=== PATIENT | female | born 1965 | race Caucasian/White ===

== ENCOUNTER → 2019-02-27 | Outpatient (CLI) | payer MEDICARE ==
--- NOTE | 2019-02-27 09:58 | RADIOLOGY REPORT (SQ) ---
EXAM DESCRIPTION: MRI CERVICAL SPINE COMBO COMPLETED DATE/TIME: 02/27/2019 9:00 am REASON FOR STUDY: CERVICAL DISC DISORDER WITH RADICULOPATHY (M50.10) M50.10 CERVICAL DISC DISORDER W RADICULOPATHY, UNSP CERVICAL COMPARISON: None. TECHNIQUE: Sagittal and Axial imaging includes T1, T2, STIR and gradient echo sequences. T1 post kayode olinium sequences. CONTRAST TYPE AND DOSE: 10 mL Dotarem. RENAL FUNCTION: GFR > 60. LIMITATIONS: Postoperative artifact from anterior fusion. This obscures regional tissues to some ex tent. FINDINGS: ALIGNMENT: Normal. VERTEBRAE: Intact. BONE MARROW: Normal. No marrow replacement or reactive changes. DISCS: Above and below surgery, generally maintained. HARDWARE: Anterior instrumentation with susceptibility artifact spanning C3 through C6. CORD AND BASE OF BRAIN: Artifact versus subtle dorsal intrasubstance cord signal at roughly the C5-6 level. This may represent minimal myelopathic signal in the cord. SOFT TISSUES: Normal as assessed. Shotty neck nodes. C1-C2: No significant spinal stenosis. C2-C3: No significant spinal stenosis or exit foraminal stenosis. C3-C4: No significant spinal stenosis or exit foraminal stenosis. C4-C5: No significant spinal stenosis or exit foraminal stenosis. C5-C6: Suspect mild posterior disc osteophyte complex without cord impingement. Mild central narrowi ng here. C6-C7: No significant spinal stenosis or exit foraminal stenosis. C7-T1: No significant spinal stenosis or exit foraminal stenosis. UPPER THORACIC: Incompletely imaged. No significant spinal stenosis or exit foraminal stenosis. ENHANCEMENT: No abnormal enhancement. OTHER: No other significant finding. IMPRESSION: 1. Prior anterior instrumentation, C3 through C6. 2. Suspect some slight central canal encroachment at the C5-6 level with minimal disc osteophyte comp chanda. No cord compression or overt spinal stenosis. COMMENT: None. TECHNICAL DOCUMENTATION: JOB ID: [id number] [employer]- All Rights Reserved Reading location - IP/workstation name: [email or web address]
== END ==
LOC: RAD 07:25
PROVIDERS: ATTEND Nurse Practitioner Primary Care
DX: M50.10 Cervical disc disorder with radiculopathy, unspecified cervical region (principal)
CPT/HCPCS: 72156; A9576

== ENCOUNTER → 2019-04-28 | Outpatient (CLI) | payer MEDICARE ==
[~2019-04-28] MED LIST: DIAZEPAM 5 MG TABLET ONE
--- NOTE | 2019-04-28 15:48 | RADIOLOGY REPORT (SQ) ---
EXAM DESCRIPTION: L SPINE FLEX/EXT ONLY COMPLETED DATE/TIME: 04/28/2019 2:51 pm REASON FOR STUDY: LUMBAR RADICULOPATHY M54.16 RADICULOPATHY, LUMBAR REGION R26.2 DIFFICULTY IN WAL JONH, NOT ELSEWHERE CLASSIFIED M62.81 MUSCLE WEAKNESS (GENERALIZED) COMPARISON: None. NUMBER OF VIEWS: Two view. TECHNIQUE: Lateral views of the lumbar spine with flexion and extension. LIMITATIONS: None. FINDINGS: MINERALIZATION: Normal. SEGMENTATION: Normal. No transitional anatomy. ALIGNMENT: Normal. FLEXION/EXTENSION: No instability. VERTEBRAE: Maintained height. No fracture or worrisome bone lesion. DISCS: Preserved height. No significant osteophytes or end plate irregularity. POSTERIOR ELEMENTS: Pedicles and facets are intact. No pars defect or posterior arch defects. HARDWARE: None in the spine. OTHER: No other significant finding. IMPRESSION: NO SIGNIFICANT FINDING IN THE SPINE. NO INSTABILITY ON FLEXION/EXTENSION. TECHNICAL DOCUMENTATION: JOB ID: [id number] [employer]- All Rights Reserved Reading location - IP/workstation name: [email or web address]
--- NOTE | 2019-04-28 16:35 | RADIOLOGY REPORT (SQ) ---
EXAM DESCRIPTION: MRI HEAD WITHOUT COMPLETED DATE/TIME: 04/28/2019 3:52 pm REASON FOR STUDY: DIFFICULTY IN WALKING, NOT ELSEWHERE CLASSIFIED M54.16 RADICULOPATHY, LUMBAR DODIE ON R26.2 DIFFICULTY IN WALKING, NOT ELSEWHERE CLASSIFIED M62.81 MUSCLE WEAKNESS (GENERALIZED) COMPARISON: None. TECHNIQUE: Multiplanar imaging includes non-contrasted T1, T2, FLAIR, and diffusion with ADC map seq uences. Images stored on PACS. LIMITATIONS: None. FINDINGS: ANATOMY: No developmental anomalies. Normal vascular flow voids. Pituitary fossa normal. CSF SPACES: Normal in size and contour. No hemorrhage. CEREBRUM: There is an old lacunar infarct in the left posterior thalamus on axial T2 image 15. Minim al chronic small vessel ischemic changes present in the deep hemispheric white matter along the left atrium, lateral ventricle. No MR evidence of hemispheric acute ischemic change, acute hemorrhage mas s effect or midline shift. POSTERIOR FOSSA: A subacute left pontine nonhemorrhagic infarct is present, best shown on axial diffu mick series 4, image 8. No hemorrhage. No edema, masses or mass effect. Internal auditory canals, c erebello-pontine angles, mastoids normal. DIFFUSION IMAGING: Positive for a left pontine subacute infarct. ORBITS: No masses. Globes normal. PARANASAL SINUSES: No fluid levels. Mucosa normal. OTHER: No other significant finding. IMPRESSION: Positive study for left pontine subacute infarct. Remote prior left thalamus lacunar infarct and left deep periatrial white matter small vessel disease EVIDENCE OF ACUTE STROKE: Subacute nonhemorrhagic left pontine infarct TECHNICAL DOCUMENTATION: JOB ID: [id number] [employer]- All Rights Reserved Reading location - IP/workstation name: [email or web address]
--- NOTE | 2019-04-28 16:42 | RADIOLOGY REPORT (SQ) ---
EXAM DESCRIPTION: MRI LUMBAR SPINE WITHOUT COMPLETED DATE/TIME: 04/28/2019 3:52 pm REASON FOR STUDY: LUMBAR RADICULOPATHY M54.16 RADICULOPATHY, LUMBAR REGION R26.2 DIFFICULTY IN WAL JONH, NOT ELSEWHERE CLASSIFIED M62.81 MUSCLE WEAKNESS (GENERALIZED) COMPARISON: None. TECHNIQUE: Sagittal and Axial imaging includes T1, T2, STIR and gradient echo sequences. Coronal T2/ HASTE imaging. LIMITATIONS: None. FINDINGS: VISUALIZED UPPER ABDOMEN: Limited evaluation. No acute or suspicious findings suggested. SEGMENTATION: No transitional anatomy. The lowest well-developed disc space is labeled L5-S1. ALIGNMENT: Minimal anterolisthesis of L4 over L5 VERTEBRAE: Intact. BONE MARROW: Normal. No marrow replacement or reactive changes. DISC SIGNAL: Diffuse decreased T2 weighted intervertebral disc signal without disc space loss of heig ht POSTERIOR ELEMENTS: Generally intact. No pars defect evident. HARDWARE: None in the spine. CORD AND CONUS: Normal in size and signal intensity. Conus at the L1-2 level. SOFT TISSUES: No aortic aneurysm seen. No bulky retroperitoneal adenopathy or mass. No paraspinal mas s or fluid. T11-12: At the upper edge of the field of view. Moderate bilateral facet hypertrophy is present at T11-12 causing mild bilateral foraminal narrowing. No central stenosis. T12-L1: Unremarkable L1-L2: Moderate bilateral facet hypertrophy is present with ligamentum flavum thickening. No posteri or disc bulging. No central or foraminal stenosis. L2-L3: Moderate bilateral facet hypertrophy is present with ligamentum flavum thickening. No posteri or disc bulging. No central or foraminal stenosis. L3-L4: Moderate bilateral facet and ligament hypertrophy is present. No posterior disc bulging or si gnificant central or foraminal stenosis. L4-L5: Mild central canal stenosis is present at L4-5, resulting from bulky bilateral facet hypertrop hy, mild grade 1 anterolisthesis of L4 over L5, and minimal posterior disc bulging. Mild bilateral i nferior foraminal narrowing is present without exiting L4 nerve root impingement L5-S1: Moderate bilateral facet and ligament hypertrophy is present. Moderate right, mild left ashly inal narrowing. No significant central stenosis. SACRUM: Visualized upper sacrum intact. OTHER: No other significant findings. IMPRESSION: Degenerative changes with multilevel facet arthropathy. No high-grade central or forami nal encroachment TECHNICAL DOCUMENTATION: JOB ID: [id number] [employer]- All Rights Reserved Reading location - IP/workstation name: [email or web address]
== END ==
LOC: RAD 12:11
PROVIDERS: ATTEND Specialist
DX: M54.16 Radiculopathy, lumbar region (principal); I63.9 Cerebral infarction, unspecified; R26.2 Difficulty in walking, not elsewhere classified; M62.81 Muscle weakness (generalized)
CPT/HCPCS: 70551; 72148; 72120; A9270

== ENCOUNTER → 2019-05-04 | Outpatient (CLI) | payer MEDICARE ==
--- NOTE | 2019-05-04 13:00 | RADIOLOGY REPORT (SQ) ---
EXAM DESCRIPTION: CAROTID DOPPLER COMPLETED DATE/TIME: 05/04/2019 12:17 pm REASON FOR STUDY: CAROTID STENOSIS I65.29 OCCLUSION AND STENOSIS OF UNSPECIFIED CAROTID ARTERY COMPARISON: None. TECHNIQUE: Grayscale ultrasound, Doppler velocity and spectra, and color Doppler images acquired of the extra-cranial carotid and vertebral arteries. Images stored on PACS. LIMITATIONS: None. FINDINGS: RIGHT CAROTID CCA Velocities: Within normal limits. ICA Velocities Peak systolic 263 cm/s in the midportion. End diastolic 107 cm/s. Proximal ICA/CCA peak systolic ratio 3.82. Spectra normal. Moderate plaque and luminal narrowing in the proximal and mid right ICA. LEFT CAROTID CCA Velocities: Within normal limits. ICA Velocities Peak systolic 105 cm/s. End diastolic 45 cm/s. Proximal ICA/CCA peak systolic ratio 1.03. Spectra normal. Mild -moderate plaque. VERTEBRAL ARTERIES: Antegrade flow. Normal waveforms. SUBCLAVIAN ARTERIES: No finding. OTHER: No other significant finding. IMPRESSION: Moderate right mid ICA stenosis, greater than 70% by velocity and grayscale. COMMENT: Quality ID #195: Velocity criteria are extrapolated from the diameter data as defined by t he Society of Radiologists in Ultrasound Consensus Conference. Radiology 2003: 229; 340-346. TECHNICAL DOCUMENTATION: JOB ID: [id number] [place]-72 2010 [employer]- All Rights Reserved Reading location - IP/workstation name: [email or web address]
== END ==
LOC: SP 10:14
PROVIDERS: ATTEND Specialist
DX: I65.21 Occlusion and stenosis of right carotid artery (principal)
CPT/HCPCS: 93880

== ENCOUNTER 2019-05-28 13:58 | Inpatient (IN) | payer MEDICARE ==
[2019-05-28] MEDS ORDERED: NORMAL SALINE 1000 ML 1,000 ML IV ONE ×2 (14:12→15:13)
--- NOTE | 2019-05-28 14:41 | RADIOLOGY REPORT (SQ) ---
EXAM DESCRIPTION: CHEST SINGLE VIEW COMPLETED DATE/TIME: 05/28/2019 2:32 pm REASON FOR STUDY: AMS COMPARISON: None. NUMBER OF VIEWS: One view. TECHNIQUE: Single frontal radiographic image of the chest acquired. LIMITATIONS: None. FINDINGS: LUNGS AND PLEURA: Stable appearance. MEDIASTINUM AND HILAR STRUCTURES: Stable heart size and mediastinal structures. HEART AND VASCULAR STRUCTURES: Stable appearance. SUPPORT DEVICES: Appropriate location without change. BONES: No acute findings. OTHER: No other significant finding. IMPRESSION: STABLE APPEARANCE OF THE CHEST. SUPPORT DEVICES UNCHANGED. TECHNICAL DOCUMENTATION: JOB ID: [id number] [employer]- All Rights Reserved Reading location - IP/workstation name: [email or web address]
[2019-05-28 14:51] LABS: VENOUS BLOOD BASE EXCESS -11.3 mmol/L; VENOUS BLOOD PCO2 40.8 mmHg (35-63); VENOUS BLOOD PH 7.21 (7.30-7.42)
--- NOTE | 2019-05-28 14:54 | RADIOLOGY REPORT (SQ) ---
EXAM DESCRIPTION: CT CERVICAL SPINE WITHOUT COMPLETED DATE/TIME: 05/28/2019 2:43 pm REASON FOR STUDY: AMS COMPARISON: None. TECHNIQUE: Axial images acquired through the cervical spine without intravenous contrast. Images re viewed with lung, soft tissue and bone windows. Reconstructed coronal and sagittal MPR images review ed. Images stored on PACS. All CT scanners at this facility use dose modulation, iterative reconstruction, and/or weight based d osing when appropriate to reduce radiation dose to as low as reasonably achievable (ALARA). [facility]: Dose Right [facility]: CareDose [facility]: Dose Right [facility]: Teradose 4D [facility]: [employer] RADIATION DOSE: CT Rad equipment meets quality standard of care and radiation dose reduction techniq ues were employed. CTDIvol: 17.7 - 23.9 mGy. DLP: 692 mGy-cm. mGy. LIMITATIONS: None. FINDINGS: ALIGNMENT: Anatomic. MINERALIZATION: Normal. VERTEBRAL BODIES: No fractures or dislocation. DISCS: Multilevel discectomy and fusion from C3 through C7. FACETS, LATERAL MASSES, POSTERIOR ELEMENTS: No fractures. No dislocation. No acute findings. HARDWARE: None in the spine. VISUALIZED RIBS: No fractures. LUNG APICES AND SOFT TISSUES: Emphysema. OTHER: No other significant finding. IMPRESSION: No fracture or static subluxation of the cervical spine. Multilevel discectomy and fusi on from C3 through C7. TECHNICAL DOCUMENTATION: JOB ID: [id number] Quality ID # [id number]: Final reports with documentation of one or more dose reduction techniques (e.g., Au tomated exposure control, adjustment of the mA and/or kV according to patient size, use of iterative reconstruction technique) 2010 [employer]- All Rights Reserved Reading location - IP/workstation name: [email or web address]
[2019-05-28 14:56] LABS: ABSOLUTE BASOPHILS # (AUTO) 0.1 10^3/uL (0.0-0.2); ABSOLUTE LYMPHOCYTES (AUTO) 1.2 10^3/uL (0.5-4.7); ABSOLUTE MONOCYTES (AUTO) 1.8 10^3/uL (0.1-1.4); ABSOLUTE NEUT (AUTO) 16.1 10^3/uL (1.7-8.2); BASOPHILS % (AUTO) 0.6 % (0-2); HEMATOCRIT 48.4 % (36.0-47.0); HEMOGLOBIN 15.6 g/dL (12.0-15.5); LYMPHOCYTES % (AUTO) 6.3 % (13-45); MEAN CORPUSCULAR HEMOGLOBIN 28.9 pg (27.0-33.4); MEAN CORPUSCULAR HGB CONC 32.3 g/dL (32.0-36.0); MEAN CORPUSCULAR VOLUME 90 fl (80-97); MONOCYTES % (AUTO) 9.3 % (3-13); PLATELET COUNT 389 10^3/uL (150-450); RED CELL DISTRIBUTION WIDTH 15.5 % (11.5-14.0); SEGMENTED NEUTROPHILS % (AUTO) 83.8 % (42-78); TOTAL CELLS COUNTED % (AUTO) 100 %; WHITE BLOOD COUNT 19.2 10^3/uL (4.0-10.5)
--- NOTE | 2019-05-28 14:56 | RADIOLOGY REPORT (SQ) ---
EXAM DESCRIPTION: CT HEAD WITHOUT COMPLETED DATE/TIME: 05/28/2019 2:43 pm REASON FOR STUDY: AMS COMPARISON: None. TECHNIQUE: Axial images acquired through the brain without intravenous contrast. Images reviewed wi th bone, brain and subdural windows. Additional sagittal and coronal reconstructions were generated. Images stored on PACS. All CT scanners at this facility use dose modulation, iterative reconstruction, and/or weight based d osing when appropriate to reduce radiation dose to as low as reasonably achievable (ALARA). [facility]: Dose Right [facility]: CareDose [facility]: Dose Right [facility]: Teradose 4D [facility]: [employer] RADIATION DOSE: CT Rad equipment meets quality standard of care and radiation dose reduction techniq ues were employed. CTDIvol: 53.2 mGy. DLP: 1017 mGy-cm. mGy. LIMITATIONS: None. FINDINGS: VENTRICLES: Normal size and contour. CEREBRUM: No masses. No hemorrhage. No midline shift. No evidence for acute infarction. Normal gra y/white matter differentiation. No areas of low density in the white matter. CEREBELLUM: No masses. No hemorrhage. No alteration of density. No evidence for acute infarction. EXTRAAXIAL SPACES: No fluid collections. No masses. ORBITS AND GLOBE: No intra- or extraconal masses. Normal contour of globe without masses. CALVARIUM: No fracture. PARANASAL SINUSES: No fluid or mucosal thickening. SOFT TISSUES: No mass or hematoma. OTHER: No other significant finding. IMPRESSION: No acute intracranial pathology. EVIDENCE OF ACUTE STROKE: NO. COMMENT: Quality ID # 436: Final reports with documentation of one or more dose reduction techniques (e.g., Automated exposure control, adjustment of the mA and/or kV according to patient size, use of iterative reconstruction technique) TECHNICAL DOCUMENTATION: JOB ID: [id number] [employer]- All Rights Reserved Reading location - IP/workstation name: [email or web address]
[2019-05-28 15:09] LABS: APPEARANCE,URINE CLEAR; BILIRUBIN,URINE NEGATIVE (NEGATIVE); COLOR,URINE YELLOW; GLUCOSE, URINE >=500 mg/dL (NEGATIVE); KETONES,URINE 20 mg/dL (NEGATIVE); LEUKOCYTE ESTERASE,URINE NEGATIVE (NEGATIVE); NITRITE,URINE NEGATIVE (NEGATIVE); PROTEIN,URINE 100 mg/dL (NEGATIVE); URINE SPECIFIC GRAVITY 1.029; UROBILINOGEN,URINE NEGATIVE mg/dL (<2.0)
[2019-05-28 15:18] LABS: ALANINE AMINOTRANSFERASE 19 U/L (9-52); ALBUMIN 4.5 g/dL (3.5-5.0); ALKALINE PHOSPHATASE 189 U/L (38-126); ASPARTATE AMINO TRANSFERASE 25 U/L (14-36); BILIRUBIN,DIRECT 0.6 mg/dL (0.0-0.4); BILIRUBIN,TOTAL 0.7 mg/dL (0.2-1.3); BLOOD UREA NITROGEN 31 mg/dL (7-20); CALCIUM 10.2 mg/dL (8.4-10.2); CREATINE KINASE 414 U/L (30-135); POTASSIUM 4.4 mmol/L (3.6-5.0); TOTAL PROTEIN 7.6 g/dL (6.3-8.2)
[2019-05-28 15:27] LABS: CREATINE KINASE MB 6.78 ng/mL (<4.55)
[2019-05-28 15:33] LABS: FREE T3 2.3 pg/mL (2.77-5.27); FREE T4 (FREE THYROXINE) 1.18 ng/dL (0.78-2.19)
[2019-05-28 15:35] LABS: TROPONIN I 0.13 ng/mL
[2019-05-28] MEDS ORDERED: NORMAL SALINE 1000 ML 1,000 ML IV PRN (15:35)
[2019-05-28 15:37] LABS: INTERNATIONAL RATION (INR) 0.97; PROTHROMBIN TIME 12.8 SEC (11.4-15.4)
[2019-05-28] MEDS: INSULIN REG, HUMAN 100 UNIT/ML 3 ML VIAL (PYX) IV ONE ×2 (15:42→16:55)
[2019-05-28 15:47] LABS: THYROID STIMULATING HORMONE 6.16 uIU/mL (0.47-4.68)
[2019-05-28 15:48] LABS: CARBON DIOXIDE 17 mmol/L (22-30); CHLORIDE 107 mmol/L (98-107)
[2019-05-28 15:49] LABS: ALCOHOL < 10 mg/dL (NONE DETECTED); ANION GAP 21 (5-19)
[2019-05-28 15:51] LABS: GLUCOSE 690 mg/dL (75-110)
[2019-05-28] MEDS ORDERED: DEXTROSE 40% GEL 15 GM TUBE X 2 PO PRN (16:00)
[2019-05-28] MEDS ORDERED: DEXTROSE 50%-WATER SYRINGE 25 GM/50 ML DOSE IV PRN (16:00)
[2019-05-28] MEDS ORDERED: DEXTROSE 40% GEL 15 GM TUBE PO PRN (16:00)
[2019-05-28] MEDS ORDERED: DEXTROSE 50%-WATER SYRINGE 12.5 GM/25 ML DOSE IV PRN (16:00)
[2019-05-28] MEDS ORDERED: INSULIN, REGULAR 100 UNIT/100 ML NORMAL SALINE IV PRN ×2 (16:00)
[2019-05-28] MEDS ORDERED: GLUCAGON,HUMAN RECOMB 1 MG INJ IM PRN (16:00)
[2019-05-28 16:02] LABS: URINE AMPHETAMINES SCREEN NEGATIVE; URINE BARBITURATES SCREEN NEGATIVE; URINE BENZODIAZEPINES SCREEN NEGATIVE; URINE COCAINE SCREEN NEGATIVE; URINE MARIJUANA (THC) SCREEN NEGATIVE; URINE METHADONE SCREEN NEGATIVE; URINE PHENCYCLIDINE SCREEN NEGATIVE
[2019-05-28 16:08] LABS: ACETAMINOPHEN < 10 ug/mL (10-30); SALICYLATE < 1.0 mg/dL (2.0-20.0)
[2019-05-28] MEDS ORDERED: LORAZEPAM INJ 2 MG/1 ML VIAL IV ONE (17:25)
[2019-05-28] MEDS: LIDOCAINE 1% INJ-PF (10 MG/ML) 30 ML SDV INJ ONE ×2 (17:38→19:32)
[2019-05-28] MEDS ORDERED: ACETAMINOPHEN 325 MG TABLET PO PRN (17:41)
[2019-05-28] MEDS ORDERED: IPRATROPIUM/ALBUTEROL 0.5-2.5 MG/3 ML AMPUL NEB PRN (17:41)
[2019-05-28] MEDS ORDERED: ONDANSETRON HCL INJ/PF 4 MG/2 ML SDV IV PRN (17:41)
[2019-05-28] MEDS ORDERED: CEFTRIAXONE 1 GM/D5W RTU 1 GM/50 ML RTUPB IV ONE (18:00)
[2019-05-28] MEDS ORDERED: VANCOMYCIN HCL 0 MG in DEXTROSE 5%-WATER 250 ML IV NR (18:00)
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
--- NOTE | 2019-05-28 18:06 | PDOC H&P ---
History of Present Illness Admission Date/PCP: DELFINA NIETO MD History of Present Illness: SHELLEY RODRÍGUEZ is a 54 year old female patient brought by EMS for altered mental status. Since patient is mentally altered and sedated she is not source of history. Brief history is obtained orally from the ER attending and reviewing available charts. Per ER attending note patient arrives via EMS was found by neighbor under her bed. Patient initially was unresponsive but later patient become agitated and combative. She was given by EMS to milligram of IV Ativan. Upon arrival patient was found to be on 5 L oxygen via nasal cannula and she saturates 97%. Her initial blood work shows mild hyponatremia with sodium of 145.3 market hyperglycemia with blood glucose level of 680, creatinine of 1.26 and mild rhabdomyolysis. Her CT head spine and MRI of the brain are negative for acute process. With unresponsiveness and leukocytosis the possibility of meningitis entertained and LP requested. Further detailed history and review of systems unobtainable. Social History Smoking Status: Current Every Day Smoker - Advance Directive Resuscitation Status: Full Code Family History Parental Family History Reviewed: Yes Children Family History Reviewed: Yes Sibling(s) Family History Reviewed.: Yes Medication/Allergy Home Medications: Atorvastatin Calcium [Lipitor 10 mg Tablet] 10 mg PO QHS 05/28/19 Baclofen [Baclofen 10 mg Tablet] 10 mg PO TIDP PRN 05/28/19 Dexamethasone 2 mg PO Q6 05/28/19 Gabapentin [Neurontin] 800 mg PO QIDP PRN 05/28/19 Insulin Lispro [Humalog Kwikpen U-100] See Protocol SQ MEALS 05/28/19 Levothyroxine Sodium [Synthroid] 200 mcg PO Q6AM 05/28/19 Lisinopril [Prinivil] 20 mg PO DAILY 05/28/19 Metformin HCl [Glucophage] 1,000 mg PO BID 05/28/19 Quetiapine Fumarate [Seroquel 100 mg Tablet] 100 mg PO QHS 05/28/19 Zolpidem Tartrate [Ambien] 10 mg PO HSP PRN 05/28/19 Review of Systems ROS unobtainable: Due to mental status Physical Exam Vital Signs: Temp Pulse Resp BP Pulse Ox 19 194/109 H 100 05/28/19 16:36 05/28/19 16:36 05/28/19 16:15 Intake & Output 05/27/19 05/28/19 05/29/19 06:59 06:59 06:59 Intake Total 2000 Balance 2001 Weight 58.4 kg General appearance: PRESENT: mild distress Head exam: PRESENT: other - Laceration on her neck and erythema over the right supraorbital region Eye exam: PRESENT: other - [place] sclerae Neck exam: ABSENT: carotid bruit, JVD, lymphadenopathy, thyromegaly Respiratory exam: PRESENT: clear to auscultation jaqueline. ABSENT: rales, rhonchi, wheezes Cardiovascular exam: PRESENT: RRR. ABSENT: diastolic murmur, rubs, systolic murmur GI/Abdominal exam: PRESENT: normal bowel sounds, soft. ABSENT: distended, guarding, mass, organolmegaly, rebound, tenderness Neurological exam: PRESENT: other - She responds to painful stimuli appropriately but withdrawing herself from the stimulus Results Laboratory Results: 05/28/19 14:20 05/28/19 14:20 05/28/19 05/28/19 05/28/19 14:20 14:20 14:20 WBC 19.2 H RBC 5.40 H Hgb 15.6 H Hct 48.4 H MCV 90 MCH 28.9 MCHC 32.3 RDW 15.5 H Plt Count 389 Seg Neutrophils % 83.8 H Lymphocytes % 6.3 L Monocytes % 9.3 Eosinophils % 0.0 Basophils % 0.6 Absolute Neutrophils 16.1 H Absolute Lymphocytes 1.2 Absolute Monocytes 1.8 H Absolute Eosinophils 0.0 Absolute Basophils 0.1 VBG pH VBG pCO2 VBG HCO3 VBG Base Excess Sodium 145.3 H Potassium 4.4 Chloride 107 Carbon Dioxide 17 L Anion Gap 21 H BUN 31 H Creatinine 1.26 H Est GFR ( Amer) 53 L Est GFR (Non-Af Amer) 44 L Glucose 690 H* Lactic Acid 3.3 H Calcium 10.2 Total Bilirubin 0.7 AST 25 ALT 19 Alkaline Phosphatase 189 H Ammonia Total Protein 7.6 Albumin 4.5 TSH Free T4 Free T3 pg/mL Urine Color Urine Appearance Urine pH Ur Specific [place] Urine Protein Urine Glucose (UA) Urine Ketones Urine Blood Urine Nitrite Ur Leukocyte Esterase Urine WBC (Auto) 05/28/19 05/28/19 05/28/19 14:20 14:20 14:20 WBC RBC Hgb Hct MCV MCH MCHC RDW Plt Count Seg Neutrophils % Lymphocytes % Monocytes % Eosinophils % Basophils % Absolute Neutrophils Absolute Lymphocytes Absolute Monocytes Absolute Eosinophils Absolute Basophils VBG pH 7.21 L VBG pCO2 40.8 VBG HCO3 16.0 L VBG Base Excess -11.3 Sodium Potassium Chloride Carbon Dioxide Anion Gap BUN Creatinine Est GFR ( Amer) Est GFR (Non-Af Amer) Glucose Lactic Acid Calcium Total Bilirubin AST ALT Alkaline Phosphatase Ammonia Total Protein Albumin TSH 6.16 H Free T4 1.18 Free T3 pg/mL 2.30 L Urine Color YELLOW Urine Appearance CLEAR Urine pH 5.0 Ur Specific [place] 1.029 Urine Protein 100 H Urine Glucose (UA) >=500 H Urine Ketones 20 H Urine Blood MODERATE H Urine Nitrite NEGATIVE Ur Leukocyte Esterase NEGATIVE Urine WBC (Auto) 1 05/28/19 15:05 WBC RBC Hgb Hct MCV MCH MCHC RDW Plt Count Seg Neutrophils % Lymphocytes % Monocytes % Eosinophils % Basophils % Absolute Neutrophils Absolute Lymphocytes Absolute Monocytes Absolute Eosinophils Absolute Basophils VBG pH VBG pCO2 VBG HCO3 VBG Base Excess Sodium Potassium Chloride Carbon Dioxide Anion Gap BUN Creatinine Est GFR ( Amer) Est GFR (Non-Af Amer) Glucose Lactic Acid Calcium Total Bilirubin AST ALT Alkaline Phosphatase Ammonia < 8.7 L Total Protein Albumin TSH Free T4 Free T3 pg/mL Urine Color Urine Appearance Urine pH Ur Specific [place] Urine Protein Urine Glucose (UA) Urine Ketones Urine Blood Urine Nitrite Ur Leukocyte Esterase Urine WBC (Auto) 05/28/19 05/28/19 14:20 14:20 Creatine Kinase 414 H CK-MB (CK-2) 6.78 H Troponin I 0.130 Impressions: Cervical Spine CT 05/28/19 14:12 IMPRESSION: No fracture or static subluxation of the cervical spine. Multileve l discectomy and fusion from C3 through C7. Head CT 05/28/19 14:12 IMPRESSION: No acute intracranial pathology. EVIDENCE OF ACUTE STROKE: NO. Chest X-Ray 05/28/19 14:13 IMPRESSION: STABLE APPEARANCE OF THE CHEST. SUPPORT DEVICES UNCHANGED. Assessment and Plan - Diagnosis (1) Acute metabolic encephalopathy Is this a current diagnosis for this admission?: Yes Plan: Hyperglycemia, acute kidney injury metabolic acidosis could explain her altered mental status. LP requested to rule out meningitis. Until meningitis is ruled out patient is on Rocephin and vancomycin. (2) DKA (diabetic ketoacidoses) Qualifiers: Diabetes mellitus type: type 2 Is this a current diagnosis for this admission?: Yes Plan: Patient has hyperglycemia of 690, metabolic acidosis and anion gap. Patient has been started on insulin drip and transferred to ICU. She will be managed according to DKA protocol. (3) Acute kidney injury Is this a current diagnosis for this admission?: Yes Plan: Creatinine of 1.26. Patient has been started on normal saline at rate of 200 mm/h which will correct the acute kidney injury. (5) Rhabdomyolysis Qualifiers: Encounter type: initial encounter Is this a current diagnosis for this admission?: Yes Plan: Will be corrected with hydration. (6) Leukocytosis Is this a current diagnosis for this admission?: Yes Plan: We will monitor her CBC. - Inpatient Certification Medical Necessity: Need Close Monitoring Due to Risk of Patient Decompensation, Need For IV Fluids, Need for IV Antibiotics
[2019-05-28 18:57] LABS: ALANINE AMINOTRANSFERASE 24 U/L (9-52); ALKALINE PHOSPHATASE 164 U/L (38-126); ANION GAP 18 (5-19); ASPARTATE AMINO TRANSFERASE 24 U/L (14-36); BILIRUBIN,DIRECT 0.5 mg/dL (0.0-0.4); BILIRUBIN,TOTAL 0.6 mg/dL (0.2-1.3); BLOOD UREA NITROGEN 28 mg/dL (7-20); CALCIUM 9.4 mg/dL (8.4-10.2); CARBON DIOXIDE 15 mmol/L (22-30); CHLORIDE 115 mmol/L (98-107); POTASSIUM 4.4 mmol/L (3.6-5.0); TOTAL PROTEIN 6.9 g/dL (6.3-8.2)
[2019-05-28] MEDS ORDERED: ATORVASTATIN CALCIUM 20 MG TABLET PO ONE (19:00)
[2019-05-28] MEDS ORDERED: ASPIRIN 325 MG TABLET PO ONE (19:00)
[2019-05-28 19:08] LABS: GLUCOSE 501 mg/dL (75-110)
[2019-05-28 19:12] LABS: GLUCOSE,CSF 357 mg/dL (40-70); PROTEIN,CSF 95 mg/dL (12-60)
[2019-05-28 19:15] LABS: APPEARANCE ALL TUBES CLEAR; COLOR ALL TUBES COLORLESS; CSF TUBE NUMBER 4
[2019-05-28 19:18] LABS: RED BLOOD CELL,CSF 1 /uL (0-10); WHITE BLOOD CELL,CSF 3 /uL (0-5)
[2019-05-28 19:19] LABS: APPEARANCE ALL TUBES CLEAR; COLOR ALL TUBES COLORLESS
[2019-05-28 19:34] LABS: CSF TUBE NUMBER 1
[2019-05-28 19:39] LABS: RED BLOOD CELL,CSF 1023 /uL (0-10); WHITE BLOOD CELL,CSF 4 /uL (0-5)
[2019-05-28] MEDS: ENOXAPARIN SODIUM INJ 40 MG/0.4 ML DISP.SYRIN SUBCUT SCH (19:43)
[2019-05-28] MEDS: VANCOMYCIN HCL 500 MG in DEXTROSE 5%-WATER 100 ML IV SCH (19:57)
--- NOTE | 2019-05-28 20:05 | EKG REPORT ---
SEVERITY:- ABNORMAL ECG - SINUS RHYTHM BIATRIAL ABNORMALITIES LEFT VENTRICULAR HYPERTROPHY PROLONGED QT INTERVAL : Confirmed by: Catie Childers MD 28-May-2019 20:03:37
[2019-05-28 20:31] LABS: BLOOD UREA NITROGEN 26 mg/dL (7-20); CALCIUM 9.6 mg/dL (8.4-10.2); POTASSIUM 4.3 mmol/L (3.6-5.0)
[2019-05-28 20:38] LABS: ANION GAP 19 (5-19); CARBON DIOXIDE 15 mmol/L (22-30); CHLORIDE 114 mmol/L (98-107)
[2019-05-28 20:42] LABS: GLUCOSE 479 mg/dL (75-110)
[2019-05-28] MEDS: NORMAL SALINE 1000 ML 1,000 ML IV PRN (21:37)
[2019-05-28] MEDS ORDERED: HALOPERIDOL LACTATE INJ 5 MG/1 ML VIAL IV ONE (23:37)
[2019-05-29] MEDS: LORAZEPAM INJ 2 MG/1 ML VIAL IV PRN ×3 (01:53→18:05)
[2019-05-29] MEDS: NORMAL SALINE 1000 ML 1,000 ML IV PRN (02:04)
[2019-05-29] MEDS: CEFTRIAXONE 2 GM/D5W RTU 2 GM/50 ML RTUPB IV SCH ×2 (06:23→17:15)
[2019-05-29 06:36] LABS: ARTERIAL BLOOD BASE EXCESS -4.5 mmol/L; ARTERIAL BLOOD H2CO3 0.95 mmol/L (1.05-1.35); ARTERIAL BLOOD HCO3 19.2 mmol/L (20-24); ARTERIAL BLOOD O2 SATURATION 96.6 % (94-98); ARTERIAL BLOOD PCO2 31.7 mmHg (35-45); ARTERIAL BLOOD PO2 85.9 mmHg (80-100); ARTERIAL BLOOD TOTAL CO2 20.1 mmol/L (21-25)
[2019-05-29 06:43] LABS: ARTERIAL BLOOD FIO2 ROOM AIR
[2019-05-29 07:12] LABS: ABSOLUTE LYMPHOCYTES (AUTO) 2.4 10^3/uL (0.5-4.7); MEAN CORPUSCULAR HEMOGLOBIN 28.8 pg (27.0-33.4); TOTAL CELLS COUNTED % (AUTO) 100 %
[2019-05-29 07:18] LABS: ABSOLUTE BASOPHILS # (AUTO) 0.1 10^3/uL (0.0-0.2); ABSOLUTE MONOCYTES (AUTO) 1.7 10^3/uL (0.1-1.4); ABSOLUTE NEUT (AUTO) 14.7 10^3/uL (1.7-8.2); BASOPHILS % (AUTO) 0.4 % (0-2); HEMATOCRIT 41.3 % (36.0-47.0); HEMOGLOBIN 13.8 g/dL (12.0-15.5); LYMPHOCYTES % (AUTO) 12.7 % (13-45); MEAN CORPUSCULAR HGB CONC 33.4 g/dL (32.0-36.0); PLATELET COUNT 389 10^3/uL (150-450); RED BLOOD COUNT 4.78 10^6/uL (3.72-5.28); SEGMENTED NEUTROPHILS % (AUTO) 77.9 % (42-78); WHITE BLOOD COUNT 18.9 10^3/uL (4.0-10.5)
[2019-05-29] MEDS: VANCOMYCIN HCL 500 MG in DEXTROSE 5%-WATER 100 ML IV SCH (07:18)
[2019-05-29 07:29] LABS: ALANINE AMINOTRANSFERASE 25 U/L (9-52); ALKALINE PHOSPHATASE 155 U/L (38-126); ANION GAP 15 (5-19); ASPARTATE AMINO TRANSFERASE 55 U/L (14-36); BILIRUBIN,DIRECT 0.5 mg/dL (0.0-0.4); BILIRUBIN,TOTAL 0.8 mg/dL (0.2-1.3); BLOOD UREA NITROGEN 23 mg/dL (7-20); CALCIUM 9.5 mg/dL (8.4-10.2); CARBON DIOXIDE 17 mmol/L (22-30); CHLORIDE 118 mmol/L (98-107); CREATINE KINASE 1037 U/L (30-135); GLUCOSE 263 mg/dL (75-110); POTASSIUM 4.1 mmol/L (3.6-5.0); TOTAL PROTEIN 7.2 g/dL (6.3-8.2); TRIGLYCERIDES 398 mg/dL (<150)
[2019-05-29 07:33] LABS: MEAN CORPUSCULAR VOLUME 86 fl (80-97)
[2019-05-29 07:41] LABS: DIRECT LDL 263 mg/dL (<100)
[2019-05-29 07:43] LABS: CHOLESTEROL 435.11 mg/dL (0-200); VLDL CHOLESTEROL 79.6 mg/dL (10-31)
[2019-05-29] MEDS ORDERED: DEXTROSE 50%-WATER 25 GM/50 ML DISP.SYRIN IV PRN ×2 (08:22)
[2019-05-29] MEDS ORDERED: DEXTROSE 40% GEL 15 GM TUBE PO PRN ×2 (08:22)
[2019-05-29] MEDS ORDERED: GLUCAGON,HUMAN RECOMB 1 MG INJ IM PRN (08:22)
[2019-05-29] MEDS ORDERED: SODIUM BICARBONATE 8.4% INJ 50 MEQ/50 ML DISP.SYRIN IV ONE (09:00)
[2019-05-29] MEDS ORDERED: GABAPENTIN 400 MG CAPSULE PO PRN (09:00)
[2019-05-29] MEDS ORDERED: ACYCLOVIR 800 MG TABLET PO SCH (10:00)
[2019-05-29] MEDS: LISINOPRIL 10 MG TABLET PO SCH (10:21)
[2019-05-29] MEDS: PANTOPRAZOLE SODIUM 40 MG VIAL IV SCH (10:21)
--- NOTE | 2019-05-29 10:37 | PDOC PROGRESS REPORT ---
Subjective Progress Note for:: 05/29/19 Subjective:: 54 year old female patient brought by EMS for altered mental status. Since patient is mentally altered and sedated she is not source of history. Brief history is obtained orally from the ER attending and reviewing available charts. Per ER attending note patient arrives via EMS was found by neighbor under her bed. Patient initially was unresponsive but later patient become agitated and combative. She was given by EMS to milligram of IV Ativan. Upon arrival mykel morejon was found to be on 5 L oxygen via nasal cannula and she saturates 97%. Her initial blood work shows mild hyponatremia with sodium of 145.3 market hyperglycemia with blood glucose level of 680, creatinine of 1.26 and mild rhabdomyolysis. Her CT head spine and MRI of the brain are negative for acute process. With unresponsiveness and leukocytosis the possibility of meningitis entertained and LP requested. Further detailed history and review of systems unobtainable. 05/[id number]-[id number]-old female admitted with altered mental status unable to get proper history. CT head was negative. Blood sugars are 619 at the time of admission they came around around 250 insulin drip was discontinued she is on sliding scale. Plan to do the MRI of the brain without contrast today and a CT of the neck today and consultation with ID was requested after the LP shows WBC of 4 and high glucose and high blood type protein. Waiting for the cell count and Gram stain. Presently on IV vancomycin and Zosyn and acyclovir is going to be added IV. Examination patient is moaning and moving all her upper and lower extremities pupils are very much dilated but not responding to the verbal commands not responding well to the painful stimuli. Reason For Visit: ACUTE METABOLIC ENCEPHALOPATHY. DKA Physical Exam Vital Signs: Temp Pulse Resp BP Pulse Ox 101.5 F H 124 H 25 H 220/110 H 97 05/29/19 08:00 05/29/19 09:22 05/29/19 08:52 05/29/19 08:00 05/29/19 08:52 Intake & Output 05/28/19 05/29/19 05/30/19 06:59 06:59 06:59 Intake Total 4069 Output Total 850 420 Balance 3219 -420 Weight 58.8 kg General appearance: PRESENT: other Head exam: PRESENT: atraumatic Eye exam: PRESENT: other - Bursa dilated mildly reactive. Mouth exam: PRESENT: moist, tongue midline Teeth exam: PRESENT: poor dentation Neck exam: ABSENT: carotid bruit, JVD, lymphadenopathy, thyromegaly Respiratory exam: PRESENT: decreased breath sounds Cardiovascular exam: PRESENT: tachycardia GI/Abdominal exam: PRESENT: normal bowel sounds, soft. ABSENT: distended, guarding, mass, organolmegaly, rebound, tenderness Rectal exam: PRESENT: deferred Gentrourinary exam: PRESENT: indwelling catheter Neurological exam: PRESENT: other - Patient is not responding to verbal commands not responding to painful stimuli spontaneously moving her upper and lower extremities. Pupils are dilated and reactive. Results Laboratory Results: 05/29/19 06:55 05/29/19 06:55 05/28/19 05/28/19 05/28/19 14:20 14:20 14:20 WBC 19.2 H RBC 5.40 H Hgb 15.6 H Hct 48.4 H MCV 90 MCH 28.9 MCHC 32.3 RDW 15.5 H Plt Count 389 Seg Neutrophils % 83.8 H Lymphocytes % 6.3 L Monocytes % 9.3 Eosinophils % 0.0 Basophils % 0.6 Absolute Neutrophils 16.1 H Absolute Lymphocytes 1.2 Absolute Monocytes 1.8 H Absolute Eosinophils 0.0 Absolute Basophils 0.1 Carbonic Acid HCO3/H2CO3 Ratio ABG pH ABG pCO2 ABG pO2 ABG HCO3 ABG O2 Saturation ABG Base Excess VBG pH VBG pCO2 VBG HCO3 VBG Base Excess FiO2 Sodium 145.3 H Potassium 4.4 Chloride 107 Carbon Dioxide 17 L Anion Gap 21 H BUN 31 H Creatinine 1.26 H Est GFR ( Amer) 53 L Est GFR (Non-Af Amer) 44 L Glucose 690 H* Lactic Acid 3.3 H Calcium 10.2 Total Bilirubin 0.7 AST 25 ALT 19 Alkaline Phosphatase 189 H Ammonia Total Protein 7.6 Albumin 4.5 Triglycerides Cholesterol LDL Cholesterol Direct VLDL Cholesterol HDL Cholesterol TSH Free T4 Free T3 pg/mL Urine Color Urine Appearance Urine pH Ur Specific [place] Urine Protein Urine Glucose (UA) Urine Ketones Urine Blood Urine Nitrite Ur Leukocyte Esterase Urine WBC (Auto) Fluid Tube Number CSF Volume CSF Appearance CSF Color CSF WBC CSF RBC CSF Glucose CSF Total Protein 05/28/19 05/28/19 05/28/19 14:20 14:20 14:20 WBC RBC Hgb Hct MCV MCH MCHC RDW Plt Count Seg Neutrophils % Lymphocytes % Monocytes % Eosinophils % Basophils % Absolute Neutrophils Absolute Lymphocytes Absolute Monocytes Absolute Eosinophils Absolute Basophils Carbonic Acid HCO3/H2CO3 Ratio ABG pH ABG pCO2 ABG pO2 ABG HCO3 ABG O2 Saturation ABG Base Excess VBG pH 7.21 L VBG pCO2 40.8 VBG HCO3 16.0 L VBG Base Excess -11.3 FiO2 Sodium Potassium Chloride Carbon Dioxide Anion Gap BUN Creatinine Est GFR ( Amer) Est GFR (Non-Af Amer) Glucose Lactic Acid Calcium Total Bilirubin AST ALT Alkaline Phosphatase Ammonia Total Protein Albumin Triglycerides Cholesterol LDL Cholesterol Direct VLDL Cholesterol HDL Cholesterol TSH 6.16 H Free T4 1.18 Free T3 pg/mL 2.30 L Urine Color YELLOW Urine Appearance CLEAR Urine pH 5.0 Ur Specific [place] 1.029 Urine Protein 100 H Urine Glucose (UA) >=500 H Urine Ketones 20 H Urine Blood MODERATE H Urine Nitrite NEGATIVE Ur Leukocyte Esterase NEGATIVE Urine WBC (Auto) 1 Fluid Tube Number CSF Volume CSF Appearance CSF Color CSF WBC CSF RBC CSF Glucose CSF Total Protein 05/28/19 05/28/19 05/28/19 15:05 18:30 18:30 WBC RBC Hgb Hct MCV MCH MCHC RDW Plt Count Seg Neutrophils % Lymphocytes % Monocytes % Eosinophils % Basophils % Absolute Neutrophils Absolute Lymphocytes Absolute Monocytes Absolute Eosinophils Absolute Basophils Carbonic Acid HCO3/H2CO3 Ratio ABG pH ABG pCO2 ABG pO2 ABG HCO3 ABG O2 Saturation ABG Base Excess VBG pH VBG pCO2 VBG HCO3 VBG Base Excess FiO2 Sodium 147.5 H Potassium 4.4 Chloride 115 H Carbon Dioxide 15 L Anion Gap 18 BUN 28 H Creatinine 1.03 Est GFR ( Amer) > 60 Est GFR (Non-Af Amer) 55 L Glucose 501 H* Lactic Acid 1.3 Calcium 9.4 Total Bilirubin 0.6 AST 24 ALT 24 Alkaline Phosphatase 164 H Ammonia < 8.7 L Total Protein 6.9 Albumin 4.0 Triglycerides Cholesterol LDL Cholesterol Direct VLDL Cholesterol HDL Cholesterol TSH Free T4 Free T3 pg/mL Urine Color Urine Appearance Urine pH Ur Specific [place] Urine Protein Urine Glucose (UA) Urine Ketones Urine Blood Urine Nitrite Ur Leukocyte Esterase Urine WBC (Auto) Fluid Tube Number CSF Volume CSF Appearance CSF Color CSF WBC CSF RBC CSF Glucose CSF Total Protein 05/28/19 05/28/19 05/28/19 18:30 18:30 18:30 WBC RBC Hgb Hct MCV MCH MCHC RDW Plt Count Seg Neutrophils % Lymphocytes % Monocytes % Eosinophils % Basophils % Absolute Neutrophils Absolute Lymphocytes Absolute Monocytes Absolute Eosinophils Absolute Basophils Carbonic Acid HCO3/H2CO3 Ratio ABG pH ABG pCO2 ABG pO2 ABG HCO3 ABG O2 Saturation ABG Base Excess VBG pH VBG pCO2 VBG HCO3 VBG Base Excess FiO2 Sodium Potassium Chloride Carbon Dioxide Anion Gap BUN Creatinine Est GFR ( Amer) Est GFR (Non-Af Amer) Glucose Lactic Acid Calcium Total Bilirubin AST ALT Alkaline Phosphatase Ammonia Total Protein Albumin Triglycerides Cholesterol LDL Cholesterol Direct VLDL Cholesterol HDL Cholesterol TSH Free T4 Free T3 pg/mL Urine Color Urine Appearance Urine pH Ur Specific [place] Urine Protein Urine Glucose (UA) Urine Ketones Urine Blood Urine Nitrite Ur Leukocyte Esterase Urine WBC (Auto) Fluid Tube Number 1 4 CSF Volume 4.0 4.0 CSF Appearance CLEAR CLEAR CSF Color COLORLESS COLORLESS CSF WBC 4 3 CSF RBC 1023 H 1 CSF Glucose 357 H CSF Total Protein 95 H 05/28/19 05/29/19 05/29/19 20:02 06:10 06:55 WBC 18.9 H RBC 4.78 Hgb 13.8 Hct 41.3 MCV 86 D MCH 28.8 MCHC 33.4 RDW 15.0 H Plt Count 389 Seg Neutrophils % 77.9 Lymphocytes % 12.7 L Monocytes % 9.0 Eosinophils % 0.0 Basophils % 0.4 Absolute Neutrophils 14.7 H Absolute Lymphocytes 2.4 Absolute Monocytes 1.7 H Absolute Eosinophils 0.0 Absolute Basophils 0.1 Carbonic Acid 0.95 L HCO3/H2CO3 Ratio 20:1 ABG pH 7.40 ABG pCO2 31.7 L ABG pO2 85.9 ABG HCO3 19.2 L ABG O2 Saturation 96.6 ABG Base Excess -4.5 VBG pH VBG pCO2 VBG HCO3 VBG Base Excess FiO2 ROOM AIR Sodium 148.1 H Potassium 4.3 Chloride 114 H Carbon Dioxide 15 L Anion Gap 19 BUN 26 H Creatinine 1.02 Est GFR ( Amer) > 60 Est GFR (Non-Af Amer) 56 L Glucose 479 H* Lactic Acid Calcium 9.6 Total Bilirubin AST ALT Alkaline Phosphatase Ammonia Total Protein Albumin Triglycerides Cholesterol LDL Cholesterol Direct VLDL Cholesterol HDL Cholesterol TSH Free T4 Free T3 pg/mL Urine Color Urine Appearance Urine pH Ur Specific [place] Urine Protein Urine Glucose (UA) Urine Ketones Urine Blood Urine Nitrite Ur Leukocyte Esterase Urine WBC (Auto) Fluid Tube Number CSF Volume CSF Appearance CSF Color CSF WBC CSF RBC CSF Glucose CSF Total Protein 05/29/19 06:55 WBC RBC Hgb Hct MCV MCH MCHC RDW Plt Count Seg Neutrophils % Lymphocytes % Monocytes % Eosinophils % Basophils % Absolute Neutrophils Absolute Lymphocytes Absolute Monocytes Absolute Eosinophils Absolute Basophils Carbonic Acid HCO3/H2CO3 Ratio ABG pH ABG pCO2 ABG pO2 ABG HCO3 ABG O2 Saturation ABG Base Excess VBG pH VBG pCO2 VBG HCO3 VBG Base Excess FiO2 Sodium 150.4 H Potassium 4.1 Chloride 118 H Carbon Dioxide 17 L Anion Gap 15 BUN 23 H Creatinine 0.86 Est GFR ( Amer) > 60 Est GFR (Non-Af Amer) > 60 Glucose 263 H Lactic Acid Calcium 9.5 Total Bilirubin 0.8 AST 55 H ALT 25 Alkaline Phosphatase 155 H Ammonia Total Protein 7.2 Albumin 4.0 Triglycerides 398 H Cholesterol 435.11 H LDL Cholesterol Direct 263 H VLDL Cholesterol 79.6 H HDL Cholesterol 50 TSH Free T4 Free T3 pg/mL Urine Color Urine Appearance Urine pH Ur Specific [place] Urine Protein Urine Glucose (UA) Urine Ketones Urine Blood Urine Nitrite Ur Leukocyte Esterase Urine WBC (Auto) Fluid Tube Number CSF Volume CSF Appearance CSF Color CSF WBC CSF RBC CSF Glucose CSF Total Protein 05/28/19 05/28/19 05/29/19 14:20 14:20 06:55 Creatine Kinase 414 H 1037 H CK-MB (CK-2) 6.78 H Troponin I 0.130 Impressions: Cervical Spine CT 05/28/19 14:12 IMPRESSION: No fracture or static subluxation of the cervical spine. Multilevel discectomy and fusion from C3 through C7. Head CT 05/28/19 14:12 IMPRESSION: No acute intracranial pathology. EVIDENCE OF ACUTE STROKE: NO. Chest X-Ray 05/28/19 14:13 IMPRESSION: STABLE APPEARANCE OF THE CHEST. SUPPORT DEVICES UNCHANGED. Assessment and Plan - Diagnosis (1) Acute metabolic encephalopathy Is this a current diagnosis for this admission?: Yes Plan: Hyperglycemia, acute kidney injury metabolic acidosis could explain her altered mental status. LP requested to rule out meningitis. Until meningitis is ruled out patient is on Rocephin and vancomycin. 05/29/2019-patient admitted with altered mental status multiple reasons one is hyperglycemia with blood sugar than 1 6 that once 90 with metabolic acidosis, LP was abnormal waiting for the reports. And she is also has a recent history of pontine infarct CT head was negative at this time MRI of the brain is pending. CT of the head was also requested. 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 ABG done this morning pH is 7.4 bicarb of 32. (3) Rhabdomyolysis Qualifiers: Encounter type: initial encounter Is this a current diagnosis for this admission?: Yes Plan: Will be corrected with hydration. 05/29/2019-patient has rhabdomyolysis with CPK of thousand causes unknown at this point. May be history of fall we do not know. (4) Leukocytosis Is this a current diagnosis for this admission?: Yes Plan: We will monitor her CBC. 05/29/2019-patient admitted with elevated leukocytosis LP was abnormal waiting for the Gram stain and cell count presently on vancomycin and Zosyn started on IV acyclovir. ID consult was requested. Patient is going to be on droplet isolation. (5) Acute kidney injury Is this a current diagnosis for this admission?: Yes Plan: Creatinine of 1.26. Patient has been started on normal saline at rate of 200 mm/h which will correct the acute kidney injury. 05/29/2019-patient creatinine today is 0.86 at the time of admission 1.26 [place] most likely due to poor oral intake resolving. - Time Time Spent with patient: 25-34 minutes Anticipated discharge: Home
[2019-05-29] MEDS: HYDRALAZINE HCL INJ/PF 20 MG/1 ML SDV IV PRN ×3 (10:54→22:22)
[2019-05-29] MEDS ORDERED: INSULIN REG, HUMAN 100 UNIT/ML 3 ML VIAL (PYX) SUBCUT SCH (11:00)
[2019-05-29] MEDS ORDERED: DIAZEPAM INJ 10 MG/2 ML DISP.SYRIN IV ONE ×2 (11:00→14:45)
[2019-05-29] MEDS: CHLORPROMAZINE HCL INJ 25 MG/1 ML AMPULE IV SCH ×2 (11:36→17:34)
[2019-05-29] MEDS ORDERED: ACYCLOVIR SODIUM 700 MG in NORMAL SALINE 100 ML IV SCH (12:00)
[2019-05-29] MEDS ORDERED: DEXAMETHASONE 4 MG TABLET PO SCH (12:00)
--- NOTE | 2019-05-29 12:42 | RADIOLOGY REPORT (SQ) ---
EXAM DESCRIPTION: CHEST SINGLE VIEW COMPLETED DATE/TIME: 05/29/2019 12:28 pm REASON FOR STUDY: Central line placement COMPARISON: None. EXAM PARAMETERS: NUMBER OF VIEWS: One view. TECHNIQUE: Single frontal radiographic view of the chest acquired. RADIATION DOSE: NA LIMITATIONS: None. FINDINGS: LUNGS AND PLEURA: No opacities, masses or pneumothorax. No pleural effusion. MEDIASTINUM AND HILAR STRUCTURES: No masses. Contour normal. HEART AND VASCULAR STRUCTURES: Heart normal in size. Normal vasculature. BONES: No acute findings. HARDWARE: None in the chest. OTHER: Right IJ central line tip overlying right atrium. IMPRESSION: Central line placement. No pneumothorax. TECHNICAL DOCUMENTATION: JOB ID: [id number] [email or web address]- All Rights Reserved Reading location - IP/workstation name: [email or web address]
[2019-05-29] MEDS: DEXAMETHASONE SOD PHOSPHATE INJ 4 MG/1 ML VIAL IV SCH ×2 (12:47→17:35)
[2019-05-29] MEDS ORDERED: NORMAL SALINE INJ/PF 0.9% 10 ML SDV IV PRN (13:01)
--- NOTE | 2019-05-29 13:12 | RADIOLOGY REPORT (SQ) ---
EXAM DESCRIPTION: NON-TUNNEL CV CATH COMPLETED DATE/TIME: 05/29/2019 12:41 pm REASON FOR STUDY: NEED FOR VASCULAR ACCESS COMPARISON: None. TECHNIQUE: Ultrasound image from vascular access. LIMITATIONS: None. FINDINGS: None. IMPRESSION: Ultrasound guidance for vascular access. TECHNICAL DOCUMENTATION: JOB ID: [id number] [employer]- All Rights Reserved Reading location - IP/workstation name: [email or web address]
--- NOTE | 2019-05-29 13:56 | Operative Report ---
Operative Report DATE OF SURGERY: 05/29/19 PREOPERATIVE DIAGNOSIS: Respiratory failure; pharmacologic intoxication POSTOPERATIVE DIAGNOSIS: Same OPERATION: 1. Focused ultrasound of the right neck. 2. Ultrasound directed insertion of triple-lumen right internal jugular vein. 3. Interpretation of the portable upright chest x-ray SURGEON: VANE FIGUEROA ANESTHESIA: Local TISSUE REMOVED OR ALTERED: none COMPLICATIONS: none ESTIMATED BLOOD LOSS: scant INTRAOPERATIVE FINDINGS: See below PROCEDURE: Informed consent was obtained. The patient was placed in Trendelenburg the right neck and chest wall were exposed, and prepped and draped in a sterile fashion. Surgical plan and surgica l timeout discussed. The right neck was anesthetized with 1% lidocaine without epinephrine. Using the variable frequency linear transducer, real time, a 18-gauge needle and wire were threaded into the right internal jugular vein. The tract was dilated up, the dilator removed, and the triple-lumen central venous access catheter was threaded into the right internal jugular vein uneventfully to the hub. There was excellent aspiration and flush of saline through all 3 lumens. The catheter was affixed to the skin with a Biopatch and 2-0 silk suture; sterile dressing applied. The patient tolerated the procedure well. There were no complications. Portable upright chest x-ray demonstrated tip of the catheter in appropriate position with no pneumothorax. Results shared with nursing staff.
[2019-05-29] MEDS ORDERED: CHLORPROMAZINE HCL INJ 25 MG/1 ML AMPULE IV SCH (14:00)
[2019-05-29] MEDS: DIAZEPAM INJ 10 MG/2 ML DISP.SYRIN IV PRN ×2 (15:24→22:19)
--- NOTE | 2019-05-29 15:35 | RADIOLOGY REPORT (SQ) ---
EXAM DESCRIPTION: MRI HEAD WITHOUT COMPLETED DATE/TIME: 05/29/2019 3:17 pm REASON FOR STUDY: stroke COMPARISON: None. TECHNIQUE: Multiplanar imaging includes non-contrasted T1, T2, FLAIR, and diffusion with ADC map seq uences. Images stored on PACS. LIMITATIONS: Patient movement. FINDINGS: ANATOMY: No anomalies. Normal vascular flow voids. Pituitary fossa normal. CSF SPACES: Normal in size and contour. No hemorrhage. CEREBRUM: Sulci and gyri normal in size and contour. Normal white matter signal on FLAIR imaging. No evidence of hemorrhage, mass, or extraaxial fluid collection. POSTERIOR FOSSA: No signal alteration. No hemorrhage. No edema, masses or mass effect. Internal nba tory canals, cerebello-pontine angles, mastoids normal. DIFFUSION IMAGING: Negative for acute or sub-acute infarction. ORBITS: No masses. Globes normal. PARANASAL SINUSES: No fluid levels. Mucosa normal. OTHER: No other significant finding. IMPRESSION: Normal but limited due to motion. Recommend repeat when the patient is more stable. EVIDENCE OF ACUTE STROKE: NO. TECHNICAL DOCUMENTATION: JOB ID: [id number] [email or web address]- All Rights Reserved Reading location - IP/workstation name: [email or web address]
--- NOTE | 2019-05-29 16:10 | RADIOLOGY REPORT (SQ) ---
EXAM DESCRIPTION: CTA HEAD COMPLETED DATE/TIME: 05/29/2019 3:48 pm REASON FOR STUDY: cva COMPARISON: None. TECHNIQUE: Post IV contrast scanning, thin section axial imaging through the brain to evaluate the a rterial structures. Source and MIP images are saved and reviewed on PACS. Advanced 3D imaging as volume-rendering, MIPs, SSD performed? yes All CT scanners at this facility use dose modulation, iterative reconstruction, and/or weight based d osing when appropriate to reduce radiation dose to as low as reasonably achievable (ALARA). [facility]: Dose Right [facility]: CareDose [facility]: Dose Right [facility]: Teradose 4D [facility]: Smart Techpacker CONTRAST TYPE AND DOSE: See separate report of the same date. RENAL FUNCTION: See separate report of the same date. LIMITATIONS: None. FINDINGS: [place] OF SANDERS: The anterior, middle, posterior cerebral arteries are all patent. No ev idence of aneurysm or focal stenosis. POSTERIOR CIRCULATION: The distal vertebral arteries are patent as is the basilar artery. No aneurysm . BRAIN: No abnormal enhancement. BONES: Intact as visualized. SINUSES: No fluid or mucosal thickening. OTHER: No other significant finding. IMPRESSION: NO CTA EVIDENCE OF STENOSIS OR ANEURYSM OF THE [place] OF SANDERS. TECHNICAL DOCUMENTATION: JOB ID: [id number] Quality ID # [id number]: Final reports with documentation of one or more dose reduction techniques (e.g., Au tomated exposure control, adjustment of the mA and/or kV according to patient size, use of iterative reconstruction technique) 2010 [employer]- All Rights Reserved Reading location - IP/workstation name: [email or web address]
--- NOTE | 2019-05-29 16:14 | RADIOLOGY REPORT (SQ) ---
EXAM DESCRIPTION: CTA NECK COMPLETED DATE/TIME: 05/29/2019 3:48 pm REASON FOR STUDY: stroke COMPARISON: None. TECHNIQUE: Axial dynamic scanning technique with dynamic contrast enhancement through the extra-aircraft powertrain repairer nial carotid and vertebral arteries. Multiplanar reconstruction. 3-D MIPS and Volume-rendered imag es acquired at the workstation and saved to PACS. Images are reviewed in soft tissue, bone, lung w indows. All CT scanners at this facility use dose modulation, iterative reconstruction, and/or weight based d osing when appropriate to reduce radiation dose to as low as reasonably achievable (ALARA). [facility]: Dose Right [facility]: CareDose [facility]: Dose Right [facility]: Teradose 4D [facility]: Nubimetrics CONTRAST TYPE AND DOSE: contrast/concentration: Isovue 350.00 mg/ml; Total Contrast Delivered: 80.0 ml; Total Saline Delivered: 75.0 ml RENAL FUNCTION: GFR > 60. LIMITATIONS: None. FINDINGS: AORTIC ARCH: Normal three-vessel origin. Bilateral subclavian arteries are patent. No d issection. RIGHT CAROTIDS: 70- 80% stenosis of the proximal ICA. RIGHT VERTEBRAL: Patent. No dissection. LEFT CAROTIDS: No significant stenosis. LEFT VERTEBRAL: Patent. No dissection. OTHER: No other significant finding. OTHER: 3-D reconstructions confirm findings. 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 COMMENT: Quality ID #[id number]: Measurements of distal internal carotid diameter were used as the denomina tor for stenosis measurement. TECHNICAL DOCUMENTATION: JOB ID: [id number] Quality ID # 436: Final reports with documentation of one or more dose reduction techniques (e.g., Au tomated exposure control, adjustment of the mA and/or kV according to patient size, use of iterative reconstruction technique) 2010 [employer]- All Rights Reserved Reading location - IP/workstation name: [email or web address]
[2019-05-29] MEDS: ENOXAPARIN SODIUM INJ 40 MG/0.4 ML DISP.SYRIN SUBCUT SCH (17:16)
[2019-05-29] MEDS: INSULIN REG, HUMAN 100 UNIT/ML 3 ML VIAL (PYX) SUBCUT SCH (17:34)
[2019-05-29] MEDS: VANCOMYCIN HCL 750 MG in DEXTROSE 5%-WATER 250 ML IV SCH (17:35)
[2019-05-29] MEDS: METOPROLOL TARTRATE PF/INJ 5 MG/5 ML SDV IV PRN (17:39)
--- NOTE | 2019-05-29 17:49 | Progress Note ---
Provider Note Provider Note: ID Consult Note Asked to review patient's chart. Pt not seen or examined. Ms. Suarez is a 54 year old diabetic lady who was brougth to the ED on 05/28/19 after being found by her neighbor under her bed after not being seen for a day. She was noted to have pinpoint pupils by EMS and was combative. In the ED she was noted to have coffee ground emesis around mouth, face and chest, periorbital discoloration, pinpoint pupils minimally reactive to light, clear lungs, regular heart rate with no murmurs, unremarkable abdomen, and the appearance of johnson to her upper back with ruptured blisters and surrounding erythema. She had a GCS of 8. Initial labs showed leukocytosis, hemoconcentration, anion gap, acidosis, lactate 3.3, glucose nearly 700, elevated CPK. LP was performed which yielded clear colorless CSF with no CSF pleocytosis. CSF glucose was 357 and total protein 95. CT head did not show acute infarct. MRI of the brain today did not show any abnormalities but was limited due to patient motion. Blood cultures are negative x 1 day. CSF gram stain showed no organisms. CSF culture is negative x 1 day. Urine culture is negative. Impression/Recommendations ID input was requested regarding CSF profile. It is not consistent with meningitis. - Pt was hyperglycemic when she presented, and the high CSF glucose reflects this. The CSF glucose is not low or lower than expected to suggest that inflammation is impairing glucose transport into the CSF as can occur with bacterial, fungal or mycobacterial meningitis. She has no CSF pleocytosis either. Her CSF WBC count is normal. The CSF protein is elevated but not specific. Viral processes do not cause as much inflammation in the CSF but would still be likely to cause some elevation in WBC count, which is not seen here. - Pt does not need to continue empiric antibiotics for bacterial meningitis or droplet precautions for possible meningococcal meningitis. De-escalate or discontinue if no other infection identified (e.g. BCx negative x 48h, no pneumonia on CXR has been seen, no cellulitis). - The best test for HSV encephalitis is HSV PCR of CSF. HSV encephalitis is accompanied by CSF pleocytosis in the majority of cases (90% or more), which is absent here, and accompanied by MRI abnormalities in the majority of cases (around 90%), again absent here. If she has skin lesions that are consistent with shingles, acyclovir can be continued. If high suspicion, then send HSV PCR and continue IV acyclovir until result is negative. Otherwise, consider stopping acyclovir. What is available presently in her chart does not strongly suggest HSV encephalitis. - Causes of fever are manifold with noninfectious causes including rhabdomyolysis, GI bleed, and some toxidromes or withdrawal syndromes. If there is no infection identified over the next few days with continued evaluation and monitoring, discontinuing antibiotics would be appropriate. Mike Chapa MD [facility] Infectious Diseases pager [phone]
[2019-05-29] MEDS ORDERED: INSULIN GLARGINE,HUM.REC.ANLOG 1,000 UNIT/10 ML VIAL SUBCUT SCH (22:00)
[2019-05-29] MEDS: ATORVASTATIN CALCIUM 10 MG TABLET PO SCH (22:22)
[2019-05-29] MEDS: QUETIAPINE FUMARATE 100 MG TABLET PO SCH (22:22)
[2019-05-30] MEDS: DEXAMETHASONE SOD PHOSPHATE INJ 4 MG/1 ML VIAL IV SCH ×4 (01:25→17:16)
[2019-05-30] MEDS: LORAZEPAM INJ 2 MG/1 ML VIAL IV PRN ×3 (01:25→23:09)
[2019-05-30] MEDS: METOPROLOL TARTRATE PF/INJ 5 MG/5 ML SDV IV PRN ×2 (01:25→14:20)
[2019-05-30] MEDS: INSULIN REG, HUMAN 100 UNIT/ML 3 ML VIAL (PYX) SUBCUT SCH ×4 (01:26→17:26)
[2019-05-30] MEDS: CHLORPROMAZINE HCL INJ 25 MG/1 ML AMPULE IV SCH ×3 (01:26→17:16)
[2019-05-30] MEDS: VANCOMYCIN HCL 750 MG in DEXTROSE 5%-WATER 250 ML IV SCH (05:27)
[2019-05-30] MEDS: CEFTRIAXONE 2 GM/D5W RTU 2 GM/50 ML RTUPB IV SCH (05:28)
[2019-05-30 05:51] LABS: ABSOLUTE BASOPHILS # (AUTO) 0.2 10^3/uL (0.0-0.2); ABSOLUTE LYMPHOCYTES (AUTO) 1.5 10^3/uL (0.5-4.7); ABSOLUTE NEUT (AUTO) 12.6 10^3/uL (1.7-8.2); BASOPHILS % (AUTO) 1.1 % (0-2); HEMATOCRIT 38.2 % (36.0-47.0); HEMOGLOBIN 12.7 g/dL (12.0-15.5); LYMPHOCYTES % (AUTO) 9.5 % (13-45); MEAN CORPUSCULAR HEMOGLOBIN 28.9 pg (27.0-33.4); MEAN CORPUSCULAR HGB CONC 33.3 g/dL (32.0-36.0); MEAN CORPUSCULAR VOLUME 87 fl (80-97); MONOCYTES % (AUTO) 6.5 % (3-13); PLATELET COUNT 291 10^3/uL (150-450); RED BLOOD COUNT 4.39 10^6/uL (3.72-5.28); RED CELL DISTRIBUTION WIDTH 15.8 % (11.5-14.0); SEGMENTED NEUTROPHILS % (AUTO) 82.9 % (42-78); TOTAL CELLS COUNTED % (AUTO) 100 %; WHITE BLOOD COUNT 15.2 10^3/uL (4.0-10.5)
[2019-05-30] MEDS ORDERED: LEVOTHYROXINE SODIUM 0.1 MG TABLET PO SCH (06:00)
[2019-05-30] MEDS: HYDRALAZINE HCL INJ/PF 20 MG/1 ML SDV IV PRN ×5 (06:13→23:09)
[2019-05-30 06:29] LABS: ALANINE AMINOTRANSFERASE 23 U/L (9-52); ALBUMIN 3.4 g/dL (3.5-5.0); ALKALINE PHOSPHATASE 124 U/L (38-126); ANION GAP 9 (5-19); ASPARTATE AMINO TRANSFERASE 36 U/L (14-36); BILIRUBIN,DIRECT 0.4 mg/dL (0.0-0.4); BILIRUBIN,TOTAL 0.5 mg/dL (0.2-1.3); BLOOD UREA NITROGEN 30 mg/dL (7-20); CALCIUM 9.2 mg/dL (8.4-10.2); CARBON DIOXIDE 25 mmol/L (22-30); CHLORIDE 118 mmol/L (98-107); GLUCOSE 265 mg/dL (75-110); TOTAL PROTEIN 6.3 g/dL (6.3-8.2)
[2019-05-30 06:30] LABS: POTASSIUM 3.9 mmol/L (3.6-5.0)
[2019-05-30] MEDS: 1/2 NORMAL SALINE 1,000 ML IV PRN ×2 (08:44→19:20)
[2019-05-30] MEDS ORDERED: LABETALOL HCL INJ 20 MG/4 ML DISP.SYRIN IV PRN (09:48)
--- NOTE | 2019-05-30 09:55 | PDOC PROGRESS REPORT ---
Subjective Progress Note for:: 05/30/19 Subjective:: 54 year old female patient brought by EMS for altered mental status. Since patient is mentally altered and sedated she is not source of history. Brief history is obtained orally from the ER attending and reviewing available charts. Per ER attending note patient arrives via EMS was found by neighbor under her bed. Patient initially was unresponsive but later patient become agitated and combative. She was given by EMS to milligram of IV Ativan. Upon arrival mykel morejon was found to be on 5 L oxygen via nasal cannula and she saturates 97%. Her initial blood work shows mild hyponatremia with sodium of 145.3 market hyperglycemia with blood glucose level of 680, creatinine of 1.26 and mild rhabdomyolysis. Her CT head spine and MRI of the brain are negative for acute process. With unresponsiveness and leukocytosis the possibility of meningitis entertained and LP requested. Further detailed history and review of systems unobtainable. 05/29/[id number]-lczq-old female admitted with altered mental status unable to get proper history. CT head was negative. Blood sugars are 619 at the time of admission they came around around 250 insulin drip was discontinued she is on sliding scale. Plan to do the MRI of the brain without contrast today and a CT of the neck today and consultation with ID was requested after the LP shows WBC of 4 and high glucose and high blood type protein. Waiting for the cell count and Gram stain. Presently on IV vancomycin and Zosyn and acyclovir is going to be added IV. Examination patient is moaning and moving all her upper and lower extremities pupils are very much dilated but not responding to the verbal commands not responding well to the painful stimuli. 05/30/[id number]-uagx-old female admitted with altered mental status most likely medication induced. MRI of the head was negative for acute pathology CTA of the neck and head indicates 60 to 80% blockage in the right proximal carotid artery. Patient is more alert more awake compared to yesterday. Still not unable to take any medications by mouth. She is off the fluids since yesterday sodium went up to 152 urinary output is decreased. Blood pressure still high because of the agitation systolic blood pressure is more than 200. Started on half- normal saline at 100 cc/h to closely monitor the blood pressure. She is on IV hydralazine 10 mg every 4 PRN for systolic blood pressure more than 150 and IV labetalol 100 mg added to the medication to control the blood pressures. Reason For Visit: ACUTE METABOLIC ENCEPHALOPATHY. DKA Physical Exam Vital Signs: Temp Pulse Resp BP Pulse Ox 98.4 F 106 H 19 189/91 H 95 05/30/19 07:45 05/30/19 07:45 05/30/19 07:45 05/30/19 07:45 05/30/19 07:45 Intake & Output 05/29/19 05/30/19 05/31/19 06:59 06:59 06:59 Intake Total 4119 464 Output Total 850 2180 200 Balance 9429 -5246 -200 Weight 58.8 kg 56.7 kg General appearance: PRESENT: no acute distress, thin Head exam: PRESENT: atraumatic Eye exam: PRESENT: PERRLA Mouth exam: PRESENT: moist, tongue midline Teeth exam: PRESENT: poor dentation Neck exam: ABSENT: carotid bruit, JVD, lymphadenopathy, thyromegaly Respiratory exam: PRESENT: clear to auscultation jaqueline. ABSENT: rales, rhonchi, wheezes Cardiovascular exam: PRESENT: RRR. ABSENT: diastolic murmur, rubs, systolic murmur GI/Abdominal exam: PRESENT: normal bowel sounds, soft. ABSENT: distended, guarding, mass, organolmegaly, rebound, tenderness Rectal exam: PRESENT: deferred Gentrourinary exam: PRESENT: indwelling catheter Neurological exam: PRESENT: altered Psychiatric exam: PRESENT: agitated Skin exam: PRESENT: other - has skin abrasion like a pressure wounds on the back. Probably stage I. We are going to put the Bactroban cream and try to change the body position every 2 hours. Results Laboratory Results: 05/30/19 05:35 05/30/19 05:35 05/30/19 05/30/19 05:35 05:35 WBC 15.2 H RBC 4.39 Hgb 12.7 Hct 38.2 MCV 87 MCH 28.9 MCHC 33.3 RDW 15.8 H Plt Count 291 Seg Neutrophils % 82.9 H Lymphocytes % 9.5 L Monocytes % 6.5 Eosinophils % 0.0 Basophils % 1.1 Absolute Neutrophils 12.6 H Absolute Lymphocytes 1.5 Absolute Monocytes 1.0 Absolute Eosinophils 0.0 Absolute Basophils 0.2 Sodium 152.4 H Potassium 3.9 Chloride 118 H Carbon Dioxide 25 Anion Gap 9 BUN 30 H Creatinine 0.96 Est GFR ( Amer) > 60 Est GFR (Non-Af Amer) > 60 Glucose 265 H Calcium 9.2 Magnesium 2.2 Total Bilirubin 0.5 AST 36 ALT 23 Alkaline Phosphatase 124 Total Protein 6.3 Albumin 3.4 L 05/28/19 05/28/19 05/29/19 14:20 14:20 06:55 Creatine Kinase 414 H 1037 H CK-MB (CK-2) 6.78 H Troponin I 0.130 05/29/19 11:15 Creatine Kinase 1312 H CK-MB (CK-2) Troponin I Impressions: Cervical Spine CT 05/28/19 14:12 IMPRESSION: No fracture or static subluxation of the cervical spine. Multilevel discectomy and fusion from C3 through C7. Head CT 05/28/19 14:12 IMPRESSION: No acute intracranial pathology. EVIDENCE OF ACUTE STROKE: NO. Head CTA 05/29/19 00:00 IMPRESSION: NO CTA EVIDENCE OF STENOSIS OR ANEURYSM OF THE [place] OF SANDERS. Interventional Vascular Procedure 05/29/19 00:00 IMPRESSION: Ultrasound guidance for vascular access. Neck CTA 05/29/19 00:00 IMPRESSION: 70- 80% stenosis of the proximal right ICA. Chest X-Ray 05/29/19 12:07 IMPRESSION: Central line placement. No pneumothorax. Head MRI 05/29/19 15:17 IMPRESSION: Normal but limited due to motion. Recommend repeat when the patient is more stable. EVIDENCE OF ACUTE STROKE: NO. Assessment and Plan - Diagnosis (1) Acute metabolic encephalopathy Is this a current diagnosis for this admission?: Yes Plan: Hyperglycemia, acute kidney injury metabolic acidosis could explain her altered mental status. LP requested to rule out meningitis. Until meningitis is ruled out patient is on Rocephin and vancomycin. 05/29/2019-patient admitted with altered mental status multiple reasons one is hyperglycemia with blood sugar than 1 6 that once 90 with metabolic acidosis, LP was abnormal waiting for the reports. And she is also has a recent history of pontine infarct CT head was negative at this time MRI of the brain is pending. CT of the head was also requested. 05/30/2019-patient admitted with altered mental status LP was negative as per ID recommendations antibiotics and acyclovir are discontinued. Previous history of strokes. Altered mental status may be secondary to hyperglycemia and medication overdose. Psych consult is going to be requested. Patient is more alert more awake today MRI of the head was negative CT of the neck shows 60 to 80% of the blockage in the right proximal carotid artery. (2) DKA, type 2 Qualifiers: Diabetes mellitus shelter insulin use: with shelter use Diabetes mellitus complication detail: with coma Qualified Code(s): E11.11 - Type 2 diabetes mellitus with ketoacidosis with coma; Z79.4 - intermediate frame tender (current) use of insulin Is this a current diagnosis for this admission?: No Plan: 05/29/2019-patient came in the blood sugars of more than 690 with metabolic acidosis blood sugars are improving metabolic acidosis is resolving. ABG done this morning pH is 7.4 bicarb of 32. 05/30/2019-patient blood sugar is 265 on insulin sliding scale every 6 hours. Plan is to continue the present management. We are going to request for speech to clear to feed. (3) Rhabdomyolysis Qualifiers: Encounter type: initial encounter Is this a current diagnosis for this admission?: Yes Plan: Will be corrected with hydration. 05/29/2019-patient has rhabdomyolysis with CPK of thousand causes unknown at this point. May be history of fall we do not know. 05/30/2019-patient came in with elevated CK levels most likely secondary to muscle damage. She is on IV fluids. (4) Leukocytosis Is this a current diagnosis for this admission?: Yes Plan: We will monitor her CBC. 05/29/2019-patient admitted with elevated leukocytosis LP was abnormal waiting for the Gram stain and cell count presently on vancomycin and Zosyn started on IV acyclovir. ID consult was requested. Patient is going to be on droplet isolation. 05/30/2019-patient WBC count is 15,200 improving. Blood cultures are negative. Urine cultures are negative. LP was negative. Antibiotics are discontinued. (5) Acute kidney injury Is this a current diagnosis for this admission?: Yes Plan: Creatinine of 1.26. Patient has been started on normal saline at rate of 200 mm/h which will correct the acute kidney injury. 05/29/2019-patient creatinine today is 0.86 at the time of admission 1.26 ELFEGO most likely due to poor oral intake resolving. 05/30/2019-patient creatinine is 0.96 on admission is 1.26 ELFEGO most likely secondary to poor oral intake. - Time Time Spent with patient: 25-34 minutes Medications reviewed and adjusted accordingly: Yes Anticipated discharge: SNF
[2019-05-30] MEDS ORDERED: ACYCLOVIR SODIUM INJ/PF 500 MG/10 ML SDV IV SCH (10:00)
[2019-05-30] MEDS: INSULIN GLARGINE,HUM.REC.ANLOG 1,000 UNIT/10 ML VIAL SUBCUT SCH ×2 (10:32→22:02)
[2019-05-30] MEDS: PANTOPRAZOLE SODIUM 40 MG VIAL IV SCH (10:33)
[2019-05-30] MEDS: LEVOTHYROXINE SODIUM INJ/PF 0.1 MG SDV IV SCH (10:39)
[2019-05-30] MEDS: MUPIROCIN CALCIUM 2% CREAM 15 GM TP SCH ×2 (10:44→17:16)
[2019-05-30] MEDS: LISINOPRIL 10 MG TABLET PO SCH (10:46)
[2019-05-30] MEDS: AMLODIPINE BESYLATE 10 MG TABLET PO SCH (10:46)
--- NOTE | 2019-05-30 12:35 | RADIOLOGY REPORT (SQ) ---
EXAM DESCRIPTION: CHEST SINGLE VIEW COMPLETED DATE/TIME: 05/30/2019 12:24 pm REASON FOR STUDY: shortness of breath COMPARISON: 05/29/2019 NUMBER OF VIEWS: One view. TECHNIQUE: Single frontal radiographic image of the chest acquired. LIMITATIONS: None. FINDINGS: LUNGS AND PLEURA: No evidence of pulmonary edema or pneumonia. No pneumothorax. MEDIASTINUM AND HEART: Stable heart size and mediastinal structures. SUPPORT DEVICES: Appropriate location without change. BONY STRUCTURES: No acute findings. HARDWARE: None. OTHER: No other significant finding. IMPRESSION: No acute findings in the chest. Reading location - IP/workstation name: [email or web address]
[2019-05-30] MEDS: ENOXAPARIN SODIUM INJ 40 MG/0.4 ML DISP.SYRIN SUBCUT SCH (17:19)
[2019-05-30 20:56] LABS: ARTERIAL BLOOD BASE EXCESS -0.6 mmol/L; ARTERIAL BLOOD FIO2 5LPM; ARTERIAL BLOOD H2CO3 0.91 mmol/L (1.05-1.35); ARTERIAL BLOOD HCO3 21.9 mmol/L (20-24); ARTERIAL BLOOD O2 SATURATION 89.4 % (94-98); ARTERIAL BLOOD PCO2 30.3 mmHg (35-45); ARTERIAL BLOOD PH 7.48 (7.35-7.45); ARTERIAL BLOOD PO2 51.6 mmHg (80-100); ARTERIAL BLOOD TOTAL CO2 22.8 mmol/L (21-25)
[2019-05-30] MEDS: ATORVASTATIN CALCIUM 10 MG TABLET PO SCH (22:04)
[2019-05-30] MEDS: QUETIAPINE FUMARATE 100 MG TABLET PO SCH (22:04)
[2019-05-31] MEDS ORDERED: MORPHINE SULFATE 10 MG/ML INJ ONE (00:08)
[2019-05-31] MEDS ORDERED: PROPOFOL 1,000 MG/100 ML INFUS..BTL IV ONE (00:09)
[2019-05-31] MEDS: INSULIN REG, HUMAN 100 UNIT/ML 3 ML VIAL (PYX) SUBCUT SCH ×4 (00:10→17:49)
[2019-05-31] MEDS: METOPROLOL TARTRATE PF/INJ 5 MG/5 ML SDV IV PRN (00:12)
--- NOTE | 2019-05-31 01:17 | RADIOLOGY REPORT (SQ) ---
EXAM DESCRIPTION: XR CHEST 1 VIEW COMPLETED DATE/TME: 05/31/2019 00:00 CLINICAL HISTORY: 54 years, Female, ETT placement/NG Tube placement COMPARISON: 05/28/2019 chest NUMBER OF VIEWS: 1 TECHNIQUE: Portable chest LIMITATIONS: None. FINDINGS: Heart size is normal. Enteric tube with the tip in the upper abdomen likely in the body of the stomach. Endotracheal tube with the tip approximately 4.4 cm above the larisa. Central venous catheter with the tip in the right atrium. No pneumothorax. Osteopenia. Lungs are clear IMPRESSION: Lines and catheters in place. Lungs are clear copyright 2010 [employer]- All Rights Reserved
[2019-05-31 01:55] LABS: ARTERIAL BLOOD BASE EXCESS 0.4 mmol/L; ARTERIAL BLOOD FIO2 40%; ARTERIAL BLOOD H2CO3 1.05 mmol/L (1.05-1.35); ARTERIAL BLOOD HCO3 23.9 mmol/L (20-24); ARTERIAL BLOOD O2 SATURATION 97.1 % (94-98); ARTERIAL BLOOD PCO2 34.8 mmHg (35-45); ARTERIAL BLOOD PH 7.46 (7.35-7.45); ARTERIAL BLOOD PO2 87.1 mmHg (80-100)
[2019-05-31] MEDS ORDERED: MORPHINE SULFATE 10 MG/ML INJ IV ONE (02:00)
[2019-05-31] MEDS: CHLORPROMAZINE HCL INJ 25 MG/1 ML AMPULE IV SCH ×2 (02:50→09:39)
[2019-05-31] MEDS: PROPOFOL 1,000 MG/100 ML INFUS..BTL IV PRN ×3 (05:34→21:48)
[2019-05-31] MEDS ORDERED: MIDAZOLAM HCL 50 MG/100 ML RTUINJ IV PRN (06:01)
--- NOTE | 2019-05-31 06:15 | Progress Note ---
Provider Note Provider Note: Critical care note: Onset of critical care: 23:54 05/30/2019 Critical care problem: Worsening respiratory status. Patient had significant degradation in her respiratory status over the course of 2-3 hours prior to the onset of the critical care interval. She was being observed by myself and her ICU nurse closely over this period of time. She was noted to have progressively decreasing oxygen saturations and progressively increasing work of breathing. Use of BiPAP was attempted prior to the initiation of critical care status. Patient initially responded minimally to BiPAP and then continued to have worsening of her symptomology. On exam she was noted to have minimal air movement with a markedly prolonged expiratory phase in all wing. She was also noted to have very high pitched minimally audible end expiratory wheezes consistent with severe bronchoconstriction and little or no air movement in her chest. Patient was noted to have supraclavicular, infraclavicular, intercostal and subcostal retractions and in addition to being very tachypneic was noted to have markedly severe work of breathing. She was subsequently intubated and placed on mechanical ventilation. Patient's initial settings were FiO2 40%, tidal volume 450 mL, respiratory rate 16 breaths/min, pressure support of 10 and PEEP of 5. ABGs were done after an appropriate interval and showed a pH of 7.46 PCO2 of 34.8 and a PO2 of 87.1. Patient appeared to be doing much better clinically after intubation and mechanical vent ilation with significantly improved perfusion of her extremities. End of critical care: 00:38 05/31/2019 Total critical care time: 44 minutes
[2019-05-31 06:28] LABS: ABSOLUTE BASOPHILS # (AUTO) 0.1 10^3/uL (0.0-0.2); ABSOLUTE LYMPHOCYTES (AUTO) 2.3 10^3/uL (0.5-4.7); ABSOLUTE MONOCYTES (AUTO) 0.8 10^3/uL (0.1-1.4); ABSOLUTE NEUT (AUTO) 9.8 10^3/uL (1.7-8.2); BASOPHILS % (AUTO) 0.7 % (0-2); HEMATOCRIT 35.4 % (36.0-47.0); HEMOGLOBIN 11.5 g/dL (12.0-15.5); LYMPHOCYTES % (AUTO) 17.9 % (13-45); MEAN CORPUSCULAR HEMOGLOBIN 28.5 pg (27.0-33.4); MEAN CORPUSCULAR HGB CONC 32.5 g/dL (32.0-36.0); MEAN CORPUSCULAR VOLUME 88 fl (80-97); MONOCYTES % (AUTO) 5.9 % (3-13); PLATELET COUNT 241 10^3/uL (150-450); RED BLOOD COUNT 4.04 10^6/uL (3.72-5.28); RED CELL DISTRIBUTION WIDTH 15.5 % (11.5-14.0); SEGMENTED NEUTROPHILS % (AUTO) 75.5 % (42-78); TOTAL CELLS COUNTED % (AUTO) 100 %; WHITE BLOOD COUNT 12.9 10^3/uL (4.0-10.5)
[2019-05-31 06:54] LABS: ALANINE AMINOTRANSFERASE 31 U/L (9-52); ALKALINE PHOSPHATASE 105 U/L (38-126); ASPARTATE AMINO TRANSFERASE 25 U/L (14-36); BILIRUBIN,DIRECT 0.4 mg/dL (0.0-0.4); BILIRUBIN,TOTAL 0.6 mg/dL (0.2-1.3); BLOOD UREA NITROGEN 31 mg/dL (7-20); CALCIUM 8.8 mg/dL (8.4-10.2); GLUCOSE 165 mg/dL (75-110); POTASSIUM 3.2 mmol/L (3.6-5.0); TOTAL PROTEIN 5.6 g/dL (6.3-8.2)
[2019-05-31 06:59] LABS: ANION GAP 5 (5-19); CARBON DIOXIDE 27 mmol/L (22-30); CHLORIDE 113 mmol/L (98-107)
[2019-05-31] MEDS: 1/2 NORMAL SALINE 1,000 ML IV PRN ×2 (07:30→17:51)
[2019-05-31] MEDS: POTASSIUM CHLORIDE 20 MEQ/50 ML RTU IV SCH ×2 (08:04→09:36)
[2019-05-31] MEDS: BUDESONIDE NEB 0.5 MG/2 ML AMPUL NEB SCH ×2 (08:57→20:28)
[2019-05-31] MEDS: IPRATROPIUM BROMIDE 0.02% NEB 0.5 MG/2.5 ML AMPUL NEB SCH ×2 (08:57→16:57)
[2019-05-31] MEDS: LEVALBUTEROL HCL NEB 1.25 MG/3 ML AMPUL NEB SCH ×2 (08:57→16:57)
--- NOTE | 2019-05-31 09:29 | PDOC PROGRESS REPORT ---
Subjective Progress Note for:: 05/31/19 Subjective:: 54 year old female patient brought by EMS for altered mental status. Since patient is mentally altered and sedated she is not source of history. Brief history is obtained orally from the ER attending and reviewing available charts. Per ER attending note patient arrives via EMS was found by neighbor under her bed. Patient initially was unresponsive but later patient become agitated and combative. She was given by EMS to milligram of IV Ativan. Upon arrival mykel morejon was found to be on 5 L oxygen via nasal cannula and she saturates 97%. Her initial blood work shows mild hyponatremia with sodium of 145.3 market hyperglycemia with blood glucose level of 680, creatinine of 1.26 and mild rhabdomyolysis. Her CT head spine and MRI of the brain are negative for acute process. With unresponsiveness and leukocytosis the possibility of meningitis entertained and LP requested. Further detailed history and review of systems unobtainable. 05/29/[id number]-rgwz-old female admitted with altered mental status unable to get proper history. CT head was negative. Blood sugars are 619 at the time of admission they came around around 250 insulin drip was discontinued she is on sliding scale. Plan to do the MRI of the brain without contrast today and a CT of the neck today and consultation with ID was requested after the LP shows WBC of 4 and high glucose and high blood type protein. Waiting for the cell count and Gram stain. Presently on IV vancomycin and Zosyn and acyclovir is going to be added IV. Examination patient is moaning and moving all her upper and lower extremities pupils are very much dilated but not responding to the verbal commands not responding well to the painful stimuli. 05/30/[id number]-qldj-old female admitted with altered mental status most likely medication induced. MRI of the head was negative for acute pathology CTA of the neck and head indicates 60 to 80% blockage in the right proximal carotid artery. Patient is more alert more awake compared to yesterday. Still not unable to take any medications by mouth. She is off the fluids since yesterday sodium went up to 152 urinary output is decreased. Blood pressure still high because of the agitation systolic blood pressure is more than 200. Started on half- normal saline at 100 cc/h to closely monitor the blood pressure. She is on IV hydralazine 10 mg every 4 PRN for systolic blood pressure more than 150 and IV labetalol 100 mg added to the medication to control the blood pressures. 05/31/[id number]-juxx-old female admitted for altered mental status MRI of the brain was negative CTA of the neck shows right-sided coronary artery stenosis 60 to 80%. Last night as per the hospitalist patient went into respiratory distress status post intubation. Post ABG shows PCO2 of 87%. Chest x-ray this morning is normal. Vital signs are stable. Pulse ox is 98% on SIMV with tidal volume of 450. PEEP of 5. Plan is to continue the IV antibiotic therapy continue the IV fluids continue to be on ventilator at least for next 24 hours. To continue the sedation. Reason For Visit: ACUTE METABOLIC ENCEPHALOPATHY. DKA Physical Exam Vital Signs: Temp Pulse Resp BP Pulse Ox 97.5 F 86 16 128/84 H 100 05/31/19 08:00 05/31/19 08:57 05/31/19 08:57 05/31/19 08:00 05/31/19 08:57 Intake & Output 05/30/19 05/31/19 06/01/19 06:59 06:59 06:59 Intake Total 464 2000 4 Output Total 2180 1425 17 Balance -1716 575 -13 Weight 56.7 kg 61.3 kg General appearance: PRESENT: other - And is intubated under sedation. Head exam: PRESENT: atraumatic Eye exam: PRESENT: PERRLA Mouth exam: PRESENT: moist, tongue midline Teeth exam: PRESENT: poor dentation Respiratory exam: PRESENT: clear to auscultation jaqueline. ABSENT: rales, rhonchi, wheezes Cardiovascular exam: PRESENT: RRR. ABSENT: diastolic murmur, rubs, systolic murmur GI/Abdominal exam: PRESENT: normal bowel sounds, soft. ABSENT: distended, guarding, mass, organolmegaly, rebound, tenderness Rectal exam: PRESENT: deferred Extremities exam: PRESENT: calf tenderness Neurological exam: PRESENT: other - unAble to do the neuro exam because patient is intubated under sedation. Results Laboratory Results: 05/31/19 05:50 05/31/19 05:50 05/30/19 05/31/19 05/31/19 20:43 01:32 05:50 WBC 12.9 H RBC 4.04 Hgb 11.5 L Hct 35.4 L MCV 88 MCH 28.5 MCHC 32.5 RDW 15.5 H Plt Count 241 Seg Neutrophils % 75.5 Lymphocytes % 17.9 Monocytes % 5.9 Eosinophils % 0.0 Basophils % 0.7 Absolute Neutrophils 9.8 H Absolute Lymphocytes 2.3 Absolute Monocytes 0.8 Absolute Eosinophils 0.0 Absolute Basophils 0.1 Carbonic Acid 0.91 L 1.05 HCO3/H2CO3 Ratio 24:1 22:1 ABG pH 7.48 H 7.46 H ABG pCO2 30.3 L 34.8 L ABG pO2 51.6 L 87.1 ABG HCO3 21.9 23.9 ABG O2 Saturation 89.4 L 97.1 ABG Base Excess -0.6 0.4 FiO2 5LPM 40% Sodium Potassium Chloride Carbon Dioxide Anion Gap BUN Creatinine Est GFR ( Amer) Est GFR (Non-Af Amer) Glucose Calcium Magnesium Total Bilirubin AST ALT Alkaline Phosphatase Total Protein Albumin 05/31/19 05:50 WBC RBC Hgb Hct MCV MCH MCHC RDW Plt Count Seg Neutrophils % Lymphocytes % Monocytes % Eosinophils % Basophils % Absolute Neutrophils Absolute Lymphocytes Absolute Monocytes Absolute Eosinophils Absolute Basophils Carbonic Acid HCO3/H2CO3 Ratio ABG pH ABG pCO2 ABG pO2 ABG HCO3 ABG O2 Saturation ABG Base Excess FiO2 Sodium 145.4 H Potassium 3.2 L Chloride 113 H Carbon Dioxide 27 Anion Gap 5 BUN 31 H Creatinine 0.86 Est GFR ( Amer) > 60 Est GFR (Non-Af Amer) > 60 Glucose 165 H Calcium 8.8 Magnesium 2.0 Total Bilirubin 0.6 AST 25 ALT 31 Alkaline Phosphatase 105 Total Protein 5.6 L Albumin 3.0 L 05/28/19 18:30 Cerebral Spinal Fluid - Tube 3 (Csf) Gram Stain - Final 05/28/19 18:30 Cerebral Spinal Fluid - Tube 3 (Csf) CSF Culture - Final NO GROWTH 3 DAYS 05/28/19 14:20 Catheterized Urine Urine Culture - Final NO GROWTH 2 DAYS 05/28/19 05/28/19 05/29/19 14:20 14:20 06:55 Creatine Kinase 414 H 1037 H CK-MB (CK-2) 6.78 H Troponin I 0.130 05/29/19 11:15 Creatine Kinase 1312 H CK-MB (CK-2) Troponin I Impressions: Cervical Spine CT 05/28/19 14:12 IMPRESSION: No fracture or static subluxation of the cervical spine. Multilevel discectomy and fusion from C3 through C7. Head CT 05/28/19 14:12 IMPRESSION: No acute intracranial pathology. EVIDENCE OF ACUTE STROKE: NO. Head CTA 05/29/19 00:00 IMPRESSION: NO CTA EVIDENCE OF STENOSIS OR ANEURYSM OF THE [place]. Interventional Vascular Procedure 05/29/19 00:00 IMPRESSION: Ultrasound guidance for vascular access. Neck CTA 05/29/19 00:00 IMPRESSION: 70- 80% stenosis of the proximal right ICA. Head MRI 05/29/19 15:17 IMPRESSION: Normal but limited due to motion. Recommend repeat when the p atient is more stable. EVIDENCE OF ACUTE STROKE: NO. Chest X-Ray 05/31/19 00:00 IMPRESSION: Lines and catheters in place. Lungs are clear copyright 2010 [employer]- All Rights Reserved Assessment and Plan - Diagnosis (1) Acute metabolic encephalopathy Is this a current diagnosis for this admission?: Yes Plan: Hyperglycemia, acute kidney injury metabolic acidosis could explain her altered mental status. LP requested to rule out meningitis. Until meningitis is ruled out patient is on Rocephin and vancomycin. 05/29/2019-patient admitted with altered mental status multiple reasons one is hyperglycemia with blood sugar than 690 that once 90 with metabolic acidosis, LP was abnormal waiting for the reports. And she is also has a recent history of pontine infarct CT head was negative at this time MRI of the brain is pending. CT of the head was also requested. 05/30/2019-patient admitted with altered mental status LP was negative as per ID recommendations antibiotics and acyclovir are discontinued. Previous history of strokes. Altered mental status may be secondary to hyperglycemia and medication overdose. Psych consult is going to be requested. Patient is more alert more awake today MRI of the head was negative CT of the neck shows 60 to 80% of the blockage in the right proximal carotid artery. 05/31/[id number]-hgrg-old female admitted for altered mental status most likely secondary to medication overdose. LP was done as per the ID recommendations meningitis is very unlikely. Antibiotics and acyclovir are discontinued patient is afebrile WBC count is stable. 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 ABG done this morning pH is 7.4 bicarb of 32. 05/30/2019-patient blood sugar is 265 on insulin sliding scale every 6 hours. Plan is to continue the present management. We are going to request for speech to clear to feed. 05/31/2019-patient latest blood sugar is 107. Patient n.p.o. status post intubation. Patient has NG tube. Plan is to continue to closely monitor the blood sugars. (3) Rhabdomyolysis Qualifiers: Encounter type: initial encounter Is this a current diagnosis for this admission?: Yes Plan: Will be corrected with hydration. 05/29/2019-patient has rhabdomyolysis with CPK of thousand causes unknown at this point. May be history of fall we do not know. 05/30/2019-patient came in with elevated CK levels most likely secondary to muscle damage. She is on IV fluids. 05/31/2019-patient came with elevated CKs most likely secondary to fall. CK level is 1312 on half normal saline at 100 cc/h plan is to see repeat the CK levels today. (4) Leukocytosis Is this a current diagnosis for this admission?: Yes Plan: We will monitor her CBC. 05/29/2019-patient admitted with elevated leukocytosis LP was abnormal waiting for the Gram stain and cell count presently on vancomycin and Zosyn started on IV acyclovir. ID consult was requested. Patient is going to be on droplet isolation. 05/30/2019-patient WBC count is 15,200 improving. Blood cultures are negative. Urine cultures are negative. LP was negative. Antibiotics are discontinued. 05/31/2019-patient's WBC count is 12,900 improving. Patient is off the antibiotics. Leukocytosis most likely reactive leukocytosis. (5) Acute kidney injury Is this a current diagnosis for this admission?: Yes Plan: Creatinine of 1.26. Patient has been started on normal saline at rate of 200 mm/h which will correct the acute kidney injury. 05/29/2019-patient creatinine today is 0.86 at the time of admission 1.26 ELFEGO most likely due to poor oral intake resolving. 05/30/2019-patient creatinine is 0.96 on admission is 1.26 ELFEGO most likely secondary to poor oral intake. 05/31/2019-patient came in with ELFEGO admission creatinine is 1.26 and the latest creatinine is 0.8. Acute kidney injury secondary to poor oral intake is resol lakshmi. - Time Time Spent with patient: 25-34 minutes Medications reviewed and adjusted accordingly: Yes Anticipated discharge: Home
[2019-05-31] MEDS: AMLODIPINE BESYLATE 10 MG TABLET PO SCH (09:34)
[2019-05-31] MEDS: LISINOPRIL 10 MG TABLET PO SCH (09:35)
[2019-05-31] MEDS: LEVOTHYROXINE SODIUM INJ/PF 0.1 MG SDV IV SCH (09:35)
[2019-05-31] MEDS: DEXAMETHASONE SOD PHOSPHATE INJ 4 MG/1 ML VIAL IV SCH ×2 (09:35→18:13)
[2019-05-31] MEDS: PANTOPRAZOLE SODIUM 40 MG VIAL IV SCH (09:35)
[2019-05-31] MEDS: MUPIROCIN CALCIUM 2% CREAM 15 GM TP SCH ×2 (09:39→17:41)
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
--- NOTE | 2019-05-31 11:37 | RADIOLOGY REPORT (SQ) ---
EXAM DESCRIPTION: CTA CHEST COMPLETED DATE/TIME: 05/31/2019 10:33 am REASON FOR STUDY: resp failure COMPARISON: None. TECHNIQUE: CT scan of the chest performed using helical scanning technique with dynamic intravenous contrast injection. Images reviewed with lung, soft tissue and bone windows. Reconstructed coronal and sagittal MPR images reviewed. Additional 3 dimensional post-processing performed to develop Maximal Intensity Projection images (DC P). All images stored on PACS. All CT scanners at this facility use dose modulation, iterative reconstruction, and/or weight based d osing when appropriate to reduce radiation dose to as low as reasonably achievable (ALARA). [facility]: Dose Right [facility]: CareDose [facility]: Dose Right [facility]: Teradose 4D [facility]: Emerging Tigers CONTRAST TYPE AND DOSE: contrast/concentration: Isovue 350.00 mg/ml; Total Contrast Delivered: 71.0 ml; Total Saline Delivered: 80.0 ml Contrast bolus optimized for the pulmonary arteries. Not diagnostic for the aorta. RENAL FUNCTION: GFR > 60. RADIATION DOSE: CT Rad equipment meets quality standard of care and radiation dose reduction techniq ues were employed. CTDIvol: 13.2 - 14.3 mGy. DLP: 492 mGy-cm. . LIMITATIONS: None. FINDINGS: LUNGS AND PLEURA: Left lower lobe consolidation. No effusions. AORTA AND GREAT VESSELS: No aneurysm. Contrast bolus not optimized for the aorta. HEART: No pericardial effusion. PULMONARY ARTERIES: No emboli visualized in the main pulmonary arteries or the segmental branches. HILAR AND MEDIASTINAL STRUCTURES: No identified masses or abnormal nodes. HARDWARE: None in the chest. UPPER ABDOMEN: Nasogastric tube in the stomach. THYROID AND OTHER SOFT TISSUES: No masses. No adenopathy. BONES: No acute or significant finding. 3D MIPS: Confirm above findings. OTHER: Appropriate position of nasogastric tube, endotracheal tube, and right-sided central line. IMPRESSION: Left lower lobe pneumonia. No PE. COMMENT: Quality ID # [id number]: Final reports with documentation of one or more dose reduction techniques (e.g., Automated exposure control, adjustment of the mA and/or kV according to patient size, use of iterative reconstruction technique) TECHNICAL DOCUMENTATION: JOB ID: [id number] [employer]- All Rights Reserved Reading location - IP/workstation name: [email or web address]
[2019-05-31] MEDS ORDERED: SUCCINYLCHOLINE CHLORIDE INJ 200 MG/10 ML VIAL ONE (14:11)
[2019-05-31] MEDS: ENOXAPARIN SODIUM INJ 40 MG/0.4 ML DISP.SYRIN SUBCUT SCH (17:45)
[2019-05-31] MEDS: LEVALBUTEROL HCL NEB 0.63 MG/3 ML AMPUL NEB PRN (20:28)
[2019-05-31] MEDS: QUETIAPINE FUMARATE 100 MG TABLET PO SCH (21:36)
[2019-05-31] MEDS: ATORVASTATIN CALCIUM 10 MG TABLET PO SCH (21:36)
[2019-06-01] MEDS: IPRATROPIUM BROMIDE 0.02% NEB 0.5 MG/2.5 ML AMPUL NEB SCH ×3 (00:36→16:58)
[2019-06-01] MEDS: LEVALBUTEROL HCL NEB 1.25 MG/3 ML AMPUL NEB SCH ×3 (00:36→16:58)
[2019-06-01] MEDS ORDERED: 1/2 NORMAL SALINE 500 ML IV ONE ×2 (02:00→03:30)
[2019-06-01] MEDS: INSULIN REG, HUMAN 100 UNIT/ML 3 ML VIAL (PYX) SUBCUT SCH ×3 (02:19→12:19)
[2019-06-01] MEDS: CHLORPROMAZINE HCL INJ 25 MG/1 ML AMPULE IV SCH ×4 (02:45→17:26)
[2019-06-01] MEDS: 1/2 NORMAL SALINE 1,000 ML IV PRN ×2 (03:40→19:59)
[2019-06-01 06:11] LABS: ARTERIAL BLOOD BASE EXCESS -5.8 mmol/L; ARTERIAL BLOOD FIO2 30%; ARTERIAL BLOOD HCO3 17.4 mmol/L (20-24); ARTERIAL BLOOD O2 SATURATION 98.9 % (94-98); ARTERIAL BLOOD PCO2 26.7 mmHg (35-45); ARTERIAL BLOOD PH 7.43 (7.35-7.45); ARTERIAL BLOOD PO2 136.7 mmHg (80-100); ARTERIAL BLOOD TOTAL CO2 18.3 mmol/L (21-25)
[2019-06-01 06:13] LABS: ABSOLUTE LYMPHOCYTES (AUTO) 1.4 10^3/uL (0.5-4.7); ABSOLUTE MONOCYTES (AUTO) 0.3 10^3/uL (0.1-1.4); ABSOLUTE NEUT (AUTO) 5.5 10^3/uL (1.7-8.2); BASOPHILS % (AUTO) 0.3 % (0-2); HEMATOCRIT 29.5 % (36.0-47.0); HEMOGLOBIN 9.9 g/dL (12.0-15.5); LYMPHOCYTES % (AUTO) 19.4 % (13-45); MEAN CORPUSCULAR HEMOGLOBIN 29.4 pg (27.0-33.4); MEAN CORPUSCULAR HGB CONC 33.5 g/dL (32.0-36.0); MEAN CORPUSCULAR VOLUME 88 fl (80-97); MONOCYTES % (AUTO) 4.5 % (3-13); PLATELET COUNT 211 10^3/uL (150-450); RED BLOOD COUNT 3.37 10^6/uL (3.72-5.28); RED CELL DISTRIBUTION WIDTH 15.6 % (11.5-14.0); SEGMENTED NEUTROPHILS % (AUTO) 75.8 % (42-78); TOTAL CELLS COUNTED % (AUTO) 100 %; WHITE BLOOD COUNT 7.3 10^3/uL (4.0-10.5)
[2019-06-01 06:49] LABS: ALANINE AMINOTRANSFERASE 20 U/L (9-52); ALBUMIN 2.3 g/dL (3.5-5.0); ALKALINE PHOSPHATASE 80 U/L (38-126); ANION GAP 7 (5-19); ASPARTATE AMINO TRANSFERASE 16 U/L (14-36); BILIRUBIN,DIRECT 0.3 mg/dL (0.0-0.4); BILIRUBIN,TOTAL 0.3 mg/dL (0.2-1.3); BLOOD UREA NITROGEN 30 mg/dL (7-20); CARBON DIOXIDE 21 mmol/L (22-30); CHLORIDE 112 mmol/L (98-107); GLUCOSE 174 mg/dL (75-110); POTASSIUM 3.6 mmol/L (3.6-5.0); TOTAL PROTEIN 4.7 g/dL (6.3-8.2)
[2019-06-01] MEDS: BUDESONIDE NEB 0.5 MG/2 ML AMPUL NEB SCH ×2 (08:39→21:26)
--- NOTE | 2019-06-01 10:18 | PDOC PROGRESS REPORT ---
Subjective Progress Note for:: 06/01/19 Subjective:: 54 year old female patient brought by EMS for altered mental status. Since patient is mentally altered and sedated she is not source of history. Brief history is obtained orally from the ER attending and reviewing available charts. Per ER attending note patient arrives via EMS was found by neighbor under her bed. Patient initially was unresponsive but later patient become agitated and combative. She was given by EMS to milligram of IV Ativan. Upon arrival mykel morejon was found to be on 5 L oxygen via nasal cannula and she saturates 97%. Her initial blood work shows mild hyponatremia with sodium of 145.3 market hyperglycemia with blood glucose level of 680, creatinine of 1.26 and mild rhabdomyolysis. Her CT head spine and MRI of the brain are negative for acute process. With unresponsiveness and leukocytosis the possibility of meningitis entertained and LP requested. Further detailed history and review of systems unobtainable. 05/29/[id number]-oddf-old female admitted with altered mental status unable to get proper history. CT head was negative. Blood sugars are 619 at the time of admission they came around around 250 insulin drip was discontinued she is on sliding scale. Plan to do the MRI of the brain without contrast today and a CT of the neck today and consultation with ID was requested after the LP shows WBC of 4 and high glucose and high blood type protein. Waiting for the cell count and Gram stain. Presently on IV vancomycin and Zosyn and acyclovir is going to be added IV. Examination patient is moaning and moving all her upper and lower extremities pupils are very much dilated but not responding to the verbal commands not responding well to the painful stimuli. 05/30/[id number]-tfis-old female admitted with altered mental status most likely medication induced. MRI of the head was negative for acute pathology CTA of the neck and head indicates 60 to 80% blockage in the right proximal carotid artery. Patient is more alert more awake compared to yesterday. Still not unable to take any medications by mouth. She is off the fluids since yesterday sodium went up to 152 urinary output is decreased. Blood pressure still high because of the agitation systolic blood pressure is more than 200. Started on half- normal saline at 100 cc/h to closely monitor the blood pressure. She is on IV hydralazine 10 mg every 4 PRN for systolic blood pressure more than 150 and IV labetalol 100 mg added to the medication to control the blood pressures. 05/31/[id number]-tscl-old female admitted for altered mental status MRI of the brain was negative CTA of the neck shows right-sided coronary artery stenosis 60 to 80%. Last night as per the hospitalist patient went into respiratory distress status post intubation. Post ABG shows PCO2 of 87%. Chest x-ray this morning is normal. Vital signs are stable. Pulse ox is 98% on SIMV with tidal volume of 450. PEEP of 5. Plan is to continue the IV antibiotic therapy continue the IV fluids continue to be on ventilator at least for next 24 hours. To continue the sedation. 06/01/[id number]-bfcm-old female admitted with altered mental status MRI of the brain was negative for acute stroke CT of the neck shows 60 to 80% of the blockage in the right carotid artery. Patient presently intubated because of the respiratory distress. On pressure support. Patient is not following the c ommands and not waking up enough to extubate the patient. There is a concern about the possibility of an anoxic encephalopathy. Reason For Visit: ACUTE METABOLIC ENCEPHALOPATHY. DKA Physical Exam Vital Signs: Temp Pulse Resp BP Pulse Ox 97.2 F 59 L 16 148/86 H 100 06/01/19 08:00 06/01/19 08:39 06/01/19 08:39 06/01/19 08:00 06/01/19 08:39 Intake & Output 05/31/19 06/01/19 06/02/19 06:59 06:59 06:59 Intake Total 1999 2254 Output Total 1425 496 125 Balance 575 1758 -125 Weight 61.3 kg 63.7 kg General appearance: PRESENT: other - Shunt is presently intubated and on Diprivan. Head exam: PRESENT: atraumatic Eye exam: PRESENT: PERRLA Mouth exam: PRESENT: moist, tongue midline Neck exam: ABSENT: carotid bruit, JVD, lymphadenopathy, thyromegaly Respiratory exam: PRESENT: other - ET tube in place chest bilateral entry was good. Cardiovascular exam: PRESENT: RRR. ABSENT: diastolic murmur, rubs, systolic murmur GI/Abdominal exam: PRESENT: normal bowel sounds, soft. ABSENT: distended, guarding, mass, organolmegaly, rebound, tenderness Rectal exam: PRESENT: deferred Gentrourinary exam: PRESENT: indwelling catheter Extremities exam: PRESENT: full ROM. ABSENT: calf tenderness, clubbing, pedal edema Neurological exam: PRESENT: other - Shunt is presently on Diprivan. Sedated. Results Laboratory Results: 06/01/19 03:55 06/01/19 03:55 05/31/19 06/01/19 06/01/19 14:30 03:55 03:55 WBC 7.3 RBC 3.37 L Hgb 9.9 L Hct 29.5 L MCV 88 MCH 29.4 MCHC 33.5 RDW 15.6 H Plt Count 211 Seg Neutrophils % 75.8 Lymphocytes % 19.4 Monocytes % 4.5 Eosinophils % 0.0 Basophils % 0.3 Absolute Neutrophils 5.5 Absolute Lymphocytes 1.4 Absolute Monocytes 0.3 Absolute Eosinophils 0.0 Absolute Basophils 0.0 Carbonic Acid 0.80 L HCO3/H2CO3 Ratio 21:1 ABG pH 7.43 ABG pCO2 26.7 L ABG pO2 136.7 H ABG HCO3 17.4 L ABG O2 Saturation 98.9 H ABG Base Excess -5.8 FiO2 30% Sodium Potassium 3.9 Chloride Carbon Dioxide Anion Gap BUN Creatinine Est GFR ( Amer) Est GFR (Non-Af Amer) Glucose Calcium Magnesium Total Bilirubin AST ALT Alkaline Phosphatase Total Protein Albumin 06/01/19 03:55 WBC RBC Hgb Hct MCV MCH MCHC RDW Plt Count Seg Neutrophils % Lymphocytes % Monocytes % Eosinophils % Basophils % Absolute Neutrophils Absolute Lymphocytes Absolute Monocytes Absolute Eosinophils Absolute Basophils Carbonic Acid HCO3/H2CO3 Ratio ABG pH ABG pCO2 ABG pO2 ABG HCO3 ABG O2 Saturation ABG Base Excess FiO2 Sodium 139.6 Potassium 3.6 Chloride 112 H Carbon Dioxide 21 L Anion Gap 7 BUN 30 H Creatinine 0.95 Est GFR ( Amer) > 60 Est GFR (Non-Af Amer) > 60 Glucose 174 H Calcium 8.0 L Magnesium 1.8 Total Bilirubin 0.3 AST 16 ALT 20 Alkaline Phosphatase 80 Total Protein 4.7 L Albumin 2.3 L 05/28/19 18:30 Cerebral Spinal Fluid - Tube 3 (Csf) Gram Stain - Final 05/28/19 18:30 Cerebral Spinal Fluid - Tube 3 (Csf) CSF Culture - Final NO GROWTH 3 DAYS 07/11/19 07/11/19 07/12/19 14:20 14:20 06:55 Creatine Kinase 414 H 1037 H CK-MB (CK-2) 6.78 H Troponin I 0.130 05/29/19 05/31/19 11:15 10:39 Creatine Kinase 1312 H 84 CK-MB (CK-2) Troponin I Impressions: Cervical Spine CT 05/28/19 14:12 IMPRESSION: No fracture or static subluxation of the cervical spine. Multilevel discectomy and fusion from C3 through C7. Head CT 05/28/19 14:12 IMPRESSION: No acute intracranial pathology. EVIDENCE OF ACUTE STROKE: NO. Head CTA 05/29/19 00:00 IMPRESSION: NO CTA EVIDENCE OF STENOSIS OR ANEURYSM OF THE COUNCIL OF SANDERS. Interventional Vascular Procedure 05/29/19 00:00 IMPRESSION: Ultrasound guidance for vascular access. Neck CTA 05/29/19 00:00 IMPRESSION: 70- 80% stenosis of the proximal right ICA. Head MRI 05/29/19 15:17 IMPRESSION: Normal but limited due to motion. Recommend repeat when the patient is more stable. EVIDENCE OF ACUTE STROKE: NO. Chest X-Ray 05/31/19 00:00 IMPRESSION: Lines and catheters in place. Lungs are clear copyright 2010 [employer]- All Rights Reserved Chest/Abdomen CTA 05/31/19 00:00 IMPRESSION: Left lower lobe pneumonia. No PE. Assessment and Plan - Diagnosis (1) Acute metabolic encephalopathy Is this a current diagnosis for this admission?: Yes Plan: Hyperglycemia, acute kidney injury metabolic acidosis could explain her altered mental status. LP requested to rule out meningitis. Until meningitis is ruled out patient is on Rocephin and vancomycin. 05/29/2019-patient admitted with altered mental status multiple reasons one is hyperglycemia with blood sugar than 690 that once 90 with metabolic acidosis, LP was abnormal waiting for the reports. And she is also has a recent history of pontine infarct CT head was negative at this time MRI of the brain is pending. CT of the head was also requested. 05/30/2019-patient admitted with altered mental status LP was negative as per ID recommendations antibiotics and acyclovir are discontinued. Previous history of strokes. Altered mental status may be secondary to hyperglycemia and medication overdose. Psych consult is going to be requested. Patient is more alert more a wake today MRI of the head was negative CT of the neck shows 60 to 80% of the blockage in the right proximal carotid artery. 05/31/[id number]-zycz-old female admitted for altered mental status most likely secondary to medication overdose. LP was done as per the ID recommendations meningitis is very unlikely. Antibiotics and acyclovir are discontinued patient is afebrile WBC count is stable. 06/01/2019-patient was admitted with altered mental status CT head is negative for acute stroke MRI is negative for acute stroke CT of the neck shows right carotid artery occlusions with 60 to 80% blockage. anoxic Encephalopathy is a possibility also. EEG was requested. 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 ABG done this morning pH is 7.4 bicarb of 32. 05/30/2019-patient blood sugar is 265 on insulin sliding scale every 6 hours. Plan is to continue the present management. We are going to request for speech to clear to feed. 05/31/2019-patient latest blood sugar is 107. Patient n.p.o. status post intubation. Patient has NG tube. Plan is to continue to closely monitor the blood sugars. 06/01/2019-patient blood sugar this morning is 170. On insulin sliding scale every 6 hours plan is to continue the present management. (3) Rhabdomyolysis Qualifiers: Encounter type: initial encounter Is this a current diagnosis for this admission?: Yes Plan: Will be corrected with hydration. 05/29/2019-patient has rhabdomyolysis with CPK of thousand causes unknown at this point. May be history of fall we do not know. 05/30/2019-patient came in with elevated CK levels most likely secondary to muscle damage. She is on IV fluids. 05/31/2019-patient came with elevated CKs most likely secondary to fall. CK level is 1312 on half normal saline at 100 cc/h plan is to see repeat the CK levels today. 06/01/2019-patient came in with elevated CKs receiving IV fluids. latest CK is 84. (4) Leukocytosis Is this a current diagnosis for this admission?: Yes Plan: We will monitor her CBC. 05/29/2019-patient admitted with elevated leukocytosis LP was abnormal waiting for the Gram stain and cell count presently on vancomycin and Zosyn started on IV acyclovir. ID consult was requested. Patient is going to be on droplet isolation. 05/30/2019-patient WBC count is 15,200 improving. Blood cultures are negative. Urine cultures are negative. LP was negative. Antibiotics are discontinued. 05/31/2019-patient's WBC count is 12,900 improving. Patient is off the antibiotics. Leukocytosis most likely reactive leukocytosis. 12/02/2018-patient came in with elevated WBC count leukocytosis resolved WBC count today is 7.3. (5) Acute kidney injury Is this a current diagnosis for this admission?: Yes Plan: Creatinine of 1.26. Patient has been started on normal saline at rate of 200 mm/h which will correct the acute kidney injury. 05/29/2019-patient creatinine today is 0.86 at the time of admission 1.26 ELFEGO most likely due to poor oral intake resolving. 05/30/2019-patient creatinine is 0.96 on admission is 1.26 ELFEGO most likely secondary to poor oral intake. 05/31/2019-patient came in with ELFEGO admission creatinine is 1.26 and the latest creatinine is 0.8. Acute kidney injury secondary to poor oral intake is resolved. 06/01/[id number]-imtj-old female came in with ELFEGO admission creatinine is 1.26 today's creatinine was 0.95 acute kidney injury is resolved. - Time Time Spent with patient: 15-24 minutes Medications reviewed and adjusted accordingly: Yes Anticipated discharge: SNF
[2019-06-01] MEDS: MUPIROCIN CALCIUM 2% CREAM 15 GM TP SCH ×2 (10:29→17:25)
[2019-06-01] MEDS: LEVOTHYROXINE SODIUM INJ/PF 0.1 MG SDV IV SCH (10:30)
[2019-06-01] MEDS: DEXAMETHASONE SOD PHOSPHATE INJ 4 MG/1 ML VIAL IV SCH ×2 (10:30→17:26)
[2019-06-01] MEDS: LISINOPRIL 10 MG TABLET PO SCH (10:30)
[2019-06-01] MEDS: AMLODIPINE BESYLATE 10 MG TABLET PO SCH (10:30)
[2019-06-01] MEDS ORDERED: GLUCAGON,HUMAN RECOMB 1 MG INJ IM PRN (12:30)
[2019-06-01] MEDS ORDERED: DEXTROSE 40% GEL 15 GM TUBE X 2 PO PRN (12:30)
[2019-06-01] MEDS ORDERED: DEXTROSE 40% GEL 15 GM TUBE PO PRN (12:30)
[2019-06-01] MEDS ORDERED: DEXTROSE 50%-WATER SYRINGE 12.5 GM/25 ML DOSE IV PRN (12:30)
[2019-06-01] MEDS ORDERED: DEXTROSE 50%-WATER SYRINGE 25 GM/50 ML DOSE IV PRN (12:30)
[2019-06-01] MEDS: INSULIN LISPRO 100 UNIT/ML 3 ML VIAL SUBCUT SCH ×3 (13:03→23:47)
--- NOTE | 2019-06-01 13:56 | Progress Note ---
Provider Note Provider Note: 06/01/2019-patient came in with hypertensive emergency the diagnosis is supported by blood pressures of 210/109, 219/107, 255/104. These high blood pressures are associated with acute kidney injury admission creatinine is 1.26 improved .84 today.
[2019-06-01] MEDS: ENOXAPARIN SODIUM INJ 40 MG/0.4 ML DISP.SYRIN SUBCUT SCH (17:26)
[2019-06-01] MEDS: LORAZEPAM INJ 2 MG/1 ML VIAL IV PRN (17:51)
[2019-06-01] MEDS: PROPOFOL 1,000 MG/100 ML INFUS..BTL IV PRN (17:52)
[2019-06-01] MEDS ORDERED: VANCOMYCIN HCL INJ 1000 MG VIAL IV SCH (18:00)
[2019-06-01] MEDS: ATORVASTATIN CALCIUM 10 MG TABLET PO SCH (21:56)
[2019-06-01] MEDS: QUETIAPINE FUMARATE 100 MG TABLET PO SCH (21:56)
[2019-06-01] MEDS: VANCOMYCIN HCL 750 MG in DEXTROSE 5%-WATER 250 ML IV SCH (21:56)
[2019-06-02] MEDS: PROPOFOL 1,000 MG/100 ML INFUS..BTL IV PRN ×4 (00:57→18:43)
[2019-06-02] MEDS: LEVALBUTEROL HCL NEB 1.25 MG/3 ML AMPUL NEB SCH ×3 (01:11→16:22)
[2019-06-02] MEDS: IPRATROPIUM BROMIDE 0.02% NEB 0.5 MG/2.5 ML AMPUL NEB SCH ×3 (01:11→16:22)
[2019-06-02] MEDS: CHLORPROMAZINE HCL INJ 25 MG/1 ML AMPULE IV SCH ×3 (01:33→18:44)
[2019-06-02] MEDS: 1/2 NORMAL SALINE 1,000 ML IV PRN ×2 (04:15→15:59)
[2019-06-02 04:41] LABS: ABSOLUTE BASOPHILS # (AUTO) 0.1 10^3/uL (0.0-0.2); ABSOLUTE LYMPHOCYTES (AUTO) 1.5 10^3/uL (0.5-4.7); ABSOLUTE MONOCYTES (AUTO) 0.4 10^3/uL (0.1-1.4); ABSOLUTE NEUT (AUTO) 4.3 10^3/uL (1.7-8.2); BASOPHILS % (AUTO) 1.4 % (0-2); HEMATOCRIT 30.9 % (36.0-47.0); HEMOGLOBIN 10.5 g/dL (12.0-15.5); LYMPHOCYTES % (AUTO) 23.5 % (13-45); MEAN CORPUSCULAR HEMOGLOBIN 29.5 pg (27.0-33.4); MEAN CORPUSCULAR VOLUME 87 fl (80-97); MONOCYTES % (AUTO) 5.9 % (3-13); PLATELET COUNT 211 10^3/uL (150-450); RED BLOOD COUNT 3.56 10^6/uL (3.72-5.28); RED CELL DISTRIBUTION WIDTH 14.9 % (11.5-14.0); SEGMENTED NEUTROPHILS % (AUTO) 69.2 % (42-78); TOTAL CELLS COUNTED % (AUTO) 100 %; WHITE BLOOD COUNT 6.2 10^3/uL (4.0-10.5)
[2019-06-02 05:00] LABS: ALANINE AMINOTRANSFERASE 28 U/L (9-52); ALBUMIN 2.5 g/dL (3.5-5.0); ALKALINE PHOSPHATASE 92 U/L (38-126); ANION GAP 6 (5-19); ASPARTATE AMINO TRANSFERASE 15 U/L (14-36); BILIRUBIN,DIRECT 0.3 mg/dL (0.0-0.4); BILIRUBIN,TOTAL 0.4 mg/dL (0.2-1.3); BLOOD UREA NITROGEN 20 mg/dL (7-20); CALCIUM 8.3 mg/dL (8.4-10.2); CARBON DIOXIDE 19 mmol/L (22-30); CHLORIDE 112 mmol/L (98-107); GLUCOSE 190 mg/dL (75-110); POTASSIUM 3.9 mmol/L (3.6-5.0); TOTAL PROTEIN 4.8 g/dL (6.3-8.2)
[2019-06-02 05:38] LABS: ARTERIAL BLOOD BASE EXCESS -3.4 mmol/L; ARTERIAL BLOOD H2CO3 0.84 mmol/L (1.05-1.35); ARTERIAL BLOOD HCO3 19.4 mmol/L (20-24); ARTERIAL BLOOD O2 SATURATION 96.8 % (94-98); ARTERIAL BLOOD PCO2 27.8 mmHg (35-45); ARTERIAL BLOOD PH 7.46 (7.35-7.45); ARTERIAL BLOOD PO2 81.9 mmHg (80-100); ARTERIAL BLOOD TOTAL CO2 20.3 mmol/L (21-25)
[2019-06-02 05:45] LABS: ARTERIAL BLOOD FIO2 25%
[2019-06-02] MEDS: INSULIN LISPRO 100 UNIT/ML 3 ML VIAL SUBCUT SCH ×3 (05:58→18:43)
--- NOTE | 2019-06-02 07:32 | RADIOLOGY REPORT (SQ) ---
EXAM DESCRIPTION: XR CHEST 1 VIEW COMPLETED DATE/TME: 06/02/2019 06:00 CLINICAL HISTORY: 54 years Female, resp failure COMPARISON: 2 days prior. NUMBER OF VIEWS/TECHNIQUE: 1/AP FINDINGS: Clear lungs of adequate volume, and normal cardiac silhouette. Adequate appearing endotracheal tube. Adequate appearing enteric tube partially obscured. Adequate appearing right jugular central line. No pneumothorax. Stable bony thorax. IMPRESSION: No significant change.
[2019-06-02] MEDS: BUDESONIDE NEB 0.5 MG/2 ML AMPUL NEB SCH ×2 (08:00→20:40)
[2019-06-02] MEDS: DEXAMETHASONE SOD PHOSPHATE INJ 4 MG/1 ML VIAL IV SCH ×2 (10:37→18:43)
[2019-06-02] MEDS: VANCOMYCIN HCL 750 MG in DEXTROSE 5%-WATER 250 ML IV SCH ×2 (10:37→21:10)
[2019-06-02] MEDS: LEVOTHYROXINE SODIUM INJ/PF 0.1 MG SDV IV SCH (10:37)
[2019-06-02] MEDS: LISINOPRIL 10 MG TABLET PO SCH (10:38)
[2019-06-02] MEDS: MUPIROCIN CALCIUM 2% CREAM 15 GM TP SCH ×2 (10:38→18:42)
[2019-06-02] MEDS: AMLODIPINE BESYLATE 10 MG TABLET PO SCH (10:38)
[2019-06-02 15:34] LABS: ALBUMIN 2.8 g/dL (3.5-5.0); ANION GAP 6 (5-19); BLOOD UREA NITROGEN 18 mg/dL (7-20); CALCIUM 8.5 mg/dL (8.4-10.2); CARBON DIOXIDE 22 mmol/L (22-30); CHLORIDE 111 mmol/L (98-107); GLUCOSE 231 mg/dL (75-110); POTASSIUM 3.7 mmol/L (3.6-5.0)
--- NOTE | 2019-06-02 16:05 | NEURO WORKBENCH EEG REPORT ---
EEG Report Patient: Michael Suarez ID: [id number] Referring Doctor: Adair Rey DOS: 06/02/2019 Medications: Norvasc, Lipitor, Pulmicort, Thorazine, decadron, lovenox, porcine, Humalog, Atrovent, Xopenex, Synthroid, versed, mupirocin, propofol, Seroquel, vancomycin, dextrose, valium, gabapentin, ativan History This is a 54 year old woman with a history of hypothyroidism and type 2 diabetes who was found down after unknown period of time early 05/31/2019. She is on propofol 40ug, intubated (with other sedatives listed including versed and prn Ativan/valium/gabapentin). This EEG was requested for altered mental status. EEG Interpretation This EEG was recorded in the obtunded state with the patient intubated and sedated. The EEG is characterized by a disorganized background with diffuse slowing in the theta and delta range with some alpha activity. There was no posterior dominant rhythm noted but there was reactivity to passive eye opening and closing. There were spontaneous head movements with associated muscle artifact on the EEG. Vertex waves and sleep spindles were seen in the midline head regions. Photic stimulation resulted in a moderate driving response. There were no definite epileptiform abnormalities nor periodic patterns. There were no seizure patterns. The EKG showed a mainly regular rhythm with occasional irregularity (appeared to be PVCs) noted. EEG Classification Generalized background slowing Disorganization EKG - irregularity EEG Impression This EEG is abnormal. It is consistent with diffuse cerebral dysfunction. However, to characterize the background more accurately, a repeat EEG without sedatives may be repeated. There were no epileptiform abnormalities. The EKG may require further investigation. INTERPRETING NEUROLOGIST: Karla Reese MD, FRCPC Board Certified in Neurology, with special qualification in Child Neurology, and in Clinical Neurophysiology [facility]
[2019-06-02] MEDS: ENOXAPARIN SODIUM INJ 40 MG/0.4 ML DISP.SYRIN SUBCUT SCH (18:43)
[2019-06-02] MEDS: QUETIAPINE FUMARATE 100 MG TABLET PO SCH (21:09)
[2019-06-02] MEDS: ATORVASTATIN CALCIUM 10 MG TABLET PO SCH (21:09)
[2019-06-03] MEDS: INSULIN LISPRO 100 UNIT/ML 3 ML VIAL SUBCUT SCH ×5 (00:03→23:26)
[2019-06-03] MEDS: IPRATROPIUM BROMIDE 0.02% NEB 0.5 MG/2.5 ML AMPUL NEB SCH ×4 (00:35→23:44)
[2019-06-03] MEDS: LEVALBUTEROL HCL NEB 1.25 MG/3 ML AMPUL NEB SCH ×4 (00:35→23:44)
[2019-06-03] MEDS: CHLORPROMAZINE HCL INJ 25 MG/1 ML AMPULE IV SCH ×3 (01:17→17:15)
[2019-06-03] MEDS: PROPOFOL 1,000 MG/100 ML INFUS..BTL IV PRN ×4 (01:17→20:42)
[2019-06-03] MEDS: 1/2 NORMAL SALINE 1,000 ML IV PRN ×2 (03:11→16:21)
[2019-06-03 06:24] LABS: ALBUMIN 2.5 g/dL (3.5-5.0); BLOOD UREA NITROGEN 16 mg/dL (7-20); CALCIUM 8.3 mg/dL (8.4-10.2); CARBON DIOXIDE 24 mmol/L (22-30); CHLORIDE 110 mmol/L (98-107); GLUCOSE 210 mg/dL (75-110); POTASSIUM 3.7 mmol/L (3.6-5.0)
[2019-06-03 06:33] LABS: ANION GAP 4 (5-19)
--- NOTE | 2019-06-03 06:50 | PDOC PROGRESS REPORT ---
Subjective Progress Note for:: 06/02/19 Subjective:: Actually opening eyes transiently to verbal stimulus. Attempts to answer questions by head nod. Eyes quickly closed after several seconds. Reason For Visit: ACUTE METABOLIC ENCEPHALOPATHY. DKA Physical Exam Vital Signs: Temp Pulse Resp BP Pulse Ox 98.1 F 67 16 150/85 H 100 06/02/19 12:00 06/02/19 12:00 06/02/19 12:00 06/02/19 12:00 06/02/19 12:00 Intake & Output 06/01/19 06/02/19 06/03/19 06:59 06:59 06:59 Intake Total 2254 2397 116 Output Total 496 2315 805 Balance 1758 82 -689 Weight 63.7 kg 64.8 kg General appearance: PRESENT: no acute distress, cooperative - Attempts to interact, well-developed Head exam: PRESENT: atraumatic, normocephalic Ear exam: PRESENT: normal external ear exam Mouth exam: PRESENT: other - Endotracheal and nasogastric tubes in place Respiratory exam: PRESENT: clear to auscultation jaqueline - Anteriorly, decreased breath sounds - Distant breath sounds, symmetrical, unlabored. ABSENT: accessory muscle use, rales, rhonchi, tachypnea, wheezes Cardiovascular exam: PRESENT: RRR, +S1, +S2 GI/Abdominal exam: PRESENT: normal bowel sounds, soft. ABSENT: distended, tenderness Rectal exam: PRESENT: deferred Gentrourinary exam: PRESENT: indwelling catheter Extremities exam: ABSENT: joint swelling, pedal edema Musculoskeletal exam: PRESENT: normal inspection Neurological exam: PRESENT: awake, oriented to person - Open her eyes to her name. Unable to further evaluate.. ABSENT: alert - Still on propofol Psychiatric exam: PRESENT: flat affect. ABSENT: agitated, anxious Focused psych exam: ABSENT: restlessness Skin exam: PRESENT: dry, normal color, warm. ABSENT: rash Results Laboratory Results: 06/02/19 04:15 06/02/19 04:15 06/02/19 06/02/19 06/02/19 04:15 04:15 05:20 WBC 6.2 RBC 3.56 L Hgb 10.5 L Hct 30.9 L MCV 87 MCH 29.5 MCHC 34.0 RDW 14.9 H Plt Count 211 Seg Neutrophils % 69.2 Lymphocytes % 23.5 Monocytes % 5.9 Eosinophils % 0.0 Basophils % 1.4 Absolute Neutrophils 4.3 Absolute Lymphocytes 1.5 Absolute Monocytes 0.4 Absolute Eosinophils 0.0 Absolute Basophils 0.1 Carbonic Acid 0.84 L HCO3/H2CO3 Ratio 23:1 ABG pH 7.46 H ABG pCO2 27.8 L ABG pO2 81.9 ABG HCO3 19.4 L ABG O2 Saturation 96.8 ABG Base Excess -3.4 FiO2 25% Sodium 137.4 Potassium 3.9 Chloride 112 H Carbon Dioxide 19 L Anion Gap 6 BUN 20 Creatinine 0.75 Est GFR ( Amer) > 60 Est GFR (Non-Af Amer) > 60 Glucose 190 H Calcium 8.3 L Magnesium 1.9 Total Bilirubin 0.4 AST 15 ALT 28 Alkaline Phosphatase 92 Total Protein 4.8 L Albumin 2.5 L 05/28/19 05/28/19 05/29/19 14:20 14:20 06:55 Creatine Kinase 414 H 1037 H CK-MB (CK-2) 6.78 H Troponin I 0.130 05/29/19 05/31/19 11:15 10:39 Creatine Kinase 1312 H 84 CK-MB (CK-2) Troponin I Impressions: Cervical Spine CT 05/28/19 14:12 IMPRESSION: No fracture or static subluxation of the cervical spine. Multilevel discectomy and fusion from C3 through C7. Head CT 05/28/19 14:12 IMPRESSION: No acute intracranial pathology. EVIDENCE OF ACUTE STROKE: NO. Head CTA 05/29/19 00:00 IMPRESSION: NO CTA EVIDENCE OF STENOSIS OR ANEURYSM OF [place]. Interventional Vascular Procedure 05/29/19 00:00 IMPRESSION: Ultrasound guidance for vascular access. Neck CTA 05/29/19 00:00 IMPRESSION: 70- 80% stenosis of the proximal right ICA. Head MRI 05/29/19 15:17 IMPRESSION: Normal but limited due to motion. Recommend repeat when the patient is more stable. EVIDENCE OF ACUTE STROKE: NO. Chest/Abdomen CTA 05/31/19 00:00 IMPRESSION: Left lower lobe pneumonia. No PE. Chest X-Ray 06/02/19 06:00 IMPRESSION: No significant change. Assessment and Plan - Diagnosis (1) Acute metabolic encephalopathy Is this a current diagnosis for this admission?: Yes Plan: Hyperglycemia, acute kidney injury metabolic acidosis could explain her altered mental status. LP requested to rule out meningitis. Until meningitis is ruled out patient is on Rocephin and vancomycin. 05/29/2019-patient admitted with altered mental status multiple reasons one is hyperglycemia with blood sugar than 690 that once 90 with metabolic acidosis, LP was abnormal waiting for the reports. And she is also has a recent history of pontine infarct CT head was negative at this time MRI of the brain is pending. CT of the head was also requested. 05/30/2019-patient admitted with altered mental status LP was negative as per ID recommendations antibiotics and acyclovir are discontinued. Previous history of strokes. Altered mental status may be secondary to hyperglycemia and medication overdose. Psych consult is going to be requested. Patient is more alert more awake today MRI of the head was negative CT of the neck shows 60 to 80% of the blockage in the right proximal carotid artery. [id number]-lhiy-old female admitted for altered mental status most likely secondary to medication overdose. LP was done as per the ID recommendations meningitis is very unlikely. Antibiotics and acyclovir are discontinued patient is afebrile WBC count is stable. 06/01/2019-patient was admitted with altered mental status CT head is negative for acute stroke MRI is negative for acute stroke CT of the neck shows right carotid artery occlusions with 60 to 80% blockage. anoxic Encephalopathy is a possibility also. EEG was requested. 06/02/2019-discussion in multidisciplinary rounds seems to suggest that the patient had a prescription for Ambien. An empty pill bottle was found. All of the medication was missing and cannot be accounted for. It is possible that the patient ingested all of the medication. An EEG is being obtained today. I will review the results. She is opening her eyes to verbal stimulus. She does not keep them open for long. She did try to establish eye contact. In addition she did nod her head yes and no to to simple questions. We will continue to assess. (2) DKA (diabetic ketoacidoses) Qualifiers: Diabetes mellitus type: type 2 Is this a current diagnosis for this admission?: Yes Plan: Patient has hyperglycemia of 690, metabolic acidosis and anion gap. Patient has been started on insulin drip and transferred to ICU. She will be managed according to DKA protocol. 06/02/2019-patient was initially placed on continuous insulin infusion. She has since come off of the insulin. She is on Accu-Cheks and sliding scale coverage at this time. We will review home medications and resume when appropriate. (3) Acute kidney injury Is this a current diagnosis for this admission?: Yes Plan: Creatinine of 1.26. Patient has been started on normal saline at rate of 200 mm/h which will correct the acute kidney injury. 05/29/2019-patient creatinine today is 0.86 at the time of admission 1.26 ELFEGO most likely due to poor oral intake resolving. 05/30/2019-patient creatinine is 0.96 on admission is 1.26 ELFEGO most likely se condary to poor oral intake. 05/31/2019-patient came in with ELFEGO admission creatinine is 1.26 and the latest creatinine is 0.8. Acute kidney injury secondary to poor oral intake is resolved. [id number]-undt-old female came in with ELFEGO admission creatinine is 1.26 today's creatinine was 0.95 acute kidney injury is resolved. 06/02/2019-on admission the patient had minimal creatinine elevation at 1.26. It has since normalized with IV hydration. Possible etiologies include poor oral intake and the slightly elevated creatinine kinase. (4) Leukocytosis Is this a current diagnosis for this admission?: Yes Plan: We will monitor her CBC. 05/29/2019-patient admitted with elevated leukocytosis LP was abnormal waiting for the Gram stain and cell count presently on vancomycin and Zosyn started on IV acyclovir. ID consult was requested. Patient is going to be on droplet isolation. 05/30/2019-patient WBC count is 15,200 improving. Blood cultures are negative. Urine cultures are negative. LP was negative. Antibiotics are discontinued. 05/31/2019-patient's WBC count is 12,900 improving. Patient is off the antibiotics. Leukocytosis most likely reactive leukocytosis. 12/02/2018-patient came in with elevated WBC count leukocytosis resolved WBC count today is 7.3. 06/02/2019-white blood cell count is now normal. She is on dexamethasone 2 mg every 6 hours at home. No further information is obtained at this point. We will continue for the time being and investigate further when the patient is able to provide more information. (5) Rhabdomyolysis Qualifiers: Encounter type: initial encounter Is this a current diagnosis for this admission?: Yes Plan: Will be corrected with hydration. 05/29/2019-patient has rhabdomyolysis with CPK of thousand causes unknown at this point. May be history of fall we do not know. 05/30/2019-patient came in with elevated CK levels most likely secondary to muscle damage. She is on IV fluids. 05/31/2019-patient came with elevated CKs most likely secondary to fall. CK level is 1312 on half normal saline at 100 cc/h plan is to see repeat the CK levels today. 06/01/2019-patient came in with elevated CKs receiving IV fluids. latest CK is 84. 06/02/2019-resolved with IV hydration (6) Acute respiratory failure with hypoxemia Is this a current diagnosis for this admission?: Yes Plan: 06/02/2019-on May 30 the account manager forest service was called to the bedside. The patient was exhibiting increased work of breathing with increasing hypoxemia despite higher oxygen supply. The patient was intubated and placed on mechanical ventilation. She is currently on SIMV/PRVC with a rate of 16, tidal volume of 450 with 10 of pressure support and 5 of PEEP. We will try to wean as tolerated. (7) Atherosclerosis of right carotid artery Is this a current diagnosis for this admission?: Yes Plan: 06/02/2019-CT angiogram obtained earlier shows 60 to 80% stenosis of the right carotid artery. There is no evidence of stroke on imaging studies at the time of admission. She is already on statin therapy and I will initiate aspirin 81 mg daily. (8) Hypothyroidism Qualifiers: Hypothyroidism type: unspecified Qualified Code(s): E03.9 - Hypothyroidism, unspecified Is this a current diagnosis for this admission?: Yes Plan: 06/02/2019-the patient is on 200 mcg of levothyroxine daily at home. We will administer 100 mcg by IV daily until she is able to take oral medications and then change her back to her normal outpatient dosing. (9) Hypertension Qualifiers: Hypertension type: essential hypertension Qualified Code(s): I10 - Essential (primary) hypertension Is this a current diagnosis for this admission?: Yes Plan: 06/02/2019-the patient is on lisinopril 20 mg daily at home. Her blood pressures were quite elevated and in addition to the lisinopril amlodipine was added. She also has as needed medications by intravenous available. We will continue to monitor her blood pressure and adjust medications accordingly. - Time Time Spent with patient: 35 or more minutes Medications reviewed and adjusted accordingly: Yes - Plan Summary Plan Summary: Tube feeds, labs
--- NOTE | 2019-06-03 07:11 | RADIOLOGY REPORT (SQ) ---
EXAM DESCRIPTION: XR CHEST 1 VIEW COMPLETED DATE/TME: 06/03/2019 06:00 CLINICAL HISTORY: 54 years Female, Respiratory failure COMPARISON: One day prior. NUMBER OF VIEWS/TECHNIQUE: 1/AP FINDINGS: Clear lungs of adequate volume, and normal cardiac silhouette. Adequate appearing endotracheal tube. Adequate appearing enteric tube partially obscured. Adequate appearing right jugular central line. Normal cardiac silhouette size. No pneumothorax. Stable bony thorax. IMPRESSION: No significant change.
[2019-06-03] MEDS: BUDESONIDE NEB 0.5 MG/2 ML AMPUL NEB SCH ×2 (08:34→20:37)
[2019-06-03] MEDS: DEXAMETHASONE SOD PHOSPHATE INJ 4 MG/1 ML VIAL IV SCH ×2 (10:17→17:15)
[2019-06-03] MEDS: ASPIRIN 81 MG TABLET, CHEWABLE NG SCH (10:17)
[2019-06-03] MEDS: AMLODIPINE BESYLATE 10 MG TABLET PO SCH (10:17)
[2019-06-03] MEDS: MUPIROCIN CALCIUM 2% CREAM 15 GM TP SCH ×2 (10:17→17:01)
[2019-06-03] MEDS: LEVOTHYROXINE SODIUM INJ/PF 0.1 MG SDV IV SCH (10:17)
[2019-06-03] MEDS: LISINOPRIL 10 MG TABLET PO SCH (10:17)
[2019-06-03] MEDS: VANCOMYCIN HCL 750 MG in DEXTROSE 5%-WATER 250 ML IV SCH (10:18)
[2019-06-03 11:01] LABS: VANCOMYCIN,TROUGH 13.6 ug/mL (5.0-20.0)
[2019-06-03] MEDS ORDERED: BACLOFEN 10 MG TABLET PO PRN (16:37)
[2019-06-03] MEDS: LORAZEPAM INJ 2 MG/1 ML VIAL IV PRN ×2 (16:59→23:29)
[2019-06-03] MEDS: ENOXAPARIN SODIUM INJ 40 MG/0.4 ML DISP.SYRIN SUBCUT SCH (17:15)
[2019-06-03] MEDS: METFORMIN HCL 500 MG TABLET PO SCH (17:16)
--- NOTE | 2019-06-03 21:18 | PDOC PROGRESS REPORT ---
Subjective Progress Note for:: 06/03/19 Subjective:: Patient is actually awake and alert. She is mouthing words. Sometimes it is very hard to understand what she is trying to say but she is able to shake her head yes and no to answer questions. Reason For Visit: ACUTE METABOLIC ENCEPHALOPATHY. DKA Physical Exam Vital Signs: Temp Pulse Resp BP Pulse Ox 98.1 F 73 16 140/88 H 95 06/03/19 12:00 06/03/19 16:04 06/03/19 16:04 06/03/19 15:02 06/03/19 16:04 Intake & Output 06/02/19 06/03/19 06/04/19 06:59 06:59 06:59 Intake Total 2397 3110 1350 Output Total 2315 3310 675 Balance 82 -200 675 Weight 64.8 kg 64.6 kg General appearance: PRESENT: no acute distress, cooperative, well-developed Head exam: PRESENT: atraumatic, normocephalic Ear exam: PRESENT: normal external ear exam Mouth exam: PRESENT: other - Endotracheal tube and orogastric tube in place Respiratory exam: PRESENT: clear to auscultation jaqueline - Anteriorly, rales, symmetrical, unlabored, other - She would take a deep breath on command however when she was switched to CPAP she did not initiate a breath for many seconds.. ABSENT: rhonchi, tachypnea, wheezes Cardiovascular exam: PRESENT: RRR, +S1, +S2 GI/Abdominal exam: PRESENT: normal bowel sounds, soft. ABSENT: distended, guarding, tenderness Rectal exam: PRESENT: deferred Gentrourinary exam: PRESENT: indwelling catheter Extremities exam: ABSENT: joint swelling, pedal edema Musculoskeletal exam: PRESENT: normal inspection Neurological exam: PRESENT: alert, awake, oriented to person - Appears to be oriented to person. Did not try to assess further as she is intubated. Psychiatric exam: PRESENT: flat affect. ABSENT: agitated, anxious Focused psych exam: ABSENT: delusional - Does not appear to be delusional or delirious, restlessness Skin exam: PRESENT: dry, warm. ABSENT: rash Results Laboratory Results: 06/02/19 04:15 06/03/19 05:40 06/03/19 05:40 Sodium 138.4 Potassium 3.7 Chloride 110 H Carbon Dioxide 24 Anion Gap 4 L BUN 16 Creatinine 0.75 Est GFR ( Amer) > 60 Est GFR (Non-Af Amer) > 60 Glucose 210 H Calcium 8.3 L Magnesium 1.8 Albumin 2.5 L 05/31/19 10:59 Tracheal Aspirate Gram Stain - Final 05/31/19 10:59 Tracheal Aspirate Sputum Culture - Final Mrsa (Meth Resis Staph Aureus) C.albicans/C.dubliniensis Yeast, Not Earnestine Albicans Normal Jessica Absent 05/28/19 15:05 Blood Blood Culture - Final NO GROWTH IN 5 DAYS 05/28/19 14:20 Blood Blood Culture - Final NO GROWTH IN 5 DAYS 05/28/19 05/28/19 05/29/19 14:20 14:20 06:55 Creatine Kinase 414 H 1037 H CK-MB (CK-2) 6.78 H Troponin I 0.130 05/29/19 05/31/19 11:15 10:39 Creatine Kinase 1312 H 84 CK-MB (CK-2) Troponin I Impressions: Cervical Spine CT 05/28/19 14:12 IMPRESSION: No fracture or static subluxation of the cervical spine. Multilevel discectomy and fusion from C3 through C7. Head CT 05/28/19 14:12 IMPRESSION: No acute intracranial pathology. EVIDENCE OF ACUTE STROKE: NO. Head CTA 05/29/19 00:00 IMPRESSION: NO CTA EVIDENCE OF STENOSIS OR ANEURYSM OF THE [place]. Interventional Vascular Procedure 05/29/19 00:00 IMPRESSION: Ultrasound guidance for vascular access. Neck CTA 05/29/19 00:00 IMPRESSION: 70- 80% stenosis of the proximal right ICA. Head MRI 05/29/19 15:17 IMPRESSION: Normal but limited due to motion. Recommend repeat when the patient is more stable. EVIDENCE OF ACUTE STROKE: NO. Chest/Abdomen CTA 05/31/19 00:00 IMPRESSION: Left lower lobe pneumonia. No PE. Chest X-Ray 06/03/19 06:00 IMPRESSION: No significant change. Assessment and Plan - Diagnosis (1) Acute metabolic encephalopathy Is this a current diagnosis for this admission?: Yes Plan: Hyperglycemia, acute kidney injury metabolic acidosis could explain her altered mental status. LP requested to rule out meningitis. Until meningitis is ruled out patient is on Rocephin and vancomycin. 05/29/2019-patient admitted with altered mental status multiple reasons one is hyperglycemia with blood sugar than 690 that once 90 with metabolic acidosis, LP was abnormal waiting for the reports. And she is also has a recent history of pontine infarct CT head was negative at this time MRI of the brain is pending. CT of the head was also requested. 05/30/2019-patient admitted with altered mental status LP was negative as per ID recommendations antibiotics and acyclovir are discontinued. Previous history of strokes. Altered mental status may be secondary to hyperglycemia and medication overdose. Psych consult is going to be requested. Patient is more alert more awake today MRI of the head was negative CT of the neck shows 60 to 80% of the blockage in the right proximal carotid artery. [id number]-[id number]-old female admitted for altered mental status most likely secondary to medication overdose. LP was done as per the ID recommendations meningitis is very unlikely. Antibiotics and acyclovir are discontinued patient is afebrile WBC count is stable. 06/01/2019-patient was admitted with altered mental status CT head is negative for acute stroke MRI is negative for acute stroke CT of the neck shows right carotid artery occlusions with 60 to 80% blockage. anoxic Encephalopathy is a possibility also. EEG was requested. 06/02/2019-discussion in multidisciplinary rounds seems to suggest that the patient had a prescription for Ambien. An empty pill bottle was found. All of the medication was missing and cannot be accounted for. It is possible that the patient ingested all of the medication. An EEG is being obtained today. I will review the results. She is opening her eyes to verbal stimulus. She does not keep them open for long. She did try to establish eye contact. In addition she did nod her head yes and no to to simple questions. We will continue to assess. 06/03/2019-the patient in fact was opening her eyes. She appeared to understand everything I was saying. She did try to answer questions. With the endotracheal tube in place it was difficult to interpret mouthing words. She was able to shake her head yes and no. The encephalopathy appears to have cleared. (2) DKA (diabetic ketoacidoses) Qualifiers: Diabetes mellitus type: type 2 Is this a current diagnosis for this admission?: Yes Plan: Patient has hyperglycemia of 690, metabolic acidosis and anion gap. Patient has been started on insulin drip and transferred to ICU. She will be managed according to DKA protocol. 06/02/2019-patient was initially placed on continuous insulin infusion. She has since come off of the insulin. She is on Accu-Cheks and sliding scale coverage at this time. We will review home medications and resume when appropriate. 06/03/2019-she is currently on sliding scale. I will resume her metformin as her Accu-Cheks very widely. I will review her sliding scale requirements and consider long-acting insulin. (3) Acute kidney injury Is this a current diagnosis for this admission?: Yes Plan: Creatinine of 1.26. Patient has been started on normal saline at rate of 200 mm/h which will correct the acute kidney injury. 05/29/2019-patient creatinine today is 0.86 at the time of admission 1.26 ELFEGO most likely due to poor oral intake resolving. 05/30/2019-patient creatinine is 0.96 on admission is 1.26 ELFEGO most likely secondary to poor oral intake. 05/31/2019-patient came in with ELFEGO admission creatinine is 1.26 and the latest creatinine is 0.8. Acute kidney injury secondary to poor oral intake is resolved. 06/[id number]-udvs-old female came in with ELFEGO admission creatinine is 1.26 today's creatinine was 0.95 acute kidney injury is resolved. 06/02/2019-on admission the patient had minimal creatinine elevation at 1.26. It has since normalized with IV hydration. Possible etiologies include poor oral intake and the slightly elevated creatinine kinase. 06/03/2019-resolved (4) Leukocytosis Is this a current diagnosis for this admission?: Yes Plan: We will monitor her CBC. 05/29/2019-patient admitted with elevated leukocytosis LP was abnormal waiting for the Gram stain and cell count presently on vancomycin and Zosyn started on IV acyclovir. ID consult was requested. Patient is going to be on droplet isolation. 05/30/2019-patient WBC count is 15,200 improving. Blood cultures are negative. Urine cultures are negative. LP was negative. Antibiotics are discontinued. 05/31/2019-patient's WBC count is 12,900 improving. Patient is off the antibiotics. Leukocytosis most likely reactive leukocytosis. 12/02/2018-patient came in with elevated WBC count leukocytosis resolved WBC count today is 7.3. 06/02/2019-white blood cell count is now normal. She is on dexamethasone 2 mg every 6 hours at home. No further information is obtained at this point. We will continue for the time being and investigate further when the patient is able to provide more information. 06/03/2019-white blood cell count is now normal (5) Rhabdomyolysis Qualifiers: Encounter type: initial encounter Is this a current diagnosis for this admission?: Yes Plan: Will be corrected with hydration. 05/29/2019-patient has rhabdomyolysis with CPK of thousand causes unknown at this point. May be history of fall we do not know. 05/30/2019-patient came in with elevated CK levels most likely secondary to muscle damage. She is on IV fluids. 05/31/2019-patient came with elevated CKs most likely secondary to fall. CK level is 1312 on half normal saline at 100 cc/h plan is to see repeat the CK levels today. 06/01/2019-patient came in with elevated CKs receiving IV fluids. latest CK is 84. 06/02/2019-resolved with IV hydration As above (6) Acute respiratory failure with hypoxemia Is this a current diagnosis for this admission?: Yes Plan: 06/02/2019-on May 30 the distribution technician was called to the bedside. The patient was exhibiting increased work of breathing with increasing hypoxemia despite higher oxygen supply. The patient was intubated and placed on mechanical ventilation. She is currently on SIMV/PRVC with a rate of 16, tidal volume of 450 with 10 of pressure support and 5 of PEEP. We will try to wean as tolerated. 06/03/2019-the patient is wide awake and responding to questions. We placed her on pressure support and she went for many seconds without initiating of breath. On command she can take a deep breath. We will continue to wean as tolerated. (7) Atherosclerosis of right carotid artery Is this a current diagnosis for this admission?: Yes Plan: 06/02/2019-CT angiogram obtained earlier shows 60 to 80% stenosis of the right carotid artery. There is no evidence of stroke on imaging studies at the time of admission. She is already on statin therapy and I will initiate aspirin 81 mg daily. 06/03/2019-continue statin therapy as well as aspirin. (8) Hypothyroidism Qualifiers: Hypothyroidism type: unspecified Qualified Code(s): E03.9 - Hypothyroidism, unspecified Is this a current diagnosis for this admission?: Yes Plan: 06/02/2019-the patient is on 200 mcg of levothyroxine daily at home. We will administer 100 mcg by IV daily until she is able to take oral medications and then change her back to her normal outpatient dosing. 06/03/2019-I will change the patient back to her 200 mcg of levothyroxine and will administer per NG tube for the time being. (9) Hypertension Qualifiers: Hypertension type: essential hypertension Qualified Code(s): I10 - Essential (primary) hypertension Is this a current diagnosis for this admission?: Yes Plan: 06/02/2019-the patient is on lisinopril 20 mg daily at home. Her blood pressures were quite elevated and in addition to the lisinopril amlodipine was added. She also has as needed medications by intravenous available. We will continue to monitor her blood pressure and adjust medications accordingly. 06/03/2019-her blood pressures are still quite variable. She now is on li sinopril and amlodipine. I will monitor closely and consider medication alterations based on her response to the current medication regimen. - Time Time Spent with patient: 35 or more minutes Medications reviewed and adjusted accordingly: Yes
[2019-06-03] MEDS: QUETIAPINE FUMARATE 100 MG TABLET PO SCH (21:30)
[2019-06-03] MEDS: ATORVASTATIN CALCIUM 10 MG TABLET PO SCH (21:30)
[2019-06-03] MEDS: VANCOMYCIN HCL 1,000 MG in DEXTROSE 5%-WATER 250 ML IV SCH (21:30)
[2019-06-04] MEDS: CHLORPROMAZINE HCL INJ 25 MG/1 ML AMPULE IV SCH ×3 (01:44→18:37)
[2019-06-04] MEDS: PROPOFOL 1,000 MG/100 ML INFUS..BTL IV PRN ×3 (03:53→21:33)
[2019-06-04] MEDS: 1/2 NORMAL SALINE 1,000 ML IV PRN ×2 (04:38→16:49)
[2019-06-04] MEDS: INSULIN LISPRO 100 UNIT/ML 3 ML VIAL SUBCUT SCH ×4 (05:39→23:22)
[2019-06-04] MEDS: LEVOTHYROXINE SODIUM 0.1 MG TABLET NG SCH (05:39)
[2019-06-04 05:40] LABS: ABSOLUTE BASOPHILS # (AUTO) 0.1 10^3/uL (0.0-0.2); ABSOLUTE MONOCYTES (AUTO) 0.7 10^3/uL (0.1-1.4); ABSOLUTE NEUT (AUTO) 6.7 10^3/uL (1.7-8.2); ARTERIAL BLOOD BASE EXCESS -0.6 mmol/L; ARTERIAL BLOOD H2CO3 0.86 mmol/L (1.05-1.35); ARTERIAL BLOOD HCO3 21.7 mmol/L (20-24); ARTERIAL BLOOD O2 SATURATION 97.4 % (94-98); ARTERIAL BLOOD PCO2 28.5 mmHg (35-45); ARTERIAL BLOOD PO2 87.4 mmHg (80-100); ARTERIAL BLOOD TOTAL CO2 22.6 mmol/L (21-25); EOSINOPHILS % (AUTO) 0.1 % (0-6); HEMOGLOBIN 10.6 g/dL (12.0-15.5); LYMPHOCYTES % (AUTO) 20.8 % (13-45); MEAN CORPUSCULAR HEMOGLOBIN 29.4 pg (27.0-33.4); MEAN CORPUSCULAR VOLUME 87 fl (80-97); MONOCYTES % (AUTO) 7.5 % (3-13); PLATELET COUNT 233 10^3/uL (150-450); RED BLOOD COUNT 3.59 10^6/uL (3.72-5.28); RED CELL DISTRIBUTION WIDTH 15.2 % (11.5-14.0); SEGMENTED NEUTROPHILS % (AUTO) 70.6 % (42-78); TOTAL CELLS COUNTED % (AUTO) 100 %; WHITE BLOOD COUNT 9.5 10^3/uL (4.0-10.5)
[2019-06-04 05:54] LABS: ARTERIAL BLOOD FIO2 25%
[2019-06-04 06:02] LABS: ALBUMIN 2.3 g/dL (3.5-5.0); ANION GAP 8 (5-19); BLOOD UREA NITROGEN 15 mg/dL (7-20); CALCIUM 8.2 mg/dL (8.4-10.2); CARBON DIOXIDE 22 mmol/L (22-30); CHLORIDE 110 mmol/L (98-107); GLUCOSE 169 mg/dL (75-110); POTASSIUM 3.6 mmol/L (3.6-5.0)
[2019-06-04] MEDS: IPRATROPIUM BROMIDE 0.02% NEB 0.5 MG/2.5 ML AMPUL NEB SCH ×3 (08:26→23:58)
[2019-06-04] MEDS: BUDESONIDE NEB 0.5 MG/2 ML AMPUL NEB SCH ×2 (08:26→20:09)
[2019-06-04] MEDS: LEVALBUTEROL HCL NEB 1.25 MG/3 ML AMPUL NEB SCH ×3 (08:26→23:58)
[2019-06-04] MEDS: METFORMIN HCL 500 MG TABLET PO SCH ×2 (11:01→18:11)
[2019-06-04] MEDS: LISINOPRIL 10 MG TABLET PO SCH (11:01)
[2019-06-04] MEDS: VANCOMYCIN HCL 1,000 MG in DEXTROSE 5%-WATER 250 ML IV SCH ×2 (11:02→21:32)
[2019-06-04] MEDS: AMLODIPINE BESYLATE 10 MG TABLET PO SCH (11:02)
[2019-06-04] MEDS: ASPIRIN 81 MG TABLET, CHEWABLE NG SCH (11:02)
[2019-06-04] MEDS: DEXAMETHASONE SOD PHOSPHATE INJ 4 MG/1 ML VIAL IV SCH ×3 (11:03→20:50)
[2019-06-04] MEDS: MUPIROCIN CALCIUM 2% CREAM 15 GM TP SCH ×2 (11:16→18:42)
[2019-06-04] MEDS: LORAZEPAM INJ 2 MG/1 ML VIAL IV PRN ×2 (16:55→21:45)
[2019-06-04] MEDS: ENOXAPARIN SODIUM INJ 40 MG/0.4 ML DISP.SYRIN SUBCUT SCH (18:11)
--- NOTE | 2019-06-04 19:48 | PDOC PROGRESS REPORT ---
Subjective Progress Note for:: 06/04/19 Subjective:: Patient awake and alert. There is a problem with the suction system for the ET tube and this will be replaced. Right now she sounds very congested. Reason For Visit: ACUTE METABOLIC ENCEPHALOPATHY. DKA Physical Exam Vital Signs: Temp Pulse Resp BP Pulse Ox 99.0 F 58 L 16 121/70 97 06/04/19 12:00 06/04/19 14:00 06/04/19 14:02 06/04/19 14:02 06/04/19 14:02 Intake & Output 06/03/19 06/04/19 06/05/19 06:59 06:59 06:59 Intake Total 3110 3500 65 Output Total 3310 1880 1000 Balance -200 1620 -935 Weight 64.6 kg 64.8 kg General appearance: PRESENT: cooperative, mild distress, well-developed Head exam: PRESENT: atraumatic, normocephalic Eye exam: PRESENT: conjunctiva pale. ABSENT: scleral icterus Ear exam: PRESENT: normal external ear exam Mouth exam: PRESENT: dry mucosa, other - Endotracheal tube in place Respiratory exam: PRESENT: symmetrical, unlabored. ABSENT: accessory muscle use, clear to auscultation jaqueline - Very congested breath sounds bilaterally, rales, rhonchi, tachypnea, wheezes Cardiovascular exam: PRESENT: RRR, +S1, +S2 GI/Abdominal exam: PRESENT: normal bowel sounds, soft. ABSENT: distended, tenderness Rectal exam: PRESENT: deferred Gentrourinary exam: PRESENT: indwelling catheter Extremities exam: ABSENT: pedal edema Neurological exam: PRESENT: alert, awake, oriented to person Psychiatric exam: PRESENT: flat affect. ABSENT: agitated, anxious Focused psych exam: ABSENT: restlessness Results Laboratory Results: 06/04/19 05:20 06/04/19 05:20 06/04/19 06/04/19 06/04/19 05:20 05:20 05:20 WBC 9.5 RBC 3.59 L Hgb 10.6 L Hct 31.0 L MCV 87 MCH 29.4 MCHC 34.0 RDW 15.2 H Plt Count 233 Seg Neutrophils % 70.6 Lymphocytes % 20.8 Monocytes % 7.5 Eosinophils % 0.1 Basophils % 1.0 Absolute Neutrophils 6.7 Absolute Lymphocytes 2.0 Absolute Monocytes 0.7 Absolute Eosinophils 0.0 Absolute Basophils 0.1 Carbonic Acid 0.86 L HCO3/H2CO3 Ratio 25:1 ABG pH 7.50 H ABG pCO2 28.5 L ABG pO2 87.4 ABG HCO3 21.7 ABG O2 Saturation 97.4 ABG Base Excess -0.6 FiO2 25% Sodium 139.8 Potassium 3.6 Chloride 110 H Carbon Dioxide 22 Anion Gap 8 BUN 15 Creatinine 0.67 Est GFR ( Amer) > 60 Est GFR (Non-Af Amer) > 60 Glucose 169 H Calcium 8.2 L Magnesium 1.7 Albumin 2.3 L 05/28/19 05/28/19 05/29/19 14:20 14:20 06:55 Creatine Kinase 414 H 1037 H CK-MB (CK-2) 6.78 H Troponin I 0.130 05/29/19 05/31/19 11:15 10:39 Creatine Kinase 1312 H 84 CK-MB (CK-2) Troponin I Impressions: Cervical Spine CT 05/28/19 14:12 IMPRESSION: No fracture or static subluxation of the cervical spine. Multilevel discectomy and fusion from C3 through C7. Head CT 05/28/19 14:12 IMPRESSION: No acute intracranial pathology. EVIDENCE OF ACUTE STROKE: NO. Head CTA 05/29/19 00:00 IMPRESSION: NO CTA EVIDENCE OF STENOSIS OR ANEURYSM OF THE ELEM OF SANDERS. Interventional Vascular Procedure 05/29/19 00:00 IMPRESSION: Ultrasound guidance for vascular access. Neck CTA 05/29/19 00:00 IMPRESSION: 70- 80% stenosis of the proximal right ICA. Head MRI 05/29/19 15:17 IMPRESSION: Normal but limited due to motion. Recommend repeat when the patient is more stable. EVIDENCE OF ACUTE STROKE: NO. Chest/Abdomen CTA 05/31/19 00:00 IMPRESSION: Left lower lobe pneumonia. No PE. Chest X-Ray 06/03/19 06:00 IMPRESSION: No significant change. Assessment and Plan - Diagnosis (1) Acute metabolic encephalopathy Is this a current diagnosis for this admission?: Yes Plan: Hyperglycemia, acute kidney injury metabolic acidosis could explain her altered mental status. LP requested to rule out meningitis. Until meningitis is ruled out patient is on Rocephin and vancomycin. 05/29/2019-patient admitted with altered mental status multiple reasons one is hyperglycemia with blood sugar than 690 that once 90 with metabolic acidosis, LP was abnormal waiting for the reports. And she is also has a recent history of pontine infarct CT head was negative at this time MRI of the brain is pending. CT of the head was also requested. 05/30/2019-patient admitted with altered mental status LP was negative as per ID recommendations antibiotics and acyclovir are discontinued. Previous history of strokes. Altered mental status may be secondary to hyperglycemia and medication overdose. Psych consult is going to be requested. Patient is more alert more awake today MRI of the head was negative CT of the neck shows 60 to 80% of the blockage in the right proximal carotid artery. [id number]-old female admitted for altered mental status most likely secondary to medication overdose. LP was done as per the ID recommendations meningitis is very unlikely. Antibiotics and acyclovir are discontinued patient is afebrile WBC count is stable. 06/01/2019-patient was admitted with altered mental status CT head is negative for acute stroke MRI is negative for acute stroke CT of the neck shows right carotid artery occlusions with 60 to 80% blockage. anoxic Encephalopathy is a possibility also. EEG was requested. 06/02/2019-discussion in multidisciplinary rounds seems to suggest that the patient had a prescription for Ambien. An empty pill bottle was found. All of the medication was missing and cannot be accounted for. It is possible that the patient ingested all of the medication. An EEG is being obtained today. I will review the results. She is opening her eyes to verbal stimulus. She does not keep them open for long. She did try to establish eye contact. In addition she did nod her head yes and no to to simple questions. We will continue to assess. 06/03/2019-the patient in fact was opening her eyes. She appeared to understand everything I was saying. She did try to answer questions. With the e ndotracheal tube in place it was difficult to interpret mouthing words. She was able to shake her head yes and no. The encephalopathy appears to have cleared. 06/04/2019-patient was quite alert today. She is tried to mouth words to respond to questions. Breath sounds are quite congested and she would cough intermittently but they are replacing her endotracheal suction device. The encephalopathy appears to have cleared but we have not been able to engage in a true conversation. Once she is extubated we should be able to evaluate further. Psychiatry is also waiting to see the patient. (2) DKA (diabetic ketoacidoses) Qualifiers: Diabetes mellitus type: type 2 Is this a current diagnosis for this admission?: Yes Plan: Patient has hyperglycemia of 690, metabolic acidosis and anion gap. Patient has been started on insulin drip and transferred to ICU. She will be managed according to DKA protocol. 06/02/2019-patient was initially placed on continuous insulin infusion. She has since come off of the insulin. She is on Accu-Cheks and sliding scale coverage at this time. We will review home medications and resume when appropriate. 06/03/2019-she is currently on sliding scale. I will resume her metformin as her Accu-Cheks vary widely. I will review her sliding scale requirements and consider long-acting insulin. 06/04/2019-she is back on metformin in addition to the insulin sliding scale. Will make adjustments based on the sliding scale requirements. (3) Acute kidney injury Is this a current diagnosis for this admission?: Yes Plan: Creatinine of 1.26. Patient has been started on normal saline at rate of 200 mm/h which will correct the acute kidney injury. 05/29/2019-patient creatinine today is 0.86 at the time of admission 1.26 ELFEGO most likely due to poor oral intake resolving. 05/30/2019-patient creatinine is 0.96 on admission is 1.26 ELFEGO most likely secondary to poor oral intake. 05/31/2019-patient came in with ELFEGO admission creatinine is 1.26 and the latest creatinine is 0.8. Acute kidney injury secondary to poor oral intake is resolved. 06/[id number]-old female came in with ELFEGO admission creatinine is 1.26 today's creatinine was 0.95 acute kidney injury is resolved. 06/02/2019-on admission the patient had minimal creatinine elevation at 1.26. It has since normalized with IV hydration. Possible etiologies include poor oral intake and the slightly elevated creatinine kinase. 06/03/2019-resolved (4) Leukocytosis Is this a current diagnosis for this admission?: Yes Plan: We will monitor her CBC. 05/29/2019-patient admitted with elevated leukocytosis LP was abnormal waiting for the Gram stain and cell count presently on vancomycin and Zosyn started on IV acyclovir. ID consult was requested. Patient is going to be on droplet isolation. 05/30/2019-patient WBC count is 15,200 improving. Blood cultures are negative. Urine cultures are negative. LP was negative. Antibiotics are discontinued. 05/31/2019-patient's WBC count is 12,900 improving. Patient is off the antibiotics. Leukocytosis most likely reactive leukocytosis. 12/02/2018-patient came in with elevated WBC count leukocytosis resolved WBC cou nt today is 7.3. 06/02/2019-white blood cell count is now normal. She is on dexamethasone 2 mg every 6 hours at home. No further information is obtained at this point. We will continue for the time being and investigate further when the patient is able to provide more information. 06/03/2019-white blood cell count is now normal 06/04/2019-resolved (5) Rhabdomyolysis Qualifiers: Encounter type: initial encounter Is this a current diagnosis for this admission?: Yes Plan: Will be corrected with hydration. 05/29/2019-patient has rhabdomyolysis with CPK of thousand causes unknown at this point. May be history of fall we do not know. 05/30/2019-patient came in with elevated CK levels most likely secondary to muscle damage. She is on IV fluids. 05/31/2019-patient came with elevated CKs most likely secondary to fall. CK level is 1312 on half normal saline at 100 cc/h plan is to see repeat the CK levels today. 06/01/2019-patient came in with elevated CKs receiving IV fluids. latest CK is 84. 06/02/2019-resolved with IV hydration As above (6) Acute respiratory failure with hypoxemia Is this a current diagnosis for this admission?: Yes Plan: 06/02/2019-on May 30 the supervising floorperson was called to the bedside. The patient was exhibiting increased work of breathing with increasing hypoxemia despite higher oxygen supply. The patient was intubated and placed on mechanical ventilation. She is currently on SIMV/PRVC with a rate of 16, tidal volume of 450 with 10 of pressure support and 5 of PEEP. We will try to wean as tolerated. 06/03/2019-the patient is wide awake and responding to questions. We placed her on pressure support and she went for many seconds without initiating of breath. On command she can take a deep breath. We will continue to wean as tolerated. 06/04/2019-we did perform a spontaneous pressure support trial this afternoon. I asked the patient to take several deep breaths. She then began to breathe spontaneously without prompting. We will continue his pressure support trial this afternoon and again in the morning. If he does well then consider extubation. (7) Atherosclerosis of right carotid artery Is this a current diagnosis for this admission?: Yes Plan: 06/02/2019-CT angiogram obtained earlier shows 60 to 80% stenosis of the right carotid artery. There is no evidence of stroke on imaging studies at the time of admission. She is already on statin therapy and I will initiate aspirin 81 mg daily. 06/03/2019-continue statin therapy as well as aspirin. 06/04/2019-continue current medication regimen. No other intervention at this time. (8) Hypothyroidism Qualifiers: Hypothyroidism type: unspecified Qualified Code(s): E03.9 - Hypothyroidism, unspecified Is this a current diagnosis for this admission?: Yes Plan: 06/02/2019-the patient is on 200 mcg of levothyroxine daily at home. We will administer 100 mcg by IV daily until she is able to take oral medications and then change her back to her normal outpatient dosing. 06/03/2019-I will change the patient back to her 200 mcg of levothyroxine and will administer per NG tube for the time being. 06/04/2019-she is back on 200 mcg of levothyroxine per the nasogastric tube. (9) Hypertension Qualifiers: Hypertension type: essential hypertension Qualified Code(s): I10 - Essential (primary) hypertension Is this a current diagnosis for this admission?: Yes Plan: 06/02/2019-the patient is on lisinopril 20 mg daily at home. Her blood pressures were quite elevated and in addition to the lisinopril amlodipine was added. She also has as needed medications by intravenous available. We will continue to monitor her blood pressure and adjust medications accordingly. 06/03/2019-her blood pressures are still quite variable. She now is on lisinopril and amlodipine. I will monitor closely and consider medication alterations based on her response to the current medication regimen. 06/04/2019-good blood pressure control at this time. No changes in her regimen unless prompted by elevated readings. - Time Time Spent with patient: 25-34 minutes Medications reviewed and adjusted accordingly: Yes
[2019-06-04] MEDS: LEVALBUTEROL HCL NEB 0.63 MG/3 ML AMPUL NEB PRN (20:09)
[2019-06-04] MEDS: ATORVASTATIN CALCIUM 10 MG TABLET PO SCH (21:33)
[2019-06-04] MEDS: QUETIAPINE FUMARATE 100 MG TABLET PO SCH (21:33)
[2019-06-04] MEDS: DEXAMETHASONE 4 MG TABLET NG SCH (23:22)
[2019-06-05] MEDS: CHLORPROMAZINE HCL INJ 25 MG/1 ML AMPULE IV SCH ×3 (01:39→17:03)
[2019-06-05 03:54] LABS: ABSOLUTE BASOPHILS # (AUTO) 0.1 10^3/uL (0.0-0.2); ABSOLUTE LYMPHOCYTES (AUTO) 1.3 10^3/uL (0.5-4.7); ABSOLUTE MONOCYTES (AUTO) 0.8 10^3/uL (0.1-1.4); ABSOLUTE NEUT (AUTO) 7.9 10^3/uL (1.7-8.2); BASOPHILS % (AUTO) 0.8 % (0-2); EOSINOPHILS % (AUTO) 0.3 % (0-6); HEMATOCRIT 32.5 % (36.0-47.0); HEMOGLOBIN 10.9 g/dL (12.0-15.5); LYMPHOCYTES % (AUTO) 12.7 % (13-45); MEAN CORPUSCULAR HEMOGLOBIN 29.1 pg (27.0-33.4); MEAN CORPUSCULAR HGB CONC 33.5 g/dL (32.0-36.0); MEAN CORPUSCULAR VOLUME 87 fl (80-97); PLATELET COUNT 279 10^3/uL (150-450); RED BLOOD COUNT 3.74 10^6/uL (3.72-5.28); RED CELL DISTRIBUTION WIDTH 15.4 % (11.5-14.0); SEGMENTED NEUTROPHILS % (AUTO) 78.2 % (42-78); TOTAL CELLS COUNTED % (AUTO) 100 %
[2019-06-05 04:00] LABS: ARTERIAL BLOOD BASE EXCESS -4.3 mmol/L; ARTERIAL BLOOD H2CO3 0.79 mmol/L (1.05-1.35); ARTERIAL BLOOD HCO3 18.3 mmol/L (20-24); ARTERIAL BLOOD O2 SATURATION 97.2 % (94-98); ARTERIAL BLOOD PCO2 26.4 mmHg (35-45); ARTERIAL BLOOD PH 7.46 (7.35-7.45); ARTERIAL BLOOD PO2 87.2 mmHg (80-100); ARTERIAL BLOOD TOTAL CO2 19.1 mmol/L (21-25)
[2019-06-05 04:04] LABS: ARTERIAL BLOOD FIO2 25%
[2019-06-05 04:19] LABS: ANION GAP 5 (5-19); BLOOD UREA NITROGEN 13 mg/dL (7-20); CALCIUM 8.7 mg/dL (8.4-10.2); CARBON DIOXIDE 23 mmol/L (22-30); CHLORIDE 112 mmol/L (98-107); GLUCOSE 167 mg/dL (75-110)
[2019-06-05] MEDS: INSULIN LISPRO 100 UNIT/ML 3 ML VIAL SUBCUT SCH ×4 (05:18→23:57)
[2019-06-05] MEDS: LEVOTHYROXINE SODIUM 0.1 MG TABLET NG SCH (05:18)
[2019-06-05] MEDS: DEXAMETHASONE 4 MG TABLET NG SCH ×4 (05:18→23:58)
[2019-06-05] MEDS: PROPOFOL 1,000 MG/100 ML INFUS..BTL IV PRN ×4 (05:19→23:57)
[2019-06-05] MEDS: 1/2 NORMAL SALINE 1,000 ML IV PRN ×2 (05:49→16:00)
[2019-06-05] MEDS: IPRATROPIUM BROMIDE 0.02% NEB 0.5 MG/2.5 ML AMPUL NEB SCH ×2 (08:47→16:04)
[2019-06-05] MEDS: BUDESONIDE NEB 0.5 MG/2 ML AMPUL NEB SCH ×2 (08:47→20:31)
[2019-06-05] MEDS: LEVALBUTEROL HCL NEB 1.25 MG/3 ML AMPUL NEB SCH ×2 (08:47→16:04)
[2019-06-05] MEDS: METFORMIN HCL 500 MG TABLET PO SCH ×2 (11:57→17:03)
[2019-06-05] MEDS: AMLODIPINE BESYLATE 10 MG TABLET PO SCH (11:57)
[2019-06-05] MEDS: LISINOPRIL 10 MG TABLET PO SCH (11:57)
[2019-06-05] MEDS: VANCOMYCIN HCL 1,000 MG in DEXTROSE 5%-WATER 250 ML IV SCH ×2 (11:57→20:59)
[2019-06-05] MEDS: MUPIROCIN CALCIUM 2% CREAM 15 GM TP SCH ×2 (11:57→17:04)
[2019-06-05] MEDS: ASPIRIN 81 MG TABLET, CHEWABLE NG SCH (11:58)
[2019-06-05] MEDS: ENOXAPARIN SODIUM INJ 40 MG/0.4 ML DISP.SYRIN SUBCUT SCH (17:03)
--- NOTE | 2019-06-05 20:24 | PDOC PROGRESS REPORT ---
Subjective Progress Note for:: 06/05/19 Subjective:: The patient is restless. She has slid down in the bed. She has caused a kink in her endotracheal tube. She may have aspirated tube feed by squirming and repositioning herself in the bed. Reason For Visit: ACUTE METABOLIC ENCEPHALOPATHY. DKA Physical Exam Vital Signs: Temp Pulse Resp BP Pulse Ox 98.1 F 73 16 117/68 96 06/05/19 18:00 06/05/19 18:00 06/05/19 18:03 06/05/19 18:03 06/05/19 18:03 Intake & Output 06/04/19 06/05/19 06/06/19 06:59 06:59 06:59 Intake Total 3500 3092 1722 Output Total 1880 2975 1940 Balance 1620 117 -218 Weight 64.8 kg 61.2 kg General appearance: PRESENT: mild distress, thin, well-developed Head exam: PRESENT: atraumatic, normocephalic Mouth exam: PRESENT: other - Endotracheal tube in place Throat exam: PRESENT: other - Saliva with bits of ignacio liquid reflux in the back into her mouth Respiratory exam: PRESENT: rhonchi - On the right, symmetrical. ABSENT: rales, tachypnea, wheezes Cardiovascular exam: PRESENT: RRR, +S1, +S2 GI/Abdominal exam: PRESENT: normal bowel sounds, soft. ABSENT: distended, tenderness Rectal exam: PRESENT: deferred Gentrourinary exam: PRESENT: indwelling catheter Extremities exam: ABSENT: pedal edema Musculoskeletal exam: PRESENT: normal inspection. ABSENT: deformity Neurological exam: PRESENT: alert, awake, oriented to person. ABSENT: oriented to place Psychiatric exam: PRESENT: agitated. ABSENT: anxious Focused psych exam: PRESENT: restlessness Results Laboratory Results: 06/05/19 03:41 06/05/19 03:41 06/05/19 06/05/19 06/05/19 03:41 03:41 03:41 WBC 10.0 RBC 3.74 Hgb 10.9 L Hct 32.5 L MCV 87 MCH 29.1 MCHC 33.5 RDW 15.4 H Plt Count 279 Seg Neutrophils % 78.2 H Lymphocytes % 12.7 L Monocytes % 8.0 Eosinophils % 0.3 Basophils % 0.8 Absolute Neutrophils 7.9 Absolute Lymphocytes 1.3 Absolute Monocytes 0.8 Absolute Eosinophils 0.0 Absolute Basophils 0.1 Carbonic Acid 0.79 L HCO3/H2CO3 Ratio 23:1 ABG pH 7.46 H ABG pCO2 26.4 L ABG pO2 87.2 ABG HCO3 18.3 L ABG O2 Saturation 97.2 ABG Base Excess -4.3 FiO2 25% Sodium 139.6 Potassium 4.0 Chloride 112 H Carbon Dioxide 23 Anion Gap 5 BUN 13 Creatinine 0.72 Est GFR ( Amer) > 60 Est GFR (Non-Af Amer) > 60 Glucose 167 H Calcium 8.7 Magnesium 1.7 05/28/19 05/28/19 05/29/19 14:20 14:20 06:55 Creatine Kinase 414 H 1037 H CK-MB (CK-2) 6.78 H Troponin I 0.130 05/29/19 05/31/19 11:15 10:39 Creatine Kinase 1312 H 84 CK-MB (CK-2) Troponin I Impressions: Cervical Spine CT 05/28/19 14:12 IMPRESSION: No fracture or static subluxation of the cervical spine. Multilevel discectomy and fusion from C3 through C7. Head CT 05/28/19 14:12 IMPRESSION: No acute intracranial pathology. EVIDENCE OF ACUTE STROKE: NO. Head CTA 05/29/19 00:00 IMPRESSION: NO CTA EVIDENCE OF STENOSIS OR ANEURYSM OF THE [place] OF S[place]. Interventional Vascular Procedure 05/29/19 00:00 IMPRESSION: Ultrasound guidance for vascular access. Neck CTA 05/29/19 00:00 IMPRESSION: 70- 80% stenosis of the proximal right ICA. Head MRI 05/29/19 15:17 IMPRESSION: Normal but limited due to motion. Recommend repeat when the patient is more stable. EVIDENCE OF ACUTE STROKE: NO. Chest/Abdomen CTA 05/31/19 00:00 IMPRESSION: Left lower lobe pneumonia. No PE. Chest X-Ray 06/03/19 06:00 IMPRESSION: No significant change. Assessment and Plan - Diagnosis (1) Acute metabolic encephalopathy Is this a current diagnosis for this admission?: Yes Plan: Hyperglycemia, acute kidney injury metabolic acidosis could explain her altered mental status. LP requested to rule out meningitis. Until meningitis is ruled out patient is on Rocephin and vancomycin. 05/29/2019-patient admitted with altered mental status multiple reasons one is hyperglycemia with blood sugar than 690 that once 90 with metabolic acidosis, LP was abnormal waiting for the reports. And she is also has a recent history of pontine infarct CT head was negative at this time MRI of the brain is pending. CT of the head was also requested. 05/30/2019-patient admitted with altered mental status LP was negative as per ID recommendations antibiotics and acyclovir are discontinued. Previous history of strokes. Altered mental status may be secondary to hyperglycemia and medication overdose. Psych consult is going to be requested. Patient is more alert more awake today MRI of the head was negative CT of the neck shows 60 to 80% of the blockage in the right proximal carotid artery. 05/31/[id number]-inrp-old female admitted for altered mental status most likely secondary to medication overdose. LP was done as per the ID recommendations meningitis is very unlikely. Antibiotics and acyclovir are discontinued patient is afebrile WBC count is stable. 06/01/2019-patient was admitted with altered mental status CT head is negative for acute stroke MRI is negative for acute stroke CT of the neck shows right carotid artery occlusions with 60 to 80% blockage. anoxic Encephalopathy is a possibility also. EEG was requested. 06/02/2019-discussion in multidisciplinary rounds seems to suggest that the patient had a prescription for Ambien. An empty pill bottle was found. All of the medication was missing and cannot be accounted for. It is possible that the patient ingested all of the medication. An EEG is being obtained today. I will review the results. She is opening her eyes to verbal stimulus. She does not keep them open for long. She did try to establish eye contact. In addition she did nod her head yes and no to to simple questions. We will continue to assess. 06/03/2019-the patient in fact was opening her eyes. She appeared to understand everything I was saying. She did try to answer questions. With the endotrache al tube in place it was difficult to interpret mouthing words. She was able to shake her head yes and no. The encephalopathy appears to have cleared. 06/04/2019-patient was quite alert today. She is tried to mouth words to respond to questions. Breath sounds are quite congested and she would cough intermittently but they are replacing her endotracheal suction device. The encephalopathy appears to have cleared but we have not been able to engage in a true conversation. Once she is extubated we should be able to evaluate further. Psychiatry is also waiting to see the patient. 06/05/2019-patient is alert but somewhat agitated today. She is quite restless. Still impossible to assess mental state while intubated (2) DKA (diabetic ketoacidoses) Qualifiers: Diabetes mellitus type: type 2 Is this a current diagnosis for this admission?: Yes Plan: Patient has hyperglycemia of 690, metabolic acidosis and anion gap. Patient has been started on insulin drip and transferred to ICU. She will be managed according to DKA protocol. 06/02/2019-patient was initially placed on continuous insulin infusion. She has since come off of the insulin. She is on Accu-Cheks and sliding scale coverage at this time. We will review home medications and resume when appropriate. 06/03/2019-she is currently on sliding scale. I will resume her metformin as her Accu-Cheks vary widely. I will review her sliding scale requirements and consider long-acting insulin. 06/04/2019-she is back on metformin in addition to the insulin sliding scale. Will make adjustments based on the sliding scale requirements. 06/05/2019-continue to monitor Accu-Cheks now on metformin and still on sliding scale (3) Acute kidney injury Is this a current diagnosis for this admission?: Yes Plan: Creatinine of 1.26. Patient has been started on normal saline at rate of 200 mm/h which will correct the acute kidney injury. 05/29/2019-patient creatinine today is 0.86 at the time of admission 1.26 ELFEGO most likely due to poor oral intake resolving. 05/30/2019-patient creatinine is 0.96 on admission is 1.26 ELFEGO most likely secondary to poor oral intake. 05/31/2019-patient came in with ELFEGO admission creatinine is 1.26 and the latest creatinine is 0.8. Acute kidney injury secondary to poor oral intake is resolved. 06/01/[id number]kftw-old female came in with ELFEGO admission creatinine is 1.26 today's creatinine was 0.95 acute kidney injury is resolved. 06/02/2019-on admission the patient had minimal creatinine elevation at 1.26. It has since normalized with IV hydration. Possible etiologies include poor oral intake and the slightly elevated creatinine kinase. 06/03/2019-resolved (4) Leukocytosis Is this a current diagnosis for this admission?: Yes Plan: We will monitor her CBC. 05/29/2019-patient admitted with elevated leukocytosis LP was abnormal waiting for the Gram stain and cell count presently on vancomycin and Zosyn started on IV acyclovir. ID consult was requested. Patient is going to be on droplet isolation. 05/30/2019-patient WBC count is 15,200 improving. Blood cultures are negative. Urine cultures are negative. LP was negative. Antibiotics are discontinued. 05/31/2019-patient's WBC count is 12,900 improving. Patient is off the antibiotics. Leukocytosis most likely reactive leukocytosis. 12/02/2018-patient came in with elevated WBC count leukocytosis resolved WBC count today is 7.3. 06/02/2019-white blood cell count is now normal. She is on dexamethasone 2 mg every 6 hours at home. No further information is obtained at this point. We will continue for the time being and investigate further when the patient is able to provide more information. 06/03/2019-white blood cell count is now normal 06/04/2019-resolved (5) Rhabdomyolysis Qualifiers: Encounter type: initial encounter Is this a current diagnosis for this admission?: Yes Plan: Will be corrected with hydration. 05/29/2019-patient has rhabdomyolysis with CPK of thousand causes unknown at this point. May be history of fall we do not know. 05/30/2019-patient came in with elevated CK levels most likely secondary to muscle damage. She is on IV fluids. 05/31/2019-patient came with elevated CKs most likely secondary to fall. CK level is 1312 on half normal saline at 100 cc/h plan is to see repeat the CK levels today. 06/01/2019-patient came in with elevated CKs receiving IV fluids. latest CK is 84. 06/02/2019-resolved with IV hydration As above (6) Acute respiratory failure with hypoxemia Is this a current diagnosis for this admission?: Yes Plan: 06/02/2019-on May 30 the manager user experience was called to the bedside. The patient was exhibiting increased work of breathing with increasing hypoxemia despite higher oxygen supply. The patient was intubated and placed on mechanical ventilation. She is currently on SIMV/PRVC with a rate of 16, tidal volume of 450 with 10 of pressure support and 5 of PEEP. We will try to wean as tolerated. 06/03/2019-the patient is wide awake and responding to questions. We placed her on pressure support and she went for many seconds without initiating of breath. On command she can take a deep breath. We will continue to wean as tolerated. 06/04/2019-we did perform a spontaneous pressure support trial this afternoon. I asked the patient to take several deep breaths. She then began to breathe spontaneously without prompting. We will continue his pressure support trial this afternoon and again in the morning. If he does well then consider extubation. 06/05/2019-pressure support trial was initiated again today but this time the patient did not breathe spontaneously. No obvious source of this abnormality (breathing spontaneous 1 day and then the next) has been identified. It may very well be due to an hypoxic injury. (7) Atherosclerosis of right carotid artery Is this a current diagnosis for this admission?: Yes Plan: 06/02/2019-CT angiogram obtained earlier shows 60 to 80% stenosis of the right carotid artery. There is no evidence of stroke on imaging studies at the time of admission. She is already on statin therapy and I will initiate aspirin 81 mg daily. 06/03/2019-continue statin therapy as well as aspirin. 06/04/2019-continue current medication regimen. No other intervention at this time. 06/05/2019-continue same (8) Hypothyroidism Qualifiers: Hypothyroidism type: unspecified Qualified Code(s): E03.9 - Hypothyroidism, unspecified Is this a current diagnosis for this admission?: Yes Plan: 06/02/2019-the patient is on 200 mcg of levothyroxine daily at home. We will administer 100 mcg by IV daily until she is able to take oral medications and then change her back to her normal outpatient dosing. 06/03/2019-I will change the patient back to her 200 mcg of levothyroxine and will administer per NG tube for the time being. 06/04/2019-she is back on 200 mcg of levothyroxine per the nasogastric tube. 06/05/2019-continue 200 mcg levothyroxine (9) Hypertension Qualifiers: Hypertension type: essential hypertension Qualified Code(s): I10 - Essential (primary) hypertension Is this a current diagnosis for this admission?: Yes Plan: 06/02/2019-the patient is on lisinopril 20 mg daily at home. Her blood pressures were quite elevated and in addition to the lisinopril amlodipine was added. She also has as needed medications by intravenous available. We will continue to monitor her blood pressure and adjust medications accordingly. 06/03/2019-her blood pressures are still quite variable. She now is on lisinopril and amlodipine. I will monitor closely and consider medication alterations based on her response to the current medication regimen. 06/04/2019-good blood pressure control at this time. No changes in her regimen unless prompted by elevated readings. 06/05/2019-continue same - Time Time Spent with patient: 15-24 minutes Medications reviewed and adjusted accordingly: Yes
[2019-06-05] MEDS: LEVALBUTEROL HCL NEB 0.63 MG/3 ML AMPUL NEB PRN (20:31)
[2019-06-05] MEDS: QUETIAPINE FUMARATE 100 MG TABLET PO SCH (20:59)
[2019-06-05] MEDS: ATORVASTATIN CALCIUM 10 MG TABLET PO SCH (20:59)
[2019-06-06] MEDS: LEVALBUTEROL HCL NEB 1.25 MG/3 ML AMPUL NEB SCH ×4 (00:05→23:40)
[2019-06-06] MEDS: IPRATROPIUM BROMIDE 0.02% NEB 0.5 MG/2.5 ML AMPUL NEB SCH ×4 (00:05→23:40)
[2019-06-06] MEDS: CHLORPROMAZINE HCL INJ 25 MG/1 ML AMPULE IV SCH ×2 (01:38→11:18)
[2019-06-06] MEDS: PROPOFOL 1,000 MG/100 ML INFUS..BTL IV PRN ×3 (03:53→22:22)
[2019-06-06] MEDS: 1/2 NORMAL SALINE 1,000 ML IV PRN ×2 (03:53→14:00)
[2019-06-06 04:20] LABS: ABSOLUTE LYMPHOCYTES (AUTO) 1.2 10^3/uL (0.5-4.7); ABSOLUTE MONOCYTES (AUTO) 0.7 10^3/uL (0.1-1.4); ABSOLUTE NEUT (AUTO) 7.4 10^3/uL (1.7-8.2); BASOPHILS % (AUTO) 0.2 % (0-2); EOSINOPHILS % (AUTO) 0.2 % (0-6); HEMOGLOBIN 10.9 g/dL (12.0-15.5); LYMPHOCYTES % (AUTO) 12.5 % (13-45); MEAN CORPUSCULAR HEMOGLOBIN 28.8 pg (27.0-33.4); MEAN CORPUSCULAR HGB CONC 33.2 g/dL (32.0-36.0); MEAN CORPUSCULAR VOLUME 87 fl (80-97); MONOCYTES % (AUTO) 7.8 % (3-13); PLATELET COUNT 322 10^3/uL (150-450); RED BLOOD COUNT 3.81 10^6/uL (3.72-5.28); RED CELL DISTRIBUTION WIDTH 15.5 % (11.5-14.0); SEGMENTED NEUTROPHILS % (AUTO) 79.3 % (42-78); TOTAL CELLS COUNTED % (AUTO) 100 %; WHITE BLOOD COUNT 9.3 10^3/uL (4.0-10.5)
[2019-06-06 04:46] LABS: ANION GAP 6 (5-19); BLOOD UREA NITROGEN 12 mg/dL (7-20); CALCIUM 8.5 mg/dL (8.4-10.2); CARBON DIOXIDE 24 mmol/L (22-30); CHLORIDE 110 mmol/L (98-107); GLUCOSE 170 mg/dL (75-110); PHOSPHORUS 3.9 mg/dL (2.5-4.5); POTASSIUM 3.9 mmol/L (3.6-5.0)
[2019-06-06 05:05] LABS: ARTERIAL BLOOD BASE EXCESS -2.8 mmol/L; ARTERIAL BLOOD H2CO3 0.77 mmol/L (1.05-1.35); ARTERIAL BLOOD HCO3 19.2 mmol/L (20-24); ARTERIAL BLOOD O2 SATURATION 97.9 % (94-98); ARTERIAL BLOOD PCO2 25.5 mmHg (35-45)
[2019-06-06 05:13] LABS: ARTERIAL BLOOD FIO2 25%
[2019-06-06] MEDS: MAGNESIUM SULFATE 1 GM/D5W 100 ML IV SCH ×2 (05:51→06:44)
[2019-06-06] MEDS: LEVOTHYROXINE SODIUM 0.1 MG TABLET NG SCH (05:51)
[2019-06-06] MEDS: DEXAMETHASONE 4 MG TABLET NG SCH ×3 (05:52→21:52)
[2019-06-06] MEDS: INSULIN LISPRO 100 UNIT/ML 3 ML VIAL SUBCUT SCH ×3 (05:52→19:44)
[2019-06-06] MEDS: BUDESONIDE NEB 0.5 MG/2 ML AMPUL NEB SCH ×2 (08:31→20:11)
--- NOTE | 2019-06-06 08:59 | RADIOLOGY REPORT (SQ) ---
EXAM DESCRIPTION: CHEST SINGLE VIEW COMPLETED DATE/TIME: 06/06/2019 6:54 am REASON FOR STUDY: od/resp failure COMPARISON: 06/03/2019. EXAM PARAMETERS: NUMBER OF VIEWS: One view. TECHNIQUE: Single frontal radiographic view of the chest acquired. RADIATION DOSE: NA LIMITATIONS: None. FINDINGS: LUNGS AND PLEURA: No opacities, masses or pneumothorax. No pleural effusion. MEDIASTINUM AND HILAR STRUCTURES: No masses. Contour normal. HEART AND VASCULAR STRUCTURES: Heart normal in size. Normal vasculature. BONES: No acute findings. HARDWARE: Stable endotracheal tube, nasogastric tube, and central line. OTHER: No other significant finding. IMPRESSION: STABLE APPEARANCE. NO ACUTE RADIOGRAPHIC FINDING IN THE CHEST. TECHNICAL DOCUMENTATION: JOB ID: [id number] [employer]- All Rights Reserved Reading location - IP/workstation name: [email or web address]
[2019-06-06] MEDS: LISINOPRIL 10 MG TABLET PO SCH (11:14)
[2019-06-06] MEDS: METFORMIN HCL 500 MG TABLET PO SCH ×2 (11:17→19:45)
[2019-06-06] MEDS: ASPIRIN 81 MG TABLET, CHEWABLE NG SCH (11:17)
[2019-06-06] MEDS: AMLODIPINE BESYLATE 10 MG TABLET PO SCH (11:18)
[2019-06-06] MEDS: VANCOMYCIN HCL 1,000 MG in DEXTROSE 5%-WATER 250 ML IV SCH (11:18)
[2019-06-06 12:15] LABS: VANCOMYCIN,TROUGH 21.4 ug/mL (5.0-20.0)
[2019-06-06] MEDS ORDERED: BISACODYL 5 MG TABEC PO ONE (17:23)
[2019-06-06] MEDS ORDERED: BISACODYL 10 MG SUPP.RECT PR ONE (17:23)
[2019-06-06] MEDS ORDERED: BISACODYL 10 MG SUPP.RECT PR PRN (17:23)
[2019-06-06] MEDS ORDERED: BISACODYL 5 MG TABEC PO PRN (17:23)
[2019-06-06] MEDS ORDERED: POLYETHYLENE GLYCOL 3350 POWDER 17 GM/1 PACKET NG PRN (18:14)
--- NOTE | 2019-06-06 18:23 | PDOC PROGRESS REPORT ---
Subjective Progress Note for:: 06/06/19 Subjective:: Currently resting on IMV. Intubated and sedated. Pressure support trial failed earlier. Reason For Visit: ACUTE METABOLIC ENCEPHALOPATHY. DKA Physical Exam Vital Signs: Temp Pulse Resp BP Pulse Ox 98.2 F 59 L 10 L 162/82 H 98 06/06/19 12:00 06/06/19 12:00 06/06/19 12:00 06/06/19 12:00 06/06/19 12:35 Intake & Output 06/05/19 06/06/19 06/07/19 06:59 06:59 06:59 Intake Total 3092 3268 29 Output Total 7949 4165 1100 Balance 262 -886 -6075 Weight 61.2 kg 56.4 kg General appearance: PRESENT: no acute distress, other - Currently sedated Head exam: PRESENT: atraumatic, normocephalic Mouth exam: PRESENT: other - Endotracheal tube in place Respiratory exam: PRESENT: clear to auscultation jaqueline, symmetrical, unlabored. ABSENT: rales, rhonchi, tachypnea, wheezes Cardiovascular exam: PRESENT: RRR, +S1, +S2 GI/Abdominal exam: PRESENT: normal bowel sounds, soft. ABSENT: distended, te nderness Rectal exam: PRESENT: deferred Gentrourinary exam: PRESENT: indwelling catheter Extremities exam: ABSENT: pedal edema Musculoskeletal exam: PRESENT: normal inspection Neurological exam: ABSENT: awake Psychiatric exam: ABSENT: agitated Focused psych exam: ABSENT: restlessness Results Laboratory Results: 06/06/19 04:06 06/06/19 04:06 06/06/19 06/06/19 06/06/19 04:06 04:06 04:56 WBC 9.3 RBC 3.81 Hgb 10.9 L Hct 33.0 L MCV 87 MCH 28.8 MCHC 33.2 RDW 15.5 H Plt Count 322 Seg Neutrophils % 79.3 H Lymphocytes % 12.5 L Monocytes % 7.8 Eosinophils % 0.2 Basophils % 0.2 Absolute Neutrophils 7.4 Absolute Lymphocytes 1.2 Absolute Monocytes 0.7 Absolute Eosinophils 0.0 Absolute Basophils 0.0 Carbonic Acid 0.77 L HCO3/H2CO3 Ratio 24:1 ABG pH 7.50 H ABG pCO2 25.5 L ABG pO2 95.0 ABG HCO3 19.2 L ABG O2 Saturation 97.9 ABG Base Excess -2.8 FiO2 25% Sodium 139.9 Potassium 3.9 Chloride 110 H Carbon Dioxide 24 Anion Gap 6 BUN 12 Creatinine 0.66 Est GFR ( Amer) > 60 Est GFR (Non-Af Amer) > 60 Glucose 170 H Calcium 8.5 Phosphorus 3.9 Magnesium 1.5 L 05/28/19 05/28/19 05/29/19 14:20 14:20 06:55 Creatine Kinase 414 H 1037 H CK-MB (CK-2) 6.78 H Troponin I 0.130 05/29/19 05/31/19 11:15 10:39 Creatine Kinase 1312 H 84 CK-MB (CK-2) Troponin I Impressions: Cervical Spine CT 05/28/19 14:12 IMPRESSION: No fracture or static subluxation of the cervical spine. Multilev el discectomy and fusion from C3 through C7. Head CT 05/28/19 14:12 IMPRESSION: No acute intracranial pathology. EVIDENCE OF ACUTE STROKE: NO. Head CTA 05/29/19 00:00 IMPRESSION: NO CTA EVIDENCE OF STENOSIS OR ANEURYSM OF THE [place]. Interventional Vascular Procedure 05/29/19 00:00 IMPRESSION: Ultrasound guidance for vascular access. Neck CTA 05/29/19 00:00 IMPRESSION: 70- 80% stenosis of the proximal right ICA. Head MRI 05/29/19 15:17 IMPRESSION: Normal but limited due to motion. Recommend repeat when the patient is more stable. EVIDENCE OF ACUTE STROKE: NO. Chest/Abdomen CTA 05/31/19 00:00 IMPRESSION: Left lower lobe pneumonia. No PE. Chest X-Ray 06/06/19 06:00 IMPRESSION: STABLE APPEARANCE. NO ACUTE RADIOGRAPHIC FINDING IN THE CHEST. Assessment and Plan - Diagnosis (1) Acute metabolic encephalopathy Is this a current diagnosis for this admission?: Yes Plan: Hyperglycemia, acute kidney injury metabolic acidosis could explain her altered mental status. LP requested to rule out meningitis. Until meningitis is ruled out patient is on Rocephin and vancomycin. 05/29/2019-patient admitted with altered mental status multiple reasons one is hyperglycemia with blood sugar than 690 that once 90 with metabolic acidosis, LP was abnormal waiting for the reports. And she is also has a recent history of pontine infarct CT head was negative at this time MRI of the brain is pending. CT of the head was also requested. 05/30/2019-patient admitted with altered mental status LP was negative as per ID recommendations antibiotics and acyclovir are discontinued. Previous history of strokes. Altered mental status may be secondary to hyperglycemia and medication overdose. Psych consult is going to be requested. Patient is more alert more awake today MRI of the head was negative CT of the neck shows 60 to 80% of the blockage in the right proximal carotid artery. 05/31/[id number]-veip-old female admitted for altered mental status most likely se[place] ndary to medication overdose. LP was done as per the ID recommendations meningitis is very unlikely. Antibiotics and acyclovir are discontinued patient is afebrile WBC count is stable. 06/01/2019-patient was admitted with altered mental status CT head is negative for acute stroke MRI is negative for acute stroke CT of the neck shows right carotid artery occlusions with 60 to 80% blockage. anoxic Encephalopathy is a possibility also. EEG was requested. 06/02/2019-discussion in multidisciplinary rounds seems to suggest that the patient had a prescription for Ambien. An empty pill bottle was found. All of the medication was missing and cannot be accounted for. It is possible that the patient ingested all of the medication. An EEG is being obtained today. I will review the results. She is opening her eyes to verbal stimulus. She does not keep them open for long. She did try to establish eye contact. In addition she did nod her head yes and no to to simple questions. We will continue to assess. 06/03/2019-the patient in fact was opening her eyes. She appeared to understand everything I was saying. She did try to answer questions. With the endotracheal tube in place it was difficult to interpret mouthing words. She was able to shake her head yes and no. The encephalopathy appears to have cleared. 06/04/2019-patient was quite alert today. She is tried to mouth words to respond to questions. Breath sounds are quite congested and she would cough intermittently but they are replacing her endotracheal suction device. The encephalopathy appears to have cleared but we have not been able to engage in a true conversation. Once she is extubated we should be able to evaluate further. Psychiatry is also waiting to see the patient. 06/05/2019-patient is alert but somewhat agitated today. She is quite restless. Still impossible to assess mental state while intubated 06/06/2019-the patient has been able to communicate on decreased dose of propofol. We will reassess her mental state when she is extubated and able to have a conversation. (2) DKA (diabetic ketoacidoses) Qualifiers: Diabetes mellitus type: type 2 Is this a current diagnosis for this admission?: Yes Plan: Patient has hyperglycemia of 690, metabolic acidosis and anion gap. Patient has been started on insulin drip and transferred to ICU. She will be managed according to DKA protocol. 06/02/2019-patient was initially placed on continuous insulin infusion. She has since come off of the insulin. She is on Accu-Cheks and sliding scale coverage at this time. We will review home medications and resume when appropriate. 06/03/2019-she is currently on sliding scale. I will resume her metformin as her Accu-Cheks vary widely. I will review her sliding scale requirements and consider long-acting insulin. 06/04/2019-she is back on metformin in addition to the insulin sliding scale. Will make adjustments based on the sliding scale requirements. 06/05/2019-continue to monitor Accu-Cheks now on metformin and still on sliding scale 06/06/2019-ketoacidosis is resolved. Her fingerstick still very widely. We are hopeful for extubation tomorrow at that time we may very well and some long- acting insulin to her metformin. (3) Acute kidney injury Is this a current diagnosis for this admission?: Yes Plan: Creatinine of 1.26. Patient has been started on normal saline at rate of 200 mm/h which will correct the acute kidney injury. 05/29/2019-patient creatinine today is 0.86 at the time of admission 1.26 ELFEGO most likely due to poor oral intake resolving. 05/30/2019-patient creatinine is 0.96 on admission is 1.26 ELFEGO most likely secondary to poor oral intake. 05/31/2019-patient came in with ELFEGO admission creatinine is 1.26 and the latest creatinine is 0.8. Acute kidney injury secondary to poor oral intake is resolved. 06/01/[id number]-wbnx-old female came in with ELFEGO admission creatinine is 1.26 today's creatinine was 0.95 acute kidney injury is resolved. 06/02/2019-on admission the patient had minimal creatinine elevation at 1.26. It has since normalized with IV hydration. Possible etiologies include poor oral intake and the slightly elevated creatinine kinase. 06/03/2019-resolved As above (4) Leukocytosis Is this a current diagnosis for this admission?: Yes Plan: We will monitor her CBC. 05/29/2019-patient admitted with elevated leukocytosis LP was abnormal waiting for the Gram stain and cell count presently on vancomycin and Zosyn started on IV acyclovir. ID consult was requested. Patient is going to be on droplet isolation. 05/30/2019-patient WBC count is 15,200 improving. Blood cultures are negative. Urine cultures are negative. LP was negative. Antibiotics are discontinued. 05/31/2019-patient's WBC count is 12,900 improving. Patient is off the antibiotics. Leukocytosis most likely reactive leukocytosis. 12/02/2018-patient came in with elevated WBC count leukocytosis resolved WBC count today is 7.3. 06/02/2019-white blood cell count is now normal. She is on dexamethasone 2 mg every 6 hours at home. No further information is obtained at this point. We will continue for the time being and investigate further when the patient is able to provide more information. 06/03/2019-white blood cell count is now normal 06/04/2019-resolved 06/06/2019-resolved. Continue to monitor white cell count. (5) Rhabdomyolysis Qualifiers: Encounter type: initial encounter Is this a current diagnosis for this admission?: Yes Plan: Will be corrected with hydration. 05/29/2019-patient has rhabdomyolysis with CPK of thousand causes unknown at this point. May be history of fall we do not know. 05/30/2019-patient came in with elevated CK levels most likely secondary to muscle damage. She is on IV fluids. 05/31/2019-patient came with elevated CKs most likely secondary to fall. CK level is 1312 on half normal saline at 100 cc/h plan is to see repeat the CK levels today. 06/01/2019-patient came in with elevated CKs receiving IV fluids. latest CK is 84. 06/02/2019-resolved with IV hydration As above (6) Acute respiratory failure with hypoxemia Is this a current diagnosis for this admission?: Yes Plan: 06/02/2019-on May 30 the county library director was called to the bedside. The patient was exhibiting increased work of breathing with increasing hypoxemia despite higher oxygen supply. The patient was intubated and placed on mechanical ventilation. She is currently on SIMV/PRVC with a rate of 16, tidal volume of 450 with 10 of pressure support and 5 of PEEP. We will try to wean as tolerated. 06/03/2019-the patient is wide awake and responding to questions. We placed her on pressure support and she went for many seconds without initiating of breath. On command she can take a deep breath. We will continue to wean as tolerated. 06/04/2019-we did perform a spontaneous pressure support trial this afternoon. I asked the patient to take several deep breaths. She then began to breathe spontaneously without prompting. We will continue his pressure support trial this afternoon and again in the morning. If he does well then consider extubation. 06/05/2019-pressure support trial was initiated again today but this time the patient did not breathe spontaneously. No obvious source of this abnormality (breathing spontaneous 1 day and then the next) has been identified. It may very well be due to an hypoxic injury. 06/06/2019-after careful review the patient's nurse realized that the Thorazine was on a scheduled dose as opposed to as needed. I stopped the scheduled dose, decreased the actual dose and changed it to as needed. This should allow for extubation tomorrow. (7) Atherosclerosis of right carotid artery Is this a current diagnosis for this admission?: Yes Plan: 06/02/2019-CT angiogram obtained earlier shows 60 to 80% stenosis of the right carotid artery. There is no evidence of stroke on imaging studies at the time of admission. She is already on statin therapy and I will initiate aspirin 81 mg daily. 06/03/2019-continue statin therapy as well as aspirin. 06/04/2019-continue current medication regimen. No other intervention at this time. 06/05/2019-continue same (8) Hypothyroidism Qualifiers: Hypothyroidism type: unspecified Qualified Code(s): E03.9 - Hypothyroidism, unspecified Is this a current diagnosis for this admission?: Yes Plan: 06/02/2019-the patient is on 200 mcg of levothyroxine daily at home. We will administer 100 mcg by IV daily until she is able to take oral medications and then change her back to her normal outpatient dosing. 06/03/2019-I will change the patient back to her 200 mcg of levothyroxine and will administer per NG tube for the time being. 06/04/2019-she is back on 200 mcg of levothyroxine per the nasogastric tube. 06/05/2019-continue 200 mcg levothyroxine (9) Hypertension Qualifiers: Hypertension type: essential hypertension Qualified Code(s): I10 - Essential (primary) hypertension Is this a current diagnosis for this admission?: Yes Plan: 06/02/2019-the patient is on lisinopril 20 mg daily at home. Her blood pressures were quite elevated and in addition to the lisinopril amlodipine was added. She also has as needed medications by intravenous available. We will continue to monitor her blood pressure and adjust medications accordingly. 06/03/2019-her blood pressures are still quite variable. She now is on lisinopril and amlodipine. I will monitor closely and consider medication alterations based on her response to the current medication regimen. 06/04/2019-good blood pressure control at this time. No changes in her regimen unless prompted by elevated readings. 06/05/2019-continue same 06/06/2019-blood pressures on the low side today. I may have to adjust her medications. - Time Time Spent with patient: 15-24 minutes Medications reviewed and adjusted accordingly: Yes Anticipated discharge: Other - Will have to evaluate with physical therapy. Prolonged critical illness has likely weakend her.
[2019-06-06] MEDS: ENOXAPARIN SODIUM INJ 40 MG/0.4 ML DISP.SYRIN SUBCUT SCH (19:43)
[2019-06-06] MEDS: DOCUSATE SODIUM 100 MG/10 ML UDC PO SCH (19:45)
[2019-06-06] MEDS: ATORVASTATIN CALCIUM 10 MG TABLET PO SCH (21:52)
[2019-06-06] MEDS: QUETIAPINE FUMARATE 100 MG TABLET PO SCH (21:52)
[2019-06-06] MEDS: VANCOMYCIN HCL 750 MG in DEXTROSE 5%-WATER 250 ML IV SCH (21:52)
[2019-06-06] MEDS ORDERED: CHLORPROMAZINE HCL INJ 25 MG/1 ML AMPULE ONE (21:57)
[2019-06-06] MEDS: CHLORPROMAZINE HCL INJ 25 MG/1 ML AMPULE IV PRN (22:04)
[2019-06-07] MEDS: INSULIN LISPRO 100 UNIT/ML 3 ML VIAL SUBCUT SCH ×4 (01:28→18:45)
[2019-06-07] MEDS: PROPOFOL 1,000 MG/100 ML INFUS..BTL IV PRN (04:15)
[2019-06-07] MEDS ORDERED: CHLORPROMAZINE HCL INJ 25 MG/1 ML AMPULE ONE (04:48)
[2019-06-07] MEDS: 1/2 NORMAL SALINE 1,000 ML IV PRN ×2 (04:59→22:34)
[2019-06-07] MEDS: LEVOTHYROXINE SODIUM 0.1 MG TABLET NG SCH (05:00)
[2019-06-07] MEDS: CHLORPROMAZINE HCL INJ 25 MG/1 ML AMPULE IV PRN (05:00)
[2019-06-07 05:01] LABS: ABSOLUTE LYMPHOCYTES (AUTO) 1.4 10^3/uL (0.5-4.7); ABSOLUTE MONOCYTES (AUTO) 0.8 10^3/uL (0.1-1.4); ABSOLUTE NEUT (AUTO) 9.7 10^3/uL (1.7-8.2); BASOPHILS % (AUTO) 0.1 % (0-2); EOSINOPHILS % (AUTO) 0.2 % (0-6); HEMATOCRIT 32.2 % (36.0-47.0); HEMOGLOBIN 10.6 g/dL (12.0-15.5); LYMPHOCYTES % (AUTO) 11.8 % (13-45); MEAN CORPUSCULAR HEMOGLOBIN 28.9 pg (27.0-33.4); MEAN CORPUSCULAR VOLUME 88 fl (80-97); MONOCYTES % (AUTO) 6.9 % (3-13); PLATELET COUNT 350 10^3/uL (150-450); RED BLOOD COUNT 3.68 10^6/uL (3.72-5.28); RED CELL DISTRIBUTION WIDTH 15.5 % (11.5-14.0); TOTAL CELLS COUNTED % (AUTO) 100 %
[2019-06-07 05:08] LABS: ARTERIAL BLOOD BASE EXCESS -1.8 mmol/L; ARTERIAL BLOOD H2CO3 1.07 mmol/L (1.05-1.35); ARTERIAL BLOOD HCO3 22.3 mmol/L (20-24); ARTERIAL BLOOD O2 SATURATION 97.5 % (94-98); ARTERIAL BLOOD PCO2 35.4 mmHg (35-45); ARTERIAL BLOOD PH 7.42 (7.35-7.45); ARTERIAL BLOOD PO2 95.8 mmHg (80-100); ARTERIAL BLOOD TOTAL CO2 23.4 mmol/L (21-25)
[2019-06-07 05:14] LABS: ARTERIAL BLOOD FIO2 25%
[2019-06-07 05:23] LABS: ANION GAP 7 (5-19); BLOOD UREA NITROGEN 12 mg/dL (7-20); CALCIUM 8.6 mg/dL (8.4-10.2); CARBON DIOXIDE 24 mmol/L (22-30); CHLORIDE 108 mmol/L (98-107); GLUCOSE 249 mg/dL (75-110)
[2019-06-07] MEDS: IPRATROPIUM BROMIDE 0.02% NEB 0.5 MG/2.5 ML AMPUL NEB SCH ×3 (07:57→23:39)
[2019-06-07] MEDS: BUDESONIDE NEB 0.5 MG/2 ML AMPUL NEB SCH ×2 (07:58→19:55)
[2019-06-07] MEDS: LEVALBUTEROL HCL NEB 1.25 MG/3 ML AMPUL NEB SCH ×3 (07:58→23:39)
--- NOTE | 2019-06-07 08:19 | RADIOLOGY REPORT (SQ) ---
EXAM DESCRIPTION: CHEST SINGLE VIEW COMPLETED DATE/TIME: 06/07/2019 6:52 am REASON FOR STUDY: intubated, s/p surgery COMPARISON: 06/06/2019. EXAM PARAMETERS: NUMBER OF VIEWS: One view. TECHNIQUE: Single frontal radiographic view of the chest acquired. RADIATION DOSE: NA LIMITATIONS: None. FINDINGS: LUNGS AND PLEURA: No opacities, masses or pneumothorax. No pleural effusion. MEDIASTINUM AND HILAR STRUCTURES: No masses. Contour normal. HEART AND VASCULAR STRUCTURES: Heart normal in size. Normal vasculature. BONES: No acute findings. HARDWARE: Stable endotracheal tube, nasogastric tube, and central line. OTHER: No other significant finding. IMPRESSION: STABLE APPEARANCE. NO ACUTE FINDINGS. TECHNICAL DOCUMENTATION: JOB ID: [id number] [employer]- All Rights Reserved Reading location - IP/workstation name: [email or web address]
[2019-06-07] MEDS: LISINOPRIL 10 MG TABLET PO SCH (09:32)
[2019-06-07] MEDS: AMLODIPINE BESYLATE 10 MG TABLET PO SCH (09:32)
[2019-06-07] MEDS: VANCOMYCIN HCL 750 MG in DEXTROSE 5%-WATER 250 ML IV SCH ×2 (09:32→22:44)
[2019-06-07] MEDS: METFORMIN HCL 500 MG TABLET PO SCH ×2 (09:32→18:15)
[2019-06-07] MEDS: ASPIRIN 81 MG TABLET, CHEWABLE NG SCH (09:32)
[2019-06-07] MEDS: DOCUSATE SODIUM 100 MG/10 ML UDC PO SCH ×2 (09:32→18:15)
[2019-06-07] MEDS: DEXAMETHASONE 4 MG TABLET NG SCH (09:33)
[2019-06-07] MEDS: PANTOPRAZOLE SODIUM 40 MG VIAL IV SCH (10:40)
[2019-06-07] MEDS ORDERED: BENZOCAINE/MENTHOL SORE THROAT LOZENGE BUCCAL PRN (14:35)
[2019-06-07] MEDS ORDERED: TRAMADOL HCL 50 MG TABLET PO PRN (14:39)
--- NOTE | 2019-06-07 16:59 | PDOC PROGRESS REPORT ---
Subjective Progress Note for:: 06/07/19 Subjective:: Resting quite comfortably. She was extubated this morning. Voice is quite hoarse. Reason For Visit: ACUTE METABOLIC ENCEPHALOPATHY. DKA Physical Exam Vital Signs: Temp Pulse Resp BP Pulse Ox 98.4 F 70 14 158/76 H 94 06/07/19 12:00 06/07/19 12:00 06/07/19 12:00 06/07/19 12:00 06/07/19 12:00 Intake & Output 06/06/19 06/07/19 06/08/19 06:59 06:59 06:59 Intake Total 3268 2827 67 Output Total 4165 3225 570 Balance -897 -398 -503 Weight 56.4 kg 62.8 kg General appearance: PRESENT: no acute distress, cooperative, thin, other - Resting comfortably Head exam: PRESENT: atraumatic, normocephalic Ear exam: PRESENT: normal external ear exam Mouth exam: PRESENT: other - Very hoarse voice Respiratory exam: PRESENT: clear to auscultation jaqueline, symmetrical, unlabored. ABSENT: rales, rhonchi, tachypnea, wheezes Cardiovascular exam: PRESENT: RRR, +S1, +S2 GI/Abdominal exam: PRESENT: normal bowel sounds, soft. ABSENT: distended, tenderness Rectal exam: PRESENT: deferred Gentrourinary exam: PRESENT: indwelling catheter Extremities exam: ABSENT: joint swelling, pedal edema Musculoskeletal exam: PRESENT: normal inspection Neurological exam: PRESENT: awake, oriented to person, oriented to place, oriented to time, oriented to situation, CN II-XII grossly intact. ABSENT: alert - Slightly sleepy Psychiatric exam: PRESENT: flat affect. ABSENT: agitated, anxious Focused psych exam: ABSENT: delusional, restlessness Results Laboratory Results: 06/07/19 04:30 06/07/19 04:30 06/07/19 06/07/19 06/07/19 04:30 04:30 04:30 WBC 12.0 H RBC 3.68 L Hgb 10.6 L Hct 32.2 L MCV 88 MCH 28.9 MCHC 33.0 RDW 15.5 H Plt Count 350 Seg Neutrophils % 81.0 H Lymphocytes % 11.8 L Monocytes % 6.9 Eosinophils % 0.2 Basophils % 0.1 Absolute Neutrophils 9.7 H Absolute Lymphocytes 1.4 Absolute Monocytes 0.8 Absolute Eosinophils 0.0 Absolute Basophils 0.0 Carbonic Acid 1.07 HCO3/H2CO3 Ratio 20:1 ABG pH 7.42 ABG pCO2 35.4 ABG pO2 95.8 ABG HCO3 22.3 ABG O2 Saturation 97.5 ABG Base Excess -1.8 FiO2 25% Sodium 138.8 Potassium 4.0 Chloride 108 H Carbon Dioxide 24 Anion Gap 7 BUN 12 Creatinine 0.68 Est GFR ( Amer) > 60 Est GFR (Non-Af Amer) > 60 Glucose 249 H Calcium 8.6 Magnesium 1.7 05/28/19 05/28/19 05/29/19 14:20 14:20 06:55 Creatine Kinase 414 H 1037 H CK-MB (CK-2) 6.78 H Troponin I 0.130 05/29/19 05/31/19 11:15 10:39 Creatine Kinase 1312 H 84 CK-MB (CK-2) Troponin I Impressions: Cervical Spine CT 05/28/19 14:12 IMPRESSION: No fracture or static subluxation of the cervical spine. Multilevel discectomy and fusion from C3 through C7. Head CT 05/28/19 14:12 IMPRESSION: No acute intracranial pathology. EVIDENCE OF ACUTE STROKE: NO. Head CTA 05/29/19 00:00 IMPRESSION: NO CTA EVIDENCE OF STENOSIS OR ANEURYSM OF THE [place]. Interventional Vascular Procedure 05/29/19 00:00 IMPRESSION: Ultrasound guidance for vascular access. Neck CTA 05/29/19 00:00 IMPRESSION: 70- 80% stenosis of the proximal right ICA. Head MRI 05/29/19 15:17 IMPRESSION: Normal but limited due to motion. Recommend repeat when the patient is more stable. EVIDENCE OF ACUTE STROKE: NO. Chest/Abdomen CTA 05/31/19 00:00 IMPRESSION: Left lower lobe pneumonia. No PE. Chest X-Ray 06/07/19 06:00 IMPRESSION: STABLE APPEARANCE. NO ACUTE FINDINGS. Assessment and Plan - Diagnosis (1) Acute metabolic encephalopathy Is this a current diagnosis for this admission?: Yes Plan: Hyperglycemia, acute kidney injury metabolic acidosis could explain her altered mental status. LP requested to rule out meningitis. Until meningitis is ruled out patient is on Rocephin and vancomycin. 05/29/2019-patient admitted with altered mental status multiple reasons one is hyperglycemia with blood sugar than 690 that once 90 with metabolic acidosis, LP was abnormal waiting for the reports. And she is also has a recent history of pontine infarct CT head was negative at this time MRI of the brain is pending. CT of the head was also requested. 05/30/2019-patient admitted with altered mental status LP was negative as per ID recommendations antibiotics and acyclovir are discontinued. Previous history of strokes. Altered mental status may be secondary to hyperglycemia and medication overdose. Psych consult is going to be requested. Patient is more alert more awake today MRI of the head was negative CT of the neck shows 60 to 80% of the blockage in the right proximal carotid artery. 05/31/[id number]-ntse-old female admitted for altered mental status most likely secondary to medication overdose. LP was done as per the ID recommendations m eningitis is very unlikely. Antibiotics and acyclovir are discontinued patient is afebrile WBC count is stable. 06/01/2019-patient was admitted with altered mental status CT head is negative for acute stroke MRI is negative for acute stroke CT of the neck shows right carotid artery occlusions with 60 to 80% blockage. anoxic Encephalopathy is a possibility also. EEG was requested. 06/02/2019-discussion in multidisciplinary rounds seems to suggest that the patient had a prescription for Ambien. An empty pill bottle was found. All of the medication was missing and cannot be accounted for. It is possible that the patient ingested all of the medication. An EEG is being obtained today. I will review the results. She is opening her eyes to verbal stimulus. She does not keep them open for long. She did try to establish eye contact. In addition she did nod her head yes and no to to simple questions. We will continue to assess. 06/03/2019-the patient in fact was opening her eyes. She appeared to understand everything I was saying. She did try to answer questions. With the endotr acheal tube in place it was difficult to interpret mouthing words. She was able to shake her head yes and no. The encephalopathy appears to have cleared. 06/04/2019-patient was quite alert today. She is tried to mouth words to respond to questions. Breath sounds are quite congested and she would cough intermittently but they are replacing her endotracheal suction device. The encephalopathy appears to have cleared but we have not been able to engage in a true conversation. Once she is extubated we should be able to evaluate further. Psychiatry is also waiting to see the patient. 06/05/2019-patient is alert but somewhat agitated today. She is quite restless. Still impossible to assess mental state while intubated 06/06/2019-the patient has been able to communicate on decreased dose of propofol. We will reassess her mental state when she is extubated and able to have a conversation. 06/07/2019-the patient is extubated. Her voice is quite hoarse. She appears to be making sense. Further evaluation of her mental state can be carried out tomorrow. (2) DKA (diabetic ketoacidoses) Qualifiers: Diabetes mellitus type: type 2 Is this a current diagnosis for this admission?: Yes Plan: Patient has hyperglycemia of 690, metabolic acidosis and anion gap. Patient has been started on insulin drip and transferred to ICU. She will be managed according to DKA protocol. 06/02/2019-patient was initially placed on continuous insulin infusion. She has since come off of the insulin. She is on Accu-Cheks and sliding scale coverage at this time. We will review home medications and resume when appropriate. 06/03/2019-she is currently on sliding scale. I will resume her metformin as her Accu-Cheks vary widely. I will review her sliding scale requirements and consider long-acting insulin. 06/04/2019-she is back on metformin in addition to the insulin sliding scale. Will make adjustments based on the sliding scale requirements. 06/05/2019-continue to monitor Accu-Cheks now on metformin and still on sliding scale 06/06/2019-ketoacidosis is resolved. Her fingerstick still very widely. We are hopeful for extubation tomorrow at that time we may very well and some long- acting insulin to her metformin. 06/07/2019-she was just extubated today. Once she establishes that she can tolerate an oral diet I will likely add some Lantus to her regimen. (3) Acute kidney injury Is this a current diagnosis for this admission?: Yes Plan: Creatinine of 1.26. Patient has been started on normal saline at rate of 200 mm/h which will correct the acute kidney injury. 05/29/2019-patient creatinine today is 0.86 at the time of admission 1.26 ELFEGO most likely due to poor oral intake resolving. 05/30/2019-patient creatinine is 0.96 on admission is 1.26 ELFEGO most likely secondary to poor oral intake. 05/31/2019-patient came in with ELFEGO admission creatinine is 1.26 and the latest creatinine is 0.8. Acute kidney injury secondary to poor oral intake is resolved. 06/01/[id number]-gsty-old female came in with ELFEGO admission creatinine is 1.26 today's creatinine was 0.95 acute kidney injury is resolved. 06/02/2019-on admission the patient had minimal creatinine elevation at 1.26. It has since normalized with IV hydration. Possible etiologies include poor oral intake and the slightly elevated creatinine kinase. 06/03/2019-resolved As above 06/07/2019-resolved. Continue to monitor. (4) Leukocytosis Is this a current diagnosis for this admission?: Yes Plan: We will monitor her CBC. 05/29/2019-patient admitted with elevated leukocytosis LP was abnormal waiting f or the Gram stain and cell count presently on vancomycin and Zosyn started on IV acyclovir. ID consult was requested. Patient is going to be on droplet isolation. 05/30/2019-patient WBC count is 15,200 improving. Blood cultures are negative. Urine cultures are negative. LP was negative. Antibiotics are discontinued. 05/31/2019-patient's WBC count is 12,900 improving. Patient is off the anti biotics. Leukocytosis most likely reactive leukocytosis. 12/02/2018-patient came in with elevated WBC count leukocytosis resolved WBC count today is 7.3. 06/02/2019-white blood cell count is now normal. She is on dexamethasone 2 mg every 6 hours at home. No further information is obtained at this point. We will continue for the time being and investigate further when the patient is able to provide more information. 06/03/2019-white blood cell count is now normal 06/04/2019-resolved 06/06/2019-resolved. Continue to monitor white cell count. 06/07/2019-the patient's white blood cell count is increased slightly to 12,000. I am unsure of the exact etiology. We will continue to monitor. On occasion white blood cell counts will rise and fall without clinical significance. This may very well be the case. (5) Rhabdomyolysis Qualifiers: Encounter type: initial encounter Is this a current diagnosis for this admission?: Yes Plan: Will be corrected with hydration. 05/29/2019-patient has rhabdomyolysis with CPK of thousand causes unknown at this point. May be history of fall we do not know. 05/30/2019-patient came in with elevated CK levels most likely secondary to muscle damage. She is on IV fluids. 05/31/2019-patient came with elevated CKs most likely secondary to fall. CK level is 1312 on half normal saline at 100 cc/h plan is to see repeat the CK levels today. 06/01/2019-patient came in with elevated CKs receiving IV fluids. latest CK is 84. 06/02/2019-resolved with IV hydration As above 06/07/2019-no reason to suspect recurrence. Not following creatinine kinase enzymes at this time. (6) Acute respiratory failure with hypoxemia Is this a current diagnosis for this admission?: Yes Plan: 06/02/2019-on May 30 the saddle tree stitcher was called to the bedside. The patient was exhibiting increased work of breathing with increasing hypoxemia despite higher oxygen supply. The patient was intubated and placed on mechanical ventilation. She is currently on SIMV/PRVC with a rate of 16, tidal volume of 450 with 10 of pressure support and 5 of PEEP. We will try to wean as tolerated. 06/03/2019-the patient is wide awake and responding to questions. We placed her on pressure support and she went for many seconds without initiating of breath. On command she can take a deep breath. We will continue to wean as tolerated. 06/04/2019-we did perform a spontaneous pressure support trial this afternoon. I asked the patient to take several deep breaths. She then began to breathe spontaneously without prompting. We will continue his pressure support trial this afternoon and again in the morning. If he does well then consider extubation. 06/05/2019-pressure support trial was initiated again today but this time the patient did not breathe spontaneously. No obvious source of this abnormality (breathing spontaneous 1 day and then the next) has been identified. It may very well be due to an hypoxic injury. 06/06/2019-after careful review the patient's nurse realized that the Thorazine was on a scheduled dose as opposed to as needed. I stopped the scheduled dose, decreased the actual dose and changed it to as needed. This should allow for extubation tomorrow. 06/07/2019-the patient was extubated today. She has nasal cannula oxygen and available if needed. She is breathing comfortably. We will continue to monitor. Now that she is extubated she will be able to downgrade to medical floor status on telemetry. (7) Atherosclerosis of right carotid artery Is this a current diagnosis for this admission?: Yes Plan: 06/02/2019-CT angiogram obtained earlier shows 60 to 80% stenosis of the right carotid artery. There is no evidence of stroke on imaging studies at the time of admission. She is already on statin therapy and I will initiate aspirin 81 mg daily. 06/03/2019-continue statin therapy as well as aspirin. 06/04/2019-continue current medication regimen. No other intervention at this time. 06/05/2019-continue same 06/07/2019-no intervention at this time. She can pursue this as an outpatient. (8) Hypothyroidism Qualifiers: Hypothyroidism type: unspecified Qualified Code(s): E03.9 - Hypothyroidism, unspecified Is this a current diagnosis for this admission?: Yes Plan: 06/02/2019-the patient is on 200 mcg of levothyroxine daily at home. We will administer 100 mcg by IV daily until she is able to take oral medications and then change her back to her normal outpatient dosing. 06/03/2019-I will change the patient back to her 200 mcg of levothyroxine and will administer per NG tube for the time being. 06/04/2019-she is back on 200 mcg of levothyroxine per the nasogastric tube. 06/05/2019-continue 200 mcg levothyroxine 06/07/2019-her TSH was slightly elevated and her T3 was slightly low. She is already on 200 mcg of levothyroxine. Consider low-dose liothyronine. (9) Hypertension Qualifiers: Hypertension type: essential hypertension Qualified Code(s): I10 - Essential (primary) hypertension Is this a current diagnosis for this admission?: Yes Plan: 06/02/2019-the patient is on lisinopril 20 mg daily at home. Her blood pressures were quite elevated and in addition to the lisinopril amlodipine was added. She also has as needed medications by intravenous available. We will continue to monitor her blood pressure and adjust medications accordingly. 06/03/2019-her blood pressures are still quite variable. She now is on lisinopril and amlodipine. I will monitor closely and consider medication alterations based on her response to the current medication regimen. 06/04/2019-good blood pressure control at this time. No changes in her regimen unless prompted by elevated readings. 06/05/2019-continue same 06/06/2019-blood pressures on the low side today. I may have to adjust her medications. 06/07/2019-continue current medications. Blood pressures are occasionally low but as she increases her activity and is off sedating medications (while she was intubated) her blood pressure should improve. - Time Time Spent with patient: 15-24 minutes Medications reviewed and adjusted accordingly: Yes
[2019-06-07] MEDS: ENOXAPARIN SODIUM INJ 40 MG/0.4 ML DISP.SYRIN SUBCUT SCH (18:36)
[2019-06-07] MEDS: QUETIAPINE FUMARATE 100 MG TABLET PO SCH (22:28)
[2019-06-07] MEDS: ATORVASTATIN CALCIUM 10 MG TABLET PO SCH (22:28)
[2019-06-07] MEDS: DEXAMETHASONE SOD PHOSPHATE INJ 4 MG/1 ML VIAL IV SCH (22:34)
[2019-06-08] MEDS: INSULIN LISPRO 100 UNIT/ML 3 ML VIAL SUBCUT SCH ×5 (00:40→23:55)
[2019-06-08] MEDS: CHLORPROMAZINE HCL INJ 25 MG/1 ML AMPULE IV PRN ×3 (00:40→21:05)
[2019-06-08] MEDS: HYDRALAZINE HCL INJ/PF 20 MG/1 ML SDV IV PRN (03:54)
[2019-06-08] MEDS: LEVOTHYROXINE SODIUM 0.1 MG TABLET NG SCH (05:20)
[2019-06-08] MEDS: ONDANSETRON HCL INJ/PF 4 MG/2 ML SDV IV PRN (05:31)
[2019-06-08 05:41] LABS: ABSOLUTE BASOPHILS # (AUTO) 0.1 10^3/uL (0.0-0.2); ABSOLUTE EOSINOPHILS # (AUTO) 0.1 10^3/uL (0.0-0.6); ABSOLUTE LYMPHOCYTES (AUTO) 1.8 10^3/uL (0.5-4.7); ABSOLUTE MONOCYTES (AUTO) 0.7 10^3/uL (0.1-1.4); ABSOLUTE NEUT (AUTO) 10.1 10^3/uL (1.7-8.2); BASOPHILS % (AUTO) 0.7 % (0-2); EOSINOPHILS % (AUTO) 0.6 % (0-6); HEMATOCRIT 35.6 % (36.0-47.0); HEMOGLOBIN 11.8 g/dL (12.0-15.5); LYMPHOCYTES % (AUTO) 14.4 % (13-45); MEAN CORPUSCULAR HEMOGLOBIN 28.7 pg (27.0-33.4); MEAN CORPUSCULAR VOLUME 87 fl (80-97); MONOCYTES % (AUTO) 5.2 % (3-13); PLATELET COUNT 403 10^3/uL (150-450); RED BLOOD COUNT 4.09 10^6/uL (3.72-5.28); SEGMENTED NEUTROPHILS % (AUTO) 79.1 % (42-78); TOTAL CELLS COUNTED % (AUTO) 100 %; WHITE BLOOD COUNT 12.7 10^3/uL (4.0-10.5)
[2019-06-08 06:15] LABS: ANION GAP 7 (5-19); BLOOD UREA NITROGEN 10 mg/dL (7-20); CALCIUM 8.6 mg/dL (8.4-10.2); CARBON DIOXIDE 26 mmol/L (22-30); CHLORIDE 106 mmol/L (98-107); GLUCOSE 153 mg/dL (75-110); POTASSIUM 3.9 mmol/L (3.6-5.0)
[2019-06-08 06:19] LABS: ARTERIAL BLOOD BASE EXCESS 0.1 mmol/L; ARTERIAL BLOOD H2CO3 1.08 mmol/L (1.05-1.35); ARTERIAL BLOOD HCO3 23.8 mmol/L (20-24); ARTERIAL BLOOD O2 SATURATION 94.3 % (94-98); ARTERIAL BLOOD PCO2 35.9 mmHg (35-45); ARTERIAL BLOOD PH 7.44 (7.35-7.45); ARTERIAL BLOOD PO2 68.1 mmHg (80-100); ARTERIAL BLOOD TOTAL CO2 24.9 mmol/L (21-25)
[2019-06-08 06:21] LABS: ARTERIAL BLOOD FIO2 ROOM AIR
[2019-06-08] MEDS: BUDESONIDE NEB 0.5 MG/2 ML AMPUL NEB SCH ×2 (08:56→20:54)
[2019-06-08] MEDS: LEVALBUTEROL HCL NEB 1.25 MG/3 ML AMPUL NEB SCH ×2 (08:56→15:54)
[2019-06-08] MEDS: IPRATROPIUM BROMIDE 0.02% NEB 0.5 MG/2.5 ML AMPUL NEB SCH ×2 (08:56→15:55)
[2019-06-08] MEDS: 1/2 NORMAL SALINE 1,000 ML IV PRN ×2 (09:38→22:31)
[2019-06-08] MEDS: DOCUSATE SODIUM 100 MG/10 ML UDC PO SCH ×2 (10:19→19:50)
[2019-06-08] MEDS: ASPIRIN 81 MG TABLET, CHEWABLE NG SCH (10:19)
[2019-06-08] MEDS: AMLODIPINE BESYLATE 10 MG TABLET PO SCH (10:20)
[2019-06-08] MEDS: LISINOPRIL 10 MG TABLET PO SCH (10:20)
[2019-06-08] MEDS: METFORMIN HCL 500 MG TABLET PO SCH ×2 (10:20→19:50)
[2019-06-08] MEDS: VANCOMYCIN HCL 750 MG in DEXTROSE 5%-WATER 250 ML IV SCH (10:35)
[2019-06-08] MEDS: DEXAMETHASONE SOD PHOSPHATE INJ 4 MG/1 ML VIAL IV SCH ×2 (10:39→22:32)
[2019-06-08] MEDS: PANTOPRAZOLE SODIUM 40 MG VIAL IV SCH (10:40)
--- NOTE | 2019-06-08 10:42 | RADIOLOGY REPORT (SQ) ---
EXAM DESCRIPTION: CHEST SINGLE VIEW COMPLETED DATE/TIME: 06/08/2019 9:29 am REASON FOR STUDY: pna COMPARISON: 06/07/2019 NUMBER OF VIEWS: One view. TECHNIQUE: Single frontal radiographic view of the chest acquired. LIMITATIONS: None. FINDINGS: LUNGS AND PLEURA: Patient has been extubated. The NG tube removed. Right-sided central l ine remains in place. Lung wing are clear. No consolidation or effusions. No pneumothorax. MEDIASTINUM AND HILAR STRUCTURES: No masses. Contour normal. HEART AND VASCULAR STRUCTURES: Heart normal in size. Normal vasculature. BONES: No acute findings. HARDWARE: None in the chest. OTHER: No other significant finding. IMPRESSION: Central line remains in place. Lung wing are clear. NG tube and endotracheal tube koo ve been removed. TECHNICAL DOCUMENTATION: JOB ID: [id number]- All Rights Reserved Reading location - IP/workstation name: [email or web address]
[2019-06-08 10:57] LABS: VANCOMYCIN,TROUGH 18.5 ug/mL (5.0-20.0)
--- NOTE | 2019-06-08 12:52 | PDOC CONSULTATION ---
Consultation Consult Date: 06/02/19 Attending physician:: ESDRAS KINGSTON Provider Consulted: TEE JOSHI Consult reason:: Altered mental status possible drug overdose History of Present Illness Admission Date/PCP: 05/28/19 17:41 DELFINA NIETO MD History of Present Illness: SHELLEY RODRÍGUEZ is a 54 year old female brought to the emergency room by EMS which she was sent after she was found to have altered mental status and was found intubated she also per reports had several vitals of medications recently feel that were completely empty her mental status continued to decline and she was also noted to have leukocytosis subsequently she was intubated and sedated. She has proven difficult to wean from the ventilator so far Past Medical History Pulmonary Medical History: Reports: Chronic Obstructive Pulmonary Disease (COPD) Endocrine Medical History: Reports: Diabetes Mellitus Type 2, Hypothyroidism Psychiatric Medical History: Reports: Depression Traumatic Medical History: Denies: Gunshot Wound, Pneumothorax Hematology: Denies: Sickle Cell Disease Infectious Medical History: Denies: HIV Social History Information Source: [facility] Records Smoking Status: Unknown if Ever Smoked Hx Recreational Drug Use: Yes Hx Prescription Drug Abuse: Yes - Advance Directive Resuscitation Status: Full Code Family History Parental Family History Reviewed: No Children Family History Reviewed: No Sibling(s) Family History Reviewed.: No Medication/Allergy Home Medications: Atorvastatin Calcium [Lipitor 10 mg Tablet] 10 mg PO QHS 05/28/19 Baclofen [Baclofen 10 mg Tablet] 10 mg PO TIDP PRN 05/28/19 Dexamethasone 2 mg PO Q6 05/28/19 Gabapentin [Neurontin] 800 mg PO QIDP PRN 05/28/19 Insulin Lispro [Humalog Kwikpen U-100] See Protocol SQ MEALS 05/28/19 Levothyroxine Sodium [Synthroid] 200 mcg PO Q6AM 05/28/19 Lisinopril [Prinivil] 20 mg PO DAILY 05/28/19 Metformin HCl [Glucophage] 1,000 mg PO BID 05/28/19 Quetiapine Fumarate [Seroquel 100 mg Tablet] 100 mg PO QHS 05/28/19 Zolpidem Tartrate [Ambien] 10 mg PO HSP PRN 05/28/19 Allergies/Adverse Reactions: Penicillins Allergy (Verified 05/28/19 18:43) Review of Systems ROS unobtainable: Due to endotracheal tube, Due to mental status Physical Exam Vital Signs: Temp Pulse Resp BP Pulse Ox 97.9 F 78 18 158/89 H 99 06/02/19 08:00 06/02/19 08:00 06/02/19 08:00 06/02/19 08:00 06/02/19 08:00 Intake & Output 06/01/19 06/02/19 06/03/19 06:59 06:59 06:59 Intake Total 2254 2147 Output Total 496 3135 560 Balance 1758 -168 -692 Weight 63.7 kg 64.8 kg General appearance: PRESENT: no acute distress, disheveled. ABSENT: cooperative Head exam: PRESENT: atraumatic, normocephalic Eye exam: PRESENT: conjunctiva pale. ABSENT: nystagmus, periorbital swelling, scleral icterus Mouth exam: PRESENT: dry mucosa, neck supple, tongue midline, other - Endotracheal tube Neck exam: ABSENT: carotid bruit, full ROM, JVD, lymphadenopathy, meningismus, tenderness, thyromegaly, tracheal deviation, tracheostomy, other Respiratory exam: PRESENT: decreased breath sounds, prolonged expiratory phas, rales, rhonchi, unlabored. ABSENT: retraction, stridor, tachypnea Cardiovascular exam: PRESENT: RRR, +S1, +S2, tachycardia Pulses: PRESENT: normal radial pulses GI/Abdominal exam: PRESENT: soft. ABSENT: mass, tenderness Gentrourinary exam: PRESENT: indwelling catheter Extremities exam: PRESENT: pedal edema. ABSENT: calf tenderness, clubbing, joint swelling Musculoskeletal exam: ABSENT: deformity, dislocation Neurological exam: ABSENT: awake Skin exam: PRESENT: dry, warm Results Laboratory Results: 06/02/19 04:15 06/02/19 04:15 06/02/19 06/02/19 06/02/19 04:15 04:15 05:20 WBC 6.2 RBC 3.56 L Hgb 10.5 L Hct 30.9 L MCV 87 MCH 29.5 MCHC 34.0 RDW 14.9 H Plt Count 211 Seg Neutrophils % 69.2 Lymphocytes % 23.5 Monocytes % 5.9 Eosinophils % 0.0 Basophils % 1.4 Absolute Neutrophils 4.3 Absolute Lymphocytes 1.5 Absolute Monocytes 0.4 Absolute Eosinophils 0.0 Absolute Basophils 0.1 Carbonic Acid 0.84 L HCO3/H2CO3 Ratio 23:1 ABG pH 7.46 H ABG pCO2 27.8 L ABG pO2 81.9 ABG HCO3 19.4 L ABG O2 Saturation 96.8 ABG Base Excess -3.4 FiO2 25% Sodium 137.4 Potassium 3.9 Chloride 112 H Carbon Dioxide 19 L Anion Gap 6 BUN 20 Creatinine 0.75 Est GFR ( Amer) > 60 Est GFR (Non-Af Amer) > 60 Glucose 190 H Calcium 8.3 L Magnesium 1.9 Total Bilirubin 0.4 AST 15 ALT 28 Alkaline Phosphatase 92 Total Protein 4.8 L Albumin 2.5 L 05/28/19 05/28/19 05/29/19 14:20 14:20 06:55 Creatine Kinase 414 H 1037 H CK-MB (CK-2) 6.78 H Troponin I 0.130 05/29/19 05/31/19 11:15 10:39 Creatine Kinase 1312 H 84 CK-MB (CK-2) Troponin I Impressions: Cervical Spine CT 05/28/19 14:12 IMPRESSION: No fracture or static subluxation of the cervical spine. Multilevel discectomy and fusion from C3 through C7. Head CT 05/28/19 14:12 IMPRESSION: No acute intracranial pathology. EVIDENCE OF ACUTE STROKE: NO. Head CTA 05/29/19 00:00 IMPRESSION: NO CTA EVIDENCE OF STENOSIS OR ANEURYSM OF THE [place]. Interventional Vascular Procedure 05/29/19 00:00 IMPRESSION: Ultrasound guidance for vascular access. Neck CTA 05/29/19 00:00 IMPRESSION: 70- 80% stenosis of the proximal right ICA. Head MRI 05/29/19 15:17 IMPRESSION: Normal but limited due to motion. Recommend repeat when the patient is more stable. EVIDENCE OF ACUTE STROKE: NO. Chest/Abdomen CTA 05/31/19 00:00 IMPRESSION: Left lower lobe pneumonia. No PE. Chest X-Ray 06/02/19 06:00 IMPRESSION: No significant change. Assessment & Plan - Diagnosis (1) Acute respiratory failure with hypoxemia Is this a current diagnosis for this admission?: Yes Plan: Continue mechanical ventilation with increase FiO2 (2) Altered mental status Qualifiers: Altered mental status type: coma Coma depth: [place] coma 3-8 Coma timing: in the field (EMT or ambulance) Qualified Code(s): R40.2431 - [place] coma scale score 3-8, in the field [EMT or ambulance] Is this a current diagnosis for this admission?: Yes Plan: Hypoxia versus drug overdose versus infarct (3) Acute metabolic encephalopathy Is this a current diagnosis for this admission?: Yes Plan: Renal failure acute and possible drug overdose - Time Total Critical Time (Minutes): 60
--- NOTE | 2019-06-08 16:10 | PSYCHOLOGICAL NOTE ---
Psych Note - Psych Note Date seen by psych provider: 06/08/19 Time seen by psych provider: 13:25 - Chart review at 1325. Attending Hospitalist called Count includes the [facility] at 1422. Psych Note: Presenting Problem: OD, BiPAP unsuccessful so intubated back on 05/31/19. Patient extubated 06/07/19 at 1102. Hospitalist progress Note from 06/07/19 stated patient had a very hoarse voice. At 2120 patient failed the swallow screen so to remain NPO. Attending Hospitalist called to inquire if [facility] saw patient, that they were going to try feeding pudding, PT involved, speech getting involved, that patient is able to engage in conversation and if psychiatrically cleared would recommend fpc. Diagnosis: OD Sleep Issues (on Ambien and Seroquel at night) Impression/Plan: Patient just extubated yesterday (06/07/19). Will conduct evaluation first thing tomorrow (06/09/19) morning as priority.
--- NOTE | 2019-06-08 18:10 | RADIOLOGY REPORT (SQ) ---
EXAM DESCRIPTION: KUB/ABDOMEN (SINGLE VIEW) COMPLETED DATE/TIME: 06/08/2019 5:39 pm REASON FOR STUDY: NG PLACEMENT; Will call when tube in place. COMPARISON: None. NUMBER OF VIEWS: One view. TECHNIQUE: Supine radiographic image of the abdomen acquired. LIMITATIONS: None. FINDINGS: The supine view the abdomen shows an NG tube that is doubled back upon itself in the dista l esophagus. IMPRESSION: The NG tube is doubled back upon itself in the distal esophagus. TECHNICAL DOCUMENTATION: JOB ID: [id number] [employer]- All Rights Reserved Reading location - IP/workstation name: [email or web address]
[2019-06-08] MEDS: ENOXAPARIN SODIUM INJ 40 MG/0.4 ML DISP.SYRIN SUBCUT SCH (18:17)
--- NOTE | 2019-06-08 22:08 | PDOC PROGRESS REPORT ---
Subjective Progress Note for:: 06/08/19 Subjective:: Patient is sitting in bed. Somewhat of a flat affect. She still remains quite hoarse. Reason For Visit: ACUTE METABOLIC ENCEPHALOPATHY. DKA Physical Exam Vital Signs: Temp Pulse Resp BP Pulse Ox 98.5 F 92 18 151/83 H 98 06/08/19 08:54 06/08/19 08:54 06/08/19 08:54 06/08/19 08:54 06/08/19 08:54 Intake & Output 06/07/19 06/08/19 06/09/19 06:59 06:59 06:59 Intake Total 2827 1567 1250 Output Total 3225 2590 Balance -398 -1023 1250 Weight 62.8 kg 61.5 kg General appearance: PRESENT: no acute distress, cooperative, well-developed Head exam: PRESENT: atraumatic, normocephalic Mouth exam: PRESENT: moist, tongue midline Respiratory exam: PRESENT: rales - Initial rales at the right base that cleared with deep breathing, symmetrical, unlabored. ABSENT: rhonchi, tachypnea, wheezes Cardiovascular exam: PRESENT: RRR, +S1, +S2, systolic murmur - 2/6 GI/Abdominal exam: PRESENT: normal bowel sounds, soft. ABSENT: distended, tenderness Extremities exam: ABSENT: joint swelling, pedal edema Musculoskeletal exam: PRESENT: normal inspection Neurological exam: PRESENT: alert, awake, oriented to person, oriented to place, oriented to situation Psychiatric exam: PRESENT: flat affect. ABSENT: agitated, anxious Focused psych exam: ABSENT: delusional, restlessness Results Laboratory Results: 06/08/19 05:30 06/08/19 05:30 06/08/19 06/08/19 06/08/19 05:30 05:30 06:10 WBC 12.7 H RBC 4.09 Hgb 11.8 L Hct 35.6 L MCV 87 MCH 28.7 MCHC 33.0 RDW 15.0 H Plt Count 403 Seg Neutrophils % 79.1 H Lymphocytes % 14.4 Monocytes % 5.2 Eosinophils % 0.6 Basophils % 0.7 Absolute Neutrophils 10.1 H Absolute Lymphocytes 1.8 Absolute Monocytes 0.7 Absolute Eosinophils 0.1 Absolute Basophils 0.1 Carbonic Acid 1.08 HCO3/H2CO3 Ratio 22:1 ABG pH 7.44 ABG pCO2 35.9 ABG pO2 68.1 L ABG HCO3 23.8 ABG O2 Saturation 94.3 ABG Base Excess 0.1 FiO2 ROOM AIR Sodium 139.0 Potassium 3.9 Chloride 106 Carbon Dioxide 26 Anion Gap 7 BUN 10 Creatinine 0.64 Est GFR ( Amer) > 60 Est GFR (Non-Af Amer) > 60 Glucose 153 H Calcium 8.6 Magnesium 1.5 L 05/28/19 05/28/19 05/29/19 14:20 14:20 06:55 Creatine Kinase 414 H 1037 H CK-MB (CK-2) 6.78 H Troponin I 0.130 05/29/19 05/31/19 11:15 10:39 Creatine Kinase 1312 H 84 CK-MB (CK-2) Troponin I Impressions: Cervical Spine CT 05/28/19 14:12 IMPRESSION: No fracture or static subluxation of the cervical spine. Multilevel discectomy and fusion from C3 through C7. Head CT 05/28/19 14:12 IMPRESSION: No acute intracranial pathology. EVIDENCE OF ACUTE STROKE: NO. Head CTA 05/29/19 00:00 IMPRESSION: NO CTA EVIDENCE OF STENOSIS OR ANEURYSM OF THE [place]. Interventional Vascular Procedure 05/29/19 00:00 IMPRESSION: Ultrasound guidance for vascular access. Neck CTA 05/29/19 00:00 IMPRESSION: 70- 80% stenosis of the proximal right ICA. Head MRI 05/29/19 15:17 IMPRESSION: Normal but limited due to motion. Recommend repeat when the patient is more stable. EVIDENCE OF ACUTE STROKE: NO. Chest/Abdomen CTA 05/31/19 00:00 IMPRESSION: Left lower lobe pneumonia. No PE. Chest X-Ray 06/08/19 06:00 IMPRESSION: Central line remains in place. Lung wing are clear. NG tube and endotracheal tube have been removed. Assessment and Plan - Diagnosis (1) Acute metabolic encephalopathy Is this a current diagnosis for this admission?: Yes Plan: Hyperglycemia, acute kidney injury metabolic acidosis could explain her altered mental status. LP requested to rule out meningitis. Until meningitis is ruled out patient is on Rocephin and vancomycin. 05/29/2019-patient admitted with altered mental status multiple reasons one is hyperglycemia with blood sugar than 690 that once 90 with metabolic acidosis, LP was abnormal waiting for the reports. And she is also has a recent history of pontine infarct CT head was negative at this time MRI of the brain is pending. CT of the head was also requested. 05/30/2019-patient admitted with altered mental status LP was negative as per ID recommendations antibiotics and acyclovir are discontinued. Previous history of strokes. Altered mental status may be secondary to hyperglycemia and medication overdose. Psych consult is going to be requested. Patient is more alert more awake today MRI of the head was negative CT of the neck shows 60 to 80% of the blockage in the right proximal carotid artery. 05/31/[id number]-lxef-old female admitted for altered mental status most likely secondary to medication overdose. LP was done as per the ID recommendations meningitis is very unlikely. Antibiotics and acyclovir are discontinued patient is afebrile WBC count is stable. 06/01/2019-patient was admitted with altered mental status CT head is negative for acute stroke MRI is negative for acute stroke CT of the neck shows right carotid artery occlusions with 60 to 80% blockage. anoxic Encephalopathy is a possibility also. EEG was requested. 06/02/2019-discussion in multidisciplinary rounds seems to suggest that the patient had a prescription for Ambien. An empty pill bottle was found. All of the medication was missing and cannot be accounted for. It is possible that the patient ingested all of the medication. An EEG is being obtained today. I will review the results. She is opening her eyes to verbal stimulus. She does not keep them open for long. She did try to establish eye contact. In addition she did nod her head yes and no to to simple questions. We will continue to assess. 06/03/2019-the patient in fact was opening her eyes. She appeared to understand everything I was saying. She did try to answer questions. With the endotracheal tube in place it was difficult to interpret mouthing words. She was able to shake her head yes and no. The encephalopathy appears to have cleared. 06/04/2019-patient was quite alert today. She is tried to mouth words to respond to questions. Breath sounds are quite congested and she would cough intermittently but they are replacing her endotracheal suction device. The encephalopathy appears to have cleared but we have not been able to engage in a true conversation. Once she is extubated we should be able to evaluate further. Psychiatry is also waiting to see the patient. 06/05/2019-patient is alert but somewhat agitated today. She is quite restless. Still impossible to assess mental state while intubated 06/06/2019-the patient has been able to communicate on decreased dose of propofol. We will reassess her mental state when she is extubated and able to have a conversation. 06/07/2019-the patient is extubated. Her voice is quite hoarse. She appears to be making sense. Further evaluation of her mental state can be carried out t omorrow. 06/08/2019-the patient can carry on an intelligible conversation. I believe the metabolic encephalopathy is completely resolved. (2) DKA (diabetic ketoacidoses) Qualifiers: Diabetes mellitus type: type 2 Is this a current diagnosis for this admission?: Yes Plan: Patient has hyperglycemia of 690, metabolic acidosis and anion gap. Patient has been started on insulin drip and transferred to ICU. She will be managed according to DKA protocol. 06/02/2019-patient was initially placed on continuous insulin infusion. She has since come off of the insulin. She is on Accu-Cheks and sliding scale coverage at this time. We will review home medications and resume when appropriate. 06/03/2019-she is currently on sliding scale. I will resume her metformin as her Accu-Cheks vary widely. I will review her sliding scale requirements and consider long-acting insulin. 06/04/2019-she is back on metformin in addition to the insulin sliding scale. Will make adjustments based on the sliding scale requirements. 06/05/2019-continue to monitor Accu-Cheks now on metformin and still on sliding scale 06/06/2019-ketoacidosis is resolved. Her fingerstick still very widely. We are hopeful for extubation tomorrow at that time we may very well and some long- acting insulin to her metformin. 06/07/2019-she was just extubated today. Once she establishes that she can tolerate an oral diet I will likely add some Lantus to her regimen. 06/08/2019-unfortunately the patient swallows compromised and the NG tube had to be placed back for nutrition and medication administration. (3) Acute kidney injury Is this a current diagnosis for this admission?: Yes Plan: Creatinine of 1.26. Patient has been started on normal saline at rate of 200 mm/h which will correct the acute kidney injury. 05/29/2019-patient creatinine today is 0.86 at the time of admission 1.26 [place] most likely due to poor oral intake resolving. 05/30/2019-patient creatinine is 0.96 on admission is 1.26 [place] most likely secondary to poor oral intake. 05/31/2019-patient came in with ELFEGO admission creatinine is 1.26 and the latest creatinine is 0.8. Acute kidney injury secondary to poor oral intake is resolved. 06/01/[id number]-oift-old female came in with ELFEGO admission creatinine is 1.26 today's creatinine was 0.95 acute kidney injury is resolved. 06/02/2019-on admission the patient had minimal creatinine elevation at 1.26. It has since normalized with IV hydration. Possible etiologies include poor oral intake and the slightly elevated creatinine kinase. 06/03/2019-resolved As above 06/07/2019-resolved. Continue to monitor. (4) Leukocytosis Is this a current diagnosis for this admission?: Yes Plan: We will monitor her CBC. 05/29/2019-patient admitted with elevated leukocytosis LP was abnormal waiting for the Gram stain and cell count presently on vancomycin and Zosyn started on IV acyclovir. ID consult was requested. Patient is going to be on droplet isolation. 05/30/2019-patient WBC count is 15,200 improving. Blood cultures are negative. Urine cultures are negative. LP was negative. Antibiotics are discontinued. 05/31/2019-patient's WBC count is 12,900 improving. Patient is off the antibiotics. Leukocytosis most likely reactive leukocytosis. 12/02/2018-patient came in with elevated WBC count leukocytosis resolved WBC count today is 7.3. 06/02/2019-white blood cell count is now normal. She is on dexamethasone 2 mg every 6 hours at home. No further information is obtained at this point. We will continue for the time being and investigate further when the patient is able to provide more information. 06/03/2019-white blood cell count is now normal 06/04/2019-resolved 06/06/2019-resolved. Continue to monitor white cell count. 06/07/2019-the patient's white blood cell count is increased slightly to 12,000. I am unsure of the exact etiology. We will continue to monitor. On occasion white blood cell counts will rise and fall without clinical significance. This may very well be the case. (5) Rhabdomyolysis Qualifiers: Encounter type: initial encounter Is this a current diagnosis for this admission?: Yes Plan: Will be corrected with hydration. 05/29/2019-patient has rhabdomyolysis with CPK of thousand causes unknown at this point. May be history of fall we do not know. 05/30/2019-patient came in with elevated CK levels most likely secondary to muscle damage. She is on IV fluids. 05/31/2019-patient came with elevated CKs most likely secondary to fall. CK level is 1312 on half normal saline at 100 cc/h plan is to see repeat the CK levels today. 06/01/2019-patient came in with elevated CKs receiving IV fluids. latest CK is 84. 06/02/2019-resolved with IV hydration As above 06/07/2019-no reason to suspect recurrence. Not following creatinine kinase en zymes at this time. (6) Acute respiratory failure with hypoxemia Is this a current diagnosis for this admission?: Yes Plan: 06/02/2019-on May 30 the personnel consultant was called to the bedside. The patient was exhibiting increased work of breathing with increasing hypoxemia despite higher oxygen supply. The patient was intubated and placed on mechanical ventilation. She is currently on SIMV/PRVC with a rate of 16, tidal volume of 450 with 10 of pressure support and 5 of PEEP. We will try to wean as tolerated. 06/03/2019-the patient is wide awake and responding to questions. We placed her on pressure support and she went for many seconds without initiating of breath. On command she can take a deep breath. We will continue to wean as tolerated. 06/04/2019-we did perform a spontaneous pressure support trial this afternoon. I asked the patient to take several deep breaths. She then began to breathe spontaneously without prompting. We will continue his pressure support trial this afternoon and again in the morning. If he does well then consider extubation. 06/05/2019-pressure support trial was initiated again today but this time the patient did not breathe spontaneously. No obvious source of this abnormality (breathing spontaneous 1 day and then the next) has been identified. It may very well be due to an hypoxic injury. 06/06/2019-after careful review the patient's nurse realized that the Thorazine was on a scheduled dose as opposed to as needed. I stopped the scheduled dose, decreased the actual dose and changed it to as needed. This should allow for extubation tomorrow. 06/07/2019-the patient was extubated today. She has nasal cannula oxygen and available if needed. She is breathing comfortably. We will continue to monitor. Now that she is extubated she will be able to downgrade to medical floor status on telemetry. 06/08/2019-the patient is doing well off of the ventilator. She has weaned from oxygen as well. (7) Atherosclerosis of right carotid artery Is this a current diagnosis for this admission?: Yes Plan: 06/02/2019-CT angiogram obtained earlier shows 60 to 80% stenosis of the right carotid artery. There is no evidence of stroke on imaging studies at the time of admission. She is already on statin therapy and I will initiate aspirin 81 mg daily. 06/03/2019-continue statin therapy as well as aspirin. 06/04/2019-continue current medication regimen. No other intervention at this time. 06/05/2019-continue same 06/07/2019-no intervention at this time. She can pursue this as an outpatient. (8) Hypothyroidism Qualifiers: Hypothyroidism type: unspecified Qualified Code(s): E03.9 - Hypothyroidism, unspecified Is this a current diagnosis for this admission?: Yes Plan: 06/02/2019-the patient is on 200 mcg of levothyroxine daily at home. We will administer 100 mcg by IV daily until she is able to take oral medications and then change her back to her normal outpatient dosing. 06/03/2019-I will change the patient back to her 200 mcg of levothyroxine and will administer per NG tube for the time being. 06/04/2019-she is back on 200 mcg of levothyroxine per the nasogastric tube. 06/05/2019-continue 200 mcg levothyroxine 06/07/2019-her TSH was slightly elevated and her T3 was slightly low. She is already on 200 mcg of levothyroxine. Consider low-dose liothyronine. (9) Hypertension Qualifiers: Hypertension type: essential hypertension Qualified Code(s): I10 - Essential (primary) hypertension Is this a current diagnosis for this admission?: Yes Plan: 06/02/2019-the patient is on lisinopril 20 mg daily at home. Her blood pressures were quite elevated and in addition to the lisinopril amlodipine was added. She also has as needed medications by intravenous available. We will continue to monitor her blood pressure and adjust medications accordingly. 06/03/2019-her blood pressures are still quite variable. She now is on lisinopril and amlodipine. I will monitor closely and consider medication alterations based on her response to the current medication regimen. 06/04/2019-good blood pressure control at this time. No changes in her regimen unless prompted by elevated readings. 06/05/2019-continue same 06/06/2019-blood pressures on the low side today. I may have to adjust her medications. 06/07/2019-continue current medications. Blood pressures are occasionally low but as she increases her activity and is off sedating medications (while she was intubated) her blood pressure should improve. (10) Dysphagia Qualifiers: Dysphagia type: unspecified Qualified Code(s): R13.10 - Dysphagia, unspecified Is this a current diagnosis for this admission?: Yes Plan: 06/08/2019-the patient does not have a safe swallow. Speech therapy consult has been ordered. She does need medication and nutrition and so a nasogastric tube has been ordered. Unfortunately the first 2 attempts have failed and the patient wishes to put off recurrent insertion until tomorrow. I have placed tube feed orders tonight so that once the nasogastric tube is in place they can initiate the tube feeding. - Time Time Spent with patient: 15-24 minutes Medications reviewed and adjusted accordingly: Yes Anticipated discharge: SNF
[2019-06-08] MEDS: ASPIRIN 81 MG TABLET, ENT COATED PO SCH (22:27)
[2019-06-08] MEDS: ATORVASTATIN CALCIUM 10 MG TABLET PO SCH (22:27)
[2019-06-08] MEDS: QUETIAPINE FUMARATE 100 MG TABLET PO SCH (22:27)
[2019-06-09] MEDS: IPRATROPIUM BROMIDE 0.02% NEB 0.5 MG/2.5 ML AMPUL NEB SCH ×3 (00:10→16:24)
[2019-06-09] MEDS: LEVALBUTEROL HCL NEB 1.25 MG/3 ML AMPUL NEB SCH ×3 (00:10→16:24)
[2019-06-09] MEDS: HYDRALAZINE HCL INJ/PF 20 MG/1 ML SDV IV PRN ×2 (00:24→11:09)
[2019-06-09] MEDS: INSULIN LISPRO 100 UNIT/ML 3 ML VIAL SUBCUT SCH ×3 (05:30→18:02)
[2019-06-09] MEDS: ONDANSETRON HCL INJ/PF 4 MG/2 ML SDV IV PRN (05:30)
[2019-06-09] MEDS: LEVOTHYROXINE SODIUM 0.1 MG TABLET NG SCH (05:37)
--- NOTE | 2019-06-09 06:48 | RADIOLOGY REPORT (SQ) ---
CLINICAL HISTORY: Check placement of NG tube. Tube has been placed. COMPARISON: 06/08/2019. TECHNIQUE: XR ABDOMEN 1 VIEW (KUB) 06/08/2019 12:00 AM CDT FINDINGS: Bowel gas pattern is nonspecific. There are no abnormal radiopaque foreign bodies or abnormal calcifications. Osseous structures are grossly unremarkable. NG tube tip is coiled upon itself in the distal esophagus. Lungs are clear. Right IJ central tip is in the lower SVC. Visualized upper abdominal gas pattern is unremarkable. IMPRESSION: Unchanged appearance of the NG tube with the tube coiled in the distal esophagus.
--- NOTE | 2019-06-09 07:26 | PDOC PROGRESS REPORT ---
Subjective Progress Note for:: 06/03/19 Subjective:: patient currently intubated and sedated Reason For Visit: ACUTE METABOLIC ENCEPHALOPATHY. DKA Physical Exam Vital Signs: Temp Pulse Resp BP Pulse Ox 97.9 F 52 L 17 194/82 H 100 06/09/19 00:19 06/09/19 02:00 06/09/19 00:19 06/09/19 00:19 06/09/19 00:19 Intake & Output 06/08/19 06/09/19 06/10/19 06:59 06:59 06:59 Intake Total 1567 2250 Output Total 2590 1250 Balance -1023 1000 Weight 61.5 kg 61.5 kg General appearance: PRESENT: no acute distress, well-developed, well-nourished Head exam: PRESENT: atraumatic, normocephalic Eye exam: PRESENT: conjunctiva pink, EOMI, PERRLA. ABSENT: scleral icterus Ear exam: PRESENT: normal external ear exam Mouth exam: PRESENT: moist, tongue midline, other - et tube in place Neck exam: ABSENT: carotid bruit, JVD, lymphadenopathy, thyromegaly Respiratory exam: PRESENT: clear to auscultation jaqueline, rales, symmetrical, unlabored. ABSENT: rhonchi, wheezes Cardiovascular exam: PRESENT: RRR. ABSENT: diastolic murmur, rubs, systolic murmur Pulses: PRESENT: normal radial pulses Vascular exam: PRESENT: normal capillary refill GI/Abdominal exam: PRESENT: normal bowel sounds, soft. ABSENT: distended, guarding, mass, organolmegaly, rebound, tenderness Rectal exam: PRESENT: deferred Gentrourinary exam: PRESENT: indwelling catheter Extremities exam: PRESENT: full ROM. ABSENT: calf tenderness, clubbing, pedal edema Neurological exam: PRESENT: awake. ABSENT: motor sensory deficit Psychiatric exam: PRESENT: appropriate affect, normal mood. ABSENT: homicidal ideation, suicidal ideation Skin exam: PRESENT: dry, intact, warm. ABSENT: cyanosis, rash Results Laboratory Results: 06/08/19 05:30 06/08/19 05:30 05/28/19 05/28/19 05/29/19 14:20 14:20 06:55 Creatine Kinase 414 H 1037 H CK-MB (CK-2) 6.78 H Troponin I 0.130 05/29/19 05/31/19 11:15 10:39 Creatine Kinase 1312 H 84 CK-MB (CK-2) Troponin I Impressions: Cervical Spine CT 05/28/19 14:12 IMPRESSION: No fracture or static subluxation of the cervical spine. Multilevel discectomy and fusion from C3 through C7. Head CT 05/28/19 14:12 IMPRESSION: No acute intracranial pathology. EVIDENCE OF ACUTE STROKE: NO. Head CTA 05/29/19 00:00 IMPRESSION: NO CTA EVIDENCE OF STENOSIS OR ANEURYSM OF THE [place]. Interventional Vascular Procedure 05/29/19 00:00 IMPRESSION: Ultrasound guidance for vascular access. Neck CTA 05/29/19 00:00 IMPRESSION: 70- 80% stenosis of the proximal right ICA. Head MRI 05/29/19 15:17 IMPRESSION: Normal but limited due to motion. Recommend repeat when the patient is more stable. EVIDENCE OF ACUTE STROKE: NO. Chest/Abdomen CTA 05/31/19 00:00 IMPRESSION: Left lower lobe pneumonia. No PE. Chest X-Ray 06/08/19 06:00 IMPRESSION: Central line remains in place. Lung wing are clear. NG tube and endotracheal tube have been removed. KUB X-Ray 06/08/19 16:39 IMPRESSION: The NG tube is doubled back upon itself in the distal esophagus. Assessment & Plan - Diagnosis (1) Acute respiratory failure with hypoxemia Is this a current diagnosis for this admission?: Yes Plan: Continue mechanical ventilation with increased FiO2 (2) Altered mental status Qualifiers: Altered mental status type: coma Coma depth: [place] coma 3-8 Coma timing: in the field (EMT or ambulance) Qualified Code(s): R40.2431 - [place] coma scale score 3-8, in the field [EMT or ambulance] Is this a current diagnosis for this admission?: Yes Plan: continue to monitor (3) Acute metabolic encephalopathy Is this a current diagnosis for this admission?: Yes Plan: acute renal failure and possible drug overdose as empty bill bottle was found - Time Total Critical Time (Minutes): 45 Inpatient Scribe Statement - . Entered by Liliana Zarate, acting as scribe for Dr. Bashir.
--- NOTE | 2019-06-09 07:31 | PDOC PROGRESS REPORT ---
Subjective Progress Note for:: 06/04/19 Subjective:: patient currently intubated and sedated Reason For Visit: ACUTE METABOLIC ENCEPHALOPATHY. DKA Physical Exam Vital Signs: Temp Pulse Resp BP Pulse Ox 97.9 F 52 L 17 194/82 H 100 06/09/19 00:19 06/09/19 02:00 06/09/19 00:19 06/09/19 00:19 06/09/19 00:19 Intake & Output 06/08/19 06/09/19 06/10/19 06:59 06:59 06:59 Intake Total 1567 2250 Output Total 2590 1250 Balance -1023 1000 Weight 61.5 kg 61.5 kg General appearance: PRESENT: no acute distress, well-developed, well-nourished Head exam: PRESENT: atraumatic, normocephalic Eye exam: PRESENT: conjunctiva pink, EOMI, PERRLA. ABSENT: scleral icterus Ear exam: PRESENT: normal external ear exam Mouth exam: PRESENT: moist, tongue midline Neck exam: ABSENT: carotid bruit, JVD, lymphadenopathy, thyromegaly Respiratory exam: PRESENT: decreased breath sounds, rales, rhonchi. ABSENT: wheezes Cardiovascular exam: PRESENT: RRR. ABSENT: diastolic murmur, rubs, systolic murmur Pulses: PRESENT: normal radial pulses Vascular exam: PRESENT: normal capillary refill GI/Abdominal exam: PRESENT: normal bowel sounds, soft. ABSENT: distended, guarding, mass, organolmegaly, rebound, tenderness Rectal exam: PRESENT: deferred Extremities exam: PRESENT: full ROM. ABSENT: calf tenderness, clubbing, pedal edema Neurological exam: ABSENT: alert, awake, motor sensory deficit Psychiatric exam: PRESENT: appropriate affect, normal mood. ABSENT: homicidal ideation, suicidal ideation Skin exam: PRESENT: dry, intact, warm. ABSENT: cyanosis, rash Results Laboratory Results: 06/08/19 05:30 06/08/19 05:30 05/28/19 05/28/19 05/29/19 14:20 14:20 06:55 Creatine Kinase 414 H 1037 H CK-MB (CK-2) 6.78 H Troponin I 0.130 05/29/19 05/31/19 11:15 10:39 Creatine Kinase 1312 H 84 CK-MB (CK-2) Troponin I Impressions: Cervical Spine CT 05/28/19 14:12 IMPRESSION: No fracture or static subluxation of the cervical spine. Multilevel discectomy and fusion from C3 through C7. Head CT 05/28/19 14:12 IMPRESSION: No acute intracranial pathology. EVIDENCE OF ACUTE STROKE: NO. Head CTA 05/29/19 00:00 IMPRESSION: NO CTA EVIDENCE OF STENOSIS OR ANEURYSM OF THE [place]. Interventional Vascular Procedure 05/29/19 00:00 IMPRESSION: Ultrasound guidance for vascular access. Neck CTA 05/29/19 00:00 IMPRESSION: 70- 80% stenosis of the proximal right ICA. Head MRI 05/29/19 15:17 IMPRESSION: Normal but limited due to motion. Recommend repeat when the patient is more stable. EVIDENCE OF ACUTE STROKE: NO. Chest/Abdomen CTA 05/31/19 00:00 IMPRESSION: Left lower lobe pneumonia. No PE. Chest X-Ray 06/08/19 06:00 IMPRESSION: Central line remains in place. Lung wing are clear. NG tube and endotracheal tube have been removed. KUB X-Ray 06/08/19 16:39 IMPRESSION: The NG tube is doubled back upon itself in the distal esophagus. Assessment & Plan - Diagnosis (1) Acute respiratory failure with hypoxemia Is this a current diagnosis for this admission?: Yes Plan: Continue mechanical ventilation with increased FiO2, continue weaning trials (2) Altered mental status Qualifiers: Altered mental status type: coma Coma depth: [place] coma 3-8 Coma timing: in the field (EMT or ambulance) Qualified Code(s): R40.2431 - [place] coma scale score 3-8, in the field [EMT or ambulance] Is this a current diagnosis for this admission?: Yes Plan: continue to monitor (3) Acute metabolic encephalopathy Is this a current diagnosis for this admission?: Yes Plan: acute renal failure and possible drug overdose as empty bill bottle was found - Time Total Critical Time (Minutes): 50 Inpatient Scribe Statement - . Entered by Liliana Zarate, acting as scribe for Dr. Bashir.
--- NOTE | 2019-06-09 07:34 | PDOC PROGRESS REPORT ---
Subjective Progress Note for:: 06/05/19 Subjective:: patient currently intubated and sedated Reason For Visit: ACUTE METABOLIC ENCEPHALOPATHY. DKA Physical Exam Vital Signs: Temp Pulse Resp BP Pulse Ox 97.9 F 52 L 17 194/82 H 100 06/09/19 00:19 06/09/19 02:00 06/09/19 00:19 06/09/19 00:19 06/09/19 00:19 Intake & Output 06/08/19 06/09/19 06/10/19 06:59 06:59 06:59 Intake Total 1567 2250 Output Total 2590 1250 Balance -1023 1000 Weight 61.5 kg 61.5 kg General appearance: PRESENT: no acute distress, well-developed, well-nourished Head exam: PRESENT: atraumatic, normocephalic Eye exam: PRESENT: conjunctiva pink, EOMI, PERRLA. ABSENT: scleral icterus Ear exam: PRESENT: normal external ear exam Mouth exam: PRESENT: moist, tongue midline, other - et tube in place Neck exam: ABSENT: carotid bruit, JVD, lymphadenopathy, thyromegaly Respiratory exam: PRESENT: clear to auscultation jaqueline. ABSENT: rales, rhonchi, wheezes Cardiovascular exam: PRESENT: RRR. ABSENT: diastolic murmur, rubs, systolic murmur Pulses: PRESENT: normal dorsalis pedis pul Vascular exam: PRESENT: normal capillary refill GI/Abdominal exam: PRESENT: normal bowel sounds, soft. ABSENT: distended, guarding, mass, organolmegaly, rebound, tenderness Rectal exam: PRESENT: deferred Extremities exam: PRESENT: full ROM. ABSENT: calf tenderness, clubbing, pedal edema Neurological exam: ABSENT: awake, motor sensory deficit Psychiatric exam: PRESENT: appropriate affect, normal mood. ABSENT: homicidal ideation, suicidal ideation Skin exam: PRESENT: dry, intact, warm. ABSENT: cyanosis, rash Results Laboratory Results: 06/08/19 05:30 06/08/19 05:30 05/28/19 05/28/19 05/29/19 14:20 14:20 06:55 Creatine Kinase 414 H 1037 H CK-MB (CK-2) 6.78 H Troponin I 0.130 05/29/19 05/31/19 11:15 10:39 Creatine Kinase 1312 H 84 CK-MB (CK-2) Troponin I Impressions: Cervical Spine CT 05/28/19 14:12 IMPRESSION: No fracture or static subluxation of the cervical spine. Multilevel discectomy and fusion from C3 through C7. Head CT 05/28/19 14:12 IMPRESSION: No acute intracranial pathology. EVIDENCE OF ACUTE STROKE: NO. Head CTA 05/29/19 00:00 IMPRESSION: NO CTA EVIDENCE OF STENOSIS OR ANEURYSM OF THE [place]. Interventional Vascular Procedure 05/29/19 00:00 IMPRESSION: Ultrasound guidance for vascular access. Neck CTA 05/29/19 00:00 IMPRESSION: 70- 80% stenosis of the proximal right ICA. Head MRI 05/29/19 15:17 IMPRESSION: Normal but limited due to motion. Recommend repeat when the patient is more stable. EVIDENCE OF ACUTE STROKE: NO. Chest/Abdomen CTA 05/31/19 00:00 IMPRESSION: Left lower lobe pneumonia. No PE. Chest X-Ray 06/08/19 06:00 IMPRESSION: Central line remains in place. Lung wing are clear. NG tube and endotracheal tube have been removed. KUB X-Ray 06/08/19 16:39 IMPRESSION: The NG tube is doubled back upon itself in the distal esophagus. Assessment & Plan - Diagnosis (1) Acute respiratory failure with hypoxemia Is this a current diagnosis for this admission?: Yes Plan: Continue mechanical ventilation with increased FiO2, continue weaning trials (2) Altered mental status Qualifiers: Altered mental status type: coma Coma depth: [place] coma 3-8 Coma timing: in the field (EMT or ambulance) Qualified Code(s): R40.2431 - [place] coma scale score 3-8, in the field [EMT or ambulance] Is this a current diagnosis for this admission?: Yes Plan: continue to monitor (3) Acute metabolic encephalopathy Is this a current diagnosis for this admission?: Yes Plan: acute renal failure and possible drug overdose as empty bill bottle was found - Time Total Critical Time (Minutes): 45 Inpatient Scribe Statement - . Entered by Liliana Zarate, acting as scribe for Dr. Bashir.
--- NOTE | 2019-06-09 07:39 | PDOC PROGRESS REPORT ---
Subjective Progress Note for:: 06/06/19 Subjective:: patient currently intubated and sedated Reason For Visit: ACUTE METABOLIC ENCEPHALOPATHY. DKA Physical Exam Vital Signs: Temp Pulse Resp BP Pulse Ox 97.9 F 52 L 17 194/82 H 100 06/09/19 00:19 06/09/19 02:00 06/09/19 00:19 06/09/19 00:19 06/09/19 00:19 Intake & Output 06/08/19 06/09/19 06/10/19 06:59 06:59 06:59 Intake Total 1567 2250 Output Total 2590 1250 Balance -1023 1000 Weight 61.5 kg 61.5 kg General appearance: PRESENT: no acute distress, well-developed, well-nourished Head exam: PRESENT: atraumatic, normocephalic Eye exam: PRESENT: conjunctiva pink, EOMI, PERRLA. ABSENT: scleral icterus Ear exam: PRESENT: normal external ear exam Mouth exam: PRESENT: moist, tongue midline Neck exam: ABSENT: carotid bruit, JVD, lymphadenopathy, thyromegaly Respiratory exam: PRESENT: decreased breath sounds, rales, rhonchi. ABSENT: wheezes Cardiovascular exam: PRESENT: RRR. ABSENT: diastolic murmur, rubs, systolic murmur Pulses: PRESENT: normal dorsalis pedis pul Vascular exam: PRESENT: normal capillary refill GI/Abdominal exam: PRESENT: normal bowel sounds, soft. ABSENT: distended, guarding, mass, organolmegaly, rebound, tenderness Rectal exam: PRESENT: deferred Extremities exam: PRESENT: full ROM. ABSENT: calf tenderness, clubbing, pedal edema Neurological exam: ABSENT: alert, awake, motor sensory deficit Psychiatric exam: PRESENT: appropriate affect, normal mood. ABSENT: homicidal ideation, suicidal ideation Skin exam: PRESENT: dry, intact, warm. ABSENT: cyanosis, rash Results Laboratory Results: 06/08/19 05:30 06/08/19 05:30 05/28/19 05/28/19 05/29/19 14:20 14:20 06:55 Creatine Kinase 414 H 1037 H CK-MB (CK-2) 6.78 H Troponin I 0.130 05/29/19 05/31/19 11:15 10:39 Creatine Kinase 1312 H 84 CK-MB (CK-2) Troponin I Impressions: Cervical Spine CT 05/28/19 14:12 IMPRESSION: No fracture or static subluxation of the cervical spine. Multilevel discectomy and fusion from C3 through C7. Head CT 05/28/19 14:12 IMPRESSION: No acute intracranial pathology. EVIDENCE OF ACUTE STROKE: NO. Head CTA 05/29/19 00:00 IMPRESSION: NO CTA EVIDENCE OF STENOSIS OR ANEURYSM OF [place]. Interventional Vascular Procedure 05/29/19 00:00 IMPRESSION: Ultrasound guidance for vascular access. Neck CTA 05/29/19 00:00 IMPRESSION: 70- 80% stenosis of the proximal right ICA. Head MRI 05/29/19 15:17 IMPRESSION: Normal but limited due to motion. Recommend repeat when the patient is more stable. EVIDENCE OF ACUTE STROKE: NO. Chest/Abdomen CTA 05/31/19 00:00 IMPRESSION: Left lower lobe pneumonia. No PE. Chest X-Ray 06/08/19 06:00 IMPRESSION: Central line remains in place. Lung wing are clear. NG tube and endotracheal tube have been removed. KUB X-Ray 06/08/19 16:39 IMPRESSION: The NG tube is doubled back upon itself in the distal esophagus. Assessment & Plan - Diagnosis (1) Acute respiratory failure with hypoxemia Is this a current diagnosis for this admission?: Yes Plan: Continue mechanical ventilation with increased FiO2, continue weaning trials (2) Altered mental status Qualifiers: Altered mental status type: coma Coma depth: [place] coma 3-8 Coma timing: in the field (EMT or ambulance) Qualified Code(s): R40.2431 - [place] coma scale score 3-8, in the field [EMT or ambulance] Is this a current diagnosis for this admission?: Yes Plan: continue to monitor (3) Acute metabolic encephalopathy Is this a current diagnosis for this admission?: Yes Plan: acute renal failure and possible drug overdose as empty bill bottle was found - Time Total Critical Time (Minutes): 45 Inpatient Scribe Statement - . Entered by Liliana Zarate, acting as scribe for Dr. Bashir.
--- NOTE | 2019-06-09 07:43 | PDOC PROGRESS REPORT ---
Subjective Progress Note for:: 06/07/19 Subjective:: patient currently intubated and sedated, pressure support a success, will proceed with extubation Reason For Visit: ACUTE METABOLIC ENCEPHALOPATHY. DKA Physical Exam Vital Signs: Temp Pulse Resp BP Pulse Ox 97.9 F 52 L 17 194/82 H 100 06/09/19 00:19 06/09/19 02:00 06/09/19 00:19 06/09/19 00:19 06/09/19 00:19 Intake & Output 06/08/19 06/09/19 06/10/19 06:59 06:59 06:59 Intake Total 1567 2250 Output Total 2590 1250 Balance -1023 1000 Weight 61.5 kg 61.5 kg General appearance: PRESENT: no acute distress, well-developed, well-nourished Head exam: PRESENT: atraumatic, normocephalic Eye exam: PRESENT: conjunctiva pink, EOMI, PERRLA. ABSENT: scleral icterus Ear exam: PRESENT: normal external ear exam Mouth exam: PRESENT: moist, tongue midline Neck exam: ABSENT: carotid bruit, JVD, lymphadenopathy, thyromegaly Respiratory exam: PRESENT: rales, symmetrical, unlabored. ABSENT: rhonchi, wheezes Cardiovascular exam: PRESENT: RRR. ABSENT: diastolic murmur, rubs, systolic murmur Pulses: PRESENT: normal dorsalis pedis pul Vascular exam: PRESENT: normal capillary refill GI/Abdominal exam: PRESENT: normal bowel sounds, soft. ABSENT: distended, guar ding, mass, organolmegaly, rebound, tenderness Rectal exam: PRESENT: deferred Extremities exam: PRESENT: full ROM. ABSENT: calf tenderness, clubbing, pedal edema Neurological exam: PRESENT: alert, awake, oriented to person, oriented to place. ABSENT: motor sensory deficit Psychiatric exam: PRESENT: flat affect, normal mood. ABSENT: homicidal ideation, suicidal ideation Skin exam: PRESENT: dry, intact, warm. ABSENT: cyanosis, rash Results Laboratory Results: 06/08/19 05:30 06/08/19 05:30 05/28/19 05/28/19 05/29/19 14:20 14:20 06:55 Creatine Kinase 414 H 1037 H CK-MB (CK-2) 6.78 H Troponin I 0.130 05/29/19 05/31/19 11:15 10:39 Creatine Kinase 1312 H 84 CK-MB (CK-2) Troponin I Impressions: Cervical Spine CT 05/28/19 14:12 IMPRESSION: No fracture or static subluxation of the cervical spine. Multilevel discectomy and fusion from C3 through C7. Head CT 05/28/19 14:12 IMPRESSION: No acute intracranial pathology. EVIDENCE OF ACUTE STROKE: NO. Head CTA 05/29/19 00:00 IMPRESSION: NO CTA EVIDENCE OF STENOSIS OR ANEURYSM OF THE [place]. Interventional Vascular Procedure 05/29/19 00:00 IMPRESSION: Ultrasound guidance for vascular access. Neck CTA 05/29/19 00:00 IMPRESSION: 70- 80% stenosis of the proximal right ICA. Head MRI 05/29/19 15:17 IMPRESSION: Normal but limited due to motion. Recommend repeat when the patient is more stable. EVIDENCE OF ACUTE STROKE: NO. Chest/Abdomen CTA 05/31/19 00:00 IMPRESSION: Left lower lobe pneumonia. No PE. Chest X-Ray 06/08/19 06:00 IMPRESSION: Central line remains in place. Lung wing are clear. NG tube and endotracheal tube have been removed. KUB X-Ray 06/08/19 16:39 IMPRESSION: The NG tube is doubled back upon itself in the distal esophagus. Assessment & Plan - Diagnosis (1) Acute respiratory failure with hypoxemia Is this a current diagnosis for this admission?: Yes Plan: will proceed with extubation today (2) Altered mental status Qualifiers: Altered mental status type: coma Coma depth: Bren[place] coma 3-8 Coma timing: in the field (EMT or ambulance) Qualified Code(s): R40.2431 - [place] coma scale score 3-8, in the field [EMT or ambulance] Is this a current diagnosis for this admission?: Yes Plan: continue to monitor (3) Acute metabolic encephalopathy Is this a current diagnosis for this admission?: Yes Plan: acute renal failure and possible drug overdose as empty bill bottle was found - Time Total Critical Time (Minutes): 40 Inpatient Scribe Statement - . Entered by Liliana Zarate, acting as scribe for Dr. Bashir.
[2019-06-09] MEDS: BUDESONIDE NEB 0.5 MG/2 ML AMPUL NEB SCH ×2 (08:38→19:40)
[2019-06-09] MEDS: AMLODIPINE BESYLATE 10 MG TABLET PO SCH (10:00)
[2019-06-09] MEDS: LISINOPRIL 10 MG TABLET PO SCH (10:00)
[2019-06-09] MEDS: 1/2 NORMAL SALINE 1,000 ML IV PRN ×2 (11:08→20:58)
[2019-06-09] MEDS: PANTOPRAZOLE SODIUM 40 MG VIAL IV SCH (11:09)
[2019-06-09] MEDS: DEXAMETHASONE SOD PHOSPHATE INJ 4 MG/1 ML VIAL IV SCH ×2 (11:10→23:00)
[2019-06-09] MEDS: METFORMIN HCL 500 MG TABLET PO SCH ×2 (12:20→18:01)
[2019-06-09] MEDS: DOCUSATE SODIUM 100 MG/10 ML UDC PO SCH ×2 (12:20→18:02)
--- NOTE | 2019-06-09 16:59 | PDOC PROGRESS REPORT ---
Subjective Progress Note for:: 06/09/19 Subjective:: No adverse events overnight. No new complaints. She says today she is been able to eat a little bit of applesauce and tolerated it well. Vital signs been stable. She was seen by speech therapy who recommended getting a modified barium swallow prior to recommending a formal diet. Reason For Visit: ACUTE METABOLIC ENCEPHALOPATHY. DKA Physical Exam Vital Signs: Temp Pulse Resp BP Pulse Ox 98.6 F 82 18 156/82 H 98 06/09/19 16:00 06/09/19 16:24 06/09/19 16:24 06/09/19 16:00 06/09/19 16:24 Intake & Output 06/08/19 06/09/19 06/10/19 06:59 06:59 06:59 Intake Total 1567 2250 1000 Output Total 2590 1250 600 Balance -1023 1000 400 Weight 61.5 kg 61.5 kg General appearance: PRESENT: no acute distress, cooperative, disheveled Respiratory exam: PRESENT: clear to auscultation jaqueline, symmetrical, unlabored. ABSENT: accessory muscle use, crackles, prolonged expiratory phas, rales, rhonchi, tachypnea, wheezes Cardiovascular exam: PRESENT: RRR, +S1, +S2 Pulses: PRESENT: normal carotid pulses Vascular exam: PRESENT: normal capillary refill GI/Abdominal exam: PRESENT: normal bowel sounds, soft. ABSENT: distended, guarding, rebound, tenderness Extremities exam: ABSENT: clubbing, pedal edema Musculoskeletal exam: PRESENT: normal inspection. ABSENT: deformity Neurological exam: PRESENT: alert, awake, oriented to person, oriented to place, oriented to situation Psychiatric exam: PRESENT: appropriate affect, normal mood Skin exam: PRESENT: dry, warm Results Laboratory Results: 06/08/19 05:30 06/08/19 05:30 05/28/19 05/28/19 05/29/19 14:20 14:20 06:55 Creatine Kinase 414 H 1037 H CK-MB (CK-2) 6.78 H Troponin I 0.130 05/29/19 05/31/19 11:15 10:39 Creatine Kinase 1312 H 84 CK-MB (CK-2) Troponin I Impressions: Cervical Spine CT 05/28/19 14:12 IMPRESSION: No fracture or static subluxation of the cervical spine. Multilevel discectomy and fusion from C3 through C7. Head CT 05/28/19 14:12 IMPRESSION: No acute intracranial pathology. EVIDENCE OF ACUTE STROKE: NO. Head CTA 05/29/19 00:00 IMPRESSION: NO CTA EVIDENCE OF STENOSIS OR ANEURYSM OF THE [place]. Interventional Vascular Procedure 05/29/19 00:00 IMPRESSION: Ultrasound guidance for vascular access. Neck CTA 05/29/19 00:00 IMPRESSION: 70- 80% stenosis of the proximal right ICA. Head MRI 05/29/19 15:17 IMPRESSION: Normal but limited due to motion. Recommend repeat when the patient is more stable. EVIDENCE OF ACUTE STROKE: NO. Chest/Abdomen CTA 05/31/19 00:00 IMPRESSION: Left lower lobe pneumonia. No PE. Chest X-Ray 06/08/19 06:00 IMPRESSION: Central line remains in place. Lung wing are clear. NG tube and endotracheal tube have been removed. KUB X-Ray 06/08/19 16:39 IMPRESSION: The NG tube is doubled back upon itself in the distal esophagus. Assessment and Plan - Diagnosis (1) Acute renal failure Qualifiers: Acute renal failure type: unspecified Qualified Code(s): N17.9 - Acute kidney failure, unspecified Is this a current diagnosis for this admission?: Yes Plan: Resolved (2) Acute respiratory failure with hypoxemia Is this a current diagnosis for this admission?: Yes Plan: Resolved (3) Altered mental status Qualifiers: Altered mental status type: coma Coma depth: [place] coma 3-8 Coma timing: in the field (EMT or ambulance) Qualified Code(s): R40.2431 - [place] coma scale score 3-8, in the field [EMT or ambulance] Is this a current diagnosis for this admission?: Yes Plan: Thought to be secondary to Ambien overdose, now resolved (4) Atherosclerosis of right carotid artery Is this a current diagnosis for this admission?: Yes Plan: Could possibly benefit from vascular surgical consultation as an outpatient, no evidence of acute stroke (5) DKA, type 2 Qualifiers: Diabetes mellitus custodial 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 Modified barium swallow is pending. (7) Rhabdomyolysis Qualifiers: Encounter type: initial encounter Is this a current diagnosis for this admission?: Yes Plan: Resolved - Time Time Spent with patient: 15-24 minutes
[2019-06-09] MEDS: ENOXAPARIN SODIUM INJ 40 MG/0.4 ML DISP.SYRIN SUBCUT SCH (18:00)
[2019-06-09] MEDS: QUETIAPINE FUMARATE 100 MG TABLET PO SCH (23:00)
[2019-06-09] MEDS: ASPIRIN 81 MG TABLET, ENT COATED PO SCH (23:00)
[2019-06-09] MEDS: ATORVASTATIN CALCIUM 10 MG TABLET PO SCH (23:00)
[2019-06-10] MEDS: IPRATROPIUM BROMIDE 0.02% NEB 0.5 MG/2.5 ML AMPUL NEB SCH ×3 (00:01→15:58)
[2019-06-10] MEDS: INSULIN LISPRO 100 UNIT/ML 3 ML VIAL SUBCUT SCH ×4 (00:44→18:34)
[2019-06-10] MEDS: LEVOTHYROXINE SODIUM 0.1 MG TABLET NG SCH (06:12)
[2019-06-10] MEDS: 1/2 NORMAL SALINE 1,000 ML IV PRN (07:14)
[2019-06-10] MEDS: BUDESONIDE NEB 0.5 MG/2 ML AMPUL NEB SCH ×2 (07:59→19:51)
[2019-06-10] MEDS: LEVALBUTEROL HCL NEB 1.25 MG/3 ML AMPUL NEB SCH ×3 (08:00→15:58)
[2019-06-10] MEDS ORDERED: ENALAPRILAT DIHYDRATE INJ/PF 1.25 MG/1 ML SDV IV PRN (08:05)
--- NOTE | 2019-06-10 08:51 | PDOC PROGRESS REPORT ---
Subjective Progress Note for:: 06/08/19 Subjective:: patient is 24 hours status post extubation Reason For Visit: ACUTE METABOLIC ENCEPHALOPATHY. DKA Physical Exam Vital Signs: Temp Pulse Resp BP Pulse Ox 98.6 F 81 14 171/89 H 97 06/10/19 00:00 06/10/19 08:00 06/10/19 08:00 06/10/19 00:00 06/10/19 08:15 Intake & Output 06/09/19 06/10/19 06/11/19 06:59 06:59 06:59 Intake Total 2250 3333 Output Total 1250 840 Balance 1000 2493 Weight 61.5 kg 61.2 kg General appearance: PRESENT: no acute distress, well-developed, well-nourished Head exam: PRESENT: atraumatic, normocephalic Eye exam: PRESENT: conjunctiva pink, EOMI, PERRLA. ABSENT: scleral icterus Ear exam: PRESENT: normal external ear exam Mouth exam: PRESENT: moist, tongue midline Neck exam: ABSENT: carotid bruit, JVD, lymphadenopathy, thyromegaly Respiratory exam: PRESENT: rales, symmetrical, unlabored. ABSENT: rhonchi, wheezes Cardiovascular exam: PRESENT: RRR. ABSENT: diastolic murmur, rubs, systolic murmur Pulses: PRESENT: normal dorsalis pedis pul Vascular exam: PRESENT: normal capillary refill GI/Abdominal exam: PRESENT: normal bowel sounds, soft. ABSENT: distended, guarding, mass, organolmegaly, rebound, tenderness Rectal exam: PRESENT: deferred Extremities exam: PRESENT: full ROM. ABSENT: calf tenderness, clubbing, pedal edema Neurological exam: PRESENT: alert, awake, oriented to person, oriented to place, oriented to time, oriented to situation, CN II-XII grossly intact. ABSENT: motor sensory deficit Psychiatric exam: PRESENT: flat affect, normal mood. ABSENT: homicidal ideation, suicidal ideation Skin exam: PRESENT: dry, intact, warm. ABSENT: cyanosis, rash Results Laboratory Results: 06/08/19 05:30 06/08/19 05:30 05/28/19 05/28/19 05/29/19 14:20 14:20 06:55 Creatine Kinase 414 H 1037 H CK-MB (CK-2) 6.78 H Troponin I 0.130 05/29/19 05/31/19 11:15 10:39 Creatine Kinase 1312 H 84 CK-MB (CK-2) Troponin I Impressions: Cervical Spine CT 05/28/19 14:12 IMPRESSION: No fracture or static subluxation of the cervical spine. Multilevel discectomy and fusion from C3 through C7. Head CT 05/28/19 14:12 IMPRESSION: No acute intracranial pathology. EVIDENCE OF ACUTE STROKE: NO. Head CTA 05/29/19 00:00 IMPRESSION: NO CTA EVIDENCE OF STENOSIS OR ANEURYSM OF THE [place]. Interventional Vascular Procedure 05/29/19 00:00 IMPRESSION: Ultrasound guidance for vascular access. Neck CTA 05/29/19 00:00 IMPRESSION: 70- 80% stenosis of the proximal right ICA. Head MRI 05/29/19 15:17 IMPRESSION: Normal but limited due to motion. Recommend repeat when the patient is more stable. EVIDENCE OF ACUTE STROKE: NO. Chest/Abdomen CTA 05/31/19 00:00 IMPRESSION: Left lower lobe pneumonia. No PE. Chest X-Ray 06/08/19 06:00 IMPRESSION: Central line remains in place. Lung wing are clear. NG tube and endotracheal tube have been removed. KUB X-Ray 06/08/19 16:39 IMPRESSION: The NG tube is doubled back upon itself in the distal esophagus. Assessment & Plan - Diagnosis (1) Acute respiratory failure with hypoxemia Is this a current diagnosis for this admission?: Yes Plan: patient is doing well status post extubation, supplemental o2 as necessary (2) Altered mental status Qualifiers: Altered mental status type: coma Coma depth: [place] coma 3-8 Coma timing: in the field (EMT or ambulance) Qualified Code(s): R40.2431 - [place] coma scale score 3-8, in the field [EMT or ambulance] Is this a current diagnosis for this admission?: Yes Plan: continue to monitor (3) Acute metabolic encephalopathy Is this a current diagnosis for this admission?: Yes Plan: acute renal failure and possible drug overdose as empty bill bottle was found - Time Total Critical Time (Minutes): 40 Inpatient Scribe Statement - . Entered by Liliana Zarate, acting as scribe for Dr. Bashir.
--- NOTE | 2019-06-10 10:28 | RADIOLOGY REPORT (SQ) ---
EXAM DESCRIPTION: YENNI SWALLOW COMPLETED DATE/TIME: 06/10/2019 10:19 am REASON FOR STUDY: signs of aspiration after extubation COMPARISON: None. TECHNIQUE: Videofluoroscopic swallowing examination was performed in conjunction with speech patholo gy. Videofluoroscopic imaging was obtained and reviewed and these are the findings: RADIATION DOSE: 1 minutes 43 seconds of fluoroscopy was used. 1 images saved to PACS. LIMITATIONS: None FINDINGS: The patient was brought into the fluoro room and placed upright on a modified barium swall ow chair. The patient was then given multiple pudding consistency mixed with barium to swallow under live fluoroscopic video guidance. According to the Speech Pathologist there was gross laryngeal pen etration and aspiration of the ingested material. There is absent movement of the epiglottis during the swallow. IMPRESSION: LARYNGEAL PENETRATION AND ASPIRATION ABOVE. PLEASE SEE SPEECH PATHOLOGIST REPORT FOR OTHER FINDINGS AND RECOMMENDATIONS. COMMENT: Quality ID [id number]: Final reports for procedures using fluoroscopy that document radiation exp osure indices, or exposure time and number of fluorographic images (if radiation exposure indices are not available) TECHNICAL DOCUMENTATION: JOB ID: [id number] [employer]- All Rights Reserved Reading location - IP/workstation name: [email or web address]
[2019-06-10] MEDS: DOCUSATE SODIUM 100 MG/10 ML UDC PO SCH ×2 (11:30→18:26)
[2019-06-10] MEDS: DEXAMETHASONE SOD PHOSPHATE INJ 4 MG/1 ML VIAL IV SCH ×2 (11:30→22:26)
[2019-06-10] MEDS: AMLODIPINE BESYLATE 10 MG TABLET PO SCH (11:32)
[2019-06-10] MEDS: METFORMIN HCL 500 MG TABLET PO SCH ×2 (11:32→18:27)
[2019-06-10] MEDS: HYDRALAZINE HCL INJ/PF 20 MG/1 ML SDV IV PRN ×2 (14:24→21:06)
[2019-06-10] MEDS: NYSTATIN 500000 UNIT/5 ML UDCUP PO SCH ×3 (14:24→22:25)
--- NOTE | 2019-06-10 15:27 | PDOC PROGRESS REPORT ---
Subjective Progress Note for:: 06/10/19 Subjective:: No adverse events overnight. She had a swallow study this morning and was aspirating with all consistencies. She does not complain of any dyspnea but her breathing sounded coarse even though she showed no signs of respiratory distress. She says overall she feels pretty good. Reason For Visit: ACUTE METABOLIC ENCEPHALOPATHY. DKA Physical Exam Vital Signs: Temp Pulse Resp BP Pulse Ox 98.5 F 89 14 194/89 H 98 06/10/19 12:49 06/10/19 12:49 06/10/19 08:00 06/10/19 12:49 06/10/19 12:49 Intake & Output 06/09/19 06/10/19 06/11/19 06:59 06:59 06:59 Intake Total 2250 3333 377 Output Total 1250 840 Balance 1000 2493 377 Weight 61.5 kg 61.2 kg General appearance: PRESENT: no acute distress, cooperative, disheveled Respiratory exam: PRESENT: Coarse breath sounds bilaterally, symmetrical, unlabored. ABSENT: accessory muscle use, crackles, prolonged expiratory phase, rales, rhonchi, tachypnea, wheezes Cardiovascular exam: PRESENT: RRR, +S1, +S2 Pulses: PRESENT: normal carotid pulses Vascular exam: PRESENT: normal capillary refill GI/Abdominal exam: PRESENT: normal bowel sounds, soft. ABSENT: distended, guarding, rebound, tenderness Extremities exam: ABSENT: clubbing, pedal edema Musculoskeletal exam: PRESENT: normal inspection. ABSENT: deformity Neurological exam: PRESENT: alert, awake, oriented to person, oriented to place, oriented to situation Psychiatric exam: PRESENT: appropriate affect, normal mood Skin exam: PRESENT: dry, warm Results Laboratory Results: 06/08/19 05:30 06/08/19 05:30 05/28/19 05/28/19 05/29/19 14:20 14:20 06:55 Creatine Kinase 414 H 1037 H CK-MB (CK-2) 6.78 H Troponin I 0.130 05/29/19 05/31/19 11:15 10:39 Creatine Kinase 1312 H 84 CK-MB (CK-2) Troponin I Impressions: Cervical Spine CT 05/28/19 14:12 IMPRESSION: No fracture or static subluxation of the cervical spine. Multilevel discectomy and fusion from C3 through C7. Head CT 05/28/19 14:12 IMPRESSION: No acute intracranial pathology. EVIDENCE OF ACUTE STROKE: NO. Head CTA 05/29/19 00:00 IMPRESSION: NO CTA EVIDENCE OF STENOSIS OR ANEURYSM OF THE [place]. Interventional Vascular Procedure 05/29/19 00:00 IMPRESSION: Ultrasound guidance for vascular access. Neck CTA 05/29/19 00:00 IMPRESSION: 70- 80% stenosis of the proximal right ICA. Chest/Abdomen CTA 05/31/19 00:00 IMPRESSION: Left lower lobe pneumonia. No PE. Chest X-Ray 06/08/19 06:00 IMPRESSION: Central line remains in place. Lung wing are clear. NG tube and endotracheal tube have been removed. KUB X-Ray 06/08/19 16:39 IMPRESSION: The NG tube is doubled back upon itself in the distal esophagus. Modified Barium Swallow 06/10/19 00:00 IMPRESSION: LARYNGEAL PENETRATION AND ASPIRATION ABOVE. PLEASE SEE SPEECH PATHOLOGIST REPORT FOR OTHER FINDINGS AND RECOMMENDATIONS. Assessment and Plan - Diagnosis (1) Acute renal failure Qualifiers: Acute renal failure type: unspecified Qualified Code(s): N17.9 - Acute kidney failure, unspecified Is this a current diagnosis for this admission?: Yes Plan: Resolved (2) Acute respiratory failure with hypoxemia Is this a current diagnosis for this admission?: Yes Plan: Resolved (3) Altered mental status Qualifiers: Altered mental status type: coma Coma depth: [place] coma 3-8 Coma timing: in the field (EMT or ambulance) Qualified Code(s): R40.2431 - [place] coma scale score 3-8, in the field [EMT or ambulance] Is this a current diagnosis for this admission?: Yes Plan: Thought to be secondary to Ambien overdose, now resolved (4) Atherosclerosis of right carotid artery Is this a current diagnosis for this admission?: Yes Plan: Could possibly benefit from vascular surgical consultation as an outpatient, no evidence of acute stroke (5) DKA, type 2 Qualifiers: Diabetes mellitus terminal carman insulin use: with skilled nursing use Diabetes mellitus complication detail: with coma Qualified Code(s): E11.11 - Type 2 diabetes mellitus with ketoacidosis with coma; Z79.4 - longterm (current) use of insulin Is this a current diagnosis for this admission?: No Plan: Resolved (6) Rhabdomyolysis Qualifiers: Encounter type: initial encounter Is this a current diagnosis for this admission?: Yes Plan: Resolved (7) Dysphagia Qualifiers: Dysphagia type: unspecified Qualified Code(s): R13.10 - Dysphagia, unspecified Is this a current diagnosis for this admission?: Yes Plan: Failed first modified barium swallow today. Look back in her MRI which was done earlier on in the hospitalization. There was some motion artifact, so I am going to repeat her MRI of her brain to see if she has had a stroke as an etiol ogy for her dysphagia. She is also on steroids to help with any residual laryngeal edema may have occurred as result of a prolonged intubation. Speech therapy is following closely. - Time Time Spent with patient: 15-24 minutes
--- NOTE | 2019-06-10 15:52 | RADIOLOGY REPORT (SQ) ---
EXAM DESCRIPTION: MRI HEAD WITHOUT COMPLETED DATE/TIME: 06/10/2019 3:18 pm REASON FOR STUDY: dysphagia COMPARISON: 05/29/2019 TECHNIQUE: Multiplanar imaging includes non-contrasted T1, T2, FLAIR, and diffusion with ADC map seq uences. Images stored on PACS. LIMITATIONS: None. FINDINGS: ANATOMY: No anomalies. Normal vascular flow voids. Pituitary fossa normal. CSF SPACES: Normal in size and contour. No hemorrhage. CEREBRUM: There is a small old lacunar infarct in the left thalamus. There is no mass. There is no hemorrhage. POSTERIOR FOSSA: No signal alteration. No hemorrhage. No edema, masses or mass effect. Internal nba tory canals, cerebello-pontine angles, mastoids normal. DIFFUSION IMAGING: Negative for acute or sub-acute infarction. ORBITS: No masses. Globes normal. PARANASAL SINUSES: No fluid levels. Mucosa normal. OTHER: No other significant finding. IMPRESSION: No acute intracranial imaging findings. EVIDENCE OF ACUTE STROKE: NO. TECHNICAL DOCUMENTATION: JOB ID: [id number] [employer]- All Rights Reserved Reading location - IP/workstation name: [email or web address]
--- NOTE | 2019-06-10 17:18 | ST Inp Modified Barium Swallow ---
Medical Diagnosis - Medical Diagnoses Medical Diagnosis Description & ICD-10 Code(s): dysphagia ST Inpatient MBS - General Date: 06/10/19 Date of Onset: 06/06/19 - History -: Medical - per EMR: patient admitted 05/28 with altered mental status. Patient was later intubated on 05/31, extubated 06/07 and failed subsequent swallow screen. Was receiving NG feeds, however, NG tube had to be removed due to poor position, has not been reinserted. Patient demonstrated signs of aspiration with ice chip trials and thin liquids at bedside dysphagia assessment on 06/09, MBSS recommended. Medications: Medications Reviewed Allergies: Refer to medical record - Subjective Current PO Diet: Thickened liquids - physician placed diet for nectar liquids and puree solids Current Symptoms: Coughing Pain: Patient reports, 0/5 - Objective Assessment: Upright, Left Lateral, A-P Position - Food Trials Food Trials Used: Pureed The Patient: fed by ST - Assessment Labial Function: Within Normal Limits Lingual Function: Within Normal Limits Mandibular Function: Within Normal Limits Dentition: Full Velo-Pharyngeal Function: Unremarkable Laryngeal Function: Weak Cough, weak voicing - poor vocal adduction heard, breathy voice - Pharyngeal Stage Initiation of Pharyngeal Stage: Delayed - mild delay Decreased Laryngeal Elevation: Yes Reduced Velo-Pharyngeal Closure: no Reduced Pressure Generation: Yes Pre-Swallowing Pooling in Valleculae: Moderate Reduced Epiglottic Excursion: Yes - significant Multiple Swallows With: Ineffective Clearance Post Swallow Residuals in Valleculae: Moderate Post Swallow Residuals in Pyriforms: Moderate Post Swallow Residuals: throughout pharynx Pahryngeal Stage Comments: Aspiration of puree (pudding) seen. Aspiration occured on second swallows to clear residue consistently, silent aspiration seen. Laryngeal vestibule remained open during the swallow due to reduced elevation and reduced epiglottic inversion. Due to weak phonation, high likelihood of poor glottis closure during the swallow. - Impression/Summary Tracheal Aspiration: yes, deep, silent, during swallow, after swallow Productive Cough: No Ineffective Compensatory Strategies: chin down, throat clear & reswallow, hard swallow Patient Presents With: Pharyngeal stage dysph., Severe Risk of Aspiration: Severe - Recommendations NPO: yes Strict Aspitarion Precautions: Yes Dysphagia Therapy with RECRUITMENT DIRECTOR: Yes - treatment indicated to address swallow strengh. Other Recommendations: Treatment goals: Patient will complete tongue base retraction/elevation exercises independently. Patient will demonstrate completion of laryngeal elevation exercises (Danis, Effortful Swallow) for improved airway protection. Patient will complete vocal adduction exercises for improved airway protection. - Time Total Time: 30 Total Timed Minutes: 30
[2019-06-10] MEDS: ENOXAPARIN SODIUM INJ 40 MG/0.4 ML DISP.SYRIN SUBCUT SCH (18:33)
[2019-06-10] MEDS: ASPIRIN 81 MG TABLET, ENT COATED PO SCH (21:25)
[2019-06-10] MEDS: ATORVASTATIN CALCIUM 10 MG TABLET PO SCH (21:25)
[2019-06-10] MEDS: QUETIAPINE FUMARATE 100 MG TABLET PO SCH (21:26)
[2019-06-11] MEDS: LEVALBUTEROL HCL NEB 1.25 MG/3 ML AMPUL NEB SCH ×3 (00:03→15:34)
[2019-06-11] MEDS: IPRATROPIUM BROMIDE 0.02% NEB 0.5 MG/2.5 ML AMPUL NEB SCH ×3 (00:03→15:34)
[2019-06-11] MEDS: INSULIN LISPRO 100 UNIT/ML 3 ML VIAL SUBCUT SCH ×4 (00:26→18:46)
[2019-06-11] MEDS: POTASSI CL 20 MEQ/D5-1/2NS 1L 1,000 ML IV PRN ×2 (00:29→21:45)
[2019-06-11] MEDS: LEVOTHYROXINE SODIUM 0.1 MG TABLET NG SCH (06:29)
[2019-06-11] MEDS: BUDESONIDE NEB 0.5 MG/2 ML AMPUL NEB SCH ×2 (08:34→19:48)
[2019-06-11] MEDS: METFORMIN HCL 500 MG TABLET PO SCH ×2 (09:36→18:04)
[2019-06-11] MEDS: AMLODIPINE BESYLATE 10 MG TABLET PO SCH (09:36)
[2019-06-11] MEDS: LISINOPRIL 10 MG TABLET PO SCH (09:36)
[2019-06-11] MEDS: DOCUSATE SODIUM 100 MG/10 ML UDC PO SCH (09:36)
[2019-06-11] MEDS: DEXAMETHASONE SOD PHOSPHATE INJ 4 MG/1 ML VIAL IV SCH ×2 (09:42→22:02)
[2019-06-11] MEDS: NYSTATIN 500000 UNIT/5 ML UDCUP PO SCH ×4 (09:42→22:02)
[2019-06-11] MEDS: DOCUSATE SODIUM 100 MG CAPSULE PO SCH ×2 (09:49→18:03)
[2019-06-11] MEDS ORDERED: POLYETHYLENE GLYCOL 3350 POWDER 17 GM/1 PACKET PO PRN (10:00)
--- NOTE | 2019-06-11 17:04 | PDOC PROGRESS REPORT ---
Subjective Progress Note for:: 06/11/19 Subjective:: No adverse events overnight. No complaints. Repeat MRI showed evidence of an old left thalamic stroke but nothing new. She says she feels fine and does not feel out of the ordinary except for trouble she is having swallowing. She did poorly on a modified barium swallow yesterday and they are still recommending that she stay n.p.o. but she received a series of exercises to do. Reason For Visit: ACUTE METABOLIC ENCEPHALOPATHY. DKA Physical Exam Vital Signs: Temp Pulse Resp BP Pulse Ox 98.4 F 79 18 168/80 H 94 06/11/19 11:39 06/11/19 15:36 06/11/19 15:36 06/11/19 11:39 06/11/19 15:36 Intake & Output 06/10/19 06/11/19 06/12/19 06:59 06:59 06:59 Intake Total 3333 1627 Output Total 840 2325 700 Balance 7953 -896 -700 Weight 61.2 kg 60.2 kg General appearance: PRESENT: no acute distress, cooperative, disheveled Respiratory exam: PRESENT: Coarse breath sounds bilaterally, symmetrical, unlabored. ABSENT: accessory muscle use, crackles, prolonged expiratory phase, rales, rhonchi, tachypnea, wheezes Cardiovascular exam: PRESENT: RRR, +S1, +S2 Pulses: PRESENT: normal carotid pulses Vascular exam: PRESENT: normal capillary refill GI/Abdominal exam: PRESENT: normal bowel sounds, soft. ABSENT: distended, guarding, rebound, tenderness Extremities exam: ABSENT: clubbing, pedal edema Musculoskeletal exam: PRESENT: normal inspection. ABSENT: deformity Neurological exam: PRESENT: alert, awake, oriented to person, oriented to place, oriented to situation Psychiatric exam: PRESENT: appropriate affect, normal mood Skin exam: PRESENT: dry, warm Results Laboratory Results: 06/08/19 05:30 06/08/19 05:30 05/28/19 05/28/19 05/29/19 14:20 14:20 06:55 Creatine Kinase 414 H 1037 H CK-MB (CK-2) 6.78 H Troponin I 0.130 05/29/19 05/31/19 11:15 10:39 Creatine Kinase 1312 H 84 CK-MB (CK-2) Troponin I Impressions: Cervical Spine CT 05/28/19 14:12 IMPRESSION: No fracture or static subluxation of the cervical spine. Multilevel discectomy and fusion from C3 through C7. Head CT 05/28/19 14:12 IMPRESSION: No acute intracranial pathology. EVIDENCE OF ACUTE STROKE: NO. Head CTA 05/29/19 00:00 IMPRESSION: NO CTA EVIDENCE OF STENOSIS OR ANEURYSM OF THE [place]. Interventional Vascular Procedure 05/29/19 00:00 IMPRESSION: Ultrasound guidance for vascular access. Neck CTA 05/29/19 00:00 IMPRESSION: 70- 80% stenosis of the proximal right ICA. Chest/Abdomen CTA 05/31/19 00:00 IMPRESSION: Left lower lobe pneumonia. No PE. Chest X-Ray 06/08/19 06:00 IMPRESSION: Central line remains in place. Lung wing are clear. NG tube and endotracheal tube have been removed. KUB X-Ray 06/08/19 16:39 IMPRESSION: The NG tube is doubled back upon itself in the distal esophagus. Head MRI 06/10/19 00:00 IMPRESSION: No acute intracranial imaging findings. EVIDENCE OF ACUTE STROKE: NO. Modified Barium Swallow 06/10/19 00:00 IMPRESSION: LARYNGEAL PENETRATION AND ASPIRATION ABOVE. PLEASE SEE SPEECH PATHOLOGIST REPORT FOR OTHER FINDINGS AND RECOMMENDATIONS. Assessment and Plan - Diagnosis (1) Acute renal failure Qualifiers: Acute renal failure type: unspecified Qualified Code(s): N17.9 - Acute kidney failure, unspecified Is this a current diagnosis for this admission?: Yes Plan: Resolved (2) Acute respiratory failure with hypoxemia Is this a current diagnosis for this admission?: Yes Plan: Resolved (3) Altered mental status Qualifiers: Altered mental status type: coma Coma depth: [place] coma 3-8 Coma timing: in the field (EMT or ambulance) Qualified Code(s): R40.2431 - [place] coma scale score 3-8, in the field [EMT or ambulance] Is this a current diagnosis for this admission?: Yes Plan: Thought to be secondary to Ambien overdose, now resolved (4) Atherosclerosis of right carotid artery Is this a current diagnosis for this admission?: Yes Plan: Could possibly benefit from vascular surgical consultation as an outpatient, no evidence of acute stroke (5) DKA, type 2 Qualifiers: Diabetes mellitus chcf insulin use: with sports writer use Diabetes mellitus complication detail: with coma Qualified Code(s): E11.11 - Type 2 diabetes mellitus with ketoacidosis with coma; Z79.4 - detention (current) use of insulin Is this a current diagnosis for this admission?: No Plan: Resolved (6) Rhabdomyolysis Qualifiers: Encounter type: initial encounter Is this a current diagnosis for this admission?: Yes Plan: Resolved (7) Dysphagia Qualifiers: Dysphagia type: unspecified Qualified Code(s): R13.10 - Dysphagia, unspecified Is this a current diagnosis for this admission?: Yes Plan: We talked about her options. She is to go to a group home facility but no one is going to take her if she has an NG tube or Dobb[place] tube. We discussed the option of a feeding tube such as a PEG tube. Going to give her a day of trying the exercises and will have her evaluated by speech therapy tomorrow. If she is not making any progress we will going to have to consider PEG tube in the hopes that it will be short-term. - Time Time Spent with patient: 15-24 minutes
[2019-06-11] MEDS: ENOXAPARIN SODIUM INJ 40 MG/0.4 ML DISP.SYRIN SUBCUT SCH (18:46)
[2019-06-11] MEDS: ASPIRIN 81 MG TABLET, ENT COATED PO SCH (21:53)
[2019-06-11] MEDS: ATORVASTATIN CALCIUM 10 MG TABLET PO SCH (21:54)
[2019-06-11] MEDS: QUETIAPINE FUMARATE 100 MG TABLET PO SCH (21:55)
[2019-06-12] MEDS: INSULIN LISPRO 100 UNIT/ML 3 ML VIAL SUBCUT SCH ×4 (00:07→18:52)
[2019-06-12] MEDS: LEVALBUTEROL HCL NEB 1.25 MG/3 ML AMPUL NEB SCH ×3 (00:16→15:14)
[2019-06-12] MEDS: IPRATROPIUM BROMIDE 0.02% NEB 0.5 MG/2.5 ML AMPUL NEB SCH ×3 (00:17→15:14)
[2019-06-12] MEDS: LEVOTHYROXINE SODIUM 0.1 MG TABLET PO SCH (05:07)
[2019-06-12] MEDS: BUDESONIDE NEB 0.5 MG/2 ML AMPUL NEB SCH ×2 (07:39→20:47)
[2019-06-12] MEDS: AMLODIPINE BESYLATE 10 MG TABLET PO SCH (11:18)
[2019-06-12] MEDS: LISINOPRIL 10 MG TABLET PO SCH (11:18)
[2019-06-12] MEDS: DEXAMETHASONE SOD PHOSPHATE INJ 4 MG/1 ML VIAL IV SCH ×2 (11:18→22:52)
[2019-06-12] MEDS: NYSTATIN 500000 UNIT/5 ML UDCUP PO SCH ×4 (11:19→22:52)
[2019-06-12] MEDS: DOCUSATE SODIUM 100 MG CAPSULE PO SCH ×2 (11:19→18:51)
[2019-06-12] MEDS: METFORMIN HCL 500 MG TABLET PO SCH ×2 (11:19→18:51)
--- NOTE | 2019-06-12 12:31 | PDOC CONSULTATION ---
Consultation Consult Date: 06/12/19 Provider Consulted: LEO COLES Consult reason:: PEG tube placement History of Present Illness Admission Date/PCP: 05/28/19 17:41 DELFINA NIETO MD Patient complains of: unable to swallow History of Present Illness: SHELLEY RODRÍGUEZ is a 54 year old female who was admitted for loss of consciousness due to DKA and Ambien overdose. Patient able to eat and drink prior to this episode a week ago. She failed barium swallow and speech t herapist evaluation and therefore needed a PEG tube hopefully on a temporary basis. Past Medical History Pulmonary Medical History: Reports: Chronic Obstructive Pulmonary Disease (COPD) Endocrine Medical History: Reports: Diabetes Mellitus Type 2, Hypothyroidism Psychiatric Medical History: Reports: Depression Traumatic Medical History: Denies: Gunshot Wound, Pneumothorax Hematology: Denies: Sickle Cell Disease Infectious Medical History: Denies: HIV Social History Smoking Status: Current Every Day Smoker Cigarettes Packs Per Day: 2 Hx Recreational Drug Use: Yes Hx Prescription Drug Abuse: Yes - Advance Directive Resuscitation Status: Full Code Family History Family History: None - Unable to be obtained due to altered mental status. Parental Family History Reviewed: Yes Children Family History Reviewed: No Sibling(s) Family History Reviewed.: No Medication/Allergy Home Medications: Atorvastatin Calcium [Lipitor 10 mg Tablet] 10 mg PO QHS 05/28/19 Baclofen [Baclofen 10 mg Tablet] 10 mg PO TIDP PRN 05/28/19 Dexamethasone 2 mg PO Q6 05/28/19 Gabapentin [Neurontin] 800 mg PO QIDP PRN 05/28/19 Insulin Lispro [Humalog Kwikpen U-100] See Protocol SQ MEALS 05/28/19 Levothyroxine Sodium [Synthroid] 200 mcg PO Q6AM 05/28/19 Lisinopril [Prinivil] 20 mg PO DAILY 05/28/19 Metformin HCl [Glucophage] 1,000 mg PO BID 05/28/19 Quetiapine Fumarate [Seroquel 100 mg Tablet] 100 mg PO QHS 05/28/19 Zolpidem Tartrate [Ambien] 10 mg PO HSP PRN 05/28/19 Allergies/Adverse Reactions: Penicillins Allergy (Verified 05/28/19 18:43) Review of Systems Constitutional: PRESENT: as per HPI Physical Exam Vital Signs: Temp Pulse Resp BP Pulse Ox 98.3 F 68 16 189/87 H 100 06/12/19 11:14 06/12/19 11:14 06/12/19 11:14 06/12/19 11:14 06/12/19 11:14 Intake & Output 06/11/19 06/12/19 06/13/19 06:59 06:59 06:59 Intake Total 1627 1200 Output Total 2326 5840 300 Balance -698 -2250 -300 Weight 60.2 kg 59.8 kg General appearance: PRESENT: no acute distress Eye exam: PRESENT: conjunctiva pink Mouth exam: PRESENT: moist Respiratory exam: PRESENT: clear to auscultation jaqueline Cardiovascular exam: PRESENT: RRR Pulses: PRESENT: normal radial pulses Vascular exam: PRESENT: normal capillary refill GI/Abdominal exam: PRESENT: soft Rectal exam: PRESENT: deferred Psychiatric exam: PRESENT: appropriate affect Skin exam: PRESENT: normal color, warm Results Laboratory Results: 06/08/19 05:30 06/08/19 05:30 05/28/19 05/28/19 05/29/19 14:20 14:20 06:55 Creatine Kinase 414 H 1037 H CK-MB (CK-2) 6.78 H Troponin I 0.130 05/29/19 05/31/19 11:15 10:39 Creatine Kinase 1312 H 84 CK-MB (CK-2) Troponin I Impressions: Cervical Spine CT 05/28/19 14:12 IMPRESSION: No fracture or static subluxation of the cervical spine. Multilevel discectomy and fusion from C3 through C7. Head CT 05/28/19 14:12 IMPRESSION: No acute intracranial pathology. EVIDENCE OF ACUTE STROKE: NO. Head CTA 05/29/19 00:00 IMPRESSION: NO CTA EVIDENCE OF STENOSIS OR ANEURYSM OF THE [place]. Interventional Vascular Procedure 05/29/19 00:00 IMPRESSION: Ultrasound guidance for vascular access. Neck CTA 05/29/19 00:00 IMPRESSION: 70- 80% stenosis of the proximal right ICA. Chest/Abdomen CTA 05/31/19 00:00 IMPRESSION: Left lower lobe pneumonia. No PE. Chest X-Ray 06/08/19 06:00 IMPRESSION: Central line remains in place. Lung wing are clear. NG tube and endotracheal tube have been removed. KUB X-Ray 06/08/19 16:39 IMPRESSION: The NG tube is doubled back upon itself in the distal esophagus. Head MRI 06/10/19 00:00 IMPRESSION: No acute intracranial imaging findings. EVIDENCE OF ACUTE STROKE: NO. Modified Barium Swallow 06/10/19 00:00 IMPRESSION: LARYNGEAL PENETRATION AND ASPIRATION ABOVE. PLEASE SEE SPEECH PATHOLOGIST REPORT FOR OTHER FINDINGS AND RECOMMENDATIONS. Assessment & Plan - Diagnosis (1) failure to swallow Is this a current diagnosis for this admission?: Yes - Time Time Spent: 30 to 50 Minutes - Inpatient Certification Medical Necessity: Need for Surgery - Plan Summary Plan Summary: for PEG tubeplacement today or tomorrow by DR Poon
[2019-06-12] MEDS ORDERED: PROPOFOL INJ 200 MG/20 ML VIAL IV ONE (13:07)
--- NOTE | 2019-06-12 14:58 | PDOC PROGRESS REPORT ---
Subjective Progress Note for:: 06/12/19 Subjective:: No adverse events overnight. No new complaints. She tried again with speech therapy today and did not do well. She is ready to go forward with a PEG tube in the hopes that it will be temporary. Reason For Visit: ACUTE METABOLIC ENCEPHALOPATHY. DKA Physical Exam Vital Signs: Temp Pulse Resp BP Pulse Ox 98.3 F 80 16 189/87 H 100 06/12/19 11:14 06/12/19 14:00 06/12/19 11:14 06/12/19 11:14 06/12/19 11:14 Intake & Output 06/11/19 06/12/19 06/13/19 06:59 06:59 06:59 Intake Total 1627 1200 Output Total 2325 2350 300 Balance -698 -1150 -300 Weight 60.2 kg 59.8 kg General appearance: PRESENT: no acute distress, cooperative, disheveled Respiratory exam: PRESENT: Coarse breath sounds bilaterally, symmetrical, unlabored. ABSENT: accessory muscle use, crackles, prolonged expiratory phase, rales, rhonchi, tachypnea, wheezes Cardiovascular exam: PRESENT: RRR, +S1, +S2 Pulses: PRESENT: normal carotid pulses Vascular exam: PRESENT: normal capillary refill GI/Abdominal exam: PRESENT: normal bowel sounds, soft. ABSENT: distended, guarding, rebound, tenderness Extremities exam: ABSENT: clubbing, pedal edema Musculoskeletal exam: PRESENT: normal inspection. ABSENT: deformity Neurological exam: PRESENT: alert, awake, oriented to person, oriented to place, oriented to situation Psychiatric exam: PRESENT: appropriate affect, normal mood Skin exam: PRESENT: dry, warm Results Laboratory Results: 06/08/19 05:30 06/08/19 05:30 05/28/19 05/28/19 05/29/19 14:20 14:20 06:55 Creatine Kinase 414 H 1037 H CK-MB (CK-2) 6.78 H Troponin I 0.130 05/29/19 05/31/19 11:15 10:39 Creatine Kinase 1312 H 84 CK-MB (CK-2) Troponin I Impressions: Cervical Spine CT 05/28/19 14:12 IMPRESSION: No fracture or static subluxation of the cervical spine. Multilev el discectomy and fusion from C3 through C7. Head CT 05/28/19 14:12 IMPRESSION: No acute intracranial pathology. EVIDENCE OF ACUTE STROKE: NO. Head CTA 05/29/19 00:00 IMPRESSION: NO CTA EVIDENCE OF STENOSIS OR ANEURYSM OF THE [place]. Interventional Vascular Procedure 05/29/19 00:00 IMPRESSION: Ultrasound guidance for vascular access. Neck CTA 05/29/19 00:00 IMPRESSION: 70- 80% stenosis of the proximal right ICA. Chest/Abdomen CTA 05/31/19 00:00 IMPRESSION: Left lower lobe pneumonia. No PE. Chest X-Ray 06/08/19 06:00 IMPRESSION: Central line remains in place. Lung wing are clear. NG tube and endotracheal tube have been removed. KUB X-Ray 06/08/19 16:39 IMPRESSION: The NG tube is doubled back upon itself in the distal esophagus. Head MRI 06/10/19 00:00 IMPRESSION: No acute intracranial imaging findings. EVIDENCE OF ACUTE STROKE: NO. Modified Barium Swallow 06/10/19 00:00 IMPRESSION: LARYNGEAL PENETRATION AND ASPIRATION ABOVE. PLEASE SEE SPEECH PATHOLOGIST REPORT FOR OTHER FINDINGS AND RECOMMENDATIONS. Assessment and Plan - Diagnosis (1) Acute renal failure Qualifiers: Acute renal failure type: unspecified Qualified Code(s): N17.9 - Acute kidney failure, unspecified Is this a current diagnosis for this admission?: Yes Plan: Resolved (2) Acute respiratory failure with hypoxemia Is this a current diagnosis for this admission?: Yes Plan: Resolved (3) Altered mental status Qualifiers: Altered mental status type: coma Coma depth: [place] coma 3-8 Coma timing: in the field (EMT or ambulance) Qualified Code(s): R40.2431 - [place] coma scale score 3-8, in the field [EMT or ambulance] Is this a current diagnosis for this admission?: Yes Plan: Thought to be secondary to Ambien overdose, now resolved (4) Atherosclerosis of right carotid artery Is this a current diagnosis for this admission?: Yes Plan: Could possibly benefit from vascular surgical consultation as an outpatient, no evidence of acute stroke (5) DKA, type 2 Qualifiers: Diabetes mellitus [place] insulin use: with meterman use Diabetes mellitus complication detail: with coma Qualified Code(s): E11.11 - Type 2 diabetes mellitus with ketoacidosis with coma; Z79.4 - nursing home (current) use of insulin Is this a current diagnosis for this admission?: No Plan: Resolved (6) Rhabdomyolysis Qualifiers: Encounter type: initial encounter Is this a current diagnosis for this admission?: Yes Plan: Resolved (7) Dysphagia Qualifiers: Dysphagia type: unspecified Qualified Code(s): R13.10 - Dysphagia, unspeci fied Is this a current diagnosis for this admission?: Yes Plan: She is ready to go forward with a PEG tube. I talked to the surgical service a nd they are going to get her set up have a tube put in. When she gets that done, will consult dietary for tube feeding recommendations.
[2019-06-12] MEDS ORDERED: METRONIDAZOLE 500 MG/NS RTU 500 MG/100 ML RTUPB IV ONE (18:07)
[2019-06-12] MEDS: FENTANYL CITRATE INJ/PF 100 MCG/2 ML AMPUL ONE ×2 (18:30→18:35)
[2019-06-12] MEDS ORDERED: FENTANYL CITRATE INJ/PF 100 MCG/2 ML AMPUL IV PRN ×3 (18:41)
[2019-06-12] MEDS ORDERED: DIPHENHYDRAMINE HCL 50 MG/ML VIAL IV PRN (18:41)
[2019-06-12] MEDS ORDERED: MORPHINE SULFATE 10 MG/ML INJ IV PRN (18:41)
[2019-06-12] MEDS ORDERED: MEPERIDINE HCL/PF INJ 25 MG/1 ML DISP.SYRIN IV PRN (18:41)
[2019-06-12] MEDS ORDERED: PROMETHAZINE HCL INJ 25 MG/1 ML VIAL IV PRN ×2 (18:41)
[2019-06-12] MEDS ORDERED: ONDANSETRON HCL INJ/PF 4 MG/2 ML SDV IV PRN (18:41)
[2019-06-12] MEDS: ENOXAPARIN SODIUM INJ 40 MG/0.4 ML DISP.SYRIN SUBCUT SCH (18:52)
[2019-06-12] MEDS ORDERED: ACETAMINOPHEN 1,000 MG/100 ML RTUPB IV ONE (19:02)
[2019-06-12] MEDS ORDERED: HYDROMORPHONE HCL INJ/PF 2 MG/ML AMPULE ONE (19:02)
[2019-06-12] MEDS: ASPIRIN 81 MG TABLET, ENT COATED PO SCH (22:49)
[2019-06-12] MEDS: ATORVASTATIN CALCIUM 10 MG TABLET PO SCH (22:49)
[2019-06-12] MEDS: QUETIAPINE FUMARATE 100 MG TABLET PO SCH (22:50)
[2019-06-12] MEDS: POTASSI CL 20 MEQ/D5-1/2NS 1L 1,000 ML IV PRN (22:56)
[2019-06-13] MEDS: INSULIN LISPRO 100 UNIT/ML 3 ML VIAL SUBCUT SCH ×5 (00:08→23:33)
[2019-06-13] MEDS: IPRATROPIUM BROMIDE 0.02% NEB 0.5 MG/2.5 ML AMPUL NEB SCH ×4 (00:43→23:49)
[2019-06-13] MEDS: LEVALBUTEROL HCL NEB 1.25 MG/3 ML AMPUL NEB SCH ×4 (00:43→23:49)
[2019-06-13] MEDS: LEVOTHYROXINE SODIUM 0.1 MG TABLET PO SCH (06:49)
[2019-06-13] MEDS: BUDESONIDE NEB 0.5 MG/2 ML AMPUL NEB SCH ×2 (07:56→19:35)
[2019-06-13] MEDS: METFORMIN HCL 500 MG TABLET PO SCH ×2 (13:51→17:20)
[2019-06-13] MEDS: DEXAMETHASONE SOD PHOSPHATE INJ 4 MG/1 ML VIAL IV SCH ×2 (13:51→23:20)
[2019-06-13] MEDS: DOCUSATE SODIUM 100 MG CAPSULE PO SCH ×2 (13:51→18:34)
[2019-06-13] MEDS: AMLODIPINE BESYLATE 10 MG TABLET PO SCH (13:51)
[2019-06-13] MEDS: NYSTATIN 500000 UNIT/5 ML UDCUP PO SCH ×4 (13:51→23:20)
[2019-06-13] MEDS: LISINOPRIL 10 MG TABLET PO SCH (13:52)
[2019-06-13] MEDS ORDERED: KETOROLAC TROMETHAMINE INJ/PF 30 MG/1 ML SDV IV ONE (16:15)
--- NOTE | 2019-06-13 16:32 | PDOC PROGRESS REPORT ---
Subjective Progress Note for:: 06/13/19 Subjective:: No adverse events overnight. She got her PEG tube yesterday and tolerated the procedure well. Were awaiting confirmation from surgery that we can use the tube to start feeds and medications. She says she feels pretty good. She is agreeable to going to a rehab center. Reason For Visit: ACUTE METABOLIC ENCEPHALOPATHY. DKA Physical Exam Vital Signs: Temp Pulse Resp BP Pulse Ox 98.6 F 75 16 170/85 H 97 06/13/19 04:00 06/13/19 16:12 06/13/19 16:12 06/13/19 12:19 06/13/19 16:12 Intake & Output 06/12/19 06/13/19 06/14/19 06:59 06:59 06:59 Intake Total 1200 1500 Output Total 2350 1250 Balance -1150 250 Weight 59.8 kg 58.6 kg General appearance: PRESENT: no acute distress, cooperative, disheveled Respiratory exam: PRESENT: Coarse breath sounds bilaterally, symmetrical, unl abored. ABSENT: accessory muscle use, crackles, prolonged expiratory phase, rales, rhonchi, tachypnea, wheezes Cardiovascular exam: PRESENT: RRR, +S1, +S2 Pulses: PRESENT: normal carotid pulses Vascular exam: PRESENT: normal capillary refill GI/Abdominal exam: PRESENT: normal bowel sounds, soft, has on abdominal binder. ABSENT: distended, guarding, rebound, tenderness Extremities exam: ABSENT: clubbing, pedal edema Musculoskeletal exam: PRESENT: normal inspection. ABSENT: deformity Neurological exam: PRESENT: alert, awake, oriented to person, oriented to place, oriented to situation Psychiatric exam: PRESENT: appropriate affect, normal mood Skin exam: PRESENT: dry, warm Results Laboratory Results: 06/08/19 05:30 06/08/19 05:30 05/28/19 05/28/19 05/29/19 14:20 14:20 06:55 Creatine Kinase 414 H 1037 H CK-MB (CK-2) 6.78 H Troponin I 0.130 05/29/19 05/31/19 11:15 10:39 Creatine Kinase 1312 H 84 CK-MB (CK-2) Troponin I Impressions: Cervical Spine CT 05/28/19 14:12 IMPRESSION: No fracture or static subluxation of the cervical spine. Multilevel discectomy and fusion from C3 through C7. Head CT 05/28/19 14:12 IMPRESSION: No acute intracranial pathology. EVIDENCE OF ACUTE STROKE: NO. Head CTA 05/29/19 00:00 IMPRESSION: NO CTA EVIDENCE OF STENOSIS OR ANEURYSM OF THE [place]. Interventional Vascular Procedure 05/29/19 00:00 IMPRESSION: Ultrasound guidance for vascular access. Neck CTA 05/29/19 00:00 IMPRESSION: 70- 80% stenosis of the proximal right ICA. Chest/Abdomen CTA 05/31/19 00:00 IMPRESSION: Left lower lobe pneumonia. No PE. Chest X-Ray 06/08/19 06:00 IMPRESSION: Central line remains in place. Lung wing are clear. NG tube and endotracheal tube have been removed. KUB X-Ray 06/08/19 16:39 IMPRESSION: The NG tube is doubled back upon itself in the distal esophagus. Head MRI 06/10/19 00:00 IMPRESSION: No acute intracranial imaging findings. EVIDENCE OF ACUTE STROKE: NO. Modified Barium Swallow 06/10/19 00:00 IMPRESSION: LARYNGEAL PENETRATION AND ASPIRATION ABOVE. PLEASE SEE SPEECH PATHOLOGIST REPORT FOR OTHER FINDINGS AND RECOMMENDATIONS. Assessment and Plan - Diagnosis (1) Acute renal failure Qualifiers: Acute renal failure type: unspecified Qualified Code(s): N17.9 - Acute kidney failure, unspecified Is this a current diagnosis for this admission?: Yes Plan: Resolved (2) Acute respiratory failure with hypoxemia Is this a current diagnosis for this admission?: Yes Plan: Resolved (3) Altered mental status Qualifiers: Altered mental status type: coma Coma depth: [place] coma 3-8 Coma timing: in the field (EMT or ambulance) Qualified Code(s): R40.2431 - [place] coma scale score 3-8, in the field [EMT or ambulance] Is this a current diagnosis for this admission?: Yes Plan: Thought to be secondary to Ambien overdose, now resolved (4) Atherosclerosis of right carotid artery Is this a current diagnosis for this admission?: Yes Plan: Could possibly benefit from vascular surgical consultation as an outpatient, no evidence of acute stroke (5) DKA, type 2 Qualifiers: Diabetes mellitus nursing home insulin use: with nursing home use Diabetes mellitus complication detail: with coma Qualified Code(s): E11.11 - Type 2 diabetes mellitus with ketoacidosis with coma; Z79.4 - [facility] (current) use of insulin Is this a current diagnosis for this admission?: No Plan: Resolved (6) Rhabdomyolysis Qualifiers: Encounter type: initial encounter Is this a current diagnosis for this admission?: Yes Plan: Resolved (7) Dysphagia Qualifiers: Dysphagia type: unspecified Qualified Code(s): R13.10 - Dysphagia, unspecified Is this a current diagnosis for this admission?: Yes Plan: Had PEG tube placed. Plan to start tube feeds and titrate to goal per dietary recommendations. Once were able to do this, we will also start her oral medications via the tube. When she is up to goal and tolerating it, she can be placed in rehab. - Time Time Spent with patient: 15-24 minutes
--- NOTE | 2019-06-13 16:38 | PDOC PROGRESS REPORT ---
Subjective Progress Note for:: 06/13/19 Subjective:: This is a 54-year-old female with dysphasia and aspiration, requiring gastrostomy. She is postoperative day 1 after percutaneous endoscopic gastrostomy. She is doing well. She reports minimal pain. She is eager to use her gastrostomy to eat. She denies chest pain, fevers, chills, nausea, vomiting, hematemesis, melena, headache, dizziness, orthostasis. She does report mild abdominal tenderness at the gastrostomy site. Reason For Visit: ACUTE METABOLIC ENCEPHALOPATHY. DKA Physical Exam Vital Signs: Temp Pulse Resp BP Pulse Ox 98.6 F 75 16 170/85 H 97 06/13/19 04:00 06/13/19 16:12 06/13/19 16:12 06/13/19 12:19 06/13/19 16:12 Intake & Output 06/12/19 06/13/19 06/14/19 06:59 06:59 06:59 Intake Total 1200 1500 Output Total 2350 1250 Balance -1150 250 Weight 59.8 kg 58.6 kg General appearance: PRESENT: no acute distress, cooperative Head exam: PRESENT: atraumatic, normocephalic Eye exam: PRESENT: EOMI, PERRLA. ABSENT: scleral icterus Mouth exam: PRESENT: moist, neck supple Neck exam: ABSENT: meningismus, tenderness, thyromegaly, tracheal deviation Respiratory exam: PRESENT: chest wall tenderness, tachypnea. ABSENT: unlabored Cardiovascular exam: PRESENT: RRR Pulses: PRESENT: normal radial pulses GI/Abdominal exam: PRESENT: soft, tenderness - At gastrostomy site. ABSENT: distended, firm, guarding, rigid Rectal exam: PRESENT: deferred Musculoskeletal exam: PRESENT: deformity Neurological exam: PRESENT: alert, awake, oriented to person, oriented to place, oriented to time, oriented to situation, CN II-XII grossly intact Psychiatric exam: ABSENT: agitated, anxious, depressed Focused psych exam: ABSENT: delusional Skin exam: ABSENT: cyanosis, erythema, jaundice Results Laboratory Results: 06/08/19 05:30 06/08/19 05:30 05/28/19 05/28/19 05/29/19 14:20 14:20 06:55 Creatine Kinase 414 H 1037 H CK-MB (CK-2) 6.78 H Troponin I 0.130 05/29/19 05/31/19 11:15 10:39 Creatine Kinase 1312 H 84 CK-MB (CK-2) Troponin I Impressions: Cervical Spine CT 05/28/19 14:12 IMPRESSION: No fracture or static subluxation of the cervical spine. Multilevel discectomy and fusion from C3 through C7. Head CT 05/28/19 14:12 IMPRESSION: No acute intracranial pathology. EVIDENCE OF ACUTE STROKE: NO. Head CTA 05/29/19 00:00 IMPRESSION: NO CTA EVIDENCE OF STENOSIS OR ANEURYSM OF THE [place]. Interventional Vascular Procedure 05/29/19 00:00 IMPRESSION: Ultrasound guidance for vascular access. Neck CTA 05/29/19 00:00 IMPRESSION: 70- 80% stenosis of the proximal right ICA. Chest/Abdomen CTA 05/31/19 00:00 IMPRESSION: Left lower lobe pneumonia. No PE. Chest X-Ray 06/08/19 06:00 IMPRESSION: Central line remains in place. Lung wing are clear. NG tube and endotracheal tube have been removed. KUB X-Ray 06/08/19 16:39 IMPRESSION: The NG tube is doubled back upon itself in the distal esophagus. Head MRI 06/10/19 00:00 IMPRESSION: No acute intracranial imaging findings. EVIDENCE OF ACUTE STROKE: NO. Modified Barium Swallow 06/10/19 00:00 IMPRESSION: LARYNGEAL PENETRATION AND ASPIRATION ABOVE. PLEASE SEE SPEECH PATHOLOGIST REPORT FOR OTHER FINDINGS AND RECOMMENDATIONS. Assessment & Plan - Diagnosis (1) Dysphagia Qualifiers: Dysphagia type: unspecified Qualified Code(s): R13.10 - Dysphagia, unspecified Is this a current diagnosis for this admission?: Yes - Plan Summary Plan Summary: This is a 54-year-old female with dysphagia, status post percutaneous endoscopic gastrostomy. She is doing well. It is okay for nursing staff to use the gastrostomy. I have told the patient that if the tube becomes dislodged within 4 weeks of the operation, surgical reimplantation is necessary. She is to contact me immediately with any trouble or dysfunction of her gastrostomy tube. I will see the patient again as needed. Please renotify with any questions or concerns.
[2019-06-13] MEDS: POTASSI CL 20 MEQ/D5-1/2NS 1L 1,000 ML IV PRN (18:27)
[2019-06-13] MEDS: ENOXAPARIN SODIUM INJ 40 MG/0.4 ML DISP.SYRIN SUBCUT SCH (21:12)
[2019-06-13] MEDS: ASPIRIN 81 MG TABLET, ENT COATED PO SCH (23:20)
[2019-06-13] MEDS: QUETIAPINE FUMARATE 100 MG TABLET PO SCH (23:21)
[2019-06-13] MEDS: ATORVASTATIN CALCIUM 10 MG TABLET PO SCH (23:21)
[2019-06-14] MEDS: LEVOTHYROXINE SODIUM 0.1 MG TABLET PO SCH (05:58)
[2019-06-14] MEDS: INSULIN LISPRO 100 UNIT/ML 3 ML VIAL SUBCUT SCH ×3 (06:26→18:19)
[2019-06-14] MEDS: BUDESONIDE NEB 0.5 MG/2 ML AMPUL NEB SCH ×2 (08:09→20:38)
[2019-06-14] MEDS: LEVALBUTEROL HCL NEB 1.25 MG/3 ML AMPUL NEB SCH ×2 (08:09→16:03)
[2019-06-14] MEDS: IPRATROPIUM BROMIDE 0.02% NEB 0.5 MG/2.5 ML AMPUL NEB SCH ×2 (08:09→16:03)
[2019-06-14] MEDS: METFORMIN HCL 500 MG TABLET PO SCH ×2 (12:29→18:20)
[2019-06-14] MEDS: DOCUSATE SODIUM 100 MG CAPSULE PO SCH ×2 (12:29→18:33)
[2019-06-14] MEDS: LISINOPRIL 10 MG TABLET PO SCH (12:30)
[2019-06-14] MEDS: NYSTATIN 500000 UNIT/5 ML UDCUP PO SCH ×4 (12:30→22:09)
[2019-06-14] MEDS: AMLODIPINE BESYLATE 10 MG TABLET PO SCH (12:30)
[2019-06-14 12:42] LABS: ANION GAP 7 (5-19); BLOOD UREA NITROGEN 10 mg/dL (7-20); CARBON DIOXIDE 30 mmol/L (22-30); CHLORIDE 100 mmol/L (98-107); GLUCOSE 90 mg/dL (75-110); PHOSPHORUS 3.2 mg/dL (2.5-4.5)
[2019-06-14] MEDS: DEXAMETHASONE SOD PHOSPHATE INJ 4 MG/1 ML VIAL IV SCH ×2 (12:47→22:10)
[2019-06-14] MEDS: HYDRALAZINE HCL INJ/PF 20 MG/1 ML SDV IV PRN (15:25)
[2019-06-14] MEDS: POTASSI CL 20 MEQ/D5-1/2NS 1L 1,000 ML IV PRN (15:29)
--- NOTE | 2019-06-14 17:24 | PDOC PROGRESS REPORT ---
Subjective Progress Note for:: 06/14/19 Subjective:: No adverse events overnight. She is ready to start her tube feeds today. No new complaints. Vital signs been stable. Blood pressure has been elevated says she could not get her oral medications yet. Reason For Visit: ACUTE METABOLIC ENCEPHALOPATHY. DKA Physical Exam Vital Signs: Temp Pulse Resp BP Pulse Ox 98.6 F 66 16 206/91 H 99 06/14/19 15:18 06/14/19 16:00 06/14/19 16:00 06/14/19 15:18 06/14/19 16:00 Intake & Output 06/13/19 06/14/19 06/15/19 06:59 06:59 06:59 Intake Total 1500 976 996 Output Total 1250 400 Balance 250 576 996 Weight 58.6 kg 58.2 kg General appearance: PRESENT: no acute distress, cooperative, disheveled Respiratory exam: PRESENT: Coarse breath sounds bilaterally, symmetrical, unlabored. ABSENT: accessory muscle use, crackles, prolonged expiratory phase, rales, rhonchi, tachypnea, wheezes Cardiovascular exam: PRESENT: RRR, +S1, +S2 Pulses: PRESENT: normal carotid pulses Vascular exam: PRESENT: normal capillary refill GI/Abdominal exam: PRESENT: normal bowel sounds, soft, has on abdominal binder. ABSENT: distended, guarding, rebound, tenderness Extremities exam: ABSENT: clubbing, pedal edema Musculoskeletal exam: PRESENT: normal inspection. ABSENT: deformity Neurological exam: PRESENT: alert, awake, oriented to person, oriented to place, oriented to situation Psychiatric exam: PRESENT: appropriate affect, normal mood Skin exam: PRESENT: dry, warm Results Laboratory Results: 06/08/19 05:30 06/14/19 11:20 06/14/19 11:20 Sodium 136.9 L Potassium 4.0 Chloride 100 Carbon Dioxide 30 Anion Gap 7 BUN 10 Creatinine 0.70 Est GFR ( Amer) > 60 Est GFR (Non-Af Amer) > 60 Glucose 90 Calcium 9.0 Phosphorus 3.2 Magnesium 1.6 05/28/19 05/28/19 05/29/19 14:20 14:20 06:55 Creatine Kinase 414 H 1037 H CK-MB (CK-2) 6.78 H Troponin I 0.130 05/29/19 05/31/19 11:15 10:39 Creatine Kinase 1312 H 84 CK-MB (CK-2) Troponin I Impressions: Cervical Spine CT 05/28/19 14:12 IMPRESSION: No fracture or static subluxation of the cervical spine. Multilevel discectomy and fusion from C3 through C7. Head CT 05/28/19 14:12 IMPRESSION: No acute intracranial pathology. EVIDENCE OF ACUTE STROKE: NO. Head CTA 05/29/19 00:00 IMPRESSION: NO CTA EVIDENCE OF STENOSIS OR ANEURYSM OF THE [place]. Interventional Vascular Procedure 05/29/19 00:00 IMPRESSION: Ultrasound guidance for vascular access. Neck CTA 05/29/19 00:00 IMPRESSION: 70- 80% stenosis of the proximal right ICA. Chest/Abdomen CTA 05/31/19 00:00 IMPRESSION: Left lower lobe pneumonia. No PE. Chest X-Ray 06/08/19 06:00 IMPRESSION: Central line remains in place. Lung wing are clear. NG tube and endotracheal tube have been removed. KUB X-Ray 06/08/19 16:39 IMPRESSION: The NG tube is doubled back upon itself in the distal esophagus. Head MRI 06/10/19 00:00 IMPRESSION: No acute intracranial imaging findings. EVIDENCE OF ACUTE STROKE: NO. Modified Barium Swallow 06/10/19 00:00 IMPRESSION: LARYNGEAL PENETRATION AND ASPIRATION ABOVE. PLEASE SEE SPEECH PATHOLOGIST REPORT FOR OTHER FINDINGS AND RECOMMENDATIONS. Assessment and Plan - Diagnosis (1) Acute renal failure Qualifiers: Acute renal failure type: unspecified Qualified Code(s): N17.9 - Acute kidney failure, unspecified Is this a current diagnosis for this admission?: Yes Plan: Resolved (2) Acute respiratory failure with hypoxemia Is this a current diagnosis for this admission?: Yes Plan: Resolved (3) Altered mental status Qualifiers: Altered mental status type: coma Coma depth: [place] coma 3-8 Coma timing: in the field (EMT or ambulance) Qualified Code(s): R40.2431 - [place] coma scale score 3-8, in the field [EMT or ambulance] Is this a current diagnosis for this admission?: Yes Plan: Thought to be secondary to Ambien overdose, now resolved (4) Atherosclerosis of right carotid artery Is this a current diagnosis for this admission?: Yes Plan: Could possibly benefit from vascular surgical consultation as an outpatient, no evidence of acute stroke (5) DKA, type 2 Qualifiers: Diabetes mellitus assisted insulin use: with buttermaker helper use Diabetes mellitus complication detail: with coma Qualified Code(s): E11.11 - Type 2 diabetes mellitus with ketoacidosis with coma; 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
[2019-06-14] MEDS: ENOXAPARIN SODIUM INJ 40 MG/0.4 ML DISP.SYRIN SUBCUT SCH (18:19)
[2019-06-14] MEDS ORDERED: TRAMADOL HCL 50 MG TABLET PEG PRN (21:48)
[2019-06-14] MEDS ORDERED: ATORVASTATIN CALCIUM 10 MG TABLET PEG SCH (22:00)
[2019-06-14] MEDS ORDERED: ASPIRIN 81 MG TABLET, CHEWABLE PEG SCH (22:00)
[2019-06-14] MEDS ORDERED: QUETIAPINE FUMARATE 100 MG TABLET PEG SCH (22:00)
[2019-06-15] MEDS: LEVALBUTEROL HCL NEB 1.25 MG/3 ML AMPUL NEB SCH ×3 (00:44→16:04)
[2019-06-15] MEDS: IPRATROPIUM BROMIDE 0.02% NEB 0.5 MG/2.5 ML AMPUL NEB SCH ×3 (00:44→16:04)
[2019-06-15] MEDS: INSULIN LISPRO 100 UNIT/ML 3 ML VIAL SUBCUT SCH ×3 (02:03→12:25)
[2019-06-15] MEDS ORDERED: LEVOTHYROXINE SODIUM 0.1 MG TABLET PEG SCH (06:00)
[2019-06-15 06:34] LABS: ANION GAP 9 (5-19); BLOOD UREA NITROGEN 13 mg/dL (7-20); CALCIUM 9.4 mg/dL (8.4-10.2); CARBON DIOXIDE 27 mmol/L (22-30); CHLORIDE 99 mmol/L (98-107); GLUCOSE 224 mg/dL (75-110); PHOSPHORUS 3.8 mg/dL (2.5-4.5); POTASSIUM 4.5 mmol/L (3.6-5.0)
[2019-06-15] MEDS: BUDESONIDE NEB 0.5 MG/2 ML AMPUL NEB SCH (07:38)
[2019-06-15] MEDS: POTASSI CL 20 MEQ/D5-1/2NS 1L 1,000 ML IV PRN (09:31)
[2019-06-15] MEDS: NYSTATIN 500000 UNIT/5 ML UDCUP PO SCH ×2 (09:33→13:25)
[2019-06-15] MEDS: DEXAMETHASONE SOD PHOSPHATE INJ 4 MG/1 ML VIAL IV SCH (09:34)
[2019-06-15] MEDS: DOCUSATE SODIUM 100 MG CAPSULE PO SCH (09:34)
[2019-06-15] MEDS ORDERED: AMLODIPINE BESYLATE 10 MG TABLET PEG SCH (10:00)
[2019-06-15] MEDS ORDERED: METFORMIN HCL 500 MG TABLET PEG SCH (10:00)
[2019-06-15] MEDS ORDERED: LISINOPRIL 10 MG TABLET PEG SCH (10:00)
[2019-06-15] MEDS ORDERED: GABAPENTIN 400 MG CAPSULE PO PRN (12:30)
[2019-06-15 16:09] VITALS: BP 134/72
--- NOTE | 2019-06-15 17:31 | PDOC PROGRESS REPORT ---
Subjective Progress Note for:: 06/15/19 Subjective:: No adverse events overnight. Tube feeds have been started and she is been tolerating them well. We are going to discharge her today but apparently there is some sort of an issue with her ability to pay for the various things she is going to need associated with her tube feeds. Reason For Visit: ACUTE METABOLIC ENCEPHALOPATHY. DKA Physical Exam Vital Signs: Temp Pulse Resp BP Pulse Ox 98.1 F 66 16 134/72 H 100 06/15/19 16:08 06/15/19 16:08 06/15/19 16:08 06/15/19 16:08 06/15/19 16:08 Intake & Output 06/14/19 06/15/19 06/16/19 06:59 06:59 06:59 Intake Total 976 1556 902 Output Total 400 2700 400 Balance 576 -1144 502 Weight 58.2 kg 58.9 kg General appearance: PRESENT: no acute distress, cooperative, disheveled Respiratory exam: PRESENT: Coarse breath sounds bilaterally, symmetrical, unlabored. ABSENT: accessory muscle use, crackles, prolonged expiratory phase, rales, rhonchi, tachypnea, wheezes Cardiovascular exam: PRESENT: RRR, +S1, +S2 Pulses: PRESENT: normal carotid pulses Vascular exam: PRESENT: normal capillary refill GI/Abdominal exam: PRESENT: normal bowel sounds, soft, has on abdominal binder. ABSENT: distended, guarding, rebound, tenderness Extremities exam: ABSENT: clubbing, pedal edema Musculoskeletal exam: PRESENT: normal inspection. ABSENT: deformity Neurological exam: PRESENT: alert, awake, oriented to person, oriented to place, oriented to situation Psychiatric exam: PRESENT: appropriate affect, normal mood Skin exam: PRESENT: dry, warm Results Laboratory Results: 06/08/19 05:30 06/15/19 05:55 06/15/19 05:55 Sodium 135.2 L Potassium 4.5 Chloride 99 Carbon Dioxide 27 Anion Gap 9 BUN 13 Creatinine 0.67 Est GFR ( Amer) > 60 Est GFR (Non-Af Amer) > 60 Glucose 224 H Calcium 9.4 Phosphorus 3.8 Magnesium 1.6 05/28/19 05/28/19 05/29/19 14:20 14:20 06:55 Creatine Kinase 414 H 1037 H CK-MB (CK-2) 6.78 H Troponin I 0.130 05/29/19 05/31/19 11:15 10:39 Creatine Kinase 1312 H 84 CK-MB (CK-2) Troponin I Impressions: Cervical Spine CT 05/28/19 14:12 IMPRESSION: No fracture or static subluxation of the cervical spine. Multil evel discectomy and fusion from C3 through C7. Head CT 05/28/19 14:12 IMPRESSION: No acute intracranial pathology. EVIDENCE OF ACUTE STROKE: NO. Head CTA 05/29/19 00:00 IMPRESSION: NO CTA EVIDENCE OF STENOSIS OR ANEURYSM OF [place]. Interventional Vascular Procedure 05/29/19 00:00 IMPRESSION: Ultrasound guidance for vascular access. Neck CTA 05/29/19 00:00 IMPRESSION: 70- 80% stenosis of the proximal right ICA. Chest/Abdomen CTA 05/31/19 00:00 IMPRESSION: Left lower lobe pneumonia. No PE. Chest X-Ray 06/08/19 06:00 IMPRESSION: Central line remains in place. Lung wing are clear. NG tube and endotracheal tube have been removed. KUB X-Ray 06/08/19 16:39 IMPRESSION: The NG tube is doubled back upon itself in the distal esophagus. Head MRI 06/10/19 00:00 IMPRESSION: No acute intracranial imaging findings. EVIDENCE OF ACUTE STROKE: NO. Modified Barium Swallow 06/10/19 00:00 IMPRESSION: LARYNGEAL PENETRATION AND ASPIRATION ABOVE. PLEASE SEE SPEECH PATHOLOGIST REPORT FOR OTHER FINDINGS AND RECOMMENDATIONS. Assessment and Plan - Diagnosis (1) Acute renal failure Qualifiers: Acute renal failure type: unspecified Qualified Code(s): N17.9 - Acute kidney failure, unspecified Is this a current diagnosis for this admission?: Yes Plan: Resolved (2) Acute respiratory failure with hypoxemia Is this a current diagnosis for this admission?: Yes Plan: Resolved (3) Altered mental status Qualifiers: Altered mental status type: coma Coma depth: [place] coma 3-8 Coma timing : in the field (EMT or ambulance) Qualified Code(s): R40.2431 - [place] coma scale score 3-8, in the field [EMT or ambulance] Is this a current diagnosis for this admission?: Yes Plan: Thought to be secondary to Ambien overdose, now resolved (4) Atherosclerosis of right carotid artery Is this a current diagnosis for this admission?: Yes Plan: Could possibly benefit from vascular surgical consultation as an outpatient, no evidence of acute stroke (5) DKA, type 2 Qualifiers: Diabetes mellitus care home insulin use: with extermination inspector use Diabetes mellitus complication detail: with coma Qualified Code(s): E11.11 - Type 2 diabetes mellitus with ketoacidosis with coma; Z79.4 - [facility] (current) use of insulin Is this a current diagnosis for this admission?: No Plan: Resolved (6) Rhabdomyolysis Qualifiers: Encounter type: initial encounter Is this a current diagnosis for this admission?: Yes Plan: Resolved (7) Dysphagia Qualifiers: Dysphagia type: unspecified Qualified Code(s): R13.10 - Dysphagia, unspe cified Is this a current diagnosis for this admission?: Yes Plan: Tube feeds are up to 25 mL's an hour, goal is 45 an hour. She is tolerating well. She got up and ambulated in the hallway independently and so she now does not need to go to a assisted facility from a physical therapy standpoint. She is independent with transfers. Were going to get home health for her, and will discharge her once she is sure that she is going to be able to get her tube feeding supplies. - Time Time Spent with patient: 25-34 minutes
--- NOTE | 2019-06-16 20:08 | PDOC DISCHARGE SUMMARY ---
General - Admit/Disc Date/PCP Admission Date/Primary Care Provider: 05/28/19 17:41 DELFINA NIETO MD Discharge Date: 06/15/19 - Discharge Diagnosis (1) Acute respiratory failure with hypoxemia Is this a current diagnosis for this admission?: Yes Summary: She is been in the hospital for couple of days getting fluids and electrolyte for her DKA and she has decompensation of her respiratory status. In addition to the fluids, is also thought that she may have aspirated. She was intubated on the vent for 8 to 9 days. She was subsequently extubated to nasal cannula and left the hospital on room air. (2) DKA, type 2 Is this a current diagnosis for this admission?: No Summary: She was in DKA when she first came in. It is not known whether her DKA is because her encephalopathy initially, or if she took too much medication because she was not taking her medication she then went into DKA. At any rate, this was resolved and she was back on her home medication. (3) Acute renal failure Is this a current diagnosis for this admission?: Yes Summary: Resolved with IV fluids (4) Altered mental status Is this a current diagnosis for this admission?: Yes Summary: Certainly some of this is from her DKA, but it is also thought that she may have overdosed on Ambien. An empty bottle of it was found next to her. Status was back to baseline and she was cleared by psychiatry. (5) Atherosclerosis of right carotid artery Is this a current diagnosis for this admission?: Yes Summary: She can follow-up as an outpatient with a vascular surgeon for consultation. (6) Rhabdomyolysis Is this a current diagnosis for this admission?: Yes Summary: Resolved with IV fluids (7) Dysphagia Is this a current diagnosis for this admission?: Yes Summary: After she was extubated, she failed multiple swallow evaluations. She was deemed not safe with any consistencies. On her barium swallow, her epiglottis did not even move. She got a PEG tube and was set up on a tube feeding regimen. - Additional Information Resuscitation Status: Full Code Discharge Diet: Tube Feeding (Comments) Discharge Activity: Activity As Tolerated, Balance Activity w/Rest, No Lifting Over 10 Pounds, No Lifting/Push/Pulling, Slowly Increase Activity, Supervised Activity, No tub bath Prescriptions: Amlodipine Besylate [Norvasc 10 mg Tablet] 10 mg PEG DAILY #30 tablet Feeder Cont, Henderson Set,Enfit [Enteral [place] Bag Set-Enfit] 1 each MC CONTINUOUS PRN #30 each PRN Reason: Pump Set [Flexiflo Quantum] 1 each MC CONTINUOUS 90 Days #1 each Syringe, Disposable, 60 ml [Easy [place] Catheter Tip Syring] 1 each MC PRN PRN #50 disp.syrin PRN Reason: Home Medications: Atorvastatin Calcium [Lipitor 10 mg Tablet] 10 mg PO QHS 05/28/19 Gabapentin [Neurontin] 800 mg PO QIDP PRN 05/28/19 Insulin Lispro [Humalog Kwikpen U-100] See Protocol SQ MEALS 05/28/19 Levothyroxine Sodium [Synthroid] 200 mcg PO Q6AM 05/28/19 Lisinopril [Prinivil] 20 mg PO DAILY 05/28/19 Metformin HCl [Glucophage] 1,000 mg PO BID 05/28/19 Quetiapine Fumarate [Seroquel 100 mg Tablet] 100 mg PO QHS 05/28/19 Amlodipine Besylate [Norvasc 10 mg Tablet] 10 mg PEG DAILY #30 tablet 06/15/19 Aspirin [Aspirin 81 mg Chewable Tablet] 81 mg PEG QHS tab.chew 06/15/19 Feeder Cont, Henderson Set,Enfit [Enteral [place] Bag Set-Enfit] 1 each MC CONTINUOUS PRN #30 each 06/15/19 Pump Set [Flexiflo Quantum] 1 each MC CONTINUOUS 90 Days #1 each 06/15/19 Syringe, Disposable, 60 ml [Easy [place] Catheter Tip Syring] 1 each MC PRN PRN #50 disp.syrin 06/15/19 History of Present Illness History of Present Illness: SHELLEY RODRÍGUEZ is a 54 year old female patient brought by EMS for altered mental status. Since patient is mentally altered and sedated she is not source of history. Brief history is obtained orally from the ER attending and review ing available charts. Per ER attending note patient arrives via EMS was found by neighbor under her bed. Patient initially was unresponsive but later patient become agitated and combative. She was given by EMS to milligram of IV Ativan. Upon arrival patient was found to be on 5 L oxygen via nasal cannula and she saturates 97%. Her initial blood work shows mild hyponatremia with sodium of 145.3 market hyperglycemia with blood glucose level of 680, creatinine of 1.26 and mild rhabdomyolysis. Her CT head spine and MRI of the brain are negative for acute process. With unresponsiveness and leukocytosis the possibility of meningitis entertained and LP requested. Further detailed history and review of systems unobtainable. Hospital Course Hospital Course: She was encephalopathic on arrival and was sent for an insulin drip to treat her DKA. She received fluid and electrolyte management as well. After couple of days, her respiratory status declined, possibly from fluids but also possibly from aspiration. She was intubated and was on the ventilator for 8 to 9 days. She was extubated, and after she was extubated she had trouble swallowing. She failed multiple swallow evaluations. She ultimately elected to have a PEG tube placed so that she could get nutrition while she is getting speech therapy. Tube feeding regimen was set up for her at home. Her labs and examination were reassuring and she was discharged in good condition. Physical Exam Vital Signs: Temp Pulse Resp BP Pulse Ox 98.1 F 66 16 134/72 H 100 06/15/19 16:08 06/15/19 16:08 06/15/19 16:08 06/15/19 16:08 06/15/19 16:08 Intake & Output 06/15/19 06/16/19 06/17/19 06:59 06:59 06:59 Intake Total 1556 902 Output Total 2700 400 Balance -1144 502 Weight 58.9 kg General appearance: PRESENT: no acute distress, cooperative, disheveled Respiratory exam: PRESENT: Coarse breath sounds bilaterally, symmetrical, unlabored. ABSENT: accessory muscle use, crackles, prolonged expiratory phase, rales, rhonchi, tachypnea, wheezes Cardiovascular exam: PRESENT: RRR, +S1, +S2 Pulses: PRESENT: normal carotid pulses Vascular exam: PRESENT: normal capillary refill GI/Abdominal exam: PRESENT: normal bowel sounds, soft, has on abdominal binder. ABSENT: distended, guarding, rebound, tenderness Extremities exam: ABSENT: clubbing, pedal edema Musculoskeletal exam: PRESENT: normal inspection. ABSENT: deformity Neurological exam: PRESENT: alert, awake, oriented to person, oriented to place, oriented to situation Psychiatric exam: PRESENT: appropriate affect, normal mood Skin exam: PRESENT: dry, warm Results Laboratory Results: 06/08/19 05:30 06/15/19 05:55 05/28/19 05/28/19 05/29/19 14:20 14:20 06:55 Creatine Kinase 414 H 1037 H CK-MB (CK-2) 6.78 H Troponin I 0.130 05/29/19 05/31/19 11:15 10:39 Creatine Kinase 1312 H 84 CK-MB (CK-2) Troponin I Impressions: Cervical Spine CT 05/28/19 14:12 IMPRESSION: No fracture or static subluxation of the cervical spine. Multilevel discectomy and fusion from C3 through C7. Head CT 05/28/19 14:12 IMPRESSION: No acute intracranial pathology. EVIDENCE OF ACUTE STROKE: NO. Head CTA 05/29/19 00:00 IMPRESSION: NO CTA EVIDENCE OF STENOSIS OR ANEURYSM OF THE [place]. Interventional Vascular Procedure 05/29/19 00:00 IMPRESSION: Ultrasound guidance for vascular access. Neck CTA 05/29/19 00:00 IMPRESSION: 70- 80% stenosis of the proximal right ICA. Chest/Abdomen CTA 05/31/19 00:00 IMPRESSION: Left lower lobe pneumonia. No PE. Chest X-Ray 06/08/19 06:00 IMPRESSION: Central line remains in place. Lung wing are clear. NG tube and endotracheal tube have been removed. KUB X-Ray 06/08/19 16:39 IMPRESSION: The NG tube is doubled back upon itself in the distal esophagus. Head MRI 06/10/19 00:00 IMPRESSION: No acute intracranial imaging findings. EVIDENCE OF ACUTE STROKE: NO. Modified Barium Swallow 06/10/19 00:00 IMPRESSION: LARYNGEAL PENETRATION AND ASPIRATION ABOVE. PLEASE SEE SPEECH PATHOLOGIST REPORT FOR OTHER FINDINGS AND RECOMMENDATIONS. Qualifiers - * PATIENT BEING DISCHARGED WITH ANY OF THE FOLLOWING DIAGNOSIS: No Acute Heart Failure - Is this a Heart Failure Patient?: No Plan Time Spent: Greater than 30 Minutes
--- NOTE | 2019-06-18 19:39 | PSYCHOLOGICAL NOTE ---
Psych Note - Psych Note Date seen by psych provider: 06/09/19 Time seen by psych provider: 16:44 - Evaluation from [id number]. Spoke to Attending Hospitalist at 1705. Psych Note: Presenting Problem: OD, BiPAP unsuccessful so intubated back on 05/31/19. Patient extubated 06/07/19 at 1102. Hospitalist progress Note from 06/07/19 stated patient had a very hoarse voice. At 2120 patient failed the swallow screen so to remain NPO. Midday yesterday (06/08/19) Attending Hospitalist called to inquire if [facility] saw patient, that they were going to try feeding pudding, PT involved, speech getting involved, that patient is able to engage in conversation and if psychiatrically cleared would recommend correction. Today patient stated she did not remember much but had been told in the hospital that she OD on Ambien. She commented "it's weird I really don't take the Ambien, I think I'm just going to get rid of it and stay away from it." She identified she typically takes Seroquel for sleep and has Gabapentin for nerve pain. She reported her outpatient provider is PCM at [facility]. She mentioned "things had actually been going really well, my boyfriend Ta and I have been progressing, I had neurology follow ups and e were finally moving forward with a plan for the cysts found and I am involved with adventist groups that I love." She denied previous hospitalizations. She admitted to previous opiate addiction after being prescribed pills but reported she had been clean. She denied current SI/HI. Patient was alert and oriented x5 with linear and organized thinking, was able to carry on dialogue conversation, talked about the positive things in her life (future/forward thinking) and open about her history. Spoke to attending nurse and hospitalist about talking/discussing with Ta and patient the need to get rid of medications that are old or no longer prescribed. Diagnosis: OD Sleep Issues (on Ambien and Seroquel at night) Impression/Plan: Patient is cleared from acute psychiatric services. She denied current SI/HI, did not recall much of events prior to OD, and talked about the positive things in her life such as relationship with boyfriend progressing/neurolgy appointments going well and having a plan/adventist groups (future/forward thinking). She goes to [facility] for medical and psychiatric medications. She was encouraged to follow up as soon as she was discharged. Spoke to attending nurse and hospitalist about discussing with patient and boyfriend the need to get rid of medications that were old or no longer prescribed. Consulted with Dr. Crawford regarding the management and care of patient. Attending Hospitalist made aware of recommendations.
--- NOTE | 2019-06-22 16:42 | Operative Report ---
Nonrecallable Operative Report DATE OF SURGERY: 07/13/19 PREOPERATIVE DIAGNOSIS: Inanition, dysphagia of unknown origin, history of aspiration POSTOPERATIVE DIAGNOSIS: Same as above OPERATION: Percutaneous endoscopic gastrostomy SURGEON: LUIZA CATALAN ANESTHESIA: LMAC TISSUE REMOVED OR ALTERED: None COMPLICATIONS: None apparent ESTIMATED BLOOD LOSS: Minimal PROCEDURE: Drains/implants: 20 [place] gastrostomy. Procedure in detail: After informed consent was obtained, the patient was brought into the operating room and laid in the supine position. The flexible gastroscope was passed down the oropharynx, down the esophagus, and into the stomach. The stomach was then insufflated with air. An appropriate place for gastrostomy insertion was chosen using one-to-one ballottement and transillumination. After an appropriate place had been identified, and needle was inserted through the skin, percutaneously into the stomach. A wire was placed through the insertion needle. It was grasped with a snare and pulled out the oropharynx. The PEG tube was then attached to the wire and pulled down the esophagus, through the anterior abdominal wall. This left the internal bumper against the mucosa of the stomach. This was confirmed via endoscopic means. There was no active bleeding. The external bumper was placed at 3 cm at the skin. The PEG tube was assembled, and the procedure was concluded. All sponge, instrument, and needle counts were correct. Condition: Stable.
== END 2019-06-15 17:40 | disposition home health service (06) | DRG 637 ==
LOC: ER 13:58 → EH 17:41 → ICU 05-29 04:41 → 5 06-07 20:50
PROVIDERS: ADMIT Internal Medicine; ATTEND Internal Medicine
PROC: 009U3ZX Drainage of Spinal Canal, Percutaneous Approach, Diagnostic (ICD-10-PCS; principal; 2019-05-28)
PROC: 02H633Z Insertion of Infusion Device into Right Atrium, Percutaneous Approach (ICD-10-PCS; 2019-05-29)
PROC: B244ZZZ Ultrasonography of Right Heart (ICD-10-PCS; 2019-05-29)
PROC: 0BH17EZ Insertion of Endotracheal Airway into Trachea, Via Natural or Artificial Opening (ICD-10-PCS; 2019-05-31)
PROC: 5A1955Z Respiratory Ventilation, Greater than 96 Consecutive Hours (ICD-10-PCS; 2019-05-31)
PROC: 0DH63UZ Insertion of Feeding Device into Stomach, Percutaneous Approach (ICD-10-PCS; 2019-06-12)
DX: E11.11 Type 2 diabetes mellitus with ketoacidosis with coma (principal); G93.41 Metabolic encephalopathy; J96.01 Acute respiratory failure with hypoxia; N17.9 Acute kidney failure, unspecified; M62.82 Rhabdomyolysis; E87.1 Hypo-osmolality and hyponatremia; T42.6X1A Poisoning by other antiepileptic and sedative-hypnotic drugs, accidental (unintentional), initial encounter; R41.82 Altered mental status, unspecified; R13.10 Dysphagia, unspecified; I65.21 Occlusion and stenosis of right carotid artery; E03.9 Hypothyroidism, unspecified; I10 Essential (primary) hypertension; T21.23XA Burn of second degree of upper back, initial encounter; F17.210 Nicotine dependence, cigarettes, uncomplicated; T31.0 Burns involving less than 10% of body surface; X08.8XXA Exposure to other specified smoke, fire and flames, initial encounter; Y93.9 Activity, unspecified; Y92.9 Unspecified place or not applicable; Y92.003 Bedroom of unspecified non-institutional (private) residence as the place of occurrence of the external cause; Z79.84 Long term (current) use of oral hypoglycemic drugs; Z79.4 Long term (current) use of insulin; Z79.899 Other long term (current) drug therapy
CPT/HCPCS: 00731; 31500; 36415; 36556; 43246; 70450; 70496; 70498; 70551; 71045; 71275; 72125; 74018; 74230; 76937; 80048; 80053; 80061; 80202; 80307; 81001; 82040; 82140; 82550; 82553; 82803; 82945; 82962; 83036; 83605; 83735; 84100; 84132; 84157; 84439; 84443; 84481; 84484; 85025; 85610; 87040; 87070; 87077; 87086; 87186; 87205; 89050; 93005; 93010; 94002; 94003; 94660; 94799; 95819; 96360; 99291; J0131; J0133; J0330; J0360; J0696; J1100; J1170; J1630; J1642; J1650; J1815; J1885; J2060; J2270; J2405; J2704; J3010; J3230; J3360; J3370; J3475; J3480; J3490; J7030; J7050; J7060; J7614; L0172; S0164

== ENCOUNTER → 2019-07-10 | Outpatient (CLI) | payer MEDICARE ==
--- NOTE | 2019-07-10 08:55 | RADIOLOGY REPORT (SQ) ---
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 TECHNIQUE: Sagittal and Axial imaging includes T1, T2, STIR and gradient echo sequences. LIMITATIONS: None. FINDINGS: LOCALIZER: No worrisome findings. ALIGNMENT: Normal. VERTEBRAE: Intact. BONE MARROW: Normal. No marrow replacement or reactive changes. HARDWARE: None in the spine. CORD: Normal in size and signal intensity. SOFT TISSUES: No soft tissue masses. THORACIC DISCS T1-T12: No significant spinal stenosis or exit foraminal stenosis. LOWER CERVICAL: Incompletely imaged. No significant spinal stenosis or exit foraminal stenosis. UPPER LUMBAR: Incompletely imaged. No significant spinal stenosis or exit foraminal stenosis. OTHER: No other significant finding. IMPRESSION: NORMAL MRI THORACIC SPINE. TECHNICAL DOCUMENTATION: JOB ID: [id number] [employer]- All Rights Reserved Reading location - IP/workstation name: [email or web address]
--- NOTE | 2019-07-10 09:01 | RADIOLOGY REPORT (SQ) ---
EXAM DESCRIPTION: MRI CERVICAL SPINE WITHOUT COMPLETED DATE/TIME: 07/10/2019 8:43 am REASON FOR STUDY: CERVICAL MYELOPATHY (M47.12) M47.12 OTHER SPONDYLOSIS WITH MYELOPATHY, CERVICAL R EGION M54.14 RADICULOPATHY, THORACIC REGION COMPARISON: 02/27/2019 TECHNIQUE: Sagittal and Axial imaging includes T1, T2, STIR and gradient echo sequences. LIMITATIONS: None. FINDINGS: ALIGNMENT: Normal. VERTEBRAE: Intact. BONE MARROW: Normal. No marrow replacement or reactive changes. DISCS: Loss of normal height and signal from C3-4 through C6. HARDWARE: Postsurgical changes anteriorly from C3 through C6. CORD AND BASE OF BRAIN: Normal in size and signal intensity. SOFT TISSUES: No soft tissue masses. C1-C2: No significant spinal stenosis. C2-C3: No significant spinal stenosis or exit foraminal stenosis. C3-C4: No significant spinal stenosis or exit foraminal stenosis. C4-C5: No significant spinal stenosis or exit foraminal stenosis. C5-C6: Mild central stenosis and mild bilateral foraminal narrowing. C6-C7: No significant spinal stenosis or exit foraminal stenosis. C7-T1: No significant spinal stenosis or exit foraminal stenosis. UPPER THORACIC: Incompletely imaged. No significant spinal stenosis or exit foraminal stenosis. OTHER: No other significant finding. IMPRESSION: Postsurgical changes as described. Persistent mild central canal stenosis at C5-C6 not significantly changed from prior study. TECHNICAL DOCUMENTATION: JOB ID: [id number] [employer] All Rights Reserved Reading location - IP/workstation name: [email or web address]
== END ==
LOC: RAD 06:51
PROVIDERS: ATTEND Neurological Surgery
DX: M47.12 Other spondylosis with myelopathy, cervical region (principal); M54.14 Radiculopathy, thoracic region
CPT/HCPCS: 72141; 72146

== ENCOUNTER 2019-07-27 12:01 | Inpatient (IN) | payer MEDICARE ==
[2019-07-27] MEDS ORDERED: NORMAL SALINE 500 ML with NALOXONE HCL 2 MG IV PRN ×2 (12:19)
[2019-07-27] MEDS ORDERED: DEXTROSE 5%-NORMAL SALINE 1,000 ML IV ONE (12:26)
[2019-07-27] MEDS ORDERED: NORMAL SALINE 1000 ML 1,000 ML IV ONE (12:26)
[2019-07-27] MEDS ORDERED: VANCOMYCIN HCL INJ 1000 MG VIAL IV ONE (12:37)
--- NOTE | 2019-07-27 12:52 | RADIOLOGY REPORT (SQ) ---
EXAM DESCRIPTION: CHEST SINGLE VIEW COMPLETED DATE/TIME: 07/27/2019 12:39 pm REASON FOR STUDY: Postintubation COMPARISON: CT chest 05/31/2019 AP chest 06/07/2019, 06/08/2019 EXAM PARAMETERS: NUMBER OF VIEWS: One view. TECHNIQUE: Single frontal radiographic view of the chest acquired. RADIATION DOSE: NA LIMITATIONS: None. FINDINGS: LUNGS AND PLEURA: No opacities, masses or pneumothorax. No pleural effusion. MEDIASTINUM AND HILAR STRUCTURES: No masses. Contour normal. HEART AND VASCULAR STRUCTURES: Heart normal in size. Normal vasculature. BONES: No acute findings. HARDWARE: Endotracheal tube tip 2.5 cm above the larisa. Gastrostomy tube tip left upper quadrant pr ojected over the stomach. Stomach is decompressed. OTHER: No other significant finding. IMPRESSION: Endotracheal tube tip in good positioning. No focal infiltrates TECHNICAL DOCUMENTATION: JOB ID: [id number] [employer]- All Rights Reserved Reading location - IP/workstation name: [email or web address]
[2019-07-27 12:57] LABS: APPEARANCE,URINE CLEAR; BILIRUBIN,URINE NEGATIVE (NEGATIVE); COLOR,URINE YELLOW; GLUCOSE, URINE NEGATIVE (NEGATIVE); KETONES,URINE NEGATIVE (NEGATIVE); LEUKOCYTE ESTERASE,URINE NEGATIVE (NEGATIVE); NITRITE,URINE NEGATIVE (NEGATIVE); PROTEIN,URINE NEGATIVE (NEGATIVE); URINE SPECIFIC GRAVITY 1.013; UROBILINOGEN,URINE NEGATIVE mg/dL (<2.0)
[2019-07-27 12:59] LABS: ARTERIAL BLOOD BASE EXCESS -2.3 mmol/L; ARTERIAL BLOOD FIO2 35%; ARTERIAL BLOOD H2CO3 1.52 mmol/L (1.05-1.35); ARTERIAL BLOOD HCO3 24.5 mmol/L (20-24); ARTERIAL BLOOD PCO2 50.4 mmHg (35-45); ARTERIAL BLOOD PO2 120.1 mmHg (80-100)
[2019-07-27 13:04] LABS: ABSOLUTE BASOPHILS # (AUTO) 0.1 10^3/uL (0.0-0.2); ABSOLUTE LYMPHOCYTES (AUTO) 1.3 10^3/uL (0.5-4.7); ABSOLUTE MONOCYTES (AUTO) 0.5 10^3/uL (0.1-1.4); ABSOLUTE NEUT (AUTO) 10.6 10^3/uL (1.7-8.2); BASOPHILS % (AUTO) 0.7 % (0-2); EOSINOPHILS % (AUTO) 0.4 % (0-6); HEMATOCRIT 34.2 % (36.0-47.0); HEMOGLOBIN 11.2 g/dL (12.0-15.5); LYMPHOCYTES % (AUTO) 10.1 % (13-45); MEAN CORPUSCULAR HEMOGLOBIN 28.1 pg (27.0-33.4); MEAN CORPUSCULAR HGB CONC 32.7 g/dL (32.0-36.0); MEAN CORPUSCULAR VOLUME 86 fl (80-97); MONOCYTES % (AUTO) 3.9 % (3-13); PLATELET COUNT 329 10^3/uL (150-450); RED BLOOD COUNT 3.97 10^6/uL (3.72-5.28); RED CELL DISTRIBUTION WIDTH 15.5 % (11.5-14.0); SEGMENTED NEUTROPHILS % (AUTO) 84.9 % (42-78); TOTAL CELLS COUNTED % (AUTO) 100 %; WHITE BLOOD COUNT 12.5 10^3/uL (4.0-10.5)
--- NOTE | 2019-07-27 13:08 | RADIOLOGY REPORT (SQ) ---
EXAM DESCRIPTION: CT HEAD WITHOUT COMPLETED DATE/TIME: 07/27/2019 12:57 pm REASON FOR STUDY: Unconscious, trauma COMPARISON: 05/29/2019 TECHNIQUE: Axial images acquired through the brain without intravenous contrast. Images reviewed wi th bone, brain and subdural windows. Additional sagittal and coronal reconstructions were generated. Images stored on PACS. All CT scanners at this facility use dose modulation, iterative reconstruction, and/or weight based d osing when appropriate to reduce radiation dose to as low as reasonably achievable (ALARA). [facility]: Dose Right [facility]: CareDose [facility]: Dose Right [facility]: Teradose 4D [facility]: [employer] RADIATION DOSE: CT Rad equipment meets quality standard of care and radiation dose reduction techniq ues were employed. CTDIvol: 53.2 mGy. DLP: 1044 mGy-cm. mGy. LIMITATIONS: None. FINDINGS: VENTRICLES: Normal size and contour. CEREBRUM: No masses. No hemorrhage. No midline shift. No evidence for acute infarction. Normal gra y/white matter differentiation. No areas of low density in the white matter. CEREBELLUM: No masses. No hemorrhage. No alteration of density. No evidence for acute infarction. EXTRAAXIAL SPACES: No fluid collections. No masses. ORBITS AND GLOBE: No intra- or extraconal masses. Normal contour of globe without masses. CALVARIUM: No fracture. PARANASAL SINUSES: No fluid or mucosal thickening. Frothy fluid within the nasal cavity and orophary nx. SOFT TISSUES: No mass or hematoma. OTHER: No other significant finding. IMPRESSION: 1. No acute intracranial pathology. 2. Frothy fluid within the nasal cavity and oropharynx. Correlate with evidence of epistaxis. EVIDENCE OF ACUTE STROKE: NO. COMMENT: Quality ID # [id number]: Final reports with documentation of one or more dose reduction techniques (e.g., Automated exposure control, adjustment of the mA and/or kV according to patient size, use of iterative reconstruction technique) TECHNICAL DOCUMENTATION: JOB ID: [id number] [employer]- All Rights Reserved Reading location - IP/workstation name: [email or web address]
[2019-07-27 13:14] LABS: URINE AMPHETAMINES SCREEN NEGATIVE; URINE BARBITURATES SCREEN NEGATIVE; URINE BENZODIAZEPINES SCREEN NEGATIVE; URINE COCAINE SCREEN NEGATIVE; URINE MARIJUANA (THC) SCREEN NEGATIVE; URINE METHADONE SCREEN NEGATIVE; URINE PHENCYCLIDINE SCREEN NEGATIVE
--- NOTE | 2019-07-27 13:14 | RADIOLOGY REPORT (SQ) ---
EXAM DESCRIPTION: CT CERVICAL SPINE WITHOUT COMPLETED DATE/TIME: 07/27/2019 12:57 pm REASON FOR STUDY: Unconscious, trauma COMPARISON: 05/28/2019 TECHNIQUE: Axial images acquired through the cervical spine without intravenous contrast. Images re viewed with lung, soft tissue and bone windows. Reconstructed coronal and sagittal MPR images review ed. Images stored on PACS. All CT scanners at this facility use dose modulation, iterative reconstruction, and/or weight based d osing when appropriate to reduce radiation dose to as low as reasonably achievable (ALARA). [facility]: Dose Right [facility]: CareDose [facility]: Dose Right [facility]: Teradose 4D [facility]: [employer] RADIATION DOSE: CT Rad equipment meets quality standard of care and radiation dose reduction techniq ues were employed. CTDIvol: 17.4 mGy. DLP: 362 mGy-cm. mGy. LIMITATIONS: None. FINDINGS: ALIGNMENT: Anatomic. MINERALIZATION: Normal. VERTEBRAL BODIES: No fractures or dislocation. DISCS: Multilevel disc space narrowing with osteophytes. FACETS, LATERAL MASSES, POSTERIOR ELEMENTS: Facet arthropathy. No fractures. No dislocation. No ac [place] findings. HARDWARE: Anterior fusion hardware at the C3-4 level. Inter-disc spacers at C4-5 and C5-6. VISUALIZED RIBS: No fractures. LUNG APICES AND SOFT TISSUES: No significant or acute findings. OTHER: Endotracheal tube. IMPRESSION: CHRONIC DEGENERATIVE CHANGES. NO ACUTE FINDINGS. TECHNICAL DOCUMENTATION: JOB ID: [id number] Quality ID # [id number]: Final reports with documentation of one or more dose reduction techniques (e.g., Au tomated exposure control, adjustment of the mA and/or kV according to patient size, use of iterative reconstruction technique) 2010 [employer]- All Rights Reserved Reading location - IP/workstation name: [email or web address]
[2019-07-27 13:16] LABS: ALBUMIN 3.8 g/dL (3.5-5.0); ALKALINE PHOSPHATASE 95 U/L (38-126); ANION GAP 11 (5-19); ASPARTATE AMINO TRANSFERASE 18 U/L (14-36); BILIRUBIN,DIRECT 0.1 mg/dL (0.0-0.4); BILIRUBIN,TOTAL 0.2 mg/dL (0.2-1.3); BLOOD UREA NITROGEN 22 mg/dL (7-20); CARBON DIOXIDE 25 mmol/L (22-30); CHLORIDE 102 mmol/L (98-107); CREATINE KINASE 32 U/L (30-135); GLUCOSE 172 mg/dL (75-110); POTASSIUM 5.1 mmol/L (3.6-5.0); TOTAL PROTEIN 6.5 g/dL (6.3-8.2)
[2019-07-27 13:17] LABS: ALCOHOL < 10 mg/dL (NONE DETECTED)
[2019-07-27] MEDS: LEVOFLOXACIN 500 MG/D5W RTU 500 MG/100 ML RTUPB IV SCH (13:20)
[2019-07-27 13:28] LABS: CREATINE KINASE MB 0.64 ng/mL (<4.55); NT PRO BNP 256 pg/mL (5-900)
[2019-07-27 13:29] LABS: TROPONIN I < 0.012 ng/mL
[2019-07-27] MEDS ORDERED: SUCCINYLCHOLINE CHLORIDE INJ 200 MG/10 ML VIAL IV ONE (13:47)
[2019-07-27] MEDS ORDERED: ETOMIDATE INJ/PF 20 MG/10 ML SDV IV ONE (13:47)
[2019-07-27] MEDS ORDERED: NALOXONE HCL INJ 2 MG/2 ML DISP.SYRIN IV ONE (13:49)
--- NOTE | 2019-07-27 14:16 | ER Document Report ---
ED Neuro Symptoms/Deficit - General Chief Complaint: Unresponsive Stated Complaint: UNRESPONSIVE Time Seen by Provider: 07/27/19 12:16 Primary Care Provider: CLINTON TIDWELL MD [Primary Care Provider] - Follow up as needed Notes: Chief complaint: Unconscious History of complain:( obtained from----patient) 54 years old female was found in the yard close to her friends unconscious just prior to arrival. Her condition was reported to the EMS by the neighbors. EMS found slammed against the friends. Pupils were pinpoint nonreactive, not responding to tactile stimuli. She was oxygenating, to put on nasal cannula and brought to the ED. In the ED her coma scale was 8, Narcan was given with no response. Subsequently she was intubated endotracheally. No further history is available Onset: Sudden Duration: Unknown Severity: Severe Quality: Unknown Context: Unknown Exacerbating factor and relieving factors: Not applicable REVIEW OF SYSTEMS: Unable to obtain due to coma scale of 8. PHYSICAL EXAMINATION: GENERAL: Well-appearing, well-nourished and in no acute distress. HEAD: Atraumatic, normocephalic. EYES: Bilateral pinpoint pupil nonreactive ENT: Nares patent, oropharynx clear without exudates. Moist mucous membranes. NECK: On c-collar LUNGS: Diffuse bilateral crackles were heard HEART: Regular rate and rhythm without murmurs ABDOMEN: Not distended, positive bowel sounds Examination of genitals-deferred Musculoskeletal: No trauma or injury noted both in upper limbs and lower limb NEUROLOGICAL: Coma scale of 8, unresponsive to verbal and and stimuli PSYCH: Not applicable SKIN: Warm, Dry, normal turgor, no rashes or lesions noted. Dictation was performed using [employer] voice recognition software TRAVEL OUTSIDE OF THE [place] IN LAST 30 DAYS: No - HPI Notes: Dictated - Related Data Allergies/Adverse Reactions: Penicillins Allergy (Verified 05/28/19 18:43) Past Medical History - Social History Smoking Status: Current Every Day Smoker Family History: None - Unable to be obtained due to altered mental status. Patient has suicidal ideation: No - unknown Patient has homicidal ideation: No - unknown Pulmonary Medical History: Reports: Hx COPD Endocrine Medical History: Reports: Hx Diabetes Mellitus Type 2, Hx Hypothyroidism Renal/ Medical History: Denies: Hx Peritoneal Dialysis Psychiatric Medical History: Reports: Hx Depression Traumatic Medical History: Denies: Hx Gunshot Wound, Hx Pneumothorax Infectious Medical History: Denies: Hx HIV Review of Systems - Review of Systems Notes: Dictated Physical Exam - Vital signs Vitals: Pulse Ox 98 07/27/19 12:16 - Notes Notes: Dictated Course - Vital Signs Vital signs: Temp Pulse Resp BP Pulse Ox 14 150/96 H 99 07/27/19 14:01 07/27/19 14:01 07/27/19 14:01 - Laboratory Result Diagrams: 07/27/19 12:10 07/27/19 12:10 Laboratory results interpreted by me: 07/27/19 07/27/19 07/27/19 12:04 12:10 12:10 WBC 12.5 H Hgb 11.2 L Hct 34.2 L RDW 15.5 H Lymph % (Auto) 10.1 L Absolute Neuts (auto) 10.6 H Seg Neutrophils % 84.9 H Carbonic Acid ABG pH ABG pCO2 ABG pO2 ABG HCO3 ABG Total CO2 Potassium 5.1 H BUN 22 H Glucose 172 H POC Glucose 177 H Lactic Acid 07/27/19 07/27/19 12:10 12:10 WBC Hgb Hct RDW Lymph % (Auto) Absolute Neuts (auto) Seg Neutrophils % Carbonic Acid 1.52 H ABG pH 7.30 L ABG pCO2 50.4 H ABG pO2 120.1 H ABG HCO3 24.5 H ABG Total CO2 26.0 H Potassium BUN Glucose POC Glucose Lactic Acid 3.1 H - Diagnostic Test Radiology reviewed: Reports reviewed - CT of the head reported by radiologist no bleed- CT of the neck reported by radiologist as no injuries Chest x-ray reported by radiologist as ET tube in position, no obvious infiltrate or effusion. - EKG Interpretation by Me EKG shows normal: Sinus rhythm - Sinus rhythm at a rate of 80 bpm normal axis no acute ST-T wave changes. Procedures - Intubation Orotracheal Airway evaluation: Normal anatomy Mallampati Classification: Class 1 Intubation method: Orotracheal Blade type: Alfie Blade size: 3 ETT size: 8.0 ETT secured at: Teeth ETT secured at (cm): 23 Breath Sounds after Intubation: Equal Tidal volume: 450 FiO2: 35 Respirations: 12 Pressure support: 10 PEEP: 5 Post Intubation Xray: Yes - ET tube in place Critical Care Note - Critical Care Note Total time excluding time spent on procedures (mins): 40 Comments: Evaluation, treatment, intubation, post intubation care Discharge - Discharge Clinical Impression: Acute metabolic encephalopathy, Unconscious Condition: Critical Disposition: ADMITTED INPATIENT Admitting Provider: Jane fenton Dr. Unit Admitted: ICU Referrals: TIDWELL,MD CLINTON [Primary Care Provider] - Follow up as needed
[2019-07-27] MEDS ORDERED: IPRATROPIUM/ALBUTEROL 0.5-2.5 MG/3 ML AMPUL NEB PRN (14:37)
--- NOTE | 2019-07-27 14:44 | EKG REPORT ---
SEVERITY:- ABNORMAL ECG - SINUS RHYTHM FIRST DEGREE AV BLOCK PROBABLE LEFT ATRIAL ABNORMALITY PROBABLE LEFT VENTRICULAR HYPERTROPHY ANTERIOR ST ELEVATION, PROBABLY DUE TO LVH BORDERLINE PROLONGED QT INTERVAL : Confirmed by: Catie Childers MD 27-Jul-2019 14:44:04
[2019-07-27] MEDS ORDERED: GLUCAGON,HUMAN RECOMB 1 MG INJ IM PRN (14:48)
[2019-07-27] MEDS ORDERED: DEXTROSE 50%-WATER 25 GM/50 ML DISP.SYRIN IV PRN ×2 (14:48)
[2019-07-27] MEDS ORDERED: DEXTROSE 40% GEL 15 GM TUBE PO PRN ×2 (14:48)
[2019-07-27] MEDS: LORAZEPAM INJ 2 MG/1 ML VIAL IV PRN (15:22)
[2019-07-27] MEDS ORDERED: PROPOFOL 1,000 MG/100 ML INFUS..BTL IV PRN ×2 (15:38→15:52)
[2019-07-27] MEDS ORDERED: PROPOFOL 1,000 MG/100 ML INFUS..BTL IV ONE (15:43)
[2019-07-27] MEDS: PROPOFOL 1,000 MG/100 ML INFUS..BTL IV PRN (16:03)
[2019-07-27] MEDS: INSULIN REG, HUMAN 100 UNIT/ML 3 ML VIAL (PYX) SUBCUT SCH ×2 (18:08→23:04)
[2019-07-27] MEDS: ENOXAPARIN SODIUM INJ 30 MG/0.3 ML DISP.SYRIN SUBCUT SCH (18:17)
[2019-07-27] MEDS: RINGERS SOLUTION,LACTATED 1,000 ML IV PRN (18:17)
[2019-07-27] MEDS: NICARDIPINE HCL RTU, ISO-OS 20 MG/200 ML RTUINJ IV PRN ×2 (18:41→22:35)
[2019-07-28] MEDS: PROPOFOL 1,000 MG/100 ML INFUS..BTL IV PRN ×2 (00:37→08:15)
[2019-07-28] MEDS: NICARDIPINE HCL RTU, ISO-OS 20 MG/200 ML RTUINJ IV PRN ×3 (02:30→13:06)
[2019-07-28 03:29] LABS: ARTERIAL BLOOD BASE EXCESS -0.1 mmol/L; ARTERIAL BLOOD FIO2 25%; ARTERIAL BLOOD H2CO3 1.12 mmol/L (1.05-1.35); ARTERIAL BLOOD O2 SATURATION 96.5 % (94-98); ARTERIAL BLOOD PCO2 37.2 mmHg (35-45); ARTERIAL BLOOD PH 7.43 (7.35-7.45); ARTERIAL BLOOD PO2 83.7 mmHg (80-100); ARTERIAL BLOOD TOTAL CO2 25.1 mmol/L (21-25)
[2019-07-28 04:06] LABS: ABSOLUTE BASOPHILS # (AUTO) 0.1 10^3/uL (0.0-0.2); ABSOLUTE EOSINOPHILS # (AUTO) 0.2 10^3/uL (0.0-0.6); ABSOLUTE LYMPHOCYTES (AUTO) 1.8 10^3/uL (0.5-4.7); ABSOLUTE MONOCYTES (AUTO) 0.6 10^3/uL (0.1-1.4); ABSOLUTE NEUT (AUTO) 7.1 10^3/uL (1.7-8.2); BASOPHILS % (AUTO) 0.7 % (0-2); EOSINOPHILS % (AUTO) 2.4 % (0-6); HEMATOCRIT 33.6 % (36.0-47.0); HEMOGLOBIN 11.2 g/dL (12.0-15.5); LYMPHOCYTES % (AUTO) 18.6 % (13-45); MEAN CORPUSCULAR HEMOGLOBIN 28.3 pg (27.0-33.4); MEAN CORPUSCULAR HGB CONC 33.4 g/dL (32.0-36.0); MEAN CORPUSCULAR VOLUME 85 fl (80-97); MONOCYTES % (AUTO) 5.8 % (3-13); PLATELET COUNT 347 10^3/uL (150-450); RED BLOOD COUNT 3.97 10^6/uL (3.72-5.28); RED CELL DISTRIBUTION WIDTH 15.6 % (11.5-14.0); SEGMENTED NEUTROPHILS % (AUTO) 72.5 % (42-78); TOTAL CELLS COUNTED % (AUTO) 100 %; WHITE BLOOD COUNT 9.8 10^3/uL (4.0-10.5)
[2019-07-28 04:20] LABS: ANION GAP 8 (5-19); BLOOD UREA NITROGEN 11 mg/dL (7-20); CALCIUM 9.3 mg/dL (8.4-10.2); CARBON DIOXIDE 27 mmol/L (22-30); CHLORIDE 103 mmol/L (98-107); GLUCOSE 138 mg/dL (75-110)
[2019-07-28 04:36] LABS: FREE T4 (FREE THYROXINE) 2.28 ng/dL (0.78-2.19)
[2019-07-28 04:50] LABS: THYROID STIMULATING HORMONE 0.06 uIU/mL (0.47-4.68)
[2019-07-28] MEDS: RINGERS SOLUTION,LACTATED 1,000 ML IV PRN ×2 (05:34→21:15)
[2019-07-28] MEDS: INSULIN REG, HUMAN 100 UNIT/ML 3 ML VIAL (PYX) SUBCUT SCH ×4 (05:34→23:49)
[2019-07-28] MEDS: LORAZEPAM INJ 2 MG/1 ML VIAL IV PRN (06:28)
--- NOTE | 2019-07-28 08:14 | EKG REPORT ---
SEVERITY:- ABNORMAL ECG - SINUS RHYTHM RIGHT ATRIAL ABNORMALITY CONSIDER ANTEROSEPTAL INFARCT BORDERLINE PROLONGED QT INTERVAL : Confirmed by: Catie Childers MD 28-Jul-2019 08:13:56
[2019-07-28] MEDS: ENOXAPARIN SODIUM INJ 30 MG/0.3 ML DISP.SYRIN SUBCUT SCH (10:28)
[2019-07-28] MEDS: LEVOFLOXACIN 500 MG/D5W RTU 500 MG/100 ML RTUPB IV SCH (10:28)
[2019-07-28] MEDS: FAMOTIDINE INJ/PF 20 MG/2 ML SDV IV SCH ×2 (10:28→21:16)
--- NOTE | 2019-07-28 13:34 | PDOC PROGRESS REPORT ---
Subjective Progress Note for:: 07/28/19 Subjective:: The patient was just extubated. She was found very obtunded naear her house and brought to the ED yesterdaY. oN LIGHTENING HER SEDATION today the patient became more responsive and was following commands appropriatelty. Her speech is quite harse presently post-extubation. Reason For Visit: DRUG OVERDOSE Physical Exam Vital Signs: Temp Pulse Resp BP Pulse Ox 99.5 F 114 H 16 149/92 H 99 07/28/19 12:00 07/28/19 13:00 07/28/19 13:00 07/28/19 13:00 07/28/19 13:00 Intake & Output 07/27/19 07/28/19 07/29/19 06:59 06:59 06:59 Intake Total 3632 295 Output Total 3800 790 Balance -168 -495 Weight 60.1 kg General appearance: PRESENT: no acute distress, well-developed, well-nourished Head exam: PRESENT: atraumatic, normocephalic Eye exam: PRESENT: conjunctiva pink, EOMI, PERRLA. ABSENT: scleral icterus Ear exam: PRESENT: normal external ear exam Mouth exam: PRESENT: moist, tongue midline Neck exam: PRESENT: full ROM. ABSENT: carotid bruit, JVD, lymphadenopathy, thyromegaly Respiratory exam: PRESENT: clear to auscultation jaqueline. ABSENT: accessory muscle use Cardiovascular exam: PRESENT: RRR. ABSENT: diastolic murmur, rubs, systolic murmur Pulses: PRESENT: normal dorsalis pedis pul, +2 pedal pulses bilateral Vascular exam: PRESENT: normal capillary refill GI/Abdominal exam: PRESENT: normal bowel sounds, soft. ABSENT: distended, guarding, mass, organolmegaly, rebound, tenderness Rectal exam: PRESENT: deferred Extremities exam: PRESENT: full ROM. ABSENT: pedal edema Neurological exam: PRESENT: alert, awake, oriented to person, oriented to place, oriented to time, oriented to situation, CN II-XII grossly intact. ABSENT: motor sensory deficit Psychiatric exam: PRESENT: appropriate affect, normal mood. ABSENT: homicidal ideation, suicidal ideation Skin exam: PRESENT: dry, intact, warm. ABSENT: cyanosis, rash Results Laboratory Results: 07/28/19 03:46 07/28/19 03:46 07/27/19 07/27/1919 12:10 16:20 17:01 WBC RBC Hgb Hct MCV MCH MCHC RDW Plt Count Seg Neutrophils % Carbonic Acid HCO3/H2CO3 Ratio ABG pH ABG pCO2 ABG pO2 ABG HCO3 ABG O2 Saturation ABG Base Excess FiO2 Sodium Potassium Chloride Carbon Dioxide Anion Gap BUN Creatinine Est GFR ( Amer) Glucose Lactic Acid 3.1 H 2.8 H Calcium Ammonia < 8.7 L TSH Free T4 07/28/19 07/28/19 07/28/19 03:23 03:46 03:46 WBC 9.8 RBC 3.97 Hgb 11.2 L Hct 33.6 L MCV 85 MCH 28.3 MCHC 33.4 RDW 15.6 H Plt Count 347 Seg Neutrophils % 72.5 Carbonic Acid 1.12 HCO3/H2CO3 Ratio 21:1 ABG pH 7.43 ABG pCO2 37.2 ABG pO2 83.7 ABG HCO3 24.0 ABG O2 Saturation 96.5 ABG Base Excess -0.1 FiO2 25% Sodium 138.0 Potassium 4.0 D Chloride 103 Carbon Dioxide 27 Anion Gap 8 BUN 11 Creatinine 0.65 Est GFR ( Amer) > 60 Glucose 138 H Lactic Acid Calcium 9.3 Ammonia TSH Free T4 07/28/19 03:46 WBC RBC Hgb Hct MCV MCH MCHC RDW Plt Count Seg Neutrophils % Carbonic Acid HCO3/H2CO3 Ratio ABG pH ABG pCO2 ABG pO2 ABG HCO3 ABG O2 Saturation ABG Base Excess FiO2 Sodium Potassium Chloride Carbon Dioxide Anion Gap BUN Creatinine Est GFR ( Amer) Glucose Lactic Acid Calcium Ammonia TSH 0.06 L Free T4 2.28 H 07/27/19 07/27/19 12:10 12:10 Creatine Kinase 32 CK-MB (CK-2) 0.64 Troponin I < 0.012 NT-Pro-B Natriuret Pep 256 Impressions: Chest X-Ray 07/27/19 12:17 IMPRESSION: Endotracheal tube tip in good positioning. No focal infiltrates Cervical Spine CT 07/27/19 12:18 IMPRESSION: CHRONIC DEGENERATIVE CHANGES. NO ACUTE FINDINGS. Head CT 07/27/19 12:18 IMPRESSION: 1. No acute intracranial pathology. 2. Frothy fluid within the nasal cavity and oropharynx. Correlate with evidence of epistaxis. EVIDENCE OF ACUTE STROKE: NO. Assessment & Plan - Diagnosis (1) Acute kidney injury Is this a current diagnosis for this admission?: Yes Plan: Urine output and kidney function are normal at this time (2) Acute metabolic encephalopathy Is this a current diagnosis for this admission?: Yes Plan: The patient is fully alert and apears oriented. We suspect she may have taken excessive amounts of prescribed medciations leading to this situation. It appears that a very similar occurrence led top admission 2 months ago although it kyle have been complicated by DKA at thyat time. We suspected she may have taken extra Seroquel and amitryptyline over the past several days to weeks. Her drug screen was negative. in addtion, thepatient si not repsond to Narcan administered in the ED. CT of the head was unremarkable. (3) Acute respiratory failure with hypoxemia Is this a current diagnosis for this admission?: Yes Plan: The patient as noted required intuabation for hypopnea and airway protection. She is fully awke now and her respiratory effort appeasrs normal and she is amintainiongnher 02 sat. (4) Drug overdose, multiple drugs Is this a current diagnosis for this admission?: Yes Plan: To reitertrate we beleieve th epatient kyle have taken too much of certain prescribed emds. as her prescritions forn Seroquela and amitrypline showed lesser quatities than they should have when thebottle were examined - Time Medications reviewed and adjusted accordingly: Yes Anticipated discharge: Home
[2019-07-28] MEDS ORDERED: (PENDING PHARMACY ID) (Lisinopril [Lisinopril] 20 MG) PO SCH (13:45)
[2019-07-28] MEDS ORDERED: AMLODIPINE BESYLATE 10 MG TABLET PO SCH (14:00)
[2019-07-28] MEDS: LISINOPRIL 10 MG TABLET PEG SCH (14:54)
[2019-07-28] MEDS: AMLODIPINE BESYLATE 10 MG TABLET PEG SCH (14:54)
[2019-07-28] MEDS: LEVOTHYROXINE SODIUM 0.1 MG TABLET PO SCH (17:53)
[2019-07-28] MEDS: METFORMIN HCL 500 MG TABLET PO SCH (17:53)
[2019-07-28] MEDS: ATORVASTATIN CALCIUM 10 MG TABLET PO SCH (17:54)
[2019-07-28] MEDS ORDERED: (PENDING PHARMACY ID) (Levothyroxine Sodium [Levothyroxine Sodium] 200 MCG) PO SCH (18:00)
[2019-07-28] MEDS: QUETIAPINE FUMARATE 100 MG TABLET PO SCH (21:16)
[2019-07-28] MEDS ORDERED: AMITRIPTYLINE HCL 25 MG TABLET PO SCH (22:00)
[2019-07-29] MEDS: LORAZEPAM INJ 2 MG/1 ML VIAL IV PRN (00:24)
[2019-07-29] MEDS: INSULIN REG, HUMAN 100 UNIT/ML 3 ML VIAL (PYX) SUBCUT SCH ×3 (06:55→18:48)
[2019-07-29 07:28] LABS: ARTERIAL BLOOD BASE EXCESS 0.1 mmol/L; ARTERIAL BLOOD H2CO3 1.21 mmol/L (1.05-1.35); ARTERIAL BLOOD HCO3 24.7 mmol/L (20-24); ARTERIAL BLOOD O2 SATURATION 98.3 % (94-98); ARTERIAL BLOOD PCO2 40.3 mmHg (35-45); ARTERIAL BLOOD PH 7.41 (7.35-7.45); ARTERIAL BLOOD PO2 117.3 mmHg (80-100)
[2019-07-29 07:29] LABS: ARTERIAL BLOOD FIO2 3L
[2019-07-29] MEDS: RINGERS SOLUTION,LACTATED 1,000 ML IV PRN ×2 (11:03→23:04)
[2019-07-29] MEDS: AMLODIPINE BESYLATE 10 MG TABLET PEG SCH (11:05)
[2019-07-29] MEDS: METFORMIN HCL 500 MG TABLET PO SCH ×2 (11:05→17:46)
[2019-07-29] MEDS: ENOXAPARIN SODIUM INJ 30 MG/0.3 ML DISP.SYRIN SUBCUT SCH (11:05)
[2019-07-29] MEDS: FAMOTIDINE INJ/PF 20 MG/2 ML SDV IV SCH (11:05)
[2019-07-29] MEDS: LISINOPRIL 10 MG TABLET PEG SCH (11:06)
--- NOTE | 2019-07-29 14:14 | PSYCHOLOGICAL NOTE ---
Psych Note - Psych Note Date seen by psych provider: 07/29/19 Time seen by psych provider: 12:50 Psych Note: Reason For Consult: intentional overdose Consent Permissions:none provided Patient reports that she was found unresponsive and that it "just happened a week ago." She reports that she needs to contact her outpatient provider to see what is going on. Patient denies suicidal ideation, history of mental health and history of accidental or intentional overdose. 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 She denies any new stressors and states "my life is as easy as it gets." Clinician notes patient then states that she is wheelchair-bound for the last 3 to 4 months that "one day my legs just stopped working." She continued to state that at this point it seems like is not reversible. Clinician notes attending nurse states patient just engaged in PT and was walking with no difficulties. Patient is not wheelchair-bound. Patient is alert and orientated to person, place, time and circumstance. Mood is euthymic with congruent affect. Patient denies suicidal and homicidal ideation; however, this is the second overdose in less than 2 months both of which required intubation. Delusions are absent and behaviors congruent with an intact reality based presentation ie organized and linear thought process. Eye contact is poor. Conversational speech is within normal rate, tone and prosody. Intellectual abilities appear to be within the average range. Attention and concentration are fair. Insight, judgment, impulse control are poor. Diagnosis: Overdose Medication recommendations per [facility]'s contracted psychiatrist Dr. Lang GREGG are as follows No medication recommendations at this time Impression\\plan: Patient is recommended for IVC. While patient denies intentional overdose currently, she did disclose intentional overdose to an attending nurse. This is the second overdose the patient has experienced in less than 2 months where she needed to be intubated. Patient overdosed on Seroquel and amitriptyline. There is significant concern the patient has been intentionally overdosing. Patient will be reevaluated. Dr. Crawford was consulted to care management of this patient; attending physicians in agreement with recommendations and disposition.
--- NOTE | 2019-07-29 15:12 | RADIOLOGY REPORT (SQ) ---
EXAM DESCRIPTION: SHOULDER RIGHT 2 OR MORE VIEWS COMPLETED DATE/TIME: 07/29/2019 2:56 pm REASON FOR STUDY: Pain, limited mobility in the shoulder after a fall COMPARISON: None. NUMBER OF VIEWS: Three views. TECHNIQUE: Internal rotation, external rotation, and Y view images acquired of the right shoulder. LIMITATIONS: None. FINDINGS: MINERALIZATION: Normal. BONES: No acute fracture. JOINTS: No dislocation. Degeneration of the AC joint. VISUALIZED LUNGS AND RIBS: No pneumothorax. No rib fracture. SOFT TISSUES: No radiopaque foreign body. OTHER: No other finding. IMPRESSION: 1. No fracture or dislocation of the right shoulder. 2. AC joint osteoarthrosis. TECHNICAL DOCUMENTATION: JOB ID: [id number] [email or web address]- All Rights Reserved Reading location - IP/workstation name: [email or web address]
[2019-07-29] MEDS: GABAPENTIN 400 MG CAPSULE PO PRN (16:24)
[2019-07-29] MEDS: LEVOTHYROXINE SODIUM 0.1 MG TABLET PO SCH (17:46)
[2019-07-29] MEDS: ATORVASTATIN CALCIUM 10 MG TABLET PO SCH (17:46)
[2019-07-29] MEDS: QUETIAPINE FUMARATE 100 MG TABLET PO SCH (22:43)
[2019-07-29] MEDS: AMITRIPTYLINE HCL 25 MG TABLET PO SCH (22:43)
[2019-07-30] MEDS: INSULIN REG, HUMAN 100 UNIT/ML 3 ML VIAL (PYX) SUBCUT SCH ×4 (00:34→17:29)
[2019-07-30] MEDS: LORAZEPAM INJ 2 MG/1 ML VIAL IV PRN (01:04)
[2019-07-30] MEDS ORDERED: HALOPERIDOL LACTATE INJ 5 MG/1 ML VIAL IV ONE (03:00)
[2019-07-30] MEDS: METFORMIN HCL 500 MG TABLET PO SCH ×2 (08:08→16:28)
[2019-07-30] MEDS: ENOXAPARIN SODIUM INJ 30 MG/0.3 ML DISP.SYRIN SUBCUT SCH (10:32)
[2019-07-30] MEDS: LISINOPRIL 10 MG TABLET PEG SCH (10:33)
[2019-07-30] MEDS: AMLODIPINE BESYLATE 10 MG TABLET PEG SCH (10:35)
--- NOTE | 2019-07-30 16:49 | PSYCHOLOGICAL NOTE ---
Psych Note - Psych Note Date seen by psych provider: 07/30/19 Time seen by psych provider: 13:28 - Chart review at 1328. Psych Note: Presenting Problem: IVC, OD of Seroquel and Amitriptyline, second one in a 2 month period both required intubation. She was extubated on 07/29/19. Medical documentation noted she was initially oriented, denied SI, when medications were administered confusion and restlessness increased, staff tried to reorient without success and Haldol was utilized. Today at 0800 documentation noted patient was oriented to time and place, said she was at [facility], had periods of incoherent speech. Consult was placed for swallow eval uation. At 0933 restraints removed. Diagnosis: OD Impression/Plan: Recommendation to maintain IVC. She is not medically cleared yet. Will see patient face to face when more alert and oriented. At this time consideration for inpatient hospitalization once medically cleared since this is second OD in two month period that required intubation. Consulted with Dr. Crawford regarding the management and care of patient. Attending Hospitalist aware of recommendations.
[2019-07-30] MEDS: LEVOTHYROXINE SODIUM 0.1 MG TABLET PO SCH (17:21)
[2019-07-30] MEDS: ATORVASTATIN CALCIUM 10 MG TABLET PO SCH (17:21)
[2019-07-30] MEDS: QUETIAPINE FUMARATE 100 MG TABLET PO SCH (22:43)
[2019-07-30] MEDS: AMITRIPTYLINE HCL 25 MG TABLET PO SCH (22:43)
[2019-07-31] MEDS: INSULIN REG, HUMAN 100 UNIT/ML 3 ML VIAL (PYX) SUBCUT SCH ×5 (00:32→23:02)
[2019-07-31] MEDS: METFORMIN HCL 500 MG TABLET PO SCH ×2 (08:54→16:17)
[2019-07-31] MEDS: ENOXAPARIN SODIUM INJ 30 MG/0.3 ML DISP.SYRIN SUBCUT SCH (09:00)
[2019-07-31] MEDS: LISINOPRIL 10 MG TABLET PEG SCH (09:00)
[2019-07-31] MEDS: AMLODIPINE BESYLATE 10 MG TABLET PEG SCH (09:01)
--- NOTE | 2019-07-31 10:15 | ST Inp Modified Barium Swallow ---
Medical Diagnosis - Medical Diagnoses Medical Diagnosis Description & ICD-10 Code(s): acute metabolic encephalopathy, dysphagia R13.10 ST Inpatient MBS - General Date: 07/31/19 Date of Onset: 07/28/19 - admit date - History -: Medical - per EMR: patient admitted 07/27, unresponsive, and subsequently intubated. Was extubated on 07/28. Prior medical history includes COPD and PEG placement at prior admission. Previously admitted in May and had MBSS completed, which showed silent aspiration of puree textures due to poor closure of laryngeal vestibule and reduced epiglottic inversion. Patient reports that she has been eating and drinking regular textures at home prior to this hospitalization. Medications: Medications Reviewed Allergies: Refer to medical record - Subjective Current Nutritional Means: NPO, PEG Current PO Diet: N/A (NPO) Current Symptoms: other - history of silent aspiration - Objective Assessment: Upright, Left Lateral - Food Trials Food Trials Used: Thin liquids, Pureed, Regular The Patient: Was Able to Self Feed - Assessment Labial Function: Within Normal Limits Lingual Function: Within Normal Limits Mandibular Function: Within Normal Limits Dentition: Partial Velo-Pharyngeal Function: Unremarkable Laryngeal Function: weak voicing, breathy voice - Pharyngeal Stage Initiation of Pharyngeal Stage: Normal Decreased Laryngeal Elevation: Yes - mild Reduced Velo-Pharyngeal Closure: no Reduced Pressure Generation: Yes - mild Reduced Tongue Base Retraction: No Pre-Swallowing Pooling in Valleculae: Mild Pre-Swallowing Pooling in Pyriforms: None Reduced Thyro-Hyiod Approximation: Yes - mild Reduced Epiglottic Excursion: No Reduced Pharyngeal Peristalsis: No Multiple Swallows With: Cleared w/ Liquid Assist Post Swallow Residuals in Valleculae: Moderate Post Swallow Residuals in Pyriforms: Mild Post Swallow Residuals: throughout pharynx Pahryngeal Stage Comments: No active aspiration seen. Patient is still at risk of aspiration due to deep penetration of thin liquids (silent) and residue of solids thorughout pharynx. Laryngeal vestibule closes late on the swallow, allowing liquid in for penetration. Possible signs of reduced UES opening, this may also be due to overall weakness of pharyngeal constrictors. Piecemeal degluttition of regular solids seen. - Impression/Summary Laryngeal Penetration: Deep, Silent, during swallow - with thin liquids Tracheal Aspiration: no Productive Cough: Yes Effective Clearing: yes Patient Presents With: Pharyngeal stage dysph., Mild-Moderate Risk of Aspiration: Mild Risk of Nutritional Compromise: WNL - Recommendations Solid Diet Recommendations: Mechanical Soft, Chopped Meat Liquid Diet Recommendations: Thin Strict Aspitarion Precautions: Yes Dysphagia Therapy with EMULSION OPERATOR: No Recommended Techniques: Fully Upright During Meal, Small Bites and Sips, Alternate Bites/Sips Supervision: Distant - Time Total Time: 30 Total Timed Minutes: 30
--- NOTE | 2019-07-31 12:52 | RADIOLOGY REPORT (SQ) ---
EXAM DESCRIPTION: COOKIE SWALLOW COMPLETED DATE/TIME: 07/31/2019 12:39 pm REASON FOR STUDY: assess for aspirationAspiration following long-term intubation, follow-up, CVA, di abetic coma COMPARISON: 06/10/2019 TECHNIQUE: Videofluoroscopic swallowing examination was performed in conjunction with speech patholo gy. Videofluoroscopic imaging was obtained and reviewed and these are the findings: RADIATION DOSE: 2 minutes 39 seconds of fluoroscopy was used. 1 images saved to PACS. LIMITATIONS: None FINDINGS: The patient was brought into the fluoro room and placed upright on a modified barium swall ow chair. The patient was then given multiple consistencies mixed with barium to swallow under live fluoroscopic video guidance. According to the Speech Pathologist there was deep laryngeal penetratio n with thin liquids. No aspiration seen. IMPRESSION: DEEP LARYNGEAL PENETRATION WITH THIN LIQUIDS. NO ASPIRATION. PLEASE SEE SPEECH PATHOLOG IST REPORT FOR OTHER FINDINGS AND RECOMMENDATIONS. COMMENT: Quality ID [id number]: Final reports for procedures using fluoroscopy that document radiation exp osure indices, or exposure time and number of fluorographic images (if radiation exposure indices are not available) TECHNICAL DOCUMENTATION: JOB ID: [id number] [employer]- All Rights Reserved Reading location - IP/workstation name: [email or web address] [id number]
[2019-07-31] MEDS: ATORVASTATIN CALCIUM 10 MG TABLET PO SCH (18:26)
[2019-07-31] MEDS: LEVOTHYROXINE SODIUM 0.1 MG TABLET PO SCH (18:26)
[2019-07-31] MEDS: GABAPENTIN 400 MG CAPSULE PO PRN (18:28)
[2019-07-31] MEDS: QUETIAPINE FUMARATE 100 MG TABLET PO SCH (21:50)
[2019-07-31] MEDS: AMITRIPTYLINE HCL 25 MG TABLET PO SCH (21:50)
[2019-08-01] MEDS: GABAPENTIN 400 MG CAPSULE PO PRN ×4 (00:08→17:48)
[2019-08-01] MEDS: INSULIN REG, HUMAN 100 UNIT/ML 3 ML VIAL (PYX) SUBCUT SCH ×3 (06:32→17:29)
[2019-08-01 09:00] LABS: ABSOLUTE BASOPHILS # (AUTO) 0.1 10^3/uL (0.0-0.2); ABSOLUTE EOSINOPHILS # (AUTO) 0.5 10^3/uL (0.0-0.6); ABSOLUTE MONOCYTES (AUTO) 0.6 10^3/uL (0.1-1.4); ABSOLUTE NEUT (AUTO) 4.5 10^3/uL (1.7-8.2); BASOPHILS % (AUTO) 1.1 % (0-2); EOSINOPHILS % (AUTO) 6.9 % (0-6); HEMATOCRIT 34.1 % (36.0-47.0); HEMOGLOBIN 11.3 g/dL (12.0-15.5); LYMPHOCYTES % (AUTO) 25.8 % (13-45); MEAN CORPUSCULAR HEMOGLOBIN 28.2 pg (27.0-33.4); MEAN CORPUSCULAR HGB CONC 33.3 g/dL (32.0-36.0); MEAN CORPUSCULAR VOLUME 85 fl (80-97); MONOCYTES % (AUTO) 8.2 % (3-13); PLATELET COUNT 400 10^3/uL (150-450); RED BLOOD COUNT 4.02 10^6/uL (3.72-5.28); TOTAL CELLS COUNTED % (AUTO) 100 %; WHITE BLOOD COUNT 7.7 10^3/uL (4.0-10.5)
[2019-08-01 09:13] LABS: ANION GAP 8 (5-19); BLOOD UREA NITROGEN 17 mg/dL (7-20); CALCIUM 9.8 mg/dL (8.4-10.2); CARBON DIOXIDE 30 mmol/L (22-30); CHLORIDE 99 mmol/L (98-107); GLUCOSE 115 mg/dL (75-110); POTASSIUM 4.2 mmol/L (3.6-5.0)
[2019-08-01 09:36] LABS: FREE T3 3.18 pg/mL (2.77-5.27); FREE T4 (FREE THYROXINE) 2.53 ng/dL (0.78-2.19)
[2019-08-01] MEDS: AMLODIPINE BESYLATE 10 MG TABLET PEG SCH (09:40)
[2019-08-01] MEDS: METFORMIN HCL 500 MG TABLET PO SCH ×2 (09:40→17:45)
[2019-08-01] MEDS: LISINOPRIL 10 MG TABLET PEG SCH (09:40)
[2019-08-01] MEDS: ENOXAPARIN SODIUM INJ 30 MG/0.3 ML DISP.SYRIN SUBCUT SCH (09:41)
[2019-08-01 09:50] LABS: THYROID STIMULATING HORMONE 0.11 uIU/mL (0.47-4.68)
--- NOTE | 2019-08-01 11:23 | Progress Note ---
Provider Note Provider Note: Patient has been downgraded from the ICU and per dietary tech sign out, she has been doing and been stable for the past 48 hrs and is just awaiting psych placement She is medically cleared for discharge for final disposition to inpatient psych facility as psych has recommended.
--- NOTE | 2019-08-01 15:19 | PDOC PROGRESS REPORT ---
Subjective Progress Note for:: 08/01/19 Subjective:: This is a 4-year-old female who was found unconscious at home. Patient was found obtunded and was subsequently intubated. She was admitted to the ICU and was treated for an overdose likely from intentional ingestion of Seroquel and Elavil. Patient was subsequently extubated on 07/28/2019. She was IVCed and psych placing her for inpatient psych treatment. Assumed care today. Verbal sign out received from the harbor tug captain. Patient denies acute complaints. She denies chest pain or shortness of breath. Discussed with psych team as well who will initiate placement process. Reason For Visit: DRUG OVERDOSE Physical Exam Vital Signs: Temp Pulse Resp BP Pulse Ox 98.2 F 96 17 107/68 100 08/01/19 00:06 08/01/19 00:06 08/01/19 00:06 08/01/19 01:04 08/01/19 00:06 Intake & Output 07/31/19 08/01/19 08/02/19 06:59 06:59 06:59 Intake Total 720 1660 Output Total 1610 1020 Balance -890 640 Weight 122 lb 12.76 oz 122 lb 9.232 oz General appearance: PRESENT: no acute distress, well-developed, well-nourished Head exam: PRESENT: atraumatic, normocephalic Eye exam: PRESENT: conjunctiva pink, EOMI, PERRLA. ABSENT: scleral icterus Ear exam: PRESENT: normal external ear exam Mouth exam: PRESENT: moist, tongue midline Neck exam: ABSENT: carotid bruit, JVD, lymphadenopathy, thyromegaly Respiratory exam: PRESENT: clear to auscultation jaqueline. ABSENT: rales, rhonchi, wheezes Cardiovascular exam: PRESENT: RRR. ABSENT: diastolic murmur, rubs, systolic murmur Pulses: PRESENT: normal dorsalis pedis pul GI/Abdominal exam: PRESENT: normal bowel sounds, soft. ABSENT: distended, guarding, mass, organolmegaly, rebound, tenderness Rectal exam: PRESENT: deferred Extremities exam: PRESENT: full ROM. ABSENT: calf tenderness, clubbing, pedal edema Neurological exam: PRESENT: alert, awake, oriented to person, oriented to place, oriented to time, oriented to situation, CN II-XII grossly intact. ABSENT: motor sensory deficit Results Laboratory Results: 08/01/19 08:11 08/01/19 08:11 08/01/19 08/01/19 08/01/19 08:11 08:11 08:11 WBC 7.7 RBC 4.02 Hgb 11.3 L Hct 34.1 L MCV 85 MCH 28.2 MCHC 33.3 RDW 15.0 H Plt Count 400 Seg Neutrophils % 58.0 Sodium 137.2 Potassium 4.2 Chloride 99 Carbon Dioxide 30 Anion Gap 8 BUN 17 Creatinine 0.77 Est GFR ( Amer) > 60 Glucose 115 H Lactic Acid 0.7 Calcium 9.8 TSH Free T4 Free T3 pg/mL 08/01/19 08:11 WBC RBC Hgb Hct MCV MCH MCHC RDW Plt Count Seg Neutrophils % Sodium Potassium Chloride Carbon Dioxide Anion Gap BUN Creatinine Est GFR ( Amer) Glucose Lactic Acid Calcium TSH 0.11 L Free T4 2.53 H Free T3 pg/mL 3.18 07/27/19 07/27/19 12:10 12:10 Creatine Kinase 32 CK-MB (CK-2) 0.64 Troponin I < 0.012 NT-Pro-B Natriuret Pep 256 Impressions: Chest X-Ray 07/27/19 12:17 IMPRESSION: Endotracheal tube tip in good positioning. No focal infiltrates Cervical Spine CT 07/27/19 12:18 IMPRESSION: CHRONIC DEGENERATIVE CHANGES. NO ACUTE FINDINGS. Head CT 07/27/19 12:18 IMPRESSION: 1. No acute intracranial pathology. 2. Frothy fluid within the nasal cavity and oropharynx. Correlate with evidence of epistaxis. EVIDENCE OF ACUTE STROKE: NO. Shoulder X-Ray 07/29/19 00:00 IMPRESSION: 1. No fracture or dislocation of the right shoulder. 2. AC joint osteoarthrosis. Modified Barium Swallow 07/31/19 00:00 IMPRESSION: DEEP LARYNGEAL PENETRATION WITH THIN LIQUIDS. NO ASPIRATION. PLEASE SEE SPEECH PATHOLOGIST REPORT FOR OTHER FINDINGS AND RECOMMENDATIONS. Assessment and Plan - Diagnosis (1) Acute respiratory failure with hypoxemia Is this a current diagnosis for this admission?: Yes Plan: Secondary to acute toxic encephalopathy from drug overdose. Resolved. Extubated on 07/28/2019. Saturating well on room air at the moment. (2) Acute encephalopathy Is this a current diagnosis for this admission?: Yes Plan: Secondary to drug overdose (Elavil and Seroquel. (3) Drug overdose, multiple drugs Is this a current diagnosis for this admission?: Yes Plan: Psych currently working on placement. (4) Lactic acidosis Is this a current diagnosis for this admission?: Yes Plan: Resolved.
[2019-08-01] MEDS: LEVOTHYROXINE SODIUM 0.1 MG TABLET PO SCH (17:44)
[2019-08-01] MEDS: ATORVASTATIN CALCIUM 10 MG TABLET PO SCH (17:45)
[2019-08-01] MEDS: AMITRIPTYLINE HCL 25 MG TABLET PO SCH (20:59)
[2019-08-01] MEDS: QUETIAPINE FUMARATE 100 MG TABLET PO SCH (20:59)
[2019-08-02] MEDS: INSULIN REG, HUMAN 100 UNIT/ML 3 ML VIAL (PYX) SUBCUT SCH ×3 (00:27→12:02)
[2019-08-02] MEDS: GABAPENTIN 400 MG CAPSULE PO PRN ×2 (07:19→13:17)
[2019-08-02] MEDS: METFORMIN HCL 500 MG TABLET PO SCH ×2 (07:23→16:15)
[2019-08-02] MEDS: LISINOPRIL 10 MG TABLET PEG SCH (10:04)
[2019-08-02] MEDS: AMLODIPINE BESYLATE 10 MG TABLET PEG SCH (10:05)
[2019-08-02] MEDS: ENOXAPARIN SODIUM INJ 30 MG/0.3 ML DISP.SYRIN SUBCUT SCH (10:05)
--- NOTE | 2019-08-02 10:53 | PSYCHOLOGICAL NOTE ---
Psych Note - Psych Note Date seen by psych provider: 08/02/19 Time seen by psych provider: 08:02 - Chart review at 0802. Discussion with nurse and hopsitalist at 1008. Evaluation from [id number]. Psych Note: Presenting Problem: IVC, OD of Seroquel and Amitriptyline, second one in a 2 month period both required intubation. She was extubated on 07/29/19. Medical documentation noted she was initially oriented, denied SI, when medications were administered confusion and restlessness increased, staff tried to reorient without success and Haldol was utilized. Her orientation has continued to improve. She was medically cleared 08/01/19 so inpatient psychiatric hospitalization placement efforts began. Home psychiatric related medications were listed as: Elavil 50 or 75MG QHS, Seroquel 100MG QHS, Neurontin 800MG QID PRN pain. Psychiatric medication being administered while in the hospital include: Elavil 50MG QHS, Seroquel 100MG QHS, Neurontin 800MG QID PRN pain (last given 08/02/19 at 0719), and Ativan 1MG Q6H PRN IV (last given 07/30/19 at 0104). Continue admit criteria as of 08/01/19 were: ARF with hypoxemia, acute encephalopathy, drug overdose multiple drugs and lactic acidosis. Today patient had her PEG tube removed without complication. She adamantly d enied this and her other visit about 6 weeks ago being intentional overdoses and commented "there was no malice or intentional nature." She mentioned her neurosurgeon (Dr. Jewell) prescribed Elavil (she just increased from 25 to 50MG QHS) since her last visit and maybe she took a double dose of her BP medication forgetting she took the first one. She commented she does not have a pill binder and just takes medications from the bottles. She also stated she has 2 nurses that come to the house early who tell her when to take her BP medication based on what her BP was. She stated otherwise she does not know "why this has happened." She mentioned she has appointments on Saturday that she cannot miss: nerve conduction test at her neurosurgeon's office and the doctor who does it only comes once a month, she need the nerve conduction test in order to bee seen at [facility], and she has a dental appointment with the [facility][1]. She stated she had a man staying with her and has concerns since some of her medications were missing pills. She stated "I take responsibility, they are my medications and I allowed him there." She noted he no longer resides with her so she lives alone. She stated she has difficulty walking due to nerve pain in her legs which is what the neurosurgeon and nerve conduction test are about. She stated she has disability but is unable to get Medicaid due to felony drug charge from the past. She stated in [place] she saw a therapist and wants to be linked here. She noted she has been in ID for about 1.5 years. Diagnosis: OD Medication recommendations made by the psychiatric medication provider, Dr. Lang MD., includes: Discontinue Ativan 1MG IV every 6 hours as needed Discontinue Elavil 50MG at night Discontinue Seroquel 100MG at night Decrease Neurontin to 800MG twice a day as needed for pain (also has mood stabilization component) No Ambien (was a previous home medication, last visit was for Ambien OD) IF NO HX BIPOLAR Add Effexor 37.5MG twice a day for depression/energy/focus I Add Buspar 5MG in the morning for anxiety/calming effect/depression 10MG at night for anxiety/calming effect/depression/sleep Impression/Plan: Recommendation to maintain IVC. There is concern given she had 2 overdoses in a 6 week period that required intubation. Medication recommendations are just being provided today. Consulted with Dr. Crawford regarding the management and care of patient. Attending Hospitalist aware of recommendations.
--- NOTE | 2019-08-02 15:16 | Operative Report ---
Operative Report DATE OF SURGERY: 08/02/19 PREOPERATIVE DIAGNOSIS: Exhausted feeding tube POSTOPERATIVE DIAGNOSIS: Same OPERATION: Removal of percutaneous endoscopic gastrostomy tube at bedside SURGEON: VANE FIGUEROA ANESTHESIA: Other - None TISSUE REMOVED OR ALTERED: Tube removal COMPLICATIONS: None ESTIMATED BLOOD LOSS: Scant INTRAOPERATIVE FINDINGS: See below PROCEDURE: The feeding tube was placed approximately 7 weeks ago. Patient is now taking p.o. and no longer needs a feeding tube The patient was examined in room 424. She was placed supine position. The feeding tube exit site was unremarkable. Using gentle traction, the feeding tube with bolster were removed uneventfully. 4 x 4's and tape applied. Discharge instructions provided to patient. She can follow-up with general surgeon on a as needed basis.
[2019-08-02] MEDS: ACETAMINOPHEN 325 MG TABLET PO PRN (16:05)
[2019-08-02] MEDS ORDERED: DEXTROSE 40% GEL 15 GM TUBE PO PRN (16:30)
[2019-08-02] MEDS ORDERED: DEXTROSE 50%-WATER SYRINGE 12.5 GM/25 ML DOSE IV PRN (16:30)
[2019-08-02] MEDS ORDERED: DEXTROSE 40% GEL 15 GM TUBE X 2 PO PRN (16:30)
[2019-08-02] MEDS ORDERED: GLUCAGON,HUMAN RECOMB 1 MG INJ IM PRN (16:30)
[2019-08-02] MEDS ORDERED: DEXTROSE 50%-WATER SYRINGE 25 GM/50 ML DOSE IV PRN (16:30)
--- NOTE | 2019-08-02 16:33 | PDOC PROGRESS REPORT ---
Subjective Progress Note for:: 08/02/19 Subjective:: This is a 4-year-old female who was found unconscious at home. Patient was found obtunded and was subsequently intubated. She was admitted to the ICU and was treated for an overdose likely from intentional ingestion of Seroquel and Elavil. Patient was subsequently extubated on 07/28/2019. She was IVCed and psych placing her for inpatient psych treatment. 08/01: Assumed care today. Verbal sign out received from the hydrogenation still operator. Patient denies acute complaints. She denies chest pain or shortness of breath. Discussed with psych team as well who will initiate placement process. 08/02: No acute event overnight. Patient request her PEG to be taken out as she has been tolerating regular diet well without any issues. Discussed with surgery who has agreed to remove PEG tube today. Discussed with psychiatry team who is currently working on inpatient psych placement. Reason For Visit: DRUG OVERDOSE Physical Exam Vital Signs: Temp Pulse Resp BP Pulse Ox 98.0 F 88 16 133/85 H 100 08/02/19 10:37 08/02/19 10:37 08/02/19 10:37 08/02/19 10:37 08/02/19 10:37 Intake & Output 08/01/19 08/02/19 08/03/19 06:59 06:59 06:59 Intake Total 1660 1410 720 Output Total 1020 Balance 640 1410 720 Weight 122 lb 9.232 oz 123 lb 3.814 oz General appearance: PRESENT: no acute distress, well-developed, well-nourished Head exam: PRESENT: atraumatic, normocephalic Eye exam: PRESENT: conjunctiva pink, EOMI, PERRLA. ABSENT: scleral icterus Ear exam: PRESENT: normal external ear exam Mouth exam: PRESENT: moist, tongue midline Neck exam: ABSENT: carotid bruit, JVD, lymphadenopathy, thyromegaly Respiratory exam: PRESENT: clear to auscultation jaqueline. ABSENT: rales, rhonchi, wheezes Cardiovascular exam: PRESENT: RRR. ABSENT: diastolic murmur, rubs, systolic murmur Pulses: PRESENT: normal dorsalis pedis pul GI/Abdominal exam: PRESENT: normal bowel sounds, soft. ABSENT: distended, guarding, mass, organolmegaly, rebound, tenderness Rectal exam: PRESENT: deferred Extremities exam: PRESENT: full ROM. ABSENT: calf tenderness, clubbing, pedal edema Neurological exam: PRESENT: alert, awake, oriented to person, oriented to place, oriented to time, oriented to situation, CN II-XII grossly intact. ABSENT: motor sensory deficit Psychiatric exam: ABSENT: homicidal ideation, suicidal ideation Results Laboratory Results: 08/01/19 08:11 08/01/19 08:11 07/27/19 12:34 Blood Blood Culture - Final NO GROWTH IN 5 DAYS 07/27/19 07/27/19 12:10 12:10 Creatine Kinase 32 CK-MB (CK-2) 0.64 Troponin I < 0.012 NT-Pro-B Natriuret Pep 256 Impressions: Chest X-Ray 07/27/19 12:17 IMPRESSION: Endotracheal tube tip in good positioning. No focal infiltrates Cervical Spine CT 07/27/19 12:18 IMPRESSION: CHRONIC DEGENERATIVE CHANGES. NO ACUTE FINDINGS. Head CT 07/27/19 12:18 IMPRESSION: 1. No acute intracranial pathology. 2. Frothy fluid within the nasal cavity and oropharynx. Correlate with evidence of epistaxis. EVIDENCE OF ACUTE STROKE: NO. Shoulder X-Ray 07/29/19 00:00 IMPRESSION: 1. No fracture or dislocation of the right shoulder. 2. AC joint osteoarthrosis. Modified Barium Swallow 07/31/19 00:00 IMPRESSION: DEEP LARYNGEAL PENETRATION WITH THIN LIQUIDS. NO ASPIRATION. PLEASE SEE SPEECH PATHOLOGIST REPORT FOR OTHER FINDINGS AND RECOMMENDATIONS. Assessment and Plan - Diagnosis (1) Acute respiratory failure with hypoxemia Is this a current diagnosis for this admission?: Yes Plan: Secondary to acute toxic encephalopathy from drug overdose. Resolved. Extubated on 07/28/2019. Saturating well on room air at the moment. (2) Acute encephalopathy Is this a current diagnosis for this admission?: Yes Plan: Secondary to drug overdose (Elavil and Seroquel). (3) Drug overdose, multiple drugs Is this a current diagnosis for this admission?: Yes Plan: Psych currently working on inpatient psych placement. (4) Lactic acidosis Is this a current diagnosis for this admission?: Yes Plan: Resolved. - Time Time Spent with patient: 15-24 minutes
[2019-08-02] MEDS: ATORVASTATIN CALCIUM 10 MG TABLET PO SCH (17:05)
[2019-08-02] MEDS: LEVOTHYROXINE SODIUM 0.1 MG TABLET PO SCH (17:05)
[2019-08-02] MEDS: INSULIN LISPRO 100 UNIT/ML 3 ML VIAL SUBCUT SCH ×2 (17:07→21:29)
[2019-08-02] MEDS ORDERED: INSULIN LISPRO 100 UNIT/ML 3 ML VIAL SUBCUT SCH (22:00)
[2019-08-02] MEDS: LORAZEPAM INJ 2 MG/1 ML VIAL IV PRN (23:17)
[2019-08-03] MEDS: INSULIN LISPRO 100 UNIT/ML 3 ML VIAL SUBCUT SCH ×4 (07:14→21:43)
[2019-08-03] MEDS: LISINOPRIL 10 MG TABLET PEG SCH (09:43)
[2019-08-03] MEDS: AMLODIPINE BESYLATE 10 MG TABLET PEG SCH (09:44)
[2019-08-03] MEDS: ENOXAPARIN SODIUM INJ 30 MG/0.3 ML DISP.SYRIN SUBCUT SCH (09:44)
[2019-08-03] MEDS: GABAPENTIN 400 MG CAPSULE PO PRN ×2 (09:47→21:43)
[2019-08-03] MEDS: LORAZEPAM INJ 2 MG/1 ML VIAL IV PRN (12:17)
--- NOTE | 2019-08-03 12:53 | PDOC PROGRESS REPORT ---
Subjective Progress Note for:: 08/03/19 Subjective:: This is a 4-year-old female who was found unconscious at home. Patient was found obtunded and was subsequently intubated. She was admitted to the ICU and was treated for an overdose likely from intentional ingestion of Seroquel and Elavil. Patient was subsequently extubated on 07/28/2019. She was IVCed and psych placing her for inpatient psych treatment. 08/01: Assumed care today. Verbal sign out received from the production weigher. Patient denies acute complaints. She denies chest pain or shortness of breath. Discussed with psych team as well who will initiate placement process. 08/02: Patient request her PEG to be taken out as she has been tolerating regular diet well without any issues. Discussed with surgery who has agreed to remove PEG tube today. Discussed with psychiatry team who is currently working on inpatient psych placement. 08/03: No acute event overnight. She denies acute complaints. Denies suicidal or homicidal ideations. We discussed current plan and disposition and recommendation from the psych team. she verbalizes that she wants to talk to the lead psychiatrist for further insight why there is a need for her to be placed for inpatient psych. Reason For Visit: DRUG OVERDOSE Physical Exam Vital Signs: Temp Pulse Resp BP Pulse Ox 98.7 F 91 16 130/82 H 100 08/03/19 11:39 08/03/19 11:39 08/03/19 11:39 08/03/19 11:39 08/03/19 11:39 Intake & Output 08/02/19 08/03/19 08/04/19 06:59 06:59 06:59 Intake Total 1410 1410 600 Balance 1410 1410 600 Weight 123 lb 3.814 oz 123 lb 10.869 oz General appearance: PRESENT: no acute distress, well-developed, well-nourished Head exam: PRESENT: atraumatic, normocephalic Eye exam: PRESENT: conjunctiva pink, EOMI, PERRLA. ABSENT: scleral icterus Ear exam: PRESENT: normal external ear exam Mouth exam: PRESENT: moist, tongue midline Neck exam: ABSENT: carotid bruit, JVD, lymphadenopathy, thyromegaly Respiratory exam: PRESENT: clear to auscultation jaqueline. ABSENT: rales, rhonchi, wheezes Cardiovascular exam: PRESENT: RRR. ABSENT: diastolic murmur, rubs, systolic murmur Pulses: PRESENT: normal dorsalis pedis pul GI/Abdominal exam: PRESENT: normal bowel sounds, soft. ABSENT: distended, guarding, mass, organolmegaly, rebound, tenderness Rectal exam: PRESENT: deferred Extremities exam: PRESENT: full ROM. ABSENT: calf tenderness, clubbing, pedal e ashok Neurological exam: PRESENT: alert, awake, oriented to person, oriented to place, oriented to time, oriented to situation, CN II-XII grossly intact. ABSENT: motor sensory deficit Results Laboratory Results: 08/01/19 08:11 08/01/19 08:11 07/27/19 07/27/19 12:10 12:10 Creatine Kinase 32 CK-MB (CK-2) 0.64 Troponin I < 0.012 NT-Pro-B Natriuret Pep 256 Impressions: Chest X-Ray 07/27/19 12:17 IMPRESSION: Endotracheal tube tip in good positioning. No focal infiltrates Cervical Spine CT 07/27/19 12:18 IMPRESSION: CHRONIC DEGENERATIVE CHANGES. NO ACUTE FINDINGS. Head CT 07/27/19 12:18 IMPRESSION: 1. No acute intracranial pathology. 2. Frothy fluid within the nasal cavity and oropharynx. Correlate with evidence of epistaxis. EVIDENCE OF ACUTE STROKE: NO. Shoulder X-Ray 07/29/19 00:00 IMPRESSION: 1. No fracture or dislocation of the right shoulder. 2. AC joint osteoarthrosis. Modified Barium Swallow 07/31/19 00:00 IMPRESSION: DEEP LARYNGEAL PENETRATION WITH THIN LIQUIDS. NO ASPIRATION. PLEASE SEE SPEECH PATHOLOGIST REPORT FOR OTHER FINDINGS AND RECOMMENDATIONS. Assessment and Plan - Diagnosis (1) Acute respiratory failure with hypoxemia Is this a current diagnosis for this admission?: Yes Plan: Secondary to acute toxic encephalopathy from drug overdose. Resolved. Extubated on 07/28/2019. Saturating well on room air at the moment. (2) Acute encephalopathy Is this a current diagnosis for this admission?: Yes Plan: Secondary to drug overdose (Elavil and Seroquel). (3) Drug overdose, multiple drugs Is this a current diagnosis for this admission?: Yes Plan: Psych currently working on inpatient psych placement. (4) Lactic acidosis Is this a current diagnosis for this admission?: Yes Plan: Resolved.
--- NOTE | 2019-08-03 15:39 | PSYCHOLOGICAL NOTE ---
Psych Note - Psych Note Date seen by psych provider: 08/03/19 Psych Note: Presenting Problem: IVC, OD of Seroquel and Amitriptyline, second one in a 2 month period both required intubation. She was extubated on 07/29/19. Dr. Crawford saw patient for evaluation today. There will be further doc umentation by her based on that evaluation and interaction. Medications that EMS brought with patient to this hospital visit were: Seroquel empty, Baclofen empty, Elavil 11, Metformin 104, Gabapentin 63, Baclofen 78, Aspirin 89, Amlodipine 25, Lisinopril 117, Atorvastatin 42 and Levothyroxone 45. 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 MRI, Sleep/Wake EEG on chart. She has spinal effusion. The previous OD visit EMS found patient with a pillow over her head. Radha Otoole [phone] is a doorperson or luggage porter for patient. Medication recommendations made by the psychiatric medication provider, Dr. Lang MD., includes: Discontinue Ativan 1MG IV every 6 hours as needed Discontinue Elavil 50MG at night Discontinue Seroquel 100MG at night Decrease Neurontin to 800MG twice a day (also has mood stabilization component) No Ambien (was a previous home medication, last visit was for Ambien OD) Add Depakote DR 250MG twice a day for mood stabilization (not Effexor as was suggested yesterday) Add Buspar 5MG in the morning for anxiety/calming effect/depression 10MG at night for anxiety/calming effect/depression/sleep Diagnosis: OD Impression/Plan: Recommendation to maintain IVC. There is concern given she had 2 overdoses in a 6 week period that required intubation. Medication recommendations have been updated today and none started yet. Consulted with Dr. Crawford regarding the management and care of patient. Attending Hospitalist aware of recommendations.
[2019-08-03] MEDS: ATORVASTATIN CALCIUM 10 MG TABLET PO SCH (17:29)
[2019-08-03] MEDS: DIVALPROEX SODIUM 250 MG TABLET.DR PO SCH (17:29)
[2019-08-03] MEDS: LEVOTHYROXINE SODIUM 0.1 MG TABLET PO SCH (17:30)
[2019-08-03] MEDS: ACETAMINOPHEN 325 MG TABLET PO PRN (17:49)
[2019-08-03] MEDS: BUSPIRONE HCL 10 MG TABLET PO SCH (21:43)
[2019-08-03] MEDS: TRAZODONE HCL 50 MG TABLET PO PRN (23:20)
[2019-08-04] MEDS: DIVALPROEX SODIUM 250 MG TABLET.DR PO SCH ×2 (06:53→17:31)
[2019-08-04] MEDS: INSULIN LISPRO 100 UNIT/ML 3 ML VIAL SUBCUT SCH ×4 (08:52→22:06)
[2019-08-04] MEDS: BUSPIRONE HCL 10 MG TABLET PO SCH ×3 (09:09→21:47)
[2019-08-04] MEDS: AMLODIPINE BESYLATE 10 MG TABLET PEG SCH (09:09)
[2019-08-04] MEDS: LISINOPRIL 10 MG TABLET PEG SCH (09:09)
[2019-08-04] MEDS: ENOXAPARIN SODIUM INJ 30 MG/0.3 ML DISP.SYRIN SUBCUT SCH (09:09)
[2019-08-04] MEDS: GABAPENTIN 400 MG CAPSULE PO PRN ×2 (10:18→22:07)
--- NOTE | 2019-08-04 11:45 | PDOC PROGRESS REPORT ---
Subjective Progress Note for:: 08/04/19 Subjective:: This is a 4-year-old female who was found unconscious at home. Patient was found obtunded and was subsequently intubated. She was admitted to the ICU and was treated for an overdose likely from intentional ingestion of Seroquel and Elavil. Patient was subsequently extubated on 07/28/2019. She was IVCed and psych placing her for inpatient psych treatment. 08/01: Assumed care today. Verbal sign out received from the metal sander. Patient denies acute complaints. She denies chest pain or shortness of breath. Discussed with psych team as well who will initiate placement process. 08/02: Patient request her PEG to be taken out as she has been tolerating regular diet well without any issues. Discussed with surgery who has agreed to remove PEG tube today. Discussed with psychiatry team who is currently working on inpatient psych placement. 08/03: No acute event overnight. She denies acute complaints. Denies suicidal or homicidal ideations. We discussed current plan and disposition and recommendation from the psych team. she verbalizes that she wants to talk to the lead psychiatrist for further insight why there is a need for her to be placed for inpatient psych. 08/04: No issues overnight. She is sitting with a friend of hers. She does not appear to be in any distress. She is asking when she is going home. Reason For Visit: DRUG OVERDOSE Physical Exam Vital Signs: Temp Pulse Resp BP Pulse Ox 98.0 F 92 16 152/91 H 97 08/04/19 07:17 08/04/19 07:17 08/04/19 07:17 08/04/19 07:17 08/04/19 07:17 Intake & Output 08/03/19 08/04/19 08/05/19 06:59 06:59 06:59 Intake Total 1410 1400 Balance 1410 1400 Weight 123 lb 10.869 oz 122 lb 9.232 oz Exam: Patient is no acute distress Alert oriented to time place person No anxiety or depression Head: atraumatic normocephalic Pupils: are equal reactive Neck: is supple and trachea is central no lymphadenopathy No pharyngeal erythema or exudates Heart: Regular rate and rhythm Lungs: clear no distress Abdomen: nontender nondistended. Site of PEG tube is healing very nicely Neurological exam: unremarkable Musculoskeletal: No joint swelling or effusion chronic lower back pain and tenderness No suicidal or homicidal ideation Results Laboratory Results: 08/01/19 08:11 08/01/19 08:11 07/27/19 07/27/19 12:10 12:10 Creatine Kinase 32 CK-MB (CK-2) 0.64 Troponin I < 0.012 NT-Pro-B Natriuret Pep 256 Impressions: Chest X-Ray 07/27/19 12:17 IMPRESSION: Endotracheal tube tip in good positioning. No focal infiltrates Cervical Spine CT 07/27/19 12:18 IMPRESSION: CHRONIC DEGENERATIVE CHANGES. NO ACUTE FINDINGS. Head CT 07/27/19 12:18 IMPRESSION: 1. No acute intracranial pathology. 2. Frothy fluid within the nasal cavity and oropharynx. Correlate with evidence of epistaxis. EVIDENCE OF ACUTE STROKE: NO. Shoulder X-Ray 07/29/19 00:00 IMPRESSION: 1. No fracture or dislocation of the right shoulder. 2. AC joint osteoarthrosis. Modified Barium Swallow 07/31/19 00:00 IMPRESSION: DEEP LARYNGEAL PENETRATION WITH THIN LIQUIDS. NO ASPIRATION. PLEASE SEE SPEECH PATHOLOGIST REPORT FOR OTHER FINDINGS AND RECOMMENDATIONS. Assessment and Plan - Diagnosis (1) Acute encephalopathy Is this a current diagnosis for this admission?: Yes Plan: Secondary to drug overdose (2) Drug overdose, multiple drugs Is this a current diagnosis for this admission?: Yes Plan: She has been evaluated by psychiatry. (3) Lactic acidosis Is this a current diagnosis for this admission?: Yes Plan: Resolved. (4) Acute respiratory failure with hypoxemia Is this a current diagnosis for this admission?: Yes Plan: Secondary to acute toxic encephalopathy from drug overdose. Resolved. Extubated on 07/28/2019. Saturating well on room air.
--- NOTE | 2019-08-04 14:39 | PSYCHOLOGICAL NOTE ---
<KYRA PAK - Last Filed: 08/05/19 07:57> Psych Note - Psych Note Date seen by psych provider: 08/04/19 Psych Note: Presenting Problem: IVC, OD of Seroquel and Amitriptyline, second one in a 2 month period both required intubation. She was extubated on 07/29/19. Continued placement efforts based on Dr. Crawford's recommendations after face to face yesterday (08/03/19). Most places are full. Diagnosis: OD Impression/Plan: Recommendation to maintain IVC. There is concern given she had 2 overdoses in a 6 week period that required intubation. Consulted with Dr. Crawford regarding the management and care of patient. Attending Hospitalist aware of recommendations. <ASTRID CRAWFORD - Last Filed: 08/06/19 12:47> Psych Note - Psych Note Time seen by psych provider: 13:00 Psych Note: Met with Patient as she requested to understand the reason she was being transferred to a psychiatric facility. It was explained to patient that 2 suicide attempts or overdoses within a 6 week period was considered high risk behavior, as well as her as admission of abuse and overuse of ambien and xanax. Patient was upset and indicated she had no one to feed her cat despite her neighbor already having that responsibility, and other concerns that would not matter if she had succeeded in dying. When confronted with the multiple EMS visits to her home for "medical concerns" such as attempted suffocation by placing a pillow over her head, the patient demonstrated she was initially surprised I knew that information then tried to deny EMS came to her home. In summary, during the conversation it became more clear the patient remained at risk for continued self harm as she was adamant that she required her Seroquel and or Xanax that the overnight physician has prescribed (and she did not tell she had a prior addiction too). Review of patient's brain MRI's revealed 2 prior strokes and language consistent with neurodegenerative brain disease (likely dementia), and physicians were encouraged to avoid prescribing benzodiazepines, antipsychotics, sleep medications, and opiates as they tend to cause or exacerbate memory problems, increased aggression and irritability, decreased insight, judgment, ad insight, hallucinations and other psychosis. Patient was not receptive to such feedback. As such, continued IVC and inpatient psychiatric hospitalization was recommended.
[2019-08-04] MEDS: ATORVASTATIN CALCIUM 10 MG TABLET PO SCH (17:26)
[2019-08-04] MEDS: LEVOTHYROXINE SODIUM 0.1 MG TABLET PO SCH (17:27)
[2019-08-04] MEDS: TRAZODONE HCL 50 MG TABLET PO PRN (22:07)
[2019-08-05] MEDS: DIVALPROEX SODIUM 250 MG TABLET.DR PO SCH ×2 (06:08→17:03)
[2019-08-05] MEDS: INSULIN LISPRO 100 UNIT/ML 3 ML VIAL SUBCUT SCH ×4 (08:07→21:57)
[2019-08-05] MEDS: ENOXAPARIN SODIUM INJ 30 MG/0.3 ML DISP.SYRIN SUBCUT SCH (10:06)
[2019-08-05] MEDS: AMLODIPINE BESYLATE 10 MG TABLET PEG SCH (10:06)
[2019-08-05] MEDS: LISINOPRIL 10 MG TABLET PEG SCH (10:06)
[2019-08-05] MEDS: BUSPIRONE HCL 10 MG TABLET PO SCH ×2 (10:08→21:33)
[2019-08-05] MEDS: GABAPENTIN 400 MG CAPSULE PO PRN ×2 (10:10→21:59)
--- NOTE | 2019-08-05 13:02 | PDOC PROGRESS REPORT ---
Subjective Progress Note for:: 08/05/19 Subjective:: This is a 4-year-old female who was found unconscious at home. Patient was found obtunded and was subsequently intubated. She was admitted to the ICU and was treated for an overdose likely from intentional ingestion of Seroquel and Elavil. Patient was subsequently extubated on 07/28/2019. She was IVCed and psych placing her for inpatient psych treatment. 08/01: Assumed care today. Verbal sign out received from the control supervisor. Patient denies acute complaints. She denies chest pain or shortness of breath. Discussed with psych team as well who will initiate placement process. 08/02: Patient request her PEG to be taken out as she has been tolerating regular diet well without any issues. Discussed with surgery who has agreed to remove PEG tube today. Discussed with psychiatry team who is currently working on inpatient psych placement. 08/03: No acute event overnight. She denies acute complaints. Denies suicidal or homicidal ideations. We discussed current plan and disposition and recommendation from the psych team. she verbalizes that she wants to talk to the lead psychiatrist for further insight why there is a need for her to be placed for inpatient psych. 08/04: No issues overnight. She is sitting with a friend of hers. She does not appear to be in any distress. She is asking when she is going home. 08/05: No acute events. No medical issues to address. Reason For Visit: DRUG OVERDOSE Physical Exam Vital Signs: Temp Pulse Resp BP Pulse Ox 98.2 F 99 16 136/79 H 99 08/05/19 00:17 08/05/19 00:17 08/05/19 00:17 08/05/19 00:17 08/05/19 00:17 Intake & Output 08/04/19 08/05/19 08/06/19 06:59 06:59 06:59 Intake Total 1400 1220 Balance 1400 1220 Weight 122 lb 9.232 oz 124 lb 1.924 oz Exam: Patient is no acute distress Alert oriented to time place person No anxiety or depression Head: atraumatic normocephalic Pupils: are equal reactive Neck: is supple and trachea is central no lymphadenopathy No pharyngeal erythema or exudates Heart: Regular rate and rhythm Lungs: clear no distress Abdomen: nontender nondistended. Site of PEG tube is healing very nicely Neurological exam: unremarkable Musculoskeletal: No joint swelling or effusion chronic lower back pain and tenderness No suicidal or homicidal ideation Results Laboratory Results: 08/01/19 08:11 08/01/19 08:11 07/27/19 07/27/19 12:10 12:10 Creatine Kinase 32 CK-MB (CK-2) 0.64 Troponin I < 0.012 NT-Pro-B Natriuret Pep 256 Impressions: Chest X-Ray 07/27/19 12:17 IMPRESSION: Endotracheal tube tip in good positioning. No focal infiltrates Cervical Spine CT 07/27/19 12:18 IMPRESSION: CHRONIC DEGENERATIVE CHANGES. NO ACUTE FINDINGS. Head CT 07/27/19 12:18 IMPRESSION: 1. No acute intracranial pathology. 2. Frothy fluid within the nasal cavity and oropharynx. Correlate with evidence of epistaxis. EVIDENCE OF ACUTE STROKE: NO. Shoulder X-Ray 07/29/19 00:00 IMPRESSION: 1. No fracture or dislocation of the right shoulder. 2. AC joint osteoarthrosis. Modified Barium Swallow 07/31/19 00:00 IMPRESSION: DEEP LARYNGEAL PENETRATION WITH THIN LIQUIDS. NO ASPIRATION. PLEASE SEE SPEECH PATHOLOGIST REPORT FOR OTHER FINDINGS AND RECOMMENDATIONS. Assessment and Plan - Diagnosis (1) Acute encephalopathy Is this a current diagnosis for this admission?: Yes Plan: Secondary to drug overdose Resolved (2) Drug overdose, multiple drugs Is this a current diagnosis for this admission?: Yes Plan: She has been evaluated by psychiatry. She is under IVC per psych. (3) Lactic acidosis Is this a current diagnosis for this admission?: Yes Plan: Resolved. (4) Acute respiratory failure with hypoxemia Is this a current diagnosis for this admission?: Yes Plan: Secondary to acute toxic encephalopathy from drug overdose. Resolved. Extubated on 07/28/2019. Saturating well on room air.
--- NOTE | 2019-08-05 14:56 | PSYCHOLOGICAL NOTE ---
Psych Note - Psych Note Date seen by psych provider: 08/05/19 Time seen by psych provider: 12:00 - Discussion with Patient Advocate, followed by chart review followed by evalulation. Psych Note: Presenting Problem: IVC, OD of Seroquel and Amitriptyline, second one in a 2 month period both required intubation. She was extubated on 07/29/19. Patient Advocate involved because patient complained about IVC and having to go inpatient since it was not intentional, she is missing medical appointments while in hospital and she has cats at home (neighbor has been taking care of them and is available for next two weeks) that she needs to get back to. Medication recommendations started the night of 08/03/19 (the day they were provided) however Buspar not given per JAN. Today patient continued to deny intentional OD. She asked what was going to be done about her leg/nerve pain. She reported Buspar did not work in the past so she was not going to take it. She agreed to try it after being made aware she did not have it in conjunction with Depakote in the past. She commented "I do not have a mood problem why do I need mood stabilizer" after commenting she had been on numerous antidepressants in the past." She stated she needed something for sleep and the trazodone p rovided last night was not effective. She mentioned being involved in [facility]din and a recovery program. She did not seem to understand the severity of 2 ODs in 6 weeks, where she was unresponsive, required intubation during being unresponsive and sedated/intubated there is concern for hypoxia which can have long lasting effects. She stated she has home health nurses and was again reminded that even with them (only come twice a week) she still had 2 overdoses. Diagnosis: OD Impression/Plan: Recommendation to maintain IVC. There is concern given she had 2 overdoses in a 6 week period that required intubation. Consulted with Dr. Crawford regarding the management and care of patient. Attending Hospitalist aware of recommendations. Patient accepted to [facility] at and can get there at 0900 tomorrow (08/06/19) morning. Will move forward with that placement. Patient aware and provided pamphlet on facility.
[2019-08-05] MEDS: ATORVASTATIN CALCIUM 10 MG TABLET PO SCH (17:03)
[2019-08-05] MEDS: LEVOTHYROXINE SODIUM 0.1 MG TABLET PO SCH (17:03)
[2019-08-05] MEDS: TRAZODONE HCL 50 MG TABLET PO PRN (21:57)
[2019-08-06] MEDS: DIVALPROEX SODIUM 250 MG TABLET.DR PO SCH (06:57)
[2019-08-06] MEDS: INSULIN LISPRO 100 UNIT/ML 3 ML VIAL SUBCUT SCH (07:50)
[2019-08-06] MEDS: GABAPENTIN 400 MG CAPSULE PO PRN (08:54)
[2019-08-06 09:11] VITALS: BP 150/87
[2019-08-06] MEDS: BUSPIRONE HCL 10 MG TABLET PO SCH (09:30)
[2019-08-06] MEDS: AMLODIPINE BESYLATE 10 MG TABLET PEG SCH (09:30)
[2019-08-06] MEDS: LISINOPRIL 10 MG TABLET PEG SCH (09:30)
[2019-08-06] MEDS: ENOXAPARIN SODIUM INJ 30 MG/0.3 ML DISP.SYRIN SUBCUT SCH (09:33)
--- NOTE | 2019-08-06 11:37 | PDOC DISCHARGE SUMMARY ---
General - Admit/Disc Date/PCP Admission Date/Primary Care Provider: 07/27/19 14:40 CLINTON TIDWELL MD Discharge Date: 08/06/19 - Discharge Diagnosis (1) Acute encephalopathy Is this a current diagnosis for this admission?: Yes (2) Drug overdose, multiple drugs Is this a current diagnosis for this admission?: Yes (3) Lactic acidosis Is this a current diagnosis for this admission?: Yes (4) Acute respiratory failure with hypoxemia Is this a current diagnosis for this admission?: Yes - Additional Information Resuscitation Status: Full Code Home Medications: Amitriptyline HCl [Elavil 25 mg Tablet] 25 mg PO QHS 07/27/19 Amitriptyline HCl [Elavil 25 mg Tablet] 50 mg PO QHS 07/27/19 Amlodipine Besylate [Norvasc 10 mg Tablet] 10 mg PO DAILY 07/27/19 Atorvastatin Calcium [Lipitor 10 mg Tablet] 10 mg PO QPM 07/27/19 Baclofen [Baclofen 10 mg Tablet] 10 mg PO TIDP PRN 07/27/19 Gabapentin [Neurontin] 800 mg PO QIDP PRN 07/27/19 Insulin Lispro [Humalog Kwikpen] 0 unit SQ .SLDSCALE MDD 60 07/27/19 Levothyroxine Sodium 200 mcg PO 1800 07/27/19 Lisinopril 20 mg PO DAILY 07/27/19 Metformin HCl [Glucophage] 1,000 mg PO BID 07/27/19 Quetiapine Fumarate [Seroquel 100 mg Tablet] 100 mg PO QHS 07/27/19 History of Present Illness History of Present Illness: SHELLEY RODRÍGUEZ is a 54 year old female Hospital Course Hospital Course: This is a 4-year-old female who was found unconscious at home. Patient was found obtunded and was subsequently intubated. She was admitted to the ICU and was treated for an overdose likely from intentional ingestion of Seroquel and Elavil. Patient was subsequently extubated on 07/28/2019. She was IVCed and psych placing her for inpatient psych treatment. 08/01: Assumed care today. Verbal sign out received from the garage supervisor. Patient denies acute complaints. She denies chest pain or shortness of breath. Discussed with psych team as well who will initiate placement process. 08/02: Patient request her PEG to be taken out as she has been tolerating regular diet well without any issues. Discussed with surgery who has agreed to remove PEG tube today. Discussed with psychiatry team who is currently working on inpatient psych placement. 08/03: No acute event overnight. She denies acute complaints. Denies suicidal or homicidal ideations. We discussed current plan and disposition and recommendation from the psych team. she verbalizes that she wants to talk to the lead psychiatrist for further insight why there is a need for her to be placed for inpatient psych. 08/04: No issues overnight. She is sitting with a friend of hers. She does not appear to be in any distress. She is asking when she is going home. 08/05: No acute events. No medical issues to address. (1) Acute encephalopathy Secondary to drug overdose Resolved (2) Drug overdose, multiple drugs She has been evaluated by psychiatry. She is under IVC per psych. (3) Lactic acidosis Resolved. (4) Acute respiratory failure with hypoxemia Secondary to acute toxic encephalopathy from drug overdose. Resolved. Extubated on 07/28/2019. Saturating well on room air. Patient is being taken by the geriatric physician to be transferred to inpatient psych facility in a stable condition. Physical Exam Vital Signs: Temp Pulse Resp BP Pulse Ox 98.1 F 88 16 150/87 H 98 08/06/19 07:22 08/06/19 07:22 08/06/19 07:22 08/06/19 07:22 08/06/19 07:22 Intake & Output 08/05/19 08/06/19 08/07/19 06:59 06:59 06:59 Intake Total 1220 1307 Balance 1220 1307 Weight 124 lb 1.924 oz 124 lb 8.979 oz Exam: Patient is no acute distress Alert oriented to time place person No anxiety or depression Head: atraumatic normocephalic Pupils: are equal reactive Neck: is supple and trachea is central no lymphadenopathy No pharyngeal erythema or exudates Heart: Regular rate and rhythm Lungs: clear no distress Abdomen: nontender nondistended. Site of PEG tube is healing very nicely Neurological exam: unremarkable Musculoskeletal: No joint swelling or effusion chronic lower back pain and tenderness No suicidal or homicidal ideation Results Laboratory Results: 08/01/19 08:11 08/01/19 08:11 07/27/19 07/27/19 12:10 12:10 Creatine Kinase 32 CK-MB (CK-2) 0.64 Troponin I < 0.012 NT-Pro-B Natriuret Pep 256 Impressions: Chest X-Ray 07/27/19 12:17 IMPRESSION: Endotracheal tube tip in good positioning. No focal infiltrates Cervical Spine CT 07/27/19 12:18 IMPRESSION: CHRONIC DEGENERATIVE CHANGES. NO ACUTE FINDINGS. Head CT 07/27/19 12:18 IMPRESSION: 1. No acute intracranial pathology. 2. Frothy fluid within the nasal cavity and oropharynx. Correlate with evidence of epistaxis. EVIDENCE OF ACUTE STROKE: NO. Shoulder X-Ray 07/29/19 00:00 IMPRESSION: 1. No fracture or dislocation of the right shoulder. 2. AC joint osteoarthrosis. Modified Barium Swallow 07/31/19 00:00 IMPRESSION: DEEP LARYNGEAL PENETRATION WITH THIN LIQUIDS. NO ASPIRATION. PLEASE SEE SPEECH PATHOLOGIST REPORT FOR OTHER FINDINGS AND RECOMMENDATIONS. Qualifiers - * PATIENT BEING DISCHARGED WITH ANY OF THE FOLLOWING DIAGNOSIS: No Acute Heart Failure - Is this a Heart Failure Patient?: No Plan Time Spent: Greater than 30 Minutes - 33 minutes
== END 2019-08-06 10:06 | DRG 917 ==
LOC: ER 12:01 → EH 14:40 → ICU 16:06 → 4S 07-31 19:33
PROVIDERS: ADMIT Hospitalist; ATTEND Hospitalist
PROC: 5A1945Z Respiratory Ventilation, 24-96 Consecutive Hours (ICD-10-PCS; principal; 2019-07-27)
PROC: 0BH17EZ Insertion of Endotracheal Airway into Trachea, Via Natural or Artificial Opening (ICD-10-PCS; 2019-07-27)
PROC: 0DP6XUZ Removal of Feeding Device from Stomach, External Approach (ICD-10-PCS; 2019-08-02)
DX: T43.592A Poisoning by other antipsychotics and neuroleptics, intentional self-harm, initial encounter (principal); J96.01 Acute respiratory failure with hypoxia; G92 Toxic encephalopathy; E87.2 Acidosis; N17.9 Acute kidney failure, unspecified; T43.012A Poisoning by tricyclic antidepressants, intentional self-harm, initial encounter; F17.210 Nicotine dependence, cigarettes, uncomplicated; J44.9 Chronic obstructive pulmonary disease, unspecified; E11.9 Type 2 diabetes mellitus without complications; E03.9 Hypothyroidism, unspecified; F32.9 Major depressive disorder, single episode, unspecified; Z60.2 Problems related to living alone; Y92.9 Unspecified place or not applicable; Z79.899 Other long term (current) drug therapy; Z78.1 Physical restraint status; Z88.0 Allergy status to penicillin
CPT/HCPCS: 36415; 51702; 70450; 71045; 72125; 74230; 80048; 80053; 80307; 81001; 82140; 82550; 82553; 82803; 82962; 83605; 83735; 83880; 84439; 84443; 84481; 84484; 85025; 87040; 87070; 87077; 87205; 93005; 93010; 94002; 94003; 94640; 96361; 96365; 96368; 96375; 99291; J0330; J1630; J1650; J1815; J1956; J2060; J2310; J2704; J3370; J3490; J7030; J7120; J7620; S0028

== ENCOUNTER 2019-09-24 22:08 | Inpatient (IN) | payer MEDICARE ==
[~2019-09-24 22:08] MED LIST changes: -DIAZEPAM 5 MG TABLET ONE; +ETOMIDATE INJ/PF 20 MG/10 ML SDV IV ONE
[2019-09-24] MEDS ORDERED: NALOXONE HCL INJ 2 MG/2 ML DISP.SYRIN ONE (22:17)
[2019-09-24] MEDS ORDERED: NALOXONE HCL INJ 2 MG/2 ML DISP.SYRIN IV ONE (22:23)
[2019-09-24 22:47] LABS: ABSOLUTE LYMPHOCYTES (AUTO) 1.7 10^3/uL (0.5-4.7); ABSOLUTE MONOCYTES (AUTO) 0.6 10^3/uL (0.1-1.4); ABSOLUTE NEUT (AUTO) 12.2 10^3/uL (1.7-8.2); BASOPHILS % (AUTO) 0.3 % (0-2); EOSINOPHILS % (AUTO) 0.1 % (0-6); HEMATOCRIT 39.9 % (36.0-47.0); HEMOGLOBIN 13.3 g/dL (12.0-15.5); LYMPHOCYTES % (AUTO) 11.7 % (13-45); MEAN CORPUSCULAR HEMOGLOBIN 27.7 pg (27.0-33.4); MEAN CORPUSCULAR HGB CONC 33.4 g/dL (32.0-36.0); MEAN CORPUSCULAR VOLUME 83 fl (80-97); PLATELET COUNT 432 10^3/uL (150-450); RED BLOOD COUNT 4.82 10^6/uL (3.72-5.28); SEGMENTED NEUTROPHILS % (AUTO) 83.9 % (42-78); TOTAL CELLS COUNTED % (AUTO) 100 %; WHITE BLOOD COUNT 14.5 10^3/uL (4.0-10.5)
[2019-09-24] MEDS ORDERED: MIDAZOLAM HCL 50 MG/100 ML RTUINJ ONE (22:54)
[2019-09-24 23:02] LABS: ALBUMIN 3.3 g/dL (3.5-5.0); ALKALINE PHOSPHATASE 126 U/L (38-126); ANION GAP 14 (5-19); ASPARTATE AMINO TRANSFERASE 30 U/L (14-36); BILIRUBIN,DIRECT 0.5 mg/dL (0.0-0.4); BILIRUBIN,TOTAL 0.6 mg/dL (0.2-1.3); BLOOD UREA NITROGEN 29 mg/dL (7-20); CALCIUM 8.5 mg/dL (8.4-10.2); CARBON DIOXIDE 21 mmol/L (22-30); CHLORIDE 97 mmol/L (98-107); GLUCOSE 154 mg/dL (75-110); POTASSIUM 3.2 mmol/L (3.6-5.0); TOTAL PROTEIN 5.7 g/dL (6.3-8.2)
[2019-09-24] MEDS ORDERED: SUCCINYLCHOLINE CHLORIDE INJ 200 MG/10 ML VIAL IV ONE (23:02)
[2019-09-24] MEDS ORDERED: ETOMIDATE INJ/PF 20 MG/10 ML SDV IV ONE (23:02)
[2019-09-24 23:03] LABS: ACETAMINOPHEN < 10 ug/mL (10-30); ALCOHOL < 10 mg/dL (NONE DETECTED); SALICYLATE < 1.0 mg/dL (2.0-20.0)
--- NOTE | 2019-09-24 23:07 | RADIOLOGY REPORT (SQ) ---
EXAM DESCRIPTION: XR CHEST 1 VIEW COMPLETED DATE/TME: 09/24/2019 00:00 CLINICAL HISTORY: DECREASED RESPONSIVENESS COMPARISON: 07/27/2019 FINDINGS: Single frontal view of the chest. Cardiomediastinal silhouette: Normal size and contour. Lungs: No consolidation, pneumothorax, or pleural effusion. Bones: No acute osseous abnormality. Leads overlie the chest. Upper abdomen: No abnormality identified. IMPRESSION: 1. No acute pulmonary process identified.
--- NOTE | 2019-09-25 00:06 | RADIOLOGY REPORT (SQ) ---
EXAM DESCRIPTION: XR CHEST 1 VIEW COMPLETED DATE/TME: 09/24/2019 23:13 CLINICAL HISTORY: 54 years, Female, post intubation COMPARISON: Prior study from earlier the same day NUMBER OF VIEWS: Two TECHNIQUE: Two frontal radiographs of the chest were acquired LIMITATIONS: None. FINDINGS: Endotracheal tube tip is located within the lower thoracic trachea, approximately 2.8 cm above the larisa. Enteric drainage tube tip curls within the gastric fundus. Cardiac and mediastinal contours are stable. Lungs appear clear. No pleural effusion or pneumothorax. IMPRESSION: Endotracheal tube tip is located within the trachea, approximately 2.8 cm above the larisa. Otherwise, clear lungs. copyright 2010 [employer]- All Rights Reserved
--- NOTE | 2019-09-25 00:31 | ER Document Report ---
Entered by ZELALEM TO SCRIBE 09/24/19 [id number] Acting as scribe for:FABIOLA CARR IV, MD ED Psych Disorder / Suicide - General Chief Complaint: Unresponsive Stated Complaint: UNRESPONSIVE Time Seen by Provider: 09/24/19 22:15 Mode of Arrival: Medic Information source: Emergency Med Personnel, [facility] Records Cannot obtain history due to: Altered mental status Notes: 54-year-old female that presents today after an attempted overdose of unknown medication. Patient has been seen here twice in the past requiring intubation for overdose. During those visits it was thought that the patient had overdosed on Seroquel and amitriptyline. According to EMS the patient's roommate found the patient unresponsive on the floor. History is unable to be obtained due to mental status, GCS of 7. Upon review of pharmacy records, the patient filled prescriptions for amitriptyline 25 mg, gabapentin 800 mg, quetiapine 100mg, and tramadol 50 mg yesterday. TRAVEL OUTSIDE OF THE [place] IN LAST 30 DAYS: No - Related Data Allergies/Adverse Reactions: Penicillins Allergy (Verified 05/28/19 18:43) Past Medical History - General Information source: [facility] Records Cannot obtain history due to: Altered mental status - Social History Smoking Status: Unknown if Ever Smoked Family History: None - Unable to be obtained due to altered mental status. Pulmonary Medical History: Reports: Hx COPD Endocrine Medical History: Reports: Hx Diabetes Mellitus Type 2, Hx Hypothyroidism Psychiatric Medical History: Reports: Hx Depression Review of Systems - Review of Systems -: Yes ROS unobtainable due to patient's medical condition Physical Exam - Vital signs Vitals: Resp Pulse Ox 16 97 09/24/19 22:11 09/24/19 22:11 - General General appearance: Other - Minimally responsive - HEENT Head: Normocephalic, Atraumatic - Respiratory Respiratory status: Depressed respirations Chest status: Nontender Breath sounds: Rhonchi - Cardiovascular Rhythm: Regular Heart sounds: Normal auscultation Murmur: No - Abdominal Inspection: Normal Distension: No distension Tenderness: Nontender - Extremities General upper extremity: Normal inspection. No: Edema General lower extremity: Normal inspection. No: Edema - Neurological Notes: GCS of 7 - Skin Skin Temperature: Warm Skin Moisture: Dry Skin Color: Normal Course - Vital Signs Vital signs: Temp Pulse Resp BP Pulse Ox 18 116/79 100 09/25/19 04:41 09/25/19 04:41 09/25/19 04:41 - Laboratory Result Diagrams: 09/24/19 22:35 09/24/19 22:35 Laboratory results interpreted by me: 09/24/19 09/24/19 09/24/19 00:44 22:35 22:35 WBC 14.5 H RDW 16.0 H Lymph % (Auto) 11.7 L Absolute Neuts (auto) 12.2 H Seg Neutrophils % 83.9 H Sodium 131.6 L Potassium 3.2 L Chloride 97 L Carbon Dioxide 21 L BUN 29 H Creatinine 2.42 H Est GFR ( Amer) 25 L Est GFR (MDRD) Non-Af 21 L Glucose 154 H POC Glucose Direct Bilirubin 0.5 H Total Protein 5.7 L Albumin 3.3 L Urine Protein 100 H Urine Glucose (UA) 50 H Urine Blood SMALL H Salicylates < 1.0 L Acetaminophen < 10 L Carbamazepine 09/24/19 09/24/19 22:35 22:37 WBC RDW Lymph % (Auto) Absolute Neuts (auto) Seg Neutrophils % Sodium Potassium Chloride Carbon Dioxide BUN Creatinine Est GFR ( Amer) Est GFR (MDRD) Non-Af Glucose POC Glucose 163 H Direct Bilirubin Total Protein Albumin Urine Protein Urine Glucose (UA) Urine Blood Salicylates Acetaminophen Carbamazepine 2.6 L - EKG Interpretation by Me Additional EKG results interpreted by me: 09/25/19 00:36 EKG done at 2221 hrs. on 09/24/2019 was interpreted by this MD. Findings: Normal sinus rhythm with a heart rate of 82, normal access there is a moderate amount of baseline artifact the QRS is 102 ms, the QTC is 566 ms. When compared to patient's prior EKG from 07/28/2019 at 055 7 hours the morphology appears grossly the same. The patient's QRS duration on the prior EKG was 96 ms and the QTC was 509 ms. Impression sinus rhythm with normal access, morphology similar to prior EKG, QT interval prolongation is present. - Consults dr walker Time consulted: 02:42 Reason for consultation: 09/25/19 02:42 ams, h/o o/d, respiratory failure, gcs 7 Consulted provider: will see as inpatient Procedures - Intubation Orotracheal Time of Intubation: 23:50 - gcs 7 Airway evaluation: Copious secretions, Other - poor dentition Mallampati Classification: Class 3 Medications: Etomidate, Succinylcholine Intubation method: Orotracheal Blade type: Kline Blade size: 4 Equipment used: Glidescope ETT size: 7.5 ETT secured at: Lips ETT secured at (cm): 23 Breath Sounds after Intubation: Equal End tidal CO2 confirmed: Yes Ventilator settings: SIMV Tidal volume: 400 FiO2: 30 Respirations: 12 PEEP: 5 Post Intubation Xray: Yes Intubation Complications: No complications Critical Care Note - Critical Care Note Total time excluding time spent on procedures (mins): 210 Discharge - Discharge Clinical Impression: H/O drug overdose, Hypokalemia, Hypothermia, Acute respiratory failure with hypoxemia Acute respiratory failure Qualifiers: Respiratory failure complication: hypoxia Qualified Code(s): J96.01 - Acute res piratory failure with hypoxia Condition: Critical Disposition: ADMITTED INPATIENT Admitting Provider: Rei (Hospitalist) - case d/w dr walker at 0242 hours. he accepted pt for admission to ICU Unit Admitted: ICU I personally performed the services described in the documentation, reviewed and edited the documentation which was dictated to the scribe in my presence, and it accurately records my words and actions.
[2019-09-25 01:06] LABS: APPEARANCE,URINE CLEAR; BILIRUBIN,URINE NEGATIVE (NEGATIVE); COLOR,URINE YELLOW; GLUCOSE, URINE 50 mg/dL (NEGATIVE); KETONES,URINE NEGATIVE (NEGATIVE); LEUKOCYTE ESTERASE,URINE NEGATIVE (NEGATIVE); NITRITE,URINE NEGATIVE (NEGATIVE); PROTEIN,URINE 100 mg/dL (NEGATIVE); UROBILINOGEN,URINE NEGATIVE mg/dL (<2.0)
[2019-09-25 01:12] LABS: URINE AMPHETAMINES SCREEN NEGATIVE; URINE BARBITURATES SCREEN NEGATIVE; URINE BENZODIAZEPINES SCREEN NEGATIVE; URINE COCAINE SCREEN NEGATIVE; URINE MARIJUANA (THC) SCREEN NEGATIVE; URINE METHADONE SCREEN NEGATIVE; URINE PHENCYCLIDINE SCREEN NEGATIVE
--- NOTE | 2019-09-25 01:44 | RADIOLOGY REPORT (SQ) ---
EXAM DESCRIPTION: CT HEAD WITHOUT IV CONTRAST COMPLETED DATE/TME: 09/24/2019 23:12 CLINICAL HISTORY: 54 years Female, altered mental status COMPARISON: 07/27/19 TECHNIQUE: No contrast. Coronal and sagittal reformat. This exam was performed according to our departmental dose-optimization program, which includes automated exposure control, adjustment of the mA and/or kV according to patient size and/or use of iterative reconstruction technique. FINDINGS: No hemorrhage or infarct. No mass, mass effect, or midline shift. Enteric and nasogastric tubes partially imaged. Brain and extra-axial structures appear otherwise intact. IMPRESSION: No acute findings.
[2019-09-25] MEDS ORDERED: POTASSI CL 20 MEQ/50 ML RIDER 20 MEQ/50 ML RTUPB IV ONE (02:01)
[2019-09-25] MEDS: NORMAL SALINE 1000 ML 1,000 ML IV PRN ×2 (02:20→11:02)
[2019-09-25] MEDS ORDERED: GLUCAGON,HUMAN RECOMB 1 MG INJ IM PRN (02:41)
[2019-09-25] MEDS ORDERED: DEXTROSE 50%-WATER 25 GM/50 ML DISP.SYRIN IV PRN ×2 (02:41)
[2019-09-25] MEDS ORDERED: IPRATROPIUM/ALBUTEROL 0.5-2.5 MG/3 ML AMPUL NEB PRN (02:41)
[2019-09-25] MEDS ORDERED: MAG HYDROX/AL HYDROX/SIMETH SUSP 30 ML UDCUP PO PRN (02:41)
[2019-09-25] MEDS ORDERED: DEXTROSE 40% GEL 15 GM TUBE PO PRN ×2 (02:41)
[2019-09-25] MEDS ORDERED: MIDAZOLAM HCL 50 MG/100 ML RTUINJ IV PRN (02:44)
[2019-09-25] MEDS ORDERED: FENTANYL CITRATE INJ/PF 100 MCG/2 ML AMPUL IV PRN (02:44)
[2019-09-25] MEDS ORDERED: NORMAL SALINE 1000 ML 1,000 ML IV PRN (02:45)
[2019-09-25] MEDS ORDERED: HEPARIN SOD (PORCINE) 5,000 UNIT/ML 1 ML VIAL SUBCUT SCH (06:00)
--- NOTE | 2019-09-25 06:07 | PDOC H&P ---
History of Present Illness Admission Date/PCP: 09/25/19 03:16 CLINTON TIDWELL MD Patient complains of: Overdose History of Present Illness: SHELLEY RODRÍGUEZ is a 54 year old female with a past medical history of diabetes, hypothyroidism, hypertension, COPD, bipolar and recurrent suicide attempt by medication presents to the emergency room after discovered by her roommate poorly responsive on the floor. In the emergency room she has a GCS of 7, hypotension and respiratory depression unable to protect her airway she is intubated. She is otherwise found to have acute renal failure and a prolonged QT interval. She is referred to the hospitalist for admission. Past Medical History Pulmonary Medical History: Reports: Chronic Obstructive Pulmonary Disease (COPD) Endocrine Medical History: Reports: Diabetes Mellitus Type 2, Hypothyroidism Psychiatric Medical History: Reports: Depression Traumatic Medical History: Denies: Gunshot Wound, Pneumothorax Hematology: Denies: Sickle Cell Disease Infectious Medical History: Denies: HIV Social History Information [facility] Lives with: Friend Smoking Status: Unknown if Ever Smoked Hx Recreational Drug Use: Yes Hx Prescription Drug Abuse: Yes - Advance Directive Resuscitation Status: Full Code Family History Family History: Other - Unobtainable Parental Family History Reviewed: No - Unobtainable Children Family History Reviewed: No - Unobtainable Sibling(s) Family History Reviewed.: No - Unobtainable Medication/Allergy Home Medications: Amitriptyline HCl [Elavil 25 mg Tablet] 25 mg PO QHS 07/27/19 Amitriptyline HCl [Elavil 25 mg Tablet] 50 mg PO QHS 07/27/19 Amlodipine Besylate [Norvasc 10 mg Tablet] 10 mg PO DAILY 07/27/19 Atorvastatin Calcium [Lipitor 10 mg Tablet] 10 mg PO QPM 07/27/19 Baclofen [Baclofen 10 mg Tablet] 10 mg PO TIDP PRN 07/27/19 Gabapentin [Neurontin] 800 mg PO QIDP PRN 07/27/19 Insulin Lispro [Humalog Kwikpen] 0 unit SQ .SLDSCALE MDD 60 07/27/19 Levothyroxine Sodium 200 mcg PO 1800 07/27/19 Lisinopril 20 mg PO DAILY 07/27/19 Metformin HCl [Glucophage] 1,000 mg PO BID 07/27/19 Quetiapine Fumarate [Seroquel 100 mg Tablet] 100 mg PO QHS 07/27/19 Allergies/Adverse Reactions: Penicillins Allergy (Verified 05/28/19 18:43) Review of Systems ROS unobtainable: Due to endotracheal tube, Due to mental status Physical Exam Vital Signs: Temp Pulse Resp BP Pulse Ox 19 115/74 100 09/25/19 05:21 09/25/19 05:21 09/25/19 05:21 Intake & Output 09/23/19 09/24/19 09/25/19 11:59 11:59 11:59 Intake Total 50 Balance 50 Weight 56.5 kg General appearance: PRESENT: disheveled, mild distress, well-developed, well- nourished. ABSENT: cooperative Head exam: PRESENT: atraumatic, normocephalic, other - 1 cm abrasion to the chin without open ulcer Eye exam: PRESENT: conjunctiva pink, EOMI, PERRLA. ABSENT: scleral icterus Ear exam: PRESENT: normal external ear exam Mouth exam: PRESENT: dry mucosa, tongue midline Neck exam: ABSENT: carotid bruit, JVD, lymphadenopathy, thyromegaly Respiratory exam: PRESENT: crackles, prolonged expiratory phas. ABSENT: rales, rhonchi, wheezes Cardiovascular exam: PRESENT: RRR. ABSENT: diastolic murmur, rubs, systolic murmur Pulses: PRESENT: normal dorsalis pedis pul Vascular exam: PRESENT: normal capillary refill GI/Abdominal exam: PRESENT: normal bowel sounds, soft. ABSENT: distended, guarding, mass, organolmegaly, rebound, tenderness Rectal exam: PRESENT: deferred Extremities exam: PRESENT: full ROM. ABSENT: calf tenderness, clubbing, pedal edema Neurological exam: PRESENT: altered. ABSENT: motor sensory deficit Psychiatric exam: PRESENT: other - Intubated and sedated. ABSENT: homicidal ideation, suicidal ideation Skin exam: PRESENT: abrasion - Bilateral abrasions to the lower extremities Results Laboratory Results: 09/24/19 22:35 09/24/19 22:35 09/24/19 09/24/19 09/24/19 00:44 22:35 22:35 WBC 14.5 H RBC 4.82 Hgb 13.3 Hct 39.9 MCV 83 MCH 27.7 MCHC 33.4 RDW 16.0 H Plt Count 432 Seg Neutrophils % 83.9 H Sodium 131.6 L Potassium 3.2 L Chloride 97 L Carbon Dioxide 21 L Anion Gap 14 BUN 29 H Creatinine 2.42 H Est GFR ( Amer) 25 L Glucose 154 H Calcium 8.5 Magnesium Total Bilirubin 0.6 AST 30 Alkaline Phosphatase 126 Total Protein 5.7 L Albumin 3.3 L Serum HCG, Qual Urine Color YELLOW Urine Appearance CLEAR Urine pH 6.0 Ur Specific [place] 1.010 Urine Protein 100 H Urine Glucose (UA) 50 H Urine Ketones NEGATIVE Urine Blood SMALL H Urine Nitrite NEGATIVE Ur Leukocyte Esterase NEGATIVE Urine WBC (Auto) 2 Urine RBC (Auto) 1 09/24/19 09/24/19 22:35 22:35 WBC RBC Hgb Hct MCV MCH MCHC RDW Plt Count Seg Neutrophils % Sodium Potassium Chloride Carbon Dioxide Anion Gap BUN Creatinine Est GFR ( Amer) Glucose Calcium Magnesium 1.8 Total Bilirubin AST Alkaline Phosphatase Total Protein Albumin Serum HCG, Qual NEGATIVE Urine Color Urine Appearance Urine pH Ur Specific [place] Urine Protein Urine Glucose (UA) Urine Ketones Urine Blood Urine Nitrite Ur Leukocyte Esterase Urine WBC (Auto) Urine RBC (Auto) 09/24/19 09/24/19 22:35 22:35 Creatine Kinase 84 Troponin I 0.807 Impressions: Head CT 09/24/19 23:12 IMPRESSION: No acute findings. Chest X-Ray 09/24/19 23:13 IMPRESSION: Endotracheal tube tip is located within the trachea, approximately 2.8 cm above the larisa. Otherwise, clear lungs. copyright 2010 [employer]- All Rights Reserved Assessment and Plan - Diagnosis (1) Long QT interval Is this a current diagnosis for this admission?: Yes Plan: Likely secondary to amitriptyline overdose, bicarb PRN (2) Acute respiratory failure Qualifiers: Respiratory failure complication: hypoxia Qualified Code(s): J96.01 - Acute respiratory failure with hypoxia Is this a current diagnosis for this admission?: Yes Plan: Secondary to polypharmacy overdose, intubated for airway protection (3) H/O drug overdose Is this a current diagnosis for this admission?: Yes Plan: Mental health consult when extubated (4) Hypokalemia Is this a current diagnosis for this admission?: Yes Plan: Follow-up magnesium, potassium repletion (5) Acute encephalopathy Is this a current diagnosis for this admission?: Yes Plan: Secondary to polypharmacy overdose. 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
[2019-09-25] MEDS ORDERED: HEPARIN SODIUM,PORCINE/D5W 25,000 UNIT/250 ML RTUINJ IV PRN (06:08)
[2019-09-25] MEDS ORDERED: HEPARIN SOD (PORCINE) 1,000 UNIT/ML 10 ML VIAL IV ONE (06:08)
[2019-09-25] MEDS ORDERED: INFLUENZA QUAD (6MOS+) 2019-20 VAC 0.5 ML SYR IM ONE (06:14)
[2019-09-25] MEDS ORDERED: ASPIRIN 81 MG TABLET, CHEWABLE NG ONE (06:30)
[2019-09-25 07:28] LABS: HEMATOCRIT 44.2 % (36.0-47.0); HEMOGLOBIN 14.8 g/dL (12.0-15.5); MEAN CORPUSCULAR HEMOGLOBIN 27.6 pg (27.0-33.4); MEAN CORPUSCULAR HGB CONC 33.4 g/dL (32.0-36.0); MEAN CORPUSCULAR VOLUME 83 fl (80-97); RED BLOOD COUNT 5.36 10^6/uL (3.72-5.28); RED CELL DISTRIBUTION WIDTH 16.2 % (11.5-14.0)
[2019-09-25 07:45] LABS: ABSOLUTE LYMPHOCYTES# (MANUAL) 1.4 10^3/uL (0.5-4.7); ABSOLUTE MONOCYTES # (MANUAL) 1.2 10^3/uL (0.1-1.4); BASOPHILS % (MANUAL) 0 % (0-2); EOSINOPHILS % (MANUAL) 0 % (0-6); LYMPHOCYTES % (MANUAL) 6 % (13-45); MONOCYTES % (MANUAL) 5 % (3-13); SEGMENTED NEUTROPHILS % (MAN) 89 % (42-78); TOTAL CELLS COUNTED 100
[2019-09-25 07:47] LABS: ANISOCYTOSIS SLIGHT; PLATELET CLUMPS PRESENT; PLATELET COMMENT ADEQUATE; SMUDGE CELLS PRESENT
[2019-09-25 07:48] LABS: PLATELET COUNT 349 10^3/uL (150-450)
[2019-09-25] MEDS ORDERED: POTASSIUM CHLORIDE 20 MEQ PACKET GT ONE ×2 (08:00→11:00)
[2019-09-25] MEDS: IPRATROPIUM/ALBUTEROL 0.5-2.5 MG/3 ML AMPUL NEB SCH ×3 (08:36→20:20)
--- NOTE | 2019-09-25 09:02 | PDOC PROGRESS REPORT ---
Subjective Progress Note for:: 09/25/19 Subjective:: Waking up from OD and sedation. Reason For Visit: AMS,LONG QT,OVERDOSE. Intubated for airway protection. Physical Exam Vital Signs: Temp Pulse Resp BP Pulse Ox 100.9 F H 96 19 116/83 100 09/25/19 07:31 09/25/19 05:56 09/25/19 07:31 09/25/19 07:31 09/25/19 07:31 Intake & Output 09/24/19 09/25/19 09/26/19 06:59 06:59 06:59 Intake Total 50 Output Total 130 Balance -80 Weight 53 kg General appearance: PRESENT: no acute distress Head exam: PRESENT: atraumatic, normocephalic Eye exam: PRESENT: conjunctiva pink, EOMI, PERRLA. ABSENT: scleral icterus Ear exam: PRESENT: normal external ear exam Mouth exam: PRESENT: moist, tongue midline Additional comments: ETT and OG Respiratory exam: PRESENT: clear to auscultation jaqueline, unlabored Cardiovascular exam: PRESENT: RRR. ABSENT: diastolic murmur, rubs, systolic murmur Pulses: PRESENT: normal dorsalis pedis pul, +2 pedal pulses bilateral Vascular exam: PRESENT: normal capillary refill GI/Abdominal exam: PRESENT: normal bowel sounds, soft. ABSENT: distended, guarding, mass, organolmegaly, rebound, tenderness Rectal exam: PRESENT: deferred Gentrourinary exam: PRESENT: indwelling catheter Extremities exam: PRESENT: full ROM Musculoskeletal exam: PRESENT: full ROM Neurological exam: PRESENT: altered, CN II-XII grossly intact Skin exam: PRESENT: dry, intact, warm. ABSENT: cyanosis, rash Results Laboratory Results: 09/25/19 07:05 09/24/19 22:35 09/24/19 09/24/19 09/24/19 00:44 22:35 22:35 WBC 14.5 H RBC 4.82 Hgb 13.3 Hct 39.9 MCV 83 MCH 27.7 MCHC 33.4 RDW 16.0 H Plt Count 432 Seg Neutrophils % 83.9 H Sodium 131.6 L Potassium 3.2 L Chloride 97 L Carbon Dioxide 21 L Anion Gap 14 BUN 29 H Creatinine 2.42 H Est GFR ( Amer) 25 L Glucose 154 H Calcium 8.5 Magnesium Total Bilirubin 0.6 AST 30 Alkaline Phosphatase 126 Total Protein 5.7 L Albumin 3.3 L Serum HCG, Qual Urine Color YELLOW Urine Appearance CLEAR Urine pH 6.0 Ur Specific [place] 1.010 Urine Protein 100 H Urine Glucose (UA) 50 H Urine Ketones NEGATIVE Urine Blood SMALL H Urine Nitrite NEGATIVE Ur Leukocyte Esterase NEGATIVE Urine WBC (Auto) 2 Urine RBC (Auto) 1 09/24/19 09/24/19 09/25/19 22:35 22:35 07:05 WBC 23.0 H RBC 5.36 H Hgb 14.8 Hct 44.2 MCV 83 MCH 27.6 MCHC 33.4 RDW 16.2 H Plt Count 349 Seg Neutrophils % Not Reportable Sodium Potassium Chloride Carbon Dioxide Anion Gap BUN Creatinine Est GFR ( Amer) Glucose Calcium Magnesium 1.8 Total Bilirubin AST Alkaline Phosphatase Total Protein Albumin Serum HCG, Qual NEGATIVE Urine Color Urine Appearance Urine pH Ur Specific [place] Urine Protein Urine Glucose (UA) Urine Ketones Urine Blood Urine Nitrite Ur Leukocyte Esterase Urine WBC (Auto) Urine RBC (Auto) 09/24/19 09/24/19 09/25/19 22:35 22:35 07:05 Creatine Kinase 84 709 H Troponin I 0.807 Impressions: Head CT 09/24/19 23:12 IMPRESSION: No acute findings. Chest X-Ray 09/24/19 23:13 IMPRESSION: Endotracheal tube tip is located within the trachea, approximately 2.8 cm above the larisa. Otherwise, clear lungs. copyright 2010 [employer]- All Rights Reserved Assessment & Plan - Diagnosis (1) Acute respiratory failure Qualifiers: Respiratory failure complication: hypoxia Qualified Code(s): J96.01 - Acute respiratory failure with hypoxia Is this a current diagnosis for this admission?: Yes Plan: Intubated for GCS 7 and airway protection. Waking up. Plan to extubate today. (2) Hypokalemia Is this a current diagnosis for this admission?: Yes Plan: Being replaced with PO supplements. Aim for level of 4.0. Troponin up largely d ue to AFR and perhaps some hypoxia. Doubt ACS or [place]. (3) Long QT interval Is this a current diagnosis for this admission?: Yes Plan: May need bicarb. QT still prolonged but looks improved (4) Acute kidney injury Is this a current diagnosis for this admission?: Yes Plan: Should improve with IVF. No nephrotoxic agents. (5) Drug overdose, multiple drugs Qualifiers: Encounter type: initial encounter Injury intent: undetermined intent Qualified Code(s): T50.914A - Poisoning by multiple unspecified drugs, medicaments and biological substances, undetermined, initial encounter Is this a current diagnosis for this admission?: Yes Plan: Main admitting DX. When awake extubate and assess intention. She has seen and likely needs to see psychiatry - Time Time Spent with patient: 35 or more minutes Total Critical Time (Minutes): 35 Level of Care: ICU Medications reviewed and adjusted accordingly: Yes Anticipated discharge: Home with Homehealth Within: within 48 hours - Inpatient Certification Based on my medical assessment, after consideration of the patient's comorbidities, presenting symptoms, or acuity I expect that the services needed warrant INPATIENT care.: Yes I certify that my determination is in accordance with my understanding of Medicare's requirements for reasonable and necessary INPATIENT services [42 CFR 412.3e].: Yes Medical Necessity: Failure to Improve With Outpatient Therapy, Significant Comorbidiites Make Outpatient Treatment Too Risky, Need Close Monitoring Due to Risk of Patient Decompensation, Need For IV Fluids, Need For Continuous Telemetry Monitoring
[2019-09-25] MEDS ORDERED: HEPARIN SOD (PORCINE) 1,000 UNIT/ML 10 ML VIAL IV PRN (09:08)
[2019-09-25 09:09] LABS: INTERNATIONAL RATION (INR) 1.02; PARTIAL THROMBOPLASTIN TIME 24.3 SEC (23.5-35.8); PROTHROMBIN TIME 13.4 SEC (11.4-15.4)
[2019-09-25] MEDS: INSULIN LISPRO 100 UNIT/ML 3 ML VIAL SUBCUT SCH ×3 (09:09→17:57)
[2019-09-25] MEDS: DOCUSATE SODIUM 100 MG CAPSULE PO SCH ×2 (09:10→18:05)
[2019-09-25 10:36] LABS: APPEARANCE,URINE CLOUDY; BILIRUBIN,URINE NEGATIVE (NEGATIVE); GLUCOSE, URINE NEGATIVE (NEGATIVE); KETONES,URINE TRACE mg/dL (NEGATIVE); LEUKOCYTE ESTERASE,URINE TRACE (NEGATIVE); NITRITE,URINE NEGATIVE (NEGATIVE); PROTEIN,URINE 100 mg/dL (NEGATIVE); URINE SPECIFIC GRAVITY 1.017; UROBILINOGEN,URINE NEGATIVE mg/dL (<2.0)
[2019-09-25 10:37] LABS: COLOR,URINE DARK YELLOW
[2019-09-25] MEDS ORDERED: POTASSIUM CHLORIDE 10 MEQ CAPSULE.ER PO ONE (10:49)
[2019-09-25] MEDS: ENOXAPARIN SODIUM INJ 40 MG/0.4 ML DISP.SYRIN SUBCUT SCH (11:09)
[2019-09-25] MEDS: FAMOTIDINE 20 MG TABLET PO SCH (11:11)
[2019-09-25] MEDS: MAGNESIUM SULFATE/D5W 1 GM/100 ML RTUPB IV SCH ×2 (14:52→15:47)
[2019-09-25] MEDS: BACLOFEN 10 MG TABLET PO SCH ×2 (14:55→21:50)
[2019-09-25] MEDS: ASPIRIN 325 MG TABLET PO SCH (14:55)
[2019-09-25] MEDS: DULOXETINE HCL 30 MG CAPSULE.DR PO SCH (14:55)
[2019-09-25] MEDS: ACETAMINOPHEN 325 MG TABLET PO PRN (14:55)
[2019-09-25] MEDS: TRAMADOL HCL 50 MG TABLET PO SCH ×2 (14:56→21:48)
[2019-09-25] MEDS: METOPROLOL SUCCINATE 25 MG TAB.SR.24H PO SCH ×2 (14:57→21:50)
[2019-09-25 15:39] LABS: POTASSIUM 4.6 mmol/L (3.6-5.0)
[2019-09-25] MEDS: POTASSIUM CHLORIDE 10 MEQ CAPSULE.ER PO SCH ×2 (16:27→21:49)
[2019-09-25] MEDS: SIMVASTATIN 10 MG TABLET PO SCH (21:48)
[2019-09-25] MEDS: LISINOPRIL 10 MG TABLET PO SCH (21:50)
[2019-09-26] MEDS: INSULIN LISPRO 100 UNIT/ML 3 ML VIAL SUBCUT SCH ×4 (00:11→18:04)
[2019-09-26 00:49] LABS: POTASSIUM 4.3 mmol/L (3.6-5.0)
[2019-09-26] MEDS: HYDRALAZINE HCL INJ/PF 20 MG/1 ML SDV IV PRN (03:33)
[2019-09-26 03:42] LABS: ABSOLUTE BASOPHILS # (AUTO) 0.1 10^3/uL (0.0-0.2); ABSOLUTE LYMPHOCYTES (AUTO) 1.3 10^3/uL (0.5-4.7); ABSOLUTE MONOCYTES (AUTO) 0.9 10^3/uL (0.1-1.4); ABSOLUTE NEUT (AUTO) 14.2 10^3/uL (1.7-8.2); BASOPHILS % (AUTO) 0.5 % (0-2); EOSINOPHILS % (AUTO) 0.2 % (0-6); HEMATOCRIT 40.5 % (36.0-47.0); HEMOGLOBIN 13.3 g/dL (12.0-15.5); LYMPHOCYTES % (AUTO) 8.1 % (13-45); MEAN CORPUSCULAR HEMOGLOBIN 27.3 pg (27.0-33.4); MEAN CORPUSCULAR HGB CONC 32.9 g/dL (32.0-36.0); MEAN CORPUSCULAR VOLUME 83 fl (80-97); MONOCYTES % (AUTO) 5.3 % (3-13); PLATELET COUNT 309 10^3/uL (150-450); RED BLOOD COUNT 4.89 10^6/uL (3.72-5.28); RED CELL DISTRIBUTION WIDTH 16.2 % (11.5-14.0); SEGMENTED NEUTROPHILS % (AUTO) 85.9 % (42-78); TOTAL CELLS COUNTED % (AUTO) 100 %; WHITE BLOOD COUNT 16.5 10^3/uL (4.0-10.5)
[2019-09-26 04:02] LABS: ALBUMIN 3.3 g/dL (3.5-5.0); ALKALINE PHOSPHATASE 130 U/L (38-126); ANION GAP 10 (5-19); ASPARTATE AMINO TRANSFERASE 66 U/L (14-36); BILIRUBIN,DIRECT 0.4 mg/dL (0.0-0.4); BILIRUBIN,TOTAL 0.5 mg/dL (0.2-1.3); BLOOD UREA NITROGEN 32 mg/dL (7-20); CALCIUM 8.5 mg/dL (8.4-10.2); CARBON DIOXIDE 20 mmol/L (22-30); CHLORIDE 108 mmol/L (98-107); GLUCOSE 96 mg/dL (75-110); POTASSIUM 3.9 mmol/L (3.6-5.0); TOTAL PROTEIN 6.4 g/dL (6.3-8.2)
[2019-09-26] MEDS: LEVOTHYROXINE SODIUM 0.075 MG TABLET PO SCH (05:41)
[2019-09-26] MEDS: LEVOTHYROXINE SODIUM 0.1 MG TABLET PO SCH (05:41)
[2019-09-26] MEDS: TRAMADOL HCL 50 MG TABLET PO SCH (05:41)
[2019-09-26] MEDS: BACLOFEN 10 MG TABLET PO SCH (05:42)
[2019-09-26] MEDS ORDERED: (PENDING PHARMACY ID) (Levothyroxine Sodium [Synthroid] 175 MCG) PO SCH (06:00)
[2019-09-26] MEDS: POTASSI CL 20 MEQ/50 ML RIDER 20 MEQ/50 ML RTUPB IV SCH (07:25)
[2019-09-26] MEDS: IPRATROPIUM/ALBUTEROL 0.5-2.5 MG/3 ML AMPUL NEB SCH (08:18)
[2019-09-26] MEDS: ACETAMINOPHEN 325 MG TABLET PO PRN (09:12)
[2019-09-26] MEDS: METOPROLOL SUCCINATE 25 MG TAB.SR.24H PO SCH ×2 (09:12→21:11)
[2019-09-26] MEDS: DOCUSATE SODIUM 100 MG CAPSULE PO SCH ×2 (09:13→18:04)
[2019-09-26] MEDS: ENOXAPARIN SODIUM INJ 40 MG/0.4 ML DISP.SYRIN SUBCUT SCH (09:13)
[2019-09-26] MEDS: ASPIRIN 325 MG TABLET PO SCH (09:13)
[2019-09-26] MEDS: AMLODIPINE BESYLATE 10 MG TABLET PO SCH (09:13)
[2019-09-26] MEDS: FAMOTIDINE 20 MG TABLET PO SCH (09:14)
[2019-09-26] MEDS: DULOXETINE HCL 30 MG CAPSULE.DR PO SCH (09:14)
[2019-09-26] MEDS: POTASSIUM CHLORIDE 10 MEQ CAPSULE.ER PO SCH ×2 (09:14→21:11)
[2019-09-26] MEDS ORDERED: (PENDING PHARMACY ID) (Carbamazepine [Carbamazepine Er] 200 MG) PO SCH (10:00)
[2019-09-26] MEDS ORDERED: ASPIRIN 81 MG TABLET, CHEWABLE NG SCH (10:00)
[2019-09-26] MEDS ORDERED: CARBAMAZEPINE 200 MG TAB.SR.12H PO SCH (10:00)
[2019-09-26] MEDS ORDERED: GABAPENTIN 400 MG CAPSULE PO SCH (12:00)
[2019-09-26 12:44] LABS: POTASSIUM 4.2 mmol/L (3.6-5.0)
[2019-09-26] MEDS: METFORMIN HCL 500 MG TABLET PO SCH ×2 (12:54→21:12)
[2019-09-26 16:06] LABS: C DIFFICILE GDH NEGATIVE (NEGATIVE)
[2019-09-26] MEDS: LISINOPRIL 10 MG TABLET PO SCH (21:11)
[2019-09-26] MEDS: SIMVASTATIN 10 MG TABLET PO SCH (21:11)
[2019-09-26] MEDS: AMITRIPTYLINE HCL 25 MG TABLET PO SCH (21:16)
--- NOTE | 2019-09-26 21:36 | EKG REPORT ---
SEVERITY:- ABNORMAL ECG - SINUS RHYTHM BORDERLINE INFERIOR Q WAVES ABNORMAL T, CONSIDER ISCHEMIA, LATERAL LEADS BORDERLINE PROLONGED QT INTERVAL : Confirmed by: Lucian Moran 26-Sep-2019 21:35:16
--- NOTE | 2019-09-26 21:36 | EKG REPORT ---
SEVERITY:- ABNORMAL ECG - SINUS RHYTHM CONSIDER LEFT VENTRICULAR HYPERTROPHY : Confirmed by: Lucian Moran 26-Sep-2019 21:34:54
--- NOTE | 2019-09-26 21:36 | EKG REPORT ---
SEVERITY:- ABNORMAL ECG - SINUS RHYTHM RIGHT ATRIAL ABNORMALITY PROBABLE INFERIOR INFARCT, AGE INDETERMINATE ABNRM R PROG, CONSIDER ASMI OR LEAD PLACEMENT LATERAL LEADS ARE ALSO INVOLVED BORDERLINE PROLONGED QT INTERVAL : Confirmed by: Lucian Moran 26-Sep-2019 21:35:26
--- NOTE | 2019-09-26 21:36 | EKG REPORT ---
SEVERITY:- ABNORMAL ECG - SINUS RHYTHM PROBABLE LEFT ATRIAL ABNORMALITY PROBABLE ANTEROSEPTAL INFARCT, AGE INDETERM LATERAL LEADS ARE ALSO INVOLVED PROLONGED QT INTERVAL : Confirmed by: Lucian Moran 26-Sep-2019 21:35:09
--- NOTE | 2019-09-26 21:36 | EKG REPORT ---
SEVERITY:- ABNORMAL ECG - SINUS RHYTHM BIATRIAL ABNORMALITIES LVH WITH SECONDARY REPOLARIZATION ABNORMALITY PROBABLE INFERIOR INFARCT, OLD CONSIDER ANTERIOR INFARCT PROLONGED QT INTERVAL : Confirmed by: Lucian Moran 26-Sep-2019 21:35:37
[2019-09-26] MEDS ORDERED: QUETIAPINE FUMARATE 100 MG TABLET PO SCH (22:00)
[2019-09-27] MEDS: INSULIN LISPRO 100 UNIT/ML 3 ML VIAL SUBCUT SCH ×4 (00:10→18:52)
[2019-09-27] MEDS: LEVOTHYROXINE SODIUM 0.1 MG TABLET PO SCH (05:31)
[2019-09-27] MEDS: LEVOTHYROXINE SODIUM 0.075 MG TABLET PO SCH (05:31)
[2019-09-27] MEDS: AMLODIPINE BESYLATE 10 MG TABLET PO SCH (08:20)
[2019-09-27] MEDS: FAMOTIDINE 20 MG TABLET PO SCH (09:51)
[2019-09-27] MEDS: ASPIRIN 325 MG TABLET PO SCH (09:52)
[2019-09-27] MEDS: METFORMIN HCL 500 MG TABLET PO SCH (09:52)
[2019-09-27] MEDS: POTASSIUM CHLORIDE 10 MEQ CAPSULE.ER PO SCH ×2 (09:52→21:33)
[2019-09-27] MEDS: DOCUSATE SODIUM 100 MG CAPSULE PO SCH ×2 (09:52→18:52)
[2019-09-27] MEDS: METOPROLOL SUCCINATE 25 MG TAB.SR.24H PO SCH ×2 (09:52→21:33)
[2019-09-27] MEDS: DULOXETINE HCL 30 MG CAPSULE.DR PO SCH (09:52)
[2019-09-27] MEDS: ENOXAPARIN SODIUM INJ 40 MG/0.4 ML DISP.SYRIN SUBCUT SCH (09:53)
[2019-09-27] MEDS ORDERED: DIPHENOXYLATE HCL/ATROP SULF 2.5-0.025 MG TABLET PO PRN (11:35)
--- NOTE | 2019-09-27 11:46 | PDOC PROGRESS REPORT ---
Subjective Progress Note for:: 09/27/19 Subjective:: More awake with no complaints. Reason For Visit: AMS,LONG QT,OVERDOSE Physical Exam Vital Signs: Temp Pulse Resp BP Pulse Ox 98.6 F 76 18 164/105 H 98 09/27/19 10:00 09/26/19 08:20 09/27/19 10:00 09/27/19 09:42 09/27/19 09:42 Intake & Output 09/26/19 09/27/19 09/28/19 06:59 06:59 06:59 Intake Total 1572 2480 Output Total 1315 1720 Balance 257 760 Weight 54.6 kg 53.5 kg General appearance: PRESENT: no acute distress, thin, well-developed, well- nourished Head exam: PRESENT: atraumatic, normocephalic Eye exam: PRESENT: conjunctiva pink, EOMI, PERRLA. ABSENT: scleral icterus Ear exam: PRESENT: normal external ear exam Mouth exam: PRESENT: moist, tongue midline Respiratory exam: PRESENT: clear to auscultation jaqueline, unlabored Cardiovascular exam: PRESENT: RRR. ABSENT: diastolic murmur, rubs, systolic murmur Vascular exam: PRESENT: normal capillary refill GI/Abdominal exam: PRESENT: normal bowel sounds, soft. ABSENT: distended, guarding, mass, organolmegaly, rebound, tenderness Rectal exam: PRESENT: deferred Gentrourinary exam: PRESENT: indwelling catheter Extremities exam: PRESENT: full ROM Musculoskeletal exam: PRESENT: normal inspection Neurological exam: PRESENT: alert, altered, awake, oriented to person, oriented to place, oriented to time, oriented to situation, CN II-XII grossly intact. ABSENT: motor sensory deficit Skin exam: PRESENT: dry, intact, warm. ABSENT: cyanosis, rash Results Laboratory Results: 09/26/19 03:29 09/26/19 12:05 09/26/19 12:05 Potassium 4.2 Magnesium 2.0 09/24/19 09/24/19 09/25/19 22:35 22:35 07:05 Creatine Kinase 84 709 H Troponin I 0.807 09/25/19 09/25/19 09/25/19 10:33 10:33 18:44 Creatine Kinase 896 H Troponin I 10.900 7.170 09/26/19 03:29 Creatine Kinase Troponin I 3.480 Impressions: Head CT 09/24/19 23:12 IMPRESSION: No acute findings. Chest X-Ray 09/24/19 23:13 IMPRESSION: Endotracheal tube tip is located within the trachea, approximately 2.8 cm above the larisa. Otherwise, clear lungs. copyright 2010 [employer]- All Rights Reserved Assessment & Plan - Diagnosis (1) Acute kidney injury Is this a current diagnosis for this admission?: Yes Plan: Still has Cr of 2. Not at baseline. Continue IVF as she is not eating much (2) Drug overdose, multiple drugs Qualifiers: Encounter type: initial encounter Injury intent: undetermined intent Qualified Code(s): T50.914A - Poisoning by multiple unspecified drugs, medicaments and biological substances, undetermined, initial encounter Is this a current diagnosis for this admission?: Yes Plan: Mental status improving. Does not recall events. Not suicidal. (3) Elevated troponin Is this a current diagnosis for this admission?: Yes Plan: Coming down, no symptoms. EKG shows prolonged QT less than on admission. (4) Urinary retention Is this a current diagnosis for this admission?: Yes Plan: Side effect of psych meds with anticholinergic effect. Immobility. PT ordered. (5) Diarrhea Qualifiers: Diarrhea type: functional diarrhea Qualified Code(s): K59.1 - Functional diarrhea Is this a current diagnosis for this admission?: Yes Plan: Cdif toxins negative. Aleshia ordered routine cultures obtained. She says she has had for 2 days. - Time Time Spent with patient: 25-34 minutes Level of Care: MEDICAL Medications reviewed and adjusted accordingly: Yes Anticipated discharge: SNF Within: within 72 hours - Inpatient Certification Based on my medical assessment, after consideration of the patient's comorbidities, presenting symptoms, or acuity I expect that the services needed warrant INPATIENT care.: Yes I certify that my determination is in accordance with my understanding of Medicare's requirements for reasonable and necessary INPATIENT services [42 CFR 412.3e].: Yes Medical Necessity: Failure to Improve With Outpatient Therapy, Significant Comorbidiites Make Outpatient Treatment Too Risky, Need For IV Fluids, Need For Continuous Telemetry Monitoring
--- NOTE | 2019-09-27 12:43 | XCELERA REPORT ---
[address] [address] Transthoracic Echocardiogram Report Name: SHELLEY RODRÍGUEZ Age: 54 yrs Gender: Female : 1965 Patient Status: Inpatient Patient Location: ICU^610^A Study Date: 09/25/2019 01:41 PM Height: 63 in Weight: 116 lb BSA: 1.5 m2 Procedure: A two-dimensional transthoracic echocardiogram with color flow and Doppler was performed. The study was technically difficult with many images being suboptimal in quality. Reason For Study: Probable hypoxia but troponin 10. ? wall motion ab History: Probable hypoxia but troponin 10. ? wall motion ab. Ordering Physician: ETHEL CUEVAS Performed By: Yue Grant Interpretation Summary The left ventricle is normal in size. There is mild concentric left ventricular hypertrophy. LV EF is Greater than 65% Left ventricular systolic function is normal. Doppler measurements suggest impaired left ventricular relaxation, which is associated with grade I/IV or mild diastolic dysfunction The left ventricular wall motion is normal. There is no thrombus. The right ventricle is normal in size and function. The right atrium is normal. The left atrial size is normal. There is no evidence of mitral valve prolapse. There is no vegetation seen on the mitral valve. There is no mitral valve stenosis. There is a trace amount of mitral regurgitation There is no aortic valvular vegetation. There is no aortic valve stenosis There is no LVOT obstruction. No aortic regurgitation is present. There is no tricuspid stenosis. There is a trace amount of tricuspid regurgitation Tricuspid regurgitation jet envelope not well defined to measure RV systolic pressure accurately. There is no pulmonic valvular stenosis. There is no pulmonic valvular regurgitation. The aortic root is normal size. The inferior vena cava appeared normal and decreased > 50% with respiration (RAP 5-10 mmHg) There is no pericardial effusion. MMode/2D Measurements & Calculations RVDd: 2.1 cm LVIDd: 4.4 cm FS: 37.2 % Ao root diam: 2.2 cm IVSd: 1.2 cm LVIDs: 2.7 cm EDV(Teich): 86.1 ml Ao root area: 3.7 cm2 LVPWd: 1.1 cm ESV(Teich): 28.0 ml LA dimension: 3.2 cm EF(Teich): 67.4 % Doppler Measurements & Calculations MV E max lemuel: MV P1/2t max lemuel: Ao V2 max: LV V1 max P.0 cm/sec 76.0 cm/sec 207.5 cm/sec 6.6 mmHg MV A max lemuel: MV P1/2t: 72.1 msec Ao max PG: LV V1 max: 111.6 cm/sec MVA(P1/2t): 3.1 cm2 17.2 mmHg 128.3 cm/sec MV E/A: 0.67 MV dec slope: 308.8 cm/sec2 MV dec time: 0.24 sec PA V2 max: MV P1/2t-pr_phl: 173.1 cm/sec 72.1 msec PA max P.0 mmHg Left Ventricle The left ventricle is normal in size. There is mild concentric left ventricular hypertrophy. LV EF is Greater than 65%. Left ventricular systolic function is normal. Doppler measurements suggest impaired left ventricular relaxation, which is associated with grade I/IV or mild diastolic dysfunction. The left ventricular wall motion is normal. There is no thrombus. No ASD ,VSD , or PFO seen. Right Ventricle The right ventricle is normal in size and function. Atria The right atrium is normal. The left atrial size is normal. Mitral Valve There is no evidence of mitral valve prolapse. There is no vegetation seen on the mitral valve. There is no mitral valve stenosis. There is a trace amount of mitral regurgitation. Aortic Valve There is no aortic valvular vegetation. There is no aortic valve stenosis. There is no LVOT obstruction. No aortic regurgitation is present. Tricuspid Valve There is no tricuspid stenosis. There is a trace amount of tricuspid regurgitation. Tricuspid regurgitation jet envelope not well defined to measure RV systolic pressure accurately. Pulmonic Valve There is no pulmonic valvular stenosis. There is no pulmonic valvular regurgitation. Great Vessels The aortic root is normal size. The inferior vena cava appeared normal and decreased > 50% with respiration (RAP 5-10 mmHg). Effusions There is no pericardial effusion. : ETHEL CUEVAS Lakshmi
[2019-09-27] MEDS: HYDRALAZINE HCL INJ/PF 20 MG/1 ML SDV IV PRN (16:35)
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
[2019-09-27] MEDS: AMITRIPTYLINE HCL 25 MG TABLET PO SCH (21:33)
[2019-09-27] MEDS: SIMVASTATIN 10 MG TABLET PO SCH (21:33)
[2019-09-27] MEDS: LISINOPRIL 10 MG TABLET PO SCH (21:33)
[2019-09-27] MEDS ORDERED: QUETIAPINE FUMARATE 100 MG TABLET PO SCH (22:00)
--- NOTE | 2019-09-27 23:19 | EKG REPORT ---
SEVERITY:- ABNORMAL ECG - SINUS RHYTHM ABNRM R PROG, CONSIDER ASMI OR LEAD PLACEMENT BORDERLINE PROLONGED QT INTERVAL : Confirmed by: Lucian Moran 27-Sep-2019 23:17:37
[2019-09-28] MEDS: INSULIN LISPRO 100 UNIT/ML 3 ML VIAL SUBCUT SCH ×4 (00:09→18:11)
[2019-09-28 04:52] LABS: HEMATOCRIT 39.3 % (36.0-47.0); MEAN CORPUSCULAR HEMOGLOBIN 27.6 pg (27.0-33.4); MEAN CORPUSCULAR VOLUME 84 fl (80-97); PLATELET COUNT 385 10^3/uL (150-450); RED BLOOD COUNT 4.71 10^6/uL (3.72-5.28); RED CELL DISTRIBUTION WIDTH 16.4 % (11.5-14.0); WHITE BLOOD COUNT 11.6 10^3/uL (4.0-10.5)
--- NOTE | 2019-09-28 07:06 | EKG REPORT ---
SEVERITY:- ABNORMAL ECG - SINUS RHYTHM ANTERIOR INFARCT, AGE INDETERMINATE BORDERLINE ST ELEVATION, INFERIOR LEADS BORDERLINE PROLONGED QT INTERVAL : Confirmed by: Lucian Moran 28-Sep-2019 07:06:05
[2019-09-28] MEDS: LEVOTHYROXINE SODIUM 0.075 MG TABLET PO SCH (08:19)
[2019-09-28] MEDS: LEVOTHYROXINE SODIUM 0.1 MG TABLET PO SCH (08:19)
[2019-09-28] MEDS: DULOXETINE HCL 30 MG CAPSULE.DR PO SCH (08:19)
[2019-09-28] MEDS: DOCUSATE SODIUM 100 MG CAPSULE PO SCH ×2 (09:08→17:21)
[2019-09-28] MEDS: POTASSIUM CHLORIDE 10 MEQ CAPSULE.ER PO SCH (09:12)
[2019-09-28] MEDS: METOPROLOL SUCCINATE 25 MG TAB.SR.24H PO SCH (09:12)
[2019-09-28] MEDS: FAMOTIDINE 20 MG TABLET PO SCH (09:13)
[2019-09-28] MEDS: AMLODIPINE BESYLATE 10 MG TABLET PO SCH (09:13)
[2019-09-28] MEDS: ENOXAPARIN SODIUM INJ 40 MG/0.4 ML DISP.SYRIN SUBCUT SCH (09:14)
[2019-09-28 09:15] LABS: ANION GAP 11 (5-19); BLOOD UREA NITROGEN 17 mg/dL (7-20); CALCIUM 9.4 mg/dL (8.4-10.2); CARBON DIOXIDE 19 mmol/L (22-30); CHLORIDE 106 mmol/L (98-107); GLUCOSE 120 mg/dL (75-110); POTASSIUM 5.3 mmol/L (3.6-5.0)
[2019-09-28] MEDS: LACTOBACILLUS ACIDOPHILUS 250 MG TAB PO SCH ×2 (09:35→17:20)
[2019-09-28 10:48] LABS: APPEARANCE,URINE CLEAR; BILIRUBIN,URINE NEGATIVE (NEGATIVE); COLOR,URINE YELLOW; GLUCOSE, URINE 50 mg/dL (NEGATIVE); KETONES,URINE 20 mg/dL (NEGATIVE); PROTEIN,URINE NEGATIVE (NEGATIVE); URINE SPECIFIC GRAVITY 1.012; UROBILINOGEN,URINE NEGATIVE mg/dL (<2.0)
[2019-09-28] MEDS: ACETAMINOPHEN 325 MG TABLET PO PRN (13:13)
--- NOTE | 2019-09-28 13:15 | RADIOLOGY REPORT (SQ) ---
EXAM DESCRIPTION: MRA HEAD WITHOUT COMPLETED DATE/TIME: 09/28/2019 1:02 pm REASON FOR STUDY: AMS following Overdose; ? Anoxic injury COMPARISON: 06/10/2019 TECHNIQUE: Axial 3-D [id number] acquisition imaging performed through the brain in the area of t he [place]. Images reformatted using 3-D MIPS. LIMITATIONS: None. FINDINGS: SOURCE IMAGES: No unexpected findings on source images. No large masses. 3-D MIP: No aneurysm. No occlusions. No significant stenosis. OTHER: No other significant finding. IMPRESSION: NORMAL MRA OF THE [place]. TECHNICAL DOCUMENTATION: JOB ID: [id number] [employer]- All Rights Reserved Reading location - IP/workstation name: [email or web address]
--- NOTE | 2019-09-28 14:17 | PDOC PROGRESS REPORT ---
Subjective Progress Note for:: 09/28/19 Subjective:: The patient is a 54-year-old female with a past medical history of hypertension, hypothyroidism, and recurrent drug overdoses who was admitted 09/24/2019 for Seroquel overdose resulting in altered mental status and acute respiratory failure requiring intubation. Patient was extubated 09/26/2019. She is downgraded to the telemetry floor 09/28/2019. Patient was seen on morning rounds. She was found sitting up in bed, comfortably, on room air. She is noted to be alert and oriented to self only. She did hesitate and stutter multiple times before self-correcting to say her name. She then tells me that the year is 818, states a nonsensical word for location, and tells me that she came here to look for her friend. She is unable to answer any other questions appropriately. She tells me that she enjoyed her breakfast and ate everything, although, her untouched breakfast tray is sitting on the bedside table in front of her. ROS is limited secondary to mental exam status, however, she does appear to be comfortable and not noted to be in any acute distress. No concerns per nursing. Reason For Visit: AMS,LONG QT,OVERDOSE Physical Exam Vital Signs: Temp Pulse Resp BP Pulse Ox 97.8 F 74 17 155/78 H 97 09/28/19 00:00 09/28/19 00:00 09/28/19 00:00 09/28/19 00:00 09/28/19 09:19 Intake & Output 09/27/19 09/28/19 09/29/19 06:59 06:59 06:59 Intake Total 2480 250 Output Total 1720 1625 Balance 760 -1375 Weight 53.5 kg 53.5 kg General appearance: PRESENT: no acute distress, disheveled, thin, well- developed, well-nourished Head exam: PRESENT: atraumatic, normocephalic Eye exam: PRESENT: conjunctiva pink, EOMI, PERRLA. ABSENT: scleral icterus Ear exam: PRESENT: normal external ear exam Mouth exam: PRESENT: moist, tongue midline Teeth exam: PRESENT: poor dentation Neck exam: ABSENT: carotid bruit, JVD, lymphadenopathy, thyromegaly Respiratory exam: PRESENT: clear to auscultation jaqueline, symmetrical, unlabored. ABSENT: rales, rhonchi, wheezes Cardiovascular exam: PRESENT: RRR. ABSENT: diastolic murmur, rubs, systolic murmur Pulses: PRESENT: normal dorsalis pedis pul Vascular exam: PRESENT: normal capillary refill GI/Abdominal exam: PRESENT: normal bowel sounds, soft. ABSENT: distended, guarding, mass, organolmegaly, rebound, tenderness Rectal exam: PRESENT: deferred, other - fecal managment tube w/ liquid stool Gentrourinary exam: PRESENT: indwelling catheter Extremities exam: PRESENT: full ROM. ABSENT: calf tenderness, clubbing, pedal edema Neurological exam: PRESENT: alert, awake, oriented to person, CN II-XII grossly intact, other - Patient initially was unable to state name, but did self corre ct. Year is 08[birth year] and location was unintelligable. She states she ate her entire breakfast though her untouched tray was in front of her.. ABSENT: oriented to place, oriented to time, oriented to situation, motor sensory deficit Psychiatric exam: PRESENT: appropriate affect, normal mood. ABSENT: homicidal ideation, suicidal ideation Skin exam: PRESENT: dry, intact, warm. ABSENT: cyanosis, rash Results Laboratory Results: 09/28/19 04:00 09/28/19 04:00 09/28/19 09/28/19 09/28/19 04:00 04:00 04:00 WBC 11.6 H RBC 4.71 Hgb 13.0 Hct 39.3 MCV 84 MCH 27.6 MCHC 33.0 RDW 16.4 H Plt Count 385 Sodium 135.9 L Potassium 5.3 H Chloride 106 Carbon Dioxide 19 L Anion Gap 11 BUN 17 Creatinine 1.13 Est GFR ( Amer) > 60 Glucose 120 H Calcium 9.4 Magnesium 1.8 Urine Color Urine Appearance Urine pH Ur Specific [place] Urine Protein Urine Glucose (UA) Urine Ketones Urine Blood Urine Nitrite Ur Leukocyte Esterase Urine WBC (Auto) Urine RBC (Auto) 09/28/19 09:55 WBC RBC Hgb Hct MCV MCH MCHC RDW Plt Count Sodium Potassium Chloride Carbon Dioxide Anion Gap BUN Creatinine Est GFR ( Amer) Glucose Calcium Magnesium Urine Color YELLOW Urine Appearance CLEAR Urine pH 5.0 Ur Specific [place] 1.012 Urine Protein NEGATIVE Urine Glucose (UA) 50 H Urine Ketones 20 H Urine Blood LARGE H Urine Nitrite Cancelled Ur Leukocyte Esterase Cancelled Urine WBC (Auto) Cancelled Urine RBC (Auto) 48 09/24/19 09/24/19 09/25/19 22:35 22:35 07:05 Creatine Kinase 84 709 H Troponin I 0.807 09/25/19 09/25/19 09/25/19 10:33 10:33 18:44 Creatine Kinase 896 H Troponin I 10.900 7.170 09/26/19 03:29 Creatine Kinase Troponin I 3.480 Impressions: Head CT 09/24/19 23:12 IMPRESSION: No acute findings. Chest X-Ray 09/24/19 23:13 IMPRESSION: Endotracheal tube tip is located within the trachea, approximately 2.8 cm above the larisa. Otherwise, clear lungs. copyright 2010 [employer]- All Rights Reserved Brain MRI with MRA 09/28/19 00:00 IMPRESSION: NORMAL MRA OF THE [place]. Assessment and Plan - Diagnosis (1) Drug overdose, multiple drugs Qualifiers: Encounter type: initial encounter Injury intent: undetermined intent Q ualified Code(s): T50.914A - Poisoning by multiple unspecified drugs, medicaments and biological substances, undetermined, initial encounter Is this a current diagnosis for this admission?: Yes Plan: Admitted 09/25/2019 for altered mental status and acute respiratory failure with hypoxia requiring intubation. Per roommate, the patient likely overdosed on approximately 42 Seroquel pills (unknown dose). Poison control following. EKG this morning shows sinus rhythm. QTc interval improved to 499. Mental health services are consulted. Avoid QTC prolonging agents. Continue to monitor on telemetry. Supportive care. (2) Acute encephalopathy Is this a current diagnosis for this admission?: Yes Plan: Secondary to polypharmacy overdose. Now with UTI. Patient oriented to self only. Poor situational awareness. Head MRI/MRA to evaluate for possible anoxic brain injury pending. Treatment of UTI as below. Fall precautions. Supportive care (3) Diarrhea Qualifiers: Diarrhea type: functional diarrhea Qualified Code(s): K59.1 - Functional diarrhea Is this a current diagnosis for this admission?: Yes Plan: Stool culture pending. Start lactobacillus twice daily. Continue Lomotil as needed. (4) Elevated troponin Is this a current diagnosis for this admission?: Yes Plan: Patient is chest pain-free. Troponin admission 0.807; peaked at 10.9, now trending down. EKG reveals Prolonged QTC, though decreased from time of admission. Echocardiogram reveals LVEF greater than 65% with mild diastolic dysfunction, normal ventricular wall motion Continue daily aspirin and statin therapy. Continue monitor on cardiac telemetry. (5) Acute kidney injury Is this a current diagnosis for this admission?: Yes Plan: Resolved. And 1.13/BUN 17; down from 2.42/29 Likely secondary to hypotension Continue IV fluids until taking adequate p.o. fluids. (6) Acute respiratory failure with hypoxemia Is this a current diagnosis for this admission?: Yes Plan: Resolved. Secondary to substance overdose. Patient was intubated on 09/24/2019; extubated 09/26/2019. Continue supplemental oxygen as needed to maintain saturations. Continue scheduled and as needed nebulizer treatments. (7) UTI (urinary tract infection) Qualifiers: Urinary tract infection type: catheter-associated UTI Indwelling urinary catheter type: indwelling urethral catheter Encounter type: initial encounter Qualified Code(s): T83.511A - Infection and inflammatory reaction due to indwelling urethral catheter, initial encounter; N39.0 - Urinary tract infection, site not specified Is this a current diagnosis for this admission?: Yes Plan: Urinalysis positive for UTI. Urine culture pending. Empirically started on IV Rocephin. (8) Hyperkalemia Is this a current diagnosis for this admission?: Yes Plan: K 5.3 Continue IVF. Start Veltassa - Time Time Spent with patient: 25-34 minutes Medications reviewed and adjusted accordingly: Yes Anticipated discharge: SNF
--- NOTE | 2019-09-28 14:25 | RADIOLOGY REPORT (SQ) ---
EXAM DESCRIPTION: MRI HEAD WITHOUT COMPLETED DATE/TIME: 09/28/2019 1:02 pm REASON FOR STUDY: AMS following Overdose; ? anoxic injury COMPARISON: CT dated 09/25/2019. TECHNIQUE: Multiplanar imaging includes non-contrasted T1, T2, FLAIR, and diffusion with ADC map seq uences. Images stored on PACS. LIMITATIONS: None. FINDINGS: ANATOMY: No anomalies. Normal vascular flow voids. Pituitary fossa normal. CSF SPACES: Normal in size and contour. No hemorrhage. CEREBRUM: Sulci and gyri normal in size and contour. Normal white matter signal on FLAIR imaging. Th ere is increased FLAIR and T2 signal in the cortex of the right and left occipital lobe and focal are a in the right thalamus. Possible similar finding in the right cerebellar hemisphere No evidence of hemorrhage, mass, or extraaxial fluid collection. POSTERIOR FOSSA: No signal alteration. No hemorrhage. No edema, masses or mass effect. Internal nba tory canals, cerebello-pontine angles, mastoids normal. DIFFUSION IMAGING: Restricted diffusion along the cortical surfaces of the right and left occipital l obe, subcortical white matter of the posterior left parietal lobe, and in the right thalamus. Questi onable restricted diffusion in the right cerebellar hemisphere. ORBITS: No masses. Globes normal. PARANASAL SINUSES: No fluid levels. Mucosa normal. OTHER: No other significant finding. IMPRESSION: SEVERAL AREAS OF RESTRICTED DIFFUSION CONSISTENT WITH RECENT INFARCT. AREAS OF INVOLVEM ENT INCLUDE THE CORTICAL SURFACES OF THE RIGHT AND LEFT OCCIPITAL LOBE, SUBCORTICAL WHITE MATTER OF T HE POSTERIOR LEFT PARIETAL LOBE, AND IN THE RIGHT THALAMUS. POSSIBLE SIMILAR FINDING IN THE RIGHT CE REBELLAR HEMISPHERE. EVIDENCE OF ACUTE STROKE: YES. RIGHT AND LEFT POSTERIOR CIRCULATION AND RIGHT AND LEFT MIDDLE CEREB RAL ARTERY. COMMENT: Pertinent findings on the imaging study reported as a CRITICAL RESULT to [address] [place] [address] 4:13 on 09/28/2019. Category of Critical Result: Cerebral infarct. TECHNICAL DOCUMENTATION: JOB ID: [id number] [employer]- All Rights Reserved Reading location - IP/workstation name: [email or web address]
[2019-09-28] MEDS: NORMAL SALINE 1000 ML 1,000 ML IV PRN (15:06)
[2019-09-28] MEDS: CEFTRIAXONE 1 GM/D5W RTU 1 GM/50 ML RTUPB IV SCH (15:13)
[2019-09-28] MEDS ORDERED: ASPIRIN 81 MG TABLET, ENT COATED PO ONE (15:30)
[2019-09-28] MEDS: HYDRALAZINE HCL INJ/PF 20 MG/1 ML SDV IV PRN (15:34)
[2019-09-28] MEDS: PATIROMER 8.4 GM SUSP PACKET PO SCH (17:20)
[2019-09-29] MEDS: AMITRIPTYLINE HCL 25 MG TABLET PO SCH ×2 (00:22→21:30)
[2019-09-29] MEDS: METOPROLOL SUCCINATE 25 MG TAB.SR.24H PO SCH ×3 (00:23→21:29)
[2019-09-29] MEDS: POTASSIUM CHLORIDE 10 MEQ CAPSULE.ER PO SCH (00:23)
[2019-09-29] MEDS: ATORVASTATIN CALCIUM 80 MG TABLET PO SCH ×2 (00:23→21:30)
[2019-09-29] MEDS: LISINOPRIL 10 MG TABLET PO SCH ×2 (00:23→21:30)
[2019-09-29] MEDS: INSULIN LISPRO 100 UNIT/ML 3 ML VIAL SUBCUT SCH ×5 (00:24→22:15)
--- NOTE | 2019-09-29 01:19 | RADIOLOGY REPORT (SQ) ---
EXAM DESCRIPTION: [facility]: US CAROTID DOPPLER BILATERAL CLINICAL HISTORY: 54 years Female; Acute CVA TECHNIQUE: Grayscale and Doppler (color and pulse) ultrasound of bilateral carotid arteries and the vertebral arteries was performed. Stenosis assessment based on Carotid Artery Stenosis: More[place]-Scale and Doppler US DiagnosisSociety of Radiologists in Ultrasound Consensus Conference; Radiology, Sep 2003, Vol. 229:340-346 COMPARISON: CTA 05/29/2019 FINDINGS: Exam was technically difficult due to patient's mental status. All velocities in cm/sec. Right carotid: Morphology: Mixed echogenic plaque at the bifurcation and proximal ICA ICA velocities: Proximal 81/24, distal 258/74 (Normal < 124/40) CCA PSV: Proximal 88, distal 86 ICA/CCA PSV ratio: 3.0 (Normal < 2.0) ECA: Patent, PSV 154 Left carotid: Morphology: Mixed echogenic plaque at the bifurcation and proximal ECA and ICA ICA velocities: Proximal 89/30, distal 103/28 (Normal < 124/40) CCA PSV: Proximal 88, distal 72 ICA/CCA PSV ratio: 1.4 (Normal < 2.0) ECA: Patent, PSV 240 Right vertebral: Could not be visualized Left vertebral: Antegrade, PSV 59 IMPRESSION: 1. Atherosclerosis 2. Greater than 70% stenosis of the right internal carotid artery, as seen on 05/29/2019 3. No significant stenosis of the left internal carotid artery 4. At least 50-69% stenosis of the left external carotid artery 5. Right vertebral could not be identified. Normal antegrade flow in the left vertebral artery.
[2019-09-29] MEDS ORDERED: METOPROLOL TARTRATE PF/INJ 5 MG/5 ML SDV IV PRN (01:28)
[2019-09-29] MEDS ORDERED: ENALAPRILAT DIHYDRATE INJ/PF 1.25 MG/1 ML SDV IV ONE (01:30)
[2019-09-29] MEDS: LEVOTHYROXINE SODIUM 0.075 MG TABLET PO SCH (05:14)
[2019-09-29] MEDS: NORMAL SALINE 1000 ML 1,000 ML IV PRN (06:08)
[2019-09-29 08:17] LABS: HEMATOCRIT 37.6 % (36.0-47.0); HEMOGLOBIN 12.5 g/dL (12.0-15.5); MEAN CORPUSCULAR HEMOGLOBIN 27.5 pg (27.0-33.4); MEAN CORPUSCULAR HGB CONC 33.3 g/dL (32.0-36.0); MEAN CORPUSCULAR VOLUME 83 fl (80-97); PLATELET COUNT 464 10^3/uL (150-450); RED BLOOD COUNT 4.56 10^6/uL (3.72-5.28); RED CELL DISTRIBUTION WIDTH 16.3 % (11.5-14.0); WHITE BLOOD COUNT 8.6 10^3/uL (4.0-10.5)
[2019-09-29] MEDS: LEVOTHYROXINE SODIUM 0.1 MG TABLET PO SCH (08:34)
[2019-09-29] MEDS: DULOXETINE HCL 30 MG CAPSULE.DR PO SCH (08:34)
[2019-09-29 08:38] LABS: ANION GAP 12 (5-19); BLOOD UREA NITROGEN 12 mg/dL (7-20); CALCIUM 8.9 mg/dL (8.4-10.2); CARBON DIOXIDE 19 mmol/L (22-30); CHLORIDE 102 mmol/L (98-107); CHOLESTEROL 242.46 mg/dL (0-200); GLUCOSE 120 mg/dL (75-110); POTASSIUM 4.8 mmol/L (3.6-5.0); TRIGLYCERIDES 297 mg/dL (<150)
--- NOTE | 2019-09-29 08:46 | PDOC PROGRESS REPORT ---
Subjective Progress Note for:: 09/29/19 Subjective:: 09/29/2019-no complaints this a.m. Reason For Visit: AMS,LONG QT,OVERDOSE Physical Exam Vital Signs: Temp Pulse Resp BP Pulse Ox 97.5 F 83 16 162/85 H 95 09/29/19 08:16 09/29/19 08:16 09/29/19 08:16 09/29/19 08:16 09/29/19 08:16 Intake & Output 09/28/19 09/29/19 09/30/19 06:59 06:59 06:59 Intake Total 250 1050 Output Total 1625 880 Balance -1375 170 Weight 55.1 kg General appearance: PRESENT: no acute distress, well-developed, well-nourished Neck exam: ABSENT: carotid bruit, JVD, lymphadenopathy, thyromegaly Respiratory exam: PRESENT: clear to auscultation jaqueline. ABSENT: rales, rhonchi, wheezes Cardiovascular exam: PRESENT: RRR. ABSENT: diastolic murmur, rubs, systolic murmur Pulses: PRESENT: +1 pedal pulses bilateral Vascular exam: PRESENT: normal capillary refill GI/Abdominal exam: PRESENT: normal bowel sounds, soft. ABSENT: distended, guarding, mass, organolmegaly, rebound, tenderness Extremities exam: PRESENT: full ROM. ABSENT: calf tenderness, clubbing, pedal edema Neurological exam: PRESENT: alert, awake, oriented to person, oriented to place, oriented to time Psychiatric exam: PRESENT: appropriate affect, normal mood. ABSENT: homicidal ideation, suicidal ideation Skin exam: PRESENT: dry, intact, warm, other - Multiple bruises. ABSENT: cyanosis, rash Results Laboratory Results: 09/29/19 07:40 09/28/19 09/28/19 09/29/19 04:00 09:55 07:40 WBC 8.6 RBC 4.56 Hgb 12.5 Hct 37.6 MCV 83 MCH 27.5 MCHC 33.3 RDW 16.3 H Plt Count 464 H Sodium 135.9 L Potassium 5.3 H Chloride 106 Carbon Dioxide 19 L Anion Gap 11 BUN 17 Creatinine 1.13 Est GFR ( Amer) > 60 Glucose 120 H Calcium 9.4 Urine Color YELLOW Urine Appearance CLEAR Urine pH 5.0 Ur Specific [place] 1.012 Urine Protein NEGATIVE Urine Glucose (UA) 50 H Urine Ketones 20 H Urine Blood LARGE H Urine Nitrite Cancelled Ur Leukocyte Esterase Cancelled Urine WBC (Auto) Cancelled Urine RBC (Auto) 48 09/24/19 09/24/19 09/25/19 22:35 22:35 07:05 Creatine Kinase 84 709 H Troponin I 0.807 09/25/19 09/25/19 09/25/19 10:33 10:33 18:44 Creatine Kinase 896 H Troponin I 10.900 7.170 09/26/19 09/28/19 09/29/19 03:29 16:21 00:43 Creatine Kinase Troponin I 3.480 0.675 0.676 Impressions: Head CT 09/24/19 23:12 IMPRESSION: No acute findings. Chest X-Ray 09/24/19 23:13 IMPRESSION: Endotracheal tube tip is located within the trachea, approximately 2.8 cm above the larisa. Otherwise, clear lungs. copyright 2010 [employer]- All Rights Reserved Brain MRI with MRA 09/28/19 00:00 IMPRESSION: NORMAL MRA OF THE [place]. Carotid Doppler Study 09/28/19 00:00 IMPRESSION: 1. Atherosclerosis 2. Greater than 70% stenosis of the right internal carotid artery, as seen on 05/29/2019 3. No significant stenosis of the left internal carotid artery 4. At least 50-69% stenosis of the left external carotid artery 5. Right vertebral could not be identified. Normal antegrade flow in the left vertebral artery. Head MRI 09/28/19 00:00 IMPRESSION: SEVERAL AREAS OF RESTRICTED DIFFUSION CONSISTENT WITH RECENT INFARCT. AREAS OF INVOLVEMENT INCLUDE THE CORTICAL SURFACES OF THE RIGHT AND LEFT OCCIPITAL LOBE, SUBCORTICAL WHITE MATTER OF THE POSTERIOR LEFT PARIETAL LOBE, AND IN THE RIGHT THALAMUS. POSSIBLE SIMILAR FINDING IN THE RIGHT CEREBELLAR HEMISPHERE. EVIDENCE OF ACUTE STROKE: YES. RIGHT AND LEFT POSTERIOR CIRCULATION AND RIGHT AND LEFT MIDDLE CEREBRAL ARTERY. Assessment and Plan - Diagnosis (1) Drug overdose, multiple drugs Qualifiers: Encounter type: initial encounter Injury intent: undetermined intent Qualified Code(s): T50.914A - Poisoning by multiple unspecified drugs, medicaments and biological substances, undetermined, initial encounter Is this a current diagnosis for this admission?: Yes Plan: Admitted 09/25/2019 for altered mental status and acute respiratory failure with hypoxia requiring intubation. Per roommate, the patient likely overdosed on approximately 42 Seroquel pills (unknown dose). Poison control following. EKG this morning shows sinus rhythm. QTc interval improved to 499. Mental health services are consulted. Avoid QTC prolonging agents. Continue to monitor on telemetry. Supportive care. 09/29/2019-stable at this time. Patient awake alert. Continue supportive care. Await mental health consultation (2) Acute encephalopathy Is this a current diagnosis for this admission?: Yes Plan: 09/29/2019-stable (3) Diarrhea Qualifiers: Diarrhea type: functional diarrhea Qualified Code(s): K59.1 - Functional diarrhea Is this a current diagnosis for this admission?: Yes Plan: Stool culture pending. Start lactobacillus twice daily. Continue Lomotil as needed. 09/29/2019-continue Lomotil as needed (4) Elevated troponin Is this a current diagnosis for this admission?: Yes Plan: Patient is chest pain-free. Troponin admission 0.807; peaked at 10.9, now trending down. EKG reveals Prolonged QTC, though decreased from time of admission. Echocardiogram reveals LVEF greater than 65% with mild diastolic dysfunction, normal ventricular wall motion Continue daily aspirin and statin therapy. Continue monitor on cardiac telemetry. 09/29/2019-stable. Continue daily aspirin and statin. Continue telemetry (5) Acute kidney injury Is this a current diagnosis for this admission?: Yes Plan: Resolved. And 1.13/BUN 17; down from 2.42/29 Likely secondary to hypotension Continue IV fluids until taking adequate p.o. fluids. 09/29/2019-stable continue to follow (6) Acute respiratory failure with hypoxemia Is this a current diagnosis for this admission?: Yes Plan: Resolved. Secondary to substance overdose. Patient was intubated on 09/24/2019; extubated 09/26/2019. Continue supplemental oxygen as needed to maintain saturations. Continue scheduled and as needed nebulizer treatments. 09/29/2019-stable continue submental oxygen as needed (7) UTI (urinary tract infection) Qualifiers: Urinary tract infection type: catheter-associated UTI Indwelling urinary catheter type: indwelling urethral catheter Encounter type: initial encounter Qualified Code(s): T83.511A - Infection and inflammatory reaction due to indwelling urethral catheter, initial encounter; N39.0 - Urinary tract infection, site not specified Is this a current diagnosis for this admission?: Yes Plan: Urinalysis positive for UTI. Urine culture pending. Empirically started on IV Rocephin. 09/29/2019-continue Rocephin until cultures return (8) Hyperkalemia Is this a current diagnosis for this admission?: Yes Plan: K 5.3 Continue IVF. Start Veltassa 09/29/2019-awaiting a.m. labs. Make change in plan of care at that time. - Time Time Spent with patient: 15-24 minutes - Inpatient Certification Based on my medical assessment, after consideration of the patient's comorbidities, presenting symptoms, or acuity I expect that the services needed warrant INPATIENT care.: Yes I certify that my determination is in accordance with my understanding of Medicare's requirements for reasonable and necessary INPATIENT services [42 CFR 412.3e].: Yes Medical Necessity: Other - IV diuresis
[2019-09-29 08:49] LABS: DIRECT LDL 164 mg/dL (<100)
[2019-09-29 08:50] LABS: VLDL CHOLESTEROL 59.4 mg/dL (10-31)
[2019-09-29] MEDS: ENOXAPARIN SODIUM INJ 30 MG/0.3 ML DISP.SYRIN SUBCUT SCH (09:15)
[2019-09-29] MEDS: LACTOBACILLUS ACIDOPHILUS 250 MG TAB PO SCH ×2 (11:34→17:05)
[2019-09-29] MEDS: DOCUSATE SODIUM 100 MG CAPSULE PO SCH ×2 (11:34→17:03)
[2019-09-29] MEDS: CLOPIDOGREL BISULFATE 75 MG TABLET PO SCH (11:35)
[2019-09-29] MEDS: FAMOTIDINE 20 MG TABLET PO SCH (11:35)
[2019-09-29] MEDS: AMLODIPINE BESYLATE 10 MG TABLET PO SCH (11:35)
[2019-09-29] MEDS: CEFTRIAXONE 1 GM/D5W RTU 1 GM/50 ML RTUPB IV SCH (14:10)
[2019-09-29] MEDS: PATIROMER 8.4 GM SUSP PACKET PO SCH (17:04)
[2019-09-30] MEDS: LEVOTHYROXINE SODIUM 0.1 MG TABLET PO SCH (06:00)
[2019-09-30] MEDS: LEVOTHYROXINE SODIUM 0.075 MG TABLET PO SCH (06:00)
[2019-09-30 07:13] LABS: ANION GAP 12 (5-19); BLOOD UREA NITROGEN 12 mg/dL (7-20); CALCIUM 9.5 mg/dL (8.4-10.2); CARBON DIOXIDE 21 mmol/L (22-30); CHLORIDE 103 mmol/L (98-107); GLUCOSE 126 mg/dL (75-110); POTASSIUM 4.4 mmol/L (3.6-5.0)
[2019-09-30] MEDS: INSULIN LISPRO 100 UNIT/ML 3 ML VIAL SUBCUT SCH ×4 (08:02→21:18)
--- NOTE | 2019-09-30 08:12 | PDOC PROGRESS REPORT ---
Subjective Progress Note for:: 09/30/19 Subjective:: 09/29/2019-no complaints this a.m. 09/30/2019-no complaints Reason For Visit: AMS,LONG QT,OVERDOSE Physical Exam Vital Signs: Temp Pulse Resp BP Pulse Ox 98.8 F 111 H 12 177/104 H 100 09/29/19 23:46 09/30/19 07:00 09/30/19 03:49 09/30/19 03:49 09/30/19 03:49 Intake & Output 09/29/19 09/30/19 10/01/19 06:59 06:59 06:59 Intake Total 1050 390 Output Total 880 155 Balance 170 235 Weight 55.1 kg General appearance: PRESENT: no acute distress, well-developed, well-nourished Neck exam: ABSENT: carotid bruit, JVD, lymphadenopathy, thyromegaly Respiratory exam: PRESENT: clear to auscultation jaqueline. ABSENT: rales, rhonchi, wheezes Cardiovascular exam: PRESENT: RRR. ABSENT: diastolic murmur, rubs, systolic murmur Vascular exam: PRESENT: normal capillary refill GI/Abdominal exam: PRESENT: normal bowel sounds, soft. ABSENT: distended, guarding, mass, organolmegaly, rebound, tenderness Extremities exam: PRESENT: full ROM. ABSENT: calf tenderness, clubbing, pedal edema Neurological exam: PRESENT: alert, awake, oriented to person, oriented to place, oriented to time, oriented to situation Psychiatric exam: PRESENT: appropriate affect, normal mood. ABSENT: homicidal ideation, suicidal ideation Skin exam: PRESENT: dry, intact, warm, other - Left arm dressing in place. A BSENT: cyanosis, rash Results Laboratory Results: 09/30/19 04:07 09/29/19 09/29/19 09/30/19 07:40 07:40 04:07 WBC 8.6 RBC 4.56 Hgb 12.5 Hct 37.6 MCV 83 MCH 27.5 MCHC 33.3 RDW 16.3 H Plt Count 464 H Sodium 133.3 L 135.6 L Potassium 4.8 4.4 Chloride 102 103 Carbon Dioxide 19 L 21 L Anion Gap 12 12 BUN 12 12 Creatinine 0.98 1.02 Est GFR ( Amer) > 60 > 60 Glucose 120 H 126 H Calcium 8.9 9.5 Triglycerides 297 H Cholesterol 242.46 H LDL Cholesterol Direct 164 H VLDL Cholesterol 59.4 H HDL Cholesterol 32 L 09/24/19 09/24/19 09/25/19 22:35 22:35 07:05 Creatine Kinase 84 709 H Troponin I 0.807 09/25/19 09/25/19 09/25/19 10:33 10:33 18:44 Creatine Kinase 896 H Troponin I 10.900 7.170 09/26/19 09/28/19 09/29/19 03:29 16:21 00:43 Creatine Kinase Troponin I 3.480 0.675 0.676 09/29/19 07:40 Creatine Kinase Troponin I 0.635 Impressions: Head CT 09/24/19 23:12 IMPRESSION: No acute findings. Chest X-Ray 09/24/19 23:13 IMPRESSION: Endotracheal tube tip is located within the trachea, approximately 2.8 cm above the larisa. Otherwise, clear lungs. copyright 2011 [email or web address]- All Rights Reserved Brain MRI with MRA 09/28/19 00:00 IMPRESSION: NORMAL MRA OF THE [place]. Carotid Doppler Study 09/28/19 00:00 IMPRESSION: 1. Atherosclerosis 2. Greater than 70% stenosis of the right internal carotid artery, as seen on 05/29/2019 3. No significant stenosis of the left internal carotid artery 4. At least 50-69% stenosis of the left external carotid artery 5. Right vertebral could not be identified. Normal antegrade flow in the left vertebral artery. Head MRI 09/28/19 00:00 IMPRESSION: SEVERAL AREAS OF RESTRICTED DIFFUSION CONSISTENT WITH RECENT INFARCT. AREAS OF INVOLVEMENT INCLUDE THE CORTICAL SURFACES OF THE RIGHT AND LEFT OCCIPITAL LOBE, SUBCORTICAL WHITE MATTER OF THE POSTERIOR LEFT PARIETAL LOBE, AND IN THE RIGHT THALAMUS. POSSIBLE SIMILAR FINDING IN THE RIGHT CEREBELLAR HEMISPHERE. EVIDENCE OF ACUTE STROKE: YES. RIGHT AND LEFT POSTERIOR CIRCULATION AND RIGHT AND LEFT MIDDLE CEREBRAL ARTERY. Assessment and Plan - Diagnosis (1) Drug overdose, multiple drugs Qualifiers: Encounter type: initial encounter Injury intent: undetermined intent Qualified Code(s): T50.914A - Poisoning by multiple unspecified drugs, med icaments and biological substances, undetermined, initial encounter Is this a current diagnosis for this admission?: Yes Plan: Admitted 09/25/2019 for altered mental status and acute respiratory failure with hypoxia requiring intubation. Per roommate, the patient likely overdosed on approximately 42 Seroquel pills (unknown dose). Poison control following. EKG this morning shows sinus rhythm. QTc interval improved to 499. Mental health services are consulted. Avoid QTC prolonging agents. Continue to monitor on telemetry. Supportive care. 09/29/2019-stable at this time. Patient awake alert. Continue supportive care. Await mental health consultation 09/30/2019-stable continue supportive care await mental health consultation (2) Acute encephalopathy Is this a current diagnosis for this admission?: Yes Plan: 09/29/2019-stable continue to follow (3) Diarrhea Qualifiers: Diarrhea type: functional diarrhea Qualified Code(s): K59.1 - Functional diarrhea Is this a current diagnosis for this admission?: Yes Plan: Stool culture pending. Start lactobacillus twice daily. Continue Lomotil as needed. 09/29/2019-continue Lomotil as needed -continue Lomotil as needed (4) Elevated troponin Is this a current diagnosis for this admission?: Yes Plan: Patient is chest pain-free. Troponin admission 0.807; peaked at 10.9, now trending down. EKG reveals Prolonged QTC, though decreased from time of admission. Echocardiogram reveals LVEF greater than 65% with mild diastolic dysfunction, normal ventricular wall motion Continue daily aspirin and statin therapy. Continue monitor on cardiac telemetry. 09/29/2019-stable. Continue daily aspirin and statin. Continue telemetry 09/30/2019 continue current therapy (5) Acute kidney injury Is this a current diagnosis for this admission?: Yes Plan: Resolved. And 1.13/BUN 17; down from 2.42/29 Likely secondary to hypotension Continue IV fluids until taking adequate p.o. fluids. 09/29/2019-stable continue to follow 09/30/2019- continue to follow continue to encourage p.o. intake (6) Acute respiratory failure with hypoxemia Is this a current diagnosis for this admission?: Yes Plan: Resolved. Secondary to substance overdose. Patient was intubated on 09/24/2019; extubated 09/26/2019. Continue supplemental oxygen as needed to maintain saturations. Continue scheduled and as needed nebulizer treatments. 09/29/2019-stable continue submental oxygen as needed -stable continue supplemental oxygen (7) UTI (urinary tract infection) Qualifiers: Urinary tract infection type: catheter-associated UTI Indwelling urinary catheter type: indwelling urethral catheter Encounter type: initial encounter Qualified Code(s): T83.511A - Infection and inflammatory reaction due to indwelling urethral catheter, initial encounter; N39.0 - Urinary tract infection, site not specified Is this a current diagnosis for this admission?: Yes Plan: Urinalysis positive for UTI. Urine culture pending. Empirically started on IV Rocephin. 09/29/2019-continue Rocephin until cultures return 09/30/2019-continue Rocephin await culture (8) Hyperkalemia Is this a current diagnosis for this admission?: Yes Plan: K 5.3 Continue IVF. Start Veltassa 09/29/2019-awaiting a.m. labs. Make change in plan of care at that time. 09/30/2019-stable at this time continue to follow - Time Time Spent with patient: 15-24 minutes - Inpatient Certification Based on my medical assessment, after consideration of the patient's comorbidities, presenting symptoms, or acuity I expect that the services needed warrant INPATIENT care.: Yes I certify that my determination is in accordance with my understanding of Medicare's requirements for reasonable and necessary INPATIENT services [42 CFR 412.3e].: Yes Medical Necessity: Need for IV Antibiotics
[2019-09-30 08:18] LABS: HEMATOCRIT 39.1 % (36.0-47.0); HEMOGLOBIN 13.1 g/dL (12.0-15.5); MEAN CORPUSCULAR HEMOGLOBIN 27.8 pg (27.0-33.4); MEAN CORPUSCULAR HGB CONC 33.6 g/dL (32.0-36.0); MEAN CORPUSCULAR VOLUME 83 fl (80-97); PLATELET COUNT 425 10^3/uL (150-450); RED BLOOD COUNT 4.73 10^6/uL (3.72-5.28); RED CELL DISTRIBUTION WIDTH 16.1 % (11.5-14.0); WHITE BLOOD COUNT 9.2 10^3/uL (4.0-10.5)
[2019-09-30] MEDS: DULOXETINE HCL 30 MG CAPSULE.DR PO SCH (09:29)
[2019-09-30] MEDS: DOCUSATE SODIUM 100 MG CAPSULE PO SCH ×2 (12:10→17:17)
[2019-09-30] MEDS: AMLODIPINE BESYLATE 10 MG TABLET PO SCH (12:13)
[2019-09-30] MEDS: METOPROLOL SUCCINATE 25 MG TAB.SR.24H PO SCH ×2 (12:13→21:18)
[2019-09-30] MEDS: LACTOBACILLUS ACIDOPHILUS 250 MG TAB PO SCH ×2 (12:13→17:17)
[2019-09-30] MEDS: FAMOTIDINE 20 MG TABLET PO SCH (12:13)
[2019-09-30 12:30] LABS: AMORPHOUS SEDIMENT,URINE TRACE /HPF; APPEARANCE,URINE CLOUDY; BILIRUBIN,URINE NEGATIVE (NEGATIVE); COLOR,URINE YELLOW; GLUCOSE, URINE NEGATIVE (NEGATIVE); KETONES,URINE 20 mg/dL (NEGATIVE); LEUKOCYTE ESTERASE,URINE LARGE (NEGATIVE); NITRITE,URINE NEGATIVE (NEGATIVE); PROTEIN,URINE 30 mg/dL (NEGATIVE); URINE SPECIFIC GRAVITY 1.015; UROBILINOGEN,URINE NEGATIVE mg/dL (<2.0)
[2019-09-30] MEDS ORDERED: LIDOCAINE 2% JELLY 5 ML TUBE ONE (14:37)
[2019-09-30] MEDS: CLOPIDOGREL BISULFATE 75 MG TABLET PO SCH (15:16)
[2019-09-30] MEDS: ENOXAPARIN SODIUM INJ 30 MG/0.3 ML DISP.SYRIN SUBCUT SCH (15:16)
[2019-09-30] MEDS: CEFTRIAXONE 1 GM/D5W RTU 1 GM/50 ML RTUPB IV SCH (15:19)
[2019-09-30] MEDS ORDERED: DIPHENHYDRAMINE HCL 50 MG/ML VIAL ONE (16:54)
[2019-09-30] MEDS ORDERED: LIDOCAINE 2% VISCOUS SOLN 20 ML UDCUP ONE (16:54)
[2019-09-30] MEDS ORDERED: BENZOCAINE 20% AEROSOL SPRAY 60 GM ONE (16:55)
[2019-09-30] MEDS ORDERED: NALOXONE HCL INJ/PF 0.4 MG/1 ML SDV ONE (16:55)
[2019-09-30] MEDS ORDERED: FLUMAZENIL INJ 0.5 MG/5 ML VIAL ONE (16:55)
[2019-09-30] MEDS ORDERED: EPINEPHRINE INJ 1 MG/10 ML DISP.SYRIN ONE (16:56)
[2019-09-30] MEDS ORDERED: GLUCAGON,HUMAN RECOMB 1 MG INJ ONE (16:56)
[2019-09-30] MEDS: PATIROMER 8.4 GM SUSP PACKET PO SCH (17:17)
[2019-09-30] MEDS: MIDAZOLAM 2 MG/2 ML INJ ONE ×3 (17:47→17:54)
[2019-09-30] MEDS: FENTANYL CITRATE INJ/PF 100 MCG/2 ML AMPUL ONE ×3 (17:47→17:55)
--- NOTE | 2019-09-30 18:14 | PDOC CONSULTATION ---
Consultation Consult Date: 09/30/19 Provider Consulted: DEBORAH STOUT History of Present Illness Admission Date/PCP: 09/25/19 03:16 CLINTON TIDWELL MD History of Present Illness: SHELLEY RODRÍGUEZ is a 54 year old female With the following active problems 1. Drug overdose 2. CVA Patient was admitted with drug overdose attribute it to Seroquel. 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 Transesophageal echocardiogram has been requested. Patient is not a great historian and has some processing changes attributable to recent cerebral insult. Presently no complaints. Past Medical History Pulmonary Medical History: Reports: Chronic Obstructive Pulmonary Disease (COPD) Endocrine Medical History: Reports: Diabetes Mellitus Type 2, Hypothyroidism Psychiatric Medical History: Reports: Depression Traumatic Medical History: Denies: Gunshot Wound, Pneumothorax Hematology: Denies: Sickle Cell Disease Infectious Medical History: Denies: HIV Social History Lives with: Friend Smoking Status: Unknown if Ever Smoked Hx Recreational Drug Use: Yes Hx Prescription Drug Abuse: Yes - Advance Directive Resuscitation Status: Full Code Family History Family History: None, Reviewed & Not Pertinent, Other - Unobtainable Parental Family History Reviewed: No Children Family History Reviewed: No Sibling(s) Family History Reviewed.: No Medication/Allergy Home Medications: Amitriptyline HCl [Elavil 25 mg Tablet] 25 mg PO QHS 09/25/19 Amlodipine Besylate [Norvasc 10 mg Tablet] 10 mg PO DAILY 09/25/19 Baclofen [Baclofen 10 mg Tablet] 10 mg PO Q8 09/25/19 Carbamazepine [Carbamazepine ER] 200 mg PO BID 09/25/19 Duloxetine HCl [Cymbalta] 60 mg PO QAM 09/25/19 Gabapentin [Neurontin] 800 mg PO QID 09/25/19 Insulin Lispro [Humalog Ej Kwikpen] 0 unit SQ .SLD SCALE 09/25/19 Levothyroxine Sodium [Synthroid] 175 mcg PO Q6AM 09/25/19 Lisinopril [Prinivil 10 mg Tablet] 10 mg PO QHS 09/25/19 Metformin HCl [Glucophage] 1,000 mg PO BID 09/25/19 Quetiapine Fumarate [Seroquel 100 mg Tablet] 100 mg PO QHS 09/25/19 Simvastatin [Zocor 10 mg Tablet] 10 mg PO QHS 09/25/19 Tramadol HCl [Ultram 50 mg Tablet] 50 mg PO Q8 09/25/19 Allergies/Adverse Reactions: Penicillins Allergy (Verified 05/28/19 18:43) Review of Systems Constitutional: PRESENT: as per HPI Eyes: PRESENT: as per HPI Cardiovascular: PRESENT: as per HPI Physical Exam Vital Signs: Temp Pulse Resp BP Pulse Ox 98.1 F 74 16 144/90 H 98 09/30/19 12:02 09/30/19 14:00 09/30/19 12:02 09/30/19 12:02 09/30/19 12:02 Intake & Output 09/29/19 09/30/19 10/01/19 06:59 06:59 06:59 Intake Total 1050 390 Output Total 880 755 100 Balance 170 -365 -100 Weight 55.1 kg 53 kg 53 kg General appearance: PRESENT: no acute distress Head exam: PRESENT: atraumatic Eye exam: PRESENT: EOMI Ear exam: PRESENT: normal external ear exam Mouth exam: PRESENT: moist Respiratory exam: PRESENT: symmetrical, unlabored Cardiovascular exam: PRESENT: RRR Vascular exam: PRESENT: normal capillary refill GI/Abdominal exam: PRESENT: soft Musculoskeletal exam: PRESENT: normal inspection Neurological exam: PRESENT: alert, awake Results Laboratory Results: 09/30/19 04:07 09/30/19 04:07 09/30/19 09/30/19 09/30/19 04:07 04:07 11:54 WBC 9.2 RBC 4.73 Hgb 13.1 Hct 39.1 MCV 83 MCH 27.8 MCHC 33.6 RDW 16.1 H Plt Count 425 Sodium 135.6 L Potassium 4.4 Chloride 103 Carbon Dioxide 21 L Anion Gap 12 BUN 12 Creatinine 1.02 Est GFR ( Amer) > 60 Glucose 126 H Calcium 9.5 Urine Color YELLOW Urine Appearance CLOUDY Urine pH 6.0 Ur Specific [place] 1.015 Urine Protein 30 H Urine Glucose (UA) NEGATIVE Urine Ketones 20 H Urine Blood MODERATE H Urine Nitrite NEGATIVE Ur Leukocyte Esterase LARGE H Urine WBC (Auto) >182 Urine RBC (Auto) 22 09/28/19 09:55 Duncan Catheter Urine Culture - Final Proteus Mirabilis Klebsiella(Enterobac)Aerogenes 09/24/19 09/24/19 09/25/19 22:35 22:35 07:05 Creatine Kinase 84 709 H Troponin I 0.807 09/25/19 09/25/19 09/25/19 10:33 10:33 18:44 Creatine Kinase 896 H Troponin I 10.900 7.170 09/26/19 09/28/19 09/29/19 03:29 16:21 00:43 Creatine Kinase Troponin I 3.480 0.675 0.676 09/29/19 07:40 Creatine Kinase Troponin I 0.635 Impressions: Head CT 09/24/19 23:12 IMPRESSION: No acute findings. Chest X-Ray 09/24/19 23:13 IMPRESSION: Endotracheal tube tip is located within the trachea, approximately 2.8 cm above the larisa. Otherwise, clear lungs. copyright 2011 [employer]- All Rights Reserved Brain MRI with MRA 09/28/19 00:00 IMPRESSION: NORMAL MRA OF THE [place]. Carotid Doppler Study 09/28/19 00:00 IMPRESSION: 1. Atherosclerosis 2. Greater than 70% stenosis of the right internal carotid artery, as seen on 05/29/2019 3. No significant stenosis of the left internal carotid artery 4. At least 50-69% stenosis of the left external carotid artery 5. Right vertebral could not be identified. Normal antegrade flow in the left vertebral artery. Head MRI 09/28/19 00:00 IMPRESSION: SEVERAL AREAS OF RESTRICTED DIFFUSION CONSISTENT WITH RECENT INFARCT. AREAS OF INVOLVEMENT INCLUDE THE CORTICAL SURFACES OF THE RIGHT AND LEFT OCCIPITAL LOBE, SUBCORTICAL WHITE MATTER OF THE POSTERIOR LEFT PARIETAL LOBE, AND IN THE RIGHT THALAMUS. POSSIBLE SIMILAR FINDING IN THE RIGHT CEREBELLAR HEMISPHERE. EVIDENCE OF ACUTE STROKE: YES. RIGHT AND LEFT POSTERIOR CIRCULATION AND RIGHT AND LEFT MIDDLE CEREBRAL ARTERY. Assessment & Plan - Diagnosis (1) CVA (cerebral vascular accident) Qualifiers: CVA mechanism: unspecified Qualified Code(s): I63.9 - Cerebral infarction, unspecified Is this a current diagnosis for this admission?: Yes Plan: Request for transesophageal echocardiogram as part of work-up for embolic CVA Cervical overdose Long QT acquired secondary to drug overdose We will proceed with transesophageal echocardiogram. Transesophageal echocardiogram was attempted after giving 3 mg of midazolam and 75 mcg of fentanyl. In spite of fairly adequate sedation patient did have trouble swallowing the probe due to a powerful gag reflex. After several attempts and with the onset of mild desaturation we decided to abort the procedure. The procedure can be reattempted with anesthesia support. The above was communicated with the primary team.
[2019-09-30] MEDS: LISINOPRIL 10 MG TABLET PO SCH (21:18)
[2019-09-30] MEDS: ATORVASTATIN CALCIUM 80 MG TABLET PO SCH (21:18)
[2019-09-30] MEDS: AMITRIPTYLINE HCL 25 MG TABLET PO SCH (21:18)
[2019-10-01] MEDS: LEVOTHYROXINE SODIUM 0.1 MG TABLET PO SCH (05:27)
[2019-10-01] MEDS: LEVOTHYROXINE SODIUM 0.075 MG TABLET PO SCH (05:27)
[2019-10-01 06:42] LABS: ANION GAP 8 (5-19); BLOOD UREA NITROGEN 15 mg/dL (7-20); CARBON DIOXIDE 25 mmol/L (22-30); CHLORIDE 102 mmol/L (98-107); GLUCOSE 114 mg/dL (75-110); POTASSIUM 3.9 mmol/L (3.6-5.0)
[2019-10-01] MEDS: INSULIN LISPRO 100 UNIT/ML 3 ML VIAL SUBCUT SCH ×4 (08:14→21:57)
[2019-10-01] MEDS: DULOXETINE HCL 30 MG CAPSULE.DR PO SCH (08:15)
--- NOTE | 2019-10-01 08:32 | PDOC PROGRESS REPORT ---
Subjective Progress Note for:: 10/01/19 Subjective:: 09/29/2019-no complaints this a.m. 09/30/2019-no complaints 10/01/2019-no complaints this a.m. Reason For Visit: AMS,LONG QT,OVERDOSE Physical Exam Vital Signs: Temp Pulse Resp BP Pulse Ox 97.8 F 60 14 145/74 H 100 10/01/19 03:53 10/01/19 07:00 10/01/19 03:53 10/01/19 03:53 10/01/19 03:53 Intake & Output 09/30/19 10/01/19 10/02/19 06:59 06:59 06:59 Intake Total 390 Output Total 755 100 Balance -365 -100 Weight 53 kg 53.9 kg General appearance: PRESENT: no acute distress, thin Neck exam: ABSENT: carotid bruit, JVD, lymphadenopathy, thyromegaly Respiratory exam: PRESENT: clear to auscultation jaqueline. ABSENT: rales, rhonchi, wheezes Cardiovascular exam: PRESENT: RRR. ABSENT: diastolic murmur, rubs, systolic murmur Pulses: PRESENT: normal dorsalis pedis pul GI/Abdominal exam: PRESENT: normal bowel sounds, soft. ABSENT: distended, guarding, mass, organolmegaly, rebound, tenderness Extremities exam: PRESENT: full ROM. ABSENT: calf tenderness, clubbing, pedal edema Neurological exam: PRESENT: alert, awake, oriented to person, oriented to place, oriented to time, oriented to situation, CN II-XII grossly intact. ABSENT: motor sensory deficit Psychiatric exam: PRESENT: appropriate affect, normal mood. ABSENT: homicidal ideation, suicidal ideation Skin exam: PRESENT: dry, intact, warm. ABSENT: cyanosis, rash Results Laboratory Results: 09/30/19 04:07 10/01/19 05:43 09/30/19 10/01/19 11:54 05:43 Sodium 134.7 L Potassium 3.9 Chloride 102 Carbon Dioxide 25 Anion Gap 8 BUN 15 Creatinine 1.21 Est GFR ( Amer) 56 L Glucose 114 H Calcium 9.0 Urine Color YELLOW Urine Appearance CLOUDY Urine pH 6.0 Ur Specific [place] 1.015 Urine Protein 30 H Urine Glucose (UA) NEGATIVE Urine Ketones 20 H Urine Blood MODERATE H Urine Nitrite NEGATIVE Ur Leukocyte Esterase LARGE H Urine WBC (Auto) >182 Urine RBC (Auto) 22 09/28/19 09:55 Duncan Catheter Urine Culture - Final Proteus Mirabilis Klebsiella(Enterobac)Aerogenes 09/24/19 09/24/19 09/25/19 22:35 22:35 07:05 Creatine Kinase 84 709 H Troponin I 0.807 09/25/19 09/25/19 09/25/19 10:33 10:33 18:44 Creatine Kinase 896 H Troponin I 10.900 7.170 09/26/19 09/28/19 09/29/19 03:29 16:21 00:43 Creatine Kinase Troponin I 3.480 0.675 0.676 09/29/19 07:40 Creatine Kinase Troponin I 0.635 Impressions: Head CT 09/24/19 23:12 IMPRESSION: No acute findings. Chest X-Ray 09/24/19 23:13 IMPRESSION: Endotracheal tube tip is located within the trachea, approximately 2.8 cm above the larisa. Otherwise, clear lungs. copyright 2010 [employer]- All Rights Reserved Brain MRI with MRA 09/28/19 00:00 IMPRESSION: NORMAL MRA OF THE [place]. Carotid Doppler Study 09/28/19 00:00 IMPRESSION: 1. Atherosclerosis 2. Greater than 70% stenosis of the right internal carotid artery, as seen on 05/29/2019 3. No significant stenosis of the left internal carotid artery 4. At least 50-69% stenosis of the left external carotid artery 5. Right vertebral could not be identified. Normal antegrade flow in the left vertebral artery. Head MRI 09/28/19 00:00 IMPRESSION: SEVERAL AREAS OF RESTRICTED DIFFUSION CONSISTENT WITH RECENT INFARCT. AREAS OF INVOLVEMENT INCLUDE THE CORTICAL SURFACES OF THE RIGHT AND LEFT OCCIPITAL LOBE, SUBCORTICAL WHITE MATTER OF THE POSTERIOR LEFT PARIETAL LOBE, AND IN THE RIGHT THALAMUS. POSSIBLE SIMILAR FINDING IN THE RIGHT CEREBELLAR HEMISPHERE. EVIDENCE OF ACUTE STROKE: YES. RIGHT AND LEFT POSTERIOR CIRCULATION AND RIGHT AND LEFT MIDDLE CEREBRAL ARTERY. Assessment and Plan - Diagnosis (1) Drug overdose, multiple drugs Qualifiers: Encounter type: initial encounter Injury intent: undetermined intent Qualified Code(s): T50.914A - Poisoning by multiple unspecified drugs, medicaments and biological substances, undetermined, initial encounter Is this a current diagnosis for this admission?: Yes Plan: Admitted 09/25/2019 for altered mental status and acute respiratory failure with hypoxia requiring intubation. Per roommate, the patient likely overdosed on approximately 42 Seroquel pills (unknown dose). Poison control following. EKG this morning shows sinus rhythm. QTc interval improved to 499. Mental health services are consulted. Avoid QTC prolonging agents. Continue to monitor on telemetry. Supportive care. 09/29/2019-stable at this time. Patient awake alert. Continue supportive care. Await mental health consultation 09/30/2019-stable continue supportive care await mental health consultation 10/01/2019 continue to follow (2) Acute encephalopathy Is this a current diagnosis for this admission?: Yes Plan: 09/29/2019stable continue to follow 10/01/2019. Unfortunately I believe this last overdose has taken a toll. Not sure how much more past this point she will get her baseline. We will continue to follow (3) Diarrhea Qualifiers: Diarrhea type: functional diarrhea Qualified Code(s): K59.1 - Functional diarrhea Is this a current diagnosis for this admission?: Yes Plan: Stool culture pending. Start lactobacillus twice daily. Continue Lomotil as needed. 09/29/2019-continue Lomotil as needed -continue Lomotil as needed 10/01/2019 continue to follow (4) Elevated troponin Is this a current diagnosis for this admission?: Yes Plan: Patient is chest pain-free. Troponin admission 0.807; peaked at 10.9, now trending down. EKG reveals Prolonged QTC, though decreased from time of admission. Echocardiogram reveals LVEF greater than 65% with mild diastolic dysfunction, normal ventricular wall motion Continue daily aspirin and statin therapy. Continue monitor on cardiac telemetry. 09/29/2019-stable. Continue daily aspirin and statin. Continue telemetry 09/30/2019- continue current therapy 10/01/2019 continue aspirin and statin (5) Acute kidney injury Is this a current diagnosis for this admission?: Yes Plan: Resolved. And 1.13/BUN 17; down from 2.42/29 Likely secondary to hypotension Continue IV fluids until taking adequate p.o. fluids. 09/29/2019-stable continue to follow 09/30/2019 continue to follow continue to encourage p.o. intake 10/01/2019 continue to follow (6) Acute respiratory failure with hypoxemia Is this a current diagnosis for this admission?: Yes Plan: Resolved. Secondary to substance overdose. Patient was intubated on 09/24/2019; extubated 09/26/2019. Continue supplemental oxygen as needed to maintain saturations. Continue scheduled and as needed nebulizer treatments. 09/29/2019-stable continue submental oxygen as needed -stable continue supplemental oxygen 10/01/2019-stable continue supplemental oxygen (7) UTI (urinary tract infection) Qualifiers: Urinary tract infection type: catheter-associated UTI Indwelling urinary catheter type: indwelling urethral catheter Encounter type: initial encounter Qualified Code(s): T83.511A - Infection and inflammatory reaction due to indwelling urethral catheter, initial encounter; N39.0 - Urinary tract infection, site not specified Is this a current diagnosis for this admission?: Yes Plan: Urinalysis positive for UTI. Urine culture pending. Empirically started on IV Rocephin. 09/29/2019-continue Rocephin until cultures return 09/30/2019-continue Rocephin await culture (8) Hyperkalemia Is this a current diagnosis for this admission?: Yes Plan: K 5.3 Continue IVF. Start Veltassa 09/29/2019-awaiting a.m. labs. Make change in plan of care at that time. 09/30/2019-stable at this time continue to follow 10/01/2019-stable continue to follow - Time Time Spent with patient: 15-24 minutes - Inpatient Certification Based on my medical assessment, after consideration of the patient's comorbidities, presenting symptoms, or acuity I expect that the services needed warrant INPATIENT care.: Yes I certify that my determination is in accordance with my understanding of Medicare's requirements for reasonable and necessary INPATIENT services [42 CFR 412.3e].: Yes Medical Necessity: Significant Comorbidiites Make Outpatient Treatment Too Risky, Need Close Monitoring Due to Risk of Patient Decompensation
[2019-10-01] MEDS: DOCUSATE SODIUM 100 MG CAPSULE PO SCH ×2 (09:52→17:22)
[2019-10-01] MEDS: LACTOBACILLUS ACIDOPHILUS 250 MG TAB PO SCH ×2 (09:52→17:22)
[2019-10-01] MEDS: ENOXAPARIN SODIUM INJ 30 MG/0.3 ML DISP.SYRIN SUBCUT SCH (09:53)
[2019-10-01] MEDS ORDERED: CIPROFLOXACIN HCL 500 MG TABLET PO SCH (10:00)
[2019-10-01] MEDS: FAMOTIDINE 20 MG TABLET PO SCH (10:16)
[2019-10-01] MEDS: SULFAMETHOXAZOLE/TRIMETHOPRIM 800-160 MG TABLET PO SCH ×2 (10:17→22:01)
[2019-10-01] MEDS: CLOPIDOGREL BISULFATE 75 MG TABLET PO SCH (10:17)
[2019-10-01] MEDS: AMLODIPINE BESYLATE 10 MG TABLET PO SCH (10:17)
[2019-10-01] MEDS: METOPROLOL SUCCINATE 25 MG TAB.SR.24H PO SCH ×2 (10:18→22:01)
[2019-10-01] MEDS: PATIROMER 8.4 GM SUSP PACKET PO SCH (17:21)
[2019-10-01] MEDS: AMITRIPTYLINE HCL 25 MG TABLET PO SCH (22:01)
[2019-10-01] MEDS: LISINOPRIL 10 MG TABLET PO SCH (22:01)
[2019-10-01] MEDS: ATORVASTATIN CALCIUM 80 MG TABLET PO SCH (22:01)
[2019-10-02] MEDS: LEVOTHYROXINE SODIUM 0.1 MG TABLET PO SCH (05:26)
[2019-10-02] MEDS: LEVOTHYROXINE SODIUM 0.075 MG TABLET PO SCH (05:26)
[2019-10-02 06:22] LABS: HEMATOCRIT 38.2 % (36.0-47.0); HEMOGLOBIN 12.6 g/dL (12.0-15.5); MEAN CORPUSCULAR HEMOGLOBIN 27.4 pg (27.0-33.4); MEAN CORPUSCULAR VOLUME 83 fl (80-97); PLATELET COUNT 447 10^3/uL (150-450); RED CELL DISTRIBUTION WIDTH 16.6 % (11.5-14.0); WHITE BLOOD COUNT 6.8 10^3/uL (4.0-10.5)
[2019-10-02] MEDS: INSULIN LISPRO 100 UNIT/ML 3 ML VIAL SUBCUT SCH ×4 (08:04→21:30)
--- NOTE | 2019-10-02 08:35 | PDOC PROGRESS REPORT ---
Subjective Progress Note for:: 10/02/19 Subjective:: 09/29/2019-no complaints this a.m. 09/30/2019-no complaints 10/01/2019-no complaints this a.m. 10/02/2019-no complaints Reason For Visit: AMS,LONG QT,OVERDOSE Physical Exam Vital Signs: Temp Pulse Resp BP Pulse Ox 97.9 F 67 18 162/86 H 99 10/02/19 07:41 10/02/19 07:41 10/02/19 07:41 10/02/19 07:41 10/02/19 07:41 Intake & Output 10/01/19 10/02/19 10/03/19 06:59 06:59 06:59 Intake Total 360 Output Total 100 50 Balance -100 310 Weight 53.9 kg 53.7 kg General appearance: PRESENT: no acute distress, well-developed, well-nourished Neck exam: ABSENT: carotid bruit, JVD, lymphadenopathy, thyromegaly Respiratory exam: PRESENT: clear to auscultation jaqueline. ABSENT: rales, rhonchi, wheezes Cardiovascular exam: PRESENT: RRR. ABSENT: diastolic murmur, rubs, systolic murmur Pulses: PRESENT: +1 pedal pulses bilateral Vascular exam: PRESENT: normal capillary refill GI/Abdominal exam: PRESENT: normal bowel sounds, soft. ABSENT: distended, guarding, mass, organolmegaly, rebound, tenderness Extremities exam: PRESENT: full ROM. ABSENT: calf tenderness, clubbing, pedal edema Neurological exam: PRESENT: alert, awake Psychiatric exam: PRESENT: appropriate affect, normal mood. ABSENT: homicidal ideation, suicidal ideation Skin exam: PRESENT: dry, intact, warm. ABSENT: cyanosis, rash Results Laboratory Results: 10/02/19 06:00 10/01/19 05:43 10/02/19 06:00 WBC 6.8 RBC 4.60 Hgb 12.6 Hct 38.2 MCV 83 MCH 27.4 MCHC 33.0 RDW 16.6 H Plt Count 447 09/28/19 09:55 Stool - Stool - Final 09/28/19 09:55 Stool - Stool Stool Culture - Final NO SALMONELLA, SHIGELLA, CAMPYLOBACTER, OR E.COLI 0157 RECOVERED. NEGATIVE FOR SHIGA TOXINS 1&2. 09/24/19 09/24/19 09/25/19 22:35 22:35 07:05 Creatine Kinase 84 709 H Troponin I 0.807 09/25/19 09/25/19 09/25/19 10:33 10:33 18:44 Creatine Kinase 896 H Troponin I 10.900 7.170 09/26/19 09/28/19 09/29/19 03:29 16:21 00:43 Creatine Kinase Troponin I 3.480 0.675 0.676 09/29/19 07:40 Creatine Kinase Troponin I 0.635 Impressions: Head CT 09/24/19 23:12 IMPRESSION: No acute findings. Chest X-Ray 09/24/19 23:13 IMPRESSION: Endotracheal tube tip is located within the trachea, approximately 2.8 cm above the larisa. Otherwise, clear lungs. copyright 2010 [employer]- All Rights Reserved Brain MRI with MRA 09/28/19 00:00 IMPRESSION: NORMAL MRA OF [place]. Carotid Doppler Study 09/28/19 00:00 IMPRESSION: 1. Atherosclerosis 2. Greater than 70% stenosis of the right internal carotid artery, as seen on 05/29/2019 3. No significant stenosis of the left internal carotid artery 4. At least 50-69% stenosis of the left external carotid artery 5. Right vertebral could not be identified. Normal antegrade flow in the left vertebral artery. Head MRI 09/28/19 00:00 IMPRESSION: SEVERAL AREAS OF RESTRICTED DIFFUSION CONSISTENT WITH RECENT INFARCT. AREAS OF INVOLVEMENT INCLUDE THE CORTICAL SURFACES OF THE RIGHT AND LEFT OCCIPITAL LOBE, SUBCORTICAL WHITE MATTER OF THE POSTERIOR LEFT PARIETAL LOBE, AND IN THE RIGHT THALAMUS. POSSIBLE SIMILAR FINDING IN THE RIGHT CEREBELLAR HEMISPHERE. EVIDENCE OF ACUTE STROKE: YES. RIGHT AND LEFT POSTERIOR CIRCULATION AND RIGHT AND LEFT MIDDLE CEREBRAL ARTERY. Assessment and Plan - Diagnosis (1) Drug overdose, multiple drugs Qualifiers: Encounter type: initial encounter Injury intent: undetermined intent Qualified Code(s): T50.914A - Poisoning by multiple unspecified drugs, m edicaments and biological substances, undetermined, initial encounter Is this a current diagnosis for this admission?: Yes Plan: Admitted 09/25/2019 for altered mental status and acute respiratory failure with hypoxia requiring intubation. Per roommate, the patient likely overdosed on approximately 42 Seroquel pills (unknown dose). Poison control following. EKG this morning shows sinus rhythm. QTc interval improved to 499. Mental health services are consulted. Avoid QTC prolonging agents. Continue to monitor on telemetry. Supportive care. 09/29/2019-stable at this time. Patient awake alert. Continue supportive care. Await mental health consultation 09/30/2019 continue supportive care await mental health consultation 10/01/2019 continue to follow 10/02/2019-remains in bed no complaints. Continue to follow (2) Acute encephalopathy Is this a current diagnosis for this admission?: Yes Plan: 09/29/2019 continue to follow 10/01/2019. Unfortunately I believe this last overdose has taken a toll. Not sure how much more past this point she will get her baseline. We will continue to follow 10/02/2019 continue to follow (3) Diarrhea Qualifiers: Diarrhea type: functional diarrhea Qualified Code(s): K59.1 - Functional diarrhea Is this a current diagnosis for this admission?: Yes Plan: Stool culture pending. Start lactobacillus twice daily. Continue Lomotil as needed. 09/29/2019-continue Lomotil as needed -continue Lomotil as needed 10/01/2019 continue to follow (4) Elevated troponin Is this a current diagnosis for this admission?: Yes Plan: Patient is chest pain-free. Troponin admission 0.807; peaked at 10.9, now trending down. EKG reveals Prolonged QTC, though decreased from time of admission. Echocardiogram reveals LVEF greater than 65% with mild diastolic dysfunction, normal ventricular wall motion Continue daily aspirin and statin therapy. Continue monitor on cardiac telemetry. 09/29/2019-stable. Continue daily aspirin and statin. Continue telemetry 09/30/2019 continue current therapy 10/01/2019 continue aspirin and statin (5) Acute kidney injury Is this a current diagnosis for this admission?: Yes Plan: Resolved. And 1.13/BUN 17; down from 2.42/29 Likely secondary to hypotension Continue IV fluids until taking adequate p.o. fluids. 09/29/2019-stable continue to follow 09/30/2019 continue to follow continue to encourage p.o. intake 10/01/2019- continue to follow 10/02/2019- continue to follow (6) Acute respiratory failure with hypoxemia Is this a current diagnosis for this admission?: Yes Plan: Resolved. Secondary to substance overdose. Patient was intubated on 09/24/2019; extubated 09/26/2019. Continue supplemental oxygen as needed to maintain saturations. Continue scheduled and as needed nebulizer treatments. 09/29/2019-stable continue submental oxygen as needed -stable continue supplemental oxygen 10/01/2019-stable continue supplemental oxygen 10/02/2019-stable (7) UTI (urinary tract infection) Qualifiers: Urinary tract infection type: catheter-associated UTI Indwelling urinary catheter type: indwelling urethral catheter Encounter type: initial encounter Qualified Code(s): T83.511A - Infection and inflammatory reaction due to indwelling urethral catheter, initial encounter; N39.0 - Urinary tract infection, site not specified Is this a current diagnosis for this admission?: Yes Plan: Urinalysis positive for UTI. Urine culture pending. Empirically started on IV Rocephin. 09/29/2019-continue Rocephin until cultures return 09/30/2019-continue Rocephin await culture 10/02/2019-cultures show Proteus and Klebsiella species. Both susceptible to Cipro. Place patient on Cipro at this time will get an EKG to evaluate QT interval. (8) Hyperkalemia Is this a current diagnosis for this admission?: Yes Plan: K 5.3 Continue IVF. Start Veltassa 09/29/2019-awaiting a.m. labs. Make change in plan of care at that time. 09/30/2019-stable at this time continue to follow 10/01/2019-stable continue to follow 10/02/2019-stable continue to follow - Time Time Spent with patient: 15-24 minutes
[2019-10-02] MEDS: DULOXETINE HCL 30 MG CAPSULE.DR PO SCH (09:00)
[2019-10-02] MEDS: LACTOBACILLUS ACIDOPHILUS 250 MG TAB PO SCH ×2 (10:04→17:48)
[2019-10-02] MEDS: ENOXAPARIN SODIUM INJ 30 MG/0.3 ML DISP.SYRIN SUBCUT SCH (10:05)
[2019-10-02] MEDS: DOCUSATE SODIUM 100 MG CAPSULE PO SCH ×2 (10:05→17:48)
[2019-10-02] MEDS: AMLODIPINE BESYLATE 10 MG TABLET PO SCH (10:06)
[2019-10-02] MEDS: CLOPIDOGREL BISULFATE 75 MG TABLET PO SCH (10:06)
[2019-10-02] MEDS: FAMOTIDINE 20 MG TABLET PO SCH (10:06)
[2019-10-02] MEDS: SULFAMETHOXAZOLE/TRIMETHOPRIM 800-160 MG TABLET PO SCH ×2 (10:06→21:26)
[2019-10-02] MEDS: METOPROLOL SUCCINATE 25 MG TAB.SR.24H PO SCH ×2 (10:07→21:26)
[2019-10-02] MEDS: PATIROMER 8.4 GM SUSP PACKET PO SCH (17:48)
[2019-10-02] MEDS: ATORVASTATIN CALCIUM 80 MG TABLET PO SCH (21:26)
[2019-10-02] MEDS: AMITRIPTYLINE HCL 25 MG TABLET PO SCH (21:26)
[2019-10-02] MEDS: LISINOPRIL 10 MG TABLET PO SCH (21:26)
[2019-10-03 04:06] LABS: APPEARANCE,URINE CLEAR; BILIRUBIN,URINE NEGATIVE (NEGATIVE); COLOR,URINE YELLOW; GLUCOSE, URINE NEGATIVE (NEGATIVE); KETONES,URINE NEGATIVE (NEGATIVE); LEUKOCYTE ESTERASE,URINE TRACE (NEGATIVE); NITRITE,URINE NEGATIVE (NEGATIVE); PROTEIN,URINE NEGATIVE (NEGATIVE); URINE SPECIFIC GRAVITY 1.009; UROBILINOGEN,URINE NEGATIVE mg/dL (<2.0)
[2019-10-03] MEDS: LEVOTHYROXINE SODIUM 0.1 MG TABLET PO SCH (05:25)
[2019-10-03] MEDS: LEVOTHYROXINE SODIUM 0.075 MG TABLET PO SCH (05:25)
--- NOTE | 2019-10-03 08:19 | PDOC PROGRESS REPORT ---
Subjective Progress Note for:: 10/03/19 Subjective:: 09/29/2019-no complaints this a.m. 09/30/2019-no complaints 10/01/2019-no complaints this a.m. 10/02/2019-no complaints 10/03/2019-no complaints this a.m. Reason For Visit: AMS,LONG QT,OVERDOSE Physical Exam Vital Signs: Temp Pulse Resp BP Pulse Ox 98.0 F 68 18 122/65 99 10/03/19 03:30 10/03/19 07:00 10/03/19 03:30 10/03/19 03:30 10/03/19 03:30 Intake & Output 10/02/19 10/03/19 10/04/19 06:59 06:59 06:59 Intake Total 360 410 Output Total 50 1400 Balance 310 -990 Weight 53.7 kg 54.2 kg General appearance: PRESENT: no acute distress, well-developed, well-nourished Neck exam: ABSENT: carotid bruit, JVD, lymphadenopathy, thyromegaly Respiratory exam: PRESENT: clear to auscultation jaqueline. ABSENT: rales, rhonchi, wheezes Cardiovascular exam: PRESENT: RRR. ABSENT: diastolic murmur, rubs, systolic murmur Pulses: PRESENT: +1 pedal pulses bilateral Vascular exam: PRESENT: normal capillary refill GI/Abdominal exam: PRESENT: normal bowel sounds, soft. ABSENT: distended, guarding, mass, organolmegaly, rebound, tenderness Extremities exam: PRESENT: full ROM. ABSENT: calf tenderness, clubbing, pedal edema Neurological exam: PRESENT: alert, awake Psychiatric exam: PRESENT: appropriate affect, normal mood. ABSENT: homicidal ideation, suicidal ideation Skin exam: PRESENT: other - Multiple skin tears Results Laboratory Results: 10/02/19 06:00 10/01/19 05:43 10/03/19 03:45 Urine Color YELLOW Urine Appearance CLEAR Urine pH 6.0 Ur Specific [place] 1.009 Urine Protein NEGATIVE Urine Glucose (UA) NEGATIVE Urine Ketones NEGATIVE Urine Blood NEGATIVE Urine Nitrite NEGATIVE Ur Leukocyte Esterase TRACE H Urine WBC (Auto) 16 Urine RBC (Auto) 2 09/24/19 09/24/19 09/25/19 22:35 22:35 07:05 Creatine Kinase 84 709 H Troponin I 0.807 09/25/19 09/25/1909/25/19 10:33 10:33 18:44 Creatine Kinase 896 H Troponin I 10.900 7.170 09/26/19 09/28/19 09/29/19 03:29 16:21 00:43 Creatine Kinase Troponin I 3.480 0.675 0.676 09/29/19 07:40 Creatine Kinase Troponin I 0.635 Impressions: Head CT 09/24/19 23:12 IMPRESSION: No acute findings. Chest X-Ray 09/24/19 23:13 IMPRESSION: Endotracheal tube tip is located within the trachea, approximately 2.8 cm above the larisa. Otherwise, clear lungs. copyright 2010 [employer]- All Rights Reserved Brain MRI with MRA 09/28/19 00:00 IMPRESSION: NORMAL MRA OF THE [place]. Carotid Doppler Study 09/28/19 00:00 IMPRESSION: 1. Atherosclerosis 2. Greater than 70% stenosis of the right internal carotid artery, as seen on 05/29/2019 3. No significant stenosis of the left internal carotid artery 4. At least 50-69% stenosis of the left external carotid artery 5. Right vertebral could not be identified. Normal antegrade flow in the left vertebral artery. Head MRI 09/28/19 00:00 IMPRESSION: SEVERAL AREAS OF RESTRICTED DIFFUSION CONSISTENT WITH RECENT INFARCT. AREAS OF INVOLVEMENT INCLUDE THE CORTICAL SURFACES OF THE RIGHT AND LEFT OCCIPITAL LOBE, SUBCORTICAL WHITE MATTER OF THE POSTERIOR LEFT PARIETAL LOBE, AND IN THE RIGHT THALAMUS. POSSIBLE SIMILAR FINDING IN THE RIGHT CEREBELLAR HEMISPHERE. EVIDENCE OF ACUTE STROKE: YES. RIGHT AND LEFT POSTERIOR CIRCULATION AND RIGHT AND LEFT MIDDLE CEREBRAL ARTERY. Assessment and Plan - Diagnosis (1) Drug overdose, multiple drugs Qualifiers: Encounter type: initial encounter Injury intent: undetermined intent Qualified Code(s): T50.914A - Poisoning by multiple unspecified drugs, medicaments and biological substances, undetermined, initial encounter Is this a current diagnosis for this admission?: Yes Plan: Admitted 09/25/2019 for altered mental status and acute respiratory failure with hypoxia requiring intubation. Per roommate, the patient likely overdosed on approximately 42 Seroquel pills (unknown dose). Poison control following. EKG this morning shows sinus rhythm. QTc interval improved to 499. Mental health services are consulted. Avoid QTC prolonging agents. Continue to monitor on telemetry. Supportive care. 09/29/2019-stable at this time. Patient awake alert. Continue supportive care. Await mental health consultation 09/30/2019-stable continue supportive care await mental health consultation 10/01/2019-stable continue to follow 10/02/2019-remains in bed no complaints. Continue to follow 10/03/2019-stable no complaints this a.m. we will follow (2) Acute encephalopathy Is this a current diagnosis for this admission?: Yes Plan: 09/29/2019-stable - continue to follow 10/01/2019-stable. Unfortunately I believe this last overdose has taken a toll. Not sure how much more past this point she will get her baseline. We will continue to follow 10/02/2019-stable continue to follow 10/03/2019-patient at baseline at this time stable (3) Diarrhea Qualifiers: Diarrhea type: functional diarrhea Qualified Code(s): K59.1 - Functional diarrhea Is this a current diagnosis for this admission?: Yes Plan: Stool culture pending. Start lactobacillus twice daily. Continue Lomotil as needed. 09/29/2019-continue Lomotil as needed -continue Lomotil as needed 10/01/2019-stable continue to follow 10/03/2019-resolved. Stable (4) Elevated troponin Is this a current diagnosis for this admission?: Yes Plan: Patient is chest pain-free. Troponin admission 0.807; peaked at 10.9, now trending down. EKG reveals Prolonged QTC, though decreased from time of admission. Echocardiogram reveals LVEF greater than 65% with mild diastolic dysfunction, normal ventricular wall motion Continue daily aspirin and statin therapy. Continue monitor on cardiac telemetry. 09/29/2019-stable. Continue daily aspirin and statin. Continue telemetry 09/30/2019-stable continue current therapy 10/01/2019-stable continue aspirin and statin 10/03/2019-stable continue aspirin and statin therapy (5) Acute kidney injury Is this a current diagnosis for this admission?: Yes Plan: Resolved. And 1.13/BUN 17; down from 2.42/29 Likely secondary to hypotension Continue IV fluids until taking adequate p.o. fluids. 09/29/2019-stable continue to follow 09/30/2019-stable continue to follow continue to encourage p.o. intake 10/01/2019-stable continue to follow 10/02/2019-stable continue to follow 09/23/2019-stable (6) Acute respiratory failure with hypoxemia Is this a current diagnosis for this admission?: Yes Plan: Resolved. Secondary to substance overdose. Patient was intubated on 09/24/2019; extubated 09/26/2019. Continue supplemental oxygen as needed to maintain saturations. Continue scheduled and as needed nebulizer treatments. 09/29/2019-stable continue submental oxygen as needed -stable continue supplemental oxygen 10/01/2019-stable continue supplemental oxygen 10/02/2019-stable 10/03/2019-stable continue to follow (7) UTI (urinary tract infection) Qualifiers: Urinary tract infection type: catheter-associated UTI Indwelling urinary catheter type: indwelling urethral catheter Encounter type: initial encounter Qualified Code(s): T83.511A - Infection and inflammatory reaction due to indwelling urethral catheter, initial encounter; N39.0 - Urinary tract infection, site not specified Is this a current diagnosis for this admission?: Yes Plan: Urinalysis positive for UTI. Urine culture pending. Empirically started on IV Rocephin. 09/29/2019-continue Rocephin until cultures return 09/30/2019-continue Rocephin await culture 10/02/2019-cultures show Proteus and Klebsiella species. Both susceptible to Cipro. Place patient on Cipro at this time will get an EKG to evaluate QT interval. 10/03/2019-at this time QT interval is 460. We will continue Cipro (8) Hyperkalemia Is this a current diagnosis for this admission?: Yes Plan: K 5.3 Continue IVF. Start Veltassa 09/29/2019-awaiting a.m. labs. Make change in plan of care at that time. 09/30/2019-stable at this time continue to follow 10/01/2019-stable continue to follow 10/02/2019-stable continue to follow 10/03/2019-stable repeat labs in the a.m. - Time Time Spent with patient: 15-24 minutes - Inpatient Certification Based on my medical assessment, after consideration of the patient's co morbidities, presenting symptoms, or acuity I expect that the services needed warrant INPATIENT care.: Yes I certify that my determination is in accordance with my understanding of Medicare's requirements for reasonable and necessary INPATIENT services [42 CFR 412.3e].: Yes Medical Necessity: Significant Comorbidiites Make Outpatient Treatment Too Risky, Need Close Monitoring Due to Risk of Patient Decompensation
[2019-10-03] MEDS: INSULIN LISPRO 100 UNIT/ML 3 ML VIAL SUBCUT SCH ×4 (08:38→21:33)
[2019-10-03] MEDS: DOCUSATE SODIUM 100 MG CAPSULE PO SCH ×2 (09:03→17:29)
[2019-10-03] MEDS: FAMOTIDINE 20 MG TABLET PO SCH (09:03)
[2019-10-03] MEDS: SULFAMETHOXAZOLE/TRIMETHOPRIM 800-160 MG TABLET PO SCH ×2 (09:03→21:41)
[2019-10-03] MEDS: DULOXETINE HCL 30 MG CAPSULE.DR PO SCH (09:03)
[2019-10-03] MEDS: METOPROLOL SUCCINATE 25 MG TAB.SR.24H PO SCH ×2 (09:03→21:41)
[2019-10-03] MEDS: AMLODIPINE BESYLATE 10 MG TABLET PO SCH (09:03)
[2019-10-03] MEDS: ENOXAPARIN SODIUM INJ 30 MG/0.3 ML DISP.SYRIN SUBCUT SCH (09:03)
[2019-10-03] MEDS: CLOPIDOGREL BISULFATE 75 MG TABLET PO SCH (09:03)
[2019-10-03] MEDS: LACTOBACILLUS ACIDOPHILUS 250 MG TAB PO SCH ×2 (09:03→17:29)
[2019-10-03 09:55] LABS: ANION GAP 9 (5-19); BLOOD UREA NITROGEN 16 mg/dL (7-20); CALCIUM 9.1 mg/dL (8.4-10.2); CARBON DIOXIDE 22 mmol/L (22-30); CHLORIDE 104 mmol/L (98-107); GLUCOSE 182 mg/dL (75-110); POTASSIUM 4.8 mmol/L (3.6-5.0)
--- NOTE | 2019-10-03 11:43 | EKG REPORT ---
SEVERITY:- ABNORMAL ECG - SINUS RHYTHM INFERIOR INFARCT, OLD : Confirmed by: Catie Childers MD 03-Oct-2019 11:43:00
[2019-10-03] MEDS: PATIROMER 8.4 GM SUSP PACKET PO SCH (17:21)
[2019-10-03] MEDS: AMITRIPTYLINE HCL 25 MG TABLET PO SCH (21:41)
[2019-10-03] MEDS: ATORVASTATIN CALCIUM 80 MG TABLET PO SCH (21:41)
[2019-10-03] MEDS: LISINOPRIL 10 MG TABLET PO SCH (21:41)
[2019-10-04 04:44] LABS: HEMOGLOBIN 12.5 g/dL (12.0-15.5); MEAN CORPUSCULAR HGB CONC 33.8 g/dL (32.0-36.0); MEAN CORPUSCULAR VOLUME 83 fl (80-97); PLATELET COUNT 497 10^3/uL (150-450); RED BLOOD COUNT 4.46 10^6/uL (3.72-5.28); WHITE BLOOD COUNT 8.3 10^3/uL (4.0-10.5)
[2019-10-04] MEDS: LEVOTHYROXINE SODIUM 0.1 MG TABLET PO SCH (05:29)
[2019-10-04] MEDS: LEVOTHYROXINE SODIUM 0.075 MG TABLET PO SCH (05:29)
[2019-10-04] MEDS: INSULIN LISPRO 100 UNIT/ML 3 ML VIAL SUBCUT SCH ×4 (08:02→23:46)
[2019-10-04] MEDS: DULOXETINE HCL 30 MG CAPSULE.DR PO SCH (08:06)
--- NOTE | 2019-10-04 08:12 | PDOC PROGRESS REPORT ---
Subjective Progress Note for:: 10/04/19 Subjective:: 09/29/2019-no complaints this a.m. 09/30/2019-no complaints 10/01/2019-no complaints this a.m. 10/02/2019-no complaints 10/03/2019-no complaints this a.m. 10/04/2019-no complaints Reason For Visit: AMS,LONG QT,OVERDOSE Physical Exam Vital Signs: Temp Pulse Resp BP Pulse Ox 98.2 F 63 18 143/70 H 99 10/04/19 07:33 10/04/19 07:33 10/04/19 07:33 10/04/19 07:33 10/04/19 07:33 Intake & Output 10/03/19 10/04/19 10/05/19 06:59 06:59 06:59 Intake Total 410 720 Output Total 1400 1075 Balance -990 -355 Weight 54.2 kg 54 kg General appearance: PRESENT: no acute distress, well-developed, well-nourished Neck exam: ABSENT: carotid bruit, JVD, lymphadenopathy, thyromegaly Respiratory exam: PRESENT: clear to auscultation jaqueline. ABSENT: rales, rhonchi, wheezes Cardiovascular exam: PRESENT: RRR. ABSENT: diastolic murmur, rubs, systolic murmur Pulses: PRESENT: +1 pedal pulses bilateral Vascular exam: PRESENT: normal capillary refill GI/Abdominal exam: PRESENT: normal bowel sounds, soft. ABSENT: distended, guarding, mass, organolmegaly, rebound, tenderness Extremities exam: PRESENT: full ROM. ABSENT: calf tenderness, clubbing, pedal edema Neurological exam: PRESENT: alert, awake Psychiatric exam: PRESENT: appropriate affect, normal mood. ABSENT: homicidal ideation, suicidal ideation Skin exam: PRESENT: dry, intact, warm. ABSENT: cyanosis, rash Results Laboratory Results: 10/04/19 04:08 10/03/19 09:30 10/03/19 10/04/19 09:30 04:08 WBC 8.3 RBC 4.46 Hgb 12.5 Hct 37.0 MCV 83 MCH 28.0 MCHC 33.8 RDW 16.0 H Plt Count 497 H Sodium 134.6 L Potassium 4.8 Chloride 104 Carbon Dioxide 22 Anion Gap 9 BUN 16 Creatinine 1.16 Est GFR ( Amer) 58 L Glucose 182 H Calcium 9.1 11/11/19 16:21 Blood Blood Culture - Final NO GROWTH IN 5 DAYS 09/28/19 16:00 Blood Blood Culture - Final NO GROWTH IN 5 DAYS 09/24/19 09/24/19 09/25/19 22:35 22:35 07:05 Creatine Kinase 84 709 H Troponin I 0.807 09/25/19 09/25/19 09/25/19 10:33 10:33 18:44 Creatine Kinase 896 H Troponin I 10.900 7.170 09/26/19 09/28/19 09/29/19 03:29 16:21 00:43 Creatine Kinase Troponin I 3.480 0.675 0.676 09/29/19 07:40 Creatine Kinase Troponin I 0.635 Impressions: Head CT 09/24/19 23:12 IMPRESSION: No acute findings. Chest X-Ray 09/24/19 23:13 IMPRESSION: Endotracheal tube tip is located within the trachea, approximately 2.8 cm above the larisa. Otherwise, clear lungs. copyright 2011 [employer] All Rights Reserved Brain MRI with MRA 09/28/19 00:00 IMPRESSION: NORMAL MRA OF THE [place]. Carotid Doppler Study 09/28/19 00:00 IMPRESSION: 1. Atherosclerosis 2. Greater than 70% stenosis of the right internal carotid artery, as seen on 05/29/2019 3. No significant stenosis of the left internal carotid artery 4. At least 50-69% stenosis of the left external carotid artery 5. Right vertebral could not be identified. Normal antegrade flow in the left vertebral artery. Head MRI 09/28/19 00:00 IMPRESSION: SEVERAL AREAS OF RESTRICTED DIFFUSION CONSISTENT WITH RECENT INFARCT. AREAS OF INVOLVEMENT INCLUDE THE CORTICAL SURFACES OF THE RIGHT AND LEFT OCCIPITAL LOBE, SUBCORTICAL WHITE MATTER OF THE POSTERIOR LEFT PARIETAL LOBE, AND IN THE RIGHT THALAMUS. POSSIBLE SIMILAR FINDING IN THE RIGHT CER EBELLAR HEMISPHERE. EVIDENCE OF ACUTE STROKE: YES. RIGHT AND LEFT POSTERIOR CIRCULATION AND RIGHT AND LEFT MIDDLE CEREBRAL ARTERY. Assessment and Plan - Diagnosis (1) Drug overdose, multiple drugs Qualifiers: Encounter type: initial encounter Injury intent: undetermined intent Qualified Code(s): T50.914A - Poisoning by multiple unspecified drugs, medicam ents and biological substances, undetermined, initial encounter Is this a current diagnosis for this admission?: Yes Plan: Admitted 09/25/2019 for altered mental status and acute respiratory failure with hypoxia requiring intubation. Per roommate, the patient likely overdosed on approximately 42 Seroquel pills (unknown dose). Poison control following. EKG this morning shows sinus rhythm. QTc interval improved to 499. Mental health services are consulted. Avoid QTC prolonging agents. Continue to monitor on telemetry. Supportive care. 09/29/2019-stable at this time. Patient awake alert. Continue supportive care. Await mental health consultation 09/30/2019-stable continue supportive care await mental health consultation 10/01/2019-stable continue to follow 10/02/2019-remains in bed no complaints. Continue to follow 10/03/2019-stable no complaints this a.m. we will follow 10/04/2019-stable no complications at this time QTc interval is down to 460. (2) Acute encephalopathy Is this a current diagnosis for this admission?: Yes Plan: 09/29/2019-stable -stable continue to follow 10/01/2019-stable. Unfortunately I believe this last overdose has taken a toll. Not sure how much more past this point she will get her baseline. We will continue to follow 10/02/2019-stable continue to follow 10/03/2019-patient at baseline at this time stable 10/04/2019-at baseline stable (3) Diarrhea Qualifiers: Diarrhea type: functional diarrhea Qualified Code(s): K59.1 - Functional diarrhea Is this a current diagnosis for this admission?: Yes Plan: Stool culture pending. Start lactobacillus twice daily. Continue Lomotil as needed. 09/29/2019-continue Lomotil as needed -continue Lomotil as needed 10/01/2019-stable continue to follow -stable 10/03/2019-resolved. Stable 10/04/2019-stable (4) Elevated troponin Is this a current diagnosis for this admission?: Yes Plan: Patient is chest pain-free. Troponin admission 0.807; peaked at 10.9, now trending down. EKG reveals Prolonged QTC, though decreased from time of admission. Echocardiogram reveals LVEF greater than 65% with mild diastolic dysfunction, normal ventricular wall motion Continue daily aspirin and statin therapy. Continue monitor on cardiac telemetry. 09/29/2019-stable. Continue daily aspirin and statin. Continue telemetry 09/30/2019-stable continue current therapy 10/01/2019-stable continue aspirin and statin -stable 10/03/2019-stable continue aspirin and statin therapy 10/04/2019-stable (5) Acute kidney injury Is this a current diagnosis for this admission?: Yes Plan: Resolved. And 1.13/BUN 17; down from 2.42/29 Likely secondary to hypotension Continue IV fluids until taking adequate p.o. fluids. 09/29/2019-stable continue to follow 09/30/2019-stable continue to follow continue to encourage p.o. intake 10/01/2019-stable continue to follow 10/02/2019-stable continue to follow 10/03/2019-stable 10/04/2019-stable (6) Acute respiratory failure with hypoxemia Is this a current diagnosis for this admission?: Yes Plan: Resolved. Secondary to substance overdose. Patient was intubated on 09/24/2019; extubated 09/26/2019. Continue supplemental oxygen as needed to maintain saturations. Continue scheduled and as needed nebulizer treatments. 09/29/2019-stable continue submental oxygen as needed -stable continue supplemental oxygen 10/01/2019-stable continue supplemental oxygen 10/02/2019-stable 10/03/2019-stable continue to follow 10/04/2019-stable (7) UTI (urinary tract infection) Qualifiers: Urinary tract infection type: catheter-associated UTI Indwelling urinary catheter type: indwelling urethral catheter Encounter type: initial encounter Qualified Code(s): T83.511A - Infection and inflammatory reaction due to indwelling urethral catheter, initial encounter; N39.0 - Urinary tract infection, site not specified Is this a current diagnosis for this admission?: Yes Plan: Urinalysis positive for UTI. Urine culture pending. Empirically started on IV Rocephin. 09/29/2019-continue Rocephin until cultures return 09/30/2019-continue Rocephin await culture 10/02/2019-cultures show Proteus and Klebsiella species. Both susceptible to Cipro. Place patient on Cipro at this time will get an EKG to evaluate QT interval. 10/03/2019-at this time QT interval is 460. We will continue Cipro 10/04/2019-continue Cipro (8) Hyperkalemia Is this a current diagnosis for this admission?: Yes Plan: K 5.3 Continue IVF. Start Veltassa 09/29/2019-awaiting a.m. labs. Make change in plan of care at that time. 09/30/2019-stable at this time continue to follow 10/01/2019-stable continue to follow 10/02/2019-stable continue to follow 10/03/2019-stable repeat labs in the a.m. 10/04/2019-stable - Time Time Spent with patient: 15-24 minutes
[2019-10-04] MEDS: DOCUSATE SODIUM 100 MG CAPSULE PO SCH ×2 (09:52→17:11)
[2019-10-04] MEDS: SULFAMETHOXAZOLE/TRIMETHOPRIM 800-160 MG TABLET PO SCH ×2 (09:52→21:16)
[2019-10-04] MEDS: ENOXAPARIN SODIUM INJ 30 MG/0.3 ML DISP.SYRIN SUBCUT SCH (09:52)
[2019-10-04] MEDS: FAMOTIDINE 20 MG TABLET PO SCH (09:52)
[2019-10-04] MEDS: AMLODIPINE BESYLATE 10 MG TABLET PO SCH (09:52)
[2019-10-04] MEDS: METOPROLOL SUCCINATE 25 MG TAB.SR.24H PO SCH ×2 (09:52→21:18)
[2019-10-04] MEDS: CLOPIDOGREL BISULFATE 75 MG TABLET PO SCH (09:52)
[2019-10-04] MEDS: LACTOBACILLUS ACIDOPHILUS 250 MG TAB PO SCH ×2 (09:52→17:11)
[2019-10-04] MEDS: AMITRIPTYLINE HCL 25 MG TABLET PO SCH (21:15)
[2019-10-04] MEDS: ATORVASTATIN CALCIUM 80 MG TABLET PO SCH (21:15)
[2019-10-04] MEDS: LISINOPRIL 10 MG TABLET PO SCH (21:16)
[2019-10-05] MEDS: LEVOTHYROXINE SODIUM 0.075 MG TABLET PO SCH (05:53)
[2019-10-05] MEDS: LEVOTHYROXINE SODIUM 0.1 MG TABLET PO SCH (05:53)
[2019-10-05 06:54] LABS: HEMATOCRIT 38.4 % (36.0-47.0); HEMOGLOBIN 12.5 g/dL (12.0-15.5); MEAN CORPUSCULAR HEMOGLOBIN 27.3 pg (27.0-33.4); MEAN CORPUSCULAR HGB CONC 32.5 g/dL (32.0-36.0); MEAN CORPUSCULAR VOLUME 84 fl (80-97); PLATELET COUNT 486 10^3/uL (150-450); RED BLOOD COUNT 4.58 10^6/uL (3.72-5.28); RED CELL DISTRIBUTION WIDTH 16.2 % (11.5-14.0); WHITE BLOOD COUNT 8.6 10^3/uL (4.0-10.5)
[2019-10-05] MEDS: INSULIN LISPRO 100 UNIT/ML 3 ML VIAL SUBCUT SCH ×4 (08:19→21:36)
[2019-10-05 08:55] LABS: ANION GAP 7 (5-19); BLOOD UREA NITROGEN 14 mg/dL (7-20); CALCIUM 9.2 mg/dL (8.4-10.2); CARBON DIOXIDE 25 mmol/L (22-30); CHLORIDE 102 mmol/L (98-107); GLUCOSE 142 mg/dL (75-110); POTASSIUM 4.6 mmol/L (3.6-5.0)
--- NOTE | 2019-10-05 08:55 | PDOC PROGRESS REPORT ---
Subjective Progress Note for:: 10/05/19 Subjective:: 09/29/2019-no complaints this a.m. 09/30/2019-no complaints 10/01/2019-no complaints this a.m. 10/02/2019-no complaints 10/03/2019-no complaints this a.m. 10/04/2019-no complaints 11 -no complaints this a.m. Reason For Visit: AMS,LONG QT,OVERDOSE Physical Exam Vital Signs: Temp Pulse Resp BP Pulse Ox 98.1 F 69 17 127/62 H 100 10/05/19 07:38 10/05/19 07:38 10/05/19 07:38 10/05/19 07:38 10/05/19 07:38 Intake & Output 10/04/19 10/05/19 10/06/19 06:59 06:59 06:59 Intake Total 720 360 Output Total 1075 925 Balance -355 -565 Weight 54 kg 54 kg General appearance: PRESENT: no acute distress, well-developed, well-nourished Neck exam: ABSENT: carotid bruit, JVD, lymphadenopathy, thyromegaly Respiratory exam: PRESENT: accessory muscle use Cardiovascular exam: PRESENT: RRR. ABSENT: diastolic murmur, rubs, systolic murmur Pulses: PRESENT: +1 pedal pulses bilateral Vascular exam: PRESENT: normal capillary refill GI/Abdominal exam: PRESENT: normal bowel sounds, soft. ABSENT: distended, guarding, mass, organolmegaly, rebound, tenderness Extremities exam: PRESENT: full ROM. ABSENT: calf tenderness, clubbing, pedal edema Neurological exam: PRESENT: awake Psychiatric exam: PRESENT: appropriate affect, normal mood. ABSENT: homicidal ideation, suicidal ideation Skin exam: PRESENT: dry, intact, warm. ABSENT: cyanosis, rash Results Laboratory Results: 10/05/19 06:20 10/05/19 06:20 WBC 8.6 RBC 4.58 Hgb 12.5 Hct 38.4 MCV 84 MCH 27.3 MCHC 32.5 RDW 16.2 H Plt Count 486 H 09/24/19 09/24/19 09/25/19 22:35 22:35 07:05 Creatine Kinase 84 709 H Troponin I 0.807 09/25/19 09/25/19 09/25/19 10:33 10:33 18:44 Creatine Kinase 896 H Troponin I 10.900 7.170 09/26/19 09/28/19 09/29/19 03:29 16:21 00:43 Creatine Kinase Troponin I 3.480 0.675 0.676 09/29/19 07:40 Creatine Kinase Troponin I 0.635 Impressions: Head CT 09/24/19 23:12 IMPRESSION: No acute findings. Chest X-Ray 09/24/19 23:13 IMPRESSION: Endotracheal tube tip is located within the trachea, approximately 2.8 cm above the larisa. Otherwise, clear lungs. copyright 2010 [employer] All Rights Reserved Brain MRI with MRA 09/28/19 00:00 IMPRESSION: NORMAL MRA OF THE [place]. Carotid Doppler Study 09/28/19 00:00 IMPRESSION: 1. Atherosclerosis 2. Greater than 70% stenosis of the right internal carotid artery, as seen on 05/29/2019 3. No significant stenosis of the left internal carotid artery 4. At least 50-69% stenosis of the left external carotid artery 5. Right vertebral could not be identified. Normal antegrade flow in the left vertebral artery. Head MRI 09/28/19 00:00 IMPRESSION: SEVERAL AREAS OF RESTRICTED DIFFUSION CONSISTENT WITH RECENT INFARCT. AREAS OF INVOLVEMENT INCLUDE THE CORTICAL SURFACES OF THE RIGHT AND LEFT OCCIPITAL LOBE, SUBCORTICAL WHITE MATTER OF THE POSTERIOR LEFT PARIETAL LOBE, AND IN THE RIGHT THALAMUS. POSSIBLE SIMILAR FINDING IN THE RIGHT CEREBELLAR HEMISPHERE. EVIDENCE OF ACUTE STROKE: YES. RIGHT AND LEFT POSTERIOR CIRCULATION AND RIGHT AND LEFT MIDDLE CEREBRAL ARTERY. Assessment and Plan - Diagnosis (1) Drug overdose, multiple drugs Qualifiers: Encounter type: initial encounter Injury intent: undetermined intent Qualified Code(s): T50.914A - Poisoning by multiple unspecified drugs, medicaments and biological substances, undetermined, initial encounter Is this a current diagnosis for this admission?: Yes Plan: Admitted 09/25/2019 for altered mental status and acute respiratory failure with hypoxia requiring intubation. Per roommate, the patient likely overdosed on approximately 42 Seroquel pills (unknown dose). Poison control following. EKG this morning shows sinus rhythm. QTc interval improved to 499. Mental health services are consulted. Avoid QTC prolonging agents. Continue to monitor on telemetry. Supportive care. 09/29/2019-stable at this time. Patient awake alert. Continue supportive care. Await mental health consultation 09/30/2019-stable continue supportive care await mental health consultation 10/01/2019-stable continue to follow 10/02/2019-remains in bed no complaints. Continue to follow 10/03/2019-stable no complaints this a.m. we will follow 10/04/2019-stable no complications at this time QTc interval is down to 460. 10/05/2019-stable continue to follow. (2) Acute encephalopathy Is this a current diagnosis for this admission?: Yes Plan: 09/29/2019-stable -stable continue to follow 10/01/2019-stable. Unfortunately I believe this last overdose has taken a toll. Not sure how much more past this point she will get her baseline. We will continue to follow 10/02/2019- continue to follow 10/03/2019-patient at baseline at this time stable 10/04/2019-at baseline stable 10/05/2019-stable baseline (3) Diarrhea Qualifiers: Diarrhea type: functional diarrhea Qualified Code(s): K59.1 - Functional diarrhea Is this a current diagnosis for this admission?: Yes Plan: Stool culture pending. Start lactobacillus twice daily. Continue Lomotil as needed. 09/29/2019-continue Lomotil as needed -continue Lomotil as needed 10/01/2019- continue to follow 10/03/2019-resolved. Stable 10/04/2019-stable 10/05/2019-stable (4) Elevated troponin Is this a current diagnosis for this admission?: Yes Plan: Patient is chest pain-free. Troponin admission 0.807; peaked at 10.9, now trending down. EKG reveals Prolonged QTC, though decreased from time of admission. Echocardiogram reveals LVEF greater than 65% with mild diastolic dysfunction, normal ventricular wall motion Continue daily aspirin and statin therapy. Continue monitor on cardiac telemetry. 09/29/2019-stable. Continue daily aspirin and statin. Continue telemetry 09/30/2019-stable continue current therapy 10/01/2019-stable continue aspirin and statin -10/03/2019-stable continue aspirin and statin therapy 10/04/2019-stable 10/05/2019-stable continue to follow (5) Acute kidney injury Is this a current diagnosis for this admission?: Yes Plan: Resolved. And 1.13/BUN 17; down from 2.42/29 Likely secondary to hypotension Continue IV fluids until taking adequate p.o. fluids. 09/29/2019-stable continue to follow 09/30/2019-stable continue to follow continue to encourage p.o. intake 10/01/2019-stable continue to follow 10/02/2019-stable continue to follow 10/03/2019-stable 10/04/2019-stable 10/05/2019-stable (6) Acute respiratory failure with hypoxemia Is this a current diagnosis for this admission?: Yes Plan: Resolved. Secondary to substance overdose. Patient was intubated on 09/24/2019; extubated 09/26/2019. Continue supplemental oxygen as needed to maintain saturations. Continue scheduled and as needed nebulizer treatments. 09/29/2019-stable continue submental oxygen as needed -stable continue supplemental oxygen 10/01/2019-stable continue supplemental oxygen 10/02/2019-stable 10/03/2019-stable continue to follow 10/04/2019-stable 10/05/2019-stable (7) UTI (urinary tract infection) Qualifiers: Urinary tract infection type: catheter-associated UTI Indwelling urinary catheter type: indwelling urethral catheter Encounter type: initial encounter Qualified Code(s): T83.511A - Infection and inflammatory reaction due to indwelling urethral catheter, initial encounter; N39.0 - Urinary tract infection, site not specified Is this a current diagnosis for this admission?: Yes Plan: Urinalysis positive for UTI. Urine culture pending. Empirically started on IV Rocephin. 09/29/2019-continue Rocephin until cultures return 09/30/2019-continue Rocephin await culture 10/02/2019-cultures show Proteus and Klebsiella species. Both susceptible to Cipro. Place patient on Cipro at this time will get an EKG to evaluate QT interval. 10/03/2019-at this time QT interval is 460. We will continue Cipro 10/04/2019-continue Cipro 10/05/2019-remains on Cipro (8) Hyperkalemia Is this a current diagnosis for this admission?: Yes Plan: K 5.3 Continue IVF. Start Veltassa 09/29/2019-awaiting a.m. labs. Make change in plan of care at that time. 09/30/2019-stable at this time continue to follow 10/01/2019-stable continue to follow 10/02/2019-stable continue to follow 10/03/2019-stable repeat labs in the a.m. 10/04/2019-stable 10/05/2019-stable - Time Time Spent with patient: 15-24 minutes - Inpatient Certification Based on my medical assessment, after consideration of the patient's comorbidities, presenting symptoms, or acuity I expect that the services needed warrant INPATIENT care.: Yes I certify that my determination is in accordance with my understanding of Medicare's requirements for reasonable and necessary INPATIENT services [42 CFR 412.3e].: Yes Medical Necessity: Significant Comorbidiites Make Outpatient Treatment Too Risky, Need Close Monitoring Due to Risk of Patient Decompensation
[2019-10-05] MEDS: SULFAMETHOXAZOLE/TRIMETHOPRIM 800-160 MG TABLET PO SCH ×2 (09:05→21:35)
[2019-10-05] MEDS: FAMOTIDINE 20 MG TABLET PO SCH (09:05)
[2019-10-05] MEDS: DOCUSATE SODIUM 100 MG CAPSULE PO SCH ×2 (09:05→17:12)
[2019-10-05] MEDS: CLOPIDOGREL BISULFATE 75 MG TABLET PO SCH (09:05)
[2019-10-05] MEDS: GABAPENTIN 400 MG CAPSULE PO SCH ×4 (09:05→21:36)
[2019-10-05] MEDS: ENOXAPARIN SODIUM INJ 30 MG/0.3 ML DISP.SYRIN SUBCUT SCH (09:05)
[2019-10-05] MEDS: LACTOBACILLUS ACIDOPHILUS 250 MG TAB PO SCH ×2 (09:05→17:12)
[2019-10-05] MEDS: DULOXETINE HCL 30 MG CAPSULE.DR PO SCH (09:05)
[2019-10-05] MEDS: METOPROLOL SUCCINATE 25 MG TAB.SR.24H PO SCH (09:05)
[2019-10-05] MEDS: AMLODIPINE BESYLATE 10 MG TABLET PO SCH (09:05)
[2019-10-05 09:10] LABS: APPEARANCE,URINE SLIGHTLY-CLOUDY; BILIRUBIN,URINE NEGATIVE (NEGATIVE); COLOR,URINE YELLOW; GLUCOSE, URINE NEGATIVE (NEGATIVE); KETONES,URINE NEGATIVE (NEGATIVE); LEUKOCYTE ESTERASE,URINE SMALL (NEGATIVE); NITRITE,URINE NEGATIVE (NEGATIVE); PROTEIN,URINE 30 mg/dL (NEGATIVE); URINE SPECIFIC GRAVITY 1.012; UROBILINOGEN,URINE NEGATIVE mg/dL (<2.0)
[2019-10-05] MEDS: LISINOPRIL 10 MG TABLET PO SCH (21:35)
[2019-10-05] MEDS: AMITRIPTYLINE HCL 25 MG TABLET PO SCH (21:35)
[2019-10-05] MEDS: ATORVASTATIN CALCIUM 80 MG TABLET PO SCH (21:36)
[2019-10-05] MEDS: METOPROLOL SUCCINATE 50 MG TAB.SR.24H PO SCH (21:36)
[2019-10-06] MEDS: LEVOTHYROXINE SODIUM 0.075 MG TABLET PO SCH (06:10)
[2019-10-06] MEDS: LEVOTHYROXINE SODIUM 0.1 MG TABLET PO SCH (06:10)
[2019-10-06] MEDS: DULOXETINE HCL 30 MG CAPSULE.DR PO SCH (07:55)
[2019-10-06] MEDS: INSULIN LISPRO 100 UNIT/ML 3 ML VIAL SUBCUT SCH ×4 (08:58→22:09)
[2019-10-06] MEDS: DOCUSATE SODIUM 100 MG CAPSULE PO SCH ×2 (09:15→17:14)
[2019-10-06] MEDS: AMLODIPINE BESYLATE 10 MG TABLET PO SCH (09:15)
[2019-10-06] MEDS: LACTOBACILLUS ACIDOPHILUS 250 MG TAB PO SCH ×2 (09:15→17:13)
[2019-10-06] MEDS: ENOXAPARIN SODIUM INJ 30 MG/0.3 ML DISP.SYRIN SUBCUT SCH (09:16)
[2019-10-06] MEDS: CLOPIDOGREL BISULFATE 75 MG TABLET PO SCH (09:16)
[2019-10-06] MEDS: METOPROLOL SUCCINATE 50 MG TAB.SR.24H PO SCH ×2 (09:16→22:08)
[2019-10-06] MEDS: FAMOTIDINE 20 MG TABLET PO SCH (09:16)
[2019-10-06] MEDS: GABAPENTIN 400 MG CAPSULE PO SCH ×4 (09:16→22:08)
--- NOTE | 2019-10-06 14:17 | PSYCHOLOGICAL NOTE ---
Psych Note - Psych Note Date seen by psych provider: 10/06/19 Time seen by psych provider: 13:45 Psych Note: Clinician checked in at nursing station attempting to meet with patient. Clinician was asked to join the interdisciplinary team meeting in session. Clinician was informed the Doctor believes the patient is competent to be discharged. Clinician was informed there was no need to see patient. Please reconsult if needed.
--- NOTE | 2019-10-06 17:17 | PDOC PROGRESS REPORT ---
Subjective Progress Note for:: 10/06/19 Subjective:: Patient says she is feels fine today. Patient is insistent that she wants to go home. Patient states she was not trying to commit suicide at a time when she overdosed on her psych medications. Patient is currently able to voice understanding and consequences of what is explained to her. Reason For Visit: AMS,LONG QT,OVERDOSE Physical Exam Vital Signs: Temp Pulse Resp BP Pulse Ox 98.4 F 62 18 90/65 L 100 10/06/19 11:57 10/06/19 14:00 10/06/19 11:57 10/06/19 11:57 10/06/19 11:57 Intake & Output 10/05/19 10/06/19 10/07/19 06:59 06:59 06:59 Intake Total 360 460 200 Output Total 925 Balance -565 460 200 Weight 54 kg 52.3 kg General appearance: PRESENT: no acute distress, cooperative Respiratory exam: PRESENT: clear to auscultation jaqueline, symmetrical, unlabored. ABSENT: tachypnea, wheezes Cardiovascular exam: PRESENT: RRR, +S1, +S2. ABSENT: tachycardia GI/Abdominal exam: PRESENT: normal bowel sounds, soft. ABSENT: guarding, rebound, rigid, tenderness Neurological exam: PRESENT: alert, awake, oriented to person, oriented to place, oriented to situation. ABSENT: oriented to time, motor sensory deficit, aphasic Psychiatric exam: PRESENT: anxious. ABSENT: agitated Results Laboratory Results: 10/05/19 06:20 10/05/19 06:20 09/24/19 09/24/19 09/25/19 22:35 22:35 07:05 Creatine Kinase 84 709 H Troponin I 0.807 09/25/19 09/25/19 09/25/19 10:33 10:33 18:44 Creatine Kinase 896 H Troponin I 10.900 7.170 09/26/19 09/28/19 09/29/19 03:29 16:21 00:43 Creatine Kinase Troponin I 3.480 0.675 0.676 09/29/19 07:40 Creatine Kinase Troponin I 0.635 Impressions: Head CT 09/24/19 23:12 IMPRESSION: No acute findings. Chest X-Ray 09/24/19 23:13 IMPRESSION: Endotracheal tube tip is located within the trachea, approximately 2.8 cm above the larisa. Otherwise, clear lungs. copyright 2010 [email or web address]- All Rights Reserved Brain MRI with MRA 09/28/19 00:00 IMPRESSION: NORMAL MRA OF THE [place]. Carotid Doppler Study 09/28/19 00:00 IMPRESSION: 1. Atherosclerosis 2. Greater than 70% stenosis of the right internal carotid artery, as seen on 05/29/2019 3. No significant stenosis of the left internal carotid artery 4. At least 50-69% stenosis of the left external carotid artery 5. Right vertebral could not be identified. Normal antegrade flow in the left vertebral artery. Head MRI 09/28/19 00:00 IMPRESSION: SEVERAL AREAS OF RESTRICTED DIFFUSION CONSISTENT WITH RECENT INFAR CT. AREAS OF INVOLVEMENT INCLUDE THE CORTICAL SURFACES OF THE RIGHT AND LEFT OCCIPITAL LOBE, SUBCORTICAL WHITE MATTER OF THE POSTERIOR LEFT PARIETAL LOBE, AND IN THE RIGHT THALAMUS. POSSIBLE SIMILAR FINDING IN THE RIGHT CEREBELLAR HEMISPHERE. EVIDENCE OF ACUTE STROKE: YES. RIGHT AND LEFT POSTERIOR CIRCULATION AND RIGHT AND LEFT MIDDLE CEREBRAL ARTERY. Assessment and Plan - Diagnosis (1) Acute encephalopathy Is this a current diagnosis for this admission?: Yes Plan: 09/29/2019-stable 11 ,-stable continue to follow 10/01/2019-stable. Unfortunately I believe this last overdose has taken a toll. Not sure how much more past this point she will get her baseline. We will continue to follow 10/02/2019-stable continue to follow 10/03/2019-patient at baseline at this time stable 10/04/2019-at baseline stable 10/05/2019-stable baseline 10/06/2018-today, patient seems to have only very minimal confusion on my assessment. Patient is fully alert and oriented to everything though only partially oriented to time. Patient is able to voice understanding of things explained to her and is able to voice understanding of consequences of actions. I do believe patient does have capacity to make her decisions at this time. We will continue to reassess her mental state. I have also asked psychiatry to reevaluate and assess her for capacity and substance abuse. (2) CVA (cerebral vascular accident) Qualifiers: CVA mechanism: unspecified Qualified Code(s): I63.9 - Cerebral infarction, unspecified Is this a current diagnosis for this admission?: Yes Plan: MRI on 09/28/2019 showing recent infarct likely acute involving the right and left occipital lobes, left parietal lobe and right thalamus. Carotid Dopplers showing over 70% stenosis in the right ICA TTE on admission showing no evidence of intramural thrombus. Attempt at JOHNNY on 09/30 was unsuccessful given excessive gag reflex I will discuss with cardiology to see if we can reattempt JOHNNY with help of anesthesia the patient is agreeable, to reevaluate for possible cardioembolic so urce of stroke Plavix, atorvastatin Outpatient follow-up with vascular surgery for possible right carotid endarterectomy versus stenting (3) Elevated troponin Is this a current diagnosis for this admission?: Yes Plan: Patient is chest pain-free. Troponin admission 0.807; peaked at 10.9, now trending down. EKG reveals Prolonged QTC, though decreased from time of admission. Echocardiogram reveals LVEF greater than 65% with mild diastolic dysfunction, normal ventricular wall motion Continue daily aspirin and statin therapy. Continue monitor on cardiac telemetry. 09/29/2019-stable. Continue daily aspirin and statin. Continue telemetry 09/30/2019-stable continue current therapy 10/01/2019-stable continue aspirin and statin -stable 10/03/2019-stable continue aspirin and statin therapy 10/04/2019-stable 10/05/2019-stable continue to follow (4) UTI (urinary tract infection) Qualifiers: Urinary tract infection type: catheter-associated UTI Indwelling urinary catheter type: indwelling urethral catheter Encounter type: initial encounter Qualified Code(s): T83.511A - Infection and inflammatory reaction due to indwelling urethral catheter, initial encounter; N39.0 - Urinary tract i nfection, site not specified Is this a current diagnosis for this admission?: Yes Plan: Urinalysis positive for UTI. Urine culture pending. Empirically started on IV Rocephin. 09/29/2019-continue Rocephin until cultures return 09/30/2019-continue Rocephin await culture 10/02/2019-cultures show Proteus and Klebsiella species. Both susceptible to Cipro. Place patient on Cipro at this time will get an EKG to evaluate QT interval. 10/03/2019-at this time QT interval is 460. We will continue Cipro 10/04/2019-continue Cipro 10/05/2019-remains on Cipro 10/06/2019-patient has completed 7 days of antibiotics (5) Drug overdose, multiple drugs Qualifiers: Encounter type: initial encounter Injury intent: undetermined intent Qualified Code(s): T50.914A - Poisoning by multiple unspecified drugs, medicaments and biological substances, undetermined, initial encounter Is this a current diagnosis for this admission?: Yes Plan: Admitted 09/25/2019 for altered mental status and acute respiratory failure with hypoxia requiring intubation. Per roommate, the patient likely overdosed on approximately 42 Seroquel pills (unknown dose). Poison control following. EKG this morning shows sinus rhythm. QTc interval improved to 499. Mental health services are consulted. Avoid QTC prolonging agents. Continue to monitor on telemetry. Supportive care. 09/29/2019-stable at this time. Patient awake alert. Continue supportive care. Await mental health consultation 09/30/2019-stable continue supportive care await mental health consultation 10/01/2019-stable continue to follow 10/02/2019-remains in bed no complaints. Continue to follow 10/03/2019-stable no complaints this a.m. we will follow 10/04/2019-stable no complications at this time QTc interval is down to 460. 10/05/2019-stable continue to follow. 10/06/2019-asked psychiatry to re-evaluate - Time Time Spent with patient: 15-24 minutes
[2019-10-06] MEDS: AMITRIPTYLINE HCL 25 MG TABLET PO SCH (22:07)
[2019-10-06] MEDS: LISINOPRIL 10 MG TABLET PO SCH (22:07)
[2019-10-06] MEDS: ARIPIPRAZOLE 2 MG TABLET PO SCH (22:07)
[2019-10-06] MEDS: ATORVASTATIN CALCIUM 80 MG TABLET PO SCH (22:08)
[2019-10-07] MEDS: LEVOTHYROXINE SODIUM 0.075 MG TABLET PO SCH (05:12)
[2019-10-07] MEDS: LEVOTHYROXINE SODIUM 0.1 MG TABLET PO SCH (05:12)
[2019-10-07 06:50] LABS: HEMATOCRIT 35.4 % (36.0-47.0); HEMOGLOBIN 11.7 g/dL (12.0-15.5); MEAN CORPUSCULAR HEMOGLOBIN 27.4 pg (27.0-33.4); MEAN CORPUSCULAR VOLUME 83 fl (80-97); PLATELET COUNT 439 10^3/uL (150-450); RED BLOOD COUNT 4.25 10^6/uL (3.72-5.28); RED CELL DISTRIBUTION WIDTH 16.2 % (11.5-14.0); WHITE BLOOD COUNT 8.2 10^3/uL (4.0-10.5)
[2019-10-07 07:11] LABS: ANION GAP 8 (5-19); BLOOD UREA NITROGEN 29 mg/dL (7-20); CALCIUM 8.9 mg/dL (8.4-10.2); CARBON DIOXIDE 24 mmol/L (22-30); CHLORIDE 104 mmol/L (98-107); GLUCOSE 130 mg/dL (75-110); POTASSIUM 4.7 mmol/L (3.6-5.0)
[2019-10-07] MEDS: CLOPIDOGREL BISULFATE 75 MG TABLET PO SCH (09:07)
[2019-10-07] MEDS: DOCUSATE SODIUM 100 MG CAPSULE PO SCH ×2 (09:07→17:43)
[2019-10-07] MEDS: LACTOBACILLUS ACIDOPHILUS 250 MG TAB PO SCH ×2 (09:07→17:43)
[2019-10-07] MEDS: FAMOTIDINE 20 MG TABLET PO SCH (09:08)
[2019-10-07] MEDS: GABAPENTIN 400 MG CAPSULE PO SCH ×4 (09:08→21:38)
[2019-10-07] MEDS: INSULIN LISPRO 100 UNIT/ML 3 ML VIAL SUBCUT SCH ×4 (09:08→21:37)
[2019-10-07] MEDS: DULOXETINE HCL 30 MG CAPSULE.DR PO SCH (09:08)
[2019-10-07] MEDS: AMLODIPINE BESYLATE 10 MG TABLET PO SCH (09:08)
[2019-10-07] MEDS: METOPROLOL SUCCINATE 50 MG TAB.SR.24H PO SCH ×2 (09:08→21:38)
[2019-10-07] MEDS: ENOXAPARIN SODIUM INJ 30 MG/0.3 ML DISP.SYRIN SUBCUT SCH (09:09)
--- NOTE | 2019-10-07 12:27 | PDOC PROGRESS REPORT ---
Subjective Progress Note for:: 10/07/19 Subjective:: Patient feels well today. Fully understands the contents of our discussions and she is able to understand the consequences/implications of overdosing on her psych medications and overdosing on drugs. Denies any shortness of breath or dizziness currently. Reason For Visit: AMS,LONG QT,OVERDOSE Physical Exam Vital Signs: Temp Pulse Resp BP Pulse Ox 98.5 F 60 15 104/63 98 10/07/19 08:05 10/07/19 08:05 10/07/19 08:05 10/07/19 08:05 10/07/19 08:05 Intake & Output 10/06/19 10/07/19 10/08/19 06:59 06:59 06:59 Intake Total 460 350 Output Total 0 Balance 460 350 Weight 52.3 kg 53 kg General appearance: PRESENT: no acute distress, cooperative Eye exam: PRESENT: EOMI. ABSENT: scleral icterus Neck exam: ABSENT: JVD Respiratory exam: PRESENT: clear to auscultation jaqueline, symmetrical, unlabored. ABSENT: rales, tachypnea, wheezes Cardiovascular exam: PRESENT: RRR, +S1, +S2. ABSENT: tachycardia GI/Abdominal exam: PRESENT: normal bowel sounds, soft. ABSENT: guarding, rigid, tenderness Neurological exam: PRESENT: alert, awake, oriented to person, oriented to place, oriented to time, oriented to situation. ABSENT: motor sensory deficit Psychiatric exam: ABSENT: agitated Results Laboratory Results: 10/07/19 05:58 10/07/19 05:58 10/07/19 10/07/19 05:58 05:58 WBC 8.2 RBC 4.25 Hgb 11.7 L Hct 35.4 L MCV 83 MCH 27.4 MCHC 33.0 RDW 16.2 H Plt Count 439 Sodium 136.1 L Potassium 4.7 Chloride 104 Carbon Dioxide 24 Anion Gap 8 BUN 29 H Creatinine 1.22 Est GFR ( Amer) 55 L Glucose 130 H Calcium 8.9 Magnesium 1.9 09/24/19 09/24/19 09/25/19 22:35 22:35 07:05 Creatine Kinase 84 709 H Troponin I 0.807 09/25/19 09/25/19 09/25/19 10:33 10:33 18:44 Creatine Kinase 896 H Troponin I 10.900 7.170 09/26/19 09/28/19 09/29/19 03:29 16:21 00:43 Creatine Kinase Troponin I 3.480 0.675 0.676 09/29/19 07:40 Creatine Kinase Troponin I 0.635 Impressions: Head CT 09/24/19 23:12 IMPRESSION: No acute findings. Chest X-Ray 09/24/19 23:13 IMPRESSION: Endotracheal tube tip is located within the trachea, approximately 2.8 cm above the larisa. Otherwise, clear lungs. copyright 2011 [employer]- All Rights Reserved Brain MRI with MRA 09/28/19 00:00 IMPRESSION: NORMAL MRA OF THE [place]. Carotid Doppler Study 09/28/19 00:00 IMPRESSION: 1. Atherosclerosis 2. Greater than 70% stenosis of the right internal carotid artery, as seen on 05/29/2019 3. No significant stenosis of the left internal carotid artery 4. At least 50-69% stenosis of the left external carotid artery 5. Right vertebral could not be identified. Normal antegrade flow in the left vertebral artery. Head MRI 09/28/19 00:00 IMPRESSION: SEVERAL AREAS OF RESTRICTED DIFFUSION CONSISTENT WITH RECENT INFARCT. AREAS OF INVOLVEMENT INCLUDE THE CORTICAL SURFACES OF THE RIGHT AND LEFT OCCIPITAL LOBE, SUBCORTICAL WHITE MATTER OF THE POSTERIOR LEFT PARIETAL LOBE, AND IN THE RIGHT THALAMUS. POSSIBLE SIMILAR FINDING IN THE RIGHT CEREBELLAR HEMISPHERE. EVIDENCE OF ACUTE STROKE: YES. RIGHT AND LEFT POSTERIOR CIRCULATION AND RIGHT AND LEFT MIDDLE CEREBRAL ARTERY. Assessment and Plan - Diagnosis (1) Acute encephalopathy Is this a current diagnosis for this admission?: Yes Plan: Patient continues to demonstrate full capacity for decision-making on my assessment. Patient remains fully alert and oriented to everything though only partially oriented to time [able to voice to month but not the year]. Patient is able to communicate appropriately, responds appropriately to questions, voices understanding of everything explained to her and is able to voice understanding of consequences of actions/drug overdose. I do believe patient does have capacity to make her decisions at this time. (2) CVA (cerebral vascular accident) Qualifiers: CVA mechanism: unspecified Qualified Code(s): I63.9 - Cerebral infarction, unspecified Is this a current diagnosis for this admission?: Yes Plan: MRI on 09/28/2019 showing recent infarct likely acute involving the right and left occipital lobes, left parietal lobe and right thalamus. Carotid Dopplers showing over 70% stenosis in the right ICA TTE on admission showing no evidence of intramural thrombus. Attempt at JOHNNY for evaluation of potential cardioembolic source (given multiple areas of acute stroke in both hemispheres on MRI) on 09/30 was unsuccessful given excessive gag reflex I have placed in order to have a JOHNNY reattempted tomorrow with help of anesthesia. Patient is agreeable to have this done. Plavix, atorvastatin Outpatient follow-up with neurosurgery for possible right carotid endarterectomy versus stenting. Patient states she had made an appointment with Dr. Michael Toth but never made it to the appointment. (3) Elevated troponin Is this a current diagnosis for this admission?: Yes Plan: Patient is chest pain-free. Troponin admission 0.807; peaked at 10.9, then down trended. Echocardiogram reveals LVEF greater than 65% with mild diastolic dysfunction, normal ventricular wall motion Stable (4) UTI (urinary tract infection) Qualifiers: Urinary tract infection type: catheter-associated UTI Indwelling urinary catheter type: indwelling urethral catheter Encounter type: initial encounter Qualified Code(s): T83.511A - Infection and inflammatory reaction due to indwelling urethral catheter, initial encounter; N39.0 - Urinary tract infection, site not specified Is this a current diagnosis for this admission?: Yes Plan: patient has completed 7 days of antibiotics [ceftriaxone then ciprofloxacin] (5) Drug overdose, multiple drugs Qualifiers: Encounter type: initial encounter Injury intent: undetermined intent Qualified Code(s): T50.914A - Poisoning by multiple unspecified drugs, medicamen ts and biological substances, undetermined, initial encounter Is this a current diagnosis for this admission?: Yes Plan: Admitted 09/25/2019 for altered mental status and acute respiratory failure with hypoxia requiring intubation. Per roommate, the patient likely overdosed on approximately 42 Seroquel pills (unknown dose). Poison control following. EKG this morning shows sinus rhythm. QTc interval improved to 499. Mental health services are consulted. Avoid QTC prolonging agents. Continue to monitor on telemetry. Supportive care. 09/29/2019-stable at this time. Patient awake alert. Continue supportive care. Await mental health consultation 09/30/2019-stable continue supportive care await mental health consultation 10/01/2019-stable continue to follow 10/02/2019-remains in bed no complaints. Continue to follow 10/03/2019-stable no complaints this a.m. we will follow 10/04/2019-stable no complications at this time QTc interval is down to 460. 10/05/2019-stable continue to follow. 10/06/2019-asked psychiatry to re-evaluate - Time Time Spent with patient: 15-24 minutes
--- NOTE | 2019-10-07 15:16 | PSYCHOLOGICAL NOTE ---
Psych Note - Psych Note Date seen by psych provider: 10/07/19 Time seen by psych provider: 10:40 Psych Note: Reason for Re-Consult: Capacity Impression/Plan: Patient is cleared from acute psychiatric services. Patient can demonstrate orientation to everything correctly other than county and year. She is able to demonstrate strong problem solving and safety skills but struggled with abstract and rational thinking, memory and executive functions, and visuospatial organizational abilities. These deficits are unsurprising/expected after her CVA event. Patient was able to engage appropriately and discuss her medication she is prescribed (by name) and what she needs to take them for. She identified she overdose accidental and reports she thinks she took her medication twice because she forgot she had already taken it. She identified the concern this would cause and problem solved (unprompted) by stating she would like to get a pill organizer to help her see when she has take her medication or not. Patient does have a substance abuse history of prescription pills. She adamantly denies suicidal ideation or intentional overdose. At this time, the patient is recommended to have home health or some other agency assist with home check ins while still adjusting/recovering her cognitive functioning after her stroke. She is also recommended for a medical power of disability attorney. Patient continues to demonstrate concerning denial in regards to her probable relapse with prescription pills (she has overdosed 3 times since June). She was sent for inpatient treatment after her second overdose on 07/27/2019 [facility] (she was transferred on 08/06/2019). Unfortunately, until the patient is ready to admit and engage in substance abuse treatment, efforts at substance abuse treatment will be unsuccessful. Patient is also recommended to follow up with her neurologist. Dr. Crawford was consulted and the care management of this patient; attending physicians in agreement with recommendations and disposition.
[2019-10-07] MEDS: AMITRIPTYLINE HCL 25 MG TABLET PO SCH (21:38)
[2019-10-07] MEDS: ARIPIPRAZOLE 2 MG TABLET PO SCH (21:39)
[2019-10-07] MEDS: ATORVASTATIN CALCIUM 80 MG TABLET PO SCH (21:39)
[2019-10-07] MEDS: LISINOPRIL 10 MG TABLET PO SCH (21:39)
[2019-10-08] MEDS: LEVOTHYROXINE SODIUM 0.1 MG TABLET PO SCH (05:26)
[2019-10-08] MEDS: LEVOTHYROXINE SODIUM 0.075 MG TABLET PO SCH (05:26)
[2019-10-08] MEDS ORDERED: PROPOFOL INJ 200 MG/20 ML VIAL IV ONE (07:18)
[2019-10-08] MEDS: INSULIN LISPRO 100 UNIT/ML 3 ML VIAL SUBCUT SCH ×3 (08:02→16:06)
--- NOTE | 2019-10-08 08:38 | XCELERA REPORT ---
Study ID: [id number] Transesophageal Echocardiogram Report Name: SHELLEY RODRÍGUEZ Age: 54 yrs Gender: Female : 1965 Patient Status: Inpatient Patient Location: [address] [place] [address] Study Date: 10/08/2019 08:37 AM History: MISAEL Reason For Study: ?cardioembolic istroke. will need anesthesia Ordering Physician: GERONIMO BUSTILLO Performed By: Camelia Palacios Interpretation Summary The left ventricular ejection fraction is normal. Ejection Fraction = >55%. The right ventricle is normal in size and function. No hemodynamically significant valvular aortic stenosis. There is no mitral regurgitation noted. No thrombus is detected in the left atrial appendage. There is no thrombus. Bubble study suggests presense of PFO Procedure A complete two-dimensional transesophageal echocardiogram was performed (2D, spectral and color flow Doppler). Saline contrast utilized. The patient was brought to the Endoscopy in a fasting state. An intravenous line was placed. A topical anesthetic agent was used for oropharangeal anesthesia. A bite block was inserted. IV conscious sedation was administered using Propofol GA/ Dr. Chung. The patient's vital signs, including blood pressure, heart rate, pulse oximetry and cardiac rhythm were monitored thoughout the procedure. A multifrequency, mutliplane transesophageal echocardiographic endoscope was inserted and manipulated in the standard fashion to achieve multiplane views. The transesophageal probe was passed without difficulty. The transesophageal probe was passed with difficulty due to JOHNNY probe passed using Laryngoscope. The usual views were obtained; basal, mid-esophageal, transgastric and aortic views. The patient tolerated the procedure well without evidence of orophangeal or esophageal trauma. Subsequent to all the images being obtained the probe was removed with out trauma. Dr. Chung with anesthesia helped woth Propfol sedation. I had difficulty intubating patient. So he passed probe by visualizing the trachea and esophagus using laryngoscope. Left Ventricle The left ventricle is normal in size. There is no thrombus. There is normal left ventricular wall thickness. The left ventricular ejection fraction is normal. Ejection Fraction = >55%. The left ventricular wall motion is normal. Right Ventricle The right ventricle is normal in size and function. Atria Injection of contrast documented an interatrial shunt. A patent foramen ovale is suspected. The left atrial size is normal. No thrombus is detected in the left atrial appendage. LA appendage velocity WNL. Mitral Valve The mitral valve is normal in structure and function. There is no mitral valve stenosis. There is no mitral regurgitation noted. Tricuspid Valve The tricuspid valve is normal in structure and function. No tricuspid regurgitation. Aortic Valve The aortic valve is trileaflet. The aortic valve opens well. The aortic valve is normal in structure and function. No hemodynamically significant valvular aortic stenosis. No aortic regurgitation is present. Pulmonic Valve The pulmonic valve is not well visualized. There is no pulmonic valvular regurgitation. Arteries The aortic root is normal size. Pericardium There is no pericardial effusion. : GERONIMO BUSTILLO Anil
[2019-10-08] MEDS: FAMOTIDINE 20 MG TABLET PO SCH (09:05)
[2019-10-08] MEDS: GABAPENTIN 400 MG CAPSULE PO SCH ×3 (09:05→17:40)
[2019-10-08] MEDS: ENOXAPARIN SODIUM INJ 30 MG/0.3 ML DISP.SYRIN SUBCUT SCH (09:06)
[2019-10-08] MEDS: DULOXETINE HCL 30 MG CAPSULE.DR PO SCH (09:06)
[2019-10-08] MEDS: LACTOBACILLUS ACIDOPHILUS 250 MG TAB PO SCH ×2 (09:06→17:40)
[2019-10-08] MEDS: CLOPIDOGREL BISULFATE 75 MG TABLET PO SCH (09:06)
[2019-10-08] MEDS: DOCUSATE SODIUM 100 MG CAPSULE PO SCH ×2 (09:13→17:40)
--- NOTE | 2019-10-08 16:30 | RADIOLOGY REPORT (SQ) ---
EXAM DESCRIPTION: VENOUS BILATERAL LOWER COMPLETED DATE/TIME: 10/08/2019 4:19 pm REASON FOR STUDY: pfo, ?cardioembolic cva COMPARISON: None. TECHNIQUE: Dynamic and static florian scale and color images acquired of both lower extremity venous sy stems. Selected spectral images acquired with additional compression and augmentation maneuvers. Imag es stored on PACS. LIMITATIONS: None. FINDINGS: RIGHT LEG COMMON FEMORAL AND FEMORAL: Normal phasicity, compression and augmentation. No visualized echogenic m aterial on florian scale. No defects on color images. POPLITEAL: Normal compression and augmentation. No visualized echogenic material on florian scale. No de fects on color images. CALF VESSELS: Normal compression and augmentation. No visualized echogenic material on florian scale. No defects on color image. GSV AND SSV: Normal compression. No visualized echogenic material on florian scale. No defects on color images. ANY DEEP VENOUS INSUFFICIENCY: Not evaluated. ANY EVIDENCE OF POPLITEAL CYST: No. OTHER: No other significant finding. LEFT LEG COMMON FEMORAL AND FEMORAL: Normal phasicity, compression and augmentation. No visualized echogenic m aterial on florian scale. No defects on color images. POPLITEAL: Normal compression and augmentation. No visualized echogenic material on florian scale. No de fects on color images. CALF VESSELS: Normal compression and augmentation. No visualized echogenic material on florian scale. No defects on color images. GSV AND SSV: Normal compression. No visualized echogenic material on florian scale. No defects on color images. ANY DEEP VENOUS INSUFFICIENCY: Not evaluated. ANY EVIDENCE POPLITEAL CYST: No. OTHER: No other significant finding. IMPRESSION: NO EVIDENCE DVT OR SVT IN EITHER LEG. TECHNICAL DOCUMENTATION: JOB ID: [id number] [employer]- All Rights Reserved Reading location - IP/workstation name: [email or web address]
--- NOTE | 2019-10-08 17:48 | PDOC DISCHARGE SUMMARY ---
Impression - Admit/DC Date/PCP Admission Date/Primary Care Provider: 09/25/19 03:16 CLINTON TIDWELL MD Discharge Date: 10/08/19 - Discharge Diagnosis (1) Acute encephalopathy Is this a current diagnosis for this admission?: Yes (2) CVA (cerebral vascular accident) Is this a current diagnosis for this admission?: Yes (3) Elevated troponin Is this a current diagnosis for this admission?: Yes (4) UTI (urinary tract infection) Is this a current diagnosis for this admission?: Yes (5) Drug overdose, multiple drugs Is this a current diagnosis for this admission?: Yes (6) Long QT interval Is this a current diagnosis for this admission?: Yes (7) Hypokalemia Is this a current diagnosis for this admission?: Yes (8) Acute kidney injury Is this a current diagnosis for this admission?: Yes - Assessment Summary: Patient was initially admitted after drug overdose. Presentation in the ER was suspected that patient had overdosed on drugs similar to prior episode. EKG showed prolonged QT interval. Patient was found to have a GCS of 7, hypotensive with respiratory depression and deemed unable to protect her airway. She was subsequently intubated and admitted to the intensive care unit. She was given sodium bicarbonate with suspicion of possible overdose on amitriptyline as well. Psychiatry was consulted. At the time of presentation patient was also found to be having an acute kidney injury likely from the hypotension. She was given IV fluid challenge with improvement of her ELFEGO. Patient was later able to be weaned off the ventilator. At that time she was assessed by psychiatry who deemed patient incapacitated giving her acute encephalopathy. Of note patient's roommate reported that she took 42 pills of her Seroquel. An MRI of the brain was later performed to assess patient's continued encephalopathy state. The MRI showed an acute ischemic stroke involving the right and left occipital lobes, left parietal lobe right thalamus. Carotid ultrasound showed over 70% right ICA stenosis. MRA of the brain showed no significant stenosis in the intracranial region. Given the multiple regions involved in both hemispheres of the stroke, there was suspicion for cardioembolic source. A JOHNNY was attempted with conscious sedation but was unsuccessful as patient kept on gagging when the probe was placed. Patient's encephalopathy later improved and resolved. At that point I assessed patient and deemed that patient had full capacity to make our decisions. A JOHNNY was later reattempted with patient consent with the help of anesthesia. The JOHNNY showed no evidence of intramural thrombus but showed a patent foramen ovale. Lower extremity Dopplers were negative for any DVTs. Patient was seen by psychiatry and counseled on the need to stop substance abuse and to seek help regarding this. Patient refused inpatient substance use rehab. Patient was later discharged in stable conditions on aspirin and atorvastatin for stroke and given clear instructions to follow-up with Dr. Tidwell for evaluation of her carotid stenosis for possible carotid endarterectomy. - Additional Information Resuscitation Status: Full Code Discharge Diet: As Tolerated Discharge Activity: Activity As Tolerated Referrals: CLINTON TIDWELL MD [Primary Care Provider] - (Follow-up within 1 to 2 weeks.) ALEX WALTERS FNP-C [NO [facility] MD] - Prescriptions: Aspirin [Aspir-Low] 81 mg PO DAILY #30 tablet. Atorvastatin Calcium [Lipitor 80 mg Tablet] 80 mg PO QHS #30 tablet Home Medications: Amitriptyline HCl [Elavil 25 mg Tablet] 25 mg PO QHS 09/25/19 Amlodipine Besylate [Norvasc 10 mg Tablet] 10 mg PO DAILY 09/25/19 Carbamazepine [Carbamazepine ER] 200 mg PO BID 09/25/19 Duloxetine HCl [Cymbalta] 60 mg PO QAM 09/25/19 Gabapentin [Neurontin] 800 mg PO QID 09/25/19 Insulin Lispro [Humalog Ej Kwikpen] 0 unit SQ .SLD SCALE 09/25/19 Levothyroxine Sodium [Synthroid] 175 mcg PO Q6AM 09/25/19 Lisinopril [Prinivil 10 mg Tablet] 10 mg PO QHS 09/25/19 Metformin HCl [Glucophage] 1,000 mg PO BID 09/25/19 Tramadol HCl [Ultram 50 mg Tablet] 50 mg PO Q8 09/25/19 Aspirin [Aspir-Low] 81 mg PO DAILY #30 tablet. 10/08/19 Atorvastatin Calcium [Lipitor 80 mg Tablet] 80 mg PO QHS #30 tablet 10/08/19 History of Present Illiness History of Present Illness: SHELLEY RODRÍGUEZ is a 54 year old female with a past medical history of diabetes, hypothyroidism, hypertension, COPD, bipolar and recurrent suicide attempt by medication presents to the emergency room after discovered by her roommate poorly responsive on the floor. In the emergency room she has a GCS of 7, hypotension and respiratory depression unable to protect her airway she is intubated. She is otherwise found to have acute renal failure and a prolonged QT interval. She is referred to the hospitalist for admission. Physical Exam Vital Signs: Temp Pulse Resp BP Pulse Ox 97.2 F 62 18 115/77 100 10/08/19 12:32 10/08/19 14:00 10/08/19 12:32 10/08/19 12:32 10/08/19 12:32 Intake & Output 10/07/19 10/08/19 10/09/19 06:59 06:59 06:59 Intake Total 253 475 1929 Output Total 0 Balance 255 971 8548 Weight 53 kg 53.3 kg General appearance: PRESENT: no acute distress, cooperative Respiratory exam: PRESENT: clear to auscultation jaqueline, symmetrical, unlabored. ABSENT: tachypnea, wheezes Cardiovascular exam: PRESENT: +S1, +S2. ABSENT: diastolic murmur, systolic murmur GI/Abdominal exam: PRESENT: normal bowel sounds, soft. ABSENT: rebound, rigid, tenderness Neurological exam: PRESENT: alert, awake, oriented to person, oriented to place, oriented to time, oriented to situation Results Laboratory Results: WBC 8.2 10^3/uL (4.0-10.5) 10/07/19 05:58 RBC 4.25 10^6/uL (3.72-5.28) 10/07/19 05:58 Hgb 11.7 g/dL (12.0-15.5) L 10/07/19 05:58 Hct 35.4 % (36.0-47.0) L 10/07/19 05:58 MCV 83 fl (80-97) 10/07/19 05:58 MCH 27.4 pg (27.0-33.4) 10/07/19 05:58 MCHC 33.0 g/dL (32.0-36.0) 10/07/19 05:58 RDW 16.2 % (11.5-14.0) H 10/07/19 05:58 Plt Count 439 10^3/uL (150-450) 10/07/19 05:58 Lymph % (Auto) 8.1 % (13-45) L 09/26/19 03:29 Shackelford % (Auto) 5.3 % (3-13) 09/26/19 03:29 Eos % (Auto) 0.2 % (0-6) 09/26/19 03:29 Baso % (Auto) 0.5 % (0-2) 09/26/19 03:29 Absolute Neuts (auto) 14.2 10^3/uL (1.7-8.2) H 09/26/19 03:29 Absolute Lymphs (auto) 1.3 10^3/uL (0.5-4.7) 09/26/19 03:29 Absolute Monos (auto) 0.9 10^3/uL (0.1-1.4) 09/26/19 03:29 Absolute Eos (auto) 0.0 10^3/uL (0.0-0.6) 09/26/19 03:29 Absolute Basos (auto) 0.1 10^3/uL (0.0-0.2) 09/26/19 03:29 Total Counted 100 09/25/19 07:05 Seg Neutrophils % 85.9 % (42-78) H 09/26/19 03:29 Seg Neuts % (Manual) 89 % (42-78) H 09/25/19 07:05 Lymphocytes % (Manual) 6 % (13-45) L 09/25/19 07:05 Monocytes % (Manual) 5 % (3-13) 09/25/19 07:05 Eosinophils % (Manual) 0 % (0-6) 09/25/19 07:05 Basophils % (Manual) 0 % (0-2) 09/25/19 07:05 Abs Neuts (Manual) 20.5 10^3/uL (1.7-8.2) H 09/25/19 07:05 Abs Lymphs (Manual) 1.4 10^3/uL (0.5-4.7) 09/25/19 07:05 Abs Monocytes (Manual) 1.2 10^3/uL (0.1-1.4) 09/25/19 07:05 Absolute Eos (Manual) 0.0 10^3/uL (0.0-0.6) 09/25/19 07:05 Abs Basophils (Manual) 0.0 10^3/uL (0.0-0.2) 09/25/19 07:05 Smudge Cells PRESENT 09/25/19 07:05 Clumped Platelets PRESENT 09/25/19 07:05 Platelet Comment ADEQUATE 09/25/19 07:05 Anisocytosis SLIGHT 09/25/19 07:05 PT 13.4 SEC (11.4-15.4) 09/25/19 08:46 INR 1.02 09/25/19 08:46 APTT 30.8 SEC (23.5-35.8) 09/25/19 13:19 Sodium 136.1 mmol/L (137-145) L 10/07/19 05:58 Potassium 4.7 mmol/L (3.6-5.0) 10/07/19 05:58 Chloride 104 mmol/L (98-107) 10/07/19 05:58 Carbon Dioxide 24 mmol/L (22-30) 10/07/19 05:58 Anion Gap 8 (5-19) 10/07/19 05:58 BUN 29 mg/dL (7-20) H 10/07/19 05:58 Creatinine 1.22 mg/dL (0.52-1.25) 10/07/19 05:58 Est GFR ( Amer) 55 (>60) L 10/07/19 05:58 Est GFR (MDRD) Non-Af 46 (>60) L 10/07/19 05:58 Glucose 130 mg/dL (75-110) H 10/07/19 05:58 POC Glucose 142 mg/dL (70-110) H 10/08/19 16:55 Calcium 8.9 mg/dL (8.4-10.2) 10/07/19 05:58 Magnesium 1.9 mg/dL (1.6-2.3) 10/07/19 05:58 Total Bilirubin 0.5 mg/dL (0.2-1.3) 09/26/19 03:29 Direct Bilirubin 0.4 mg/dL (0.0-0.4) 09/26/19 03:29 Neonat Total Bilirubin Not Reportable 09/26/19 03:29 Neonat Direct Bilirubin Not Reportable 09/26/19 03:29 Neonat Indirect Bili Not Reportable 09/26/19 03:29 AST 66 U/L (14-36) H 09/26/19 03:29 ALT 17 U/L (<35) 09/26/19 03:29 Alkaline Phosphatase 130 U/L (38-126) H 09/26/19 03:29 Creatine Kinase 896 U/L (30-135) H 09/25/19 10:33 Troponin I 0.635 ng/mL 09/29/19 07:40 Total Protein 6.4 g/dL (6.3-8.2) 09/26/19 03:29 Albumin 3.3 g/dL (3.5-5.0) L 09/26/19 03:29 Triglycerides 297 mg/dL (<150) H 09/29/19 07:40 Cholesterol 242.46 mg/dL (0-200) H 09/29/19 07:40 LDL Cholesterol Direct 164 mg/dL (<100) H 09/29/19 07:40 VLDL Cholesterol 59.4 mg/dL (10-31) H 09/29/19 07:40 HDL Cholesterol 32 mg/dL (>40) L 09/29/19 07:40 Serum HCG, Qual NEGATIVE (NEGATIVE) 09/24/19 22:35 Urine Color YELLOW 10/05/19 08:50 Urine Appearance SLIGHTLY-CLOUDY 10/05/19 08:50 Urine pH 6.0 (5.0-9.0) 10/05/19 08:50 Ur Specific Mason 1.012 10/05/19 08:50 Urine Protein 30 mg/dL (NEGATIVE) H 10/05/19 08:50 Urine Glucose (UA) NEGATIVE mg/dL (NEGATIVE) 10/05/19 08:50 Urine Ketones NEGATIVE mg/dL (NEGATIVE) 10/05/19 08:50 Urine Blood MODERATE (NEGATIVE) H 10/05/19 08:50 Urine Nitrite NEGATIVE (NEGATIVE) 10/05/19 08:50 Urine Nitrite (Reflex) POSITIVE (NEGATIVE) H 09/28/19 09:55 Urine Bilirubin NEGATIVE (NEGATIVE) 10/05/19 08:50 Urine Urobilinogen NEGATIVE mg/dL (<2.0) 10/05/19 08:50 Ur Leukocyte Esterase SMALL (NEGATIVE) H 10/05/19 08:50 Leukocyte Esterase Rfl SMALL (NEGATIVE) H 09/28/19 09:55 Urine WBC (Auto) 12 /HPF 10/05/19 08:50 Urine RBC (Auto) 49 /HPF 10/05/19 08:50 U Hyaline Cast (Auto) 3 /LPF 10/05/19 08:50 Urine Bacteria (Auto) TRACE /HPF 10/05/19 08:50 Urine WBC (Reflex) 43 /HPF 09/28/19 09:55 Urine WBC Clumps FEW /HPF 09/30/19 11:54 Squamous Epi Cells Auto 1 /HPF 10/05/19 08:50 Amorphous Sediment Auto TRACE /HPF 09/30/19 11:54 Urine Mucus (Auto) RARE /LPF 10/05/19 08:50 Urine Yeast (Budding) PRESENT /HPF 10/05/19 08:50 Urine Ascorbic Acid NEGATIVE (NEGATIVE) 10/05/19 08:50 Stl C. Difficile GDH Ag NEGATIVE (NEGATIVE) 09/26/19 14:18 Stl C.difficile Tox A&B NEGATIVE (NEGATIVE) 09/26/19 14:18 Salicylates < 1.0 mg/dL (2.0-20.0) L 09/24/19 22:35 Urine Opiates Screen NEGATIVE 09/24/19 00:44 Urine Methadone Screen NEGATIVE 09/24/19 00:44 Acetaminophen < 10 ug/mL (10-30) L 09/24/19 22:35 Ur Barbiturates Screen NEGATIVE 09/24/19 00:44 Carbamazepine 2.6 ug/mL (4.0-12.0) L 09/24/19 22:35 Ur Phencyclidine Scrn NEGATIVE 09/24/19 00:44 Ur Amphetamines Screen NEGATIVE 09/24/19 00:44 U Benzodiazepines Scrn NEGATIVE 09/24/19 00:44 Urine Cocaine Screen NEGATIVE 09/24/19 00:44 U Marijuana (THC) Screen NEGATIVE 09/24/19 00:44 Serum Alcohol < 10 mg/dL (NONE DETECTED) 09/24/19 22:35 09/24/19 09/25/19 09/25/19 22:35 10:33 18:44 Troponin I 0.807 10.900 7.170 09/26/19 09/28/19 09/29/19 03:29 16:21 00:43 Troponin I 3.480 0.675 0.676 09/29/19 07:40 Troponin I 0.635 Impressions: Chest X-Ray 09/24/19 00:00 IMPRESSION: 1. No acute pulmonary process identified. Head CT 09/24/19 23:12 IMPRESSION: No acute findings. Chest X-Ray 09/24/19 23:13 IMPRESSION: Endotracheal tube tip is located within the trachea, approximately 2.8 cm above the larisa. Otherwise, clear lungs. copyright 2010 [employer]- All Rights Reserved Brain MRI with MRA 09/28/19 00:00 IMPRESSION: NORMAL MRA OF THE [place]. Carotid Doppler Study 09/28/19 00:00 IMPRESSION: 1. Atherosclerosis 2. Greater than 70% stenosis of the right internal carotid artery, as seen on 05/29/2019 3. No significant stenosis of the left internal carotid artery 4. At least 50-69% stenosis of the left external carotid artery 5. Right vertebral could not be identified. Normal antegrade flow in the left vertebral artery. Head MRI 09/28/19 00:00 IMPRESSION: SEVERAL AREAS OF RESTRICTED DIFFUSION CONSISTENT WITH RECENT INFARCT. AREAS OF INVOLVEMENT INCLUDE THE CORTICAL SURFACES OF THE RIGHT AND LEFT OCCIPITAL LOBE, SUBCORTICAL WHITE MATTER OF THE POSTERIOR LEFT PARIETAL LOBE, AND IN THE RIGHT THALAMUS. POSSIBLE SIMILAR FINDING IN THE RIGHT CEREBELLAR HEMISPHERE. EVIDENCE OF ACUTE STROKE: YES. RIGHT AND LEFT POSTERIOR CIRCULATION AND RIGHT AND LEFT MIDDLE CEREBRAL ARTERY. Venous Doppler Study 10/08/19 00:00 IMPRESSION: NO EVIDENCE DVT OR SVT IN EITHER LEG. Plan Time Spent: Greater than 30 Minutes Stroke Is this a Stroke Patient?: Yes Stroke Pt being discharged on Anti-thrombolytic therapy?: Yes Stroke Pt being discharged on Anti-coagulation therapy?: No Reason(s) for not prescribing Anti-coagulation therapy:: Not indicated Stroke Pt being discharged on Statins?: Yes Acute Heart Failure - Is this a Heart Failure Patient?: No
[2019-10-08 18:01] VITALS: BP 91/62
== END 2019-10-08 18:45 | disposition home or self-care (01) | DRG 917 ==
LOC: ER 22:08 → EH 09-25 03:16 → ICU 09-25 05:43 → 4N 09-27 20:18 → 3S 09-28 16:53
PROVIDERS: ADMIT Internal Medicine; ATTEND Anesthesiology
PROC: 0BH17EZ Insertion of Endotracheal Airway into Trachea, Via Natural or Artificial Opening (ICD-10-PCS; principal; 2019-09-25)
PROC: 5A1945Z Respiratory Ventilation, 24-96 Consecutive Hours (ICD-10-PCS; 2019-09-25)
DX: T43.594A Poisoning by other antipsychotics and neuroleptics, undetermined, initial encounter (principal); J96.01 Acute respiratory failure with hypoxia; T83.511A Infection and inflammatory reaction due to indwelling urethral catheter, initial encounter; N39.0 Urinary tract infection, site not specified; G92 Toxic encephalopathy; I63.412 Cerebral infarction due to embolism of left middle cerebral artery; I63.543 Cerebral infarction due to unspecified occlusion or stenosis of bilateral cerebellar arteries; N17.9 Acute kidney failure, unspecified; T43.012A Poisoning by tricyclic antidepressants, intentional self-harm, initial encounter; E11.9 Type 2 diabetes mellitus without complications; J44.9 Chronic obstructive pulmonary disease, unspecified; F31.9 Bipolar disorder, unspecified; R94.31 Abnormal electrocardiogram [ECG] [EKG]; K59.1 Functional diarrhea; Y84.6 Urinary catheterization as the cause of abnormal reaction of the patient, or of later complication, without mention of misadventure at the time of the procedure; R40.2432 Glasgow coma scale score 3-8, at arrival to emergency department; R79.89 Other specified abnormal findings of blood chemistry; R68.0 Hypothermia, not associated with low environmental temperature; B96.4 Proteus (mirabilis) (morganii) as the cause of diseases classified elsewhere; B96.1 Klebsiella pneumoniae [K. pneumoniae] as the cause of diseases classified elsewhere; E87.6 Hypokalemia; Z88.0 Allergy status to penicillin; Y92.009 Unspecified place in unspecified non-institutional (private) residence as the place of occurrence of the external cause; E03.9 Hypothyroidism, unspecified; Z91.5 Personal history of self-harm; Z79.4 Long term (current) use of insulin; Z79.899 Other long term (current) drug therapy
CPT/HCPCS: 01922; 36415; 51702; 70450; 70544; 70551; 71045; 80048; 80053; 80061; 80156; 80307; 81001; 82550; 82962; 83735; 84132; 84484; 84703; 85025; 85027; 85610; 85730; 87040; 87045; 87086; 87088; 87186; 87205; 87324; 87449; 93005; 93010; 93306; 93312; 93325; 93880; 93970; 94002; 94003; 96361; 96374; 99231; 99291; 99292; J0171; J0330; J0360; J0696; J1200; J1610; J1650; J1815; J2250; J2310; J2704; J3010; J3475; J3480; J3490; J7030; J7620

== ENCOUNTER 2019-10-23 18:10 | Inpatient (IN) | payer MEDICARE ==
[2019-10-23] MEDS ORDERED: NORMAL SALINE 1000 ML 1,000 ML IV PRN (20:00)
[2019-10-23 20:06] LABS: ABSOLUTE BASOPHILS # (AUTO) 0.1 10^3/uL (0.0-0.2); ABSOLUTE LYMPHOCYTES (AUTO) 1.7 10^3/uL (0.5-4.7); ABSOLUTE MONOCYTES (AUTO) 0.7 10^3/uL (0.1-1.4); ABSOLUTE NEUT (AUTO) 13.4 10^3/uL (1.7-8.2); BASOPHILS % (AUTO) 0.5 % (0-2); EOSINOPHILS % (AUTO) 0.1 % (0-6); HEMATOCRIT 37.2 % (36.0-47.0); HEMOGLOBIN 11.9 g/dL (12.0-15.5); LYMPHOCYTES % (AUTO) 10.9 % (13-45); MEAN CORPUSCULAR HEMOGLOBIN 26.8 pg (27.0-33.4); MEAN CORPUSCULAR HGB CONC 31.9 g/dL (32.0-36.0); MEAN CORPUSCULAR VOLUME 84 fl (80-97); MONOCYTES % (AUTO) 4.4 % (3-13); PLATELET COUNT 671 10^3/uL (150-450); RED BLOOD COUNT 4.43 10^6/uL (3.72-5.28); RED CELL DISTRIBUTION WIDTH 17.4 % (11.5-14.0); SEGMENTED NEUTROPHILS % (AUTO) 84.1 % (42-78); TOTAL CELLS COUNTED % (AUTO) 100 %
[2019-10-23 20:13] LABS: INTERNATIONAL RATION (INR) 0.83; PROTHROMBIN TIME 11.4 SEC (11.4-15.4)
--- NOTE | 2019-10-23 20:14 | ER Document Report ---
ED General - General Chief Complaint: Possible Overdose Stated Complaint: POSSIBLE OVERDOSE Time Seen by Provider: 10/23/19 19:33 Primary Care Provider: CLINTON TIDWELL MD [Primary Care Provider] - Follow up as needed TRAVEL OUTSIDE OF THE [place] IN LAST 30 DAYS: No - HPI Notes: Patient is a 54-year-old female with a history of drug and alcohol abuse in the past who presents for altered mental status by EMS when APS went to evaluate the patient had her home. They noticed that she was acting and behaving abnormally. She was admitted to the hospital September 24 of this past month for encephalopathy, CVA, ELFEGO, probable cervical overdose and had to be intubated. She was noted to have a carotid artery stenosis of 70% with prolonged QT as well. She was sent home on aspirin and atorvastatin. She was discharged on October 08. Patient is and lives alone in her trailer. She does have a friend who is her emergency contact who is well aware of her health situation. I was able to speak with Radha and she states that she has been having decreased p.o. intake with increased sleeping. So far patient is the one who manages her own medicines but they have been trying to take over that role for her as a believe that she is accidentally overdosing herself. 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 Radha does state that patient did fall once today and has had frequent falls at home. Patient denies any head injury, headache, fever, chest pain, shortness of breath, abdominal pain, hip or back pain. History was otherwise limited as patient was fairly drowsy and not answering all of my questions appropriately. - Related Data Allergies/Adverse Reactions: Penicillins Allergy (Verified 10/01/19 08:39) itchiness and occasional diff breathing Past Medical History - General Cannot obtain history due to: Altered mental status - Social History Smoking Status: Current Every Day Smoker Family History: None, Reviewed & Not Pertinent, Other - Unobtainable Patient has suicidal ideation: No Patient has homicidal ideation: No Pulmonary Medical History: Reports: Hx COPD Neurological Medical History: Comment Only: Hx Seizures - UNKNOWN, AMS Endocrine Medical History: Reports: Hx Diabetes Mellitus Type 2, Hx Hypothyroidism Renal/ Medical History: Denies: Hx Peritoneal Dialysis Psychiatric Medical History: Reports: Hx Depression Traumatic Medical History: Denies: Hx Gunshot Wound, Hx Pneumothorax Infectious Medical History: Denies: Hx HIV Past Surgical History: Comment Only: Hx Hysterectomy - UNKNOW, AMS Review of Systems - Review of Systems -: Yes All other systems reviewed and negative Physical Exam - Vital signs Vitals: Temp Pulse Resp BP Pulse Ox 97.7 F 98 16 173/111 H 99 10/23/19 18:10 10/23/19 18:10 10/23/19 18:10 10/23/19 18:10 10/23/19 18:10 - Notes Notes: PHYSICAL EXAMINATION: GENERAL: Pt appears drowsy. Alert, but will doze off. Answers only some questions appropriately. HEAD: Atraumatic, normocephalic. Non-tender. EYES: Pupils equal and dilated but responsive, extraocular movements intact, sclera anicteric, conjunctiva are normal. Eyes appear proptotic. ENT: EAC clear b/l. TM's intact b/l without erythema, fluid, or perforation. Nares patent and without discharge. oropharynx clear without exudates. No tonsilar hypertrophy or erythema. Moist mucous membranes. NECK: Normal range of motion, supple without lymphadenopathy. No rigidity/meningismus. No midline tenderness. LUNGS: Breath sounds clear to auscultation bilaterally and equal. No wheezes rales or rhonchi. HEART: Regular rate and rhythm without murmurs, rubs, gallops. ABDOMEN: Soft, nontender, nondistended abdomen. No guarding, no rebound. Normal bowel sounds present. No CVA tenderness bilaterally. Musculoskeletal: No obvious tenderness to the pelvis/foot/extremities. there is some scant dried blood from the great toe left foot w/o significant laceration noted. Extremities: No cyanosis, clubbing, or edema b/l. Peripheral pulses 2+. Capillary refill less than 2 seconds. NEUROLOGICAL: GCS 15. Cranial nerves grossly intact. pt moving arms/legs. She does have some involuntary movements/twitching to her legs/arms as well on occasion. PSYCH: flat affect. drowsy, poor eye contact, see above as well. SKIN: Warm, Dry, normal turgor, no rashes or lesions noted. Course - Re-evaluation Re-evalutation: 10/23/19 20:26 I did consult with Dr. Vasquez who eval'd the patient. We will perform a comprehensive work up on her at this time to further evaluate the AMS. We will give labetolol for her BP IV and fluids. We will also place a mccann to further evaluate and monitor output. 10/23/19 21:22 I spoke with Poison Control for 30 minutes after pill counting her medicines. Pt has only been taking her Tegretol 20mmg XR and not her synthroid, lisinopril, cymbalta, amlodipine, gabapentin, nor metformin. To be specific, the bottle(s) of Gabapentin appeared full after being filled on 10/19. All of these meds were either filled on 10/19 or 10/20, but tegratol was 10/19. She received #90 tablets of tegretol and only has 16 left, meaning she took 74 over the course of 4 days. Poison control: Per poison control, does cause some anticholinergic effect with QUALITY SYSTEM MANAGER depression and sodium channel blockade. They do want us to continue monitoring for bowel sounds, urinary output, lunchroom monitor for conduction delays involving the QRS/QTC. They do recommend that if the QTC is over 500 to replace the magnesium and potassium to a high normal level which the potassium is currently at with a magnesium pending. If the Tegretol level is very high they would like EKGs performed every hour, otherwise serial EKGs every 4 hours unless magnesium is needed then you will need to increase the frequency. If there is any seizure to give a benzo. Give fluids and monitor the Tegretol levels for a peak and decline x2. Minimum observation is 12 to 24 hours as this is the XR Tegretol. We will perform the initial work-up with imaging and if unremarkable plan for admission for continued observation. 10/23/19 22:41 Labs as resulted. Imaging unremarkable. Tegratol level pending. I did speak with Dr. Minaya regarding admission and he would like her to go to ICU. I did speak with ICU, Dr. Gonzalez, who accepted pt for admit. He will be down to eval the patient. - Vital Signs Vital signs: Temp Pulse Resp BP Pulse Ox 97.7 F 98 14 209/144 H 99 10/23/19 18:10 10/23/19 18:10 10/23/19 18:53 10/23/19 18:53 10/23/19 18:53 - Laboratory Result Diagrams: 10/23/19 18:25 10/23/19 18:25 Laboratory results interpreted by me: 10/23/19 10/23/19 10/23/19 18:25 18:25 18:25 WBC 16.0 H Hgb 11.9 L MCH 26.8 L MCHC 31.9 L RDW 17.4 H Plt Count 671 H Lymph % (Auto) 10.9 L Absolute Neuts (auto) 13.4 H Seg Neutrophils % 84.1 H Sodium 135.1 L Potassium 5.5 H Chloride 95 L BUN 23 H Est GFR (MDRD) Non-Af 49 L Glucose 175 H Calcium 10.5 H AST 42 H TSH 19.60 H Urine Glucose (UA) Urine Blood Salicylates Acetaminophen 10/23/19 10/23/19 18:25 21:32 WBC Hgb MCH MCHC RDW Plt Count Lymph % (Auto) Absolute Neuts (auto) Seg Neutrophils % Sodium Potassium Chloride BUN Est GFR (MDRD) Non-Af Glucose Calcium AST TSH Urine Glucose (UA) 150 H Urine Blood MODERATE H Salicylates < 1.0 L Acetaminophen < 10 L Discharge - Discharge Clinical Impression: Drug overdose Qualifiers: Encounter type: initial encounter Injury intent: undetermined intent Qualified Code(s): T50.904A - Poisoning by unspecified drugs, medicaments and biological substances, undetermined, initial encounter AMS (altered mental status) Qualifiers: Altered mental status type: somnolence Qualified Code(s): R40.0 - Somnolence Condition: Fair Disposition: ADMITTED INPATIENT Admitting Provider: Dr. Gonzalez Unit Admitted: ICU Referrals: CLINTON TIDWELL MD [Primary Care Provider] - Follow up as needed
[2019-10-23] MEDS ORDERED: LABETALOL HCL INJ 20 MG/4 ML DISP.SYRIN IV ONE (20:16)
[2019-10-23 20:24] LABS: ALBUMIN 4.1 g/dL (3.5-5.0); ALKALINE PHOSPHATASE 97 U/L (38-126); ANION GAP 17 (5-19); ASPARTATE AMINO TRANSFERASE 42 U/L (14-36); BILIRUBIN,DIRECT 0.3 mg/dL (0.0-0.4); BILIRUBIN,TOTAL 0.4 mg/dL (0.2-1.3); BLOOD UREA NITROGEN 23 mg/dL (7-20); CALCIUM 10.5 mg/dL (8.4-10.2); CARBON DIOXIDE 23 mmol/L (22-30); CHLORIDE 95 mmol/L (98-107); GLUCOSE 175 mg/dL (75-110); POTASSIUM 5.5 mmol/L (3.6-5.0); TOTAL PROTEIN 7.3 g/dL (6.3-8.2)
[2019-10-23 20:30] LABS: ACETAMINOPHEN < 10 ug/mL (10-30); ALCOHOL < 10 mg/dL (NONE DETECTED); SALICYLATE < 1.0 mg/dL (2.0-20.0)
[2019-10-23 20:41] LABS: FREE T3 2.95 pg/mL (2.77-5.27); FREE T4 (FREE THYROXINE) 0.84 ng/dL (0.78-2.19)
[2019-10-23 20:55] LABS: THYROID STIMULATING HORMONE 19.6 uIU/mL (0.47-4.68)
--- NOTE | 2019-10-23 21:31 | RADIOLOGY REPORT (SQ) ---
EXAM DESCRIPTION: CT HEAD WITHOUT IV CONTRAST COMPLETED DATE/TME: 10/23/2019 19:55 CLINICAL HISTORY: 54 years, Female, AMS, recent acute infarct 1mo ago COMPARISON: Prior CT head from 09/28/2019 TECHNIQUE: Noncontrast CT of the head was performed. Coronal and sagittal reformations were created. Images stored on PACS. All CT scanners at this facility use dose modulation, iterative reconstruction, and/or weight based dosing when appropriate to reduce radiation dose to as low as reasonably achievable (ALARA). [facility]: Dose Right [facility]: CareDose [facility]: Dose Right [facility]: Teradose 4D [facility]: [employer] LIMITATIONS: None. FINDINGS: Evaluation of the brain parenchyma reveals mild periventricular and patchy subcortical white matter low attenuation. No acute intracranial hemorrhage, mass effect, or extra-axial fluid is seen. The ventricles and sulcal spaces are normal in size and configuration. Globes and orbits show no acute abnormality. The nasal septum is deviated towards the right with an associated nasal spur. Remaining paranasal sinuses and mastoid air cells are clear. No depressed skull fractures. IMPRESSION: No acute intracranial abnormality. Mild chronic microvascular ischemic change. TECHNICAL DOCUMENTATION: Quality ID # [id number]: Final reports with documentation of one or more dose reduction techniques (e.g., Automated exposure control, adjustment of the mA and/or kV according to patient size, use of iterative reconstruction technique) copyright 2011 [employer]- All Rights Reserved
--- NOTE | 2019-10-23 21:38 | RADIOLOGY REPORT (SQ) ---
XR CHEST 1 VIEW CLINICAL STATEMENT: AMS COMPARISON: 09/24/2019 FINDINGS: Cardiomediastinal silhouette is within normal limits. There is no focal lung consolidation or pleural effusion. No evidence of pulmonary edema or pneumothorax. IMPRESSION: No acute cardiopulmonary disease.
--- NOTE | 2019-10-23 21:39 | RADIOLOGY REPORT (SQ) ---
XR PELVIS 1-2 VIEWS CLINICAL STATEMENT: fall today, AMS COMPARISON: None FINDINGS: Bony alignment is anatomic. There is no fracture or dislocation. The soft tissues are unremarkable. Mild bilateral hip degenerative changes. IMPRESSION: No fracture.
--- NOTE | 2019-10-23 21:40 | RADIOLOGY REPORT (SQ) ---
EXAM DESCRIPTION: XR FOOT 3 OR MORE VIEWS COMPLETED DATE/TME: 10/23/2019 20:01 CLINICAL HISTORY: 54 years, Female, left great toe injury COMPARISON: None. NUMBER OF VIEWS: Three TECHNIQUE: Frontal, oblique, and lateral radiograph are obtained LIMITATIONS: None. FINDINGS: Moderate first MTP joint arthrosis is noted. There is an ossific density projecting adjacent to the lateral aspect of the first proximal phalangeal base. However, this appears corticated. Mild degenerative changes are noted about the third DIP joint. No additional osseous anomalies are appreciated. IMPRESSION: Ossific density projected adjacent to the lateral aspect of the first proximal phalangeal base, indicating an age-indeterminate fracture fragment. However, given is likely corticated, it is likely chronic. Correlate with point tenderness. Degenerative changes, as above. copyright 2010 [employer]- All Rights Reserved
[2019-10-23 21:53] LABS: APPEARANCE,URINE CLEAR; BILIRUBIN,URINE NEGATIVE (NEGATIVE); COLOR,URINE STRAW; GLUCOSE, URINE 150 mg/dL (NEGATIVE); KETONES,URINE NEGATIVE (NEGATIVE); LEUKOCYTE ESTERASE,URINE NEGATIVE (NEGATIVE); NITRITE,URINE NEGATIVE (NEGATIVE); PROTEIN,URINE NEGATIVE (NEGATIVE); URINE SPECIFIC GRAVITY 1.008; UROBILINOGEN,URINE NEGATIVE mg/dL (<2.0)
[2019-10-23 22:08] LABS: URINE AMPHETAMINES SCREEN NEGATIVE; URINE BARBITURATES SCREEN NEGATIVE; URINE BENZODIAZEPINES SCREEN NEGATIVE; URINE COCAINE SCREEN NEGATIVE; URINE MARIJUANA (THC) SCREEN NEGATIVE; URINE METHADONE SCREEN NEGATIVE; URINE PHENCYCLIDINE SCREEN NEGATIVE
--- NOTE | 2019-10-23 23:59 | EKG REPORT ---
SEVERITY:- ABNORMAL ECG - SINUS RHYTHM RIGHT ATRIAL ABNORMALITY CONSIDER ANTEROSEPTAL INFARCT BORDERLINE PROLONGED QT INTERVAL : Confirmed by: Catie Childers MD 23-Oct-2019 23:57:38
--- NOTE | 2019-10-23 23:59 | EKG REPORT ---
SEVERITY:- ABNORMAL ECG - SINUS RHYTHM BIATRIAL ABNORMALITIES CONSIDER ANTEROSEPTAL INFARCT BORDERLINE PROLONGED QT INTERVAL : Confirmed by: Catie Childers MD 23-Oct-2019 23:57:34
[2019-10-24] MEDS ORDERED: MAG HYDROX/AL HYDROX/SIMETH SUSP 30 ML UDCUP PO PRN (00:15)
[2019-10-24] MEDS ORDERED: IPRATROPIUM/ALBUTEROL 0.5-2.5 MG/3 ML AMPUL NEB PRN (00:15)
[2019-10-24] MEDS ORDERED: INFLUENZA QUAD (6MOS+) 2019-20 VAC 0.5 ML SYR IM ONE (02:32)
[2019-10-24] MEDS ORDERED: LACTULOSE SYRUP 20 GM/30 ML UDCUP PO ONE (05:56)
[2019-10-24] MEDS ORDERED: GLUCAGON,HUMAN RECOMB 1 MG INJ IM PRN (06:08)
[2019-10-24] MEDS ORDERED: DEXTROSE 50%-WATER 25 GM/50 ML DISP.SYRIN IV PRN ×2 (06:08)
[2019-10-24] MEDS ORDERED: DEXTROSE 40% GEL 15 GM TUBE PO PRN ×2 (06:08)
--- NOTE | 2019-10-24 06:09 | PDOC H&P ---
History of Present Illness Admission Date/PCP: 10/23/19 23:40 CLINTON TIDWELL MD Patient complains of: Odd behavior History of Present Illness: SHELLEY RODRÍGUEZ is a 54 year old female with a past medical history of COPD, diabetes, depression, alcohol, substance abuse and multiple medication overdoses. She presents with odd and withdrawn behavior. In the emergency room she is awake and alert oriented x3 with odd affect and a medication discrepancy of Tegretol concerning for overdose. Labs reveal normal Tegretol level, a baseline prolonged QT interval, leukocytosis and hyperkalemia. She is referred to the hospitalist for admission. Patient is uncooperative with exam denies complaints and says she is ready to go home. She denies use of aevm-nov-guusear medications for sleep. Reconciliation of her home medication reveal multiple unopened bottles of regular medication with exception to Tegretol. Past Medical History Pulmonary Medical History: Reports: Chronic Obstructive Pulmonary Disease (COPD) Neurological Medical History: Comment Only: Seizures - UNKNOWN, AMS Endocrine Medical History: Reports: Diabetes Mellitus Type 2, Hypothyroidism Psychiatric Medical History: Reports: Depression, Personality Disorder, Substance Abuse, Tobacco Dependency Traumatic Medical History: Denies: Gunshot Wound, Pneumothorax Hematology: Denies: Sickle Cell Disease Infectious Medical History: Denies: HIV Past Surgical History Past Surgical History: Comment Only: Hysterectomy - UNKNOW, AMS Social History Information Source: Patient Smoking Status: Unknown if Ever Smoked Electronic Cigarette use?: No Hx Recreational Drug Use: Yes Hx Prescription Drug Abuse: Yes - Advance Directive Resuscitation Status: Full Code Family History Family History: Other - Unobtainable Parental Family History Reviewed: Yes Children Family History Reviewed: Yes Sibling(s) Family History Reviewed.: Yes Medication/Allergy Home Medications: Amitriptyline HCl [Elavil 25 mg Tablet] 25 mg PO QHS 09/25/19 Amlodipine Besylate [Norvasc 10 mg Tablet] 10 mg PO DAILY 09/25/19 Carbamazepine [Carbamazepine ER] 200 mg PO BID 09/25/19 Duloxetine HCl [Cymbalta] 60 mg PO QAM 09/25/19 Gabapentin [Neurontin] 800 mg PO QID 09/25/19 Levothyroxine Sodium [Synthroid] 175 mcg PO Q6AM 09/25/19 Lisinopril [Prinivil 10 mg Tablet] 10 mg PO QHS 09/25/19 Metformin HCl [Glucophage] 1,000 mg PO BID 09/25/19 Tramadol HCl [Ultram 50 mg Tablet] 50 mg PO Q8 09/25/19 Aspirin [Aspir-Low] 81 mg PO DAILY #30 tablet. 10/08/19 Atorvastatin Calcium [Lipitor 80 mg Tablet] 80 mg PO QHS #30 tablet 10/08/19 Baclofen [Baclofen 10 mg Tablet] 1 - 2 tab PO TID 10/24/19 Allergies/Adverse Reactions: Penicillins Allergy (Verified 10/01/19 08:39) itchiness and occasional diff breathing Review of Systems ROS unobtainable: Due to mental status Physical Exam Vital Signs: Temp Pulse Resp BP Pulse Ox 97.6 F 84 16 174/97 H 100 10/24/19 01:48 10/24/19 01:48 10/24/19 01:48 10/24/19 01:48 10/24/19 01:48 Intake & Output 10/22/19 10/23/19 10/24/19 11:59 11:59 11:59 Intake Total 1000 Balance 1000 Weight 50.6 kg General appearance: PRESENT: no acute distress, disheveled, well-developed, well-nourished. ABSENT: cooperative Head exam: PRESENT: atraumatic, normocephalic Eye exam: PRESENT: conjunctiva pink, EOMI, PERRLA. ABSENT: scleral icterus Ear exam: PRESENT: normal external ear exam Mouth exam: PRESENT: moist, tongue midline Neck exam: ABSENT: carotid bruit, JVD, lymphadenopathy, thyromegaly Respiratory exam: PRESENT: clear to auscultation jaqueline. ABSENT: rales, rhonchi, wheezes Cardiovascular exam: PRESENT: RRR. ABSENT: diastolic murmur, rubs, systolic murmur Pulses: PRESENT: normal dorsalis pedis pul Vascular exam: PRESENT: normal capillary refill GI/Abdominal exam: PRESENT: normal bowel sounds, soft. ABSENT: distended, guarding, mass, organolmegaly, rebound, tenderness Rectal exam: PRESENT: deferred Extremities exam: PRESENT: other - Abrasions over the knees bilaterally without surrounding tenderness, erythema or exudate Neurological exam: PRESENT: altered, oriented to person, oriented to place, oriented to time, CN II-XII grossly intact Psychiatric exam: PRESENT: flat affect, unusual affect Skin exam: PRESENT: abrasion, other - 3 x 3 cm stage II sacral decubiti Results Laboratory Results: 10/23/19 18:25 10/23/19 18:25 10/23/19 10/23/19 10/23/19 18:25 18:25 18:25 WBC 16.0 H RBC 4.43 Hgb 11.9 L Hct 37.2 MCV 84 MCH 26.8 L MCHC 31.9 L RDW 17.4 H Plt Count 671 H Seg Neutrophils % 84.1 H Sodium 135.1 L Potassium 5.5 H Chloride 95 L Carbon Dioxide 23 Anion Gap 17 BUN 23 H Creatinine 1.14 Est GFR ( Amer) > 60 Glucose 175 H Calcium 10.5 H Magnesium Total Bilirubin 0.4 AST 42 H Alkaline Phosphatase 97 Total Protein 7.3 Albumin 4.1 TSH 19.60 H Free T4 0.84 Free T3 pg/mL 2.95 Urine Color Urine Appearance Urine pH Ur Specific [place] Urine Protein Urine Glucose (UA) Urine Ketones Urine Blood Urine Nitrite Ur Leukocyte Esterase Urine WBC (Auto) Urine RBC (Auto) 10/23/19 10/23/19 18:25 21:32 WBC RBC Hgb Hct MCV MCH MCHC RDW Plt Count Seg Neutrophils % Sodium Potassium Chloride Carbon Dioxide Anion Gap BUN Creatinine Est GFR ( Amer) Glucose Calcium Magnesium 1.9 Total Bilirubin AST Alkaline Phosphatase Total Protein Albumin TSH Free T4 Free T3 pg/mL Urine Color STRAW Urine Appearance CLEAR Urine pH 7.0 Ur Specific [place] 1.008 Urine Protein NEGATIVE Urine Glucose (UA) 150 H Urine Ketones NEGATIVE Urine Blood MODERATE H Urine Nitrite NEGATIVE Ur Leukocyte Esterase NEGATIVE Urine WBC (Auto) 1 Urine RBC (Auto) 0 10/23/19 18:25 Troponin I < 0.012 Impressions: Chest X-Ray 10/23/19 19:55 IMPRESSION: No acute cardiopulmonary disease. Head CT 10/23/19 19:55 IMPRESSION: No acute intracranial abnormality. Mild chronic microvascular ischemic change. TECHNICAL DOCUMENTATION: Quality ID # [id number]: Final reports with documentation of one or more dose reduction techniques (e.g., Automated exposure control, adjustment of the mA and/or kV according to patient size, use of iterative reconstruction technique) copyright 2011 [employer]- All Rights Reserved Foot X-Ray 10/23/19 20:01 IMPRESSION: Ossific density projected adjacent to the lateral aspect of the first proximal phalangeal base, indicating an age-indeterminate fracture fragment. However, given is likely corticated, it is likely chronic. Correlate with point tenderness. Degenerative changes, as above. copyright 2011 [employer]- All Rights Reserved Pelvis X-Ray 10/23/19 20:22 IMPRESSION: No fracture. Assessment and Plan - Diagnosis (1) Altered mental status Qualifiers: Altered mental status type: somnolence Qualified Code(s): R40.0 - Somnolence Is this a current diagnosis for this admission?: Yes Plan: Bizarre behavior, likely multifactorial secondary to medication in addition to personality disorder. Trial Abilify, denies suicidal ideation. Follow-up TSH, urine drug screen, carbamazepine level and CBC (2) Hyperkalemia Is this a current diagnosis for this admission?: Yes Plan: Unclear cause, trial lactulose, follow-up chemistry (3) Leukocytosis Is this a current diagnosis for this admission?: Yes Plan: Unclear cause, afebrile, follow-up CBC (4) Diabetes Is this a current diagnosis for this admission?: Yes [facility]
[2019-10-24] MEDS: HEPARIN SOD (PORCINE) 5,000 UNIT/ML 1 ML VIAL SUBCUT SCH ×3 (06:22→21:32)
[2019-10-24] MEDS: NORMAL SALINE 1000 ML 1,000 ML IV PRN ×2 (06:23→14:37)
[2019-10-24 07:30] LABS: ABSOLUTE BASOPHILS # (AUTO) 0.1 10^3/uL (0.0-0.2); ABSOLUTE EOSINOPHILS # (AUTO) 0.1 10^3/uL (0.0-0.6); ABSOLUTE LYMPHOCYTES (AUTO) 2.3 10^3/uL (0.5-4.7); ABSOLUTE MONOCYTES (AUTO) 0.5 10^3/uL (0.1-1.4); ABSOLUTE NEUT (AUTO) 6.9 10^3/uL (1.7-8.2); BASOPHILS % (AUTO) 0.9 % (0-2); EOSINOPHILS % (AUTO) 1.4 % (0-6); HEMATOCRIT 36.4 % (36.0-47.0); HEMOGLOBIN 12.3 g/dL (12.0-15.5); LYMPHOCYTES % (AUTO) 23.2 % (13-45); MEAN CORPUSCULAR HEMOGLOBIN 27.7 pg (27.0-33.4); MEAN CORPUSCULAR HGB CONC 33.7 g/dL (32.0-36.0); MEAN CORPUSCULAR VOLUME 82 fl (80-97); MONOCYTES % (AUTO) 4.7 % (3-13); PLATELET COUNT 559 10^3/uL (150-450); RED BLOOD COUNT 4.43 10^6/uL (3.72-5.28); RED CELL DISTRIBUTION WIDTH 17.2 % (11.5-14.0); SEGMENTED NEUTROPHILS % (AUTO) 69.8 % (42-78); TOTAL CELLS COUNTED % (AUTO) 100 %; WHITE BLOOD COUNT 9.9 10^3/uL (4.0-10.5)
[2019-10-24] MEDS: INSULIN LISPRO 100 UNIT/ML 3 ML VIAL SUBCUT SCH ×3 (07:35→16:05)
[2019-10-24 08:09] LABS: ALBUMIN 3.6 g/dL (3.5-5.0); ALKALINE PHOSPHATASE 117 U/L (38-126); ANION GAP 9 (5-19); ASPARTATE AMINO TRANSFERASE 100 U/L (14-36); BILIRUBIN,DIRECT 0.2 mg/dL (0.0-0.4); BILIRUBIN,TOTAL 0.4 mg/dL (0.2-1.3); BLOOD UREA NITROGEN 15 mg/dL (7-20); CALCIUM 9.5 mg/dL (8.4-10.2); CARBON DIOXIDE 29 mmol/L (22-30); CHLORIDE 100 mmol/L (98-107); GLUCOSE 117 mg/dL (75-110); TOTAL PROTEIN 6.6 g/dL (6.3-8.2)
[2019-10-24] MEDS: DOCUSATE SODIUM 100 MG CAPSULE PO SCH ×2 (09:36→17:02)
[2019-10-24] MEDS: METOPROLOL TARTRATE 25 MG TABLET PO SCH ×2 (09:36→21:32)
[2019-10-24] MEDS: ARIPIPRAZOLE 5 MG TABLET PO SCH (09:47)
[2019-10-24] MEDS: ALBUTEROL SULFATE 0.083% NEB 2.5 MG/3 ML AMPUL NEB SCH ×2 (09:51→19:48)
--- NOTE | 2019-10-24 15:45 | PDOC PROGRESS REPORT ---
Subjective Progress Note for:: 10/24/19 Subjective:: No adverse events overnight. No new complaints. She denies any attempt to harm herself or any desire to do so. She says she lives with her mother and that her mother manages her medications. Apparently she is actually renting a room from a man down here who is not her mother and no one is seemingly helping her with her medications. Her TSH was elevated. Her serial carbamazepine levels are declining and are actually low. Reason For Visit: AMS,OD,HX SUICIDE ATTEMPTS Physical Exam Vital Signs: Temp Pulse Resp BP Pulse Ox 97.7 F 91 18 192/93 H 97 10/24/19 08:16 10/24/19 09:58 10/24/19 09:58 10/24/19 08:16 10/24/19 09:58 Intake & Output 10/23/19 10/24/19 10/25/19 06:59 06:59 06:59 Intake Total 1000 1000 Output Total 900 Balance 100 1000 Weight 50.6 kg General appearance: PRESENT: no acute distress, cooperative, disheveled Respiratory exam: PRESENT: clear to auscultation jaqueline, symmetrical, unlabored. ABSENT: accessory muscle use, chest wall tenderness, crackles, prolonged expiratory phas, rhonchi, tachypnea, wheezes Cardiovascular exam: PRESENT: RRR, +S1, +S2 Pulses: PRESENT: normal carotid pulses Vascular exam: PRESENT: normal capillary refill GI/Abdominal exam: PRESENT: normal bowel sounds, soft, tenderness. ABSENT: distended, guarding, rebound Extremities exam: ABSENT: clubbing, pedal edema Musculoskeletal exam: PRESENT: deformity, normal inspection Neurological exam: PRESENT: alert, awake, oriented to person. ABSENT: oriented to situation Psychiatric exam: PRESENT: flat affect. ABSENT: homicidal ideation, suicidal ideation Skin exam: PRESENT: dry, warm Results Laboratory Results: 10/24/19 07:07 10/24/19 07:07 10/23/19 10/23/19 10/23/19 18:25 18:25 18:25 WBC 16.0 H RBC 4.43 Hgb 11.9 L Hct 37.2 MCV 84 MCH 26.8 L MCHC 31.9 L RDW 17.4 H Plt Count 671 H Seg Neutrophils % 84.1 H Sodium 135.1 L Potassium 5.5 H Chloride 95 L Carbon Dioxide 23 Anion Gap 17 BUN 23 H Creatinine 1.14 Est GFR ( Amer) > 60 Glucose 175 H Calcium 10.5 H Magnesium Total Bilirubin 0.4 AST 42 H Alkaline Phosphatase 97 Total Protein 7.3 Albumin 4.1 TSH 19.60 H Free T4 0.84 Free T3 pg/mL 2.95 Urine Color Urine Appearance Urine pH Ur Specific [place] Urine Protein Urine Glucose (UA) Urine Ketones Urine Blood Urine Nitrite Ur Leukocyte Esterase Urine WBC (Auto) Urine RBC (Auto) 10/23/19 10/23/19 10/24/19 18:25 21:32 07:07 WBC 9.9 RBC 4.43 Hgb 12.3 Hct 36.4 MCV 82 MCH 27.7 MCHC 33.7 RDW 17.2 H Plt Count 559 H Seg Neutrophils % 69.8 Sodium Potassium Chloride Carbon Dioxide Anion Gap BUN Creatinine Est GFR ( Amer) Glucose Calcium Magnesium 1.9 Total Bilirubin AST Alkaline Phosphatase Total Protein Albumin TSH Free T4 Free T3 pg/mL Urine Color STRAW Urine Appearance CLEAR Urine pH 7.0 Ur Specific [place] 1.008 Urine Protein NEGATIVE Urine Glucose (UA) 150 H Urine Ketones NEGATIVE Urine Blood MODERATE H Urine Nitrite NEGATIVE Ur Leukocyte Esterase NEGATIVE Urine WBC (Auto) 1 Urine RBC (Auto) 0 10/24/19 07:07 WBC RBC Hgb Hct MCV MCH MCHC RDW Plt Count Seg Neutrophils % Sodium 137.5 Potassium 4.0 D Chloride 100 Carbon Dioxide 29 Anion Gap 9 BUN 15 Creatinine 0.91 Est GFR ( Amer) > 60 Glucose 117 H Calcium 9.5 Magnesium Total Bilirubin 0.4 AST 100 H Alkaline Phosphatase 117 Total Protein 6.6 Albumin 3.6 TSH Free T4 Free T3 pg/mL Urine Color Urine Appearance Urine pH Ur Specific [place] Urine Protein Urine Glucose (UA) Urine Ketones Urine Blood Urine Nitrite Ur Leukocyte Esterase Urine WBC (Auto) Urine RBC (Auto) 10/23/19 18:25 Troponin I < 0.012 Impressions: Chest X-Ray 10/23/19 19:55 IMPRESSION: No acute cardiopulmonary disease. Head CT 10/23/19 19:55 IMPRESSION: No acute intracranial abnormality. Mild chronic microvascular ischemic change. TECHNICAL DOCUMENTATION: Quality ID # 436: Final reports with documentation of one or more dose reduction techniques (e.g., Automated exposure control, adjustment of the mA and/or kV according to patient size, use of iterative reconstruction technique) copyright 2011 [employer]- All Rights Reserved Foot X-Ray 10/23/19 20:01 IMPRESSION: Ossific density projected adjacent to the lateral aspect of the first proximal phalangeal base, indicating an age-indeterminate fracture fragment. However, given is likely corticated, it is likely chronic. Correlate with point tenderness. Degenerative changes, as above. copyright 2010 [employer]- All Rights Reserved Pelvis X-Ray 10/23/19 20:22 IMPRESSION: No fracture. Assessment and Plan - Diagnosis (1) Drug overdose Qualifiers: Encounter type: initial encounter Injury intent: undetermined intent Qualified Code(s): T50.904A - Poisoning by unspecified drugs, medicaments and biological substances, undetermined, initial encounter Is this a current diagnosis for this admission?: Yes Plan: I believe this is ruled out. The concern was that she has been taken too much of her Tegretol. However, her Tegretol level when she came in was only 4.5, and the next one that was checked several hours later was 3.7, and the next after that was 3.6. Therefore I do not believe that she overdosed. This patient has a somewhat unusual affect and I believe that this is baseline for her based on my previous encounters with her in this hospital. She denies any suicidal ideation or thoughts of harming herself. She told me that she lives with her mother but we know that she is actually living with someone she rents a room from. I asked her how old her mother was and she said her mother was 50. This patient is 54 years old herself. The patient says that she is from [place] but she could not tell me why she moved to [place]. She told me that she ate breakfast this morning but she could not recall what it was. This is all fairly typical for her in my experience. I do not believe she is suicidal. (2) Acute metabolic encephalopathy Is this a current diagnosis for this admission?: Yes Plan: She may have been a little dehydrated and we have given her some IV fluids. Also, I do not think she is been taking her Synthroid because her TSH was almost 20. We will make sure she gets that here. I believe this patient's mental status is most likely at its baseline. This is based on my prior interactions with her in this hospital. I think that she probably should be in an assisted living facility because I do not think that she has the intellectual capacity to take care of herself and manage her affairs, including her medications. I noted that she has an [employer]PS take out waiter, and we will try to catch up with them on Saturday to plan an appropriate disposition for this patient. - Time Time Spent with patient: 25-34 minutes
[2019-10-24] MEDS: METFORMIN HCL 500 MG TABLET PO SCH (17:02)
[2019-10-24] MEDS: ATORVASTATIN CALCIUM 80 MG TABLET PO SCH (21:32)
[2019-10-24] MEDS: LISINOPRIL 10 MG TABLET PO SCH (21:32)
[2019-10-24] MEDS: CARBAMAZEPINE 200 MG TAB.SR.12H PO SCH (21:33)
[2019-10-24] MEDS ORDERED: (PENDING PHARMACY ID) (Carbamazepine [Carbamazepine Er] 200 MG) PO SCH (22:00)
[2019-10-25] MEDS: LEVOTHYROXINE SODIUM 0.075 MG TABLET PO SCH (05:53)
[2019-10-25] MEDS: HEPARIN SOD (PORCINE) 5,000 UNIT/ML 1 ML VIAL SUBCUT SCH ×3 (05:53→21:31)
[2019-10-25] MEDS: LEVOTHYROXINE SODIUM 0.1 MG TABLET PO SCH (05:53)
[2019-10-25] MEDS ORDERED: (PENDING PHARMACY ID) (Levothyroxine Sodium [Synthroid] 175 MCG) PO SCH (06:00)
[2019-10-25 06:07] LABS: ABSOLUTE BASOPHILS # (AUTO) 0.1 10^3/uL (0.0-0.2); ABSOLUTE EOSINOPHILS # (AUTO) 0.3 10^3/uL (0.0-0.6); ABSOLUTE LYMPHOCYTES (AUTO) 3.7 10^3/uL (0.5-4.7); ABSOLUTE MONOCYTES (AUTO) 0.5 10^3/uL (0.1-1.4); ABSOLUTE NEUT (AUTO) 4.5 10^3/uL (1.7-8.2); BASOPHILS % (AUTO) 1.2 % (0-2); EOSINOPHILS % (AUTO) 2.8 % (0-6); HEMOGLOBIN 10.3 g/dL (12.0-15.5); LYMPHOCYTES % (AUTO) 40.4 % (13-45); MEAN CORPUSCULAR HEMOGLOBIN 27.7 pg (27.0-33.4); MEAN CORPUSCULAR HGB CONC 33.2 g/dL (32.0-36.0); MEAN CORPUSCULAR VOLUME 83 fl (80-97); PLATELET COUNT 467 10^3/uL (150-450); RED BLOOD COUNT 3.72 10^6/uL (3.72-5.28); RED CELL DISTRIBUTION WIDTH 17.7 % (11.5-14.0); SEGMENTED NEUTROPHILS % (AUTO) 49.6 % (42-78); TOTAL CELLS COUNTED % (AUTO) 100 %; WHITE BLOOD COUNT 9.1 10^3/uL (4.0-10.5)
[2019-10-25 06:49] LABS: ALKALINE PHOSPHATASE 84 U/L (38-126); ANION GAP 8 (5-19); ASPARTATE AMINO TRANSFERASE 83 U/L (14-36); BILIRUBIN,DIRECT 0.1 mg/dL (0.0-0.4); BILIRUBIN,TOTAL 0.2 mg/dL (0.2-1.3); BLOOD UREA NITROGEN 16 mg/dL (7-20); CALCIUM 8.9 mg/dL (8.4-10.2); CARBON DIOXIDE 27 mmol/L (22-30); CHLORIDE 100 mmol/L (98-107); GLUCOSE 99 mg/dL (75-110); POTASSIUM 4.3 mmol/L (3.6-5.0); TOTAL PROTEIN 5.5 g/dL (6.3-8.2)
[2019-10-25] MEDS ORDERED: (PENDING PHARMACY ID) (Lisinopril [Lisinopril] 20 MG) PO SCH (08:00)
[2019-10-25] MEDS: ALBUTEROL SULFATE 0.083% NEB 2.5 MG/3 ML AMPUL NEB SCH ×2 (08:37→19:46)
[2019-10-25] MEDS: INSULIN LISPRO 100 UNIT/ML 3 ML VIAL SUBCUT SCH ×3 (08:48→15:46)
[2019-10-25] MEDS: LISINOPRIL 10 MG TABLET PO SCH ×2 (08:52→21:31)
[2019-10-25] MEDS: DULOXETINE HCL 30 MG CAPSULE.DR PO SCH (08:52)
[2019-10-25] MEDS: METFORMIN HCL 500 MG TABLET PO SCH ×2 (10:52→18:29)
[2019-10-25] MEDS: METOPROLOL TARTRATE 25 MG TABLET PO SCH ×2 (10:52→21:31)
[2019-10-25] MEDS: ASPIRIN 81 MG TABLET, ENT COATED PO SCH (10:52)
[2019-10-25] MEDS: DOCUSATE SODIUM 100 MG CAPSULE PO SCH ×2 (10:52→18:29)
[2019-10-25] MEDS: ARIPIPRAZOLE 5 MG TABLET PO SCH (10:54)
[2019-10-25] MEDS: AMLODIPINE BESYLATE 10 MG TABLET PO SCH (10:54)
[2019-10-25] MEDS: CARBAMAZEPINE 200 MG TAB.SR.12H PO SCH ×2 (10:55→21:31)
--- NOTE | 2019-10-25 16:33 | PDOC PROGRESS REPORT ---
Subjective Progress Note for:: 10/25/19 Subjective:: No adverse events overnight. No new complaints. She seems more alert and interactive today. We had started her back on some of her medications, holding some of her sedating medications were resuming such things as her Synthroid. Her TSH was almost 20 whenever she came in, and the patient claimed that she has been taking all of her medications as prescribed but this may not be entirely reliable. Today she was able to tell me that she lives with someone she rents a room from where yesterday she told me she lives with her mother. She did say that she was from [place] but that she moved down here a couple of years ago because she had some friends in this area and it was cheaper for her to live here. Her appetite has improved substantially. Reason For Visit: AMS,OD,HX SUICIDE ATTEMPTS Physical Exam Vital Signs: Temp Pulse Resp BP Pulse Ox 98.6 F 62 18 131/64 H 97 10/25/19 00:05 10/25/19 14:00 10/25/19 08:38 10/25/19 00:05 10/25/19 08:38 Intake & Output 10/24/19 10/25/19 10/26/19 06:59 06:59 06:59 Intake Total 1000 2000 480 Output Total 900 1200 725 Balance 100 800 -245 Weight 50.6 kg 52.4 kg General appearance: PRESENT: no acute distress, cooperative, disheveled Respiratory exam: PRESENT: clear to auscultation jaqueline, symmetrical, unlabored. ABSENT: accessory muscle use, chest wall tenderness, crackles, prolonged expiratory phas, rhonchi, tachypnea, wheezes Cardiovascular exam: PRESENT: RRR, +S1, +S2 Pulses: PRESENT: normal carotid pulses Vascular exam: PRESENT: normal capillary refill GI/Abdominal exam: PRESENT: normal bowel sounds, soft, tenderness. ABSENT: distended, guarding, rebound Extremities exam: ABSENT: clubbing, pedal edema Musculoskeletal exam: PRESENT: deformity, normal inspection Neurological exam: PRESENT: alert, awake, oriented to person, oriented to place, oriented to situation Psychiatric exam: PRESENT: flat affect. ABSENT: homicidal ideation, suicidal ideation Skin exam: PRESENT: dry, warm Results Laboratory Results: 10/25/19 05:16 10/25/19 05:16 10/25/19 10/25/19 05:16 05:16 WBC 9.1 RBC 3.72 Hgb 10.3 L Hct 31.0 L MCV 83 MCH 27.7 MCHC 33.2 RDW 17.7 H Plt Count 467 H Seg Neutrophils % 49.6 Sodium 135.2 L Potassium 4.3 Chloride 100 Carbon Dioxide 27 Anion Gap 8 BUN 16 Creatinine 0.99 Est GFR ( Amer) > 60 Glucose 99 Calcium 8.9 Total Bilirubin 0.2 AST 83 H Alkaline Phosphatase 84 Total Protein 5.5 L Albumin 3.0 L 10/23/19 21:32 Catheterized Urine Urine Culture - Final NO GROWTH 2 DAYS 10/23/19 18:25 Troponin I < 0.012 Impressions: Chest X-Ray 10/23/19 19:55 IMPRESSION: No acute cardiopulmonary disease. Head CT 10/23/19 19:55 IMPRESSION: No acute intracranial abnormality. Mild chronic microvascular ischemic change. TECHNICAL DOCUMENTATION: Quality ID # 436: Final reports with documentation of one or more dose reduction techniques (e.g., Automated exposure control, adjustment of the mA and/or kV according to patient size, use of iterative reconstruction technique) copyright 2010 [employer]- All Rights Reserved Foot X-Ray 10/23/19 20:01 IMPRESSION: Ossific density projected adjacent to the lateral aspect of the first proximal phalangeal base, indicating an age-indeterminate fracture fragment. However, given is likely corticated, it is likely chronic. Correlate with point tenderness. Degenerative changes, as above. copyright 2010 [employer]- All Rights Reserved Pelvis X-Ray 10/23/19 20:22 IMPRESSION: No fracture. Assessment and Plan - Diagnosis (1) Drug overdose Qualifiers: Encounter type: initial encounter Injury intent: undetermined intent Qualified Code(s): T50.904A - Poisoning by unspecified drugs, medicaments and biological substances, undetermined, initial encounter Is this a current diagnosis for this admission?: Yes Plan: Ruled out. I do not believe that she overdosed, and she denies taking more of her medication that she should, and she denies any thoughts of harming herself. Since she displays no danger signs, and the diagnosis of overdose was conjecture in the first place, I have taken her off of suicide precautions and canceled her psychiatric evaluation. (2) Acute metabolic encephalopathy Is this a current diagnosis for this admission?: Yes Plan: I think that it is more likely that her presentation is due to the fact that she was most likely not taking her Synthroid. I gave her her Synthroid for a day and she is had a dramatic improvement from yesterday. I still think that if she is not in an assisted living situation where she can be monitored a little bit, that she will likely have recurrent trips to the hospital for issues like this. - Time Time Spent with patient: 15-24 minutes
[2019-10-25] MEDS: ATORVASTATIN CALCIUM 80 MG TABLET PO SCH (21:30)
[2019-10-26] MEDS: LEVOTHYROXINE SODIUM 0.1 MG TABLET PO SCH (06:24)
[2019-10-26] MEDS: LEVOTHYROXINE SODIUM 0.075 MG TABLET PO SCH (06:26)
[2019-10-26] MEDS: HEPARIN SOD (PORCINE) 5,000 UNIT/ML 1 ML VIAL SUBCUT SCH ×3 (06:26→22:35)
[2019-10-26] MEDS: ALBUTEROL SULFATE 0.083% NEB 2.5 MG/3 ML AMPUL NEB SCH (08:22)
[2019-10-26] MEDS: INSULIN LISPRO 100 UNIT/ML 3 ML VIAL SUBCUT SCH ×3 (08:31→17:35)
[2019-10-26] MEDS: AMLODIPINE BESYLATE 10 MG TABLET PO SCH (09:04)
[2019-10-26] MEDS: DULOXETINE HCL 30 MG CAPSULE.DR PO SCH (09:04)
[2019-10-26] MEDS: METFORMIN HCL 500 MG TABLET PO SCH ×2 (09:04→17:39)
[2019-10-26] MEDS: DOCUSATE SODIUM 100 MG CAPSULE PO SCH ×2 (09:04→17:39)
[2019-10-26] MEDS: ARIPIPRAZOLE 5 MG TABLET PO SCH (09:04)
[2019-10-26] MEDS: METOPROLOL TARTRATE 25 MG TABLET PO SCH ×2 (09:05→22:34)
[2019-10-26] MEDS: ASPIRIN 81 MG TABLET, ENT COATED PO SCH (09:05)
[2019-10-26] MEDS: LISINOPRIL 10 MG TABLET PO SCH ×2 (09:05→22:34)
[2019-10-26] MEDS: CARBAMAZEPINE 200 MG TAB.SR.12H PO SCH ×2 (09:05→22:38)
--- NOTE | 2019-10-26 17:58 | PDOC PROGRESS REPORT ---
Subjective Progress Note for:: 10/26/19 Subjective:: No adverse events overnight. No new complaints. Vital signs been stable. APS notified us today that the patient has been evicted from her current living situation. Reason For Visit: AMS,OD,HX SUICIDE ATTEMPTS Physical Exam Vital Signs: Temp Pulse Resp BP Pulse Ox 98.6 F 80 16 120/72 100 10/26/19 12:00 10/26/19 14:00 10/26/19 12:00 10/26/19 12:00 10/26/19 12:00 Intake & Output 10/25/19 10/26/19 10/27/19 06:59 06:59 06:59 Intake Total 1999 840 608 Output Total 1200 3325 400 Balance 800 -2485 208 Weight 52.4 kg 53.8 kg General appearance: PRESENT: no acute distress, cooperative, disheveled Respiratory exam: PRESENT: clear to auscultation jaqueline, symmetrical, unlabored. ABSENT: accessory muscle use, chest wall tenderness, crackles, prolonged expiratory phas, rhonchi, tachypnea, wheezes Cardiovascular exam: PRESENT: RRR, +S1, +S2 Pulses: PRESENT: normal carotid pulses Vascular exam: PRESENT: normal capillary refill GI/Abdominal exam: PRESENT: normal bowel sounds, soft, tenderness. ABSENT: distended, guarding, rebound Extremities exam: ABSENT: clubbing, pedal edema Musculoskeletal exam: PRESENT: deformity, normal inspection Neurological exam: PRESENT: alert, awake, oriented to person, oriented to place, oriented to situation Psychiatric exam: PRESENT: flat affect. ABSENT: homicidal ideation, suicidal ideation Skin exam: PRESENT: dry, warm Results Laboratory Results: 10/25/19 05:16 10/25/19 05:16 10/23/19 21:32 Catheterized Urine Urine Culture - Final NO GROWTH 2 DAYS 10/23/19 18:25 Troponin I < 0.012 Impressions: Chest X-Ray 10/23/19 19:55 IMPRESSION: No acute cardiopulmonary disease. Head CT 10/23/19 19:55 IMPRESSION: No acute intracranial abnormality. Mild chronic microvascular ischemic change. TECHNICAL DOCUMENTATION: Quality ID # [id number]: Final reports with documentation of one or more dose reduction techniques (e.g., Automated exposure control, adjustment of the mA and/or kV according to patient size, use of iterative reconstruction technique) copyright 2011 [employer]- All Rights Reserved Foot X-Ray 10/23/19 20:01 IMPRESSION: Ossific density projected adjacent to the lateral aspect of the first proximal phalangeal base, indicating an age-indeterminate fracture fragment. However, given is likely corticated, it is likely chronic. Correlate with point tenderness. Degenerative changes, as above. copyright 2010 [employer]- All Rights Reserved Pelvis X-Ray 10/23/19 20:22 IMPRESSION: No fracture. Assessment and Plan - Diagnosis (1) Drug overdose Qualifiers: Encounter type: initial encounter Injury intent: undetermined intent Q ualified Code(s): T50.904A - Poisoning by unspecified drugs, medicaments and biological substances, undetermined, initial encounter Is this a current diagnosis for this admission?: Yes Plan: Ruled out. I do not believe that she overdosed, and she denies taking more of her medication that she should, and she denies any thoughts of harming herself. Since she displays no danger signs, and the diagnosis of overdose was conjecture in the first place, I have taken her off of suicide precautions and canceled her psychiatric evaluation. (2) Acute metabolic encephalopathy Is this a current diagnosis for this admission?: Yes Plan: I think that it is more likely that her presentation is due to the fact that she was most likely not taking her Synthroid. I gave her her Synthroid for a day and she is had a dramatic improvement from yesterday. I still think that if she is not in an assisted living situation where she can be monitored a little bit, that she will likely have recurrent trips to the hospital for issues like this. - Plan Summary Summary: Patient has been evicted from her current living situation, and I do not think that she is safe to live by herself. Her [employer] food and beverage controller has been notified. - Time Time Spent with patient: 15-24 minutes
[2019-10-26] MEDS: ATORVASTATIN CALCIUM 80 MG TABLET PO SCH (22:34)
[2019-10-27] MEDS: DIAZEPAM INJ 10 MG/2 ML DISP.SYRIN IV PRN ×2 (03:27→22:24)
[2019-10-27] MEDS: HEPARIN SOD (PORCINE) 5,000 UNIT/ML 1 ML VIAL SUBCUT SCH ×3 (06:15→22:17)
[2019-10-27] MEDS: LEVOTHYROXINE SODIUM 0.1 MG TABLET PO SCH (06:16)
[2019-10-27] MEDS: LEVOTHYROXINE SODIUM 0.075 MG TABLET PO SCH (06:16)
[2019-10-27] MEDS: INSULIN LISPRO 100 UNIT/ML 3 ML VIAL SUBCUT SCH ×3 (09:09→15:06)
[2019-10-27] MEDS: ARIPIPRAZOLE 5 MG TABLET PO SCH (09:53)
[2019-10-27] MEDS: DOCUSATE SODIUM 100 MG CAPSULE PO SCH ×2 (09:54→17:18)
[2019-10-27] MEDS: DULOXETINE HCL 30 MG CAPSULE.DR PO SCH (09:54)
[2019-10-27] MEDS: METOPROLOL TARTRATE 25 MG TABLET PO SCH ×2 (09:54→22:18)
[2019-10-27] MEDS: METFORMIN HCL 500 MG TABLET PO SCH ×2 (09:54→17:18)
[2019-10-27] MEDS: LISINOPRIL 10 MG TABLET PO SCH ×2 (09:54→22:18)
[2019-10-27] MEDS: ASPIRIN 81 MG TABLET, ENT COATED PO SCH (09:54)
[2019-10-27] MEDS: CARBAMAZEPINE 200 MG TAB.SR.12H PO SCH ×2 (09:55→22:17)
[2019-10-27] MEDS: AMLODIPINE BESYLATE 10 MG TABLET PO SCH (09:55)
--- NOTE | 2019-10-27 15:18 | PDOC PROGRESS REPORT ---
Subjective Progress Note for:: 10/27/19 Reason For Visit: AMS,OD,HX SUICIDE ATTEMPTS 10/27/2019 She states that she his been not taking her medication properly, this was accidental and not on purpose Physical Exam Vital Signs: Temp Pulse Resp BP Pulse Ox 97.4 F 89 16 173/79 H 99 10/27/19 07:32 10/27/19 08:06 10/27/19 08:06 10/27/19 07:32 10/27/19 08:06 Intake & Output 10/26/19 10/27/19 10/28/19 06:59 06:59 06:59 Intake Total 840 1168 Output Total 3325 2250 Balance -7605 -082 Weight 53.8 kg 52.6 kg General appearance: PRESENT: no acute distress Respiratory exam: PRESENT: clear to auscultation jaqueline. ABSENT: rales, rhonchi, wheezes Cardiovascular exam: PRESENT: RRR. ABSENT: diastolic murmur, rubs, systolic murmur Neurological exam: PRESENT: alert, awake, oriented to person, oriented to place, oriented to time, oriented to situation, CN II-XII grossly intact, other - Patient carried on a normal conversation with me. ABSENT: motor sensory deficit Psychiatric exam: PRESENT: appropriate affect, normal mood, other - No evidence of suicidal or homicidal ideations She requested going to assisted living from discharge if at all possible. ABSENT: homicidal ideation, suicidal ideation Results Laboratory Results: 10/25/19 05:16 10/25/19 05:16 10/23/19 18:25 Troponin I < 0.012 Impressions: Chest X-Ray 10/23/19 19:55 IMPRESSION: No acute cardiopulmonary disease. Head CT 10/23/19 19:55 IMPRESSION: No acute intracranial abnormality. Mild chronic microvascular ischemic change. TECHNICAL DOCUMENTATION: Quality ID # [id number]: Final reports with documentation of one or more dose reduction techniques (e.g., Automated exposure control, adjustment of the mA and/or kV according to patient size, use of iterative reconstruction technique) copyright 2010 [employer]- All Rights Reserved Foot X-Ray 10/23/19 20:01 IMPRESSION: Ossific density projected adjacent to the lateral aspect of the first proximal phalangeal base, indicating an age-indeterminate fracture fragment. However, given is likely corticated, it is likely chronic. Correlate with point tenderness. Degenerative changes, as above. copyright 2010 [employer]- All Rights Reserved Pelvis X-Ray 10/23/19 20:22 IMPRESSION: No fracture. Assessment and Plan - Diagnosis (1) Altered mental status Qualifiers: Altered mental status type: somnolence Qualified Code(s): R40.0 - Somnolence Is this a current diagnosis for this admission?: Yes (2) Diabetes Is this a current diagnosis for this admission?: Yes (3) Drug overdose Qualifiers: Encounter type: initial encounter Injury intent: undetermined intent Qualified Code(s): T50.904A - Poisoning by unspecified drugs, medicaments and biological substances, undetermined, initial encounter Is this a current diagnosis for this admission?: Yes (4) Hypothyroidism Qualifiers: Hypothyroidism type: unspecified Qualified Code(s): E03.9 - Hypothyroidism, unspecified Is this a current diagnosis for this admission?: Yes (5) Leukocytosis Is this a current diagnosis for this admission?: Yes - Plan Summary Summary: Patient has been evicted from her current living situation, and I do not think that she is safe to live by herself. Her APS registered nurse teacher has been notified. 10/27/2019 Patient states she is not suicidal and in fact thinks she has had overdoses that she is taking her medication wrong. We will forget when she is taking some and take extra medication accidentally On admission her white count was 16,000 and is now down to 9.1 Glucose ranging anywhere from 99-196 Tegretol level on admission was low 3.7, TSH is high at 19.6 blood cultures are negative x72 hours Patient appears to be medically stable may be able to discharge tomorrow on current regimen of medications Would not go up on her Synthroid because I do not know she is been taking it properly nor would I go up on her Tegretol for the same reason - Time Time Spent with patient: 25-34 minutes
[2019-10-27] MEDS: ATORVASTATIN CALCIUM 80 MG TABLET PO SCH (22:18)
[2019-10-28] MEDS: ACETAMINOPHEN 325 MG TABLET PO PRN ×3 (02:17→18:00)
[2019-10-28] MEDS: LEVOTHYROXINE SODIUM 0.1 MG TABLET PO SCH (05:42)
[2019-10-28] MEDS: LEVOTHYROXINE SODIUM 0.075 MG TABLET PO SCH (05:43)
[2019-10-28] MEDS: HEPARIN SOD (PORCINE) 5,000 UNIT/ML 1 ML VIAL SUBCUT SCH ×3 (05:43→21:31)
[2019-10-28] MEDS: INSULIN LISPRO 100 UNIT/ML 3 ML VIAL SUBCUT SCH ×3 (09:00→15:52)
[2019-10-28] MEDS: METFORMIN HCL 500 MG TABLET PO SCH ×2 (09:03→18:00)
[2019-10-28] MEDS: ARIPIPRAZOLE 5 MG TABLET PO SCH (09:03)
[2019-10-28] MEDS: ASPIRIN 81 MG TABLET, ENT COATED PO SCH (09:03)
[2019-10-28] MEDS: CARBAMAZEPINE 200 MG TAB.SR.12H PO SCH ×2 (09:03→21:33)
[2019-10-28] MEDS: METOPROLOL TARTRATE 25 MG TABLET PO SCH ×2 (09:03→21:32)
[2019-10-28] MEDS: DULOXETINE HCL 30 MG CAPSULE.DR PO SCH (09:04)
[2019-10-28] MEDS: AMLODIPINE BESYLATE 10 MG TABLET PO SCH (09:04)
[2019-10-28] MEDS: DOCUSATE SODIUM 100 MG CAPSULE PO SCH ×2 (09:04→18:00)
[2019-10-28] MEDS: LISINOPRIL 10 MG TABLET PO SCH ×2 (09:04→21:32)
--- NOTE | 2019-10-28 10:07 | PDOC PROGRESS REPORT ---
Subjective Progress Note for:: 10/28/19 Reason For Visit: AMS,OD,HX SUICIDE ATTEMPTS 10/28/2019 She is medically stable, pressure is up slightly but normally this is well controlled, she is afebrile. Patient was originally admitted for overdose of medications, possibly accidental She is now well controlled on her medications She is not suicidal, however there may be an element of drug-seeking behavior concerning narcotics She tells me this morning she is got a "sore" on her buttocks that has been there for about a month and getting worse. I have looked at this and consulted general surgery to see what plan of treatment needs to be done. Patient is currently on no antibiotics. States she is never had this before. Patient is waiting for placement with Adult Protective Services for possible assisted living. Physical Exam Vital Signs: Temp Pulse Resp BP Pulse Ox 97.2 F 68 14 159/80 H 99 10/28/19 07:17 10/28/19 07:17 10/28/19 07:17 10/28/19 07:17 10/28/19 07:17 Intake & Output 10/27/19 10/28/19 10/29/19 06:59 06:59 06:59 Intake Total 1168 1903 Output Total 1850 Balance -682 1903 Weight 52.6 kg 53.2 kg General appearance: PRESENT: no acute distress Respiratory exam: PRESENT: clear to auscultation jaqueline. ABSENT: rales, rhonchi, wheezes Cardiovascular exam: PRESENT: RRR. ABSENT: diastolic murmur, rubs, systolic mu rmur Rectal exam: PRESENT: other - With female php consultant present, she has what appears to be a cyst or abscess at the top of her buttocks. Some purulent drainage, however no odor Results Laboratory Results: 10/25/19 05:16 10/25/19 05:16 10/23/19 18:25 Troponin I < 0.012 Impressions: Chest X-Ray 10/23/19 19:55 IMPRESSION: No acute cardiopulmonary disease. Head CT 10/23/19 19:55 IMPRESSION: No acute intracranial abnormality. Mild chronic microvascular ischemic change. TECHNICAL DOCUMENTATION: Quality ID # [id number]: Final reports with documentation of one or more dose reduction techniques (e.g., Automated exposure control, adjustment of the mA and/or kV according to patient size, use of iterative reconstruction technique) copyright 2011 [employer]- All Rights Reserved Foot X-Ray 10/23/19 20:01 IMPRESSION: Ossific density projected adjacent to the lateral aspect of the first proximal phalangeal base, indicating an age-indeterminate fracture fragment. However, given is likely corticated, it is likely chronic. Correlate with point tenderness. Degenerative changes, as above. copyright 2010 [employer]- All Rights Reserved Pelvis X-Ray 10/23/19 20:22 IMPRESSION: No fracture. Assessment and Plan - Diagnosis (1) Altered mental status Qualifiers: Altered mental status type: somnolence Qualified Code(s): R40.0 - Somnolence Is this a current diagnosis for this admission?: Yes (2) Diabetes Is this a current diagnosis for this admission?: Yes (3) Drug overdose Qualifiers: Encounter type: initial encounter Injury intent: undetermined intent Qualified Code(s): T50.904A - Poisoning by unspecified drugs, medicaments and biological substances, undetermined, initial encounter Is this a current diagnosis for this admission?: Yes (4) Hypothyroidism Qualifiers: Hypothyroidism type: unspecified Qualified Code(s): E03.9 - Hypothyroidism, unspecified Is this a current diagnosis for this admission?: Yes (5) Leukocytosis Is this a current diagnosis for this admission?: Yes - Plan Summary Summary: Patient has been evicted from her current living situation, and I do not think that she is safe to live by herself. Her APS licensing representative has been notified. 10/27/2019 Patient states she is not suicidal and in fact thinks she has had overdoses that she is taking her medication wrong. We will forget when she is taking some and take extra medication accidentally On admission her white count was 16,000 and is now down to 9.1 Glucose ranging anywhere from 99-196 Tegretol level on admission was low 3.7, TSH is high at 19.6 blood cultures are negative x72 hours Patient appears to be medically stable may be able to discharge tomorrow on current regimen of medications Would not go up on her Synthroid because I do not know she is been taking it properly nor would I go up on her Tegretol for the same reason. 10/28/2019 See the note dictated above under " reason for visit" - Time Time Spent with patient: 25-34 minutes
[2019-10-28] MEDS: GABAPENTIN 400 MG CAPSULE PO PRN (18:00)
[2019-10-28] MEDS: ATORVASTATIN CALCIUM 80 MG TABLET PO SCH (21:31)
--- NOTE | 2019-10-28 22:06 | PDOC CONSULTATION ---
Consultation Consult Date: 10/28/19 Provider Consulted: LUIZA CATALAN Consult reason:: Sacral decubitus ulcer History of Present Illness Admission Date/PCP: 10/23/19 23:40 CLINTON TIDWELL MD Patient complains of: Sacral pain History of Present Illness: SHELLEY RODRÍGUEZ is a 54 year old female seen in consultation at the request of the hospitalist service. Patient was admitted for altered mental status. She was found to have a sacral decubitus ulcer, and complains of sacral pain. She denies chest pain, shortness of breath, fevers, chills, headache, blurry vision, nausea, vomiting, fatigue, or malaise. She does report that she fell on her sacrum several days ago, which may explain her pain. Her pain is sharp and stabbing. She reports that it is 6 out of 10. Nothing makes it better. Palpation and pressure make it worse. Past Medical History Pulmonary Medical History: Reports: Chronic Obstructive Pulmonary Disease (COPD) Neurological Medical History: Comment Only: Seizures - UNKNOWN, AMS Endocrine Medical History: Reports: Diabetes Mellitus Type 2, Hypothyroidism Psychiatric Medical History: Reports: Depression, Personality Disorder, Sub stance Abuse, Tobacco Dependency Traumatic Medical History: Denies: Gunshot Wound, Pneumothorax Hematology: Denies: Sickle Cell Disease Infectious Medical History: Denies: HIV Past Surgical History Past Surgical History: Comment Only: Hysterectomy - UNKNOW, AMS Social History Smoking Status: Unknown if Ever Smoked Electronic Cigarette use?: No Hx Recreational Drug Use: Yes Hx Prescription Drug Abuse: Yes - Advance Directive Resuscitation Status: Full Code Family History Family History: Reviewed & Not Pertinent, Other Parental Family History Reviewed: Yes Children Family History Reviewed: Yes Sibling(s) Family History Reviewed.: Yes Medication/Allergy Home Medications: Amitriptyline HCl [Elavil 25 mg Tablet] 25 mg PO QHS 09/25/19 Amlodipine Besylate [Norvasc 10 mg Tablet] 10 mg PO DAILY 09/25/19 Carbamazepine [Carbamazepine ER] 200 mg PO Q12 09/25/19 Duloxetine HCl [Cymbalta] 60 mg PO QAM 09/25/19 Gabapentin [Neurontin] 800 mg PO QIDP PRN 09/25/19 Levothyroxine Sodium [Synthroid] 175 mcg PO Q6AM 09/25/19 Lisinopril [Prinivil 10 mg Tablet] 10 mg PO QHS 09/25/19 Metformin HCl [Glucophage] 1,000 mg PO BID 09/25/19 Aspirin [Aspir-Low] 81 mg PO DAILY #30 tablet. 10/08/19 Atorvastatin Calcium [Lipitor 80 mg Tablet] 80 mg PO QHS #30 tablet 10/08/19 Baclofen [Baclofen 10 mg Tablet] 10 mg PO TIDP PRN 10/24/19 Lisinopril 20 mg PO QAM 10/24/19 Allergies/Adverse Reactions: Penicillins Allergy (Verified 10/01/19 08:39) itchiness and occasional diff breathing Review of Systems Constitutional: ABSENT: anorexia, chills, fatigue Eyes: ABSENT: visual disturbances Ears: ABSENT: hearing changes Nose, Mouth, and Throat: ABSENT: mouth pain, sore throat Cardiovascular: ABSENT: chest pain Respiratory: ABSENT: cough Gastrointestinal: ABSENT: abdominal pain, bloating Genitourinary: ABSENT: dysuria Musculoskeletal: PRESENT: other - Sacral pain. ABSENT: back pain Integumentary: PRESENT: wounds - Sacral decubitus ulcer Neurological: ABSENT: confusion, convulsions, dizziness Psychiatric: ABSENT: anxiety, depression Endocrine: ABSENT: cold intolerance, heat intolerance Hematologic/Lymphatic: ABSENT: easy bleeding, easy bruising Physical Exam Vital Signs: Temp Pulse Resp BP Pulse Ox 98.3 F 74 16 165/93 H 100 10/28/19 19:57 10/28/19 19:57 10/28/19 19:57 10/28/19 19:57 10/28/19 19:57 Intake & Output 10/27/19 10/28/19 10/29/19 06:59 06:59 06:59 Intake Total 1168 1903 840 Output Total 1850 Balance -682 1903 840 Weight 52.6 kg 53.2 kg General appearance: PRESENT: no acute distress, cooperative Head exam: PRESENT: atraumatic, normocephalic Eye exam: PRESENT: EOMI, PERRLA. ABSENT: scleral icterus Mouth exam: PRESENT: moist, neck supple Neck exam: ABSENT: meningismus, tenderness, thyromegaly, tracheal deviation Respiratory exam: PRESENT: unlabored. ABSENT: chest wall tenderness, wheezes Cardiovascular exam: ABSENT: tachycardia Pulses: PRESENT: normal radial pulses Vascular exam: PRESENT: normal capillary refill GI/Abdominal exam: PRESENT: soft. ABSENT: distended, tenderness Rectal exam: PRESENT: normal inspection Extremities exam: ABSENT: clubbing Musculoskeletal exam: ABSENT: deformity Neurological exam: PRESENT: alert, awake Psychiatric exam: ABSENT: agitated, anxious, depressed Focused psych exam: ABSENT: delusional Skin exam: PRESENT: other - Stage III sacral decubitus ulcer, 1 cm in diameter. No obvious necrosis or purulence. No erythema. Results Laboratory Results: 10/25/19 05:16 10/25/19 05:16 10/23/19 18:25 Troponin I < 0.012 Impressions: Chest X-Ray 10/23/19 19:55 IMPRESSION: No acute cardiopulmonary disease. Head CT 10/23/19 19:55 IMPRESSION: No acute intracranial abnormality. Mild chronic microvascular ischemic change. TECHNICAL DOCUMENTATION: Quality ID # 436: Final reports with documentation of one or more dose reduction techniques (e.g., Automated exposure control, adjustment of the mA and/or kV according to patient size, use of iterative reconstruction technique) copyright 2010 [employer]- All Rights Reserved Foot X-Ray 10/23/19 20:01 IMPRESSION: Ossific density projected adjacent to the lateral aspect of the first proximal phalangeal base, indicating an age-indeterminate fracture fragment. However, given is likely corticated, it is likely chronic. Correlate with point tenderness. Degenerative changes, as above. copyright 2010 [employer]- All Rights Reserved Pelvis X-Ray 10/23/19 20:22 IMPRESSION: No fracture. Assessment & Plan - Diagnosis (1) Sacral decubitus ulcer, stage III Is this a current diagnosis for this admission?: Yes - Plan Summary Plan Summary: There is a 54-year-old female with a stage III decubitus ulcer. I see no sign of infection or necrosis. Recommend Allevyn dressings, and an aggressive turning regimen (every 2 hours). Upon my evaluation, the patient has soiled herself and is laying in it. I have encouraged her to keep herself clean, shower daily, and relieve pressure from her sacrum when possible. The patient is requesting pain medicine, and I have notified the nurse. She should also take an Ensure protein supplement 3 times daily with meals. There is no surgic al intervention planned for her small decubitus ulcer. Surgery will see the patient again on an as-needed basis. Please renotify with any questions or concerns.
[2019-10-29] MEDS: HEPARIN SOD (PORCINE) 5,000 UNIT/ML 1 ML VIAL SUBCUT SCH ×3 (06:20→22:26)
[2019-10-29] MEDS: LEVOTHYROXINE SODIUM 0.075 MG TABLET PO SCH (06:20)
[2019-10-29] MEDS: LEVOTHYROXINE SODIUM 0.1 MG TABLET PO SCH (06:20)
[2019-10-29] MEDS: INSULIN LISPRO 100 UNIT/ML 3 ML VIAL SUBCUT SCH ×3 (08:26→16:58)
[2019-10-29] MEDS: LISINOPRIL 10 MG TABLET PO SCH ×2 (08:32→22:27)
[2019-10-29] MEDS: DULOXETINE HCL 30 MG CAPSULE.DR PO SCH (08:32)
[2019-10-29] MEDS: GABAPENTIN 400 MG CAPSULE PO PRN ×3 (08:40→23:39)
[2019-10-29] MEDS: ACETAMINOPHEN 325 MG TABLET PO PRN (08:40)
[2019-10-29 09:17] LABS: ABSOLUTE BASOPHILS # (AUTO) 0.1 10^3/uL (0.0-0.2); ABSOLUTE EOSINOPHILS # (AUTO) 0.2 10^3/uL (0.0-0.6); ABSOLUTE LYMPHOCYTES (AUTO) 2.4 10^3/uL (0.5-4.7); ABSOLUTE MONOCYTES (AUTO) 0.5 10^3/uL (0.1-1.4); ABSOLUTE NEUT (AUTO) 3.6 10^3/uL (1.7-8.2); BASOPHILS % (AUTO) 1.3 % (0-2); EOSINOPHILS % (AUTO) 3.3 % (0-6); HEMATOCRIT 34.5 % (36.0-47.0); HEMOGLOBIN 11.4 g/dL (12.0-15.5); LYMPHOCYTES % (AUTO) 34.9 % (13-45); MEAN CORPUSCULAR HEMOGLOBIN 27.6 pg (27.0-33.4); MEAN CORPUSCULAR HGB CONC 33.1 g/dL (32.0-36.0); MEAN CORPUSCULAR VOLUME 84 fl (80-97); MONOCYTES % (AUTO) 7.1 % (3-13); PLATELET COUNT 545 10^3/uL (150-450); RED BLOOD COUNT 4.13 10^6/uL (3.72-5.28); RED CELL DISTRIBUTION WIDTH 17.5 % (11.5-14.0); SEGMENTED NEUTROPHILS % (AUTO) 53.4 % (42-78); TOTAL CELLS COUNTED % (AUTO) 100 %; WHITE BLOOD COUNT 6.8 10^3/uL (4.0-10.5)
[2019-10-29 09:41] LABS: ANION GAP 10 (5-19); BLOOD UREA NITROGEN 20 mg/dL (7-20); CALCIUM 9.8 mg/dL (8.4-10.2); CARBON DIOXIDE 30 mmol/L (22-30); CHLORIDE 96 mmol/L (98-107); GLUCOSE 116 mg/dL (75-110); POTASSIUM 5.6 mmol/L (3.6-5.0)
[2019-10-29] MEDS: METFORMIN HCL 500 MG TABLET PO SCH ×2 (10:10→17:04)
[2019-10-29] MEDS: DOCUSATE SODIUM 100 MG CAPSULE PO SCH ×2 (10:11→17:04)
[2019-10-29] MEDS: METOPROLOL TARTRATE 25 MG TABLET PO SCH ×2 (10:11→22:27)
[2019-10-29] MEDS: ASPIRIN 81 MG TABLET, ENT COATED PO SCH (10:11)
[2019-10-29] MEDS: AMLODIPINE BESYLATE 10 MG TABLET PO SCH (10:12)
[2019-10-29] MEDS: ARIPIPRAZOLE 5 MG TABLET PO SCH (10:13)
[2019-10-29] MEDS: CARBAMAZEPINE 200 MG TAB.SR.12H PO SCH ×2 (10:18→22:27)
[2019-10-29] MEDS: TRAMADOL HCL 50 MG TABLET PO PRN ×3 (10:48→23:34)
--- NOTE | 2019-10-29 16:54 | PDOC PROGRESS REPORT ---
Subjective Progress Note for:: 10/29/19 Reason For Visit: AMS,OD,HX SUICIDE ATTEMPTS 10/29/2019 Accidental medication overdose, altered mental status secondary to overdose Physical Exam Vital Signs: Temp Pulse Resp BP Pulse Ox 97.9 F 76 12 144/83 H 100 10/29/19 08:03 10/29/19 08:03 10/29/19 08:03 10/29/19 08:03 10/29/19 08:03 Intake & Output 10/28/19 10/29/19 10/30/19 06:59 06:59 06:59 Intake Total 1903 960 600 Balance 1903 960 600 Weight 53.2 kg 52.5 kg General appearance: PRESENT: no acute distress, other - Patient is complaining of buttock pain from her sacral decubitus stage III Respiratory exam: PRESENT: clear to auscultation jaqueline. ABSENT: rales, rhonchi, wheezes Cardiovascular exam: PRESENT: RRR. ABSENT: diastolic murmur, rubs, systolic murmur Neurological exam: PRESENT: alert, awake, oriented to person, oriented to place, oriented to time, oriented to situation, CN II-XII grossly intact. ABSENT: motor sensory deficit Psychiatric exam: PRESENT: appropriate affect, normal mood. ABSENT: homicidal ideation, suicidal ideation Results Laboratory Results: 10/29/19 08:21 10/29/19 08:21 10/29/19 10/29/19 08:21 08:21 WBC 6.8 RBC 4.13 Hgb 11.4 L Hct 34.5 L MCV 84 MCH 27.6 MCHC 33.1 RDW 17.5 H Plt Count 545 H Seg Neutrophils % 53.4 Sodium 135.9 L Potassium 5.6 H Chloride 96 L Carbon Dioxide 30 Anion Gap 10 BUN 20 Creatinine 1.02 Est GFR ( Amer) > 60 Glucose 116 H Calcium 9.8 10/24/19 02:20 Blood Blood Culture - Final NO GROWTH IN 5 DAYS 10/23/19 22:55 Blood Blood Culture - Final NO GROWTH IN 5 DAYS 10/23/19 18:25 Troponin I < 0.012 Impressions: Chest X-Ray 10/23/19 19:55 IMPRESSION: No acute cardiopulmonary disease. Head CT 10/23/19 19:55 IMPRESSION: No acute intracranial abnormality. Mild chronic microvascular ischemic change. TECHNICAL DOCUMENTATION: Quality ID # [id number]: Final reports with documentation of one or more dose reduction techniques (e.g., Automated exposure control, adjustment of the mA and/or kV according to patient size, use of iterative reconstruction technique) copyright 2010 [employer]- All Rights Reserved Foot X-Ray 10/23/19 20:01 IMPRESSION: Ossific density projected adjacent to the lateral aspect of the first proximal phalangeal base, indicating an age-indeterminate fracture fragment. However, given is likely corticated, it is likely chronic. Correlate with point tenderness. Degenerative changes, as above. copyright 2010 [employer]- All Rights Reserved Pelvis X-Ray 10/23/19 20:22 IMPRESSION: No fracture. Assessment and Plan - Diagnosis (1) Altered mental status Qualifiers: Altered mental status type: somnolence Qualified Code(s): R40.0 - Somnolence Is this a current diagnosis for this admission?: Yes (2) Diabetes Is this a current diagnosis for this admission?: Yes (3) Drug overdose Qualifiers: Encounter type: initial encounter Injury intent: undetermined intent Qualified Code(s): T50.904A - Poisoning by unspecified drugs, medicaments and biological substances, undetermined, initial encounter Is this a current diagnosis for this admission?: Yes (4) Hypothyroidism Qualifiers: Hypothyroidism type: unspecified Qualified Code(s): E03.9 - Hypothyroidism, unspecified Is this a current diagnosis for this admission?: Yes (5) Leukocytosis Is this a current diagnosis for this admission?: Yes (6) Sacral decubitus ulcer, stage III Is this a current diagnosis for this admission?: Yes - Plan Summary Summary: Patient has been evicted from her current living situation, and I do not think that she is safe to live by herself. Her APS public services assistant has been notified. 10/27/2019 Patient states she is not suicidal and in fact thinks she has had overdoses that she is taking her medication wrong. We will forget when she is taking some and take extra medication accidentally On admission her white count was 16,000 and is now down to 9.1 Glucose ranging anywhere from 99-196 Tegretol level on admission was low 3.7, TSH is high at 19.6 blood cultures are negative x72 hours Patient appears to be medically stable may be able to discharge tomorrow on current regimen of medications Would not go up on her Synthroid because I do not know she is been taking it properly nor would I go up on her Tegretol for the same reason. 10/28/2019 See the note dictated above under " reason for visit" 10/29/2019 Vital signs are stable blood pressure this morning 144/83 temperature 97.9, pulse 76 O2 sat 100% on room air White blood cell count is normal 6.8 H&H has been stable 11.4 and 34.5 Potassium slightly high today at 5.6, admission it was also high at 5.5 then it went down into the low fours and now is back up again. Will give 2 doses of Kayexalate p.o. stable glucose levels anywhere from the low 100s to the low 200s Patient has been seen by general surgery for her sacral decubitus. He feels that wound care needs to be given with dressing changes. So feels that the patient should be drinking protein Ensure drinks 3 times per day, also that the patient should be turned every 2 hours or at least get off of her sacrum every 2 hours. Patient is medically stable however I feel that she needs long-term facility placement for medication management as well as physical therapy and rehab therapy. Patient would also benefit from wound care on a daily basis and assistance with her daily living skills. - Time Time Spent with patient: 25-34 minutes
[2019-10-29] MEDS: SODIUM POLYSTYRENE SULFONATE 15 GM/60 ML PO SCH (18:44)
[2019-10-29] MEDS: ATORVASTATIN CALCIUM 80 MG TABLET PO SCH (22:27)
[2019-10-30 04:54] LABS: ANION GAP 7 (5-19); BLOOD UREA NITROGEN 17 mg/dL (7-20); CARBON DIOXIDE 30 mmol/L (22-30); CHLORIDE 99 mmol/L (98-107); GLUCOSE 106 mg/dL (75-110)
[2019-10-30] MEDS: HEPARIN SOD (PORCINE) 5,000 UNIT/ML 1 ML VIAL SUBCUT SCH ×2 (05:44→14:20)
[2019-10-30] MEDS: LEVOTHYROXINE SODIUM 0.1 MG TABLET PO SCH (05:45)
[2019-10-30] MEDS: LEVOTHYROXINE SODIUM 0.075 MG TABLET PO SCH (05:45)
[2019-10-30] MEDS: TRAMADOL HCL 50 MG TABLET PO PRN (05:45)
[2019-10-30 05:46] LABS: POTASSIUM 4.2 mmol/L (3.6-5.0)
[2019-10-30] MEDS: SODIUM POLYSTYRENE SULFONATE 15 GM/60 ML PO SCH (05:46)
[2019-10-30] MEDS: LISINOPRIL 10 MG TABLET PO SCH (08:25)
[2019-10-30] MEDS: DULOXETINE HCL 30 MG CAPSULE.DR PO SCH (08:25)
[2019-10-30] MEDS: GABAPENTIN 400 MG CAPSULE PO PRN (08:27)
[2019-10-30] MEDS: INSULIN LISPRO 100 UNIT/ML 3 ML VIAL SUBCUT SCH ×2 (08:56→12:38)
[2019-10-30] MEDS: AMLODIPINE BESYLATE 10 MG TABLET PO SCH (10:07)
[2019-10-30] MEDS: ASPIRIN 81 MG TABLET, ENT COATED PO SCH (10:07)
[2019-10-30] MEDS: METOPROLOL TARTRATE 25 MG TABLET PO SCH (10:07)
[2019-10-30] MEDS: ARIPIPRAZOLE 5 MG TABLET PO SCH (10:07)
[2019-10-30] MEDS: CARBAMAZEPINE 200 MG TAB.SR.12H PO SCH (10:07)
[2019-10-30] MEDS: METFORMIN HCL 500 MG TABLET PO SCH (10:07)
[2019-10-30] MEDS: DOCUSATE SODIUM 100 MG CAPSULE PO SCH (10:07)
--- NOTE | 2019-10-30 10:52 | PDOC TRANSFER SUMMARY ---
Impression - Admit/DC Date/PCP Admission Date/Primary Care Provider: 10/23/19 23:40 CLINTON TIDWELL MD Discharge Date: 10/30/19 - Discharge Diagnosis (1) Altered mental status Is this a current diagnosis for this admission?: Yes (2) Diabetes Is this a current diagnosis for this admission?: Yes (3) Drug overdose Is this a current diagnosis for this admission?: Yes (4) Hypothyroidism Is this a current diagnosis for this admission?: Yes (5) Leukocytosis Is this a current diagnosis for this admission?: Yes (6) Sacral decubitus ulcer, stage III Is this a current diagnosis for this admission?: Yes (7) Hyperkalemia Is this a current diagnosis for this admission?: Yes - Assessment Summary: Patient has been evicted from her current living situation, and I do not think that she is safe to live by herself. Her APS beauty director has been notified. 10/27/2019 Patient states she is not suicidal and in fact thinks she has had overdoses that she is taking her medication wrong. We will forget when she is taking some and take extra medication accidentally On admission her white count was 16,000 and is now down to 9.1 Glucose ranging anywhere from 99-196 Tegretol level on admission was low 3.7, TSH is high at 19.6 blood cultures are negative x72 hours Patient appears to be medically stable may be able to discharge tomorrow on current regimen of medications Would not go up on her Synthroid because I do not know she is been taking it properly nor would I go up on her Tegretol for the same reason. 10/28/2019 See the note dictated above under " reason for visit" 10/29/2019 Vital signs are stable blood pressure this morning 144/83 temperature 97.9, pulse 76 O2 sat 100% on room air White blood cell count is normal 6.8 H&H has been stable 11.4 and 34.5 Potassium slightly high today at 5.6, admission it was also high at 5.5 then it went down into the low fours and now is back up again. Will give 2 doses of Kayexalate p.o. stable glucose levels anywhere from the low 100s to the low 200s Patient has been seen by general surgery for her sacral decubitus. He feels that wound care needs to be given with dressing changes. So feels that the patient should be drinking protein Ensure drinks 3 times per day, also that the patient should be turned every 2 hours or at least get off of her sacrum every 2 hours. Patient is medically stable however I feel that she needs fdc facility placement for medication management as well as physical therapy and rehab therapy. Patient would also benefit from wound care on a daily basis and assistance with her daily living skills. 10/30/2019 patient's potassium is come down to 4.2 today Medically stable for transfer to [facility] Patient will continue prescriptions as written, patient will need wound care for her sacral decubitus outlined Patient will need assistance with her medications - Additional Information Resuscitation Status: Full Code Discharge Diet: Diabetic Discharge Activity: Activity As Tolerated Referrals: CLINTON TIDWELL MD [Primary Care Provider] - Prescriptions: Aripiprazole [Abilify 5 mg Tablet] 10 mg PO DAILY 30 Days #30 tablet Metoprolol Tartrate [Lopressor 25 mg Tablet] 25 mg PO Q12 30 Days #60 tablet Home Medications: Amitriptyline HCl [Elavil 25 mg Tablet] 25 mg PO QHS 09/25/19 Amlodipine Besylate [Norvasc 10 mg Tablet] 10 mg PO DAILY 09/25/19 Carbamazepine [Carbamazepine ER] 200 mg PO Q12 09/25/19 Duloxetine HCl [Cymbalta] 60 mg PO QAM 09/25/19 Gabapentin [Neurontin] 800 mg PO QIDP PRN 09/25/19 Levothyroxine Sodium [Synthroid] 175 mcg PO Q6AM 09/25/19 Lisinopril [Prinivil 10 mg Tablet] 10 mg PO QHS 09/25/19 Metformin HCl [Glucophage] 1,000 mg PO BID 09/25/19 Aspirin [Aspir-Low] 81 mg PO DAILY #30 tablet. 10/08/19 Atorvastatin Calcium [Lipitor 80 mg Tablet] 80 mg PO QHS #30 tablet 10/08/19 Baclofen [Baclofen 10 mg Tablet] 10 mg PO TIDP PRN 10/24/19 Lisinopril 20 mg PO QAM 10/24/19 Aripiprazole [Abilify 5 mg Tablet] 10 mg PO DAILY 30 Days #30 tablet 10/30/19 Docusate Sodium [Colace 100 mg Capsule] 100 mg PO BID capsule 10/30/19 Metoprolol Tartrate [Lopressor 25 mg Tablet] 25 mg PO Q12 30 Days #60 tablet 10/30/19 History of Present Illiness History of Present Illness: SHELLEY RODRÍGUEZ is a 54 year old female Physical Exam Vital Signs: Temp Pulse Resp BP Pulse Ox 98.2 F 72 16 143/75 H 100 10/30/19 00:00 10/30/19 00:00 10/30/19 00:00 10/30/19 00:00 10/30/19 00:00 Intake & Output 10/29/19 10/30/19 10/31/19 06:59 06:59 06:59 Intake Total 960 2100 Balance 960 2100 Weight 52.5 kg 53.2 kg Results Laboratory Results: WBC 6.8 10^3/uL (4.0-10.5) 10/29/19 08:21 RBC 4.13 10^6/uL (3.72-5.28) 10/29/19 08:21 Hgb 11.4 g/dL (12.0-15.5) L 10/29/19 08:21 Hct 34.5 % (36.0-47.0) L 10/29/19 08:21 MCV 84 fl (80-97) 10/29/19 08:21 MCH 27.6 pg (27.0-33.4) 10/29/19 08:21 MCHC 33.1 g/dL (32.0-36.0) 10/29/19 08:21 RDW 17.5 % (11.5-14.0) H 10/29/19 08:21 Plt Count 545 10^3/uL (150-450) H 10/29/19 08:21 Lymph % (Auto) 34.9 % (13-45) 10/29/19 08:21 Ponce % (Auto) 7.1 % (3-13) 10/29/19 08:21 Eos % (Auto) 3.3 % (0-6) 10/29/19 08:21 Baso % (Auto) 1.3 % (0-2) 10/29/19 08:21 Absolute Neuts (auto) 3.6 10^3/uL (1.7-8.2) 10/29/19 08:21 Absolute Lymphs (auto) 2.4 10^3/uL (0.5-4.7) 10/29/19 08:21 Absolute Monos (auto) 0.5 10^3/uL (0.1-1.4) 10/29/19 08:21 Absolute Eos (auto) 0.2 10^3/uL (0.0-0.6) 10/29/19 08:21 Absolute Basos (auto) 0.1 10^3/uL (0.0-0.2) 10/29/19 08:21 Seg Neutrophils % 53.4 % (42-78) 10/29/19 08:21 PT 11.4 SEC (11.4-15.4) 10/23/19 18:25 INR 0.83 10/23/19 18:25 APTT 26.8 SEC (23.5-35.8) 10/23/19 18:25 Sodium 136.1 mmol/L (137-145) L 10/30/19 04:19 Potassium 4.2 mmol/L (3.6-5.0) D 10/30/19 04:19 Chloride 99 mmol/L (98-107) 10/30/19 04:19 Carbon Dioxide 30 mmol/L (22-30) 10/30/19 04:19 Anion Gap 7 (5-19) 10/30/19 04:19 BUN 17 mg/dL (7-20) 10/30/19 04:19 Creatinine 0.89 mg/dL (0.52-1.25) 10/30/19 04:19 Est GFR ( Amer) > 60 (>60) 10/30/19 04:19 Est GFR (MDRD) Non-Af > 60 (>60) 10/30/19 04:19 Glucose 106 mg/dL (75-110) 10/30/19 04:19 POC Glucose 104 mg/dL (70-110) 10/30/19 08:21 Lactic Acid (Sepsis) 1.6 mmol/L (0.7-2.1) 10/24/19 02:20 Calcium 9.0 mg/dL (8.4-10.2) 10/30/19 04:19 Magnesium 1.9 mg/dL (1.6-2.3) 10/23/19 18:25 Total Bilirubin 0.2 mg/dL (0.2-1.3) 10/25/19 05:16 Direct Bilirubin 0.1 mg/dL (0.0-0.4) 10/25/19 05:16 Neonat Total Bilirubin Not Reportable 10/25/19 05:16 Neonat Direct Bilirubin Not Reportable 10/25/19 05:16 Neonat Indirect Bili Not Reportable 10/25/19 05:16 AST 83 U/L (14-36) H 10/25/19 05:16 ALT 23 U/L (<35) 10/25/19 05:16 Alkaline Phosphatase 84 U/L (38-126) 10/25/19 05:16 Troponin I < 0.012 ng/mL 10/23/19 18:25 Total Protein 5.5 g/dL (6.3-8.2) L 10/25/19 05:16 Albumin 3.0 g/dL (3.5-5.0) L 10/25/19 05:16 TSH 19.60 uIU/mL (0.47-4.68) H 10/23/19 18:25 Free T4 0.84 ng/dL (0.78-2.19) 10/23/19 18:25 Free T3 pg/mL 2.95 pg/mL (2.77-5.27) 10/23/19 18:25 Urine Color STRAW 10/23/19 21:32 Urine Appearance CLEAR 10/23/19 21:32 Urine pH 7.0 (5.0-9.0) 10/23/19 21:32 Ur Specific [place] 1.008 10/23/19 21:32 Urine Protein NEGATIVE mg/dL (NEGATIVE) 10/23/19 21:32 Urine Glucose (UA) 150 mg/dL (NEGATIVE) H 10/23/19 21:32 Urine Ketones NEGATIVE mg/dL (NEGATIVE) 10/23/19 21:32 Urine Blood MODERATE (NEGATIVE) H 10/23/19 21:32 Urine Nitrite NEGATIVE (NEGATIVE) 10/23/19 21:32 Urine Bilirubin NEGATIVE (NEGATIVE) 10/23/19 21:32 Urine Urobilinogen NEGATIVE mg/dL (<2.0) 10/23/19 21:32 Ur Leukocyte Esterase NEGATIVE (NEGATIVE) 10/23/19 21:32 Urine WBC (Auto) 1 /HPF 10/23/19 21:32 Urine RBC (Auto) 0 /HPF 10/23/19 21:32 Urine Mucus (Auto) RARE /LPF 10/23/19 21:32 Urine Ascorbic Acid NEGATIVE (NEGATIVE) 10/23/19 21:32 Salicylates < 1.0 mg/dL (2.0-20.0) L 10/23/19 18:25 Urine Opiates Screen NEGATIVE 10/23/19 21:32 Urine Methadone Screen NEGATIVE 10/23/19 21:32 Acetaminophen < 10 ug/mL (10-30) L 10/23/19 18:25 Ur Barbiturates Screen NEGATIVE 10/23/19 21:32 Carbamazepine 3.7 ug/mL (4.0-12.0) L 10/24/19 07:07 Ur Phencyclidine Scrn NEGATIVE 10/23/19 21:32 Ur Amphetamines Screen NEGATIVE 10/23/19 21:32 U Benzodiazepines Scrn NEGATIVE 10/23/19 21:32 Urine Cocaine Screen NEGATIVE 10/23/19 21:32 U Marijuana (THC) Screen NEGATIVE 10/23/19 21:32 Serum Alcohol < 10 mg/dL (NONE DETECTED) 10/23/19 18:25 10/23/19 18:25 Troponin I < 0.012 Impressions: Chest X-Ray 10/23/19 19:55 IMPRESSION: No acute cardiopulmonary disease. Head CT 10/23/19 19:55 IMPRESSION: No acute intracranial abnormality. Mild chronic microvascular ischemic change. TECHNICAL DOCUMENTATION: Quality ID # [id number]: Final reports with documentation of one or more dose reduction techniques (e.g., Automated exposure control, adjustment of the mA and/or kV according to patient size, use of iterative reconstruction technique) copyright 2010 [employer]- All Rights Reserved Foot X-Ray 10/23/19 20:01 IMPRESSION: Ossific density projected adjacent to the lateral aspect of the first proximal phalangeal base, indicating an age-indeterminate fracture fragment. However, given is likely corticated, it is likely chronic. Correlate with point tenderness. Degenerative changes, as above. copyright 2010 [employer]- All Rights Reserved Pelvis X-Ray 10/23/19 20:22 IMPRESSION: No fracture. Stroke Is this a Stroke Patient?: No Acute Heart Failure - Is this a Heart Failure Patient?: No
[2019-10-30 13:02] VITALS: BP 105/65
== END 2019-10-30 15:32 | DRG 947 ==
LOC: ER 18:10 → EH 23:40 → 5 10-24 01:47
PROVIDERS: ADMIT Internal Medicine Critical Care Medicine; ATTEND Internal Medicine Critical Care Medicine
DX: R41.82 Altered mental status, unspecified (principal); L89.153 Pressure ulcer of sacral region, stage 3; T38.1X6A Underdosing of thyroid hormones and substitutes, initial encounter; E87.5 Hyperkalemia; E86.0 Dehydration; J44.9 Chronic obstructive pulmonary disease, unspecified; E11.9 Type 2 diabetes mellitus without complications; E03.9 Hypothyroidism, unspecified; F60.9 Personality disorder, unspecified; F32.9 Major depressive disorder, single episode, unspecified; Z60.2 Problems related to living alone; F17.200 Nicotine dependence, unspecified, uncomplicated; Z79.899 Other long term (current) drug therapy; Z79.82 Long term (current) use of aspirin; Z88.0 Allergy status to penicillin; Z79.84 Long term (current) use of oral hypoglycemic drugs
CPT/HCPCS: 36415; 70450; 71045; 72170; 80048; 80053; 80156; 80307; 81001; 82962; 83605; 83735; 84439; 84443; 84481; 84484; 85025; 85610; 85730; 87040; 87086; 93005; 93010; 94640; 96374; 99285; J1644; J1815; J3360; J3490; J7030

== ENCOUNTER 2019-11-02 07:00 | Inpatient (IN) | payer MEDICARE ==
[2019-11-02] MEDS ORDERED: NALOXONE HCL INJ 2 MG/2 ML DISP.SYRIN ONE (07:08)
[2019-11-02 07:35] LABS: ABSOLUTE BASOPHILS # (AUTO) 0.1 10^3/uL (0.0-0.2); ABSOLUTE EOSINOPHILS # (AUTO) 0.2 10^3/uL (0.0-0.6); ABSOLUTE LYMPHOCYTES (AUTO) 2.9 10^3/uL (0.5-4.7); ABSOLUTE MONOCYTES (AUTO) 0.6 10^3/uL (0.1-1.4); ABSOLUTE NEUT (AUTO) 7.1 10^3/uL (1.7-8.2); EOSINOPHILS % (AUTO) 2.3 % (0-6); HEMATOCRIT 36.1 % (36.0-47.0); HEMOGLOBIN 11.8 g/dL (12.0-15.5); LYMPHOCYTES % (AUTO) 26.6 % (13-45); MEAN CORPUSCULAR HEMOGLOBIN 27.7 pg (27.0-33.4); MEAN CORPUSCULAR HGB CONC 32.7 g/dL (32.0-36.0); MEAN CORPUSCULAR VOLUME 85 fl (80-97); MONOCYTES % (AUTO) 5.3 % (3-13); PLATELET COUNT 464 10^3/uL (150-450); RED BLOOD COUNT 4.26 10^6/uL (3.72-5.28); RED CELL DISTRIBUTION WIDTH 18.7 % (11.5-14.0); SEGMENTED NEUTROPHILS % (AUTO) 64.8 % (42-78); TOTAL CELLS COUNTED % (AUTO) 100 %
--- NOTE | 2019-11-02 07:36 | RADIOLOGY REPORT (SQ) ---
CLINICAL HISTORY: AMS COMPARISON: 10/23/2019. 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 FINDINGS: There is no acute hemorrhage, mass effect or midline shift. Moreno-white differentiation is preserved. There is no hydrocephalus. There is no significant volume loss for age. There are mild patchy hypodensities within the periventricular and subcortical white matter, consistent with microangiopathic ischemic changes. The calvarium is intact. Orbits and globes are unremarkable. The paranasal sinuses are clear. Mastoid air cells are clear. IMPRESSION: No acute intracranial findings.
[2019-11-02] MEDS ORDERED: NORMAL SALINE 1000 ML 1,000 ML IV ONE ×2 (07:43→09:49)
[2019-11-02 07:56] LABS: ALBUMIN 3.8 g/dL (3.5-5.0); ALKALINE PHOSPHATASE 79 U/L (38-126); ANION GAP 8 (5-19); ASPARTATE AMINO TRANSFERASE 30 U/L (14-36); BILIRUBIN,DIRECT 0.2 mg/dL (0.0-0.4); BILIRUBIN,TOTAL 0.3 mg/dL (0.2-1.3); BLOOD UREA NITROGEN 20 mg/dL (7-20); CALCIUM 9.7 mg/dL (8.4-10.2); CARBON DIOXIDE 31 mmol/L (22-30); CHLORIDE 97 mmol/L (98-107); GLUCOSE 171 mg/dL (75-110); POTASSIUM 4.9 mmol/L (3.6-5.0); TOTAL PROTEIN 6.6 g/dL (6.3-8.2)
[2019-11-02] MEDS ORDERED: NALOXONE HCL INJ 2 MG/2 ML DISP.SYRIN IV ONE (08:19)
[2019-11-02 08:24] LABS: VENOUS BLOOD BASE EXCESS 3.1 mmol/L; VENOUS BLOOD HCO3 29.8 mmol/L (20-32); VENOUS BLOOD PCO2 55.7 mmHg (35-63); VENOUS BLOOD PH 7.35 (7.30-7.42)
--- NOTE | 2019-11-02 08:42 | RADIOLOGY REPORT (SQ) ---
EXAM DESCRIPTION: CHEST SINGLE VIEW COMPLETED DATE/TIME: 11/02/2019 7:54 am REASON FOR STUDY: AMS COMPARISON: 10/23/2019. EXAM PARAMETERS: NUMBER OF VIEWS: One view. TECHNIQUE: Single frontal radiographic view of the chest acquired. RADIATION DOSE: NA LIMITATIONS: None. FINDINGS: LUNGS AND PLEURA: No opacities, masses or pneumothorax. No pleural effusion. MEDIASTINUM AND HILAR STRUCTURES: No masses. Contour normal. HEART AND VASCULAR STRUCTURES: Heart normal in size. Normal vasculature. BONES: No acute findings. HARDWARE: None in the chest. OTHER: No other significant finding. IMPRESSION: NO ACUTE RADIOGRAPHIC FINDING IN THE CHEST. TECHNICAL DOCUMENTATION: JOB ID: [id number] [employer]- All Rights Reserved Reading location - IP/workstation name: [email or web address]
[2019-11-02 09:34] LABS: ACETAMINOPHEN < 10 ug/mL (10-30); ALCOHOL < 10 mg/dL (NONE DETECTED); SALICYLATE < 1.0 mg/dL (2.0-20.0)
--- NOTE | 2019-11-02 10:35 | ER Document Report ---
Entered by ZELALEM TO SCRIBE 11/02/19 0742 Acting as scribe for:MARRY QUINTERO DO ED General - General Chief Complaint: Possible Overdose Stated Complaint: ALTERED MENTAL STATUS Time Seen by Provider: 11/02/19 07:15 Mode of Arrival: Ambulatory Information source: Patient Cannot obtain history due to: Uncooperative, Altered mental status Notes: Patient is a 54 year old female that presents to the emergency department today with complaints of altered mental status per nursing staff at [facility] where the patient is currently residing. According to EMS, nursing staff found "a bunch of pills" scattered throughout the patient's bed. This patient has been seen here several times in the past for unsuccessful suicide attempts via overdose, with her last visit being 10 days ago. Patient is unable to provide any details so obtaining any meaningful history today is quite difficult. TRAVEL OUTSIDE OF THE [place] IN LAST 30 DAYS: No - Related Data Allergies/Adverse Reactions: Penicillins Allergy (Verified 10/01/19 08:39) itchiness and occasional diff breathing Past Medical History - General Information source: Patient, [facility] Records, Outside Facility Records Cannot obtain history due to: Uncooperative, Altered mental status - Social History Smoking Status: Current Every Day Smoker Cigarette use (# per day): Yes Drug Abuse: Prescription drugs Lives with: Family Family History: Reviewed & Not Pertinent, Other Patient has suicidal ideation: No Patient has homicidal ideation: No Pulmonary Medical History: Reports: Hx COPD Endocrine Medical History: Reports: Hx Diabetes Mellitus Type 2, Hx Hypothyroidism Psychiatric Medical History: Reports: Hx Depression, Hx Personality Disorder Review of Systems - Review of Systems -: Yes ROS unobtainable due to patient's medical condition Physical Exam - Vital signs Vitals: Pulse Ox 93 11/02/19 07:07 Interpretation: Tachycardic - General General appearance: Lethargic - HEENT Head: Normocephalic, Atraumatic Mouth/Lips: Normal Mucous membranes: Dry Neck: Normal - Respiratory Respiratory status: No respiratory distress Breath sounds: Normal - Cardiovascular Rhythm: Tachycardia - Abdominal Inspection: Normal Tenderness: Nontender - Back Back: Normal - Extremities General upper extremity: Normal inspection, Normal ROM General lower extremity: Normal ROM - Neurological Brenda Coma Scale Eye Opening: To Pain [place] Coma Scale Verbal: Confused [place] Coma Scale Motor: Localizes to Pain [place] Coma Scale Total: 11 - Psychological Associated symptoms: Confused - Skin Skin Temperature: Warm Skin Moisture: Dry Skin Color: Normal Course - Re-evaluation Re-evalutation: 11/02/19 09:10 Call placed to poison control 11/02/19 09:46 Call placed to hospitalist for admission Patient is a 54-year-old female who comes in very drowsy. Patient has been seen before with altered mental status and overdose. She was apparently found with pills in her bed. Tegretol is greater than 20. Discussed with poison control who recommends supportive care. QTC within normal limits. No acute findings otherwise on blood work. Patient has become more arousable here in the emergency department. Of note, Narcan had no effect. Discussed with hospitalist service and will be admitted for acute encephalopathy and overdose of Tegretol. - Vital Signs Vital signs: Temp Pulse Resp BP Pulse Ox 97.2 F 70 16 184/81 H 97 11/02/19 14:51 11/02/19 15:25 11/02/19 14:51 11/02/19 14:51 11/02/19 14:51 - Laboratory Result Diagrams: 11/02/19 06:48 11/02/19 06:48 Laboratory results interpreted by me: 11/02/19 11/02/19 11/02/19 06:48 06:48 06:48 WBC 11.0 H Hgb 11.8 L RDW 18.7 H Plt Count 464 H PT 11.0 L Sodium 136.2 L Chloride 97 L Carbon Dioxide 31 H Glucose 171 H Lactic Acid (Sepsis) TSH Salicylates Acetaminophen Carbamazepine 11/02/19 11/02/19 11/02/19 06:48 06:48 07:35 WBC Hgb RDW Plt Count PT Sodium Chloride Carbon Dioxide Glucose Lactic Acid (Sepsis) TSH 12.10 H Salicylates < 1.0 L Acetaminophen < 10 L Carbamazepine > 20.0 H* 11/02/19 11/02/19 08:05 10:45 WBC Hgb RDW Plt Count PT Sodium Chloride Carbon Dioxide Glucose Lactic Acid (Sepsis) 2.5 H 2.3 H TSH Salicylates Acetaminophen Carbamazepine Discharge - Discharge Clinical Impression: Acute metabolic encephalopathy Overdose Qualifiers: Encounter type: initial encounter Injury intent: undetermined intent Qualified Code(s): T50.904A - Poisoning by unspecified drugs, medicaments and biological substances, undetermined, initial encounter Condition: Stable Disposition: ADMITTED INPATIENT Admitting Provider: Naa (Hospitalist) Unit Admitted: IMCU I personally performed the services described in the documentation, reviewed and edited the documentation which was dictated to the scribe in my presence, and it accurately records my words and actions.
[2019-11-02] MEDS ORDERED: DIAZEPAM INJ 10 MG/2 ML DISP.SYRIN IV PRN (11:07)
[2019-11-02] MEDS: RINGERS SOLUTION,LACTATED 1,000 ML IV PRN ×2 (11:28→20:00)
--- NOTE | 2019-11-02 11:38 | PDOC H&P ---
History of Present Illness Admission Date/PCP: CLINTON TIDWELL MD History of Present Illness: SHELLEY RODRÍGUEZ is a 54 year old female who is well-known to this facility who was just discharged from here a few days ago to go to [facility] nursing [facility]. The reason for her to go there, in addition to rehab for therapeutic purposes, was for management and oversight of her chronic medications, because she has displayed a pattern of being either unable or unwilling to take them as prescribed, and has had multiple complications as a result. She always denies any suicidal ideation. Today she was found around 6 AM facedown in the floor, and apparently there was an empty pill bottle for her Tegretol, along with an intact pill in her bed. She was encephalopathic. She was brought to the ER and evaluated and found to have a high Tegretol level, higher than the scale for which we are able to test here. Fortunately, she does not have any QRS prolongation. She was tachycardic initially but her heart rate is come down some now. She arouses to verbal command and answers questions but does not always answer them appropriately. She is not hyperthermic. She is not hypotensive. She has not displayed any seizure-like activity. Past Medical History Pulmonary Medical History: Reports: Chronic Obstructive Pulmonary Disease (COPD) Neurological Medical History: Comment Only: Seizures - UNKNOWN, AMS Endocrine Medical History: Reports: Diabetes Mellitus Type 2, Hypothyroidism Psychiatric Medical History: Reports: Depression, Personality Disorder Traumatic Medical History: Denies: Gunshot Wound, Pneumothorax Hematology: Denies: Sickle Cell Disease Infectious Medical History: Denies: HIV Past Surgical History Past Surgical History: Comment Only: Hysterectomy - UNKNOW, AMS Social History Smoking Status: Unknown if Ever Smoked Hx Recreational Drug Use: Yes Hx Prescription Drug Abuse: Yes Family History Family History: Reviewed & Not Pertinent, Other Parental Family History Reviewed: No - Unable to obtain Children Family History Reviewed: NA Sibling(s) Family History Reviewed.: No - Unable to obtain Medication/Allergy Home Medications: Amitriptyline HCl [Elavil 25 mg Tablet] 25 mg PO QHS 09/25/19 Amlodipine Besylate [Norvasc 10 mg Tablet] 10 mg PO DAILY 09/25/19 Carbamazepine [Carbamazepine ER] 200 mg PO Q12 09/25/19 Duloxetine HCl [Cymbalta] 60 mg PO QAM 09/25/19 Gabapentin [Neurontin] 800 mg PO QIDP PRN 09/25/19 Levothyroxine Sodium [Synthroid] 175 mcg PO Q6AM 09/25/19 Lisinopril [Prinivil 10 mg Tablet] 10 mg PO QHS 09/25/19 Metformin HCl [Glucophage] 1,000 mg PO BID 09/25/19 Aspirin [Aspir-Low] 81 mg PO DAILY #30 tablet. 10/08/19 Atorvastatin Calcium [Lipitor 80 mg Tablet] 80 mg PO QHS #30 tablet 10/08/19 Baclofen [Baclofen 10 mg Tablet] 10 mg PO TIDP PRN 10/24/19 Lisinopril 20 mg PO QAM 10/24/19 Aripiprazole [Abilify 5 mg Tablet] 10 mg PO DAILY 30 Days #30 tablet 10/30/19 Docusate Sodium [Colace 100 mg Capsule] 100 mg PO BID capsule 10/30/19 Metoprolol Tartrate [Lopressor 25 mg Tablet] 25 mg PO Q12 30 Days #60 tablet 10/30/19 Allergies/Adverse Reactions: Penicillins Allergy (Verified 10/01/19 08:39) itchiness and occasional diff breathing Review of Systems ROS unobtainable: Due to mental status Physical Exam Vital Signs: Temp Pulse Resp BP Pulse Ox 97.9 F 10 L 139/89 H 99 11/02/19 08:32 11/02/19 10:01 11/02/19 10:01 11/02/19 10:01 Intake & Output 11/01/19 11/02/19 11/03/19 06:59 06:59 06:59 Intake Total 1999 Balance 1999 Weight 52.8 kg General appearance: PRESENT: disheveled, mild distress, thin, other - A bit tremulous Head exam: PRESENT: atraumatic, normocephalic Eye exam: PRESENT: EOMI, PERRLA. ABSENT: conjunctival injection, nystagmus, scleral icterus Ear exam: PRESENT: normal external ear exam Mouth exam: PRESENT: dry mucosa, neck supple Teeth exam: PRESENT: poor dentation Neck exam: PRESENT: full ROM. ABSENT: carotid bruit, JVD, lymphadenopathy, meningismus, tenderness, thyromegaly Respiratory exam: PRESENT: clear to auscultation jaqueline, symmetrical, unlabored. ABSENT: accessory muscle use, chest wall tenderness, crackles, prolonged expiratory phas, rhonchi, tachypnea, wheezes Cardiovascular exam: PRESENT: RRR, +S1, +S2 Pulses: PRESENT: normal carotid pulses Vascular exam: PRESENT: normal capillary refill GI/Abdominal exam: PRESENT: hypoactive bowel sounds, soft. ABSENT: distended, guarding, rebound, tenderness Extremities exam: ABSENT: clubbing, pedal edema Musculoskeletal exam: PRESENT: normal inspection. ABSENT: deformity Neurological exam: PRESENT: altered, awake, oriented to person, other - No focal deficits. ABSENT: oriented to place, oriented to time, oriented to situation Psychiatric exam: PRESENT: flat affect Skin exam: PRESENT: dry, warm Results Laboratory Results: 11/02/19 06:48 11/02/19 06:48 11/02/19 11/02/19 11/02/19 06:48 06:48 06:48 WBC 11.0 H RBC 4.26 Hgb 11.8 L Hct 36.1 MCV 85 MCH 27.7 MCHC 32.7 RDW 18.7 H Plt Count 464 H Seg Neutrophils % 64.8 VBG pH VBG pCO2 VBG HCO3 VBG Base Excess Sodium 136.2 L Potassium 4.9 Chloride 97 L Carbon Dioxide 31 H Anion Gap 8 BUN 20 Creatinine 0.86 Est GFR ( Amer) > 60 Glucose 171 H Calcium 9.7 Total Bilirubin 0.3 AST 30 Alkaline Phosphatase 79 Total Protein 6.6 Albumin 3.8 TSH 12.10 H 11/02/19 08:05 WBC RBC Hgb Hct MCV MCH MCHC RDW Plt Count Seg Neutrophils % VBG pH 7.35 VBG pCO2 55.7 VBG HCO3 29.8 VBG Base Excess 3.1 Sodium Potassium Chloride Carbon Dioxide Anion Gap BUN Creatinine Est GFR ( Amer) Glucose Calcium Total Bilirubin AST Alkaline Phosphatase Total Protein Albumin TSH 11/02/19 06:48 Troponin I 0.013 Impressions: Chest X-Ray 11/02/19 07:17 IMPRESSION: NO ACUTE RADIOGRAPHIC FINDING IN THE CHEST. Head CT 11/02/19 07:20 IMPRESSION: No acute intracranial findings. Assessment and Plan - Diagnosis (1) Carbamazepine poisoning Qualifiers: Injury intent: undetermined intent Is this a current diagnosis for this admission?: Yes Plan: This is a continuing problem with her and with her trend, despite the fact that she denies suicidal ideation, she continues to have episodes of overdose of her medications. I find it hard to believe that she accidentally took an entire bottle of Tegretol. Were going to do serial EKGs on her to evaluate her QRS interval to see if she needs a bicarbonate infusion. At this time, her QRS is normal. We will keep her on telemetry. Her other vital signs are stable so we will put her in IMCU instead of the ICU for now. We will have PRN Valium ordered in case she has seizure activity. (2) Toxic encephalopathy Is this a current diagnosis for this admission?: Yes Plan: Due to carbamazepine poisoning. This is expected to improve as her Tegretol level comes down. We will check the Tegretol level every 6 hours until we get a downward trend. (3) Sacral decubitus ulcer, stage III Is this a current diagnosis for this admission?: Yes Plan: Present on admission, continue local wound care (4) Hypothyroidism Qualifiers: Hypothyroidism type: unspecified Qualified Code(s): E03.9 - Hypothyroidism, unspecified Is this a current diagnosis for this admission?: Yes Plan: Continue Synthroid - Plan Summary Summary: I think that we are obligated now to suspect that all of this is intentional, despite the fact that many times before when a similar sort of thing has happened she has denied suicidal ideation. When she is medically stable, she will have to be evaluated by psychiatry to determine if she needs inpatient placement. I think that also whenever she leaves the hospital, whether or not she goes to inpatient psychiatry, she will need to be placed in some kind of a facility where her medications will be monitored and dosed for her so that she does not have access to them herself. - Time Time Spent with patient: 35 or more minutes - Inpatient Certification Based on my medical assessment, after consideration of the patient's comorbiditi es, presenting symptoms, or acuity I expect that the services needed warrant INPATIENT care.: Yes I certify that my determination is in accordance with my understanding of [facility]'s requirements for reasonable and necessary INPATIENT services [42 CFR 412.3e].: Yes Medical Necessity: Significant Comorbidiites Make Outpatient Treatment Too Risky, Need Close Monitoring Due to Risk of Patient Decompensation, Need For IV Fluids, Need For Continuous Telemetry Monitoring, Need for Neurological Checks, Risk of Complication if Not Cared For in Hospital
[2019-11-02 13:35] LABS: CREATINE KINASE MB 3.47 ng/mL (<4.55)
[2019-11-02 13:36] LABS: TROPONIN I < 0.012 ng/mL
[2019-11-02] MEDS ORDERED: ONDANSETRON HCL INJ/PF 4 MG/2 ML SDV ONE (14:50)
[2019-11-02] MEDS: HEPARIN SOD (PORCINE) 5,000 UNIT/ML 1 ML VIAL SUBCUT SCH ×2 (14:52→22:14)
[2019-11-02] MEDS ORDERED: ONDANSETRON HCL INJ/PF 4 MG/2 ML SDV IV PRN (14:53)
[2019-11-02 18:23] LABS: APPEARANCE,URINE CLEAR; BILIRUBIN,URINE NEGATIVE (NEGATIVE); COLOR,URINE STRAW; GLUCOSE, URINE 50 mg/dL (NEGATIVE); KETONES,URINE NEGATIVE (NEGATIVE); PROTEIN,URINE NEGATIVE (NEGATIVE); UROBILINOGEN,URINE NEGATIVE mg/dL (<2.0)
[2019-11-02 18:42] LABS: CREATINE KINASE MB 3.73 ng/mL (<4.55)
[2019-11-02 18:52] LABS: TROPONIN I < 0.012 ng/mL
[2019-11-03 00:11] LABS: CREATINE KINASE MB 3.12 ng/mL (<4.55); TROPONIN I 0.012 ng/mL
--- NOTE | 2019-11-03 00:24 | EKG REPORT ---
SEVERITY:- ABNORMAL ECG - SINUS RHYTHM LEFT ATRIAL ABNORMALITY CONSIDER ANTEROSEPTAL INFARCT : Confirmed by: Lucian Moran 03-Nov-2019 00:24:18
--- NOTE | 2019-11-03 00:24 | EKG REPORT ---
SEVERITY:- ABNORMAL ECG - SINUS RHYTHM CONSIDER ANTEROSEPTAL INFARCT : Confirmed by: Lucian Moran 03-Nov-2019 00:24:31
--- NOTE | 2019-11-03 00:24 | EKG REPORT ---
SEVERITY:- ABNORMAL ECG - SINUS RHYTHM PROBABLE LEFT ATRIAL ABNORMALITY LEFT VENTRICULAR HYPERTROPHY ANTERIOR Q WAVES, POSSIBLY DUE TO LVH : Confirmed by: Lucian Moran 03-Nov-2019 00:24:00
--- NOTE | 2019-11-03 00:25 | EKG REPORT ---
SEVERITY:- ABNORMAL ECG - SINUS TACHYCARDIA PROBABLE LEFT ATRIAL ABNORMALITY CONSIDER ANTEROSEPTAL INFARCT : Confirmed by: Lucian Moran 03-Nov-2019 00:24:49
[2019-11-03] MEDS: HYDRALAZINE HCL INJ/PF 20 MG/1 ML SDV IV PRN ×3 (00:28→23:48)
[2019-11-03] MEDS: RINGERS SOLUTION,LACTATED 1,000 ML IV PRN ×3 (05:26→21:09)
[2019-11-03] MEDS: HEPARIN SOD (PORCINE) 5,000 UNIT/ML 1 ML VIAL SUBCUT SCH ×3 (05:26→21:22)
[2019-11-03 07:30] LABS: HEMATOCRIT 35.3 % (36.0-47.0); HEMOGLOBIN 11.9 g/dL (12.0-15.5); MEAN CORPUSCULAR HEMOGLOBIN 28.7 pg (27.0-33.4); MEAN CORPUSCULAR HGB CONC 33.8 g/dL (32.0-36.0); MEAN CORPUSCULAR VOLUME 85 fl (80-97); PLATELET COUNT 503 10^3/uL (150-450); RED BLOOD COUNT 4.16 10^6/uL (3.72-5.28); RED CELL DISTRIBUTION WIDTH 18.9 % (11.5-14.0); WHITE BLOOD COUNT 7.7 10^3/uL (4.0-10.5)
[2019-11-03 07:57] LABS: ANION GAP 12 (5-19); BLOOD UREA NITROGEN 11 mg/dL (7-20); CALCIUM 10.1 mg/dL (8.4-10.2); CARBON DIOXIDE 30 mmol/L (22-30); CHLORIDE 96 mmol/L (98-107); GLUCOSE 118 mg/dL (75-110); POTASSIUM 4.6 mmol/L (3.6-5.0)
[2019-11-03] MEDS ORDERED: (PENDING PHARMACY ID) (Carbamazepine [Carbamazepine Er] 200 MG) PO SCH (10:00)
[2019-11-03] MEDS: DOCUSATE SODIUM 100 MG CAPSULE PO SCH ×2 (10:06→17:25)
[2019-11-03] MEDS: ARIPIPRAZOLE 5 MG TABLET PO SCH (10:06)
[2019-11-03] MEDS: METOPROLOL TARTRATE 25 MG TABLET PO SCH ×2 (10:06→21:21)
[2019-11-03] MEDS: AMLODIPINE BESYLATE 10 MG TABLET PO SCH (10:06)
[2019-11-03] MEDS: ASPIRIN 81 MG TABLET, ENT COATED PO SCH (10:06)
[2019-11-03] MEDS: DULOXETINE HCL 30 MG CAPSULE.DR PO SCH (12:56)
[2019-11-03] MEDS: CARBAMAZEPINE 200 MG TAB.SR.12H PO SCH ×2 (12:56→21:21)
--- NOTE | 2019-11-03 14:13 | PDOC PROGRESS REPORT ---
Subjective Progress Note for:: 11/03/19 Subjective:: No adverse events overnight. No seizure activity. No arrhythmias on telemetry. No evidence of QRS widening on EKG. No hypotension. Reason For Visit: CARBAMAZEPINE POISONING Physical Exam Vital Signs: Temp Pulse Resp BP Pulse Ox 98.2 F 70 16 173/80 H 99 11/03/19 11:47 11/03/19 11:47 11/03/19 11:47 11/03/19 11:47 11/03/19 11:47 Intake & Output 11/02/19 11/03/19 11/04/19 06:59 06:59 06:59 Intake Total 4120 942 Output Total 3850 Balance 270 942 Weight 59 kg General appearance: PRESENT: no acute distress, cooperative, disheveled Respiratory exam: PRESENT: clear to auscultation jaqueline, symmetrical, unlabored. ABSENT: accessory muscle use, chest wall tenderness, crackles, prolonged expiratory phas, rhonchi, tachypnea, wheezes Cardiovascular exam: PRESENT: RRR, +S1, +S2 Pulses: PRESENT: normal carotid pulses Vascular exam: PRESENT: normal capillary refill GI/Abdominal exam: PRESENT: normal bowel sounds, soft. ABSENT: distended, guarding, rebound, tenderness Extremities exam: ABSENT: clubbing, pedal edema Musculoskeletal exam: PRESENT: normal inspection. ABSENT: deformity Neurological exam: PRESENT: awake, oriented to person, oriented to place Psychiatric exam: PRESENT: flat affect. ABSENT: suicidal ideation - Denies Skin exam: PRESENT: dry, warm Results Laboratory Results: 11/03/19 07:10 11/03/19 07:10 11/02/19 11/03/19 11/03/19 17:16 07:10 07:10 WBC 7.7 RBC 4.16 Hgb 11.9 L Hct 35.3 L MCV 85 MCH 28.7 MCHC 33.8 RDW 18.9 H Plt Count 503 H Sodium 138.3 Potassium 4.6 Chloride 96 L Carbon Dioxide 30 Anion Gap 12 BUN 11 Creatinine 0.69 Est GFR ( Amer) > 60 Glucose 118 H Calcium 10.1 Magnesium 1.9 Urine Color STRAW Urine Appearance CLEAR Urine pH 8.0 Ur Specific [place] 1.010 Urine Protein NEGATIVE Urine Glucose (UA) 50 H Urine Ketones NEGATIVE Urine Blood NEGATIVE Urine RBC (Auto) 0 11/02/19 11/02/19 11/02/19 06:48 12:54 17:43 CK-MB (CK-2) 3.47 3.73 Troponin I 0.013 < 0.012 < 0.012 11/02/19 23:21 CK-MB (CK-2) 3.12 Troponin I 0.012 Impressions: Chest X-Ray 11/02/19 07:17 IMPRESSION: NO ACUTE RADIOGRAPHIC FINDING IN THE CHEST. Head CT 11/02/19 07:20 IMPRESSION: No acute intracranial findings. Assessment and Plan - Diagnosis (1) Carbamazepine poisoning Qualifiers: Injury intent: undetermined intent Is this a current diagnosis for this admission?: Yes Plan: Resolved. Intent is undetermined, but given her pattern of behavior the last several months, it is suspicious that this was intentional. She has done this before. There is some concern that she has also previously overdosed on medications that we cannot readily test for. Because of her pattern of behavior, I am concerned that she is a danger to herself. IVC paperwork has been filled out. Psychiatry consult has been requested. (2) Toxic encephalopathy Is this a current diagnosis for this admission?: Yes Plan: Resolved. Mental status is back to baseline. Carbamazepine level is now normal. (3) Sacral decubitus ulcer, stage III Is this a current diagnosis for this admission?: Yes Plan: Present on admission, continue local wound care (4) Hypothyroidism Qualifiers: Hypothyroidism type: unspecified Qualified Code(s): E03.9 - Hypothyroidism, unspecified Is this a current diagnosis for this admission?: Yes Plan: Continue Synthroid - Plan Summary Summary: I think that we are obligated now to suspect that all of this is intentional, despite the fact that many times before when a similar sort of thing has happened she has denied suicidal ideation. When she is medically stable, she will have to be evaluated by psychiatry to determine if she needs inpatient placement. I think that also whenever she leaves the hospital, whether or not she goes to inpatient psychiatry, she will need to be placed in some kind of a facility where her medications will be monitored and dosed for her so that she does not have access to them herself. - Time Time Spent with patient: 15-24 minutes
--- NOTE | 2019-11-03 14:22 | EKG REPORT ---
SEVERITY:- ABNORMAL ECG - SINUS RHYTHM PROBABLE LEFT ATRIAL ABNORMALITY ANTERIOR INFARCT, AGE INDETERMINATE BORDERLINE PROLONGED QT INTERVAL : Confirmed by: Lucian Moran 03-Nov-2019 14:22:28
--- NOTE | 2019-11-03 20:59 | PSYCHOLOGICAL NOTE ---
Psych Note - Psych Note Date seen by psych provider: 11/03/19 Time seen by psych provider: 19:15 Psych Note: Reason for consult: Suspected Intentional Overdose Patient is a 54 year old female who is suspected of multiple intentional overdoses with prescription medications. Patient is well known to behavioral health team. Please be advised of following capacity report dated 10/07/2019: Patient can demonstrate orientation to everything correctly other than county and year. She is able to demonstrate strong problem solving and safety skills but struggled with abstract and rational thinking, memory and executive functions, and visuospatial organizational abilities. These deficits are unsurprising/expected after her CVA event. Patient was able to engage appropriately and discuss her medication she is prescribed (by name) and the conditions for which she takes them. She identified she overdosed accidentally and reports she thinks she took her medication twice because she forgot she had already taken it. She identified the concern this would cause and problem solved (unprompted) by stating she would like to get a pill organizer to help her see when she has taken her medication or not. Patient does have a substance abuse history of opioid prescription pills. She adamantly denies suicidal ideation or intentional overdose. At this time, the patient is recommended to have home health or some other agency assist with home check ins while still a djusting/recovering from her cognitive challenges after her stroke. She is also recommended for a medical power of disability attorney. Patient continues to demonstrate concerning denial in regards to her probable relapse with prescription pills and her clear inability to reportedly recall when she has taken her medications (she has overdosed 3 times since June). She was sent for inpatient treatment after her second overdose on 07/27/2019 to [facility] (she was transferred on 08/06/2019). Unfortunately, until the patient is ready to admit and engage in substance abuse treatment, efforts at substance abuse treatment will be unsuccessful. Patient is also recommended to follow up with her neurologist. Patient continues to deny current and past overdose events were suicide attempts. Patient raised her voice and stared at clinician when asked if current and past episodes were suicide attempts. Patient denied a desire to . Clinician observed patient is overly focused during the evaluation on her prescription Neurontin to manage arm and leg pain. Patient expressed she kept her medications due to a lack of trust with the staff at [facility]. Patient states she was not given her Neurontin as prescribed at [facility]. Patient states she was provided approximately 800MG total of Neurontin, not the 800MG four times a day as prescribed. Patient referred to current situation as a pass out. Patient states an overall unpleasant experience during her time at [facility]. Patient would refer to nothing showing up on lab work when clinician would speak of past overdoses. Clinician advised patient that overdosing on prescription medications that may not show on toxicology reports and the intent behind the behavior is of concern. Patient again denies suicidal ideation. Patient is alert and oriented to person, place, time and circumstance. Mood is eurythmic with congruent affect. Patient denies suicidal and homicidal ideations. Delusions are absent and behavior is congruent with an intact reality based presentation (i.e.: organized and linear through processes). There is no observed behavior suggesting patient is responding to internal stimuli. Patient denies current auditory and visual hallucinations. Eye contact is appropriate. Conversational speech is within normal rate, tone, and prosody. Intellectual ability appears to be within average range. Attention and concentration are good. Insight, judgment and impulse control are historically and currently poor. DSM Diagnosis: Neurocognitive Disorder Substance Use Disorder, Unspecified Medication recommendations per [facility] contracted psychiatrist Dr. Lang GREGG is as follows: None Impression/Plan: Patient is cleared from acute psychiatric services. Patient does not meet IVC criteria per [place] GS 122C. Patient denies suicidal and homicidal ideations. There is no observed behavior that suggests patient is responding to internal stimuli. Patient denies current auditory and visual hallucinations. Patient is being admitted to hospital for medical concerns and observation. Patient is well known to ED and medical staff. Patient continues to maintain overdoses are not a suicide attempts. Given the conflict with the prior roommate and negative experience at [facility], it is possible the overdoses were an attempt to leave a perceived stressful environment and be sent to the hospital. Even more likely however, is that patient is continuing to experience cognitive challenges such as memory difficulties and intermittent confusion from her recent CVA creating a situation where she truly is not capable of appropriately managing her medications, creating inadvertent overdoses. Given she is overdosing on different medications each time, the likelihood is felt to be more cognitive in nature than volitional or secondary gain in nature. As such, psychiatric inpatient care is not warranted, and the patient would be better served through cognitive remediation through participation in occupational therapy. Dr. Crawford was consulted on the care and management of this patient. Attending Physician is not in agreement with consultation recommendations and disposition. As such, behavioral health services are no longer needed for this patient, as behavioral health does not agree with any inpatient psychiatric care.
[2019-11-03] MEDS: METFORMIN HCL 500 MG TABLET PO SCH (21:21)
[2019-11-03] MEDS: ATORVASTATIN CALCIUM 80 MG TABLET PO SCH (21:21)
[2019-11-04] MEDS: ACETAMINOPHEN 325 MG TABLET PO PRN ×2 (03:52→13:50)
[2019-11-04] MEDS: RINGERS SOLUTION,LACTATED 1,000 ML IV PRN ×2 (04:56→13:51)
[2019-11-04] MEDS: HEPARIN SOD (PORCINE) 5,000 UNIT/ML 1 ML VIAL SUBCUT SCH ×3 (05:06→21:53)
[2019-11-04 05:09] LABS: HEMATOCRIT 29.1 % (36.0-47.0); HEMOGLOBIN 9.9 g/dL (12.0-15.5); MEAN CORPUSCULAR HEMOGLOBIN 28.4 pg (27.0-33.4); MEAN CORPUSCULAR HGB CONC 33.9 g/dL (32.0-36.0); MEAN CORPUSCULAR VOLUME 84 fl (80-97); PLATELET COUNT 400 10^3/uL (150-450); RED BLOOD COUNT 3.47 10^6/uL (3.72-5.28); RED CELL DISTRIBUTION WIDTH 18.9 % (11.5-14.0); WHITE BLOOD COUNT 7.4 10^3/uL (4.0-10.5)
[2019-11-04 05:31] LABS: ANION GAP 11 (5-19); BLOOD UREA NITROGEN 18 mg/dL (7-20); CALCIUM 9.3 mg/dL (8.4-10.2); CARBON DIOXIDE 26 mmol/L (22-30); CHLORIDE 98 mmol/L (98-107); GLUCOSE 99 mg/dL (75-110); POTASSIUM 4.1 mmol/L (3.6-5.0)
[2019-11-04] MEDS: DULOXETINE HCL 30 MG CAPSULE.DR PO SCH (09:39)
[2019-11-04] MEDS: ARIPIPRAZOLE 5 MG TABLET PO SCH (09:40)
[2019-11-04] MEDS: DOCUSATE SODIUM 100 MG CAPSULE PO SCH ×2 (09:40→17:40)
[2019-11-04] MEDS: CARBAMAZEPINE 200 MG TAB.SR.12H PO SCH ×2 (09:40→21:53)
[2019-11-04] MEDS: ASPIRIN 81 MG TABLET, ENT COATED PO SCH (09:40)
[2019-11-04] MEDS: METFORMIN HCL 500 MG TABLET PO SCH ×2 (09:40→21:53)
[2019-11-04] MEDS: AMLODIPINE BESYLATE 10 MG TABLET PO SCH (09:40)
[2019-11-04] MEDS: METOPROLOL TARTRATE 25 MG TABLET PO SCH ×2 (09:40→21:53)
--- NOTE | 2019-11-04 15:43 | PDOC PROGRESS REPORT ---
Subjective Progress Note for:: 11/04/19 Subjective:: No adverse events overnight. Mental status is back to baseline. Tegretol level is normal. She is eating and drinking without difficulty. She was telling me that she could not use her right arm as well but I saw her pickling drum operator a cup and bring it to her mouth and get a drink of water, and her right arm and right hand seem to be working just fine at that time. Reason For Visit: CARBAMAZEPINE POISONING Physical Exam Vital Signs: Temp Pulse Resp BP Pulse Ox 98.3 F 80 16 144/75 H 98 11/04/19 03:54 11/04/19 14:00 11/04/19 03:54 11/04/19 03:54 11/04/19 03:54 Intake & Output 11/03/19 11/04/19 11/05/19 06:59 06:59 06:59 Intake Total 4120 4235 1000 Output Total 3850 4700 Balance 270 -465 1000 Weight 59 kg 58.7 kg General appearance: PRESENT: no acute distress, cooperative, disheveled Respiratory exam: PRESENT: clear to auscultation jaqueline, symmetrical, unlabored. ABSENT: accessory muscle use, chest wall tenderness, crackles, prolonged expiratory phas, rhonchi, tachypnea, wheezes Cardiovascular exam: PRESENT: RRR, +S1, +S2 Pulses: PRESENT: normal carotid pulses Vascular exam: PRESENT: normal capillary refill GI/Abdominal exam: PRESENT: normal bowel sounds, soft. ABSENT: distended, guarding, rebound, tenderness Extremities exam: ABSENT: clubbing, pedal edema Musculoskeletal exam: PRESENT: normal inspection. ABSENT: deformity Neurological exam: PRESENT: awake, oriented to person, oriented to place Psychiatric exam: PRESENT: flat affect. ABSENT: suicidal ideation - Denies Skin exam: PRESENT: dry, warm Results Laboratory Results: 11/04/19 04:24 11/04/19 04:24 11/04/19 11/04/19 04:24 04:24 WBC 7.4 RBC 3.47 L Hgb 9.9 L Hct 29.1 L MCV 84 MCH 28.4 MCHC 33.9 RDW 18.9 H Plt Count 400 Sodium 135.2 L Potassium 4.1 Chloride 98 Carbon Dioxide 26 Anion Gap 11 BUN 18 Creatinine 0.81 Est GFR ( Amer) > 60 Glucose 99 Calcium 9.3 Magnesium 1.8 11/02/19 11/02/19 11/02/19 06:48 12:54 17:43 CK-MB (CK-2) 3.47 3.73 Troponin I 0.013 < 0.012 < 0.012 11/02/19 23:21 CK-MB (CK-2) 3.12 Troponin I 0.012 Impressions: Chest X-Ray 11/02/19 07:17 IMPRESSION: NO ACUTE RADIOGRAPHIC FINDING IN THE CHEST. Head CT 11/02/19 07:20 IMPRESSION: No acute intracranial findings. Assessment and Plan - Diagnosis (1) Carbamazepine poisoning Qualifiers: Injury intent: undetermined intent Is this a current diagnosis for this admission?: Yes Plan: Resolved. She was seen by psychology who did not believe she meets criteria for IVC. (2) Toxic encephalopathy Is this a current diagnosis for this admission?: Yes Plan: Resolved. Mental status is back to baseline. Carbamazepine level is now normal. (3) Sacral decubitus ulcer, stage III Is this a current diagnosis for this admission?: Yes Plan: Present on admission, continue local wound care (4) Hypothyroidism Qualifiers: Hypothyroidism type: unspecified Qualified Code(s): E03.9 - Hypothyroidism, unspecified Is this a current diagnosis for this admission?: Yes Plan: Continue Synthroid - Plan Summary Summary: She has a Medicaid application pending, and she has otherwise has no payer source to go to an assisted living facility, and she cannot go back to a detention facility. She has been cleared from inpatient psychiatry. At this point the only options we have for her are to offer inpatient substance abuse treatment, or [facility] - Time Time Spent with patient: 15-24 minutes
[2019-11-04] MEDS: GABAPENTIN 400 MG CAPSULE PO SCH ×2 (17:40→23:32)
[2019-11-04] MEDS: ATORVASTATIN CALCIUM 80 MG TABLET PO SCH (21:53)
[2019-11-05] MEDS: HYDRALAZINE HCL INJ/PF 20 MG/1 ML SDV IV PRN (01:19)
[2019-11-05] MEDS: ACETAMINOPHEN 325 MG TABLET PO PRN ×3 (01:19→18:11)
[2019-11-05] MEDS: GABAPENTIN 400 MG CAPSULE PO SCH ×4 (05:07→23:35)
[2019-11-05] MEDS: HEPARIN SOD (PORCINE) 5,000 UNIT/ML 1 ML VIAL SUBCUT SCH ×3 (05:07→21:50)
[2019-11-05 05:21] LABS: HEMATOCRIT 31.1 % (36.0-47.0); HEMOGLOBIN 10.4 g/dL (12.0-15.5); MEAN CORPUSCULAR HEMOGLOBIN 28.2 pg (27.0-33.4); MEAN CORPUSCULAR HGB CONC 33.4 g/dL (32.0-36.0); MEAN CORPUSCULAR VOLUME 85 fl (80-97); PLATELET COUNT 400 10^3/uL (150-450); RED BLOOD COUNT 3.68 10^6/uL (3.72-5.28); RED CELL DISTRIBUTION WIDTH 18.7 % (11.5-14.0); WHITE BLOOD COUNT 7.8 10^3/uL (4.0-10.5)
[2019-11-05 05:41] LABS: ANION GAP 10 (5-19); BLOOD UREA NITROGEN 17 mg/dL (7-20); CALCIUM 9.6 mg/dL (8.4-10.2); CARBON DIOXIDE 26 mmol/L (22-30); CHLORIDE 98 mmol/L (98-107); GLUCOSE 96 mg/dL (75-110); POTASSIUM 4.3 mmol/L (3.6-5.0)
[2019-11-05] MEDS: DULOXETINE HCL 30 MG CAPSULE.DR PO SCH (08:50)
[2019-11-05] MEDS: DOCUSATE SODIUM 100 MG CAPSULE PO SCH ×2 (09:15→18:09)
[2019-11-05] MEDS: ASPIRIN 81 MG TABLET, ENT COATED PO SCH (09:15)
[2019-11-05] MEDS: METOPROLOL TARTRATE 25 MG TABLET PO SCH ×2 (09:15→21:50)
[2019-11-05] MEDS: AMLODIPINE BESYLATE 10 MG TABLET PO SCH (09:15)
[2019-11-05] MEDS: ARIPIPRAZOLE 5 MG TABLET PO SCH (09:15)
[2019-11-05] MEDS: METFORMIN HCL 500 MG TABLET PO SCH ×2 (09:15→21:50)
[2019-11-05] MEDS: CARBAMAZEPINE 200 MG TAB.SR.12H PO SCH ×2 (09:16→21:50)
--- NOTE | 2019-11-05 15:18 | PDOC PROGRESS REPORT ---
Subjective Progress Note for:: 11/05/19 Subjective:: No adverse events overnight. No new complaints. Vital signs are stable. Eating and drinking without difficulty. Reason For Visit: CARBAMAZEPINE POISONING Physical Exam Vital Signs: Temp Pulse Resp BP Pulse Ox 98.3 F 76 18 128/65 H 100 11/05/19 15:11 11/05/19 15:11 11/05/19 15:11 11/05/19 15:11 11/05/19 15:11 Intake & Output 11/04/19 11/05/19 11/06/19 06:59 06:59 06:59 Intake Total 4235 2333 Output Total 4700 1000 Balance -465 1333 Weight 58.7 kg 57.6 kg General appearance: PRESENT: no acute distress, cooperative, disheveled Respiratory exam: PRESENT: clear to auscultation jaqueline, symmetrical, unlabored. ABSENT: accessory muscle use, chest wall tenderness, crackles, prolonged expiratory phas, rhonchi, tachypnea, wheezes Cardiovascular exam: PRESENT: RRR, +S1, +S2 Pulses: PRESENT: normal carotid pulses Vascular exam: PRESENT: normal capillary refill GI/Abdominal exam: PRESENT: normal bowel sounds, soft. ABSENT: distended, guarding, rebound, tenderness Extremities exam: ABSENT: clubbing, pedal edema Musculoskeletal exam: PRESENT: normal inspection. ABSENT: deformity Neurological exam: PRESENT: awake, oriented to person, oriented to place Psychiatric exam: PRESENT: flat affect. ABSENT: suicidal ideation - Denies Skin exam: PRESENT: dry, warm Results Laboratory Results: 11/05/19 04:45 11/05/19 04:45 11/05/19 11/05/19 04:45 04:45 WBC 7.8 RBC 3.68 L Hgb 10.4 L Hct 31.1 L MCV 85 MCH 28.2 MCHC 33.4 RDW 18.7 H Plt Count 400 Sodium 134.3 L Potassium 4.3 Chloride 98 Carbon Dioxide 26 Anion Gap 10 BUN 17 Creatinine 0.81 Est GFR ( Amer) > 60 Glucose 96 Calcium 9.6 Magnesium 1.6 11/02/19 11/02/19 11/02/19 06:48 12:54 17:43 CK-MB (CK-2) 3.47 3.73 Troponin I 0.013 < 0.012 < 0.012 12/16/19 23:21 CK-MB (CK-2) 3.12 Troponin I 0.012 Impressions: Chest X-Ray 11/02/19 07:17 IMPRESSION: NO ACUTE RADIOGRAPHIC FINDING IN THE CHEST. Head CT 11/02/19 07:20 IMPRESSION: No acute intracranial findings. Assessment and Plan - Diagnosis (1) Carbamazepine poisoning Qualifiers: Injury intent: undetermined intent Is this a current diagnosis for this admission?: Yes Plan: Resolved. She was seen by psychology who did not believe she meets criteria for IVC. (2) Toxic encephalopathy Is this a current diagnosis for this admission?: Yes Plan: Resolved. Mental status is back to baseline. Carbamazepine level is now normal. (3) Sacral decubitus ulcer, stage III Is this a current diagnosis for this admission?: Yes Plan: Present on admission, continue local wound care (4) Hypothyroidism Qualifiers: Hypothyroidism type: unspecified Qualified Code(s): E03.9 - Hypothyroidism, unspecified Is this a current diagnosis for this admission?: Yes Plan: Continue Synthroid - Plan Summary Summary: She has a Medicaid application pending, and she has otherwise has no payer source to go to an assisted living facility, and she cannot go back to a fpc facility. She has been cleared from inpatient psychiatry. At this point the only options we have for her are to offer inpatient substance abuse treatment, or she will be discharged to the homeless detention. She has elected to go to inpatient substance abuse treatment. Case management is involved in dispositioning. - Time Time Spent with patient: 15-24 minutes
[2019-11-05] MEDS: ATORVASTATIN CALCIUM 80 MG TABLET PO SCH (21:50)
[2019-11-06] MEDS: GABAPENTIN 400 MG CAPSULE PO SCH ×4 (05:03→23:08)
[2019-11-06] MEDS: HEPARIN SOD (PORCINE) 5,000 UNIT/ML 1 ML VIAL SUBCUT SCH ×3 (05:03→22:01)
[2019-11-06] MEDS: ACETAMINOPHEN 325 MG TABLET PO PRN (07:34)
[2019-11-06] MEDS: DULOXETINE HCL 30 MG CAPSULE.DR PO SCH (07:34)
[2019-11-06] MEDS: AMLODIPINE BESYLATE 10 MG TABLET PO SCH (09:14)
[2019-11-06] MEDS: ASPIRIN 81 MG TABLET, ENT COATED PO SCH (09:14)
[2019-11-06] MEDS: METOPROLOL TARTRATE 25 MG TABLET PO SCH ×2 (09:14→22:00)
[2019-11-06] MEDS: DOCUSATE SODIUM 100 MG CAPSULE PO SCH ×2 (09:14→18:17)
[2019-11-06] MEDS: METFORMIN HCL 500 MG TABLET PO SCH ×2 (09:14→21:59)
[2019-11-06] MEDS: CARBAMAZEPINE 200 MG TAB.SR.12H PO SCH ×2 (09:15→21:59)
[2019-11-06] MEDS: ARIPIPRAZOLE 5 MG TABLET PO SCH (09:15)
--- NOTE | 2019-11-06 16:50 | PDOC PROGRESS REPORT ---
Subjective Progress Note for:: 11/06/19 Subjective:: No adverse events overnight. No new complaints. Vital signs been stable. Eating and drinking without difficulty. Reason For Visit: CARBAMAZEPINE POISONING Physical Exam Vital Signs: Temp Pulse Resp BP Pulse Ox 97.9 F 72 17 151/91 H 100 11/06/19 11:21 11/06/19 14:00 11/06/19 11:21 11/06/19 11:21 11/06/19 11:21 Intake & Output 11/05/19 11/06/19 11/07/19 06:59 06:59 06:59 Intake Total 2333 1860 720 Output Total 1000 500 Balance 1333 1860 220 Weight 57.6 kg 57 kg General appearance: PRESENT: no acute distress, cooperative, disheveled Respiratory exam: PRESENT: clear to auscultation jaqueline, symmetrical, unlabored. ABSENT: accessory muscle use, chest wall tenderness, crackles, prolonged expiratory phas, rhonchi, tachypnea, wheezes Cardiovascular exam: PRESENT: RRR, +S1, +S2 Pulses: PRESENT: normal carotid pulses Vascular exam: PRESENT: normal capillary refill GI/Abdominal exam: PRESENT: normal bowel sounds, soft. ABSENT: distended, guarding, rebound, tenderness Extremities exam: ABSENT: clubbing, pedal edema Musculoskeletal exam: PRESENT: normal inspection. ABSENT: deformity Neurological exam: PRESENT: awake, oriented to person, oriented to place Psychiatric exam: PRESENT: flat affect. ABSENT: suicidal ideation - Denies Skin exam: PRESENT: dry, warm Results Laboratory Results: 11/05/19 04:45 11/05/19 04:45 11/02/19 11/02/19 11/02/19 06:48 12:54 17:43 CK-MB (CK-2) 3.47 3.73 Troponin I 0.013 < 0.012 < 0.012 11/02/19 23:21 CK-MB (CK-2) 3.12 Troponin I 0.012 Impressions: Chest X-Ray 11/02/19 07:17 IMPRESSION: NO ACUTE RADIOGRAPHIC FINDING IN THE CHEST. Head CT 11/02/19 07:20 IMPRESSION: No acute intracranial findings. Assessment and Plan - Diagnosis (1) Carbamazepine poisoning Qualifiers: Injury intent: undetermined intent Is this a current diagnosis for this admission?: Yes Plan: Resolved. She was seen by psychology who did not believe she meets criteria for IVC. (2) Toxic encephalopathy Is this a current diagnosis for this admission?: Yes Plan: Resolved. Mental status is back to baseline. Carbamazepine level is now normal. (3) Sacral decubitus ulcer, stage III Is this a current diagnosis for this admission?: Yes Plan: Present on admission, continue local wound care (4) Hypothyroidism Qualifiers: Hypothyroidism type: unspecified Qualified Code(s): E03.9 - Hypothyroidism, unspecified Is this a current diagnosis for this admission?: Yes Plan: Continue Synthroid - Plan Summary Summary: She has a Medicaid application pending, and she has otherwise has no payer source to go to an assisted living facility, and she cannot go back to a long term facility. She has been cleared from inpatient psychiatry. At this point the only options we have for her are to offer inpatient substance abuse treatment, or she will be discharged to the homeless senior care. She has elected to go to inpatient substance abuse treatment. Case management is involved in dispositioning. It seems that she has been accepted at [facility] and a bed is pending. - Time Time Spent with patient: 15-24 minutes
[2019-11-06] MEDS: ATORVASTATIN CALCIUM 80 MG TABLET PO SCH (21:59)
[2019-11-07] MEDS: HEPARIN SOD (PORCINE) 5,000 UNIT/ML 1 ML VIAL SUBCUT SCH ×2 (06:10→13:16)
[2019-11-07] MEDS: GABAPENTIN 400 MG CAPSULE PO SCH ×2 (06:10→12:08)
[2019-11-07] MEDS: DULOXETINE HCL 30 MG CAPSULE.DR PO SCH (07:34)
[2019-11-07] MEDS: ACETAMINOPHEN 325 MG TABLET PO PRN (07:34)
[2019-11-07] MEDS ORDERED: LEVOTHYROXINE SODIUM 0.1 MG TABLET PO SCH (08:00)
[2019-11-07] MEDS ORDERED: LEVOTHYROXINE SODIUM 0.075 MG TABLET PO SCH (08:00)
[2019-11-07] MEDS: METFORMIN HCL 500 MG TABLET PO SCH (09:46)
[2019-11-07] MEDS: ARIPIPRAZOLE 5 MG TABLET PO SCH (09:46)
[2019-11-07] MEDS: ASPIRIN 81 MG TABLET, ENT COATED PO SCH (09:46)
[2019-11-07] MEDS: AMLODIPINE BESYLATE 10 MG TABLET PO SCH (09:46)
[2019-11-07] MEDS: DOCUSATE SODIUM 100 MG CAPSULE PO SCH (09:47)
[2019-11-07] MEDS: METOPROLOL TARTRATE 25 MG TABLET PO SCH (09:47)
[2019-11-07] MEDS: CARBAMAZEPINE 200 MG TAB.SR.12H PO SCH (09:47)
--- NOTE | 2019-11-07 16:01 | PDOC DISCHARGE SUMMARY ---
Impression - Admit/DC Date/PCP Admission Date/Primary Care Provider: 11/02/19 11:23 CLINTON TIDWELL MD Discharge Date: 11/07/19 - Discharge Diagnosis (1) Carbamazepine poisoning Is this a current diagnosis for this admission?: Yes (2) Toxic encephalopathy Is this a current diagnosis for this admission?: Yes (3) Sacral decubitus ulcer, stage III Is this a current diagnosis for this admission?: Yes (4) Hypothyroidism Is this a current diagnosis for this admission?: Yes - Assessment Summary: She has a Medicaid application pending, and she has otherwise has no payer source to go to an assisted living facility, and she cannot go back to a shelter facility. She has been cleared from inpatient psychiatry. At this point the only options we have for her are to offer inpatient substance abuse treatment, or she will be discharged to the homeless group home. She has elected to go to inpatient substance abuse treatment. Case management is involved in dispositioning. It seems that she has been accepted at [facility] and a bed is pending. - Additional Information Resuscitation Status: Full Code Discharge Diet: Cardiac Discharge Activity: Supervised Activity Referrals: CLINTON TIDWELL MD [Primary Care Provider] - Follow up as needed Home Medications: Amlodipine Besylate [Norvasc 10 mg Tablet] 10 mg PO DAILY 09/25/19 Carbamazepine [Carbamazepine ER] 200 mg PO Q12 09/25/19 Duloxetine HCl [Cymbalta] 60 mg PO QAM 09/25/19 Gabapentin [Neurontin] 800 mg PO QIDP PRN 09/25/19 Levothyroxine Sodium [Synthroid] 175 mcg PO Q6AM 09/25/19 Lisinopril [Prinivil 10 mg Tablet] 10 mg PO QHS 09/25/19 Metformin HCl [Glucophage] 1,000 mg PO BID 09/25/19 Aspirin [Aspir-Low] 81 mg PO DAILY #30 tablet. 10/08/19 Atorvastatin Calcium [Lipitor 80 mg Tablet] 80 mg PO QHS #30 tablet 10/08/19 Lisinopril 20 mg PO QAM 10/24/19 Aripiprazole [Abilify 5 mg Tablet] 10 mg PO DAILY 30 Days #30 tablet 10/30/19 Docusate Sodium [Colace 100 mg Capsule] 100 mg PO BID capsule 10/30/19 Metoprolol Tartrate [Lopressor 25 mg Tablet] 25 mg PO Q12 30 Days #60 tablet 10/30/19 History of Present Illiness History of Present Illness: SHELLEY RODRÍGUEZ is a 54 year old female who is well-known to this facility who was just discharged from here a few days ago to go to [facility]. The reason for her to go there, in addition to rehab for therapeutic purposes, was for management and oversight of her chronic medications, because she has displayed a pattern of being either unable or unwilling to take them as prescribed, and has had multiple complications as a result. She always denies any suicidal ideation. Today she was found around 6 AM facedown in the floor, and apparently there was an empty pill bottle for her Tegretol, along with an intact pill in her bed. She was encephalopathic. She was brought to the ER and evaluated and found to have a high Tegretol level, higher than the scale for which we are able to test here. Fortunately, she does not have any QRS prolongation. She was tachycardic initially but her heart rate is come down some now. She arouses to verbal command and answers questions but does not always answer them appropriately. She is not hyperthermic. She is not hypotensive. She has not displayed any seizure-like activity. Hospital Course Hospital Course: She was given IV fluids and kept on the monitor. Tegretol level was monitored with serial fashion and fortunately trended down to normal range. Patient denied suicidal ideation and was cleared by behavioral health. This is the third time in the last few months and she has overdosed on medication, previously she had overdosed on Ambien and Seroquel. Her mental status recovered rapidly. She did not experience any adverse cardiac events. She was eating and drinking without difficulty. Patient voluntarily elected for inpatient behavioral health and substance abuse treatment. Bed was obtained at [facility] and she is being transferred in stable condition. Physical Exam Vital Signs: Temp Pulse Resp BP Pulse Ox 98.5 F 67 17 150/77 H 98 11/07/19 11:14 11/07/19 11:14 11/07/19 11:14 11/07/19 11:14 11/07/19 11:14 Intake & Output 11/06/19 11/07/19 11/08/19 06:59 06:59 06:59 Intake Total 1860 1080 720 Output Total 501 Balance 1860 579 720 Weight 57 kg 57.3 kg General appearance: PRESENT: no acute distress, cooperative, disheveled Respiratory exam: PRESENT: clear to auscultation jaqueline, symmetrical, unlabored. ABSENT: accessory muscle use, chest wall tenderness, crackles, prolonged expiratory phas, rhonchi, tachypnea, wheezes Cardiovascular exam: PRESENT: RRR, +S1, +S2 Pulses: PRESENT: normal carotid pulses Vascular exam: PRESENT: normal capillary refill GI/Abdominal exam: PRESENT: normal bowel sounds, soft. ABSENT: distended, gu arding, rebound, tenderness Extremities exam: ABSENT: clubbing, pedal edema Musculoskeletal exam: PRESENT: normal inspection. ABSENT: deformity Neurological exam: PRESENT: awake, oriented to person, oriented to place Psychiatric exam: PRESENT: flat affect. ABSENT: suicidal ideation - Denies Skin exam: PRESENT: dry, warm Results Laboratory Results: WBC 7.8 10^3/uL (4.0-10.5) 11/05/19 04:45 RBC 3.68 10^6/uL (3.72-5.28) L 11/05/19 04:45 Hgb 10.4 g/dL (12.0-15.5) L 11/05/19 04:45 Hct 31.1 % (36.0-47.0) L 11/05/19 04:45 MCV 85 fl (80-97) 11/05/19 04:45 MCH 28.2 pg (27.0-33.4) 11/05/19 04:45 MCHC 33.4 g/dL (32.0-36.0) 11/05/19 04:45 RDW 18.7 % (11.5-14.0) H 11/05/19 04:45 Plt Count 400 10^3/uL (150-450) 11/05/19 04:45 Lymph % (Auto) 26.6 % (13-45) 11/02/19 06:48 Izard % (Auto) 5.3 % (3-13) 11/02/19 06:48 Eos % (Auto) 2.3 % (0-6) 11/02/19 06:48 Baso % (Auto) 1.0 % (0-2) 11/02/19 06:48 Absolute Neuts (auto) 7.1 10^3/uL (1.7-8.2) 11/02/19 06:48 Absolute Lymphs (auto) 2.9 10^3/uL (0.5-4.7) 11/02/19 06:48 Absolute Monos (auto) 0.6 10^3/uL (0.1-1.4) 11/02/19 06:48 Absolute Eos (auto) 0.2 10^3/uL (0.0-0.6) 11/02/19 06:48 Absolute Basos (auto) 0.1 10^3/uL (0.0-0.2) 11/02/19 06:48 Seg Neutrophils % 64.8 % (42-78) 11/02/19 06:48 PT 11.0 SEC (11.4-15.4) L 11/02/19 06:48 INR 0.80 11/02/19 06:48 VBG pH 7.35 (7.30-7.42) 11/02/19 08:05 VBG pCO2 55.7 mmHg (35-63) 11/02/19 08:05 VBG HCO3 29.8 mmol/L (20-32) 11/02/19 08:05 VBG Base Excess 3.1 mmol/L 11/02/19 08:05 Sodium 134.3 mmol/L (137-145) L 11/05/19 04:45 Potassium 4.3 mmol/L (3.6-5.0) 11/05/19 04:45 Chloride 98 mmol/L (98-107) 11/05/19 04:45 Carbon Dioxide 26 mmol/L (22-30) 11/05/19 04:45 Anion Gap 10 (5-19) 11/05/19 04:45 BUN 17 mg/dL (7-20) 11/05/19 04:45 Creatinine 0.81 mg/dL (0.52-1.25) 11/05/19 04:45 Est GFR ( Amer) > 60 (>60) 11/05/19 04:45 Est GFR (MDRD) Non-Af > 60 (>60) 11/05/19 04:45 Glucose 96 mg/dL (75-110) 11/05/19 04:45 POC Glucose 108 mg/dL (70-110) 11/03/19 21:15 Lactic Acid (Sepsis) 2.2 mmol/L (0.7-2.1) H 11/02/19 13:56 Calcium 9.6 mg/dL (8.4-10.2) 11/05/19 04:45 Magnesium 1.6 mg/dL (1.6-2.3) 11/05/19 04:45 Total Bilirubin 0.3 mg/dL (0.2-1.3) 11/02/19 06:48 Direct Bilirubin 0.2 mg/dL (0.0-0.4) 11/02/19 06:48 Neonat Total Bilirubin Not Reportable 11/02/19 06:48 Neonat Direct Bilirubin Not Reportable 11/02/19 06:48 Neonat Indirect Bili Not Reportable 11/02/19 06:48 AST 30 U/L (14-36) 11/02/19 06:48 ALT 25 U/L (<35) 11/02/19 06:48 Alkaline Phosphatase 79 U/L (38-126) 11/02/19 06:48 CK-MB (CK-2) 3.12 ng/mL (<4.55) 11/02/19 23:21 Troponin I 0.012 ng/mL 11/02/19 23:21 Total Protein 6.6 g/dL (6.3-8.2) 11/02/19 06:48 Albumin 3.8 g/dL (3.5-5.0) 11/02/19 06:48 TSH 12.10 uIU/mL (0.47-4.68) H 11/02/19 06:48 Urine Color STRAW 11/02/19 17:16 Urine Appearance CLEAR 11/02/19 17:16 Urine pH 8.0 (5.0-9.0) 11/02/19 17:16 Ur Specific [place] 1.010 11/02/19 17:16 Urine Protein NEGATIVE mg/dL (NEGATIVE) 11/02/19 17:16 Urine Glucose (UA) 50 mg/dL (NEGATIVE) H 11/02/19 17:16 Urine Ketones NEGATIVE mg/dL (NEGATIVE) 11/02/19 17:16 Urine Blood NEGATIVE (NEGATIVE) 11/02/19 17:16 Urine Nitrite (Reflex) NEGATIVE (NEGATIVE) 11/02/19 17:16 Urine Bilirubin NEGATIVE (NEGATIVE) 11/02/19 17:16 Urine Urobilinogen NEGATIVE mg/dL (<2.0) 11/02/19 17:16 Leukocyte Esterase Rfl NEGATIVE (NEGATIVE) 11/02/19 17:16 Urine RBC (Auto) 0 /HPF 11/02/19 17:16 Urine WBC (Reflex) 1 /HPF 11/02/19 17:16 Squamous Epi Cells Auto <1 /HPF 11/02/19 17:16 Urine Ascorbic Acid NEGATIVE (NEGATIVE) 11/02/19 17:16 Salicylates < 1.0 mg/dL (2.0-20.0) L 11/02/19 06:48 Acetaminophen < 10 ug/mL (10-30) L 11/02/19 06:48 Carbamazepine 4.0 ug/mL (4.0-12.0) 11/03/19 13:56 Serum Alcohol < 10 mg/dL (NONE DETECTED) 11/02/19 06:48 11/02/19 11/02/19 11/02/19 06:48 12:54 17:43 CK-MB (CK-2) 3.47 3.73 Troponin I 0.013 < 0.012 < 0.012 11/02/19 23:21 CK-MB (CK-2) 3.12 Troponin I 0.012 Impressions: Chest X-Ray 11/02/19 07:17 IMPRESSION: NO ACUTE RADIOGRAPHIC FINDING IN THE CHEST. Head CT 11/02/19 07:20 IMPRESSION: No acute intracranial findings. Plan Time Spent: Greater than 30 Minutes Stroke Is this a Stroke Patient?: No Acute Heart Failure - Is this a Heart Failure Patient?: No
[2019-11-07 16:46] VITALS: BP 141/66
== END 2019-11-07 17:45 | DRG 917 ==
LOC: ER 07:00 → EH 11:23 → 3W 14:06
PROVIDERS: ADMIT Family Medicine; ATTEND Family Medicine
DX: T42.1X2A Poisoning by iminostilbenes, intentional self-harm, initial encounter (principal); L89.153 Pressure ulcer of sacral region, stage 3; R40.2122 Coma scale, eyes open, to pain, at arrival to emergency department; G92 Toxic encephalopathy; J44.9 Chronic obstructive pulmonary disease, unspecified; E11.9 Type 2 diabetes mellitus without complications; E03.9 Hypothyroidism, unspecified; F60.9 Personality disorder, unspecified; F32.9 Major depressive disorder, single episode, unspecified; R41.9 Unspecified symptoms and signs involving cognitive functions and awareness; R40.2352 Coma scale, best motor response, localizes pain, at arrival to emergency department; R40.2242 Coma scale, best verbal response, confused conversation, at arrival to emergency department; F17.210 Nicotine dependence, cigarettes, uncomplicated; Y92.122 Bedroom in nursing home as the place of occurrence of the external cause; Z79.84 Long term (current) use of oral hypoglycemic drugs; Z79.82 Long term (current) use of aspirin; Z79.899 Other long term (current) drug therapy; Z91.14 Patient's other noncompliance with medication regimen
CPT/HCPCS: 36415; 51702; 70450; 71045; 80048; 80053; 80156; 80307; 81001; 82553; 82803; 82962; 83605; 83735; 84443; 84484; 85025; 85027; 85610; 87040; 93005; 93010; 96361; 96374; 99285; J0360; J1644; J2310; J2405; J3490; J7030; J7120

== ENCOUNTER → 2020-04-15 | Outpatient (CLI) | payer MEDICARE ==
--- NOTE | 2020-04-15 15:26 | RADIOLOGY REPORT (SQ) ---
EXAM DESCRIPTION: ARTERIAL LOWER EXTREM BILAT IMAGES COMPLETED DATE/TIME: 04/15/2020 11:30 am REASON FOR STUDY: PVD I73.9 PERIPHERAL VASCULAR DISEASE, UNSPECIFIED COMPARISON: None. TECHNIQUE: Dynamic and static florian scale and color images acquired of the lower extremity arteries. Additional selected spectral images recorded. ABIs recorded. LIMITATIONS: None. FINDINGS: RIGHT LEG: ABIS: PT: 0.67 DP: 0.67 There are triphasic spectral waveforms in the common femoral artery and proximal profunda femoris wit h PSV of 130 cm/s and 190 cm/s respectively. The proximal SFA is patent with monophasic spectral wav eforms and a PSV of 50 cm/s. In the mid SFA there is an area of stenosis with elevated PSV (230 cm/s ) and biphasic waveforms. A segment of the distal SFA is occluded with probable distal reconstitutio n of the vessel via collaterals. The popliteal artery is patent with biphasic spectral waveforms and a PSV of 93 cm/s. The mid to distal anterior tibial artery is occluded. The dorsalis pedis is hdez nt and it is likely reconstituted via a collateral from the peroneal artery. The distal posterior ti bial and peroneal arteries are patent with monophasic spectral waveforms on the former and biphasic s pectral waveforms on the latter. LEFT LEG: ABIS: PT: 0.56 DP: 0.56 There are monophasic waveforms in the common femoral artery, proximal profunda femoris, SFA, poplitea l artery and calf vessels. The distal anterior tibial artery is occluded with likely reconstitution of the dorsalis pedis from collaterals. IMPRESSION: 1. Atherosclerotic disease in the arterial vasculature of the right lower extremity wit h ABIs of 0.67, a short-segment occlusion of the distal SFA, and a long segment occlusion of the mid to distal anterior tibial artery. 2. Probably inflow stenosis of the left lower extremity arterial vasculature given the monophasic wa veforms in the common femoral artery, proximal profunda femoris, SFA, popliteal artery and calf vesse ls. The distal anterior tibial artery is occluded with likely reconstitution of the dorsalis pedis fr om collaterals. COMMENT: OM NORMAL: Greater than 1.0 MINIMAL DISEASE: 0.9 to 1.0 CLAUDICATION: 0.5 to 0.9 SEVERE ARTERIAL DISEASE: Less than 0.5 [facility] NORMAL: Greater than 1.0 (1.2 If Heavy Calcifications) NORMAL TO MILD ISCHEMIA: 0.8 to 1.0 MODERATE ISCHEMIA: 0.4 to 0.8 SEVERE ISCHEMIA: Less than 0.4 TECHNICAL DOCUMENTATION: JOB ID: [id number] 2010 [employer]- All Rights Reserved Reading location - IP/workstation name: [email or web address]
== END ==
LOC: SP 09:26
PROVIDERS: ATTEND Nurse Practitioner Primary Care
DX: I73.9 Peripheral vascular disease, unspecified (principal); I77.1 Stricture of artery
CPT/HCPCS: 93925

== ENCOUNTER 2020-08-10 09:30 | Emergency (ER) | payer MEDICARE ==
[2020-08-10] MEDS ORDERED: ACETAMINOPHEN 325 MG TABLET PO ONE (10:02)
[2020-08-10] MEDS ORDERED: LEVOFLOXACIN 750 MG/D5W RTU 750 MG/150 ML RTUPB IV ONE (10:02)
[2020-08-10] MEDS ORDERED: VANCOMYCIN HCL INJ 1000 MG VIAL IV ONE (10:02)
[2020-08-10] MEDS ORDERED: RINGERS LACTATED IV ONE (10:02)
[2020-08-10 10:28] LABS: VENOUS BLOOD BASE EXCESS 1.2 mmol/L; VENOUS BLOOD HCO3 26.8 mmol/L (20-32); VENOUS BLOOD PCO2 46.3 mmHg (35-63); VENOUS BLOOD PH 7.38 (7.30-7.42)
[2020-08-10] MEDS ORDERED: MORPHINE SULFATE 10 MG/ML INJ IV ONE (10:32)
[2020-08-10 10:37] LABS: HEMATOCRIT 37.2 % (36.0-47.0); HEMOGLOBIN 12.9 g/dL (12.0-15.5); MEAN CORPUSCULAR HEMOGLOBIN 30.3 pg (27.0-33.4); MEAN CORPUSCULAR HGB CONC 34.7 g/dL (32.0-36.0); MEAN CORPUSCULAR VOLUME 87 fl (80-97); PLATELET COUNT 324 10^3/uL (150-450); RED BLOOD COUNT 4.26 10^6/uL (3.72-5.28); RED CELL DISTRIBUTION WIDTH 14.9 % (11.5-14.0); WHITE BLOOD COUNT 21.2 10^3/uL (4.0-10.5)
[2020-08-10 10:47] LABS: INTERNATIONAL RATION (INR) 0.95; PROTHROMBIN TIME 12.9 SEC (11.4-15.4)
[2020-08-10 10:48] LABS: ALBUMIN 3.9 g/dL (3.5-5.0); ALKALINE PHOSPHATASE 112 U/L (38-126); ANION GAP 8 (5-19); ASPARTATE AMINO TRANSFERASE 18 U/L (14-36); BILIRUBIN,DIRECT 0.4 mg/dL (0.0-0.4); BILIRUBIN,TOTAL 0.7 mg/dL (0.2-1.3); BLOOD UREA NITROGEN 20 mg/dL (7-20); CALCIUM 9.4 mg/dL (8.4-10.2); CARBON DIOXIDE 26 mmol/L (22-30); CHLORIDE 98 mmol/L (98-107); GLUCOSE 151 mg/dL (75-110); POTASSIUM 4.4 mmol/L (3.6-5.0); TOTAL PROTEIN 6.6 g/dL (6.3-8.2)
[2020-08-10 11:07] LABS: ABSOLUTE LYMPHOCYTES# (MANUAL) 3.6 10^3/uL (0.5-4.7); ABSOLUTE MONOCYTES # (MANUAL) 0.6 10^3/uL (0.1-1.4); BASOPHILS % (MANUAL) 0 % (0-2); EOSINOPHILS % (MANUAL) 0 % (0-6); LYMPHOCYTES % (MANUAL) 17 % (13-45); MONOCYTES % (MANUAL) 3 % (3-13); SEGMENTED NEUTROPHILS % (MAN) 80 % (42-78); TOTAL CELLS COUNTED 100
[2020-08-10 11:08] LABS: ANISOCYTOSIS SLIGHT; PLATELET COMMENT ADEQUATE; POLYCHROMASIA SLIGHT
--- NOTE | 2020-08-10 11:36 | ER Document Report ---
ED General - General Chief Complaint: Hand Swelling Stated Complaint: RIGHT HAND/ARM PAIN, SWELLING Time Seen by Provider: 08/10/20 09:55 Primary Care Provider: DELFINA CABELLO FNP-C [Primary Care Provider] - Follow up as needed Mode of Arrival: Ambulatory Information source: Patient TRAVEL OUTSIDE OF THE [place] IN LAST 30 DAYS: No - HPI Notes: Patient presents with right arm pain. She states is been going on for 3 to 4 days. It is constant. Severe. Is a burning and sharp sensation. It radiates up her right arm. She states it seemed to start after being scratched by her cat. She states she is a diabetic. And she states she has had cellulitis in the past. She is also had some fevers and chills. - Related Data Allergies/Adverse Reactions: Penicillins Allergy (Verified 08/10/20 09:37) itchiness and occasional diff breathing Home Medications: gabapentin. norvasc. metformin. thyroid. clonidine patch Past Medical History - General Information source: Patient - Social History Smoking Status: Current Every Day Smoker Chew tobacco use (# tins/day): No Frequency of alcohol use: None Drug Abuse: None Family History: Reviewed & Not Pertinent, Other Patient has homicidal ideation: No - Past Medical History Cardiac Medical History: Reports: Hx Hypertension Pulmonary Medical History: Reports: Hx COPD Neurological Medical History: Comment Only: Hx Seizures - UNKNOWN, AMS Endocrine Medical History: Reports: Hx Diabetes Mellitus Type 2, Hx Hypothyroidism Renal/ Medical History: Denies: Hx Peritoneal Dialysis Psychiatric Medical History: Reports: Hx Depression, Hx Personality Disorder Traumatic Medical History: Denies: Hx Gunshot Wound, Hx Pneumothorax Infectious Medical History: Denies: Hx HIV Past Surgical History: Reports: Hx Appendectomy, Hx Hysterectomy, Hx Orthopedic Surgery - neck plates, cervical fusions, rotator cuff surgery Review of Systems - Review of Systems Constitutional: Chills, Fever -: Yes All other systems reviewed and negative Physical Exam - Vital signs Vitals: Temp Pulse Resp BP Pulse Ox 101.7 F H 119 H 19 154/80 H 97 08/10/20 09:36 08/10/20 09:36 08/10/20 09:36 08/10/20 09:36 08/10/20 09:36 Interpretation: Tachycardic, Febrile - General General appearance: Appears well, Alert In distress: None - HEENT Head: Normocephalic, Atraumatic Eyes: Normal Pupils: PERRL - Respiratory Respiratory status: No respiratory distress Chest status: Nontender Breath sounds: Normal Chest palpation: Normal - Cardiovascular Rhythm: Tachycardia Heart sounds: Normal auscultation Murmur: No - Abdominal Inspection: Normal Distension: No distension Bowel sounds: Normal Tenderness: Nontender Organomegaly: No organomegaly - Back Back: Normal, Nontender - Extremities General upper extremity: Other - MildPatient's right upper extremity is tender and swollen mainly from the elbow to the wrist. Full signs of excoriation. It is warm and indurated as well. She has limited range of motion of the forearm and wrist secondary to pain. The swelling and erythema do extend into the dorsum of the hand as well. General lower extremity: Normal inspection, Nontender, Normal color, Normal ROM, Normal temperature, Normal weight bearing. No: Ron's sign - Neurological Neuro grossly intact: Yes Cognition: Normal Orientation: AAOx4 Brenda Coma Scale Eye Opening: Spontaneous [place] Coma Scale Verbal: Oriented Brenda Coma Scale Motor: Obeys Commands [place] Coma Scale Total: 15 Speech: Normal Motor strength normal: LUE, RUE, LLE, RLE Sensory: Normal - Psychological Associated symptoms: Normal affect, Normal mood - Skin Skin Temperature: Warm Skin Moisture: Dry Skin Color: Normal Course - Re-evaluation Re-evalutation: 08/10/20 11:36 Patient presents with right arm redness and swelling after being scratched by a cat. Her exam and work-up are consistent with cellulitis. She is been covered with Levaquin to cover cat scratch as well as some vancomycin. Patient is tachycardic and febrile however she is not hypotensive. Her lactate is normal. - Vital Signs Vital signs: Temp Pulse Resp BP Pulse Ox 101.7 F H 119 H 19 154/80 H 95 08/10/20 09:38 08/10/20 09:36 08/10/20 09:36 08/10/20 09:36 08/10/20 10:05 - Laboratory Result Diagrams: 08/10/20 10:05 08/10/20 10:05 Laboratory results interpreted by me: 08/10/20 08/10/20 10:05 10:05 WBC 21.2 H RDW 14.9 H Seg Neuts % (Manual) 80 H Abs Neuts (Manual) 17.0 H Sodium 132.4 L Est GFR (MDRD) Non-Af 57 L Glucose 151 H Discharge - Discharge Clinical Impression: Cellulitis Qualifiers: Site of cellulitis: extremity Site of cellulitis of extremity: upper extremity Laterality: right Qualified Code(s): L03.113 - Cellulitis of right upper limb Condition: Serious Disposition: ADMITTED INPATIENT Admitting Provider: Naun (Hospitalist) Unit Admitted: Medical Floor Referrals: DELFINA CABELLO FNP-C [Primary Care Provider] - Follow up as needed
[2020-08-10] MEDS ORDERED: NORMAL SALINE 1000 ML 1,000 ML IV ONE (12:43)
[2020-08-10] MEDS ORDERED: AMLODIPINE BESYLATE 10 MG TABLET PO ONE (13:02)
[2020-08-10] MEDS ORDERED: LISINOPRIL 10 MG TABLET PO ONE (13:02)
--- NOTE | 2020-08-10 14:42 | EKG REPORT ---
SEVERITY:- ABNORMAL ECG - SINUS RHYTHM BIATRIAL ABNORMALITIES LVH W/ REPOL ABNORMALITIES, POSSIBLE ISCHEMIA : Confirmed by: Catie Childers MD 10-Aug-2020 14:42:12
[2020-08-10 15:49] VITALS: BP 181/91
--- NOTE | 2020-08-10 17:49 | Progress Note ---
Provider Note Provider Note: MRS. SHELLEY RODRÍGUEZ is a 55 year old female with PMHx of HTN, CAD, and DM who presented to the emergency department for evaluation of right arm pain with associated redness, swelling, fever and chills. Pain is described as a burning and sharp sensation that radiates up her right arm. Symptoms originated after don sanchez scratched by her cat approximately 4 days ago, and have progressively increased in severity. Symptoms became so severe that she was unable to sleep last night. Reports history of cellulitis in the past. Denies history of MRSA. She was inevitably referred to the hospital service for observation and treatment. VS: BP: 134/87, HR: 90, Temp: 98.9 General appearance: PRESENT: cooperative, no acute distress Respiratory exam: PRESENT: Clear to auscultation bilaterally. Cardiovascular exam: PRESENT: Tachycardic. No murmur, gallops or rubs noted. GI/Abdominal exam: PRESENT: normal bowel sounds, soft. ABSENT: ascites, distended, firm, guarding, tenderness Rectal exam: PRESENT: deferred Extremities exam: Right upper extremity is tender and swollen mainly from the elbow to the wrist. It is warm and indurated. Limited range of motion of the forearm and wrist. Neurological exam: PRESENT: alert, awake, oriented to person, oriented to place, oriented to time, oriented to situation, CN II-XII grossly intact Psychiatric exam: PRESENT: appropriate affect, normal mood. ABSENT: agitated Skin exam: PRESENT: Scattered skin tears noted extremities. No open wounds noted. No drainage noted. Evaluation in the emergency department reviewed, significant for Leukocytosis, tachycardia (in the 90s), fever (101.7), and consistently elevated blood pressure. Lactate was normal. Exam and evaluation consistent with cellulitis. She was treated with a single dose of Levaquin for cat scratch coverage and vancomycin. Following evaluation of patient for admission patient stated that she did not wish to be treated inpatient and requested outpatient treatment. Patient is hemodynamically stable with normal lactate. She is afebrile after dose of T ylenol. Home medications for blood pressure were given in the ED, lowering her blood pressure prior to discharge. Provided patient with a prescription for Doxycycline 100mg to be taken twice daily for 5 days. She was instructed on elevation of her right arm and I demonstrated proper technique. Pain management at home includes Tylenol and Percocet, upon patient's request. She is to monitor her temperature at home and treat fever with Tylenol. We discussed the importance of appropriate and full management of cellulitis as she has history of DM and is at risk of complications. Further discussed proper treatment and management of skin tears and she is agreeing to participate in daily self-skin checks. She is to seek immediate medical attention if she experiences unbreakable fever, purulent drainage, increased pain, decreased function of right arm/hard regardless of treatment. She is to follow up with her PCP within 1 week. Patient expressed verbal agreement and understanding to the plan. Discussed patient with Dr. Magallon. She evaluated the patient with me and agrees that patient is stable for outpatient management. Patient was discharged from the ED.
== END 2020-08-10 15:48 | disposition home or self-care (01) ==
LOC: ER 09:30 → EH 12:10 → UNDOADMIN 12:10 → UNDODISIN 13:00 → EH 15:48
DX: L03.113 Cellulitis of right upper limb (principal); R22.31 Localized swelling, mass and lump, right upper limb; M79.601 Pain in right arm; R50.9 Fever, unspecified; D72.829 Elevated white blood cell count, unspecified; F17.200 Nicotine dependence, unspecified, uncomplicated; I10 Essential (primary) hypertension; J44.9 Chronic obstructive pulmonary disease, unspecified; Z88.0 Allergy status to penicillin; Z79.84 Long term (current) use of oral hypoglycemic drugs
CPT/HCPCS: 93005; 99284; 96375; 96365; 96366; 96368; 36415; 87040; 83605; 85025; 85610; 80053; 84484; 82803; 93010; A9270 ×3; J2270; J7030; J7120; J3370; J1956